=== PATIENT | female | born 1940 | race Caucasian/White ===

== ENCOUNTER 2020-08-22 07:32 | Outpatient (REF) | payer OTHER, SELFPAY ==
--- NOTE | 2020-08-22 08:07 | US_ITS ---
EXAMINATION: COLOR-FLOW DUPLEX IMAGING OF THE BILATERAL LOWER EXTREMITY ARTERIAL SYSTEM. VELOCITY MEASUREMENTS THROUGHOUT THE FEMORAL ARTERIES WITH ANKLE-BRACHIAL PERIPHERAL ARTERIAL TESTING. CLINICAL INFORMATION: This is an 80-year-old female with lower extremity edema. Peripheral vascular disease. Interventional Radiologist: Salvador Cavazos M.D., F.S.I.R., F.A.C.R. RIGHT FEMORAL RUNOFF VELOCITIES: The right common femoral artery measures 137 cm/s and biphasic. The right profunda femoral artery is 85 cm/s and is biphasic. Right proximal superficial femoral artery measures 92 cm/s and biphasic. Mid superficial femoral artery is 141 cm/s and biphasic. Distal right superficial femoral artery measures 333 cm/s and is biphasic. Right popliteal velocity measures 203 cm/s and is biphasic. The posterior tibial artery velocity measures 50 cm/s and was monophasic. Multiple collateral vessels are seen originating from the distal superficial femoral artery due to the high-grade stenosis. LEFT FEMORAL RUNOFF VELOCITIES: The left common femoral artery measures 107 cm/s and biphasic. The right profunda femoral artery is 95 cm/s and is biphasic. Right proximal superficial femoral artery measures 114 cm/s and biphasic. Mid superficial femoral artery is 122 cm/s and biphasic. Distal right superficial femoral artery measures 225 cm/s and is biphasic. Right popliteal velocity measures 146 cm/s and is biphasic. The posterior tibial artery velocity measures 13 cm/s and was monophasic. Multiple collateral vessels are seen in the leg extending off the distal superficial femoral artery due to the stenosis. Atherosclerotic plaque is seen throughout the arteries bilaterally. A cardiac arrhythmia was evident during the duplex portion of the examination. US/US arterial duplex LE IMPRESSION: 1. Abnormal peripheral arterial testing with bilateral hemodynamically significant high-grade stenoses within the superficial femoral arteries, right greater than left.
[2020-08-22 08:44] LABS: MANUAL DIFF FLAG NO
[2020-08-22 08:47] LABS: Basophils Percent Auto 0.4 % (0-2); Eosinophils Absolute Auto 0.2 X10*3/uL (0.0-0.4); Eosinophils Percent Auto 2.6 % (0-4); Hematocrit 23.3 % (37-47); Hemoglobin 7.2 g/dl (12.0-16.0); Imm Gran Abs Auto 0.03 X10*3/uL (0.00-0.03); Imm Gran Pct Auto 0.4 % (0.0-0.4); Lymphocytes Absolute Auto 1.6 X10*3/uL (1.2-4.9); Lymphocytes Percent Auto 22.5 % (20-40); Mean Corpuscular HGB Conc 30.9 g/dl (31.0-35.0); Mean Corpuscular Hemoglobin 27.6 pg (27.0-33.0); Mean Corpuscular Volume 89.3 fL (80-98); Mean Platelet Volume 11.8 fL (9.4-12.3); Monocytes Absolute Auto 0.5 X10*3/uL (0.1-1.2); Monocytes Percent Auto 6.3 % (2-11); Neutrophils Absolute Auto 4.9 X10*3/uL (2.0-8.3); Neutrophils Percent Auto 67.8 % (45-73); Platelet Count 319 X10*3/uL (160-400); Red Blood Count 2.61 X10*6/uL (4.20-5.50); Red Cell Distribution Width 14.5 % (11.0-16.0); White Blood Count 7.3 X10*3/uL (4.8-10.8)
[2020-08-22 08:54] LABS: Estimated Average Glucose 169 mg/dL; Hemoglobin A1c % 7.5 %
[2020-08-22 09:20] LABS: Albumin Level 3.7 g/dL (3.5-5.0); Anion Gap 13 (12-20); Blood Urea Nitrogen 43 mg/dL (9-16); Carbon Dioxide 29 mmol/L (22-29); Chloride 102 mmol/L (96-108); Estimated Glomerular Filt Rate 17; Iron 44 mcg/dL (30-160); Magnesium 1.5 mg/dL (1.6-2.6); Percent Iron Saturation 15 % (15-50); Phosphorus 3.1 mg/dL (2.7-4.5); Potassium 4.1 mmol/l (3.3-5.1); Sodium 140 mmol/L (135-145); Total Iron Binding Capacity 286 mcg/dL (228-428); Unsaturated Iron Binding 242 ug/dL; Uric Acid 6.2 mg/dL (2.4-5.7)
[2020-08-22 09:25] LABS: Anion Gap 13 (12-20); Blood Urea Nitrogen 44 mg/dL (9-16); Calcium 8.8 mg/dL (8.4-10.2); Carbon Dioxide 28 mmol/L (22-29); Chloride 103 mmol/L (96-108); Cholesterol 156 mg/dL; Estimated Glomerular Filt Rate 17; Glucose Fasting 188 mg/dL (60-99); HDL Cholesterol 47 mg/dL; LDL Cholesterol Calculated 63 mg/dl; Sodium 140 mmol/L (135-145); Triglycerides 231 mg/dL
[2020-08-22 09:42] LABS: Ferritin 9 ng/mL (10-250); Vitamin D 25-OH Total 22.9 ng/mL (>30)
[2020-08-22 10:03] LABS: Renal w Reflex Lab Use Only Order verified
== END 2020-08-22 07:33 | disposition home or self-care (01) ==
LOC: HO.LAB 07:32
PROVIDERS: PCP Nurse Practitioner Family; Visit Provider Internal Medicine Nephrology
DX: R60.0 Localized edema (principal); I73.9 Peripheral vascular disease, unspecified; E11.22 Type 2 diabetes mellitus with diabetic chronic kidney disease; I12.9 Hypertensive chronic kidney disease with stage 1 through stage 4 chronic kidney disease, or unspecified chronic kidney disease; N18.30 Chronic kidney disease, stage 3 unspecified; R80.9 Proteinuria, unspecified; Z79.1 Long term (current) use of non-steroidal anti-inflammatories (NSAID)
CPT/HCPCS: 36415; 80048; 80051; 80061; 82040; 82306; 82310; 82565; 82728; 83036; 83540; 83735; 84100; 84520; 84550; 85025; 93925

== ENCOUNTER 2020-08-29 09:28 | Outpatient (REF) | payer OTHER, SELFPAY ==
[2020-08-29 10:35] LABS: Glucose Urine UA 100 MG/DL (NEG); Leukocyte Esterase Urine NEG (NEG); Nitrite Urine NEG (NEG); Urine Blood TRACE (NEG); Urine Ketones NEG (NEG); Urine Protein 3+ MG/DL (NEG-TRACE)
[2020-08-29 10:46] LABS: Appearance Urine HAZY; Color Urine YELLOW
[2020-08-29 10:53] LABS: Anion Gap 19 (12-20); Blood Urea Nitrogen 38 mg/dL (9-16); Calcium 8.9 mg/dL (8.4-10.2); Carbon Dioxide 25 mmol/L (22-29); Chloride 101 mmol/L (96-108); Estimated Glomerular Filt Rate 19; Phosphorus 3.6 mg/dL (2.7-4.5); Potassium 4.7 mmol/l (3.3-5.1); Sodium 140 mmol/L (135-145)
[2020-08-29 11:03] LABS: RBC Urine 0-2 /HPF (0); Squamous Epithelial Cell Urine 1+ /LPF; WBC Urine 0 /HPF (0-4)
[2020-08-29 11:04] LABS: Amorphous Sediment Urine 1+ /LPF
[2020-08-29 11:11] LABS: Creatinine Urine 83.99 mg/dL
[2020-08-29 11:34] LABS: Renal w Reflex Lab Use Only Order verified
[2020-08-29 11:44] LABS: Total Protein Urine Random 1470 mg/dL (<12)
== END 2020-08-29 09:29 | disposition home or self-care (01) ==
LOC: HO.LAB 09:28
PROVIDERS: PCP Nurse Practitioner Family; Visit Provider Internal Medicine Nephrology
DX: E11.22 Type 2 diabetes mellitus with diabetic chronic kidney disease (principal); I12.9 Hypertensive chronic kidney disease with stage 1 through stage 4 chronic kidney disease, or unspecified chronic kidney disease; N18.30 Chronic kidney disease, stage 3 unspecified; R80.9 Proteinuria, unspecified; Z79.1 Long term (current) use of non-steroidal anti-inflammatories (NSAID)
CPT/HCPCS: 36415; 80051; 81001; 82043; 82310; 82565; 84100; 84156; 84520

== ENCOUNTER 2021-01-07 14:14 | Inpatient (IN) | payer MEDICARE, SELFPAY ==
[2021-01-07] VITALS (11 sets, daily range): BP systolic 164–191; BP diastolic 70–104; PULSE 82–100; RESP 18–27; TEMP 35.6–37.3; O2SAT 88–95; BMI 36.3
--- NOTE | ~2021-01-07 | US_ITS ---
EXAMINATION: US VENOUS ULTRASOUND WITH DOPPLER LOWER EXTREMITY, RIGHT CLINICAL INFORMATION: Right lower extremity swelling. Right lower extremity edema. COMPARISON: None TECHNIQUE: Ultrasound of the deep veins is performed from the hip to the calf with compression sonography and color and pulse Doppler assessment. Spectral analysis with color-flow imaging is performed. FINDINGS: There is normal venous compression and respiratory variation and augmented flow. The visualized common femoral vein, superficial femoral vein, profunda femoral vein, popliteal vein, and the trifurcation region shows no evidence of deep venous thrombosis. There is no significant popliteal fossa cyst. If the patient's symptoms persist, followup ultrasound in 5 days 7 days might be of value to exclude proximal propagation from a non-visualized calf vein. US/US venous duplex LE RT IMPRESSION: No DVT demonstrated in the right lower extremity.
--- NOTE | ~2021-01-07 | CT_ITS ---
EXAMINATION: CT CHEST WITHOUT CONTRAST CLINICAL INFORMATION: Assess soft tissue fullness COMPARISON: Radiographs the same day TECHNIQUE: Multidetector volumetric CT imaging of the chest was done. Axial MIP volume rendering provided. Sagittal and coronal reformatted images were obtained. This CT examination was performed using dose optimization techniques as appropriate, variously including the following: *Automated exposure control *Adjustment of mA and/or kV according to patient size (this includes techniques or standardized protocols for targeted exams where dose is matched to indication/reason for exam; i.e. extremities or head) *Use of iterative reconstruction technique DLP: 331 mGy-cm FINDINGS: WEBFOCUS DEVELOPER: Stable LUNGS: Extensive groundglass opacities upper lung zones and extensive consolidation likely accommodation of atelectasis pneumonia. Lower lobes. Surrounding moderate amount of sludge layering simple pleural effusions bilaterally. Air bronchograms noted. No discrete mass lesion. Slight motion degradation limits detail assessment. MEDIASTINUM: There is no mediastinal mass. Initial radiographic findings can be attributed. Normal pulmonary vasculature and ectasia. No adenopathy. No anterior mediastinal lesion. Reactive appearing subcentimeter mediastinal hilar lymph nodes. Moderately severe coronary atherosclerosis. PLEURA: As above AXILLA: Multiple small rounded lymph nodes extending into the retropectoral location measuring up to 12 mm short axis. UPPER ABDOMEN: Tiny gallstones without acute inflammatory changes. Tiny low-density lesion left lobe liver statistically a small cyst. This measures approximately 1 cm. OSSEOUS STRUCTURES: Chronic appearing moderate compression fracture anterior column of a lower dorsal vertebral body near thoracolumbar junction. CT/CT chest wo con IMPRESSION: There is no mediastinal mass. Extensive parenchymal disease consistent with resolving pneumonia with layering moderate-sized right greater than left pleural effusions. Mildly prominent lymph nodes likely reactive as above. Severe coronary atherosclerosis.
--- NOTE | ~2021-01-07 | XR_ITS ---
EXAMINATION: XR CHEST CLINICAL INFORMATION: Shortness of breath. COMPARISON: None TECHNIQUE: Frontal view of the chest was obtained. FINDINGS: Asymmetric right perihilar soft tissue fullness is present. Right paratracheal soft tissue fullness is also noted. Nonspecific bibasilar airspace disease. The heart size is within normal limit. No evidence of any pleural effusion or pneumothorax. XR/XR chest 1V IMPRESSION: Nonspecific bibasilar airspace disease and asymmetric fullness of the right hilum and paratracheal nonspecific opacity.
--- NOTE | 2021-01-07 14:33 | ECG_ITS ---
Test Reason : SOB Blood Pressure : / mmHG Vent. Rate : 093 BPM Atrial Rate : 093 BPM P-R Int : 128 ms QRS Dur : 094 ms QT Int : 382 ms P-R-T Axes : 041 002 064 degrees QTc Int : 474 ms Normal sinus rhythm Normal ECG When compared to the previous EKG of No significant changes seen Referred By: Zully Sanford Electronically Signed By:Toney Long
--- NOTE | 2021-01-07 14:35 | ED.SOB ---
HPI - SOB/Dyspnea General Chief Complaint: Upper Respiratory Symptoms Stated Complaint: SOB Time Seen by Provider: 01/07/21 14:32 Source: patient, family (Two daughters), EMS and site interpreter Mode of arrival: EMS Limitations: no limitations History of Present Illness HPI Narrative: 80 years old female brought in by EMS for evaluation of shortness of breath since yesterday. Patient is a poor historian unable to give a full history history was obtained from the daughters, patient since yesterday been complaining of tightness of chest with difficulty breathing and audible wheezing, patient also has been complaining of sore throat and decreased p.o. intake. Patient has been vaccinated for COVID x2. Family declined history of COPD. Reviewing patient chart patient with history of type 2 diabetes, hypertension, dyslipidemia, chronic kidney disease, PVD Patient initially has O2 sat of 86% on room air patient was placed on oxygen she is 91%. Related Data Home Medications Medication Instructions Recorded Confirmed aspirin 81 mg tablet,delayed 81 mg PO DAILY 06/26/20 12/26/20 release atorvastatin 40 mg tablet 40 mg PO DAILY 06/26/20 12/26/20 chlorthalidone 25 mg tablet 0 mg PO 06/26/20 12/26/20 gabapentin 300 mg capsule 300 mg PO TID 06/26/20 12/26/20 losartan 100 mg tablet 100 mg PO DAILY 06/26/20 12/26/20 metformin 1,000 mg tablet 0 mg PO 06/26/20 12/26/20 amlodipine 5 mg tablet 10 mg PO DAILY tab 12/26/20 12/26/20 Previous Rx's Medication Instructions Recorded docusate sodium 100 mg capsule 100 mg PO DAILY PRN #30 cap 06/26/20 halobetasol propionate 0.05 % 1 appl TOPICAL BID 15 Days #15 g 07/31/20 topical cream miscellaneous medical supply #1 ea 10/17/20 hydroxyzine HCl 50 mg tablet 50 mg PO BEDTIME 30 Days #30 tab 12/26/20 miscellaneous medical supply #1 ea 12/26/20 triamcinolone acetonide 0.1 % 1 appl TOPICAL BID 30 Days #30 g 12/26/20 topical cream Allergies Allergy/AdvReac Type Severity Reaction Status Date / Time Iodinated Contrast Media Allergy Unknown UNKNOWN Verified 12/26/20 13:27 [IODINATED CONTRAST MEDIA] Review of Systems Review of Systems: All other systems are reviewed and are negative Constitutional: Reports as per HPI and Reports no additional constitutional complaints Eyes: Reports as per HPI and Reports no additional eye complaints Reports system reviewed and no additional complaints, except as documented Cardiovascular: Reports as per HPI and Reports no additional cardiovascular complaints Respiratory: Reports as per HPI and Reports no additional respiratory complaints Gastrointestinal: Reports as per HPI and Reports no additional gastrointestinal complaints Genitourinary: Reports no additional female genitourinary complaints Musculoskeletal: Reports no additional musculoskeletal complaints Skin/Breast: Reports system reviewed and no additional complaints, except as docu Psychiatric: Reports no additional psychiatric complaints Endocrine: Reports no additional endocrine complaints Hematologic/Lymphatic: Reports no additional hematologic/lymphatic complaints Allergic/Immunologic: Reports no additional allergic/immunologic complaints Reports system reviewed and no additional complaints, except as documented and Reports Abnormal speech present [facility] Past Medical History Medical History CKD (chronic kidney disease) Diabetes Femoral artery stenosis High cholesterol Hypertension Lower extremity edema Psoriasis of scalp PVD (peripheral vascular disease) Surgical History History of female sterilization History of shoulder surgery Family History Family History Father No problems noted. Mother No problems noted. Social History Social History Alcohol intake: never Smoking Status: Never smoker Use of substances other than those prescribed or required for medical reasons: No Advance Directives: Yes Advance Directives Information Provided: Yes Advance Directives on File: No Physical Exam Vital Signs: Vital Signs: Last Vital Signs Temp 99.2 F 01/07/21 14:17 Pulse 100 01/07/21 14:17 Resp 27 H 01/07/21 14:17 BP 164/70 H 01/07/21 14:17 Pulse Ox 88 L 01/07/21 14:40 Oxygen Flow Rate 4 01/07/21 14:17 Body Mass Index 36.3 Vital signs have been reviewed as appeared to be correct. Blood pressure elevated. Heart rate elevated. Respiration rate normal. Temperature normal. Oxygen saturation is low. Appearance: Alert. Oriented X3. No acute distress. Head: Normal external exam. Normocephalic. Atraumatic. No Leyva signs noted. No raccoon eyes noted Eyes: PERRLA. EOMI. Conjunctiva and sclera normal. Eyelids normal. ENT: TM's Normal. Pharynx normal. Uvula midline. Moist mucous membranes. No trismus noted. No drooling noted. No muffled voice noted. Neck: Normal inspection. Neck supple. FROM. No adenopathy. Thyroid Normal. No meningeal signs. No neck mass noted. CVS: Normal heart rate and rhythm. Heart sound normal. No murmurs noted. Pulses normal throughout. Respiratory: No respiratory distress. Painless inspiration. Breath sounds normal. No wheezes/rales/rhonchi noted. Chest nontender. No accessory muscle usage noted or decreased air movement noted. Abdomen: Soft and nontender. Bowel sounds normal in all 4 quadrants. No distention noted. No organomegaly noted. No visible injury noted. Rectal exam: Brown stool with trace of blood positive for guaiac. Back: No CVA tenderness. Full range of motion noted. Skin: Skin warm and dry. Normal skin color. Normal skin turgor. No rashes/lesions/lacerations noted. Extremities: No lower extremity edema. Extremities exhibit normal range of motion. Extremities nontender. Neuro: Oriented X 3. No motor deficit. No sensory deficit. Reflexes normal. Course Course Course Narrative: Assessment and plan. 80-year-old female with history of chronic anemia found to have worsening of her anemia with dropping of her hemoglobin, patient positive to blood in the stool, patient was seen and evaluated by GI consult in the emergency department. Patient only 2 units of RBCs blood transfusion since patient is symptomatic from severe anemia (patient is hypoxic). MDM - SOB/Dyspnea Lab Data Attestation: I reviewed the patient's lab results. Result diagrams: 01/07/21 14:34 01/07/21 14:34 Labs: Lab Results 01/07/21 01/07/21 01/07/21 Range/Units 14:34 14:34 14:34 WBC 8.4 (4.8-10.8) X10*3/uL RBC 2.28 L (4.20-5.50) X10*6/uL Hgb 6.5 L* (12.0-16.0) g/dl Hct 20.8 L* (37-47) % MCV 91.2 (80-98) fL MCH 28.5 (27.0-33.0) pg MCHC 31.3 (31.0-35.0) g/dl RDW 15.9 (11.0-16.0) % Plt Count 334 (160-400) X10*3/uL MPV 10.8 (9.4-12.3) fL Immature Gran % (Auto) 0.6 H (0.0-0.4) % Neut % (Auto) 84.2 H (45-73) % Lymph % (Auto) 9.6 L (20-40) % [place] % (Auto) 5.3 (2-11) % Eos % (Auto) 0.1 (0-4) % Baso % (Auto) 0.2 (0-2) % Lymph # (Auto) 0.8 L (1.2-4.9) X10*3/uL [place] # (Auto) 0.5 (0.1-1.2) X10*3/uL Eos # (Auto) 0.0 (0.0-0.4) X10*3/uL Baso # (Auto) 0.0 (0.0-0.2) X10*3/uL Abs Immat Gran (auto) 0.05 H (0.00-0.03) X10*3/uL Absolute Neuts (auto) 7.1 (2.0-8.3) X10*3/uL Absolute Nucleated RBC 0.000 (0.0-0.012) X10*3/uL Nucleated RBC % (auto) 0.0 (0.0-0.2) /100WBC Sodium 140 (135-145) mmol/L Potassium 5.5 H (3.3-5.1) mmol/L Chloride 106 (96-108) mmol/L Carbon Dioxide 17 L (22-29) mmol/L Anion Gap 23 H (12-20) BUN 65 H D (9-16) mg/dL Creatinine 3.41 H (0.5-1.4) mg/dL Estim Creat Clear Calc 13.7 Estimated GFR 13 Random Glucose 268 H (60-115) mg/dL Lactic Acid 3.4 H* (0.5-2.0) mmol/L Calcium 9.0 (8.4-10.2) mg/dL Total Bilirubin 0.3 (0.0-1.0) mg/dL Direct Bilirubin < 0.2 (0.0-0.5) mg/dL AST 13 (5-31) U/L ALT 11 (0-31) U/L Alkaline Phosphatase 83 (39-117) U/L Troponin I High Sens (<3.5-17.0) ng/L B-Natriuretic Peptide (<100) pg/mL Total Protein 6.9 (6.5-8.0) g/dL Albumin 3.7 (3.5-5.0) g/dL Lipase 28 (8-78) U/L Stool Occult Blood (NEGATIVE) COVID-19 (ROBBIE) (Negative) COVID-19 Clin Com 01/07/21 01/07/21 01/07/21 Range/Units 14:34 14:35 14:50 WBC (4.8-10.8) X10*3/uL RBC (4.20-5.50) X10*6/uL Hgb (12.0-16.0) g/dl Hct (37-47) % MCV (80-98) fL MCH (27.0-33.0) pg MCHC (31.0-35.0) g/dl RDW (11.0-16.0) % Plt Count (160-400) X10*3/uL MPV (9.4-12.3) fL Immature Gran % (Auto) (0.0-0.4) % Neut % (Auto) (45-73) % Lymph % (Auto) (20-40) % [place] % (Auto) (2-11) % Eos % (Auto) (0-4) % Baso % (Auto) (0-2) % Lymph # (Auto) (1.2-4.9) X10*3/uL [place] # (Auto) (0.1-1.2) X10*3/uL Eos # (Auto) (0.0-0.4) X10*3/uL Baso # (Auto) (0.0-0.2) X10*3/uL Abs Immat Gran (auto) (0.00-0.03) X10*3/uL Absolute Neuts (auto) (2.0-8.3) X10*3/uL Absolute Nucleated RBC (0.0-0.012) X10*3/uL Nucleated RBC % (auto) (0.0-0.2) /100WBC Sodium (135-145) mmol/L Potassium (3.3-5.1) mmol/L Chloride (96-108) mmol/L Carbon Dioxide (22-29) mmol/L Anion Gap (12-20) BUN (9-16) mg/dL Creatinine (0.5-1.4) mg/dL Estim Creat Clear Calc Estimated GFR Random Glucose (60-115) mg/dL Lactic Acid (0.5-2.0) mmol/L Calcium (8.4-10.2) mg/dL Total Bilirubin (0.0-1.0) mg/dL Direct Bilirubin (0.0-0.5) mg/dL AST (5-31) U/L ALT (0-31) U/L Alkaline Phosphatase (39-117) U/L Troponin I High Sens 79.6 H (<3.5-17.0) ng/L B-Natriuretic Peptide 1509 H (<100) pg/mL Total Protein (6.5-8.0) g/dL Albumin (3.5-5.0) g/dL Lipase (8-78) U/L Stool Occult Blood POSITIVE (NEGATIVE) COVID-19 (ROBBIE) Negative (Negative) COVID-19 Clin Com See Note Imaging Data Chest x-ray: Radiologist's impression: Nonspecific bibasilar airspace disease and asymmetric fullness of the right hilum and paratracheal nonspecific opacity. ECG Data Interpretation: Normal sinus rhythm at 93 beats per minute, left axis deviation, normal intervals, no ST-T changes. Critical Care Time Critical Care Time Critical Care Time: Yes Total Critical Care Time: 60 Attestation: I spent 60 minutes providing critical care service to the patient, this including time spent at the bedside to evaluate the patient, reassess the patient, monitoring vital signs, review labs, and radiographic studies, counseling the patient/family and getting consent for blood transfusion, discussing the case with consultants, disposition the patient. Discharge Plan Discharge Clinical Impression: Hypoxia Anemia Qualifiers: Anemia type: unspecified type Qualified Code(s): D64.9 - Anemia, unspecified Chronic renal insufficiency Qualifiers: Chronic kidney disease stage: unspecified stage Qualified Code(s): N18.9 - Chronic kidney disease, unspecified Patient Disposition: Admitted As Inpatient
[2021-01-07 14:41] LABS: MANUAL DIFF FLAG NO
[2021-01-07 14:42] LABS: Basophils Percent Auto 0.2 % (0-2); Eosinophils Percent Auto 0.1 % (0-4); Imm Gran Abs Auto 0.05 X10*3/uL (0.00-0.03); Imm Gran Pct Auto 0.6 % (0.0-0.4); Lymphocytes Absolute Auto 0.8 X10*3/uL (1.2-4.9); Lymphocytes Percent Auto 9.6 % (20-40); Mean Corpuscular HGB Conc 31.3 g/dl (31.0-35.0); Mean Corpuscular Hemoglobin 28.5 pg (27.0-33.0); Mean Corpuscular Volume 91.2 fL (80-98); Mean Platelet Volume 10.8 fL (9.4-12.3); Monocytes Absolute Auto 0.5 X10*3/uL (0.1-1.2); Monocytes Percent Auto 5.3 % (2-11); Neutrophils Absolute Auto 7.1 X10*3/uL (2.0-8.3); Neutrophils Percent Auto 84.2 % (45-73); Platelet Count 334 X10*3/uL (160-400); Red Blood Count 2.28 X10*6/uL (4.20-5.50); Red Cell Distribution Width 15.9 % (11.0-16.0); White Blood Count 8.4 X10*3/uL (4.8-10.8)
[2021-01-07 14:45] LABS: Hematocrit 20.8 % (37-47); Hemoglobin 6.5 g/dl (12.0-16.0)
[2021-01-07 14:54] LABS: OBS Int Ctl Valid YES; OBS1 POSITIVE (NEGATIVE)
--- NOTE | 2021-01-07 15:05 | PM.GICN ---
History of Present Illness Data of Consult Service Date: 01/07/21 Primary Care Provider: Kay Mata MD HPI 80 yr old f with hx of CKD, DM, HTN, chronic diastolic chf, PAD, who I am seeing for assessment for anemia. She had 2 d hx of increasing SOB and exertional dyspnea also with orthopnea and increased ankle edema. She denied chest pain, cough, or sputum. She denies any fever, chills, blood per rectum, melena. No abdominal pain. She does not use O2 at baseline and is usually able to ambulate with a walker and is self caring per the daghter. In ED noted to be hypoxic, and required to be put on high flow o2. Labs: Hgb 6.5 -gradually downtrending over the last year, creatinne 3.41, iron sat low, high BNP, raised trop (urine PCr ratio elevated earlier this year with pos protein on UA) She was transfused 1 unit in the ED CT scan with severe coronary atherosclerosis, pleural effusions, and groundglass opacities Review of Systems Review of Systems: Constitutional : No Weight loss, No Fever, No Chills ENT/Mouth : No sore throat, No Rhinorrhea Eyes: No Swelling, No Redness Cardiovascular : No Chest Pain, N Respiratory : No Cough, No Sputum, No Wheezing Gastrointestinal : see HPI Genitourinary : NO Dysuria, No Urinary Frequency, No Hematuria, No Urgency Musculoskeletal : No joint pain, No Myalgias, No Joint Swelling Skin : No Skin Lesions, No rash Neuro : No Weakness, No Numbness, No Dizziness, No Headache Psych : No Anxiety/Panic, No Depression Heme/Lymph: No Bruising, No Lymphadenopathy Endocrine : No Polyuria, No Polydipsia All other systems reviewed and are negative. [facility], [facility] Past Medical History Medical History CKD (chronic kidney disease) Diabetes Femoral artery stenosis High cholesterol Hypertension Lower extremity edema Psoriasis of scalp PVD (peripheral vascular disease) Family History Family History Father No problems noted. Mother No problems noted. Surgical History Surgical History History of female sterilization History of shoulder surgery Social History Social History Alcohol intake: never Smoking Status: Never smoker Use of substances other than those prescribed or required for medical reasons: No Advance Directives: Yes Advance Directives Information Provided: Yes Advance Directives on File: No Meds Allergies Allergy/AdvReac Type Severity Reaction Status Date / Time Iodinated Contrast Media Allergy Unknown UNKNOWN Verified 12/26/20 13:27 [IODINATED CONTRAST MEDIA] Home Medications Medication Instructions Recorded Confirmed Last Taken Type amlodipine 10 mg PO DAILY 01/07/21 01/07/21 Unknown History aspirin 81 mg PO DAILY 01/07/21 01/07/21 Unknown History atorvastatin 40 mg PO DAILY 01/07/21 01/07/21 Unknown History chlorthalidone 25 mg PO DAILY 01/07/21 01/07/21 Unknown History gabapentin 300 mg PO DAILY 01/07/21 01/07/21 Unknown History losartan 100 mg PO DAILY 01/07/21 01/07/21 Unknown History metformin 1,000 mg PO BID 01/07/21 01/07/21 Unknown History Physical Exam Vital Signs: Vital Signs: Last Vital Signs Temp 99.2 F 01/07/21 14:17 Pulse 100 01/07/21 14:17 Resp 27 H 01/07/21 14:17 BP 164/70 H 01/07/21 14:17 Pulse Ox 88 L 01/07/21 14:40 Oxygen Flow Rate 4 01/07/21 14:17 Body Mass Index 36.3 EXAM: GENERAL: The patient is well developed and nontoxic, tachypneic VITAL SIGNS:see workflow HEENT: Nonicteric sclerae, PERRLA, EOMI. Oropharynx clear. Moist mucous membranes. Conjunctivae appear well perfused. No thyroid mass. CHEST: Chest wall is nontender. HEART: Regular rate and rhythm without murmurs. LUNGS: coarse crackles both bases, SOB at rest ABDOMEN: Soft, positive bowel sounds, nontender, no organomegaly.no flank tenderness GENITAL:not done RECTAL: not done SKIN: No rash, no excessive bruising, petechiae, or purpura. NEUROLOGIC: Cranial nerves II-XII intact without motor/sensory deficit. PSych-appropriate affect Extrem: General: Yes edema Results Labs CBC & Chem 7: 01/07/21 14:34 01/07/21 14:34 Labs: Short CBC 01/07/21 Range/Units 14:34 WBC 8.4 (4.8-10.8) X10*3/uL Hgb 6.5 L* (12.0-16.0) g/dl Hct 20.8 L* (37-47) % Plt Count 334 (160-400) X10*3/uL Imaging Chest x-ray: Attestation: I personally reviewed and interpreted this imaging study as follows: My impression: rotated film-right oblique view, left costophrenic angle obliterated suggesting pleural effusion, alveolar shadowing right LL Assessment and Plan (1) Anemia: Qualifiers: Anemia type: unspecified type Qualified Code(s): D64.9 - Anemia, unspecified Status: Acute 1/ Progressive iron def anemia, patient said it has been many years since she had any type of endosocpy whch was in [place], concern would e neoplasia, ddx; AVM, malabsorption, gastritis, PUD, enteropathy. Also compunded by CKD prob from HTN/DM with evidence of nephropathy Anemia of chronic disease Right now she would be unstable for any type of endoscopy given cardio respiratory failure and requirement for high flow O2 from what appears to be CHF. ECG with normal SR. Covid was negative (could be false negative, might need to recheck if no improvement) PLAN: 1/ Optimize cardio repiratory status, transfuse as needed aim for HGb 9-10 g/dl 2/ diurese, hold nephrotoxins, LEANDRO-i/ARB 3/ can add PPI e.g pantoprazole 40 mg BID 4/ once she is more stable can re evaluate for EGD and colonoscopy, possibly before d/c
[2021-01-07 15:07] LABS: COVID-19 Test Negative (Negative)
[2021-01-07 15:15] LABS: Lactic Acid 3.4 mmol/L (0.5-2.0)
[2021-01-07 15:20] LABS: Alanine Aminotransferase 11 U/L (0-31); Albumin Level 3.7 g/dL (3.5-5.0); Alkaline Phosphatase 83 U/L (39-117); Anion Gap 23 (12-20); Aspartate Amino Transferase 13 U/L (5-31); Bilirubin Direct < 0.2 mg/dL (0.0-0.5); Bilirubin Total 0.3 mg/dL (0.0-1.0); Blood Urea Nitrogen 65 mg/dL (9-16); Carbon Dioxide 17 mmol/L (22-29); Chloride 106 mmol/L (96-108); Creatinine Clr Calc Pharmacy 13.7; Estimated Glomerular Filt Rate 13; Glucose Random 268 mg/dL (60-115); Lipase 28 U/L (8-78); Potassium 5.5 mmol/L (3.3-5.1); Sodium 140 mmol/L (135-145); Total Protein 6.9 g/dL (6.5-8.0)
[2021-01-07 15:26] LABS: B Type Natriuretic Peptide 1509 pg/mL (<100); Troponin-I High Sensitivity 79.6 ng/L (<3.5-17.0)
--- NOTE | 2021-01-07 15:29 | PC.NURSE ---
daughter at bedside. left phone number. aware of plan of care and denied having any questions.
--- NOTE | 2021-01-07 16:04 | P.HPHOSP_ITS ---
History of Present Illness Date of Service: 01/07/21 Chief Complaint: sob 80F with pmh of CKDIV (baseline creatinine around 2.5), DM, HTN, chronic diastolic chf, PAD, came to ED via EMS complaining of SOB. Patient states that she started feeling short of breath about 2 days prior to presentation. She states that shortness of breath is worse on lying down and relieved by sitting up. It is worse on exertion. She does have chronic shortness of breath that has worsened, but last 2 days have been the worst. On day of presentation patient was so short of breath that EMS was called and brought her to the ED. Patient also noted worsening of chronic lower extremity edema. She denies any fever, chills, blood per rectum. In ED noted to be hypoxic hemoglobin decrease of 6.5 (has been slowly decreasing over last year), acute kidney injury with a creatinine of 3.41, chest x-ray showed nonspecific bibasilar airspace disease an asymmetric fullness of the right hilum and paratracheal nonspecific opacity. She was transfused 1 unit in the ED. Review of Systems Review of Systems: Constitutional: Denies fever, denies Chills Eyes: denies blurry vision ENT: denies sore throat CVS: chest pain Respiratory: dyspnea GI: no abdominal pain : denies dysuria MSK: denies neck pain Skin: denies rash Neuro: denies specific motor weakness Psych: denies suicidal ideation Endocrine: denies heat/cold intoleratnce Hematologic: denies easy bleeding Allergy: denies hives [facility] Medical History CKD (chronic kidney disease) Diabetes Femoral artery stenosis High cholesterol Hypertension Lower extremity edema Psoriasis of scalp PVD (peripheral vascular disease) Family History Father No problems noted. Mother No problems noted. Family history: reviewed and not pertinent Surgical History History of female sterilization History of shoulder surgery Social History Alcohol intake: never Smoking Status: Never smoker Use of substances other than those prescribed or required for medical reasons: No Advance Directives: Yes Advance Directives Information Provided: Yes Advance Directives on File: No Meds Allergies Allergy/AdvReac Type Severity Reaction Status Date / Time Iodinated Contrast Media Allergy Unknown UNKNOWN Verified 12/26/20 13:27 [IODINATED CONTRAST MEDIA] Home Medications Medication Instructions Recorded Confirmed Last Taken Type amlodipine 10 mg PO DAILY 01/07/21 01/07/21 Unknown History aspirin 81 mg PO DAILY 01/07/21 01/07/21 Unknown History atorvastatin 40 mg PO DAILY 01/07/21 01/07/21 Unknown History chlorthalidone 25 mg PO DAILY 01/07/21 01/07/21 Unknown History gabapentin 300 mg PO DAILY 01/07/21 01/07/21 Unknown History losartan 100 mg PO DAILY 01/07/21 01/07/21 Unknown History metformin 1,000 mg PO BID 01/07/21 01/07/21 Unknown History Physical Exam Vital Signs and Narrative: Vital Signs: Last Vital Signs Temp 99.2 F 01/07/21 14:17 Pulse 100 01/07/21 14:17 Resp 27 H 01/07/21 14:17 BP 164/70 H 01/07/21 14:17 Pulse Ox 88 L 01/07/21 14:40 Oxygen Flow Rate 4 01/07/21 14:17 Body Mass Index 36.3 General: no acute distress now while on ventimask HEENT: atraumatic Neck: normal to visual inspection CVS: S1, S2, RRR, 3+ edema Resp: diminished Chest: non tender GI: soft, non tender, non distended : no CVA tenderness Skin: no rashes Extremities: no edema Neuro: Oriented X3, grossly intact Psych: cooperative Results Labs CBC and Chem 7: 01/07/21 14:34 01/07/21 14:34 Labs: Laboratory Results - last 24 hr 01/07/21 01/07/21 01/07/21 14:34 14:34 14:34 MCV 91.2 MCH 28.5 MCHC 31.3 RDW 15.9 Plt Count 334 MPV 10.8 Immature Gran % (Auto) 0.6 H Neut % (Auto) 84.2 H Lymph % (Auto) 9.6 L [place] % (Auto) 5.3 Eos % (Auto) 0.1 Baso % (Auto) 0.2 Lymph # (Auto) 0.8 L [place] # (Auto) 0.5 Eos # (Auto) 0.0 Baso # (Auto) 0.0 Abs Immat Gran (auto) 0.05 H Absolute Neuts (auto) 7.1 Absolute Nucleated RBC 0.000 Nucleated RBC % (auto) 0.0 Anion Gap 23 H Estim Creat Clear Calc 13.7 Estimated GFR 13 Random Glucose 268 H Lactic Acid 3.4 H* Calcium 9.0 Total Bilirubin 0.3 Direct Bilirubin < 0.2 AST 13 ALT 11 Alkaline Phosphatase 83 Troponin I High Sens B-Natriuretic Peptide Total Protein 6.9 Albumin 3.7 Lipase 28 Stool Occult Blood COVID-19 (ROBBIE) COVID-19 Clin Com 01/07/21 01/07/21 01/07/21 14:34 14:35 14:50 MCV MCH MCHC RDW Plt Count MPV Immature Gran % (Auto) Neut % (Auto) Lymph % (Auto) [place] % (Auto) Eos % (Auto) Baso % (Auto) Lymph # (Auto) [place] # (Auto) Eos # (Auto) Baso # (Auto) Abs Immat Gran (auto) Absolute Neuts (auto) Absolute Nucleated RBC Nucleated RBC % (auto) Anion Gap Estim Creat Clear Calc Estimated GFR Random Glucose Lactic Acid Calcium Total Bilirubin Direct Bilirubin AST ALT Alkaline Phosphatase Troponin I High Sens 79.6 H B-Natriuretic Peptide 1509 H Total Protein Albumin Lipase Stool Occult Blood POSITIVE COVID-19 (ROBBIE) Negative COVID-19 Clin Com See Note Imaging Radiologist's Impressions: Impressions Chest X-Ray 01/07/21 14:32 IMPRESSION: Nonspecific bibasilar airspace disease and asymmetric fullness of the right hilum and paratracheal nonspecific opacity. Assessment and Plan (1) Hypoxia: Status: Acute 80F presented with sob, found to be hypoxic, anemic, dari, elevated bnp Acute hypoxic respiratory failure Acute on chronic diastolic CHF and symptomatic anemia Transfuse PRBC Monitor CBC Suspect anemia mostly related to renal failure, possibly some bleeding sources well NPO after midnight GI to evaluate IV Lasix, monitor BMP closely Check echo Acute kidney injury on CKD 4 Suspect cardiorenal IV Lasix, monitor BMP Soft tissue fullness on chest x-ray Follow-up CT chest Peripheral vascular disease Hold aspirin for anemia Continue statin Diabetes Hold metformin Insulin sliding scale Full code VTE prophylaxis - mechanical due to anemia
[2021-01-07 16:18] LABS: Iron 27 mcg/dL (30-160); Percent Iron Saturation 9 % (15-50); Total Iron Binding Capacity 286 mcg/dL (228-428); Unsaturated Iron Binding 259 ug/dL
[2021-01-07 16:38] LABS: Ferritin 36 ng/mL (10-250)
[2021-01-07 16:39] LABS: Reflex Lactate? Lactic Acid Added
[2021-01-07 17:39] LABS: ~Lactic Acid-LAB USE ONLY 1.1 mmol/L (0.5-2.0)
--- NOTE | 2021-01-07 18:02 | PC.NURSE ---
attempt to call report to [facility] [place] secretary judie states next shift will be taking report.
--- NOTE | 2021-01-07 19:38 | PC.NURSE ---
nurse to nurse report given to Ne WALKER
[2021-01-07 20:29] LABS: Glucose, Whole Blood 192 mg/dL (60-115)
[2021-01-07] MEDS: Insulin Lispro 100 UNIT/ML 3 ML VIAL SUBCUT (20:31)
[2021-01-07] MEDS: Furosemide 40 MG/4 ML VIAL IVPUSH (20:31)
[2021-01-07] MEDS: 0.9 % Sodium Chloride Flush 3 ML SYRINGE IVFLUSH (20:31)
[2021-01-08] VITALS (10 sets, daily range): BP systolic 164–187; BP diastolic 76–86; PULSE 80–92; RESP 18–20; TEMP 36.2–36.9; O2SAT 88–96
[2021-01-08 06:55] LABS: Hemoglobin 7.3 g/dl (12.0-16.0); Mean Corpuscular HGB Conc 31.7 g/dl (31.0-35.0); Mean Corpuscular Hemoglobin 28.2 pg (27.0-33.0); Mean Corpuscular Volume 88.8 fL (80-98); Mean Platelet Volume 11.1 fL (9.4-12.3); Platelet Count 337 X10*3/uL (160-400); Red Blood Count 2.59 X10*6/uL (4.20-5.50); Red Cell Distribution Width 15.8 % (11.0-16.0)
[2021-01-08 07:17] LABS: Anion Gap 17 (12-20); Blood Urea Nitrogen 67 mg/dL (9-16); Carbon Dioxide 22 mmol/L (22-29); Chloride 107 mmol/L (96-108); Creatinine Clr Calc Pharmacy 14.4; Estimated Glomerular Filt Rate 14; Glucose Random 163 mg/dL (60-115); Potassium 5.4 mmol/L (3.3-5.1); Sodium 141 mmol/L (135-145)
[2021-01-08 07:17] LABS: Glucose, Whole Blood 159 mg/dL (60-115)
[2021-01-08] MEDS: amLODIPine Besylate 10 MG TABLET PO (08:55)
[2021-01-08] MEDS: 0.9 % Sodium Chloride Flush 3 ML SYRINGE IVFLUSH ×3 (08:55→20:52)
[2021-01-08] MEDS: Furosemide 40 MG/4 ML VIAL IVPUSH ×2 (08:56→17:06)
[2021-01-08] MEDS: Sodium Polystyrene Sulfon/Sorb 15 GM/60 ML ORAL.SUSP 30 GM PO (09:04)
[2021-01-08] MEDS: Pantoprazole Sodium 40 MG/10 ML VIAL IVPUSH ×2 (09:04→17:05)
[2021-01-08 09:10] LABS: Immature Retic Fraction 27.5 % (3.0-15.9); Retic HGB Equivalent 26.8 pg (30.0-35.0); Reticulocyte Percent 1.8 % (0.5-1.8); Reticulocytes Absolute 0.046 X10*6/uL (0.026-0.095)
[2021-01-08 09:13] LABS: Lactate Dehydrogenase 237 U/L (122-220)
[2021-01-08] MEDS: Gabapentin 300 MG CAPSULE PO (09:18)
--- NOTE | 2021-01-08 09:56 | MHC.CM.PN ---
CM met with Patient at bedside and addressed IMM, providing Patient with the original and placing a copy on the chart. With Patient's approval, CM also spoke with Daughter/HCP/Caregiver/Emilee @ [phone]. Patient lives with Emilee and her Son-in-Law in a first floor house, in an Adult Foster Care setting with [facility]. Goal for dc is to return home and resume these services and CM has initiated and will follow for dc planning.
[2021-01-08 10:01] LABS: Folate 11.1 ng/mL (> or = 4.0); Vitamin B12 < 146 pg/mL (200-900)
--- NOTE | 2021-01-08 10:12 | P.CDIC_ITS ---
CDI Concurrent Query Service Date: 01/08/21 Documentation Clarification: Please clarify if you are treating a proba ble/suspected/likely or confirmed: Acute blood loss anemia POA Please specify if known or undetermined Provider Response: Anemia PLEASE DO NOT DELETE/MODIFY EXISTING CONTENT Additional information is needed in order to code to the highest accuracy and appropriate Severity of Illness (SOI). Please clarify the information noted below in your progress notes and discharge summary. Risk Factors/Clinical Indicators/Treatments Short of breath - HGB 6.5/HCT 20.8 Transfuse 1 unit PRBC PN: 01/07 - Possibly some bleeding source symptomatic anemia blood per rectum CDS: Jeannie Alexis CCS, CDIS Contact Number: [phone] Please Review the information above and exercise your independent professional judgment in responding to the query. If you concur, pleas document in the PROGRESS NOTES and DISCHARGE SUMMARY. If you do not agree with the query, please document in the query above. THIS QUERY IS PART OF THE PERMANENT MEDICAL RECORD
[2021-01-08 11:02] LABS: Glucose, Whole Blood 158 mg/dL (60-115)
[2021-01-08] MEDS: Insulin Lispro 100 UNIT/ML 3 ML VIAL SUBCUT ×2 (11:39→20:52)
[2021-01-08] MEDS: Cyanocobalamin (Vitamin B-12) 1,000 MCG/ML VIAL 1000 MCG IM (12:13)
--- NOTE | 2021-01-08 12:42 | PM.CNNEP ---
History of Present Illness Reason for Consult Consult date: 01/08/21 Reason for consult: NAHID Chief Complaint Chief complaint: Anemia, CHF, Acute hypoxic respiratory failure History of Present Illness Narrative: 80F with H/O CKD IV (baseline creatinine around 2.5), DM, HTN, chronic diastolic chf, PAD, came to ED via EMS complaining of SOB. She had beenfeeling short of breath about 2 days prior to presentation with orthopnea. She also had worsening of chronic lower extremity edema. She denied any fever, chills or blood loss. In ED noted to be hypoxic with hemoglobin decrease of 6.5 (has been slowly decreasing over last year), acute kidney injury with a creatinine of 3.41. Her chest x-ray showed nonspecific bibasilar airspace disease an asymmetric fullness of the right hilum and paratracheal nonspecific opacity. She was transfused 1 unit in the ED and was admitted for further management. Nephrology has been consulted to assist in her clinical care. Review of Systems Review of Systems Yes all other systems are reviewed and are negative PMFSH Past Medical History Medical History CKD (chronic kidney disease) Diabetes Femoral artery stenosis High cholesterol Hypertension Lower extremity edema Psoriasis of scalp PVD (peripheral vascular disease) Family History Family History Father No problems noted. Mother No problems noted. Family history: reviewed and not pertinent Surgical History Surgical History History of female sterilization History of shoulder surgery Social History Social History Household Members: Children Household Members Other:: Daughter Housing: House Do you presently have visiting nurse or other home services: No Alcohol intake: never Smoking Status: Never smoker Use of substances other than those prescribed or required for medical reasons: No Currently Displaying Signs/Symptoms of Drug Intoxication Withdrawal: No Have you been hit, kicked, punched, or otherwise hurt by someone within the past year? If so, by whom?: No Do you feel safe in your current relationship?: No Is there a partner from a previous relationship who is making you feel unsafe now?: No Are you made to feel afraid or neglected: No Advance Directives: Yes Advance Directives Information Provided: Yes Advance Directives on File: No Advance Directives Date on File: 01/08/21 Do you have thoughts of harming others: None Do you have a plan to hurt others: No Plan Recently lost weight without trying: No Eating poorly because of decreased appetite: No Nutrition Risks: No Nutritional Risk Patient : No : No Poor oral hygiene: No service: No Current occupational status: retired and disabled Meds Allergies Allergy/AdvReac Type Severity Reaction Status Date / Time Iodinated Contrast Media Allergy Unknown UNKNOWN Verified 12/26/20 13:27 [IODINATED CONTRAST MEDIA] Active Medications: Current Medications Generic Name Dose Route Start Last Admin Trade Name Freq PRN Reason Stop Dose Admin Acetaminophen 650 mg 01/07/21 18:06 Acetaminophen 325 Mg Tablet PO Q6H PRN Pain, Mild (Pain Scale 1-3) Amlodipine Besylate 10 mg 01/08/21 09:00 01/08/21 08:55 Amlodipine Besylate 10 Mg Tablet PO 10 mg DAILY PALOMO Administration Protocol Atorvastatin Calcium 40 mg 01/08/21 21:00 Atorvastatin Calcium 40 Mg Tablet PO BEDTIME PALOMO Cyanocobalamin 1,000 mcg 01/08/21 11:00 01/08/21 12:13 Cyanocobalamin (Vitamin B-12) 1,000 Mcg/Ml Vial IM 01/14/21 09:01 1,000 mcg DAILY PALOMO Administration Furosemide 40 mg 01/07/21 18:06 01/08/21 08:56 Furosemide 40 Mg/4 Ml Vial IVPUSH 40 mg BID@0900,1800 PALOMO Administration Protocol Gabapentin 300 mg 01/08/21 09:00 01/08/21 09:18 Gabapentin 300 Mg Capsule PO 300 mg DAILY PALOMO Administration Insulin Human Lispro 0 unit 01/07/21 18:06 01/08/21 11:39 Insulin Lispro 100 Unit/Ml 3 Ml Vial SUBCUT 2 unit QIDACHS [facility] Administration Protocol Pantoprazole Sodium 40 mg 01/08/21 09:00 01/08/21 09:04 Pantoprazole Sodium 40 Mg/10 Ml Vial IVPUSH 40 mg BID@0630,1630 PALOMO Administration Sodium Chloride 3 ml 01/08/21 00:00 01/08/21 08:55 0.9 % Sodium Chloride Flush 3 Ml Syringe IVFLUSH 3 ml QSHIFT PALOMO Administration Home Medications Medication Instructions Recorded Confirmed Last Taken Type amlodipine 10 mg PO DAILY 01/07/21 01/07/21 Unknown History aspirin 81 mg PO DAILY 01/07/21 01/07/21 Unknown History atorvastatin 40 mg PO DAILY 01/07/21 01/07/21 Unknown History chlorthalidone 25 mg PO DAILY 01/07/21 01/07/21 Unknown History gabapentin 300 mg PO DAILY 01/07/21 01/07/21 Unknown History losartan 100 mg PO DAILY 01/07/21 01/07/21 Unknown History metformin 1,000 mg PO BID 01/07/21 01/07/21 Unknown History Physical Exam Vital Signs: Last Vital Signs Temp 98.5 F 01/08/21 11:40 Pulse 92 01/08/21 11:40 Resp 20 01/08/21 11:40 BP 164/82 H 01/08/21 11:40 Pulse Ox 96 01/08/21 11:40 Oxygen Flow Rate 4 01/07/21 14:17 Body Mass Index 36.3 Const General: no acute distress Orientation/consciousness: patient oriented x3 Neck Neck: Yes supple Resp Auscultation: diminished lung sounds Cardio Jugular venous distension: JVD GI Palpation (GI): Soft to palpation Neuro General: patient oriented x3 Results Lab Results Result Diagrams: 01/08/21 05:19 01/08/21 05:19 Lab results: Chemistry 01/07/21 01/08/21 14:34 05:19 Sodium 140 141 Potassium 5.5 H 5.4 H Carbon Dioxide 17 L 22 BUN 65 H D 67 H Creatinine 3.41 H 3.24 H Calcium 9.0 9.0 Hematology 01/07/21 01/08/21 14:34 05:19 WBC 8.4 9.0 Hgb 6.5 L* 7.3 L Plt Count 334 [id number] Assessment and Plan (1) Chronic renal insufficiency: Qualifiers: Chronic kidney disease stage: unspecified stage Qualified Code(s): N18.9 - Chronic kidney disease, unspecified Problem details: Acute on chronic diastolic CHF and symptomatic anemia with Cardio renal syndrome Needs serum immunofixation; Continue diuresis/supportive care; Cardiology to see Shall continue to closely follow up. No indication for renal replacement; Labs AM Status: Acute Procedures Date of Service Date of Service: 01/08/21
--- NOTE | 2021-01-08 14:44 | P.PNIM_ITS ---
Subjective Subjective Date of Service: 01/08/21 Interval History: still with dyspnea though improved p transfusion has leg edema no chest pain no lightheadedness Physical Exam Vital Signs: Vital Signs: Last Vital Signs Temp 98.5 F 01/08/21 11:40 Pulse 92 01/08/21 11:40 Resp 20 01/08/21 11:40 BP 164/82 H 01/08/21 11:40 Pulse Ox 96 01/08/21 11:40 Oxygen Flow Rate 4 01/07/21 14:17 Body Mass Index 36.3 Gen: in no acute distress HEENT: sclera anicteric, moist mucus membranes Neck: supple Lungs: diminished bilaterally Heart: regular rate and rhythm, no murmurs Abd: soft, non-tender, non-distended Ext: 2+ pitting edema bilateral legs Skin: warm/well-perfused Neuro: alert and oriented x3, no focal findings Psych: appropriate affect Objective Data Current Medications Generic Name Dose Route Start Last Admin Trade Name Freq PRN Reason Stop Dose Admin Acetaminophen 650 mg 01/07/21 18:06 Acetaminophen 325 Mg Tablet PO Q6H PRN Pain, Mild (Pain Scale 1-3) Amlodipine Besylate 10 mg 01/08/21 09:00 01/08/21 08:55 Amlodipine Besylate 10 Mg Tablet PO 10 mg DAILY PALOMO Administration Protocol Atorvastatin Calcium 40 mg 01/08/21 21:00 Atorvastatin Calcium 40 Mg Tablet PO BEDTIME [facility] Cyanocobalamin 1,000 mcg 01/08/21 11:00 01/08/21 12:13 Cyanocobalamin (Vitamin B-12) 1,000 Mcg/Ml Vial IM 01/14/21 09:01 1,000 mcg DAILY PALOMO Administration Furosemide 40 mg 01/07/21 18:06 01/08/21 08:56 Furosemide 40 Mg/4 Ml Vial IVPUSH 40 mg BID@0900,1800 PALOMO Administration Protocol Gabapentin 300 mg 01/08/21 09:00 01/08/21 09:18 Gabapentin 300 Mg Capsule PO 300 mg DAILY PALOMO Administration Insulin Human Lispro 0 unit 01/07/21 18:06 01/08/21 11:39 Insulin Lispro 100 Unit/Ml 3 Ml Vial SUBCUT 2 unit QIDACHS PALOMO Administration Protocol Pantoprazole Sodium 40 mg 01/08/21 09:00 01/08/21 09:04 Pantoprazole Sodium 40 Mg/10 Ml Vial IVPUSH 40 mg BID@0630,1630 PALOMO Administration Sodium Chloride 3 ml 01/08/21 00:00 01/08/21 08:55 0.9 % Sodium Chloride Flush 3 Ml Syringe IVFLUSH 3 ml QSHIFT PALOMO Administration Labs CBC & Chem 7: 01/08/21 05:19 01/08/21 05:19 Assessment and Plan (1) Hypoxia: Status: Acute (2) Anemia: Status: Acute (3) Chronic renal insufficiency: Status: Acute (4) CKD (chronic kidney disease): Status: Acute Assessment and Plan: hospital d#2 with diastolic CHF, CKD4, HTN, DM2 presented with dyspnea admitted with hypoxia, anemia much of which is chronic though FOBT+, superimposed NAHID # acute/chronic diastolic HF - TTE, IV furosemide , monitor I/O [-830 mL so far] + BNP + Mg + BMP # acute hypoxic resp failure - wean O2 as tolerated # anemia, mostly chronic though FOBT+ - GI consult appreciated, t/c EGD + C-scope once more stable from cardiopulmonary perspective; in meanwhile, will give IV PPI empirically - transfused 1u PRBcs with appropriate increase in Hb - treat B12 deficiency # B12 deficiency anemia - send anti-IF and start parenteral replacement with 1000 mcg daily # NAHID/CKD4 # nephrotic syndrome - suspect cardiorenal + DM nephropathy, Nephrology consulted, will check YAMEL # hyperK - will give SPS and recheck BMp in am # ground glass infiltrate - suspect resolving PNA, no mass identified. COVID-19 ROBBIE; will check respiratory virus panel and also COVID-19 IgG # PVD - hold ASA for anemia, continue statin # HTN - amlodipine # DM2 - d/c MTF given renal insufficiency, continue correction-dose lispro # VTE ppx - SCDs, no heparinoids given FOBT+
[2021-01-08 16:03] LABS: Adenovirus PCR Not Detected (Not Detect.); Bordetella parapertussis PCR Not Detected (Not Detect.); Bordetella pertussis PCR Not Detected (Not Detect.); Chlamydia pneumoniae PCR Not Detected (Not Detect.); Coronavirus 229E PCR Not Detected (Not Detect.); Coronavirus HKU1 PCR Not Detected (Not Detect.); Coronavirus NL63 PCR Not Detected (Not Detect.); Coronavirus OC43 PCR Not Detected (Not Detect.); Human metapneumovirus PCR Not Detected (Not Detect.); Influenza A PCR Not Detected (Not Detect.); Influenza B PCR Not Detected (Not Detect.); Mycoplasma pneumoniae PCR Not Detected (Not Detect.); Parainfluenza 1 PCR Not Detected (Not Detect.); Parainfluenza 2 PCR Not Detected (Not Detect.); Parainfluenza 3 PCR Not Detected (Not Detect.); Parainfluenza 4 PCR Not Detected (Not Detect.); RSV PCR Not Detected (Not Detect.); Rhino/Enterovirus PCR Not Detected (Not Detect.); SARS-CoV-2 PCR Not Detected (Not Detect.)
[2021-01-08 16:12] LABS: Glucose, Whole Blood 140 mg/dL (60-115)
--- NOTE | 2021-01-08 16:18 | PC.NURSE ---
Pt BP at 1500 184/84. Pt assessed w/court interpreter, asymptomatic at this time. notified - added new order hydralizine TID - next dose scheduled for 2100 Will cont to monitor BP and pt presentation.
[2021-01-08 17:17] LABS: Glucose, Whole Blood 129 mg/dL (60-115)
[2021-01-08 20:50] LABS: Glucose, Whole Blood 166 mg/dL (60-115)
[2021-01-09] VITALS (18 sets, daily range): BP systolic 127–176; BP diastolic 71–84; PULSE 66–91; RESP 16–20; TEMP 36.3–37.2; O2SAT 94–96
[2021-01-09] MEDS: Pantoprazole Sodium 40 MG/10 ML VIAL IVPUSH ×2 (05:54→15:48)
[2021-01-09 07:03] LABS: Hematocrit 22.8 % (37-47); Hemoglobin 7.1 g/dl (12.0-16.0); Mean Corpuscular HGB Conc 31.1 g/dl (31.0-35.0); Mean Corpuscular Hemoglobin 27.6 pg (27.0-33.0); Mean Corpuscular Volume 88.7 fL (80-98); Mean Platelet Volume 11.1 fL (9.4-12.3); Platelet Count 328 X10*3/uL (160-400); Red Blood Count 2.57 X10*6/uL (4.20-5.50); Red Cell Distribution Width 15.6 % (11.0-16.0); White Blood Count 7.2 X10*3/uL (4.8-10.8)
[2021-01-09 07:31] LABS: Glucose, Whole Blood 115 mg/dL (60-115)
[2021-01-09 07:37] LABS: B Type Natriuretic Peptide 1676 pg/mL (<100)
[2021-01-09 07:39] LABS: Blood Urea Nitrogen 63 mg/dL (9-16); Calcium 8.7 mg/dL (8.4-10.2); Creatinine Clr Calc Pharmacy 14.4; Estimated Glomerular Filt Rate 14; Glucose Random 108 mg/dL (60-115); Magnesium 1.9 mg/dL (1.6-2.6)
[2021-01-09 08:04] LABS: Anion Gap 17 (12-20); Carbon Dioxide 23 mmol/L (22-29); Chloride 107 mmol/L (96-108); Sodium 143 mmol/L (135-145)
[2021-01-09 08:52] LABS: SARS COV2 IgG Negative (Negative)
[2021-01-09] MEDS: amLODIPine Besylate 10 MG TABLET PO (09:39)
[2021-01-09] MEDS: hydrALAZINE HCl 10 MG TABLET PO ×3 (09:40→21:18)
[2021-01-09] MEDS: Gabapentin 300 MG CAPSULE PO (09:40)
[2021-01-09] MEDS: Cyanocobalamin (Vitamin B-12) 1,000 MCG/ML VIAL 1000 MCG IM (09:40)
[2021-01-09] MEDS: 0.9 % Sodium Chloride Flush 3 ML SYRINGE IVFLUSH ×2 (09:41→15:48)
[2021-01-09] MEDS: Furosemide 40 MG/4 ML VIAL IVPUSH (09:41)
--- NOTE | 2021-01-09 10:04 | PM.CNCAR ---
History of Present Illness History of Present Illness Date of Service: 01/09/21 Requesting physician: Cheyenne Cano Consult reason: congestive heart failure Chief complaint: Anemia, CHF, Acute hypoxic respiratory failure Narrative: We are asked to see an eye in cardiology consultation today for symptoms of shortness of breath and congestive heart failure. History was obtained with help of transit mix operator. Despite an transit mix operator and daughter present at the bedside history obtained was limited. Patient says starting Friday when she woke up the family noted that she was short of breath. Difficult to obtain history regarding whether she was short of breath at rest. However she says her shortness of breath continue to remain significantly limiting and eventually she came to the hospital yesterday. Chest x-ray consistent with diffuse abnormalities along with elevated BNP. She was also noted to be markedly anemic on presentation. She received 1 unit of packed RBC. She was diuresed, however accumulated of output is -10 mL recorded in the chart. Not sure of this is accurate. However patient says that she is feeling better but not completely back to baseline. She denies any associated significant chest pressure. She denies any significant recent increase in her symptoms of shortness of breath. She is very limited at home in her activity level as per the daughter and walks with help of a walker with a shuffling gait. However she is able to manage her moving around the house and going to the bathroom by herself without significant shortness of breath or chest discomfort. As per the chart she has prior history of hypertension. Patient denies any prior history of congestive heart failure however this is listed in the chart. She also has history of chronic kidney disease. No prior history of myocardial infarction or significant cardiac arrhythmias. Review of Systems Constitutional: Constitutional: Reports no additional constitutional complaints Cardiovascular: Cardiovascular: Denies chest pain, Denies lightheadedness, Denies Loss of Consciousness, Denies palpitations, Reports dyspnea on exertion and Reports orthopnea Respiratory: Respiratory: Reports cough, Reports excessive phlegm production and Reports dyspnea on exertion Gastrointestinal: Gastrointestinal: Reports no additional gastrointestinal complaints Genitourinary: Genitourinary: Reports no additional female genitourinary complaints Musculoskeletal: Musculoskeletal: Reports no additional musculoskeletal complaints Neurologic: Reports system reviewed and no additional complaints, except as documented Psychiatric: Psychiatric: Reports no additional psychiatric complaints Endocrine: Endocrine: Reports no additional endocrine complaints and Denies palpitations Hematologic/Lymphatic: Hematologic/Lymphatic: Reports no additional hematologic/lymphatic complaints Allergic/Immunologic: Allergic/Immunologic: Reports no additional allergic/immunologic complaints [facility] Past Medical History Medical History CKD (chronic kidney disease) Diabetes Femoral artery stenosis High cholesterol Hypertension Lower extremity edema Psoriasis of scalp PVD (peripheral vascular disease) Family History Family History Father No problems noted. Mother No problems noted. Family history: reviewed and not pertinent Surgical History Surgical History History of female sterilization History of shoulder surgery Social History Social History Household Members: Children Household Members Other:: Daughter Housing: House Do you presently have visiting nurse or other home services: No Alcohol intake: never Smoking Status: Never smoker Use of substances other than those prescribed or required for medical reasons: No Currently Displaying Signs/Symptoms of Drug Intoxication Withdrawal: No Have you been hit, kicked, punched, or otherwise hurt by someone within the past year? If so, by whom?: No Do you feel safe in your current relationship?: No Is there a partner from a previous relationship who is making you feel unsafe now?: No Are you made to feel afraid or neglected: No Advance Directives: Yes Advance Directives Information Provided: Yes Advance Directives on File: No Advance Directives Date on File: 01/08/21 Do you have thoughts of harming others: None Do you have a plan to hurt others: No Plan Recently lost weight without trying: No Eating poorly because of decreased appetite: No Nutrition Risks: No Nutritional Risk Patient : No : No Poor oral hygiene: No service: No Current occupational status: retired and disabled Meds Allergies Allergy/AdvReac Type Severity Reaction Status Date / Time Iodinated Contrast Media Allergy Unknown UNKNOWN Verified 12/26/20 13:27 [IODINATED CONTRAST MEDIA] Active Medications: Current Medications Generic Name Dose Route Start Last Admin Trade Name Freq PRN Reason Stop Dose Admin Acetaminophen 650 mg 01/07/21 18:06 Acetaminophen 325 Mg Tablet PO Q6H PRN Pain, Mild (Pain Scale 1-3) Amlodipine Besylate 10 mg 01/08/21 09:00 01/09/21 09:39 Amlodipine Besylate 10 Mg Tablet PO 10 mg DAILY [facility] Administration Protocol Atorvastatin Calcium 40 mg 01/08/21 21:00 01/08/21 21:03 Atorvastatin Calcium 40 Mg Tablet PO Not Given BEDTIME [facility] Cyanocobalamin 1,000 mcg 01/08/21 11:00 01/09/21 09:40 Cyanocobalamin (Vitamin B-12) 1,000 Mcg/Ml Vial IM 01/14/21 09:01 1,000 mcg DAILY [facility] Administration Furosemide 40 mg 01/07/21 18:06 01/09/21 09:41 Furosemide 40 Mg/4 Ml Vial IVPUSH 40 mg BID@0900,1800 [facility] Administration Protocol Gabapentin 300 mg 01/08/21 09:00 01/09/21 09:40 Gabapentin 300 Mg Capsule PO 300 mg DAILY [facility] Administration Hydralazine HCl 10 mg 01/08/21 21:00 01/09/21 09:40 Hydralazine Hcl 10 Mg Tablet PO 10 mg TID [facility] Administration Protocol Insulin Human Lispro 0 unit 01/07/21 18:06 01/09/21 07:58 Insulin Lispro 100 Unit/Ml 3 Ml Vial SUBCUT Not Given QIDACHS [facility] Protocol Pantoprazole Sodium 40 mg 01/08/21 09:00 01/09/21 05:54 Pantoprazole Sodium 40 Mg/10 Ml Vial IVPUSH 40 mg BID@0630,1630 [facility] Administration Sodium Chloride 3 ml 01/08/21 00:00 01/09/21 09:41 0.9 % Sodium Chloride Flush 3 Ml Syringe IVFLUSH 3 ml QSHIFT [facility] Administration Home Medications Medication Instructions Recorded Confirmed Last Taken Type amlodipine 10 mg PO DAILY 01/07/21 01/07/21 Unknown History aspirin 81 mg PO DAILY 01/07/21 01/07/21 Unknown History atorvastatin 40 mg PO DAILY 01/07/21 01/07/21 Unknown History chlorthalidone 25 mg PO DAILY 01/07/21 01/07/21 Unknown History gabapentin 300 mg PO DAILY 01/07/21 01/07/21 Unknown History losartan 100 mg PO DAILY 01/07/21 01/07/21 Unknown History metformin 1,000 mg PO BID 01/07/21 01/07/21 Unknown History Physical Exam Vital Signs: Vital Signs: Last Vital Signs Temp 98.1 F 01/09/21 08:00 Pulse 82 01/09/21 08:00 Resp 20 01/09/21 08:00 BP 127/78 01/09/21 09:40 Pulse Ox 95 01/09/21 08:00 Oxygen Flow Rate 4 01/07/21 14:17 Body Mass Index 36.3 Const: General: cooperative, comfortable, alert, awake and acute distress moderate and respiratory Nutritional Appearance: obese Orientation/consciousness: patient oriented x3 HENMT: Head: Yes normocephalic and Yes atraumatic Neck: Neck: Yes trachea midline, Yes supple and Yes JVD (No clear JVD appreciated could be due to the anatomy) Resp: Effort & Inspection: normal respiratory effort Auscultation: crackles and breath sounds absent bilateral Cardio: Palpation: normal PMI Rate: regular rate Heart sounds: S1 normal heart sound present and S2 normal heart sound present GI: Auscultation: normal bowel sounds Skin: General skin exam: no rashes or lesions noted Neuro: General: patient oriented x3 and no focal motor deficits Extrem: General: Yes no clubbing, cyanosis or edema Psych: Appearance: grossly normal Results Labs and Meds Result diagrams: 01/09/21 06:22 01/09/21 06:23 Lab results: Laboratory Results - last 24 hr 01/07/21 01/08/21 01/08/21 14:34 10:58 15:20 WBC RBC Hgb Hct MCV MCH MCHC RDW Plt Count MPV Absolute Nucleated RBC Nucleated RBC % (auto) Smear Path Review SEE NOTE Sodium Potassium Chloride Carbon Dioxide Anion Gap BUN Creatinine Estim Creat Clear Calc Estimated GFR POC Glucose 158 H Random Glucose Calcium Magnesium B-Natriuretic Peptide Respiratory Panel [place] See Note Adenovirus (Rapid PCR) Not Detected B.pert (TEM-PCR) Not Detected B.parapertussis DNA PCR Not Detected C. pneumoniae DNA (PCR) Not Detected Coronavirus OC43 (PCR) Not Detected Coronavirus HKU1 (PCR) Not Detected Coronavirus 229E (PCR) Not Detected Coronavirus NL63 (PCR) Not Detected Human Metapneumovir PCR Not Detected Influenza A (RT-PCR) Not Detected Influenza B (RT-PCR) Not Detected M. pneumoniae (PCR) Not Detected Parainfluenza 1 (PCR) Not Detected Parainfluenza 2 (PCR) Not Detected Parainfluenza 3 (PCR) Not Detected Parainfluenza 4 (PCR) Not Detected RSV (PCR) Not Detected Entero/Rhino (PCR) Not Detected SARS-CoV-2 RNA (RT-PCR) Not Detected SARS-CoV-2 IgG Ab 01/08/21 01/08/21 01/08/21 15:46 17:12 20:44 WBC RBC Hgb Hct MCV MCH MCHC RDW Plt Count MPV Absolute Nucleated RBC Nucleated RBC % (auto) Smear Path Review Sodium Potassium Chloride Carbon Dioxide Anion Gap BUN Creatinine Estim Creat Clear Calc Estimated GFR POC Glucose 140 H 129 H 166 H Random Glucose Calcium Magnesium B-Natriuretic Peptide Respiratory Panel [place] Adenovirus (Rapid PCR) B.pert (TEM-PCR) B.parapertussis DNA PCR C. pneumoniae DNA (PCR) Coronavirus OC43 (PCR) Coronavirus HKU1 (PCR) Coronavirus 229E (PCR) Coronavirus NL63 (PCR) Human Metapneumovir PCR Influenza A (RT-PCR) Influenza B (RT-PCR) M. pneumoniae (PCR) Parainfluenza 1 (PCR) Parainfluenza 2 (PCR) Parainfluenza 3 (PCR) Parainfluenza 4 (PCR) RSV (PCR) Entero/Rhino (PCR) SARS-CoV-2 RNA (RT-PCR) SARS-CoV-2 IgG Ab 01/09/21 01/09/21 01/09/21 06:22 06:22 06:23 WBC 7.2 RBC 2.57 L Hgb 7.1 L Hct 22.8 L MCV 88.7 MCH 27.6 MCHC 31.1 RDW 15.6 Plt Count 328 MPV 11.1 Absolute Nucleated RBC 0.000 Nucleated RBC % (auto) 0.0 Smear Path Review Sodium 143 Potassium 4.0 D Chloride 107 Carbon Dioxide 23 Anion Gap 17 BUN 63 H Creatinine 3.25 H Estim Creat Clear Calc 14.4 Estimated GFR 14 POC Glucose Random Glucose 108 Calcium 8.7 Magnesium 1.9 B-Natriuretic Peptide 1676 H Respiratory Panel [place] Adenovirus (Rapid PCR) B.pert (TEM-PCR) B.parapertussis DNA PCR C. pneumoniae DNA (PCR) Coronavirus OC43 (PCR) Coronavirus HKU1 (PCR) Coronavirus 229E (PCR) Coronavirus NL63 (PCR) Human Metapneumovir PCR Influenza A (RT-PCR) Influenza B (RT-PCR) M. pneumoniae (PCR) Parainfluenza 1 (PCR) Parainfluenza 2 (PCR) Parainfluenza 3 (PCR) Parainfluenza 4 (PCR) RSV (PCR) Entero/Rhino (PCR) SARS-CoV-2 RNA (RT-PCR) SARS-CoV-2 IgG Ab 01/09/21 01/09/21 07:25 07:39 WBC RBC Hgb Hct MCV MCH MCHC RDW Plt Count MPV Absolute Nucleated RBC Nucleated RBC % (auto) Smear Path Review Sodium Potassium Chloride Carbon Dioxide Anion Gap BUN Creatinine Estim Creat Clear Calc Estimated GFR POC Glucose 115 Random Glucose Calcium Magnesium B-Natriuretic Peptide Respiratory Panel [place] Adenovirus (Rapid PCR) B.pert (TEM-PCR) B.parapertussis DNA PCR C. pneumoniae DNA (PCR) Coronavirus OC43 (PCR) Coronavirus HKU1 (PCR) Coronavirus 229E (PCR) Coronavirus NL63 (PCR) Human Metapneumovir PCR Influenza A (RT-PCR) Influenza B (RT-PCR) M. pneumoniae (PCR) Parainfluenza 1 (PCR) Parainfluenza 2 (PCR) Parainfluenza 3 (PCR) Parainfluenza 4 (PCR) RSV (PCR) Entero/Rhino (PCR) SARS-CoV-2 RNA (RT-PCR) SARS-CoV-2 IgG Ab Negative EKG shows normal sinus rhythm with normal EKG Assessment and Plan (1) Acute respiratory failure with hypoxia: Status: Acute Acute respiratory failure with hypoxia most likely secondary to congestive heart failure. Bilateral pleural effusion probably contributing to reduced lung expansion as well. See below for management (2) Congestive heart failure: Status: Acute New onset congestive heart failure, as per the patient and the daughter the not have any prior history of congestive heart failure. This is most likely precipitated by her severe anemia. A continue to diurese her. Her intake and output chart do not suggest good diuretic response as yet. Would consider switching her to Lasix drip at 5 mg an hour and up titrate to maintain a good urine output with negative balance of about 2 L per day. Obtain an echocardiogram to assess LV systolic and diastolic function to evaluate for pulmonary hypertension. Most likely cause of her heart failure is diastolic dysfunction related to hypertensive heart disease and chronic kidney disease. Overall prognosis is limited at this point time suggest a GI consult for her severe anemia to evaluate for the cause of her severe anemia. Transfuse as needed. Hold off on aspirin therapy. Continue antihypertensive regimen, currently blood pressure is well optimized. Hold off on Aldactone therapy due to her advanced renal dysfunction. Will follow with the patient. Thank you for allowing us to partake in the care Procedures Date of Service Date of Service: 01/09/21
[2021-01-09 11:12] LABS: Glucose, Whole Blood 159 mg/dL (60-115)
[2021-01-09] MEDS: Insulin Lispro 100 UNIT/ML 3 ML VIAL SUBCUT ×2 (11:36→21:09)
[2021-01-09] MEDS: Furosemide 200 MG in 0.9 % Sodium Chloride 80 ML IVCONT (12:48)
--- NOTE | 2021-01-09 16:03 | HO.PM.IMPN ---
Subjective Subjective Date of Service: 01/09/21 Interval History: Dyspnea slightly improved. No chest pain. Physical Exam Vital Signs: Vital Signs: Last Vital Signs Temp 98.6 F 01/09/21 15:29 Pulse 77 01/09/21 15:29 Resp 18 01/09/21 15:29 BP 152/84 H 01/09/21 15:43 Pulse Ox 94 01/09/21 15:55 Oxygen Flow Rate 4 01/07/21 14:17 Body Mass Index 36.3 Gen: in no acute distress HEENT: sclera anicteric, moist mucus membranes Neck: supple Lungs: diminished bilaterally Heart: regular rate and rhythm, no murmurs Abd: soft, non-tender, non-distended Ext: trace edema bilateral legs Skin: warm/well-perfused Neuro: alert and oriented x3, no focal findings Psych: appropriate affect Objective Data Current Medications Generic Name Dose Route Start Last Admin Trade Name Freq PRN Reason Stop Dose Admin Acetaminophen 650 mg 01/07/21 18:06 Acetaminophen 325 Mg Tablet PO Q6H PRN Pain, Mild (Pain Scale 1-3) Amlodipine Besylate 10 mg 01/08/21 09:00 01/09/21 09:39 Amlodipine Besylate 10 Mg Tablet PO 10 mg DAILY [facility] Administration Protocol Atorvastatin Calcium 40 mg 01/08/21 21:00 01/08/21 21:03 Atorvastatin Calcium 40 Mg Tablet PO Not Given BEDTIME [facility] Cyanocobalamin 1,000 mcg 01/08/21 11:00 01/09/21 09:40 Cyanocobalamin (Vitamin B-12) 1,000 Mcg/Ml Vial IM 01/14/21 09:01 1,000 mcg DAILY [facility] Administration Gabapentin 300 mg 01/08/21 09:00 01/09/21 09:40 Gabapentin 300 Mg Capsule PO 300 mg DAILY [facility] Administration Hydralazine HCl 10 mg 01/08/21 21:00 01/09/21 15:43 Hydralazine Hcl 10 Mg Tablet PO 10 mg TID [facility] Administration Protocol Furosemide 200 mg/ Sodium 100 mls @ 2.5 mls/hr 01/09/21 12:00 01/09/21 12:48 Chloride IVCONT 5 mg/hr .Q24H [facility] 2.5 mls/hr Administration 5 MG/HR Insulin Human Lispro 0 unit 01/07/21 18:06 01/09/21 11:36 Insulin Lispro 100 Unit/Ml 3 Ml Vial SUBCUT 2 unit QIDACHS [facility] Administration Protocol Pantoprazole Sodium 40 mg 01/08/21 09:00 01/09/21 15:48 Pantoprazole Sodium 40 Mg/10 Ml Vial IVPUSH 40 mg BID@0630,1630 [facility] Administration Sodium Chloride 3 ml 01/08/21 00:00 01/09/21 15:48 0.9 % Sodium Chloride Flush 3 Ml Syringe IVFLUSH 3 ml QSHIFT [facility] Administration Labs CBC & Chem 7: 01/09/21 06:22 01/09/21 06:23 Labs: Laboratory Results - last 24 hr 01/07/21 01/08/21 01/08/21 16:15 15:20 15:46 WBC RBC Hgb Hct MCV MCH MCHC RDW Plt Count MPV Absolute Nucleated RBC Nucleated RBC % (auto) Sodium Potassium Chloride Carbon Dioxide Anion Gap BUN Creatinine Estim Creat Clear Calc Estimated GFR POC Glucose 140 H Random Glucose Calcium Magnesium B-Natriuretic Peptide Respiratory Panel [place] See Note Adenovirus (Rapid PCR) Not Detected B.pert (TEM-PCR) Not Detected B.parapertussis DNA PCR Not Detected C. pneumoniae DNA (PCR) Not Detected Coronavirus OC43 (PCR) Not Detected Coronavirus HKU1 (PCR) Not Detected Coronavirus 229E (PCR) Not Detected Coronavirus NL63 (PCR) Not Detected Human Metapneumovir PCR Not Detected Influenza A (RT-PCR) Not Detected Influenza B (RT-PCR) Not Detected M. pneumoniae (PCR) Not Detected Parainfluenza 1 (PCR) Not Detected Parainfluenza 2 (PCR) Not Detected Parainfluenza 3 (PCR) Not Detected Parainfluenza 4 (PCR) Not Detected RSV (PCR) Not Detected Entero/Rhino (PCR) Not Detected SARS-CoV-2 RNA (RT-PCR) Not Detected SARS-CoV-2 IgG Ab Blood Type A Positive Antibody Screen NEGATIVE Crossmatch See Detail 01/08/21 01/08/21 01/09/21 17:12 20:44 06:22 WBC 7.2 RBC 2.57 L Hgb 7.1 L Hct 22.8 L MCV 88.7 MCH 27.6 MCHC 31.1 RDW 15.6 Plt Count 328 MPV 11.1 Absolute Nucleated RBC 0.000 Nucleated RBC % (auto) 0.0 Sodium Potassium Chloride Carbon Dioxide Anion Gap BUN Creatinine Estim Creat Clear Calc Estimated GFR POC Glucose 129 H 166 H Random Glucose Calcium Magnesium B-Natriuretic Peptide Respiratory Panel [place] Adenovirus (Rapid PCR) B.pert (TEM-PCR) B.parapertussis DNA PCR C. pneumoniae DNA (PCR) Coronavirus OC43 (PCR) Coronavirus HKU1 (PCR) Coronavirus 229E (PCR) Coronavirus NL63 (PCR) Human Metapneumovir PCR Influenza A (RT-PCR) Influenza B (RT-PCR) M. pneumoniae (PCR) Parainfluenza 1 (PCR) Parainfluenza 2 (PCR) Parainfluenza 3 (PCR) Parainfluenza 4 (PCR) RSV (PCR) Entero/Rhino (PCR) SARS-CoV-2 RNA (RT-PCR) SARS-CoV-2 IgG Ab Blood Type Antibody Screen Crossmatch 01/09/21 01/09/21 01/09/21 06:22 06:23 07:25 WBC RBC Hgb Hct MCV MCH MCHC RDW Plt Count MPV Absolute Nucleated RBC Nucleated RBC % (auto) Sodium 143 Potassium 4.0 D Chloride 107 Carbon Dioxide 23 Anion Gap 17 BUN 63 H Creatinine 3.25 H Estim Creat Clear Calc 14.4 Estimated GFR 14 POC Glucose 115 Random Glucose 108 Calcium 8.7 Magnesium 1.9 B-Natriuretic Peptide 1676 H Respiratory Panel [place] Adenovirus (Rapid PCR) B.pert (TEM-PCR) B.parapertussis DNA PCR C. pneumoniae DNA (PCR) Coronavirus OC43 (PCR) Coronavirus HKU1 (PCR) Coronavirus 229E (PCR) Coronavirus NL63 (PCR) Human Metapneumovir PCR Influenza A (RT-PCR) Influenza B (RT-PCR) M. pneumoniae (PCR) Parainfluenza 1 (PCR) Parainfluenza 2 (PCR) Parainfluenza 3 (PCR) Parainfluenza 4 (PCR) RSV (PCR) Entero/Rhino (PCR) SARS-CoV-2 RNA (RT-PCR) SARS-CoV-2 IgG Ab Blood Type Antibody Screen Crossmatch 01/09/21 01/09/21 07:39 11:08 WBC RBC Hgb Hct MCV MCH MCHC RDW Plt Count MPV Absolute Nucleated RBC Nucleated RBC % (auto) Sodium Potassium Chloride Carbon Dioxide Anion Gap BUN Creatinine Estim Creat Clear Calc Estimated GFR POC Glucose 159 H Random Glucose Calcium Magnesium B-Natriuretic Peptide Respiratory Panel [place] Adenovirus (Rapid PCR) B.pert (TEM-PCR) B.parapertussis DNA PCR C. pneumoniae DNA (PCR) Coronavirus OC43 (PCR) Coronavirus HKU1 (PCR) Coronavirus 229E (PCR) Coronavirus NL63 (PCR) Human Metapneumovir PCR Influenza A (RT-PCR) Influenza B (RT-PCR) M. pneumoniae (PCR) Parainfluenza 1 (PCR) Parainfluenza 2 (PCR) Parainfluenza 3 (PCR) Parainfluenza 4 (PCR) RSV (PCR) Entero/Rhino (PCR) SARS-CoV-2 RNA (RT-PCR) SARS-CoV-2 IgG Ab Negative Blood Type Antibody Screen Crossmatch TTE 01/09/21 1. Low normal LV systolic function with mild LVH with impaired relaxation filling pattern and elevated filling pressures 2. Mildly dilated left atrium 3. Mild mitral regurgitation 4. [id number] RV systolic pressure 5. No pericardial effusion Microbiology Microbiology Results: Microbiology 01/07/21 16:14 Blood - Venous Blood Culture - Preliminary No growth after 24 hours. 01/07/21 14:35 Blood - Venous Blood Culture - Preliminary No growth after 24 hours. Assessment and Plan (1) Hypoxia: Status: Acute (2) Anemia: Status: Acute (3) Chronic renal insufficiency: Status: Acute (4) CKD (chronic kidney disease): Status: Acute Assessment and Plan: hospital d#3 with diastolic CHF, CKD4, HTN, DM2 presented with dyspnea admitted with hypoxia, anemia much of which is chronic though FOBT+ and also found to have profound B12 deficiency; superimposed NAHID # acute/chronic HFpEF - IV furosemide- change to drip per Cardiology given inadequate response so far; monitor I/O + BNP/Mg/BMP # acute hypoxic resp failure - wean O2 as tolerated # anemia, mostly chronic though FOBT+ - GI consult appreciated, t/c EGD + C-scope once more stable from cardiopulmonary perspective; in meanwhile, will give IV PPI empirically - transfused 1u PRBcs with appropriate increase in Hb 01/07; will give another 2u today with caution for fluid overload # B12 deficiency anemia - sent anti-IF and started parenteral replacement with 1000 mcg daily 01/08- # NAHID/CKD4 # nephrotic syndrome - suspect cardiorenal + DM nephropathy, Nephrology consulted, will check YAMEL; monitor renal function # hyperK - resolved # ground glass infiltrate - suspect resolving PNA/edema, no mass identified, COVID-19 negative by ROBBIE and PCR # PVD - hold ASA for anemia, continue statin # HTN - amlodipine # DM2 - d/c'ed MTF given renal insufficiency and B12 deficiency, continue correction-dose lispro # VTE ppx - SCDs, no heparinoids given FOBT+
[2021-01-09 16:18] LABS: Glucose, Whole Blood 139 mg/dL (60-115)
--- NOTE | 2021-01-09 17:32 | PM.PNNEP ---
Subjective Subjective Date of Service: 01/09/21 Interval history: Dyspnea slightly improved. No chest pain. Physical Exam Vital Signs: Vital Signs: Last Vital Signs Temp 98.9 F 01/09/21 17:26 Pulse 75 01/09/21 17:26 Resp 16 01/09/21 17:26 BP 148/76 H 01/09/21 17:26 Pulse Ox 94 01/09/21 15:55 Oxygen Flow Rate 4 01/07/21 14:17 Body Mass Index 36.3 Const: General: no acute distress Orientation/consciousness: patient oriented x3 Neck: Neck: Yes JVD Resp: Auscultation: diminished lung sounds Cardio: Rate: regular rate GI: Palpation (GI): Soft to palpation Neuro: General: patient oriented x3 and moves all extremities Objective Data Labs CBC & Chem 7: 01/09/21 06:22 01/09/21 06:23 Labs: Laboratory Results - last 24 hr 01/07/21 01/08/21 01/08/21 16:15 15:20 20:44 WBC RBC Hgb Hct MCV MCH MCHC RDW Plt Count MPV Absolute Nucleated RBC Nucleated RBC % (auto) Sodium Potassium Chloride Carbon Dioxide Anion Gap BUN Creatinine Estim Creat Clear Calc Estimated GFR POC Glucose 166 H Random Glucose Calcium Magnesium B-Natriuretic Peptide Respiratory Panel [place] See Note Adenovirus (Rapid PCR) Not Detected B.pert (TEM-PCR) Not Detected B.parapertussis DNA PCR Not Detected C. pneumoniae DNA (PCR) Not Detected Coronavirus OC43 (PCR) Not Detected Coronavirus HKU1 (PCR) Not Detected Coronavirus 229E (PCR) Not Detected Coronavirus NL63 (PCR) Not Detected Human Metapneumovir PCR Not Detected Influenza A (RT-PCR) Not Detected Influenza B (RT-PCR) Not Detected M. pneumoniae (PCR) Not Detected Parainfluenza 1 (PCR) Not Detected Parainfluenza 2 (PCR) Not Detected Parainfluenza 3 (PCR) Not Detected Parainfluenza 4 (PCR) Not Detected RSV (PCR) Not Detected Entero/Rhino (PCR) Not Detected SARS-CoV-2 RNA (RT-PCR) Not Detected SARS-CoV-2 IgG Ab Blood Type A Positive Antibody Screen NEGATIVE Crossmatch See Detail 01/09/21 01/09/21 01/09/21 06:22 06:22 06:23 WBC 7.2 RBC 2.57 L Hgb 7.1 L Hct 22.8 L MCV 88.7 MCH 27.6 MCHC 31.1 RDW 15.6 Plt Count 328 MPV 11.1 Absolute Nucleated RBC 0.000 Nucleated RBC % (auto) 0.0 Sodium 143 Potassium 4.0 D Chloride 107 Carbon Dioxide 23 Anion Gap 17 BUN 63 H Creatinine 3.25 H Estim Creat Clear Calc 14.4 Estimated GFR 14 POC Glucose Random Glucose 108 Calcium 8.7 Magnesium 1.9 B-Natriuretic Peptide 1676 H Respiratory Panel [place] Adenovirus (Rapid PCR) B.pert (TEM-PCR) B.parapertussis DNA PCR C. pneumoniae DNA (PCR) Coronavirus OC43 (PCR) Coronavirus HKU1 (PCR) Coronavirus 229E (PCR) Coronavirus NL63 (PCR) Human Metapneumovir PCR Influenza A (RT-PCR) Influenza B (RT-PCR) M. pneumoniae (PCR) Parainfluenza 1 (PCR) Parainfluenza 2 (PCR) Parainfluenza 3 (PCR) Parainfluenza 4 (PCR) RSV (PCR) Entero/Rhino (PCR) SARS-CoV-2 RNA (RT-PCR) SARS-CoV-2 IgG Ab Blood Type Antibody Screen Crossmatch 01/09/21 01/09/21 01/09/21 07:25 07:39 11:08 WBC RBC Hgb Hct MCV MCH MCHC RDW Plt Count MPV Absolute Nucleated RBC Nucleated RBC % (auto) Sodium Potassium Chloride Carbon Dioxide Anion Gap BUN Creatinine Estim Creat Clear Calc Estimated GFR POC Glucose 115 159 H Random Glucose Calcium Magnesium B-Natriuretic Peptide Respiratory Panel [place] Adenovirus (Rapid PCR) B.pert (TEM-PCR) B.parapertussis DNA PCR C. pneumoniae DNA (PCR) Coronavirus OC43 (PCR) Coronavirus HKU1 (PCR) Coronavirus 229E (PCR) Coronavirus NL63 (PCR) Human Metapneumovir PCR Influenza A (RT-PCR) Influenza B (RT-PCR) M. pneumoniae (PCR) Parainfluenza 1 (PCR) Parainfluenza 2 (PCR) Parainfluenza 3 (PCR) Parainfluenza 4 (PCR) RSV (PCR) Entero/Rhino (PCR) SARS-CoV-2 RNA (RT-PCR) SARS-CoV-2 IgG Ab Negative Blood Type Antibody Screen Crossmatch 01/09/21 16:06 WBC RBC Hgb Hct MCV MCH MCHC RDW Plt Count MPV Absolute Nucleated RBC Nucleated RBC % (auto) Sodium Potassium Chloride Carbon Dioxide Anion Gap BUN Creatinine Estim Creat Clear Calc Estimated GFR POC Glucose 139 H Random Glucose Calcium Magnesium B-Natriuretic Peptide Respiratory Panel [place] Adenovirus (Rapid PCR) B.pert (TEM-PCR) B.parapertussis DNA PCR C. pneumoniae DNA (PCR) Coronavirus OC43 (PCR) Coronavirus HKU1 (PCR) Coronavirus 229E (PCR) Coronavirus NL63 (PCR) Human Metapneumovir PCR Influenza A (RT-PCR) Influenza B (RT-PCR) M. pneumoniae (PCR) Parainfluenza 1 (PCR) Parainfluenza 2 (PCR) Parainfluenza 3 (PCR) Parainfluenza 4 (PCR) RSV (PCR) Entero/Rhino (PCR) SARS-CoV-2 RNA (RT-PCR) SARS-CoV-2 IgG Ab Blood Type Antibody Screen Crossmatch Microbiology Microbiology Results: Microbiology 01/07/21 14:35 Blood - Venous Blood Culture - Preliminary No growth after 48 hours. 01/07/21 16:14 Blood - Venous Blood Culture - Preliminary No growth after 24 hours. Assessment & Plan Assessment and plan (1) CKD (chronic kidney disease): Problem details: NAHID due to Acute on chronic diastolic CHF and symptomatic anemia with Cardio renal syndrome Continue diuresis/supportive care; No indication for renal replacement; Shall continue to closely follow up. Labs AM Status: Acute Time Spent With Patient Time: Total time spent is greater than 50% in coordination of care (as documented) at patient's floor/unit and/or counseling patient: Procedures Date of Service Date of Service: 01/09/21
--- NOTE | 2021-01-09 17:46 | PC.NURSE ---
Rn to room to assess pt in afternoon and talk about hanging another bag of blood. A 2 assist repo at this time. Whilst in room pt was reporting that she felt crooked Informed pt and daughter it is likely from the pillow we had under her right side to prevent any skin breakdown which she is higher risk for as pt doesnt move much on her own and has been in bed ~2 days along with incontinence. Air mattress had already been applied along with purewick in place to help keep skin dry, along with freq repoing pt these last two days. PT skin on coccyx is pink but blanchable Pt and daughter requesting we remove pillow as its not comfortable. 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 Tried to lower pt HOB to see if that helped while laying on side, pt still uncomfortable & wanted pillow removed. Pt and daughter aware of skin breakdown risk and pt wants to remain supine at this time. Will continue to encourage repo minimum q2hr.
--- NOTE | 2021-01-09 18:06 | CA_ITS ---
Transthoracic Echocardiogram Patient (Last, First, Middle): Kay Cuadra, H Gender: Female Date of : 1940 Age: 80 Procedure Date: 01/09/2021 Procedure Type: Transthoracic Echocardiogram Location: [facility] Height: 157.48 cm Weight: 89.81 kg BSA: 1.90 m2 Heart Rate: bpm BP: 146 / 76 mmHg Project Manager Interior Design: Referring MD: Xavier Chaparro MD Abstract Checker: Noé Deal MD Symptoms: chf Study Quality: Good ECG Rhythm: Sinus Conclusions: - 1. Low normal LV systolic function with mild LVH with impaired relaxation filling pattern and elevated filling pressures 2. Mildly dilated left atrium 3. Mild mitral regurgitation 4. [id number]-[id number] RV systolic pressure 5. No pericardial effusion Findings Left Ventricle Normal left ventricular size and systolic function. There is mildly increased left ventricular wall thickness. The visually estimated ejection fraction is between 50-55%. Spectral Doppler is indicative of an impaired relaxation filling pattern. Elevated filling pressures. E/E prime ratio is >15, consistent with elevated filling pressures. Right Ventricle Normal right ventricular cavity size and systolic function. Atria The left atrium is mildly dilated. There is lipomatous hypertrophy of the interatrial septum. There is no evidence of interatrial shunt. The right atrium is likely dilated. Aortic Valve Normal aortic valve structure and function. There is no aortic valve stenosis. There is no aortic valve regurgitation. Mitral Valve There is mild anterior and posterior mitral leaflet thickening. There is mild mitral annular calcification. There is mild mitral valve regurgitation. There is no mitral valve stenosis. Pulmonic Valve The pulmonic valve was not well visualized. Tricuspid Valve Likely normal tricuspid valve structure and function. There is mild tricuspid valve regurgitation. Mild to moderate pulmonary hypertension is present. Great Vessels All visible segments of the aorta are normal in size. The pulmonary artery was not well visualized. Venous The inferior vena cava is normal in size and collapses greater than 50% with inspiration. Pericardium/Pleural There is no evidence of pericardial effusion. Prior Study Comparison Changes noted compared to prior study dated: 10/11/2019. LV systolic function moderately reduced with elevated RV systolic pressure Measurements 2D Linear Measurements IVSd: 1.26 0.6-0.9/0.6-1.0 cm LVIDd: 5.51 3.9-5.3/4.2-5.9 cm LVIDd Index: 2.90 2.4-3.2/2.2-3.1 cm/m2 LVIDs: 4.13 2.0-3.6 cm LVPWd: 1.24 0.7-1.1 cm Ao Root: 3.00 2.1-3.5 cm LA Diam: 4.10 2.7-3.8/3.0-4.0 cm LAIDs Index: 2.16 1.5-2.3 cm/m2 LV Mass: 360.50 67-162/88-224 g LV Mass Index: 189.74 43-95/49-115 g/m2 LVOT Diam: 2.00 3.0+(-)1.3 cm 2D Systolic Function EF 4C: 65.30 >55% EF 2C: 44.00 >55% EF BiP: 54.50 >55% Mitral Valve MV Pk E: 1.06 MV PK A: 1.24 MV Decel Time: 180.00 E/A: 0.90 E'Lateral: 4.35 E'Medial: 3.87 E/E' Med: 27.40 E/E' Lat: 24.40 PHT: 53.00 MVA PHT: 4.15 Decel [place]: 5.89 Aortic Valve AoV Pk [place]: 1.66 AoV Mn [place]: 0.91 AoV VTI: 0.35 AoV Pk Grad: 11.00 Aov Mn Grad: 4.00 OSWALDO Cont.VTI: 1.92 LVOT LVOT Pk [place]: 0.90 LVOT Mn [place]: 0.61 LVOT VTI: 0.21 LVOT Pk Grad: 3.00 LVOT Mn Grad: 2.00 LVOT Diam: 2.00 LVOT Area: 3.14 Diastolic Function MV Pk E: 1.06 MV Pk A: 1.24 E/A: 0.90 E'Medial: 3.87 E/E' Med: 27.40 E' Laterial: 4.35 E/E' Lat: 24.40 Tricuspid Valve TR Pk [place]: 3.25 TR Pk Grad: 42.00 RA Press: 3.00 RVSP: 45.00 Great Vessels Aorta Ao Root-2D: 3.00 2.0-3.7 cm Pulmonary Valve PV Pk [place]: 1.19 Peak PV Grad: 6.00 Updated in Other Vendor System with Status of Final Noé Deal MD electronically signed on 01/09/2021 12:30:45 PM with status of Final
[2021-01-09 20:04] LABS: Glucose, Whole Blood 223 mg/dL (60-115)
[2021-01-09] MEDS: Atorvastatin Calcium 40 MG TABLET PO (21:10)
[2021-01-09] MEDS: Acetaminophen 325 MG TABLET 650 MG PO (21:33)
[2021-01-10] VITALS (14 sets, daily range): BP systolic 146–176; BP diastolic 72–84; PULSE 76–96; RESP 16–21; TEMP 36.1–37.7; O2SAT 93–100
[2021-01-10] MEDS: Pantoprazole Sodium 40 MG/10 ML VIAL IVPUSH ×2 (06:35→16:39)
[2021-01-10 07:17] LABS: Glucose, Whole Blood 140 mg/dL (60-115)
[2021-01-10 07:56] LABS: Anion Gap 16 (12-20); Blood Urea Nitrogen 62 mg/dL (9-16); Calcium 8.2 mg/dL (8.4-10.2); Carbon Dioxide 24 mmol/L (22-29); Chloride 104 mmol/L (96-108); Creatinine Clr Calc Pharmacy 15.1; Estimated Glomerular Filt Rate 15; Glucose Random 129 mg/dL (60-115); Magnesium 1.8 mg/dL (1.6-2.6); Potassium 3.5 mmol/L (3.3-5.1); Sodium 140 mmol/L (135-145)
[2021-01-10 09:39] LABS: B Type Natriuretic Peptide 1282 pg/mL (<100)
[2021-01-10] MEDS: Cyanocobalamin (Vitamin B-12) 1,000 MCG/ML VIAL 1000 MCG IM (09:55)
[2021-01-10] MEDS: Gabapentin 300 MG CAPSULE PO (09:57)
[2021-01-10] MEDS: hydrALAZINE HCl 10 MG TABLET PO (09:57)
[2021-01-10] MEDS: amLODIPine Besylate 10 MG TABLET PO (09:58)
[2021-01-10] MEDS: 0.9 % Sodium Chloride Flush 3 ML SYRINGE IVFLUSH ×2 (10:00→20:04)
[2021-01-10] MEDS: Acetaminophen 325 MG TABLET 650 MG PO ×2 (10:26→20:01)
[2021-01-10 11:41] LABS: Glucose, Whole Blood 223 mg/dL (60-115)
--- NOTE | 2021-01-10 11:41 | MHC.CM.PN ---
Per ROUNDS discussion, anticipate dc for Friday, 01/13. PT is recommending STR; family may prefer continuing to care for Patient at home in their Adult Foster Care setting with [facility].CM will follow for dc planning.
[2021-01-10] MEDS: Insulin Lispro 100 UNIT/ML 3 ML VIAL SUBCUT ×2 (11:55→20:00)
[2021-01-10] MEDS: Furosemide 200 MG in 0.9 % Sodium Chloride 80 ML IVCONT (12:51)
--- NOTE | 2021-01-10 12:59 | PM.PNCARD ---
Subjective Subjective Date of Service: 01/10/21 Principal diagnosis: CHF, anemia. Interval history: Patient continues to remain significantly anemic. Says she is still short of breath but improved than before. Complains of weakness. No lightheadedness, syncope. No chest discomfort. BNP down trending to 1282. Up to 1700 cc. Review of Systems Constitutional: Reports no additional constitutional complaints Cardiovascular: Denies chest pain, Denies rapid heart rate, Denies palpitations and Reports dyspnea Respiratory: Reports chest congestion and Reports dyspnea Gastrointestinal: Reports no additional gastrointestinal complaints Genitourinary: Reports no additional female genitourinary complaints Reports system reviewed and no additional complaints, except as documented Endocrine: Reports no additional endocrine complaints and Denies palpitations Physical Exam Vital Signs: Last Vital Signs Temp 97.9 F 01/10/21 11:26 Pulse 87 01/10/21 11:27 Resp 20 01/10/21 11:26 BP 175/75 H 01/10/21 11:27 Pulse Ox 95 01/10/21 11:27 Oxygen Flow Rate 4 01/07/21 14:17 Body Mass Index 36.3 Const General: cooperative, comfortable and acute distress mild and respiratory Nutritional Appearance: obese Orientation/consciousness: patient oriented x3 Neck Neck: Yes trachea midline, Yes supple and Yes no JVD Resp Effort & Inspection: normal respiratory effort Auscultation: no rales and diminished lung sounds Cardio Palpation: normal PMI Rate: regular rate Rhythm: regular rhythm Heart sounds: S1 normal heart sound present and S2 normal heart sound present GI Auscultation: normal bowel sounds Skin General skin exam: no rashes or lesions noted Neuro General: patient oriented x3 Results Labs and Meds Result diagrams: 01/09/21 06:22 01/10/21 06:05 Lab results: Laboratory Results - last 24 hr 01/07/21 01/09/21 01/09/21 16:15 16:06 19:57 Sodium Potassium Chloride Carbon Dioxide Anion Gap BUN Creatinine Estim Creat Clear Calc Estimated GFR POC Glucose 139 H 223 H Random Glucose Calcium Magnesium B-Natriuretic Peptide Blood Type A Positive Antibody Screen NEGATIVE Crossmatch See Detail 01/10/21 01/10/21 01/10/21 06:05 06:05 07:09 Sodium 140 Potassium 3.5 Chloride 104 Carbon Dioxide 24 Anion Gap 16 BUN 62 H Creatinine 3.08 H Estim Creat Clear Calc 15.1 Estimated GFR 15 POC Glucose 140 H Random Glucose 129 H Calcium 8.2 L Magnesium 1.8 B-Natriuretic Peptide 1282 H Blood Type Antibody Screen Crossmatch 01/10/21 11:30 Sodium Potassium Chloride Carbon Dioxide Anion Gap BUN Creatinine Estim Creat Clear Calc Estimated GFR POC Glucose 223 H Random Glucose Calcium Magnesium B-Natriuretic Peptide Blood Type Antibody Screen Crossmatch Progress Note: A&P Assessment and plan (1) Congestive heart failure: Status: Acute Assessment and Plan: Congestive heart failure which seems to be improving diuresis. Patient remained symptomatic and severely anemic. Continue IV Lasix drip for 1 more day. Continue to trend BNP and BMP. Continue to transfuse to hematocrit above 30. Workup for anemia needs to be pursued aggressively. Most likely cause for decompensation appears to be severe anemia at this point in time. Blood pressure is elevated. Agree with addition of hydralazine. Maximize quickly as tolerated to target goal blood pressure less than 140/80. Agree to started 10 t.i.d. but quickly increased to 25 t.i.d. if blood pressure remains uncontrolled. Continue amlodipine therapy. Continue to follow renal function. Strict intake and output chart needs to be pursued. Will follow with the patient. Fall Risk Details Current Medications: Current Medications Generic Name Dose Route Start Last Admin Trade Name Freq PRN Reason Stop Dose Admin Acetaminophen 650 mg 01/07/21 18:06 01/10/21 10:26 Acetaminophen 325 Mg Tablet PO 650 mg Q6H PRN Administration Pain, Mild (Pain Scale 1-3) Amlodipine Besylate 10 mg 01/08/21 09:00 01/10/21 09:58 Amlodipine Besylate 10 Mg Tablet PO 10 mg DAILY PALOMO Administration Protocol Atorvastatin Calcium 40 mg 01/08/21 21:00 01/09/21 21:10 Atorvastatin Calcium 40 Mg Tablet PO 40 mg BEDTIME PALOMO Administration Cyanocobalamin 1,000 mcg 01/08/21 11:00 01/10/21 09:55 Cyanocobalamin (Vitamin B-12) 1,000 Mcg/Ml Vial IM 01/14/21 09:01 1,000 mcg DAILY PALOMO Administration Gabapentin 300 mg 01/08/21 09:00 01/10/21 09:57 Gabapentin 300 Mg Capsule PO 300 mg DAILY PALOMO Administration Hydralazine HCl 10 mg 01/08/21 21:00 01/10/21 09:57 Hydralazine Hcl 10 Mg Tablet PO 10 mg TID PALOMO Administration Protocol Furosemide 200 mg/ Sodium 100 mls @ 2.5 mls/hr 01/09/21 12:00 01/10/21 12:51 Chloride IVCONT 5 mg/hr .Q24H [facility] 2.5 mls/hr Administration 5 MG/HR Insulin Human Lispro 0 unit 01/07/21 18:06 01/10/21 11:55 Insulin Lispro 100 Unit/Ml 3 Ml Vial SUBCUT 4 unit QIDACHS [place] Administration Protocol Pantoprazole Sodium 40 mg 01/08/21 09:00 01/10/21 06:35 Pantoprazole Sodium 40 Mg/10 Ml Vial IVPUSH 40 mg BID@0630,1630 [facility]O Administration Sodium Chloride 3 ml 01/08/21 00:00 01/10/21 10:00 0.9 % Sodium Chloride Flush 3 Ml Syringe IVFLUSH 3 ml QSHIFT [facility] Administration Time Spent With Patient Time: Total time spent is greater than 50% in coordination of care (as documented) at patient's floor/unit and/or counseling patient: Time with patient: 15 - 24 minutes Procedures Date of Service Date of Service: 01/10/21
--- NOTE | 2021-01-10 14:26 | P.PNIM_ITS ---
Subjective Subjective Date of Service: 01/10/21 Interval History: tolerated transfusion of 2u PRBCs yesterday; Hb did not change dyspnea improving no lightheadedness Physical Exam Vital Signs: Vital Signs: Last Vital Signs Temp 97.9 F 01/10/21 11:26 Pulse 87 01/10/21 11:27 Resp 20 01/10/21 11:26 BP 175/75 H 01/10/21 11:27 Pulse Ox 95 01/10/21 11:27 Oxygen Flow Rate 4 01/07/21 14:17 Body Mass Index 36.3 Gen: in no acute distress HEENT: sclera anicteric, moist mucus membranes Neck: supple Lungs: diminished bilaterally Heart: regular rate and rhythm, no murmurs Abd: soft, non-tender, non-distended Ext: trace edema bilateral legs Skin: warm/well-perfused Neuro: alert and oriented x3, no focal findings Psych: appropriate affect Objective Data Current Medications Generic Name Dose Route Start Last Admin Trade Name Freq PRN Reason Stop Dose Admin Acetaminophen 650 mg 01/07/21 18:06 01/10/21 10:26 Acetaminophen 325 Mg Tablet PO 650 mg Q6H PRN Administration Pain, Mild (Pain Scale 1-3) Amlodipine Besylate 10 mg 01/08/21 09:00 01/10/21 09:58 Amlodipine Besylate 10 Mg Tablet PO 10 mg DAILY PALOMO Administration Protocol Atorvastatin Calcium 40 mg 01/08/21 21:00 01/09/21 21:10 Atorvastatin Calcium 40 Mg Tablet PO 40 mg BEDTIME PALOMO Administration Cyanocobalamin 1,000 mcg 01/08/21 11:00 01/10/21 09:55 Cyanocobalamin (Vitamin B-12) 1,000 Mcg/Ml Vial IM 01/14/21 09:01 1,000 mcg DAILY PALOMO Administration Gabapentin 300 mg 01/08/21 09:00 01/10/21 09:57 Gabapentin 300 Mg Capsule PO 300 mg DAILY PALOMO Administration Hydralazine HCl 10 mg 01/08/21 21:00 01/10/21 09:57 Hydralazine Hcl 10 Mg Tablet PO 10 mg TID PALOMO Administration Protocol Furosemide 200 mg/ Sodium 100 mls @ 2.5 mls/hr 01/09/21 12:00 01/10/21 12:51 Chloride IVCONT 5 mg/hr .Q24H [place] 2.5 mls/hr Administration 5 MG/HR Insulin Human Lispro 0 unit 01/07/21 18:06 01/10/21 11:55 Insulin Lispro 100 Unit/Ml 3 Ml Vial SUBCUT 4 unit QIDACHS [facility] Administration Protocol Pantoprazole Sodium 40 mg 01/08/21 09:00 01/10/21 06:35 Pantoprazole Sodium 40 Mg/10 Ml Vial IVPUSH 40 mg BID@0630,1630 [facility] Administration Sodium Chloride 3 ml 01/08/21 00:00 01/10/21 10:00 0.9 % Sodium Chloride Flush 3 Ml Syringe IVFLUSH 3 ml QSHIFT [facility] Administration Labs CBC & Chem 7: 01/09/21 06:22 01/10/21 06:05 Microbiology Microbiology Results: Microbiology 01/07/21 16:14 Blood - Venous Blood Culture - Preliminary No growth after 48 hours. 01/07/21 14:35 Blood - Venous Blood Culture - Preliminary No growth after 48 hours. Assessment and Plan (1) Hypoxia: Status: Acute (2) Anemia: Status: Acute (3) Chronic renal insufficiency: Status: Acute (4) CKD (chronic kidney disease): Status: Acute Assessment and Plan: hospital d#4 with diastolic CHF, CKD4, HTN, DM2 presented with dyspnea admitted with hypoxia, anemia much of which is chronic though FOBT+ and also found to have profound B12 deficiency; superimposed NAHID # acute/chronic HFpEF - IV furosemide infusion; -1.4L so far; monitor I/O + BNP/Mg/BMP # acute hypoxic resp failure - wean O2 as tolerated # anemia, multifactorial- GI bleed [FOBT+], B12 deficiency, CKD - GI consult appreciated, plan EGD + C-scope once more stable from cardiopulmona ry perspective; in meanwhile, will give IV PPI empirically - transfused 1u pRBCs 01/07, 2u pRBCs 01/09; will give another 2u pRBCs today # B12 deficiency anemia - sent anti-IF, parenteral replacement with 1000 mcg daily 01/08-01/14, then weekly x4wk, then monthly # NAHID/CKD4 # nephrotic syndrome - suspect cardiorenal + DM nephropathy, Nephrology following; YAMEL pending; monitor renal function # HTN - continue amlodipine. needs better control- added hydralazine # hyperK - resolved # ground glass infiltrate - suspect resolving PNA/edema, no mass identified, COVID-19 negative by ROBBIE and PCR # PVD - hold ASA for anemia, continue statin # DM2 - d/c'ed MTF given renal insufficiency and B12 deficiency, continue correction- dose lispro # VTE ppx - SCDs, no heparinoids given FOBT+
[2021-01-10] MEDS: hydrALAZINE HCl 25 MG TABLET PO ×2 (14:53→20:00)
[2021-01-10 16:06] LABS: Glucose, Whole Blood 121 mg/dL (60-115)
[2021-01-10 16:42] LABS: Hemoglobin 10.4 g/dl (12.0-16.0)
--- NOTE | 2021-01-10 16:49 | PM.PNNEP ---
Subjective Subjective Date of Service: 01/10/21 Principal diagnosis: CHF, anemia. Interval history: Events noted. All recent data reviewed Physical Exam Vital Signs: Vital Signs: Last Vital Signs Temp 99 F 01/10/21 15:27 Pulse 88 01/10/21 15:27 Resp 16 01/10/21 15:27 BP 150/82 H 01/10/21 15:27 Pulse Ox 96 01/10/21 15:27 Oxygen Flow Rate 4 01/07/21 14:17 Body Mass Index 36.3 Const: General: no acute distress Orientation/consciousness: patient oriented x3 Eyes: EOM: EOMs intact bilaterally Neck: Neck: Yes JVD Resp: Auscultation: diminished lung sounds Cardio: Rate: regular rate GI: Palpation (GI): Soft to palpation Neuro: General: patient oriented x3 and moves all extremities Objective Data Labs CBC & Chem 7: 01/10/21 16:12 01/10/21 06:05 Labs: Laboratory Results - last 24 hr 01/07/21 01/09/21 01/10/21 16:15 19:57 06:05 Hgb Hct Sodium 140 Potassium 3.5 Chloride 104 Carbon Dioxide 24 Anion Gap 16 BUN 62 H Creatinine 3.08 H Estim Creat Clear Calc 15.1 Estimated GFR 15 POC Glucose 223 H Random Glucose 129 H Calcium 8.2 L Magnesium 1.8 B-Natriuretic Peptide Blood Type A Positive Antibody Screen NEGATIVE Crossmatch See Detail 01/10/21 01/10/21 01/10/21 06:05 07:09 11:30 Hgb Hct Sodium Potassium Chloride Carbon Dioxide Anion Gap BUN Creatinine Estim Creat Clear Calc Estimated GFR POC Glucose 140 H 223 H Random Glucose Calcium Magnesium B-Natriuretic Peptide 1282 H Blood Type Antibody Screen Crossmatch 01/10/21 01/10/21 16:00 16:12 Hgb 10.4 L D Hct 31.0 L D Sodium Potassium Chloride Carbon Dioxide Anion Gap BUN Creatinine Estim Creat Clear Calc Estimated GFR POC Glucose 121 H Random Glucose Calcium Magnesium B-Natriuretic Peptide Blood Type Antibody Screen Crossmatch Microbiology Microbiology Results: Microbiology 01/07/21 16:14 Blood - Venous Blood Culture - Preliminary No growth after 48 hours. 01/07/21 14:35 Blood - Venous Blood Culture - Preliminary No growth after 48 hours. Assessment & Plan Assessment and plan (1) Chronic renal insufficiency: Problem details: NAHID due to Acute on chronic diastolic CHF and symptomatic anemia with Cardio renal syndrome- improving Continue diuresis/supportive care; No indication for renal replacement; Shall continue to closely follow up. Labs AM Status: Acute Time Spent With Patient Time: Total time spent is greater than 50% in coordination of care (as documented) at patient's floor/unit and/or counseling patient: Procedures Date of Service Date of Service: 01/10/21
[2021-01-10 19:41] LABS: Glucose, Whole Blood 272 mg/dL (60-115)
[2021-01-10] MEDS: Atorvastatin Calcium 40 MG TABLET PO (19:59)
[2021-01-11] VITALS (12 sets, daily range): BP systolic 120–163; BP diastolic 60–84; PULSE 79–85; RESP 17–20; TEMP 36.3–37.7; O2SAT 93–97
[2021-01-11] MEDS: Pantoprazole Sodium 40 MG/10 ML VIAL IVPUSH (05:45)
[2021-01-11 06:43] LABS: Hematocrit 33.1 % (37-47); Mean Corpuscular HGB Conc 33.2 g/dl (31.0-35.0); Mean Corpuscular Hemoglobin 29.4 pg (27.0-33.0); Mean Corpuscular Volume 88.5 fL (80-98); Mean Platelet Volume 10.8 fL (9.4-12.3); Platelet Count 276 X10*3/uL (160-400); Red Blood Count 3.74 X10*6/uL (4.20-5.50); Red Cell Distribution Width 14.8 % (11.0-16.0); White Blood Count 7.8 X10*3/uL (4.8-10.8)
[2021-01-11 06:54] LABS: B Type Natriuretic Peptide 1378 pg/mL (<100)
[2021-01-11 07:08] LABS: Glucose, Whole Blood 97 mg/dL (60-115)
[2021-01-11 07:10] LABS: Anion Gap 16 (12-20); Blood Urea Nitrogen 63 mg/dL (9-16); Calcium 8.3 mg/dL (8.4-10.2); Carbon Dioxide 27 mmol/L (22-29); Chloride 103 mmol/L (96-108); Creatinine Clr Calc Pharmacy 14.8; Estimated Glomerular Filt Rate 14; Glucose Random 97 mg/dL (60-115); Magnesium 1.7 mg/dL (1.6-2.6); Potassium 3.6 mmol/L (3.3-5.1); Sodium 142 mmol/L (135-145)
[2021-01-11] MEDS: Gabapentin 300 MG CAPSULE PO (09:17)
[2021-01-11] MEDS: amLODIPine Besylate 10 MG TABLET PO (09:17)
[2021-01-11] MEDS: hydrALAZINE HCl 25 MG TABLET PO (09:23)
[2021-01-11] MEDS: 0.9 % Sodium Chloride Flush 3 ML SYRINGE IVFLUSH ×2 (09:23→18:19)
[2021-01-11] MEDS: Cyanocobalamin (Vitamin B-12) 1,000 MCG/ML VIAL 1000 MCG IM (09:24)
--- NOTE | 2021-01-11 10:23 | PM.PNNEP ---
Subjective Subjective Date of Service: 01/11/21 Principal diagnosis: CHF, anemia. Interval history: Events noted. All recent data reviewed Physical Exam Vital Signs: Vital Signs: Last Vital Signs Temp 97.3 F 01/11/21 07:40 Pulse 82 01/11/21 09:23 Resp 18 01/11/21 07:40 BP 150/76 H 01/11/21 09:23 Pulse Ox 93 01/11/21 07:40 Oxygen Flow Rate 4 01/07/21 14:17 Body Mass Index 36.3 Const: General: no acute distress Orientation/consciousness: patient oriented x3 Neck: Neck: Yes supple Resp: Auscultation: diminished lung sounds Cardio: Jugular venous distension: JVD GI: Palpation (GI): Soft to palpation Neuro: General: patient oriented x3 and moves all extremities Objective Data Labs CBC & Chem 7: 01/11/21 05:45 01/11/21 05:45 Labs: Laboratory Results - last 24 hr 01/07/21 01/10/21 01/10/21 16:15 11:30 16:00 WBC RBC Hgb Hct MCV MCH MCHC RDW Plt Count MPV Absolute Nucleated RBC Nucleated RBC % (auto) Sodium Potassium Chloride Carbon Dioxide Anion Gap BUN Creatinine Estim Creat Clear Calc Estimated GFR POC Glucose 223 H 121 H Random Glucose Calcium Magnesium B-Natriuretic Peptide Blood Type A Positive Antibody Screen NEGATIVE Crossmatch See Detail 01/10/21 01/10/21 01/11/21 16:12 19:35 05:45 WBC 7.8 RBC 3.74 L D Hgb 10.4 L D 11.0 L Hct 31.0 L D 33.1 L MCV 88.5 MCH 29.4 MCHC 33.2 RDW 14.8 Plt Count 276 MPV 10.8 Absolute Nucleated RBC 0.000 Nucleated RBC % (auto) 0.0 Sodium Potassium Chloride Carbon Dioxide Anion Gap BUN Creatinine Estim Creat Clear Calc Estimated GFR POC Glucose 272 H Random Glucose Calcium Magnesium B-Natriuretic Peptide Blood Type Antibody Screen Crossmatch 01/11/21 01/11/21 01/11/21 05:45 05:45 06:59 WBC RBC Hgb Hct MCV MCH MCHC RDW Plt Count MPV Absolute Nucleated RBC Nucleated RBC % (auto) Sodium 142 Potassium 3.6 Chloride 103 Carbon Dioxide 27 Anion Gap 16 BUN 63 H Creatinine 3.16 H Estim Creat Clear Calc 14.8 Estimated GFR 14 POC Glucose 97 Random Glucose 97 Calcium 8.3 L Magnesium 1.7 B-Natriuretic Peptide 1378 H Blood Type Antibody Screen Crossmatch Microbiology Microbiology Results: Microbiology 01/07/21 16:14 Blood - Venous Blood Culture - Preliminary No growth after 48 hours. 01/07/21 14:35 Blood - Venous Blood Culture - Preliminary No growth after 48 hours. Assessment & Plan Assessment and plan (1) Chronic renal insufficiency: Problem details: NAHID due to Acute on chronic diastolic CHF and symptomatic anemia with Cardio renal syndrome- improved/stable Continue diuresis/supportive care; No indication for renal replacement; Shall continue to closely follow up. Labs AM Status: Acute Time Spent With Patient Time: Total time spent is greater than 50% in coordination of care (as documented) at patient's floor/unit and/or counseling patient: Procedures Date of Service Date of Service: 01/11/21
[2021-01-11 11:08] LABS: Glucose, Whole Blood 178 mg/dL (60-115)
[2021-01-11] MEDS: Insulin Lispro 100 UNIT/ML 3 ML VIAL SUBCUT ×3 (11:45→20:54)
--- NOTE | 2021-01-11 12:32 | P.PNCA_ITS ---
Subjective Subjective Date of Service: 01/11/21 Principal diagnosis: CHF, anemia. Interval history: Patient still short of breath, says however feels better. Has received blood transfusion and hematocrit has improved. Overall total negative balance, still receiving IV diuresis. No chest pain, lightheadedness, syncope. Review of Systems Constitutional: Reports no additional constitutional complaints Cardiovascular: Denies chest pain, Denies lightheadedness, Denies Loss of Consc iousness, Denies palpitations and Reports dyspnea Respiratory: Reports chest congestion and Reports dyspnea Gastrointestinal: Reports no additional gastrointestinal complaints Genitourinary: Reports no additional female genitourinary complaints Reports system reviewed and no additional complaints, except as documented Endocrine: Reports no additional endocrine complaints and Denies palpitations Physical Exam Vital Signs: Last Vital Signs Temp 97.5 F 01/11/21 11:34 Pulse 84 01/11/21 11:34 Resp 18 01/11/21 11:34 BP 159/60 H 01/11/21 11:34 Pulse Ox 94 01/11/21 11:34 Oxygen Flow Rate 4 01/07/21 14:17 Body Mass Index 36.3 Const General: cooperative, alert, awake and acute distress mild and respiratory Nutritional Appearance: obese Orientation/consciousness: patient oriented x3 Neck Neck: Yes trachea midline, Yes supple and Yes JVD Resp Effort & Inspection: normal respiratory effort Auscultation: rales bilateral Cardio Jugular venous distension: JVD Palpation: normal PMI Rate: regular rate Rhythm: regular rhythm Heart sounds: S1 normal heart sound present and S2 normal heart sound present Neuro General: patient oriented x3 and no focal motor deficits Extrem General: No clubbing, No cyanosis and Yes edema Results Labs and Meds Result diagrams: 01/11/21 05:45 01/11/21 05:45 Lab results: Laboratory Results - last 24 hr 01/07/21 01/10/21 01/10/21 16:15 16:00 16:12 WBC RBC Hgb 10.4 L D Hct 31.0 L D MCV MCH MCHC RDW Plt Count MPV Absolute Nucleated RBC Nucleated RBC % (auto) Sodium Potassium Chloride Carbon Dioxide Anion Gap BUN Creatinine Estim Creat Clear Calc Estimated GFR POC Glucose 121 H Random Glucose Calcium Magnesium B-Natriuretic Peptide Blood Type A Positive Antibody Screen NEGATIVE Crossmatch See Detail 01/10/21 01/11/21 01/11/21 19:35 05:45 05:45 WBC 7.8 RBC 3.74 L D Hgb 11.0 L Hct 33.1 L MCV 88.5 MCH 29.4 MCHC 33.2 RDW 14.8 Plt Count 276 MPV 10.8 Absolute Nucleated RBC 0.000 Nucleated RBC % (auto) 0.0 Sodium 142 Potassium 3.6 Chloride 103 Carbon Dioxide 27 Anion Gap 16 BUN 63 H Creatinine 3.16 H Estim Creat Clear Calc 14.8 Estimated GFR 14 POC Glucose 272 H Random Glucose 97 Calcium 8.3 L Magnesium 1.7 B-Natriuretic Peptide Blood Type Antibody Screen Crossmatch 01/11/21 01/11/21 01/11/21 05:45 06:59 11:03 WBC RBC Hgb Hct MCV MCH MCHC RDW Plt Count MPV Absolute Nucleated RBC Nucleated RBC % (auto) Sodium Potassium Chloride Carbon Dioxide Anion Gap BUN Creatinine Estim Creat Clear Calc Estimated GFR POC Glucose 97 178 H Random Glucose Calcium Magnesium B-Natriuretic Peptide 1378 H Blood Type Antibody Screen Crossmatch Progress Note: A&P Assessment and plan (1) Congestive heart failure: Status: Acute Assessment and Plan: CHF, slowly improving, still having rales bilaterally most likely from blood transfusion yesterday with sodium load. Continue IV diuresis with Lasix drip. BNP still elevated. Will continue to monitor intake and output. Continue to trend BMP and BNP. Continue to up titrate hydralazine for better blood pressure control. Will follow with you. Fall Risk Details Current Medications: Current Medications Generic Name Dose Route Start Last Admin Trade Name Freq PRN Reason Stop Dose Admin Acetaminophen 650 mg 01/07/21 18:06 01/10/21 20:01 Acetaminophen 325 Mg Tablet PO 650 mg Q6H PRN Administration Pain, Mild (Pain Scale 1-3) Amlodipine Besylate 10 mg 01/08/21 09:00 01/11/21 09:17 Amlodipine Besylate 10 Mg Tablet PO 10 mg DAILY PALOMO Administration Protocol Atorvastatin Calcium 40 mg 01/08/21 21:00 01/10/21 19:59 Atorvastatin Calcium 40 Mg Tablet PO 40 mg BEDTIME PALOMO Administration Cyanocobalamin 1,000 mcg 01/08/21 11:00 01/11/21 09:24 Cyanocobalamin (Vitamin B-12) 1,000 Mcg/Ml Vial IM 01/14/21 09:01 1,000 mcg DAILY PALOMO Administration Gabapentin 300 mg 01/08/21 09:00 01/11/21 09:17 Gabapentin 300 Mg Capsule PO 300 mg DAILY PALOMO Administration Hydralazine HCl 25 mg 01/10/21 15:00 01/11/21 09:23 Hydralazine Hcl 25 Mg Tablet PO 25 mg TID PALOMO Administration Protocol Furosemide 200 mg/ Sodium 100 mls @ 2.5 mls/hr 01/09/21 12:00 01/10/21 12:51 Chloride IVCONT 5 mg/hr .Q24H PALOMO 2.5 mls/hr Administration 5 MG/HR Insulin Human Lispro 0 unit 01/07/21 18:06 01/11/21 11:45 Insulin Lispro 100 Unit/Ml 3 Ml Vial SUBCUT 2 unit QIDACHS PALOMO Administration Protocol Polyethylene Glycol 17 gm 01/11/21 10:52 Polyethylene Glycol 3350 17 Gm Powd.Pack PO DAILY PRN constipation Sodium Chloride 3 ml 01/08/21 00:00 01/11/21 09:23 0.9 % Sodium Chloride Flush 3 Ml Syringe IVFLUSH 3 ml QSHIFT PALOMO Administration Time Spent With Patient Time: Total time spent is greater than 50% in coordination of care (as documented) at patient's floor/unit and/or counseling patient: Time with patient: 15 - 24 minutes Procedures Date of Service Date of Service: 01/11/21
[2021-01-11] MEDS: Furosemide 200 MG in 0.9 % Sodium Chloride 80 ML IVCONT (12:42)
--- NOTE | 2021-01-11 14:16 | P.PNIM_ITS ---
Subjective Subjective Date of Service: 01/11/21 Interval History: dyspnea improved tolerated transfusion yesterday Physical Exam Vital Signs: Vital Signs: Last Vital Signs Temp 97.5 F 01/11/21 11:34 Pulse 84 01/11/21 11:34 Resp 18 01/11/21 11:34 BP 159/60 H 01/11/21 11:34 Pulse Ox 94 01/11/21 11:34 Oxygen Flow Rate 4 01/07/21 14:17 Body Mass Index 36.3 Gen: in no acute distress HEENT: sclera anicteric, moist mucus membranes Neck: supple Lungs: diminished bilaterally, inspiratory crackles at bases Heart: regular rate and rhythm, no murmurs Abd: soft, non-tender, non-distended Ext: trace edema bilateral legs Skin: warm/well-perfused Neuro: alert and oriented x3, no focal findings Psych: appropriate affect Objective Data Current Medications Generic Name Dose Route Start Last Admin Trade Name Freq PRN Reason Stop Dose Admin Acetaminophen 650 mg 01/07/21 18:06 01/10/21 20:01 Acetaminophen 325 Mg Tablet PO 650 mg Q6H PRN Administration Pain, Mild (Pain Scale 1-3) Amlodipine Besylate 10 mg 01/08/21 09:00 01/11/21 09:17 Amlodipine Besylate 10 Mg Tablet PO 10 mg DAILY PALOMO Administration Protocol Atorvastatin Calcium 40 mg 01/08/21 21:00 01/10/21 19:59 Atorvastatin Calcium 40 Mg Tablet PO 40 mg BEDTIME PALOMO Administration Cyanocobalamin 1,000 mcg 01/08/21 11:00 01/11/21 09:24 Cyanocobalamin (Vitamin B-12) 1,000 Mcg/Ml Vial IM 01/14/21 09:01 1,000 mcg DAILY PALOMO Administration Gabapentin 300 mg 01/08/21 09:00 01/11/21 09:17 Gabapentin 300 Mg Capsule PO 300 mg DAILY PALOMO Administration Hydralazine HCl 25 mg 01/10/21 15:00 01/11/21 09:23 Hydralazine Hcl 25 Mg Tablet PO 25 mg TID PALOMO Administration Protocol Furosemide 200 mg/ Sodium 100 mls @ 2.5 mls/hr 01/09/21 12:00 01/11/21 12:42 Chloride IVCONT 5 mg/hr .Q24H PALOMO 2.5 mls/hr Administration 5 MG/HR Insulin Human Lispro 0 unit 01/07/21 18:06 01/11/21 11:45 Insulin Lispro 100 Unit/Ml 3 Ml Vial SUBCUT 2 unit QIDACHS [facility] Administration Protocol Polyethylene Glycol 17 gm 01/11/21 10:52 Polyethylene Glycol 3350 17 Gm Powd.Pack PO DAILY PRN constipation Sodium Chloride 3 ml 01/08/21 00:00 01/11/21 09:23 0.9 % Sodium Chloride Flush 3 Ml Syringe IVFLUSH 3 ml QSHIFT [facility] Administration Labs CBC & Chem 7: 01/11/21 05:45 01/11/21 05:45 Labs: Laboratory Results - last 24 hr 01/07/21 01/10/21 01/10/21 16:15 16:00 16:12 WBC RBC Hgb 10.4 L D Hct 31.0 L D MCV MCH MCHC RDW Plt Count MPV Absolute Nucleated RBC Nucleated RBC % (auto) Sodium Potassium Chloride Carbon Dioxide Anion Gap BUN Creatinine Estim Creat Clear Calc Estimated GFR POC Glucose 121 H Random Glucose Calcium Magnesium B-Natriuretic Peptide Blood Type A Positive Antibody Screen NEGATIVE Crossmatch See Detail 01/10/21 01/11/21 01/11/21 19:35 05:45 05:45 WBC 7.8 RBC 3.74 L D Hgb 11.0 L Hct 33.1 L MCV 88.5 MCH 29.4 MCHC 33.2 RDW 14.8 Plt Count 276 MPV 10.8 Absolute Nucleated RBC 0.000 Nucleated RBC % (auto) 0.0 Sodium 142 Potassium 3.6 Chloride 103 Carbon Dioxide 27 Anion Gap 16 BUN 63 H Creatinine 3.16 H Estim Creat Clear Calc 14.8 Estimated GFR 14 POC Glucose 272 H Random Glucose 97 Calcium 8.3 L Magnesium 1.7 B-Natriuretic Peptide Blood Type Antibody Screen Crossmatch 01/11/21 01/11/21 01/11/21 05:45 06:59 11:03 WBC RBC Hgb Hct MCV MCH MCHC RDW Plt Count MPV Absolute Nucleated RBC Nucleated RBC % (auto) Sodium Potassium Chloride Carbon Dioxide Anion Gap BUN Creatinine Estim Creat Clear Calc Estimated GFR POC Glucose 97 178 H Random Glucose Calcium Magnesium B-Natriuretic Peptide 1378 H Blood Type Antibody Screen Crossmatch Microbiology Microbiology Results: Microbiology 01/07/21 16:14 Blood - Venous Blood Culture - Preliminary No growth after 48 hours. 01/07/21 14:35 Blood - Venous Blood Culture - Preliminary No growth after 48 hours. Assessment and Plan (1) Hypoxia: Status: Acute (2) Anemia: Status: Acute (3) Chronic renal insufficiency: Status: Acute (4) CKD (chronic kidney disease): Status: Acute Assessment and Plan: hospital d#5 with diastolic CHF, CKD4, HTN, DM2 presented with dyspnea admitted with hypoxia, anemia much of which is chronic though FOBT+ and also found to have profound B12 deficiency; superimposed NAHID # acute/chronic HFpEF - continue IV furosemide infusion; -2.9L so far; monitor I/O + BNP/Mg/BMP; Cardiology following # acute hypoxic resp failure - wean O2 as tolerated # anemia, multifactorial- GI bleed [FOBT+], B12 deficiency, CKD - GI consult appreciated, plan EGD + C-scope once more stable from cardiopulmonary perspective; in meanwhile, will give IV PPI empirically - transfused 1u pRBCs 01/07, 2u pRBCs 01/09, 2u pRBCs 01/10 # B12 deficiency anemia - sent anti-IF, parenteral replacement with 1000 mcg daily 01/08-01/14, then weekly x4wk, then monthly # NAHID/CKD4 # nephrotic syndrome - suspect cardiorenal + DM nephropathy, Nephrology following; YAMEL pending; monitor renal function- SCr appears to have plateaued # HTN - continue amlodipine. needs better control- increase hydralazine # hyperK - resolved # ground glass infiltrate - suspect resolving PNA/edema, no mass identified, COVID-19 negative by ROBBIE and PCR # PVD - hold ASA for anemia, continue statin # DM2 - d/c'ed MTF given renal insufficiency and B12 deficiency, continue correction- dose lispro # VTE ppx - SCDs, no heparinoids given FOBT+ # dispo - anticipate STR in next 3-4d
[2021-01-11 14:21] LABS: IgA 179 mg/dL (70-320); IgG 965 mg/dL (600-1540); IgM 44 mg/dL (50-300)
[2021-01-11] MEDS: hydrALAZINE HCl 50 MG TABLET PO ×2 (14:42→20:50)
[2021-01-11 16:14] LABS: Glucose, Whole Blood 184 mg/dL (60-115)
[2021-01-11] MEDS: Acetaminophen 325 MG TABLET 650 MG PO (18:24)
[2021-01-11] MEDS: polyethylene glycoL 3350 17 GM POWD.PACK PO (18:24)
[2021-01-11 19:51] LABS: Glucose, Whole Blood 224 mg/dL (60-115)
[2021-01-11] MEDS: Atorvastatin Calcium 40 MG TABLET PO (20:50)
[2021-01-12] VITALS (9 sets, daily range): BP systolic 134–174; BP diastolic 62–80; PULSE 76–85; RESP 16–20; TEMP 36.4–37.4; O2SAT 92–97
[2021-01-12 06:42] LABS: Hematocrit 33.8 % (37-47); Hemoglobin 11.3 g/dl (12.0-16.0); Mean Corpuscular HGB Conc 33.4 g/dl (31.0-35.0); Mean Corpuscular Hemoglobin 29.8 pg (27.0-33.0); Mean Corpuscular Volume 89.2 fL (80-98); Mean Platelet Volume 10.6 fL (9.4-12.3); Platelet Count 254 X10*3/uL (160-400); Red Blood Count 3.79 X10*6/uL (4.20-5.50); Red Cell Distribution Width 15.1 % (11.0-16.0); White Blood Count 7.5 X10*3/uL (4.8-10.8)
[2021-01-12 06:53] LABS: Anion Gap 13 (12-20); Blood Urea Nitrogen 66 mg/dL (9-16); Calcium 8.3 mg/dL (8.4-10.2); Carbon Dioxide 29 mmol/L (22-29); Chloride 100 mmol/L (96-108); Creatinine Clr Calc Pharmacy 14.2; Estimated Glomerular Filt Rate 14; Glucose Random 118 mg/dL (60-115); Magnesium 1.6 mg/dL (1.6-2.6); Potassium 3.3 mmol/L (3.3-5.1); Sodium 139 mmol/L (135-145)
[2021-01-12 06:57] LABS: B Type Natriuretic Peptide 1096 pg/mL (<100)
[2021-01-12 07:13] LABS: Glucose, Whole Blood 116 mg/dL (60-115)
[2021-01-12] MEDS: 0.9 % Sodium Chloride Flush 3 ML SYRINGE IVFLUSH ×3 (09:17→20:17)
[2021-01-12] MEDS: Cyanocobalamin (Vitamin B-12) 1,000 MCG/ML VIAL 1000 MCG IM (09:18)
[2021-01-12] MEDS: Gabapentin 300 MG CAPSULE PO (09:19)
[2021-01-12] MEDS: Magnesium Oxide 400 MG TABLET 800 MG PO (09:19)
[2021-01-12] MEDS: Potassium Chloride ER 20 MEQ TAB.ER.PRT PO (09:19)
[2021-01-12] MEDS: hydrALAZINE HCl 50 MG TABLET PO (09:20)
[2021-01-12] MEDS: amLODIPine Besylate 10 MG TABLET PO (09:20)
[2021-01-12 11:08] LABS: Glucose, Whole Blood 162 mg/dL (60-115)
[2021-01-12] MEDS: Insulin Lispro 100 UNIT/ML 3 ML VIAL SUBCUT ×3 (11:38→20:29)
[2021-01-12] MEDS: Furosemide 200 MG in 0.9 % Sodium Chloride 80 ML IVCONT (11:39)
--- NOTE | 2021-01-12 11:40 | MHC.CM.PN ---
Per ROUNDS discussion, Patient is not yet medically cleared for dc and will likely remain here over the weekend. PT recommended STR; CM will continue to follow to determine ultimate dc plan (Home/resume services VS STR).
--- NOTE | 2021-01-12 12:40 | PM.PNNEP ---
Subjective Subjective Date of Service: 01/12/21 Principal diagnosis: CHF, anemia. Interval history: Events noted. All recent data reviewed Physical Exam Vital Signs: Vital Signs: Last Vital Signs Temp 99.4 F 01/12/21 11:30 Pulse 84 01/12/21 11:30 Resp 18 01/12/21 11:30 BP 165/77 H 01/12/21 11:30 Pulse Ox 97 01/12/21 11:30 Oxygen Flow Rate 4 01/07/21 14:17 Body Mass Index 36.3 Const: General: no acute distress Eyes: EOM: EOMs intact bilaterally Neck: Neck: Yes supple Resp: Auscultation: diminished lung sounds Cardio: Jugular venous distension: JVD GI: Palpation (GI): Soft to palpation Neuro: General: moves all extremities Objective Data Labs CBC & Chem 7: 01/12/21 06:00 01/12/21 06:00 Labs: Laboratory Results - last 24 hr 01/09/21 01/11/21 01/11/21 06:22 15:59 19:46 WBC RBC Hgb Hct MCV MCH MCHC RDW Plt Count MPV Absolute Nucleated RBC Nucleated RBC % (auto) Sodium Potassium Chloride Carbon Dioxide Anion Gap BUN Creatinine Estim Creat Clear Calc Estimated GFR POC Glucose 184 H 224 H Random Glucose Calcium Magnesium B-Natriuretic Peptide IgG Total 965 IgA Total 179 IgM 44 L YAMEL Interpretation SEE NOTE 01/12/21 01/12/21 01/12/21 06:00 06:00 06:00 WBC 7.5 RBC 3.79 L Hgb 11.3 L Hct 33.8 L MCV 89.2 MCH 29.8 MCHC 33.4 RDW 15.1 Plt Count 254 MPV 10.6 Absolute Nucleated RBC 0.000 Nucleated RBC % (auto) 0.0 Sodium 139 Potassium 3.3 Chloride 100 Carbon Dioxide 29 Anion Gap 13 BUN 66 H Creatinine 3.28 H Estim Creat Clear Calc 14.2 Estimated GFR 14 POC Glucose Random Glucose 118 H Calcium 8.3 L Magnesium 1.6 B-Natriuretic Peptide 1096 H IgG Total IgA Total IgM YAMEL Interpretation 01/12/21 01/12/21 07:09 11:00 WBC RBC Hgb Hct MCV MCH MCHC RDW Plt Count MPV Absolute Nucleated RBC Nucleated RBC % (auto) Sodium Potassium Chloride Carbon Dioxide Anion Gap BUN Creatinine Estim Creat Clear Calc Estimated GFR POC Glucose 116 H 162 H Random Glucose Calcium Magnesium B-Natriuretic Peptide IgG Total IgA Total IgM YAMEL Interpretation Microbiology Microbiology Results: Microbiology 01/07/21 16:14 Blood - Venous Blood Culture - Preliminary No growth after 48 hours. 01/07/21 14:35 Blood - Venous Blood Culture - Preliminary No growth after 48 hours. Assessment & Plan Assessment and plan (1) CKD (chronic kidney disease): Status: Acute Assessment and Plan: NAHID due to Acute on chronic diastolic CHF and symptomatic anemia with Cardio renal syndrome- improved/stable Continue diuresis/supportive care; No indication for renal replacement; Shall continue to closely follow up. Labs AM Time Spent With Patient Time: Total time spent is greater than 50% in coordination of care (as documented) at patient's floor/unit and/or counseling patient: Procedures Date of Service Date of Service: 01/12/21
--- NOTE | 2021-01-12 14:35 | P.PNCA_ITS ---
Subjective Subjective Date of Service: 01/12/21 Principal diagnosis: CHF, anemia. Interval history: Patient says he she is feeling weaker. She has pain in her legs and therefore cannot get out of bed to chair. Still has shortness of breath but improving. Overall negative balance of 5 L. renal function is stable. BNP has reduced marginally. Still remains hypertensive. Currently on Lasix drip. Hemoglobin is stable. Review of Systems Constitutional: Reports fatigue and Reports weakness Cardiovascular: Denies chest pain, Denies lightheadedness, Denies Loss of Consciousness, Denies palpitations and Reports dyspnea Respiratory: Reports no additional respiratory complaints and Reports dyspnea Gastrointestinal: Reports no additional gastrointestinal complaints Reports system reviewed and no additional complaints, except as documented and Reports weakness Psychiatric: Reports no additional psychiatric complaints Endocrine: Reports fatigue and Denies palpitations Hematologic/Lymphatic: Reports no additional hematologic/lymphatic complaints Physical Exam Vital Signs: Last Vital Signs Temp 99.4 F 01/12/21 11:30 Pulse 84 01/12/21 13:22 Resp 18 01/12/21 11:30 BP 165/77 H 01/12/21 13:22 Pulse Ox 97 01/12/21 13:22 Oxygen Flow Rate 4 01/07/21 14:17 Body Mass Index 36.3 Const General: cooperative, no acute distress, alert, awake and tired appearing Nutritional Appearance: obese Orientation/consciousness: patient oriented x3 Limitations: physical limitations Neck Neck: Yes trachea midline, Yes supple and Yes no JVD (Positive AJR) Resp Effort & Inspection: decreased respiratory effort Auscultation: diminished lung sounds Cardio Palpation: normal PMI Rate: regular rate Rhythm: regular rhythm Heart sounds: S1 normal heart sound present and S2 normal heart sound present Skin General skin exam: no rashes or lesions noted Neuro General: patient oriented x3 Extrem General: Yes no clubbing, cyanosis or edema Results Labs and Meds Result diagrams: 01/12/21 06:00 01/12/21 06:00 Lab results: Laboratory Results - last 24 hr 01/11/21 01/11/21 01/12/21 15:59 19:46 06:00 WBC 7.5 RBC 3.79 L Hgb 11.3 L Hct 33.8 L MCV 89.2 MCH 29.8 MCHC 33.4 RDW 15.1 Plt Count 254 MPV 10.6 Absolute Nucleated RBC 0.000 Nucleated RBC % (auto) 0.0 Sodium Potassium Chloride Carbon Dioxide Anion Gap BUN Creatinine Estim Creat Clear Calc Estimated GFR POC Glucose 184 H 224 H Random Glucose Calcium Magnesium B-Natriuretic Peptide 01/12/21 01/12/21 01/12/21 06:00 06:00 07:09 WBC RBC Hgb Hct MCV MCH MCHC RDW Plt Count MPV Absolute Nucleated RBC Nucleated RBC % (auto) Sodium 139 Potassium 3.3 Chloride 100 Carbon Dioxide 29 Anion Gap 13 BUN 66 H Creatinine 3.28 H Estim Creat Clear Calc 14.2 Estimated GFR 14 POC Glucose 116 H Random Glucose 118 H Calcium 8.3 L Magnesium 1.6 B-Natriuretic Peptide 1096 H 01/12/21 11:00 WBC RBC Hgb Hct MCV MCH MCHC RDW Plt Count MPV Absolute Nucleated RBC Nucleated RBC % (auto) Sodium Potassium Chloride Carbon Dioxide Anion Gap BUN Creatinine Estim Creat Clear Calc Estimated GFR POC Glucose 162 H Random Glucose Calcium Magnesium B-Natriuretic Peptide Progress Note: A&P Assessment and plan (1) Congestive heart failure: Status: Acute Assessment and Plan: Congestive heart failure which is improving. Anemia has improved. Blood pressures still are well controlled. Continue to maximize hydralazine as tolerated. Continue IV diuresis with Lasix drip for 1 more day. Strict intake and output chart. Follow BMP and BNP tomorrow. If she continues to have good diuretic response, and appears with better volume status tomorrow will change to oral diuretic to Bumex 2 mg daily. Heart failure management was discussed with both the patient and the daughter. Advise out of bed to chair and physical therapy consultation. CHF education to be provided in [place]ron[place]. Continue to correct anemia and replace B12 and iron as needed. GI workup as outpatient. Will continue to follow Thank you for allowing us to partake in the care Fall Risk Details Current Medications: Current Medications Generic Name Dose Route Start Last Admin Trade Name Freq PRN Reason Stop Dose Admin Acetaminophen 650 mg 01/07/21 18:06 01/11/21 18:24 Acetaminophen 325 Mg Tablet PO 650 mg Q6H PRN Administration Pain, Mild (Pain Scale 1-3) Amlodipine Besylate 10 mg 01/08/21 09:00 01/12/21 09:20 Amlodipine Besylate 10 Mg Tablet PO 10 mg DAILY PALOMO Administration Protocol Atorvastatin Calcium 40 mg 01/08/21 21:00 01/11/21 20:50 Atorvastatin Calcium 40 Mg Tablet PO 40 mg BEDTIME PALOMO Administration Cyanocobalamin 1,000 mcg 01/08/21 11:00 01/12/21 09:18 Cyanocobalamin (Vitamin B-12) 1,000 Mcg/Ml Vial IM 01/14/21 09:01 1,000 mcg DAILY PALOMO Administration Gabapentin 300 mg 01/08/21 09:00 01/12/21 09:19 Gabapentin 300 Mg Capsule PO 300 mg DAILY PALOMO Administration Hydralazine HCl 50 mg 01/11/21 14:17 01/12/21 09:20 Hydralazine Hcl 50 Mg Tablet PO 50 mg TID PALOMO Administration Protocol Furosemide 200 mg/ Sodium 100 mls @ 2.5 mls/hr 01/09/21 12:00 01/12/21 11:39 Chloride IVCONT 5 mg/hr .Q24H PALOMO 2.5 mls/hr Administration 5 MG/HR Insulin Human Lispro 0 unit 01/07/21 18:06 01/12/21 11:38 Insulin Lispro 100 Unit/Ml 3 Ml Vial SUBCUT 2 unit QIDACHS PALOMO Administration Protocol Polyethylene Glycol 17 gm 01/11/21 10:52 01/11/21 18:24 Polyethylene Glycol 3350 17 Gm Powd.Pack PO 17 gm DAILY PRN Administration constipation Sodium Chloride 3 ml 01/08/21 00:00 01/12/21 09:17 0.9 % Sodium Chloride Flush 3 Ml Syringe IVFLUSH 3 ml QSHIFT PALOMO Administration Time Spent With Patient Time: Total time spent is greater than 50% in coordination of care (as documented) at patient's floor/unit and/or counseling patient: Time with patient: 25 - 35 minutes Procedures Date of Service Date of Service: 01/12/21
--- NOTE | 2021-01-12 15:03 | P.PNIM_ITS ---
Subjective Subjective Date of Service: 01/12/21 Interval History: dyspnea improved no chest pain Physical Exam Vital Signs: Vital Signs: Last Vital Signs Temp 99.4 F 01/12/21 11:30 Pulse 84 01/12/21 13:22 Resp 18 01/12/21 11:30 BP 165/77 H 01/12/21 13:22 Pulse Ox 97 01/12/21 13:22 Oxygen Flow Rate 4 01/07/21 14:17 Body Mass Index 36.3 Gen: in no acute distress HEENT: sclera anicteric, moist mucus membranes Neck: supple Lungs: diminished bilaterally, inspiratory crackles at bases Heart: regular rate and rhythm, no murmurs Abd: soft, non-tender, non-distended Ext: trace edema bilateral legs Skin: warm/well-perfused Neuro: alert and oriented x3, no focal findings Psych: appropriate affect Objective Data Current Medications Generic Name Dose Route Start Last Admin Trade Name Freq PRN Reason Stop Dose Admin Acetaminophen 650 mg 01/07/21 18:06 01/11/21 18:24 Acetaminophen 325 Mg Tablet PO 650 mg Q6H PRN Administration Pain, Mild (Pain Scale 1-3) Amlodipine Besylate 10 mg 01/08/21 09:00 01/12/21 09:20 Amlodipine Besylate 10 Mg Tablet PO 10 mg DAILY [facility]O Administration Protocol Atorvastatin Calcium 40 mg 01/08/21 21:00 01/11/21 20:50 Atorvastatin Calcium 40 Mg Tablet PO 40 mg BEDTIME [facility] Administration Cyanocobalamin 1,000 mcg 01/08/21 11:00 01/12/21 09:18 Cyanocobalamin (Vitamin B-12) 1,000 Mcg/Ml Vial IM 01/14/21 09:01 1,000 mcg DAILY [facility]OMO Administration Gabapentin 300 mg 01/08/21 09:00 01/12/21 09:19 Gabapentin 300 Mg Capsule PO 300 mg DAILY PALOMO Administration Hydralazine HCl 50 mg 01/11/21 14:17 01/12/21 09:20 Hydralazine Hcl 50 Mg Tablet PO 50 mg TID PALOMO Administration Protocol Furosemide 200 mg/ Sodium 100 mls @ 2.5 mls/hr 01/09/21 12:00 01/12/21 11:39 Chloride IVCONT 5 mg/hr .Q24H PALOMO 2.5 mls/hr Administration 5 MG/HR Insulin Human Lispro 0 unit 01/07/21 18:06 01/12/21 11:38 Insulin Lispro 100 Unit/Ml 3 Ml Vial SUBCUT 2 unit QIDACHS [facility] Administration Protocol Polyethylene Glycol 17 gm 01/11/21 10:52 01/11/21 18:24 Polyethylene Glycol 3350 17 Gm Powd.Pack PO 17 gm DAILY PRN Administration constipation Sodium Chloride 3 ml 01/08/21 00:00 01/12/21 09:17 0.9 % Sodium Chloride Flush 3 Ml Syringe IVFLUSH 3 ml QSHIFT [facility] Administration Labs CBC & Chem 7: 01/12/21 06:00 01/12/21 06:00 Microbiology Microbiology Results: Microbiology 01/07/21 16:14 Blood - Venous Blood Culture - Preliminary No growth after 48 hours. 01/07/21 14:35 Blood - Venous Blood Culture - Preliminary No growth after 48 hours. Assessment and Plan (1) Hypoxia: Status: Acute (2) Anemia: Status: Acute (3) Chronic renal insufficiency: Status: Acute (4) CKD (chronic kidney disease): Status: Acute Assessment and Plan: hospital d#6 with diastolic CHF, CKD4, HTN, DM2 presented with dyspnea admitted with hypoxia, anemia much of which is chronic though FOBT+ and also found to have profound B12 deficiency; superimposed NAHID # acute/chronic HFpEF - continue IV furosemide infusion; negative 5L so far; monitor I/O + BNP/Mg/BMP; Cardiology following # acute hypoxic resp failure - wean O2 as tolerated # anemia, multifactorial- GI bleed [FOBT+], B12 deficiency, CKD - GI consult appreciated, plan EGD + C-scope once more stable from c ardiopulmonary perspective, likely Friday; in meanwhile, will give IV PPI empirically - transfused 1u pRBCs 01/07, 2u pRBCs 01/09, 2u pRBCs 01/10 with appropriate response in Hb # B12 deficiency anemia - sent anti-IF, giving parenteral replacement with 1000 mcg daily 01/08-01/14, then weekly x4wk, then monthly # monoclonal gammopathy - YAMEL shows IgG lambda monoclonal band; will consult Heme/Onc # NAHID/CKD4 # nephrotic syndrome - suspect cardiorenal + DM nephropathy, Nephrology following; monitor renal function- SCr appears to have plateaued # HTN - continue amlodipine. needs better control- increase hydralazine to 75mg tid # hyperK - resolved # ground glass infiltrate - suspect resolving PNA/edema, no mass identified, COVID-19 negative by ROBBIE and PCR # PVD - hold ASA for anemia, continue statin # DM2 - d/c'ed MTF given renal insufficiency and B12 deficiency, continue correction- dose lispro # VTE ppx - SCDs, no heparinoids given FOBT+ # dispo - anticipate STR in next 3d
[2021-01-12] MEDS: Acetaminophen 325 MG TABLET 650 MG PO (16:25)
[2021-01-12 16:43] LABS: Glucose, Whole Blood 206 mg/dL (60-115)
[2021-01-12] MEDS: hydrALAZINE HCl 25 MG TABLET 75 MG PO (20:16)
[2021-01-12] MEDS: Atorvastatin Calcium 40 MG TABLET PO (20:17)
[2021-01-12 20:24] LABS: Glucose, Whole Blood 212 mg/dL (60-115)
[2021-01-13] VITALS (10 sets, daily range): BP systolic 145–183; BP diastolic 64–81; PULSE 77–89; RESP 16–20; TEMP 36.6–37.7; O2SAT 91–97
[2021-01-13] MEDS: Acetaminophen 325 MG TABLET 650 MG PO (04:15)
[2021-01-13 07:44] LABS: Glucose, Whole Blood 163 mg/dL (60-115)
[2021-01-13] MEDS: 0.9 % Sodium Chloride Flush 3 ML SYRINGE IVFLUSH ×2 (07:52→16:35)
[2021-01-13] MEDS: Insulin Lispro 100 UNIT/ML 3 ML VIAL SUBCUT ×3 (07:53→21:09)
[2021-01-13] MEDS: Cyanocobalamin (Vitamin B-12) 1,000 MCG/ML VIAL 1000 MCG IM (07:53)
[2021-01-13] MEDS: amLODIPine Besylate 10 MG TABLET PO (07:56)
[2021-01-13] MEDS: hydrALAZINE HCl 25 MG TABLET 75 MG PO (07:56)
[2021-01-13] MEDS: Gabapentin 300 MG CAPSULE PO (07:57)
[2021-01-13 08:25] LABS: B Type Natriuretic Peptide 678 pg/mL (<100)
[2021-01-13 08:27] LABS: Anion Gap 21 (12-20); Blood Urea Nitrogen 75 mg/dL (9-16); Calcium 8.8 mg/dL (8.4-10.2); Carbon Dioxide 23 mmol/L (22-29); Chloride 99 mmol/L (96-108); Creatinine Clr Calc Pharmacy 14.9; Estimated Glomerular Filt Rate 14; Glucose Random 150 mg/dL (60-115); Magnesium 1.8 mg/dL (1.6-2.6); Potassium 4.1 mmol/L (3.3-5.1); Sodium 139 mmol/L (135-145)
[2021-01-13 11:22] LABS: Glucose, Whole Blood 147 mg/dL (60-115)
--- NOTE | 2021-01-13 11:35 | P.PNCA_ITS ---
Subjective Subjective Date of Service: 01/13/21 Principal diagnosis: CHF, anemia. Interval history: Patient has diuresed well overall 6 L. BNP is down. Not having significant issues with shortness of breath. Laying comfortably. Feels weak Review of Systems Constitutional: Reports weakness Cardiovascular: Reports no additional cardiovascular complaints Respiratory: Reports no additional respiratory complaints Reports system reviewed and no additional complaints, except as documented and Reports weakness Psychiatric: Reports no additional psychiatric complaints Endocrine: Reports no additional endocrine complaints Physical Exam Vital Signs: Last Vital Signs Temp 99.8 F 01/13/21 09:02 Pulse 77 01/13/21 08:00 Resp 16 01/13/21 08:00 BP 166/70 H 01/13/21 08:00 Pulse Ox 95 01/13/21 08:00 Oxygen Flow Rate 4 01/07/21 14:17 Body Mass Index 36.3 Neck Neck: Yes trachea midline, Yes supple and Yes no JVD Resp Effort & Inspection: decreased respiratory effort Auscultation: no rales and diminished lung sounds bilateral (Bases) Cardio Palpation: normal PMI Rate: regular rate Rhythm: regular rhythm Heart sounds: S1 normal heart sound present and S2 normal heart sound present Skin General skin exam: no rashes or lesions noted Extrem General: Yes no clubbing, cyanosis or edema Results Labs and Meds Result diagrams: 01/12/21 06:00 01/13/21 06:20 Lab results: Laboratory Results - last 24 hr 01/12/21 01/12/21 01/13/21 16:40 20:16 06:20 Sodium 139 Potassium 4.1 D Chloride 99 Carbon Dioxide 23 Anion Gap 21 H BUN 75 H Creatinine 3.14 H Estim Creat Clear Calc 14.9 Estimated GFR 14 POC Glucose 206 H 212 H Random Glucose 150 H Calcium 8.8 D Magnesium 1.8 B-Natriuretic Peptide 01/13/21 01/13/21 01/13/21 06:20 07:31 11:17 Sodium Potassium Chloride Carbon Dioxide Anion Gap BUN Creatinine Estim Creat Clear Calc Estimated GFR POC Glucose 163 H 147 H Random Glucose Calcium Magnesium B-Natriuretic Peptide 678 H Progress Note: A&P Assessment and plan (1) Congestive heart failure: Status: Acute Assessment and Plan: Congestive heart failure which has diuresed well doing well. BNP is significantly reduced as well. Switch to p.o. Bumex 2 mg daily. Continue to monitor strict I&Os Q shift. Anemias also improved since transfusion. Is waiti ng anemia workup and possible GI endoscopy. Continue to treat with vitamin B12 and high in. Blood pressure is still not optimized. Increase hydralazine to 100 mg b.i.d.. Continue amlodipine therapy. Continue to monitor BMP and BNP. From cardiac perspective patient can be discharged once stable from medical perspective. Out of bed to chair and PT consult should be considered. Will sign of the case. Thank you for allowing us to partake in the care Fall Risk Details Current Medications: Current Medications Generic Name Dose Route Start Last Admin Trade Name Freq PRN Reason Stop Dose Admin Acetaminophen 650 mg 01/07/21 18:06 01/13/21 04:15 Acetaminophen 325 Mg Tablet PO 650 mg Q6H PRN Administration Pain, Mild (Pain Scale 1-3) Amlodipine Besylate 10 mg 01/08/21 09:00 01/13/21 07:56 Amlodipine Besylate 10 Mg Tablet PO 10 mg DAILY PALOMO Administration Protocol Atorvastatin Calcium 40 mg 01/08/21 21:00 01/12/21 20:17 Atorvastatin Calcium 40 Mg Tablet PO 40 mg BEDTIME [facility] Administration Cyanocobalamin 1,000 mcg 01/08/21 11:00 01/13/21 07:53 Cyanocobalamin (Vitamin B-12) 1,000 Mcg/Ml Vial IM 01/14/21 09:01 1,000 mcg DAILY PALOMO Administration Gabapentin 300 mg 01/08/21 09:00 01/13/21 07:57 Gabapentin 300 Mg Capsule PO 300 mg DAILY [facility]OMO Administration Hydralazine HCl 100 mg 01/13/21 09:00 01/13/21 09:59 Hydralazine Hcl 50 Mg Tablet PO Not Given TID [facility] Protocol Furosemide 200 mg/ Sodium 100 mls @ 2.5 mls/hr 01/09/21 12:00 01/12/21 11:39 Chloride IVCONT 5 mg/hr .Q24H [facility] 2.5 mls/hr Administration 5 MG/HR Insulin Human Lispro 0 unit 01/07/21 18:06 01/13/21 07:53 Insulin Lispro 100 Unit/Ml 3 Ml Vial SUBCUT 2 unit QIDACHS [facility] Administration Protocol Polyethylene Glycol 17 gm 01/11/21 10:52 01/11/21 18:24 Polyethylene Glycol 3350 17 Gm Powd.Pack PO 17 gm DAILY PRN Administration constipation Sodium Chloride 3 ml 01/08/21 00:00 01/13/21 07:52 0.9 % Sodium Chloride Flush 3 Ml Syringe IVFLUSH 3 ml QSHIFT [facility] Administration Time Spent With Patient Time: Total time spent is greater than 50% in coordination of care (as documented) at patient's floor/unit and/or counseling patient: Time with patient: 15 - 24 minutes Procedures Date of Service Date of Service: 01/13/21
[2021-01-13] MEDS: hydrALAZINE HCl 50 MG TABLET 100 MG PO ×2 (14:29→21:09)
[2021-01-13] MEDS: Lactulose 20 GM/30 ML SOLUTION PO (14:29)
[2021-01-13] MEDS: Bumetanide 1 MG TABLET PO (14:29)
[2021-01-13] MEDS: polyethylene glycoL 3350 17 GM POWD.PACK PO (14:29)
--- NOTE | 2021-01-13 15:48 | P.PNIM_ITS ---
Subjective Subjective Date of Service: 01/13/21 Interval History: continues to improve- less dyspneic no lightheadedness No conner hematochezia or melena Good appetite Physical Exam Vital Signs: Vital Signs: Last Vital Signs Temp 98.2 F 01/13/21 12:00 Pulse 77 01/13/21 14:29 Resp 20 01/13/21 12:00 BP 145/66 H 01/13/21 14:29 Pulse Ox 92 01/13/21 14:37 Oxygen Flow Rate 4 01/07/21 14:17 Body Mass Index 36.3 Gen: in no acute distress HEENT: sclera anicteric, moist mucus membranes Neck: supple Lungs: diminished bilaterally, inspiratory crackles at bases Heart: regular rate and rhythm, no murmurs Abd: soft, non-tender, non-distended Ext: trace edema bilateral legs Skin: warm/well-perfused Neuro: alert and oriented x3, no focal findings Psych: appropriate affect Objective Data Current Medications Generic Name Dose Route Start Last Admin Trade Name Freq PRN Reason Stop Dose Admin Acetaminophen 650 mg 01/07/21 18:06 01/13/21 04:15 Acetaminophen 325 Mg Tablet PO 650 mg Q6H PRN Administration Pain, Mild (Pain Scale 1-3) Amlodipine Besylate 10 mg 01/08/21 09:00 01/13/21 07:56 Amlodipine Besylate 10 Mg Tablet PO 10 mg DAILY [facility]O Administration Protocol Atorvastatin Calcium 40 mg 01/08/21 21:00 01/12/21 20:17 Atorvastatin Calcium 40 Mg Tablet PO 40 mg BEDTIME [facility] Administration Bumetanide 1 mg 01/13/21 13:00 01/13/21 14:29 Bumetanide 1 Mg Tablet PO 1 mg DAILY [facility] Administration Protocol Cyanocobalamin 1,000 mcg 01/08/21 11:00 01/13/21 07:53 Cyanocobalamin (Vitamin B-12) 1,000 Mcg/Ml Vial IM 01/14/21 09:01 1,000 mcg DAILY [facility]OMO Administration Gabapentin 300 mg 01/08/21 09:00 01/13/21 07:57 Gabapentin 300 Mg Capsule PO 300 mg DAILY [facility] Administration Hydralazine HCl 100 mg 01/13/21 09:00 01/13/21 14:29 Hydralazine Hcl 50 Mg Tablet PO 100 mg TID [facility] Administration Protocol Insulin Human Lispro 0 unit 01/07/21 18:06 01/13/21 11:49 Insulin Lispro 100 Unit/Ml 3 Ml Vial SUBCUT Not Given QIDACHS [facility] Protocol Lactulose 20 gm 01/13/21 12:30 01/13/21 14:29 Lactulose 20 Gm/30 Ml Solution PO 20 gm BID PRN Administration constipation Polyethylene Glycol 17 gm 01/11/21 10:52 01/13/21 14:29 Polyethylene Glycol 3350 17 Gm Powd.Pack PO 17 gm DAILY PRN Administration constipation Sodium Chloride 3 ml 01/08/21 00:00 01/13/21 07:52 0.9 % Sodium Chloride Flush 3 Ml Syringe IVFLUSH 3 ml QSHIFT [facility] Administration Labs CBC & Chem 7: 01/12/21 06:00 01/13/21 06:20 Microbiology Microbiology Results: Microbiology 01/07/21 16:14 Blood - Venous Blood Culture - Final No growth after 5 days. 01/07/21 14:35 Blood - Venous Blood Culture - Final No growth after 5 days. Assessment and Plan (1) Hypoxia: Status: Acute (2) Anemia: Status: Acute (3) Chronic renal insufficiency: Status: Acute (4) CKD (chronic kidney disease): Status: Acute Assessment and Plan: hospital d#7 for this 80yo F with diastolic CHF, CKD4, HTN, DM2 presented with dyspnea admitted with hypoxia, anemia much of which is chronic though FOBT+ and also found to have profound B12 deficiency; superimposed NAHID # acute/chronic HFpEF - close to euvolemic, negative 6.6L this admission; change furosemide IV gtt to PO bumetanide # acute hypoxic resp failure - wean O2 as tolerated # anemia, multifactorial- GI bleed [FOBT+], B12 deficiency, CKD - GI consult appreciated, plan EGD + C-scope likely Friday; in meanwhile, will give IV PPI empirically - transfused 1u pRBCs 01/07, 2u pRBCs 01/09, 2u pRBCs 01/10 with appropriate response in Hb # B12 deficiency anemia - sent anti-IF, giving parenteral replacement with 1000 mcg daily 01/08-01/14, then weekly x4wk, then monthly # monoclonal gammopathy - YAMEL shows IgG lambda monoclonal band; will consult Heme/Onc # NAHID/CKD4 # nephrotic syndrome - suspect cardiorenal + DM nephropathy, Nephrology following; monitor renal function- SCr appears to have plateaued # HTN - continue amlodipine. needs better control- increase hydralazine to 100mg tid # hyperK - resolved # ground glass infiltrate - suspect resolving PNA/edema, no mass identified, COVID-19 negative by ROBBIE and PCR # PVD - hold ASA for anemia, continue statin # DM2 - d/c'ed MTF given renal insufficiency and B12 deficiency, continue correction-d ose lispro # stage 1 injury to coccyx - frequent turning, monitor skin # VTE ppx - SCDs, no heparinoids given FOBT+ # dispo - anticipate STR in next 3d
--- NOTE | 2021-01-13 15:57 | P.PNNP_ITS ---
Subjective Subjective Date of Service: 01/13/21 Principal diagnosis: CHF, anemia. Interval history: diuresing well. Cr stable Physical Exam Vital Signs: Vital Signs: Last Vital Signs Temp 98.2 F 01/13/21 12:00 Pulse 77 01/13/21 14:29 Resp 20 01/13/21 12:00 BP 145/66 H 01/13/21 14:29 Pulse Ox 92 01/13/21 14:37 Oxygen Flow Rate 4 01/07/21 14:17 Body Mass Index 36.3 Const: General: cooperative, comfortable, no acute distress, alert, awake, acute distress mild and respiratory and tired appearing Nutritional Appearance: obese Orientation/consciousness: patient oriented x3 Limitations: physical limitations HENMT: Head: Yes normocephalic and Yes atraumatic Eyes: EOM: EOMs intact bilaterally Neck: Neck: Yes trachea midline, Yes supple, Yes JVD and Yes no JVD Resp: Effort & Inspection: normal respiratory effort and decreased respiratory effort Auscultation: crackles, no rales, breath sounds absent bilateral and diminished lung sounds bilateral (Bases) Cardio: Jugular venous distension: JVD Palpation: normal PMI Rate: regular rate Rhythm: regular rhythm Heart sounds: S1 normal heart sound present and S2 normal heart sound present GI: Palpation (GI): Soft to palpation Auscultation: normal bowel sounds Skin: General skin exam: no rashes or lesions noted Neuro: General: patient oriented x3, moves all extremities and no focal motor deficits Extrem: General: Yes no clubbing, cyanosis or edema, No clubbing, No cyanosis and Yes edema Psych: Appearance: grossly normal Objective Data Labs CBC & Chem 7: 01/12/21 06:00 01/13/21 06:20 Labs: Laboratory Results - last 24 hr 01/12/21 01/12/21 01/13/21 16:40 20:16 06:20 Sodium 139 Potassium 4.1 D Chloride 99 Carbon Dioxide 23 Anion Gap 21 H BUN 75 H Creatinine 3.14 H Estim Creat Clear Calc 14.9 Estimated GFR 14 POC Glucose 206 H 212 H Random Glucose 150 H Calcium 8.8 D Magnesium 1.8 B-Natriuretic Peptide 01/13/21 01/13/21 01/13/21 06:20 07:31 11:17 Sodium Potassium Chloride Carbon Dioxide Anion Gap BUN Creatinine Estim Creat Clear Calc Estimated GFR POC Glucose 163 H 147 H Random Glucose Calcium Magnesium B-Natriuretic Peptide 678 H Microbiology Microbiology Results: Microbiology 01/07/21 16:14 Blood - Venous Blood Culture - Final No growth after 5 days. 01/07/21 14:35 Blood - Venous Blood Culture - Final No growth after 5 days. Assessment & Plan Assessment and plan (1) CKD (chronic kidney disease): Status: Acute Assessment and Plan: NAHID due to Acute on chronic diastolic CHF and symptomatic anemia with Cardio renal syndrome- improved/stable Continue diuresis/supportive care; No indication for renal replacement; Shall continue to closely follow up. Labs AM Time Spent With Patient Time: Total time spent is greater than 50% in coordination of care (as document ed) at patient's floor/unit and/or counseling patient: Procedures Date of Service Date of Service: 01/13/21
[2021-01-13 16:25] LABS: Glucose, Whole Blood 203 mg/dL (60-115)
[2021-01-13 20:27] LABS: Glucose, Whole Blood 218 mg/dL (60-115)
[2021-01-13] MEDS: Atorvastatin Calcium 40 MG TABLET PO (21:09)
[2021-01-13 22:32] LABS: Intrinsic Factor Antibodies Negative (Negative)
[2021-01-14] VITALS (8 sets, daily range): BP systolic 133–161; BP diastolic 63–83; PULSE 72–88; RESP 18–20; TEMP 36.4–37.1; O2SAT 91–98
[2021-01-14] MEDS: 0.9 % Sodium Chloride Flush 3 ML SYRINGE IVFLUSH ×2 (00:04→17:20)
[2021-01-14 07:16] LABS: Glucose, Whole Blood 139 mg/dL (60-115)
[2021-01-14] MEDS: Acetaminophen 325 MG TABLET 650 MG PO (08:01)
[2021-01-14] MEDS: Lactulose 20 GM/30 ML SOLUTION PO (08:01)
[2021-01-14] MEDS: Cyanocobalamin (Vitamin B-12) 1,000 MCG/ML VIAL 1000 MCG IM (08:01)
[2021-01-14] MEDS: polyethylene glycoL 3350 17 GM POWD.PACK PO (08:01)
[2021-01-14] MEDS: amLODIPine Besylate 10 MG TABLET PO (08:02)
[2021-01-14] MEDS: Gabapentin 300 MG CAPSULE PO (08:02)
[2021-01-14] MEDS: Bumetanide 1 MG TABLET PO (08:02)
[2021-01-14] MEDS: hydrALAZINE HCl 50 MG TABLET 100 MG PO ×3 (08:02→20:11)
[2021-01-14 11:56] LABS: Glucose, Whole Blood 164 mg/dL (60-115)
[2021-01-14] MEDS: Insulin Lispro 100 UNIT/ML 3 ML VIAL SUBCUT (12:13)
[2021-01-14] MEDS: Pregabalin 25 MG CAPSULE PO ×2 (12:13→20:11)
--- NOTE | 2021-01-14 14:44 | P.PNNP_ITS ---
Subjective Subjective Date of Service: 01/14/21 Principal diagnosis: CHF, anemia. Interval history: on PO Bumex now doing well mostly net even balance no labs drawn today Physical Exam Vital Signs: Vital Signs: Last Vital Signs Temp 97.7 F 01/14/21 12:00 Pulse 72 01/14/21 14:37 Resp 20 01/14/21 12:00 BP 145/67 H 01/14/21 14:37 Pulse Ox 92 01/14/21 12:00 Oxygen Flow Rate 4 01/07/21 14:17 Body Mass Index 36.3 Const: General: cooperative, comfortable, no acute distress, alert, awake, acute distress mild and respiratory and tired appearing Nutritional Appearance: obese Orientation/consciousness: patient oriented x3 Li mitations: physical limitations HENMT: Head: Yes normocephalic and Yes atraumatic Eyes: EOM: EOMs intact bilaterally Neck: Neck: Yes trachea midline, Yes supple, Yes JVD and Yes no JVD Resp: Effort & Inspection: normal respiratory effort and decreased respiratory effort Auscultation: crackles, no rales, breath sounds absent bilateral and diminished lung sounds bilateral (Bases) Cardio: Jugular venous distension: JVD Palpation: normal PMI Rate: regular rate Rhythm: regular rhythm Heart sounds: S1 normal heart sound present and S2 normal heart sound present GI: Palpation (GI): Soft to palpation Auscultation: normal bowel sounds Skin: General skin exam: no rashes or lesions noted Neuro: General: patient oriented x3, moves all extremities and no focal motor deficits Extrem: General: Yes no clubbing, cyanosis or edema, No clubbing, No cyanosis and Yes edema Psych: Appearance: grossly normal Objective Data Labs CBC & Chem 7: 01/12/21 06:00 01/13/21 06:20 Labs: Laboratory Results - last 24 hr 01/08/21 01/13/21 01/13/21 11:25 16:19 20:24 POC Glucose 203 H 218 H Intrinsic Factor Ab Negative 01/14/21 01/14/21 07:11 11:52 POC Glucose 139 H 164 H Intrinsic Factor Ab Microbiology Microbiology Results: Microbiology 01/07/21 16:14 Blood - Venous Blood Culture - Final No growth after 5 days. 01/07/21 14:35 Blood - Venous Blood Culture - Final No growth after 5 days. Assessment & Plan Assessment and plan (1) CKD (chronic kidney disease): Status: Acute Assessment and Plan: NAHID due to Acute on chronic diastolic CHF and symptomatic anemia with Cardio renal syndrome- improved/stable monitor I/Os now on PO bumex renal panel daily. Time Spent With Patient Time: Total time spent is greater than 50% in coordination of care (as documented) at patient's floor/unit and/or counseling patient: Procedures Date of Service Date of Service: 01/14/21
--- NOTE | 2021-01-14 14:59 | HO.PM.IMPN ---
Subjective Subjective Date of Service: 01/14/21 Interval History: off O2 now, dyspnea resolved no chest pain c/o neuropathic pain of feet Physical Exam Vital Signs: Vital Signs: Last Vital Signs Temp 97.7 F 01/14/21 12:00 Pulse 72 01/14/21 14:37 Resp 20 01/14/21 12:00 BP 145/67 H 01/14/21 14:37 Pulse Ox 92 01/14/21 12:00 Body Mass Index 36.3 Gen: in no acute distress HEENT: sclera anicteric, moist mucus membranes Neck: supple Lungs: diminished bilaterally Heart: regular rate and rhythm, no murmurs Abd: soft, non-tender, non-distended Ext: trace edema bilateral legs Skin: warm/well-perfused Neuro: alert and oriented x3, no focal findings Psych: appropriate affect Objective Data Current Medications Generic Name Dose Route Start Last Admin Trade Name Freq PRN Reason Stop Dose Admin Acetaminophen 650 mg 01/07/21 18:06 01/14/21 08:01 Acetaminophen 325 Mg Tablet PO 650 mg Q6H PRN Administration Pain, Mild (Pain Scale 1-3) Amlodipine Besylate 10 mg 01/08/21 09:00 01/14/21 08:02 Amlodipine Besylate 10 Mg Tablet PO 10 mg DAILY [facility]O Administration Protocol Atorvastatin Calcium 40 mg 01/08/21 21:00 01/13/21 21:09 Atorvastatin Calcium 40 Mg Tablet PO 40 mg BEDTIME [facility] Administration Bisacodyl 20 mg 01/14/21 18:45 Bisacodyl 5 Mg Tablet.Dr PO 01/14/21 18:46 ONCE ONE Bumetanide 1 mg 01/13/21 13:00 01/14/21 08:02 Bumetanide 1 Mg Tablet PO 1 mg DAILY [facility] Administration Protocol Hydralazine HCl 100 mg 01/13/21 09:00 01/14/21 14:37 Hydralazine Hcl 50 Mg Tablet PO 100 mg TID [facility] Administration Protocol Insulin Human Lispro 0 unit 01/07/21 18:06 01/14/21 12:13 Insulin Lispro 100 Unit/Ml 3 Ml Vial SUBCUT 2 unit QIDACHS [facility] Administration Protocol Lactulose 20 gm 01/13/21 12:30 01/14/21 08:01 Lactulose 20 Gm/30 Ml Solution PO 20 gm BID PRN Administration constipation Polyethylene Glycol 17 gm 01/11/21 10:52 01/14/21 08:01 Polyethylene Glycol 3350 17 Gm Powd.Pack PO 17 gm DAILY PRN Administration constipation Polyethylene Glycol/Electrolytes 4,000 ml 01/14/21 20:00 Peg 3350/Na Sulf,Bicarb,Cl/Kcl 4,000 Ml Soln.Recon PO 01/14/21 20:01 ONCE ONE Pregabalin 25 mg 01/14/21 11:00 01/14/21 12:13 Pregabalin 25 Mg Capsule PO 25 mg BID [facility] Administration Sodium Chloride 3 ml 01/08/21 00:00 01/14/21 14:54 0.9 % Sodium Chloride Flush 3 Ml Syringe IVFLUSH Not Given QSHIFT [facility] Labs CBC & Chem 7: 01/12/21 06:00 01/13/21 06:20 Labs: Laboratory Results - last 24 hr 01/08/21 01/13/21 01/13/21 11:25 16:19 20:24 POC Glucose 203 H 218 H Intrinsic Factor Ab Negative 01/14/21 01/14/21 07:11 11:52 POC Glucose 139 H 164 H Intrinsic Factor Ab Microbiology Microbiology Results: Microbiology 01/07/21 16:14 Blood - Venous Blood Culture - Final No growth after 5 days. 01/07/21 14:35 Blood - Venous Blood Culture - Final No growth after 5 days. Assessment and Plan (1) Hypoxia: Status: Acute (2) Anemia: Status: Acute (3) Chronic renal insufficiency: Status: Acute (4) CKD (chronic kidney disease): Status: Acute Assessment and Plan: hospital d#8 for this 80yo F with diastolic CHF, CKD4, HTN, DM2 presented with dyspnea admitted with hypoxia, anemia much of which is chronic though FOBT+ and also found to have profound B12 deficiency; superimposed NAHID # acute/chronic HFpEF - now euvolemic; changed furosemide IV gtt to PO bumetanide 01/13/21; overall -6L this admission # acute hypoxic resp failure - resolved # anemia, multifactorial- GI bleed [FOBT+], B12 deficiency, CKD - GI following, on clear liquids today and will start bowel prep tonight; plan EGD + C-scope tomorrow; continue empiric PPI - transfused 1u pRBCs 01/07, 2u pRBCs 01/09, 2u pRBCs 01/10 with appropriate response in Hb # B12 deficiency anemia - IF Ab negative. started parenteral replacement with 1000 mcg daily 01/08-01/14, then weekly x4wk, then monthly- can be done at rehab or by [facility] # monoclonal gammopathy - YAMEL shows IgG lambda monoclonal band; Heme/Onc consult requested # NAHID/CKD4 # nephrotic syndrome - due to cardiorenal syndrome superimposed upon DM nephropathy. Nephrology following; monitor renal function- SCr appears to have plateaued- new baseline? # HTN - continue amlodipine. Continue hydralazine titrated up to 100 mg t.i.d. this admission # hyperK - resolved # ground glass infiltrate - suspect resolving PNA/edema, no mass identified, COVID-19 negative by ROBBIE and PCR, respiratory issues resolved # PVD - hold ASA for anemia, continue statin # DM2 - d/c'ed MTF given renal insufficiency and B12 deficiency, continue correction-dose lispro # stage 1 injury to coccyx - frequent turning, monitor skin # VTE ppx - SCDs, no heparinoids given FOBT+ # dispo - anticipate STR Tu
[2021-01-14 16:43] LABS: Glucose, Whole Blood 120 mg/dL (60-115)
[2021-01-14] MEDS: bisacodyL 5 MG TABLET.DR 20 MG PO (17:48)
[2021-01-14] MEDS: PEG 3350/Na Sulf,Bicarb,Cl/KCL 4,000 ML SOLN.RECON 4000 ML PO (18:59)
[2021-01-14] MEDS: Atorvastatin Calcium 40 MG TABLET PO (20:11)
[2021-01-14 20:36] LABS: Glucose, Whole Blood 175 mg/dL (60-115)
[2021-01-15] VITALS (11 sets, daily range): BP systolic 132–164; BP diastolic 60–76; PULSE 81–87; RESP 16–20; TEMP 36.6–37.3; O2SAT 91–97
[2021-01-15] MEDS: 0.9 % Sodium Chloride Flush 3 ML SYRINGE IVFLUSH ×4 (00:42→21:11)
[2021-01-15 07:29] LABS: Glucose, Whole Blood 133 mg/dL (60-115)
[2021-01-15] MEDS: Pregabalin 25 MG CAPSULE PO (08:56)
[2021-01-15] MEDS: Bumetanide 1 MG TABLET PO (08:56)
[2021-01-15] MEDS: hydrALAZINE HCl 50 MG TABLET 100 MG PO (08:56)
[2021-01-15] MEDS: amLODIPine Besylate 10 MG TABLET PO (08:57)
[2021-01-15] MEDS: Acetaminophen 325 MG TABLET 650 MG PO (10:04)
[2021-01-15 11:02] LABS: Glucose, Whole Blood 125 mg/dL (60-115)
--- NOTE | 2021-01-15 11:14 | MHC.CM.PN ---
Per ROUNDS discussion, Patient is being scoped today and not yet medically cleared for dc. Plan for dc is home/resume Foster care setting/services vs STR. CM will follow for dc planning.
--- NOTE | 2021-01-15 11:28 | PM.PNNEP ---
Subjective Subjective Date of Service: 01/15/21 Principal diagnosis: CHF, anemia. Interval history: Events noted. All recent data reviewed Physical Exam Vital Signs: Vital Signs: Last Vital Signs Temp 99.2 F 01/15/21 07:24 Pulse 87 01/15/21 08:57 Resp 18 01/15/21 07:24 BP 153/71 H 01/15/21 08:57 Pulse Ox 91 L 01/15/21 07:24 Oxygen Flow Rate 4 01/07/21 14:17 Body Mass Index 36.3 Const: General: no acute distress Orientation/consciousness: patient oriented x3 Eyes: EOM: EOMs intact bilaterally Neck: Neck: Yes supple Resp: Auscultation: diminished lung sounds Cardio: Jugular venous distension: no JVD GI: Palpation (GI): Soft to palpation Neuro: General: patient oriented x3 Objective Data Labs CBC & Chem 7: 01/12/21 06:00 01/13/21 06:20 Labs: Laboratory Results - last 24 hr 01/14/21 01/14/21 01/14/21 11:52 16:39 20:32 POC Glucose 164 H 120 H 175 H 01/15/21 01/15/21 07:24 10:59 POC Glucose 133 H 125 H Microbiology Microbiology Results: Microbiology 01/07/21 16:14 Blood - Venous Blood Culture - Final No growth after 5 days. 01/07/21 14:35 Blood - Venous Blood Culture - Final No growth after 5 days. Assessment & Plan Assessment and plan (1) Chronic renal insufficiency: Status: Acute Assessment and Plan: NAHID due to Acute on chronic diastolic CHF and symptomatic anemia with Cardio renal syndrome- improved/stable Continue current supportive care; Shall arrange close office follow up when D/Freddy Time Spent With Patient Time: Total time spent is greater than 50% in coordination of care (as documented) at patient's floor/unit and/or counseling patient: Procedures Date of Service Date of Service: 01/15/21
--- NOTE | 2021-01-15 11:45 | MHC.SHP ---
Pre-Procedural Eval Section A The patient is an INPATIENT: Yes The History & Physical has been completed within 30 days and I have reviewed it.: Yes Section B Chief Complaint: Anemia, CHF, Acute hypoxic respiratory failure Allergies: Allergies Allergy/AdvReac Type Severity Reaction Status Date / Time Iodinated Contrast Media Allergy Unknown UNKNOWN Verified 12/26/20 13:27 [IODINATED CONTRAST MEDIA] Plan Diagnosis/Plan: Unchanged I have reviewed the history and physical and performed a pertinent physical examination on my patient. No changes have occurred unless specified. EGD/colonoscopy for anemia work up
--- NOTE | 2021-01-15 11:46 | PM.OP ---
Brief Operative Note Date of Service: 01/15/21 Pre-op diagnosis: anemia Post-op diagnosis: same Procedure: see op note Surgeon: Garrett Sharma MD Anesthesia: MAC Was an Buffer Machine used for this Procedure?: No Estimated blood loss (mL): 0 Condition: stable Disposition: PACU
--- NOTE | 2021-01-15 11:46 | W.PM.OPN ---
Operative Note Operative Note Date of Service: 01/15/21 Narrative: Operative Information Procedure Description: EGD, Colonoscopy FLEXIBLE TRANSORAL UPPER GASTROINTESTINAL ENDOSCOPY AND COLONOSCOPY PROCEDURE NOTE UPPER ENDOSCOPY Consent: Indications for the procedure and potential complications of bleeding, perforation, reaction to medications and missed diagnosis were discussed with the patient and informed consent was obtained. Instrument: Olympus GIF H 190 J mid size upper endoscope Monitoring: Vital signs and clinical assessment, continuous EKG monitoring, Pulse oximetry, Carbon Dioxide monitoring and blood pressure monitoring were done throughout the procedure. Procedure: The patient was placed in the left lateral decubitis position and pre-procedure medications were administered and a bite block was placed. The endoscope was inserted into the mouth and advanced under direct vision to the third part of duodenum. A careful inspection was made as the upper endoscope was withdrawn including a retroflexed examination of the proximal stomach; Findings and interventions are described below. Findings: Larynx:normal Esophagus: GE junction at 40 cm, diaphragm hiatus at 40 cm, LA grade A esophagitis at GEJ Stomach: Patchy gastritis with few flecks of altered blood noted. Biopsies were obtained. Grade 2 flap valve on retroflexed examination of the cardia. Duodenum: Duodenitis with ulceration and erosions noted, bx taken, no active bleeding Intervention: Biopsies as noted above COLONOSCOPY Instrument: Olympus variable stiffness pediatric scope 190L Colonoscopy Monitoring: Vital signs and clinical assessment, continuous EKG monitoring, Pulse oximetry, Carbon Dioxide monitoring and blood pressure monitoring were done throughout the procedure. Procedure: The patient was placed in the left lateral decubitis position and pre-procedure medications were administered. After a digital rectal examination of the ano-rectum, the video colonoscope was inserted into the rectum and advanced through the colon to the ascending colon The colonoscope was slowly withdrawn in a retrograde panoramic fashion and the colon mucosa was carefully examined including a retroflexed view of the rectum. Findings and interventions are described below. Procedure Difficulty:moderate due to poor prep and looping Findings: Terminal Ileum-not seen Cecum:not seen due to poor prep Ascending Colon: 7-8 mm sessile polyp removed with forceps, few wide mouthed diverticula seen Transverse Colon -normal Descending Colon:normal Sigmoid Colon: diverticulosis noted Rectum: Retroflexion with moderate sized internal hemorrhoids, grade I Anorectum - normal normal stool, no blood seen in colon Colon preparation: [place] Bowel Preparation Scale Right colon; 1 Transverse colon: 1 Left colon; 1 (0 = Unprepared colon segment with mucosa not seen due to solid stool that cannot be cleared. 1 = Portion of mucosa of the colon segment seen, but other areas of the colon segment not well seen due to staining, residual stool and/or opaque liquid. 2 = Minor amount of residual staining, small fragments of stool and/or opaque liquid, but mucosa of colon segment seen well. 3 = Entire mucosa of colon segment seen well with no residual staining, small fragments of stool or opaque liquid) Impression and Post Procedure Diagnosis: Endoscopy Findings: duodenitis, erosions, ulceration gastritis esophagitis Colonoscopy Findings: polyps internal hemorrhoids diverticular disease Plan: Await Pathology results Repeat Colonoscopy in 6-12 months with attention to prep (NEXT TIME USE ADULT SCOPE) High fiber diet leaflet avoid straining at stool, epsom salts and sitz bath, anusol supps or cream as needed pantoprazole 40 mg OD, if h pylori pos then treat, her anemia is likely 2/2 duduodenal ucleration and erosion. Above findings were reviewed with the patient and relevant handouts were provided if indicated.
--- NOTE | 2021-01-15 11:49 | HO.ANESPROP2 ---
[facility] Active Problems Active Problems: All Active Problems (Updated 01/11/21 @ 14:18 by Cheyenne Cano MD) Congestive heart failure (Acute) Acute respiratory failure with hypoxia (Acute) Anemia (Acute) Hypoxia (Acute) Chronic renal insufficiency (Acute) CKD (chronic kidney disease) (Acute) Femoral artery stenosis (Acute) Lower extremity edema (Acute) PVD (peripheral vascular disease) (Acute) High cholesterol (Acute) Hypertension (Acute) Diabetes (Acute) Past Medical History Medical History CKD (chronic kidney disease) Diabetes Femoral artery stenosis High cholesterol Hypertension Lower extremity edema Psoriasis of scalp PVD (peripheral vascular disease) Family History Family History Father No problems noted. Mother No problems noted. Surgical History Surgical History History of female sterilization History of shoulder surgery Social History Social History Household Members: Children Household Members Other:: Daughter Housing: House Do you presently have visiting nurse or other home services: No Alcohol intake: never Smoking Status: Never smoker Use of substances other than those prescribed or required for medical reasons: No Currently Displaying Signs/Symptoms of Drug Intoxication Withdrawal: No Have you been hit, kicked, punched, or otherwise hurt by someone within the past year? If so, by whom?: No Do you feel safe in your current relationship?: No Is there a partner from a previous relationship who is making you feel unsafe now?: No Are you made to feel afraid or neglected: No Advance Directives: Yes Advance Directives Information Provided: Yes Advance Directives on File: No Advance Directives Date on File: 01/08/21 Do you have thoughts of harming others: None Do you have a plan to hurt others: No Plan Recently lost weight without trying: No Eating poorly because of decreased appetite: No Nutrition Risks: No Nutritional Risk Patient : No : No Poor oral hygiene: No service: No Current occupational status: retired and disabled Meds Allergies Allergy/AdvReac Type Severity Reaction Status Date / Time Iodinated Contrast Media Allergy Unknown UNKNOWN Verified 12/26/20 13:27 [IODINATED CONTRAST MEDIA] Active Medications: Current Medications Generic Name Dose Route Start Last Admin Trade Name Moralesq PRN Reason Stop Dose Admin Acetaminophen 650 mg 01/07/21 18:06 01/15/21 10:04 Acetaminophen 325 Mg Tablet PO 650 mg Q6H PRN Administration Pain, Mild (Pain Scale 1-3) Amlodipine Besylate 10 mg 01/08/21 09:00 01/15/21 08:57 Amlodipine Besylate 10 Mg Tablet PO 10 mg DAILY PALOMO Administration Protocol Atorvastatin Calcium 40 mg 01/08/21 21:00 01/14/21 20:11 Atorvastatin Calcium 40 Mg Tablet PO 40 mg BEDTIME PALOMO Administration Bumetanide 1 mg 01/13/21 13:00 01/15/21 08:56 Bumetanide 1 Mg Tablet PO 1 mg DAILY PALOMO Administration Protocol Hydralazine HCl 100 mg 01/13/21 09:00 01/15/21 08:56 Hydralazine Hcl 50 Mg Tablet PO 100 mg TID PALOMO Administration Protocol Insulin Human Lispro 0 unit 01/07/21 18:06 01/15/21 11:14 Insulin Lispro 100 Unit/Ml 3 Ml Vial SUBCUT [facility] Protocol Lactulose 20 gm 01/13/21 12:30 01/14/21 08:01 Lactulose 20 Gm/30 Ml Solution PO 20 gm BID PRN Administration constipation Polyethylene Glycol 17 gm 01/11/21 10:52 01/14/21 08:01 Polyethylene Glycol 3350 17 Gm Powd.Pack PO 17 gm DAILY PRN Administration constipation Pregabalin 25 mg 01/14/21 11:00 01/15/21 08:56 Pregabalin 25 Mg Capsule PO 25 mg BID PALOMO Administration Sodium Chloride 3 ml 01/08/21 00:00 01/15/21 08:57 0.9 % Sodium Chloride Flush 3 Ml Syringe IVFLUSH 3 ml QSHIFT [facility] Administration Home Medications Medication Instructions Recorded Confirmed Last Taken Type amlodipine 10 mg PO DAILY 01/07/21 01/07/21 Unknown History aspirin 81 mg PO DAILY 01/07/21 01/07/21 Unknown History atorvastatin 40 mg PO DAILY 01/07/21 01/07/21 Unknown History chlorthalidone 25 mg PO DAILY 01/07/21 01/07/21 Unknown History gabapentin 300 mg PO DAILY 01/07/21 01/07/21 Unknown History losartan 100 mg PO DAILY 01/07/21 01/07/21 Unknown History metformin 1,000 mg PO BID 01/07/21 01/07/21 Unknown History Exam Exam Date and Time: January 15, 2021 1149 Height,Weight and Vital Signs: Height 5 ft 2 in Weight 90 kg Last Vital Signs Temp 98.2 F 01/15/21 11:42 Pulse 83 01/15/21 11:42 Resp 16 01/15/21 11:42 BP 146/61 H 01/15/21 11:42 Pulse Ox 93 01/15/21 11:42 Oxygen Flow Rate 4 01/07/21 14:17 Pertinent Lab Results Pertinent Lab Results: Laboratory Tests 01/07/21 01/07/21 01/07/21 14:34 14:34 14:34 WBC 8.4 RBC 2.28 L Hgb 6.5 L* Hct 20.8 L* MCV 91.2 MCH 28.5 MCHC 31.3 RDW 15.9 Plt Count 334 MPV 10.8 Immature Gran % (Auto) 0.6 H Neut % (Auto) 84.2 H Lymph % (Auto) 9.6 L [place] % (Auto) 5.3 Eos % (Auto) 0.1 Baso % (Auto) 0.2 Lymph # (Auto) 0.8 L [place] # (Auto) 0.5 Eos # (Auto) 0.0 Baso # (Auto) 0.0 Abs Immat Gran (auto) 0.05 H Absolute Neuts (auto) 7.1 Absolute Nucleated RBC 0.000 Nucleated RBC % (auto) 0.0 Smear Path Review SEE NOTE Absolute Retic Percent Retic Immature Retic Fraction Retic Hgb Equivalent Sodium 140 Potassium 5.5 H Chloride 106 Carbon Dioxide 17 L Anion Gap 23 H BUN 65 H D Creatinine 3.41 H Estim Creat Clear Calc 13.7 Estimated GFR 13 POC Glucose Random Glucose 268 H Lactic Acid 3.4 H* Lactic Acid Fup @ 2Hr Calcium 9.0 Magnesium Iron 27 L TIBC 286 % Saturation 9 L Unsat Iron Binding 259 Ferritin 36 Total Bilirubin 0.3 Direct Bilirubin < 0.2 AST 13 ALT 11 Alkaline Phosphatase 83 Lactate Dehydrogenase Troponin I High Sens B-Natriuretic Peptide Total Protein 6.9 Albumin 3.7 Lipase 28 Vitamin B12 Folate Stool Occult Blood IgG Total IgA Total IgM YAMEL Interpretation Intrinsic Factor Ab Respiratory Panel [place] Adenovirus (Rapid PCR) B.pert (TEM-PCR) B.parapertussis DNA PCR C. pneumoniae DNA (PCR) Coronavirus OC43 (PCR) Coronavirus HKU1 (PCR) Coronavirus 229E (PCR) COVID-19 (ROBBIE) COVID-19 Clin Com Coronavirus NL63 (PCR) Human Metapneumovir PCR Influenza A (RT-PCR) Influenza B (RT-PCR) M. pneumoniae (PCR) Parainfluenza 1 (PCR) Parainfluenza 2 (PCR) Parainfluenza 3 (PCR) Parainfluenza 4 (PCR) RSV (PCR) Entero/Rhino (PCR) SARS-CoV-2 RNA (RT-PCR) SARS-CoV-2 IgG Ab Blood Type Antibody Screen Crossmatch 01/07/21 01/07/21 01/07/21 14:34 14:35 14:50 WBC RBC Hgb Hct MCV MCH MCHC RDW Plt Count MPV Immature Gran % (Auto) Neut % (Auto) Lymph % (Auto) [place] % (Auto) Eos % (Auto) Baso % (Auto) Lymph # (Auto) [place] # (Auto) Eos # (Auto) Baso # (Auto) Abs Immat Gran (auto) Absolute Neuts (auto) Absolute Nucleated RBC Nucleated RBC % (auto) Smear Path Review Absolute Retic Percent Retic Immature Retic Fraction Retic Hgb Equivalent Sodium Potassium Chloride Carbon Dioxide Anion Gap BUN Creatinine Estim Creat Clear Calc Estimated GFR POC Glucose Random Glucose Lactic Acid Lactic Acid Fup @ 2Hr Calcium Magnesium Iron TIBC % Saturation Unsat Iron Binding Ferritin Total Bilirubin Direct Bilirubin AST ALT Alkaline Phosphatase Lactate Dehydrogenase Troponin I High Sens 79.6 H B-Natriuretic Peptide 1509 H Total Protein Albumin Lipase Vitamin B12 Folate Stool Occult Blood POSITIVE IgG Total IgA Total IgM YAMEL Interpretation Intrinsic Factor Ab Respiratory Panel [place] Adenovirus (Rapid PCR) B.pert (TEM-PCR) B.parapertussis DNA PCR C. pneumoniae DNA (PCR) Coronavirus OC43 (PCR) Coronavirus HKU1 (PCR) Coronavirus 229E (PCR) COVID-19 (ROBBIE) Negative COVID-19 Clin Com See Note Coronavirus NL63 (PCR) Human Metapneumovir PCR Influenza A (RT-PCR) Influenza B (RT-PCR) M. pneumoniae (PCR) Parainfluenza 1 (PCR) Parainfluenza 2 (PCR) Parainfluenza 3 (PCR) Parainfluenza 4 (PCR) RSV (PCR) Entero/Rhino (PCR) SARS-CoV-2 RNA (RT-PCR) SARS-CoV-2 IgG Ab Blood Type Antibody Screen Crossmatch 01/07/21 01/07/21 01/07/21 16:15 17:07 20:24 WBC RBC Hgb Hct MCV MCH MCHC RDW Plt Count MPV Immature Gran % (Auto) Neut % (Auto) Lymph % (Auto) [place] % (Auto) Eos % (Auto) Baso % (Auto) Lymph # (Auto) [place] # (Auto) Eos # (Auto) Baso # (Auto) Abs Immat Gran (auto) Absolute Neuts (auto) Absolute Nucleated RBC Nucleated RBC % (auto) Smear Path Review Absolute Retic Percent Retic Immature Retic Fraction Retic Hgb Equivalent Sodium Potassium Chloride Carbon Dioxide Anion Gap BUN Creatinine Estim Creat Clear Calc Estimated GFR POC Glucose 192 H Random Glucose Lactic Acid Lactic Acid Fup @ 2Hr 1.1 Calcium Magnesium Iron TIBC % Saturation Unsat Iron Binding Ferritin Total Bilirubin Direct Bilirubin AST ALT Alkaline Phosphatase Lactate Dehydrogenase Troponin I High Sens B-Natriuretic Peptide Total Protein Albumin Lipase Vitamin B12 Folate Stool Occult Blood IgG Total IgA Total IgM YAMEL Interpretation Intrinsic Factor Ab Respiratory Panel [place] Adenovirus (Rapid PCR) B.pert (TEM-PCR) B.parapertussis DNA PCR C. pneumoniae DNA (PCR) Coronavirus OC43 (PCR) Coronavirus HKU1 (PCR) Coronavirus 229E (PCR) COVID-19 (ROBBIE) COVID-19 Clin Com Coronavirus NL63 (PCR) Human Metapneumovir PCR Influenza A (RT-PCR) Influenza B (RT-PCR) M. pneumoniae (PCR) Parainfluenza 1 (PCR) Parainfluenza 2 (PCR) Parainfluenza 3 (PCR) Parainfluenza 4 (PCR) RSV (PCR) Entero/Rhino (PCR) SARS-CoV-2 RNA (RT-PCR) SARS-CoV-2 IgG Ab Blood Type A Positive Antibody Screen NEGATIVE Crossmatch See Detail 01/08/21 01/08/21 01/08/21 05:19 05:19 05:19 WBC 9.0 RBC 2.59 L Hgb 7.3 L Hct 23.0 L MCV 88.8 MCH 28.2 MCHC 31.7 RDW 15.8 Plt Count 337 MPV 11.1 Immature Gran % (Auto) Neut % (Auto) Lymph % (Auto) [place] % (Auto) Eos % (Auto) Baso % (Auto) Lymph # (Auto) [place] # (Auto) Eos # (Auto) Baso # (Auto) Abs Immat Gran (auto) Absolute Neuts (auto) Absolute Nucleated RBC 0.000 Nucleated RBC % (auto) 0.0 Smear Path Review Absolute Retic 0.046 Percent Retic 1.8 Immature Retic Fraction 27.5 H Retic Hgb Equivalent 26.8 L Sodium 141 Potassium 5.4 H Chloride 107 Carbon Dioxide 22 Anion Gap 17 BUN 67 H Creatinine 3.24 H Estim Creat Clear Calc 14.4 Estimated GFR 14 POC Glucose Random Glucose 163 H D Lactic Acid Lactic Acid Fup @ 2Hr Calcium 9.0 Magnesium 2.0 Iron TIBC % Saturation Unsat Iron Binding Ferritin Total Bilirubin Direct Bilirubin AST ALT Alkaline Phosphatase Lactate Dehydrogenase 237 H Troponin I High Sens B-Natriuretic Peptide Total Protein Albumin Lipase Vitamin B12 < 146 L Folate 11.1 Stool Occult Blood IgG Total IgA Total IgM YAMEL Interpretation Intrinsic Factor Ab Respiratory Panel [place] Adenovirus (Rapid PCR) B.pert (TEM-PCR) B.parapertussis DNA PCR C. pneumoniae DNA (PCR) Coronavirus OC43 (PCR) Coronavirus HKU1 (PCR) Coronavirus 229E (PCR) COVID-19 (ROBBIE) COVID-19 Clin Com Coronavirus NL63 (PCR) Human Metapneumovir PCR Influenza A (RT-PCR) Influenza B (RT-PCR) M. pneumoniae (PCR) Parainfluenza 1 (PCR) Parainfluenza 2 (PCR) Parainfluenza 3 (PCR) Parainfluenza 4 (PCR) RSV (PCR) Entero/Rhino (PCR) SARS-CoV-2 RNA (RT-PCR) SARS-CoV-2 IgG Ab Blood Type Antibody Screen Crossmatch 01/08/21 01/08/21 01/08/21 07:13 10:58 11:25 WBC RBC Hgb Hct MCV MCH MCHC RDW Plt Count MPV Immature Gran % (Auto) Neut % (Auto) Lymph % (Auto) [place] % (Auto) Eos % (Auto) Baso % (Auto) Lymph # (Auto) [place] # (Auto) Eos # (Auto) Baso # (Auto) Abs Immat Gran (auto) Absolute Neuts (auto) Absolute Nucleated RBC Nucleated RBC % (auto) Smear Path Review Absolute Retic Percent Retic Immature Retic Fraction Retic Hgb Equivalent Sodium Potassium Chloride Carbon Dioxide Anion Gap BUN Creatinine Estim Creat Clear Calc Estimated GFR POC Glucose 159 H 158 H Random Glucose Lactic Acid Lactic Acid Fup @ 2Hr Calcium Magnesium Iron TIBC % Saturation Unsat Iron Binding Ferritin Total Bilirubin Direct Bilirubin AST ALT Alkaline Phosphatase Lactate Dehydrogenase Troponin I High Sens B-Natriuretic Peptide Total Protein Albumin Lipase Vitamin B12 Folate Stool Occult Blood IgG Total IgA Total IgM YAMEL Interpretation Intrinsic Factor Ab Negative Respiratory Panel [place] Adenovirus (Rapid PCR) B.pert (TEM-PCR) B.parapertussis DNA PCR C. pneumoniae DNA (PCR) Coronavirus OC43 (PCR) Coronavirus HKU1 (PCR) Coronavirus 229E (PCR) COVID-19 (ROBBIE) COVID-19 Clin Com Coronavirus NL63 (PCR) Human Metapneumovir PCR Influenza A (RT-PCR) Influenza B (RT-PCR) M. pneumoniae (PCR) Parainfluenza 1 (PCR) Parainfluenza 2 (PCR) Parainfluenza 3 (PCR) Parainfluenza 4 (PCR) RSV (PCR) Entero/Rhino (PCR) SARS-CoV-2 RNA (RT-PCR) SARS-CoV-2 IgG Ab Blood Type Antibody Screen Crossmatch 01/08/21 01/08/21 01/08/21 15:20 15:46 17:12 WBC RBC Hgb Hct MCV MCH MCHC RDW Plt Count MPV Immature Gran % (Auto) Neut % (Auto) Lymph % (Auto) [place] % (Auto) Eos % (Auto) Baso % (Auto) Lymph # (Auto) [place] # (Auto) Eos # (Auto) Baso # (Auto) Abs Immat Gran (auto) Absolute Neuts (auto) Absolute Nucleated RBC Nucleated RBC % (auto) Smear Path Review Absolute Retic Percent Retic Immature Retic Fraction Retic Hgb Equivalent Sodium Potassium Chloride Carbon Dioxide Anion Gap BUN Creatinine Estim Creat Clear Calc Estimated GFR POC Glucose 140 H 129 H Random Glucose Lactic Acid Lactic Acid Fup @ 2Hr Calcium Magnesium Iron TIBC % Saturation Unsat Iron Binding Ferritin Total Bilirubin Direct Bilirubin AST ALT Alkaline Phosphatase Lactate Dehydrogenase Troponin I High Sens B-Natriuretic Peptide Total Protein Albumin Lipase Vitamin B12 Folate Stool Occult Blood IgG Total IgA Total IgM YAMEL Interpretation Intrinsic Factor Ab Respiratory Panel [place] See Note Adenovirus (Rapid PCR) Not Detected B.pert (TEM-PCR) Not Detected B.parapertussis DNA PCR Not Detected C. pneumoniae DNA (PCR) Not Detected Coronavirus OC43 (PCR) Not Detected Coronavirus HKU1 (PCR) Not Detected Coronavirus 229E (PCR) Not Detected COVID-19 (ROBBIE) COVID-19 Clin Com Coronavirus NL63 (PCR) Not Detected Human Metapneumovir PCR Not Detected Influenza A (RT-PCR) Not Detected Influenza B (RT-PCR) Not Detected M. pneumoniae (PCR) Not Detected Parainfluenza 1 (PCR) Not Detected Parainfluenza 2 (PCR) Not Detected Parainfluenza 3 (PCR) Not Detected Parainfluenza 4 (PCR) Not Detected RSV (PCR) Not Detected Entero/Rhino (PCR) Not Detected SARS-CoV-2 RNA (RT-PCR) Not Detected SARS-CoV-2 IgG Ab Blood Type Antibody Screen Crossmatch 01/08/21 01/09/21 01/09/21 20:44 06:22 06:22 WBC 7.2 RBC 2.57 L Hgb 7.1 L Hct 22.8 L MCV 88.7 MCH 27.6 MCHC 31.1 RDW 15.6 Plt Count 328 MPV 11.1 Immature Gran % (Auto) Neut % (Auto) Lymph % (Auto) [place] % (Auto) Eos % (Auto) Baso % (Auto) Lymph # (Auto) [place] # (Auto) Eos # (Auto) Baso # (Auto) Abs Immat Gran (auto) Absolute Neuts (auto) Absolute Nucleated RBC 0.000 Nucleated RBC % (auto) 0.0 Smear Path Review Absolute Retic Percent Retic Immature Retic Fraction Retic Hgb Equivalent Sodium Potassium Chloride Carbon Dioxide Anion Gap BUN Creatinine Estim Creat Clear Calc Estimated GFR POC Glucose 166 H Random Glucose Lactic Acid Lactic Acid Fup @ 2Hr Calcium Magnesium Iron TIBC % Saturation Unsat Iron Binding Ferritin Total Bilirubin Direct Bilirubin AST ALT Alkaline Phosphatase Lactate Dehydrogenase Troponin I High Sens B-Natriuretic Peptide Total Protein Albumin Lipase Vitamin B12 Folate Stool Occult Blood IgG Total 965 IgA Total 179 IgM 44 L YAMEL Interpretation SEE NOTE Intrinsic Factor Ab Respiratory Panel [place] Adenovirus (Rapid PCR) B.pert (TEM-PCR) B.parapertussis DNA PCR C. pneumoniae DNA (PCR) Coronavirus OC43 (PCR) Coronavirus HKU1 (PCR) Coronavirus 229E (PCR) COVID-19 (ROBBIE) COVID-19 Clin Com Coronavirus NL63 (PCR) Human Metapneumovir PCR Influenza A (RT-PCR) Influenza B (RT-PCR) M. pneumoniae (PCR) Parainfluenza 1 (PCR) Parainfluenza 2 (PCR) Parainfluenza 3 (PCR) Parainfluenza 4 (PCR) RSV (PCR) Entero/Rhino (PCR) SARS-CoV-2 RNA (RT-PCR) SARS-CoV-2 IgG Ab Blood Type Antibody Screen Crossmatch 01/09/21 01/09/21 01/09/21 06:22 06:23 07:25 WBC RBC Hgb Hct MCV MCH MCHC RDW Plt Count MPV Immature Gran % (Auto) Neut % (Auto) Lymph % (Auto) [place] % (Auto) Eos % (Auto) Baso % (Auto) Lymph # (Auto) [place] # (Auto) Eos # (Auto) Baso # (Auto) Abs Immat Gran (auto) Absolute Neuts (auto) Absolute Nucleated RBC Nucleated RBC % (auto) Smear Path Review Absolute Retic Percent Retic Immature Retic Fraction Retic Hgb Equivalent Sodium 143 Potassium 4.0 D Chloride 107 Carbon Dioxide 23 Anion Gap 17 BUN 63 H Creatinine 3.25 H Estim Creat Clear Calc 14.4 Estimated GFR 14 POC Glucose 115 Random Glucose 108 Lactic Acid Lactic Acid Fup @ 2Hr Calcium 8.7 Magnesium 1.9 Iron TIBC % Saturation Unsat Iron Binding Ferritin Total Bilirubin Direct Bilirubin AST ALT Alkaline Phosphatase Lactate Dehydrogenase Troponin I High Sens B-Natriuretic Peptide 1676 H Total Protein Albumin Lipase Vitamin B12 Folate Stool Occult Blood IgG Total IgA Total IgM YAMEL Interpretation Intrinsic Factor Ab Respiratory Panel [place] Adenovirus (Rapid PCR) B.pert (TEM-PCR) B.parapertussis DNA PCR C. pneumoniae DNA (PCR) Coronavirus OC43 (PCR) Coronavirus HKU1 (PCR) Coronavirus 229E (PCR) COVID-19 (ROBBIE) COVID-19 Clin Com Coronavirus NL63 (PCR) Human Metapneumovir PCR Influenza A (RT-PCR) Influenza B (RT-PCR) M. pneumoniae (PCR) Parainfluenza 1 (PCR) Parainfluenza 2 (PCR) Parainfluenza 3 (PCR) Parainfluenza 4 (PCR) RSV (PCR) Entero/Rhino (PCR) SARS-CoV-2 RNA (RT-PCR) SARS-CoV-2 IgG Ab Blood Type Antibody Screen Crossmatch 01/09/21 01/09/21 01/09/21 07:39 11:08 16:06 WBC RBC Hgb Hct MCV MCH MCHC RDW Plt Count MPV Immature Gran % (Auto) Neut % (Auto) Lymph % (Auto) [place] % (Auto) Eos % (Auto) Baso % (Auto) Lymph # (Auto) [place] # (Auto) Eos # (Auto) Baso # (Auto) Abs Immat Gran (auto) Absolute Neuts (auto) Absolute Nucleated RBC Nucleated RBC % (auto) Smear Path Review Absolute Retic Percent Retic Immature Retic Fraction Retic Hgb Equivalent Sodium Potassium Chloride Carbon Dioxide Anion Gap BUN Creatinine Estim Creat Clear Calc Estimated GFR POC Glucose 159 H 139 H Random Glucose Lactic Acid Lactic Acid Fup @ 2Hr Calcium Magnesium Iron TIBC % Saturation Unsat Iron Binding Ferritin Total Bilirubin Direct Bilirubin AST ALT Alkaline Phosphatase Lactate Dehydrogenase Troponin I High Sens B-Natriuretic Peptide Total Protein Albumin Lipase Vitamin B12 Folate Stool Occult Blood IgG Total IgA Total IgM YAMEL Interpretation Intrinsic Factor Ab Respiratory Panel [place] Adenovirus (Rapid PCR) B.pert (TEM-PCR) B.parapertussis DNA PCR C. pneumoniae DNA (PCR) Coronavirus OC43 (PCR) Coronavirus HKU1 (PCR) Coronavirus 229E (PCR) COVID-19 (ROBBIE) COVID-19 Clin Com Coronavirus NL63 (PCR) Human Metapneumovir PCR Influenza A (RT-PCR) Influenza B (RT-PCR) M. pneumoniae (PCR) Parainfluenza 1 (PCR) Parainfluenza 2 (PCR) Parainfluenza 3 (PCR) Parainfluenza 4 (PCR) RSV (PCR) Entero/Rhino (PCR) SARS-CoV-2 RNA (RT-PCR) SARS-CoV-2 IgG Ab Negative Blood Type Antibody Screen Crossmatch 01/09/21 01/10/21 01/10/21 19:57 06:05 06:05 WBC RBC Hgb Hct MCV MCH MCHC RDW Plt Count MPV Immature Gran % (Auto) Neut % (Auto) Lymph % (Auto) [place] % (Auto) Eos % (Auto) Baso % (Auto) Lymph # (Auto) [place] # (Auto) Eos # (Auto) Baso # (Auto) Abs Immat Gran (auto) Absolute Neuts (auto) Absolute Nucleated RBC Nucleated RBC % (auto) Smear Path Review Absolute Retic Percent Retic Immature Retic Fraction Retic Hgb Equivalent Sodium 140 Potassium 3.5 Chloride 104 Carbon Dioxide 24 Anion Gap 16 BUN 62 H Creatinine 3.08 H Estim Creat Clear Calc 15.1 Estimated GFR 15 POC Glucose 223 H Random Glucose 129 H Lactic Acid Lactic Acid Fup @ 2Hr Calcium 8.2 L Magnesium 1.8 Iron TIBC % Saturation Unsat Iron Binding Ferritin Total Bilirubin Direct Bilirubin AST ALT Alkaline Phosphatase Lactate Dehydrogenase Troponin I High Sens B-Natriuretic Peptide 1282 H Total Protein Albumin Lipase Vitamin B12 Folate Stool Occult Blood IgG Total IgA Total IgM YAMEL Interpretation Intrinsic Factor Ab Respiratory Panel [place] Adenovirus (Rapid PCR) B.pert (TEM-PCR) B.parapertussis DNA PCR C. pneumoniae DNA (PCR) Coronavirus OC43 (PCR) Coronavirus HKU1 (PCR) Coronavirus 229E (PCR) COVID-19 (ROBBIE) COVID-19 Clin Com Coronavirus NL63 (PCR) Human Metapneumovir PCR Influenza A (RT-PCR) Influenza B (RT-PCR) M. pneumoniae (PCR) Parainfluenza 1 (PCR) Parainfluenza 2 (PCR) Parainfluenza 3 (PCR) Parainfluenza 4 (PCR) RSV (PCR) Entero/Rhino (PCR) SARS-CoV-2 RNA (RT-PCR) SARS-CoV-2 IgG Ab Blood Type Antibody Screen Crossmatch 01/10/21 01/10/21 01/10/21 07:09 11:30 16:00 WBC RBC Hgb Hct MCV MCH MCHC RDW Plt Count MPV Immature Gran % (Auto) Neut % (Auto) Lymph % (Auto) [place] % (Auto) Eos % (Auto) Baso % (Auto) Lymph # (Auto) [place] # (Auto) Eos # (Auto) Baso # (Auto) Abs Immat Gran (auto) Absolute Neuts (auto) Absolute Nucleated RBC Nucleated RBC % (auto) Smear Path Review Absolute Retic Percent Retic Immature Retic Fraction Retic Hgb Equivalent Sodium Potassium Chloride Carbon Dioxide Anion Gap BUN Creatinine Estim Creat Clear Calc Estimated GFR POC Glucose 140 H 223 H 121 H Random Glucose Lactic Acid Lactic Acid Fup @ 2Hr Calcium Magnesium Iron TIBC % Saturation Unsat Iron Binding Ferritin Total Bilirubin Direct Bilirubin AST ALT Alkaline Phosphatase Lactate Dehydrogenase Troponin I High Sens B-Natriuretic Peptide Total Protein Albumin Lipase Vitamin B12 Folate Stool Occult Blood IgG Total IgA Total IgM YAMEL Interpretation Intrinsic Factor Ab Respiratory Panel [place] Adenovirus (Rapid PCR) B.pert (TEM-PCR) B.parapertussis DNA PCR C. pneumoniae DNA (PCR) Coronavirus OC43 (PCR) Coronavirus HKU1 (PCR) Coronavirus 229E (PCR) COVID-19 (ROBBIE) COVID-19 Clin Com Coronavirus NL63 (PCR) Human Metapneumovir PCR Influenza A (RT-PCR) Influenza B (RT-PCR) M. pneumoniae (PCR) Parainfluenza 1 (PCR) Parainfluenza 2 (PCR) Parainfluenza 3 (PCR) Parainfluenza 4 (PCR) RSV (PCR) Entero/Rhino (PCR) SARS-CoV-2 RNA (RT-PCR) SARS-CoV-2 IgG Ab Blood Type Antibody Screen Crossmatch 01/10/21 01/10/21 01/11/21 16:12 19:35 05:45 WBC 7.8 RBC 3.74 L D Hgb 10.4 L D 11.0 L Hct 31.0 L D 33.1 L MCV 88.5 MCH 29.4 MCHC 33.2 RDW 14.8 Plt Count 276 MPV 10.8 Immature Gran % (Auto) Neut % (Auto) Lymph % (Auto) [place] % (Auto) Eos % (Auto) Baso % (Auto) Lymph # (Auto) [place] # (Auto) Eos # (Auto) Baso # (Auto) Abs Immat Gran (auto) Absolute Neuts (auto) Absolute Nucleated RBC 0.000 Nucleated RBC % (auto) 0.0 Smear Path Review Absolute Retic Percent Retic Immature Retic Fraction Retic Hgb Equivalent Sodium Potassium Chloride Carbon Dioxide Anion Gap BUN Creatinine Estim Creat Clear Calc Estimated GFR POC Glucose 272 H Random Glucose Lactic Acid Lactic Acid Fup @ 2Hr Calcium Magnesium Iron TIBC % Saturation Unsat Iron Binding Ferritin Total Bilirubin Direct Bilirubin AST ALT Alkaline Phosphatase Lactate Dehydrogenase Troponin I High Sens B-Natriuretic Peptide Total Protein Albumin Lipase Vitamin B12 Folate Stool Occult Blood IgG Total IgA Total IgM YAMEL Interpretation Intrinsic Factor Ab Respiratory Panel [place] Adenovirus (Rapid PCR) B.pert (TEM-PCR) B.parapertussis DNA PCR C. pneumoniae DNA (PCR) Coronavirus OC43 (PCR) Coronavirus HKU1 (PCR) Coronavirus 229E (PCR) COVID-19 (ROBBIE) COVID-19 Clin Com Coronavirus NL63 (PCR) Human Metapneumovir PCR Influenza A (RT-PCR) Influenza B (RT-PCR) M. pneumoniae (PCR) Parainfluenza 1 (PCR) Parainfluenza 2 (PCR) Parainfluenza 3 (PCR) Parainfluenza 4 (PCR) RSV (PCR) Entero/Rhino (PCR) SARS-CoV-2 RNA (RT-PCR) SARS-CoV-2 IgG Ab Blood Type Antibody Screen Crossmatch 01/11/21 01/11/21 01/11/21 05:45 05:45 06:59 WBC RBC Hgb Hct MCV MCH MCHC RDW Plt Count MPV Immature Gran % (Auto) Neut % (Auto) Lymph % (Auto) [place] % (Auto) Eos % (Auto) Baso % (Auto) Lymph # (Auto) [place] # (Auto) Eos # (Auto) Baso # (Auto) Abs Immat Gran (auto) Absolute Neuts (auto) Absolute Nucleated RBC Nucleated RBC % (auto) Smear Path Review Absolute Retic Percent Retic Immature Retic Fraction Retic Hgb Equivalent Sodium 142 Potassium 3.6 Chloride 103 Carbon Dioxide 27 Anion Gap 16 BUN 63 H Creatinine 3.16 H Estim Creat Clear Calc 14.8 Estimated GFR 14 POC Glucose 97 Random Glucose 97 Lactic Acid Lactic Acid Fup @ 2Hr Calcium 8.3 L Magnesium 1.7 Iron TIBC % Saturation Unsat Iron Binding Ferritin Total Bilirubin Direct Bilirubin AST ALT Alkaline Phosphatase Lactate Dehydrogenase Troponin I High Sens B-Natriuretic Peptide 1378 H Total Protein Albumin Lipase Vitamin B12 Folate Stool Occult Blood IgG Total IgA Total IgM YAMEL Interpretation Intrinsic Factor Ab Respiratory Panel [place] Adenovirus (Rapid PCR) B.pert (TEM-PCR) B.parapertussis DNA PCR C. pneumoniae DNA (PCR) Coronavirus OC43 (PCR) Coronavirus HKU1 (PCR) Coronavirus 229E (PCR) COVID-19 ([facility]OBBIE) COVID-19 Clin Com Coronavirus NL63 (PCR) Human Metapneumovir PCR Influenza A (RT-PCR) Influenza B (RT-PCR) M. pneumoniae (PCR) Parainfluenza 1 (PCR) Parainfluenza 2 (PCR) Parainfluenza 3 (PCR) Parainfluenza 4 (PCR) RSV (PCR) Entero/Rhino (PCR) SARS-CoV-2 RNA (RT-PCR) SARS-CoV-2 IgG Ab Blood Type Antibody Screen Crossmatch 01/11/21 01/11/21 01/11/21 11:03 15:59 19:46 WBC RBC Hgb Hct MCV MCH MCHC RDW Plt Count MPV Immature Gran % (Auto) Neut % (Auto) Lymph % (Auto) [place] % (Auto) Eos % (Auto) Baso % (Auto) Lymph # (Auto) [place] # (Auto) Eos # (Auto) Baso # (Auto) Abs Immat Gran (auto) Absolute Neuts (auto) Absolute Nucleated RBC Nucleated RBC % (auto) Smear Path Review Absolute Retic Percent Retic Immature Retic Fraction Retic Hgb Equivalent Sodium Potassium Chloride Carbon Dioxide Anion Gap BUN Creatinine Estim Creat Clear Calc Estimated GFR POC Glucose 178 H 184 H 224 H Random Glucose Lactic Acid Lactic Acid Fup @ 2Hr Calcium Magnesium Iron TIBC % Saturation Unsat Iron Binding Ferritin Total Bilirubin Direct Bilirubin AST ALT Alkaline Phosphatase Lactate Dehydrogenase Troponin I High Sens B-Natriuretic Peptide Total Protein Albumin Lipase Vitamin B12 Folate Stool Occult Blood IgG Total IgA Total IgM YAMEL Interpretation Intrinsic Factor Ab Respiratory Panel [place] Adenovirus (Rapid PCR) B.pert (TEM-PCR) B.parapertussis DNA PCR C. pneumoniae DNA (PCR) Coronavirus OC43 (PCR) Coronavirus HKU1 (PCR) Coronavirus 229E (PCR) COVID-19 (ROBBIE) COVID-19 Clin Com Coronavirus NL63 (PCR) Human Metapneumovir PCR Influenza A (RT-PCR) Influenza B (RT-PCR) M. pneumoniae (PCR) Parainfluenza 1 (PCR) Parainfluenza 2 (PCR) Parainfluenza 3 (PCR) Parainfluenza 4 (PCR) RSV (PCR) Entero/Rhino (PCR) SARS-CoV-2 RNA (RT-PCR) SARS-CoV-2 IgG Ab Blood Type Antibody Screen Crossmatch 01/12/21 01/12/21 01/12/21 06:00 06:00 06:00 WBC 7.5 RBC 3.79 L Hgb 11.3 L Hct 33.8 L MCV 89.2 MCH 29.8 MCHC 33.4 RDW 15.1 Plt Count 254 MPV 10.6 Immature Gran % (Auto) Neut % (Auto) Lymph % (Auto) [place] % (Auto) Eos % (Auto) Baso % (Auto) Lymph # (Auto) [place] # (Auto) Eos # (Auto) Baso # (Auto) Abs Immat Gran (auto) Absolute Neuts (auto) Absolute Nucleated RBC 0.000 Nucleated RBC % (auto) 0.0 Smear Path Review Absolute Retic Percent Retic Immature Retic Fraction Retic Hgb Equivalent Sodium 139 Potassium 3.3 Chloride 100 Carbon Dioxide 29 Anion Gap 13 BUN 66 H Creatinine 3.28 H Estim Creat Clear Calc 14.2 Estimated GFR 14 POC Glucose Random Glucose 118 H Lactic Acid Lactic Acid Fup @ 2Hr Calcium 8.3 L Magnesium 1.6 Iron TIBC % Saturation Unsat Iron Binding Ferritin Total Bilirubin Direct Bilirubin AST ALT Alkaline Phosphatase Lactate Dehydrogenase Troponin I High Sens B-Natriuretic Peptide 1096 H Total Protein Albumin Lipase Vitamin B12 Folate Stool Occult Blood IgG Total IgA Total IgM YAMEL Interpretation Intrinsic Factor Ab Respiratory Panel [place] Adenovirus (Rapid PCR) B.pert (TEM-PCR) B.parapertussis DNA PCR C. pneumoniae DNA (PCR) Coronavirus OC43 (PCR) Coronavirus HKU1 (PCR) Coronavirus 229E (PCR) COVID-19 (ROBBIE) COVID-19 Clin Com Coronavirus NL63 (PCR) Human Metapneumovir PCR Influenza A (RT-PCR) Influenza B (RT-PCR) M. pneumoniae (PCR) Parainfluenza 1 (PCR) Parainfluenza 2 (PCR) Parainfluenza 3 (PCR) Parainfluenza 4 (PCR) RSV (PCR) Entero/Rhino (PCR) SARS-CoV-2 RNA (RT-PCR) SARS-CoV-2 IgG Ab Blood Type Antibody Screen Crossmatch 01/12/21 01/12/21 01/12/21 07:09 11:00 16:40 WBC RBC Hgb Hct MCV MCH MCHC RDW Plt Count MPV Immature Gran % (Auto) Neut % (Auto) Lymph % (Auto) [place] % (Auto) Eos % (Auto) Baso % (Auto) Lymph # (Auto) [place] # (Auto) Eos # (Auto) Baso # (Auto) Abs Immat Gran (auto) Absolute Neuts (auto) Absolute Nucleated RBC Nucleated RBC % (auto) Smear Path Review Absolute Retic Percent Retic Immature Retic Fraction Retic Hgb Equivalent Sodium Potassium Chloride Carbon Dioxide Anion Gap BUN Creatinine Estim Creat Clear Calc Estimated GFR POC Glucose 116 H 162 H 206 H Random Glucose Lactic Acid Lactic Acid Fup @ 2Hr Calcium Magnesium Iron TIBC % Saturation Unsat Iron Binding Ferritin Total Bilirubin Direct Bilirubin AST ALT Alkaline Phosphatase Lactate Dehydrogenase Troponin I High Sens B-Natriuretic Peptide Total Protein Albumin Lipase Vitamin B12 Folate Stool Occult Blood IgG Total IgA Total IgM YAMEL Interpretation Intrinsic Factor Ab Respiratory Panel [place] Adenovirus (Rapid PCR) B.pert (TEM-PCR) B.parapertussis DNA PCR C. pneumoniae DNA (PCR) Coronavirus OC43 (PCR) Coronavirus HKU1 (PCR) Coronavirus 229E (PCR) COVID-19 (ROBBIE) COVID-19 Clin Com Coronavirus NL63 (PCR) Human Metapneumovir PCR Influenza A (RT-PCR) Influenza B (RT-PCR) M. pneumoniae (PCR) Parainfluenza 1 (PCR) Parainfluenza 2 (PCR) Parainfluenza 3 (PCR) Parainfluenza 4 (PCR) RSV (PCR) Entero/Rhino (PCR) SARS-CoV-2 RNA (RT-PCR) SARS-CoV-2 IgG Ab Blood Type Antibody Screen Crossmatch 01/12/21 01/13/21 01/13/21 20:16 06:20 06:20 WBC RBC Hgb Hct MCV MCH MCHC RDW Plt Count MPV Immature Gran % (Auto) Neut % (Auto) Lymph % (Auto) [place] % (Auto) Eos % (Auto) Baso % (Auto) Lymph # (Auto) [place] # (Auto) Eos # (Auto) Baso # (Auto) Abs Immat Gran (auto) Absolute Neuts (auto) Absolute Nucleated RBC Nucleated RBC % (auto) Smear Path Review Absolute Retic Percent Retic Immature Retic Fraction Retic Hgb Equivalent Sodium 139 Potassium 4.1 D Chloride 99 Carbon Dioxide 23 Anion Gap 21 H BUN 75 H Creatinine 3.14 H Estim Creat Clear Calc 14.9 Estimated GFR 14 POC Glucose 212 H Random Glucose 150 H Lactic Acid Lactic Acid Fup @ 2Hr Calcium 8.8 D Magnesium 1.8 Iron TIBC % Saturation Unsat Iron Binding Ferritin Total Bilirubin Direct Bilirubin AST ALT Alkaline Phosphatase Lactate Dehydrogenase Troponin I High Sens B-Natriuretic Peptide 678 H Total Protein Albumin Lipase Vitamin B12 Folate Stool Occult Blood IgG Total IgA Total IgM YAMEL Interpretation Intrinsic Factor Ab Respiratory Panel [place] Adenovirus (Rapid PCR) B.pert (TEM-PCR) B.parapertussis DNA PCR C. pneumoniae DNA (PCR) Coronavirus OC43 (PCR) Coronavirus HKU1 (PCR) Coronavirus 229E (PCR) COVID-19 (ROBBIE) COVID-19 Clin Com Coronavirus NL63 (PCR) Human Metapneumovir PCR Influenza A (RT-PCR) Influenza B (RT-PCR) M. pneumoniae (PCR) Parainfluenza 1 (PCR) Parainfluenza 2 (PCR) Parainfluenza 3 (PCR) Parainfluenza 4 (PCR) RSV (PCR) Entero/Rhino (PCR) SARS-CoV-2 RNA (RT-PCR) SARS-CoV-2 IgG Ab Blood Type Antibody Screen Crossmatch 01/13/21 01/13/21 01/13/21 07:31 11:17 16:19 WBC RBC Hgb Hct MCV MCH MCHC RDW Plt Count MPV Immature Gran % (Auto) Neut % (Auto) Lymph % (Auto) [place] % (Auto) Eos % (Auto) Baso % (Auto) Lymph # (Auto) [place] # (Auto) Eos # (Auto) Baso # (Auto) Abs Immat Gran (auto) Absolute Neuts (auto) Absolute Nucleated RBC Nucleated RBC % (auto) Smear Path Review Absolute Retic Percent Retic Immature Retic Fraction Retic Hgb Equivalent Sodium Potassium Chloride Carbon Dioxide Anion Gap BUN Creatinine Estim Creat Clear Calc Estimated GFR POC Glucose 163 H 147 H 203 H Random Glucose Lactic Acid Lactic Acid Fup @ 2Hr Calcium Magnesium Iron TIBC % Saturation Unsat Iron Binding Ferritin Total Bilirubin Direct Bilirubin AST ALT Alkaline Phosphatase Lactate Dehydrogenase Troponin I High Sens B-Natriuretic Peptide Total Protein Albumin Lipase Vitamin B12 Folate Stool Occult Blood IgG Total IgA Total IgM YAMEL Interpretation Intrinsic Factor Ab Respiratory Panel [place] Adenovirus (Rapid PCR) B.pert (TEM-PCR) B.parapertussis DNA PCR C. pneumoniae DNA (PCR) Coronavirus OC43 (PCR) Coronavirus HKU1 (PCR) Coronavirus 229E (PCR) COVID-19 (ROBBIE) COVID-19 Clin Com Coronavirus NL63 (PCR) Human Metapneumovir PCR Influenza A (RT-PCR) Influenza B (RT-PCR) M. pneumoniae (PCR) Parainfluenza 1 (PCR) Parainfluenza 2 (PCR) Parainfluenza 3 (PCR) Parainfluenza 4 (PCR) RSV (PCR) Entero/Rhino (PCR) SARS-CoV-2 RNA (RT-PCR) SARS-CoV-2 IgG Ab Blood Type Antibody Screen Crossmatch 01/13/21 01/14/21 01/14/21 20:24 07:11 11:52 WBC RBC Hgb Hct MCV MCH MCHC RDW Plt Count MPV Immature Gran % (Auto) Neut % (Auto) Lymph % (Auto) [place] % (Auto) Eos % (Auto) Baso % (Auto) Lymph # (Auto) [place] # (Auto) Eos # (Auto) Baso # (Auto) Abs Immat Gran (auto) Absolute Neuts (auto) Absolute Nucleated RBC Nucleated RBC % (auto) Smear Path Review Absolute Retic Percent Retic Immature Retic Fraction Retic Hgb Equivalent Sodium Potassium Chloride Carbon Dioxide Anion Gap BUN Creatinine Estim Creat Clear Calc Estimated GFR POC Glucose 218 H 139 H 164 H Random Glucose Lactic Acid Lactic Acid Fup @ 2Hr Calcium Magnesium Iron TIBC % Saturation Unsat Iron Binding Ferritin Total Bilirubin Direct Bilirubin AST ALT Alkaline Phosphatase Lactate Dehydrogenase Troponin I High Sens B-Natriuretic Peptide Total Protein Albumin Lipase Vitamin B12 Folate Stool Occult Blood IgG Total IgA Total IgM YAMEL Interpretation Intrinsic Factor Ab Respiratory Panel [place] Adenovirus (Rapid PCR) B.pert (TEM-PCR) B.parapertussis DNA PCR C. pneumoniae DNA (PCR) Coronavirus OC43 (PCR) Coronavirus HKU1 (PCR) Coronavirus 229E (PCR) COVID-19 (ROBBIE) COVID-19 Clin Com Coronavirus NL63 (PCR) Human Metapneumovir PCR Influenza A (RT-PCR) Influenza B (RT-PCR) M. pneumoniae (PCR) Parainfluenza 1 (PCR) Parainfluenza 2 (PCR) Parainfluenza 3 (PCR) Parainfluenza 4 (PCR) RSV (PCR) Entero/Rhino (PCR) SARS-CoV-2 RNA (RT-PCR) SARS-CoV-2 IgG Ab Blood Type Antibody Screen Crossmatch 01/14/21 01/14/21 01/15/21 16:39 20:32 07:24 WBC RBC Hgb Hct MCV MCH MCHC RDW Plt Count MPV Immature Gran % (Auto) Neut % (Auto) Lymph % (Auto) [place] % (Auto) Eos % (Auto) Baso % (Auto) Lymph # (Auto) [place] # (Auto) Eos # (Auto) Baso # (Auto) Abs Immat Gran (auto) Absolute Neuts (auto) Absolute Nucleated RBC Nucleated RBC % (auto) Smear Path Review Absolute Retic Percent Retic Immature Retic Fraction Retic Hgb Equivalent Sodium Potassium Chloride Carbon Dioxide Anion Gap BUN Creatinine Estim Creat Clear Calc Estimated GFR POC Glucose 120 H 175 H 133 H Random Glucose Lactic Acid Lactic Acid Fup @ 2Hr Calcium Magnesium Iron TIBC % Saturation Unsat Iron Binding Ferritin Total Bilirubin Direct Bilirubin AST ALT Alkaline Phosphatase Lactate Dehydrogenase Troponin I High Sens B-Natriuretic Peptide Total Protein Albumin Lipase Vitamin B12 Folate Stool Occult Blood IgG Total IgA Total IgM YAMEL Interpretation Intrinsic Factor Ab Respiratory Panel [place] Adenovirus (Rapid PCR) B.pert (TEM-PCR) B.parapertussis DNA PCR C. pneumoniae DNA (PCR) Coronavirus OC43 (PCR) Coronavirus HKU1 (PCR) Coronavirus 229E (PCR) COVID-19 (ROBBIE) COVID-19 Clin Com Coronavirus NL63 (PCR) Human Metapneumovir PCR Influenza A (RT-PCR) Influenza B (RT-PCR) M. pneumoniae (PCR) Parainfluenza 1 (PCR) Parainfluenza 2 (PCR) Parainfluenza 3 (PCR) Parainfluenza 4 (PCR) RSV (PCR) Entero/Rhino (PCR) SARS-CoV-2 RNA (RT-PCR) SARS-CoV-2 IgG Ab Blood Type Antibody Screen Crossmatch 01/15/21 10:59 WBC RBC Hgb Hct MCV MCH MCHC RDW Plt Count MPV Immature Gran % (Auto) Neut % (Auto) Lymph % (Auto) [place] % (Auto) Eos % (Auto) Baso % (Auto) Lymph # (Auto) [place] # (Auto) Eos # (Auto) Baso # (Auto) Abs Immat Gran (auto) Absolute Neuts (auto) Absolute Nucleated RBC Nucleated RBC % (auto) Smear Path Review Absolute Retic Percent Retic Immature Retic Fraction Retic Hgb Equivalent Sodium Potassium Chloride Carbon Dioxide Anion Gap BUN Creatinine Estim Creat Clear Calc Estimated GFR POC Glucose 125 H Random Glucose Lactic Acid Lactic Acid Fup @ 2Hr Calcium Magnesium Iron TIBC % Saturation Unsat Iron Binding Ferritin Total Bilirubin Direct Bilirubin AST ALT Alkaline Phosphatase Lactate Dehydrogenase Troponin I High Sens B-Natriuretic Peptide Total Protein Albumin Lipase Vitamin B12 Folate Stool Occult Blood IgG Total IgA Total IgM YAMEL Interpretation Intrinsic Factor Ab Respiratory Panel [place] Adenovirus (Rapid PCR) B.pert (TEM-PCR) B.parapertussis DNA PCR C. pneumoniae DNA (PCR) Coronavirus OC43 (PCR) Coronavirus HKU1 (PCR) Coronavirus 229E (PCR) COVID-19 (ROBBIE) COVID-19 Clin Com Coronavirus NL63 (PCR) Human Metapneumovir PCR Influenza A (RT-PCR) Influenza B (RT-PCR) M. pneumoniae (PCR) Parainfluenza 1 (PCR) Parainfluenza 2 (PCR) Parainfluenza 3 (PCR) Parainfluenza 4 (PCR) RSV (PCR) Entero/Rhino (PCR) SARS-CoV-2 RNA (RT-PCR) SARS-CoV-2 IgG Ab Blood Type Antibody Screen Crossmatch Airway Mallampati Class: I TM Dist: >3cm Neck ROM: Full Heart: RrR Lungs: CTA Assessment and Plan Assessment Anesthesia Assessment: Anesthesia Plan Discussed and Chart Reviewed Final Anesthetic Review NPO: Yes (Sip water with med) ASA Class: III Final Preanesthetic Review: No Changes in Pt Med Stat and Consent Obtained/Reviewed Patient Risk: Intermediate Procedure Risk: Intermediate Anesthetic Plan Anesthetic Plan: MAC: Disposition: Standard PACU
[2021-01-15 11:57] LABS: Glucose, Whole Blood 134 mg/dL (60-115)
--- NOTE | 2021-01-15 12:44 | HO.PM.IMPN ---
Subjective Subjective Date of Service: 01/15/21 Interval History: leg pain Cardiovascular Cardiovascular: Reports no additional cardiovascular complaints Respiratory Respiratory: Reports no additional respiratory complaints Physical Exam Vital Signs: Vital Signs: Last Vital Signs Temp 98.2 F 01/15/21 11:42 Pulse 83 01/15/21 11:42 Resp 16 01/15/21 11:42 BP 146/61 H 01/15/21 11:42 Pulse Ox 93 01/15/21 11:42 Oxygen Flow Rate 4 01/07/21 14:17 Body Mass Index 36.3 Gen: in no acute distress HEENT: sclera anicteric, moist mucus membranes Neck: supple Lungs: diminished bilaterally Heart: regular rate and rhythm, no murmurs Abd: soft, non-tender, non-distended Ext: trace edema bilateral legs Skin: warm/well-perfused Neuro: alert and oriented x3, no focal findings Psych: appropriate affect Objective Data Current Medications Generic Name Dose Route Start Last Admin Trade Name Freq PRN Reason Stop Dose Admin Acetaminophen 650 mg 01/07/21 18:06 01/15/21 10:04 Acetaminophen 325 Mg Tablet PO 650 mg Q6H PRN Administration Pain, Mild (Pain Scale 1-3) Amlodipine Besylate 10 mg 01/08/21 09:00 01/15/21 08:57 Amlodipine Besylate 10 Mg Tablet PO 10 mg DAILY [facility] Administration Protocol Atorvastatin Calcium 40 mg 01/08/21 21:00 01/14/21 20:11 Atorvastatin Calcium 40 Mg Tablet PO 40 mg BEDTIME [facility] Administration Bumetanide 1 mg 01/13/21 13:00 01/15/21 08:56 Bumetanide 1 Mg Tablet PO 1 mg DAILY [facility] Administration Protocol Hydralazine HCl 100 mg 01/13/21 09:00 01/15/21 08:56 Hydralazine Hcl 50 Mg Tablet PO 100 mg TID [facility] Administration Protocol Insulin Human Lispro 0 unit 01/07/21 18:06 01/15/21 11:14 Insulin Lispro 100 Unit/Ml 3 Ml Vial SUBCUT Not Given QIDACHS [facility] Protocol Lactulose 20 gm 01/13/21 12:30 01/14/21 08:01 Lactulose 20 Gm/30 Ml Solution PO 20 gm BID PRN Administration constipation Polyethylene Glycol 17 gm 01/11/21 10:52 01/14/21 08:01 Polyethylene Glycol 3350 17 Gm Powd.Pack PO 17 gm DAILY PRN Administration constipation Pregabalin 25 mg 01/14/21 11:00 01/15/21 08:56 Pregabalin 25 Mg Capsule PO 25 mg BID [facility] Administration Sodium Chloride 3 ml 01/08/21 00:00 01/15/21 08:57 0.9 % Sodium Chloride Flush 3 Ml Syringe IVFLUSH 3 ml QSHIFT [facility] Administration Labs CBC & Chem 7: 01/12/21 06:00 01/13/21 06:20 Microbiology Microbiology Results: Microbiology 01/07/21 16:14 Blood - Venous Blood Culture - Final No growth after 5 days. 01/07/21 14:35 Blood - Venous Blood Culture - Final No growth after 5 days. Assessment and Plan (1) Hypoxia: Status: Acute (2) Anemia: Status: Acute (3) Chronic renal insufficiency: Status: Acute (4) CKD (chronic kidney disease): Status: Acute Assessment and Plan: hospital d#9 for this 80yo F with diastolic CHF, CKD4, HTN, DM2 presented with dyspnea admitted with hypoxia, anemia much of which is chronic though FOBT+ and also found to have profound B12 deficiency; superimposed NAHID acute/chronic HFpEF - now euvolemic; changed furosemide IV gtt to PO bumetanide 01/13/21; overall -6L this admission acute hypoxic resp failure - resolved anemia, multifactorial- GI bleed [FOBT+], B12 deficiency, CKD - GI following, plan EGD + C-scope today; continue empiric PPI - transfused 1u pRBCs 01/07, 2u pRBCs 01/09, 2u pRBCs 01/10 with appropriate response in Hb B12 deficiency anemia - IF Ab negative. 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 Nephrology following; monitor renal function- SCr appears to have plateaued- new baseline? HTN continue amlodipine. Continue hydralazine titrated up to 100 mg t.i.d. this admission hyperK resolved ground glass infiltrate suspect resolving PNA/edema, no mass identified, COVID-19 negative by ROB[facility]E and PCR, respiratory issues resolved PVD - hold ASA for anemia, continue statin DM2 -d/c'ed MTF given renal insufficiency and B12 deficiency, continue correction-dose lispro stage 1 injury to coccyx - frequent turning, monitor skin VTE ppx - SCDs, no heparinoids given FOBT+ dispo - anticipate STR Tues
[2021-01-15 16:18] LABS: Glucose, Whole Blood 132 mg/dL (60-115)
--- NOTE | 2021-01-15 17:05 | PC.NURSE ---
Pt too sleepy after anesthesia from procedure today. Attempted to wake patient up to administer 1500 Hydralazine. Pt woke up and shook hands at this RN and refused to take medication. Pt then fell back asleep. BP 164/76. HR 83. RR 16. Dr. Chaparro made aware. Pt has Hydralazine scheduled again for 2100
[2021-01-15 20:38] LABS: Glucose, Whole Blood 193 mg/dL (60-115)
[2021-01-15] MEDS: Insulin Lispro 100 UNIT/ML 3 ML VIAL SUBCUT (21:11)
--- NOTE | 2021-01-15 21:15 | PC.NURSE ---
Pt still very drowsy due to anesthesia. This RN does not feel safe to give PO medications. Dr. Potts aware, stated OK to hold night medications. Will continue to monitor BP incase IV hydralazine is needed.
[2021-01-16] VITALS (8 sets, daily range): BP systolic 146–175; BP diastolic 64–80; PULSE 72–86; RESP 16–20; TEMP 36.1–37.1; O2SAT 90–95
[2021-01-16] MEDS: Acetaminophen 325 MG TABLET 650 MG PO ×2 (04:44→11:39)
[2021-01-16 06:44] LABS: Hematocrit 33.4 % (37-47); Hemoglobin 10.9 g/dl (12.0-16.0); Mean Corpuscular HGB Conc 32.6 g/dl (31.0-35.0); Mean Corpuscular Hemoglobin 29.9 pg (27.0-33.0); Mean Corpuscular Volume 91.8 fL (80-98); Mean Platelet Volume 11.4 fL (9.4-12.3); Platelet Count 270 X10*3/uL (160-400); Red Blood Count 3.64 X10*6/uL (4.20-5.50); Red Cell Distribution Width 15.1 % (11.0-16.0); White Blood Count 7.1 X10*3/uL (4.8-10.8)
[2021-01-16 07:16] LABS: Anion Gap 16 (12-20); Blood Urea Nitrogen 62 mg/dL (9-16); Calcium 8.6 mg/dL (8.4-10.2); Carbon Dioxide 27 mmol/L (22-29); Chloride 101 mmol/L (96-108); Estimated Glomerular Filt Rate 17; Glucose Fasting 135 mg/dL (60-99); Potassium 3.6 mmol/L (3.3-5.1); Sodium 140 mmol/L (135-145)
[2021-01-16 08:37] LABS: Glucose, Whole Blood 125 mg/dL (60-115)
[2021-01-16] MEDS: 0.9 % Sodium Chloride Flush 3 ML SYRINGE IVFLUSH ×2 (09:33→16:23)
[2021-01-16] MEDS: Pregabalin 25 MG CAPSULE PO ×2 (09:34→21:41)
[2021-01-16] MEDS: amLODIPine Besylate 10 MG TABLET PO (09:34)
[2021-01-16] MEDS: Bumetanide 1 MG TABLET PO (09:34)
[2021-01-16] MEDS: hydrALAZINE HCl 50 MG TABLET 100 MG PO ×3 (09:34→21:41)
--- NOTE | 2021-01-16 09:35 | P.PNIM_ITS ---
Subjective Subjective Date of Service: 01/16/21 Interval History: tahycardia this morning , weak , poor intake,anemia , gamma globin apathy Review of Systems seems awake answer few question- no in pain or fevers or chills Physical Exam Vital Signs: Vital Signs: Last Vital Signs Temp 97.0 F 01/16/21 08:00 Pulse 72 01/16/21 08:00 Resp 16 01/16/21 08:00 BP 171/77 H 01/16/21 08:00 Pulse Ox 94 01/16/21 08:00 Oxygen Flow Rate 4 01/07/21 14:17 Body Mass Index 36.3 Physical exam: HEENT: sclera anicteric, moist mucus membranes Lungs:seems fair entry ,slightly diminished bat bases Heart: regular rate and rhythm, no murmurs Abd: soft, non-tender, non-distended Ext: Skin: warm/well-perfused Neuro: alert and oriented x3, no focal findings Psych: appropriate affect Objective Data Current Medications Generic Name Dose Route Start Last Admin Trade Name Moralesq PRN Reason Stop Dose Admin Acetaminophen 650 mg 01/07/21 18:06 01/16/21 04:44 Acetaminophen 325 Mg Tablet PO 650 mg Q6H PRN Administration Pain, Mild (Pain Scale 1-3) Amlodipine Besylate 10 mg 01/08/21 09:00 01/16/21 09:34 Amlodipine Besylate 10 Mg Tablet PO 10 mg DAILY [facility] Administration Protocol Atorvastatin Calcium 40 mg 01/08/21 21:00 01/15/21 21:13 Atorvastatin Calcium 40 Mg Tablet PO Not Given BEDTIME [facility] Bumetanide 1 mg 01/13/21 13:00 01/16/21 09:34 Bumetanide 1 Mg Tablet PO 1 mg DAILY [facility] Administration Protocol Hydralazine HCl 100 mg 01/13/21 09:00 01/16/21 09:34 Hydralazine Hcl 50 Mg Tablet PO 100 mg TID [facility] Administration Protocol Insulin Human Lispro 0 unit 01/07/21 18:06 01/16/21 08:24 Insulin Lispro 100 Unit/Ml 3 Ml Vial SUBCUT Not Given QIDACHS [facility] Protocol Lactulose 20 gm 01/13/21 12:30 01/14/21 08:01 Lactulose 20 Gm/30 Ml Solution PO 20 gm BID PRN Administration constipation Polyethylene Glycol 17 gm 01/11/21 10:52 01/14/21 08:01 Polyethylene Glycol 3350 17 Gm Powd.Pack PO 17 gm DAILY PRN Administration constipation Pregabalin 25 mg 01/14/21 11:00 01/16/21 09:34 Pregabalin 25 Mg Capsule PO 25 mg BID [facility] Administration Sodium Chloride 3 ml 01/08/21 00:00 01/16/21 09:33 0.9 % Sodium Chloride Flush 3 Ml Syringe IVFLUSH 3 ml QSHIFT [facility] Administration Labs CBC & Chem 7: 01/16/21 05:24 01/16/21 05:24 Microbiology Microbiology Results: Microbiology 01/07/21 16:14 Blood - Venous Blood Culture - Final No growth after 5 days. 01/07/21 14:35 Blood - Venous Blood Culture - Final No growth after 5 days. Assessment and Plan (1) Anemia: Status: Acute (2) Hypoxia: Status: Acute (3) Chronic renal insufficiency: Status: Acute (4) CKD (chronic kidney disease): Status: Acute Assessment and Plan: hospital d#10 for this 80yo F with diastolic CHF, CKD4, HTN, DM2 presented with dyspnea admitted with hypoxia, anemia much of which is chronic though FOBT+ and also found to have profound B12 deficiency; superimposed NAHID 1.acute/chronic HFpEF- now euvolemic; changed furosemide IV gtt to PO bumetanide 01/13/21; overall -6L this admission 2.acute hypoxic resp failure- resolved 3.anemia, multifactorial- GI bleed [FOBT+], B12 deficiency, CKD - GI following, plan EGD + C-scope today; continue empiric PPI - transfused 1u pRBCs 01/07, 2u pRBCs 01/09, 2u pRBCs 01/10 with appropriate response in Hb 4.B12 deficiency anemia- IF Ab negative. started parenteral replacement with 1000 mcg daily 01/08-01/14, then weekly x4wk, then monthly- can be done at rehab or by [facility] 5. 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 Nephrology following; monitor renal function- SCr appears to have plateaued- new baseline? 7.HTN:continue amlodipine. Continue hydralazine titrated up to 100 mg t.i.d. this admission 8. hyperK:resolved 9.ground glass infiltrate:suspect resolving PNA/edema, no mass identified, COV ID-19 negative by [facility]E and PCR, respiratory issues resolved 10:PVD- hold ASA for anemia, continue statin 11: DM2-d/c'ed MTF given renal insufficiency and B12 deficiency, continue correction-dose lispro 12:stage 1 injury to coccyx- frequent turning, monitor skin VTE ppx - SCDs, no heparinoids given FOBT+ dispo - anticipate STR Tues
[2021-01-16] MEDS: Omeprazole 20 MG CAPSULE.DR PO (09:53)
[2021-01-16 11:06] LABS: Glucose, Whole Blood 208 mg/dL (60-115)
[2021-01-16] MEDS: Insulin Lispro 100 UNIT/ML 3 ML VIAL SUBCUT ×3 (11:39→21:41)
--- NOTE | 2021-01-16 11:45 | MHC.CM.PN ---
CM spoke with Patient's Daughter/TRAINER/HCP/Emilee over the phone at [phone] regarding PT's recommendation for STR, Per Emilee's request, referrals will be made to area SNFs and options will then be presented to Patient/family. CM will follow for dc planning.
--- NOTE | 2021-01-16 12:40 | MHC.CDI.CONC ---
CDI Concurrent Query Service Date: 01/16/21 Documentation Clarification: Please clarify if you are treating a probable/suspected/likely or confirmed: Acute blood loss anemia Chronic blood loss anemia Acute on chronic blood loss anemia Please specify if known -seems multifactorial : acute on ch anemia -etiology unclear .had endoscopy yetserday-Gi report pending Provider Response: Other Other Diagnosis: please see above. PLEASE DO NOT DELETE/MODIFY EXISTING CONTENT Additional information is needed in order to code to the highest accuracy and appropriate Severity of Illness (SOI). Please clarify the information noted below in your progress notes and discharge summary. Risk Factors/Clinical Indicators/Treatments Anemia, multifactorial, GI bleed, B12 deficiency Transfuse 4 units PRBC's HGB 6.5 HCT 24.8 Symptomatic anemia with cardiorenal syndrome. CDS: Jeannie Alexis [facility], [facility]IS Contact Number: [phone]. [phone] Please Review the information above and exercise your independent professional judgment in responding to the query. If you concur, pleas document in the PROGRESS NOTES and DISCHARGE SUMMARY. If you do not agree with the query, please document in the query above. THIS QUERY IS PART OF THE PERMANENT MEDICAL RECORD
--- NOTE | 2021-01-16 14:17 | HO.POSTANES ---
Post Anesthesia Evaluation Post Anesthesia Evaluation Vital Signs: Vital Signs Temp Pulse Resp BP Pulse Ox 01/16/21 13:26 81 146/64 H 93 01/16/21 11:08 97.1 F 81 20 146/64 H 93 01/16/21 08:00 97.0 F 72 16 171/77 H 94 01/16/21 04:00 98.7 F 77 18 164/64 H 94 Anesthesia: Monitored Mental Status: Awake Pain Control: Satisfactory Nausea/Vomiting: None Hydration: Adequate Anesthesia-Related Issues: No Anes. Related Issues
--- NOTE | 2021-01-16 14:54 | MHC.CM.PN ---
Per afternoon ROUNDS, Patient may be ready for dc to SNF tomorrow. CM spoke with Daughter/HCP/Emilee @ [phone] and [facility] is Patient/family's first choice.MIKE has asked [facility] to begin CCA auth process today.CM will follow for possible need to adjust the dc plan.
[2021-01-16 16:22] LABS: Glucose, Whole Blood 232 mg/dL (60-115)
--- NOTE | 2021-01-16 18:07 | P.PNNP_ITS ---
Subjective Subjective Date of Service: 01/16/21 Principal diagnosis: CHF, anemia. Interval history: Events noted; All recent data reviewed Physical Exam Vital Signs: Vital Signs: Last Vital Signs Temp 98 F 01/16/21 15:03 Pulse 82 01/16/21 15:03 Resp 18 01/16/21 15:03 BP 149/74 H 01/16/21 15:03 Pulse Ox 93 01/16/21 15:03 Oxygen Flow Rate 4 01/07/21 14:17 Body Mass Index 36.3 Const: General: no acute distress Eyes: EOM: EOMs intact bilaterally Neck: Neck: Yes supple Resp: Auscultation: diminished lung sounds Cardio: Rate: regular rate GI: Palpation (GI): Soft to palpation Neuro: General: moves all extremities Objective Data Labs CBC & Chem 7: 01/16/21 05:24 01/16/21 05:24 Labs: Laboratory Results - last 24 hr 01/15/21 01/16/21 01/16/21 20:34 05:24 05:24 WBC 7.1 RBC 3.64 L Hgb 10.9 L Hct 33.4 L MCV 91.8 MCH 29.9 MCHC 32.6 RDW 15.1 Plt Count 270 MPV 11.4 Absolute Nucleated RBC 0.000 Nucleated RBC % (auto) 0.0 Sodium 140 Potassium 3.6 Chloride 101 Carbon Dioxide 27 Anion Gap 16 BUN 62 H Creatinine 2.74 H Estim Creat Clear Calc 17.0 Estimated GFR 17 POC Glucose 193 H Fasting Glucose 135 H Calcium 8.6 01/16/21 01/16/21 01/16/21 08:34 11:02 16:18 WBC RBC Hgb Hct MCV MCH MCHC RDW Plt Count MPV Absolute Nucleated RBC Nucleated RBC % (auto) Sodium Potassium Chloride Carbon Dioxide Anion Gap BUN Creatinine Estim Creat Clear Calc Estimated GFR POC Glucose 125 H 208 H 232 H Fasting Glucose Calcium Microbiology Microbiology Results: Microbiology 01/07/21 16:14 Blood - Venous Blood Culture - Final No growth after 5 days. 01/07/21 14:35 Blood - Venous Blood Culture - Final No growth after 5 days. Assessment & Plan Assessment and plan (1) CKD (chronic kidney disease): Status: Acute Assessment and Plan: NAHID due to Acute on chronic diastolic CHF and symptomatic anemia with Cardio renal syndrome- improved/stable Continue current supportive care; Shall arrange close office follow up when D/Freddy Time Spent With Patient Time: Total time spent is greater than 50% in coordination of care (as john mondragon) at patient's floor/unit and/or counseling patient: Procedures Date of Service Date of Service: 01/16/21
[2021-01-16 19:43] LABS: Glucose, Whole Blood 242 mg/dL (60-115)
[2021-01-16] MEDS: Atorvastatin Calcium 40 MG TABLET PO (21:41)
[2021-01-17] MEDS: 0.9 % Sodium Chloride Flush 3 ML SYRINGE IVFLUSH ×2 (00:50→08:17)
[2021-01-17] MEDS: Acetaminophen 325 MG TABLET 650 MG PO ×2 (00:51→08:16)
[2021-01-17 03:58] VITALS: BP 170/77; PULSE 83; RESP 17; TEMP 36.1; O2SAT 94
[2021-01-17] MEDS: Omeprazole 20 MG CAPSULE.DR PO (05:20)
[2021-01-17 07:09] LABS: Glucose, Whole Blood 138 mg/dL (60-115)
[2021-01-17 07:29] LABS: Anion Gap 17 (12-20); Blood Urea Nitrogen 63 mg/dL (9-16); Calcium 8.6 mg/dL (8.4-10.2); Carbon Dioxide 22 mmol/L (22-29); Chloride 102 mmol/L (96-108); Creatinine Clr Calc Pharmacy 17.3; Estimated Glomerular Filt Rate 17; Glucose Random 146 mg/dL (60-115); Potassium 4.2 mmol/L (3.3-5.1); Sodium 137 mmol/L (135-145)
[2021-01-17 07:49] VITALS: BP 155/71; PULSE 76; RESP 18; TEMP 36.4; O2SAT 94
[2021-01-17] MEDS: Bumetanide 1 MG TABLET PO (08:16)
[2021-01-17] MEDS: hydrALAZINE HCl 50 MG TABLET 100 MG PO (08:16)
[2021-01-17] MEDS: amLODIPine Besylate 10 MG TABLET PO (08:16)
[2021-01-17] MEDS: Pregabalin 25 MG CAPSULE PO (08:17)
[2021-01-17 11:00] VITALS: O2SAT 94
[2021-01-17 11:00] LABS: Glucose, Whole Blood 218 mg/dL (60-115)
[2021-01-17 11:06] VITALS: BP 154/67; PULSE 76; RESP 18; TEMP 36.6; O2SAT 94
--- NOTE | 2021-01-17 11:18 | PM.DS ---
DS: Providers Provider Date of Service: 01/17/21 Date of admission: 01/07/21 16:04 Primary care physician: Kay Mata MD Consults: 01/07/21 18:06 Consult to Gastroenterology Routine Consulting Provider: Garrett Sharma Reason for consultation: anemia 01/08/21 08:50 Consult to Nephrology Routine Consulting Provider: [facility] Reason for consultation: Nahid/CKD 01/09/21 08:45 Consult to Cardiology Routine Consulting [place] [facility] Reason for consultation: HFpEF 01/12/21 08:31 Consult to Hematology / Oncology Routine Consulting Provider: [facility] Reason for consultation: IgG lambda monoclonal band present. DS: Diagnosis Discharge Diagnosis (1) CKD (chronic kidney disease): Status: Acute (2) Acute respiratory failure with hypoxia: Status: Acute (3) Congestive heart failure: Status: Acute (4) Anemia: Status: Acute (5) PVD (peripheral vascular disease): Status: Acute (6) Diabetes: Status: Acute (7) Hypertension: Status: Acute (8) NAHID (acute kidney injury): Status: Acute (9) B12 deficiency: Status: Acute (10) Monoclonal gammopathies: Status: Acute DS: Medications Discharge Medications Home Medications: Home Medications Medication Instructions Recorded Confirmed amlodipine 10 mg PO DAILY 01/07/21 01/07/21 atorvastatin 40 mg PO DAILY 01/07/21 01/07/21 Previous Rx's Medication Instructions Recorded miscellaneous medical supply #1 ea 10/17/20 miscellaneous medical supply #1 ea 12/26/20 acetaminophen 650 mg PO Q6H PRN #0 tab 01/17/21 bumetanide 1 mg PO DAILY #0 tab 01/17/21 cyanocobalamin (vitamin B-12) 1,000 mcg PO DAILY #0 tab 01/17/21 [Vitamin B-12] hydralazine 100 mg PO TID #0 tab 01/17/21 insulin lispro [Humalog U-100 See Protocol SUBCUT QIDACHS #0 ml 01/17/21 Insulin] lactulose 20 g PO BID PRN #0 ml 01/17/21 omeprazole 20 mg PO DAILY@0630 #0 cap 01/17/21 polyethylene glycol 3350 17 g PO DAILY PRN #0 ea 01/17/21 pregabalin [Lyrica] 25 mg PO BID #0 cap 01/17/21 DS: Summary Hospital Course Hospital Course: patient was admitted For acute hypoxic respiratory failure secondary to acute on chronic diastolic CHF. Patient was diuresed with Lasix drip and was -6 L during admission. She was then transitioned to Bumex orally. Hypoxia resolved and shortness of breath significantly improved. Patient was noted to have B12 deficiency, she was given IM replacement, will continue on oral, metformin has been discontinued as it can cause B12 deficiency. IF Antibody was negative. She was also noted to have an IgG lambda monoclonal band, she should follow-up with Hematology as outpatient. Patient had acute kidney injury on top of chronic kidney disease IV, creatinine plateaued around 2.7 and is likely patient's new baseline. She is following closely with Nephrology. patient was noted to be hypertensive and hydralazine was titrated up to 100 mg t.i.d. patient had also presented with significant anemia with hemoglobin 6.5. She was transfused and hemoglobin responded appropriately. She underwent EGD and colonoscopy which showed duodenitis, erosions, ulceration, gastritis, esophagitis, polyps, internal hemorrhoids, diverticular disease. She was put on PPI and will follow up Time Spent with Patient Time attestation: Total time spent providing and/or coordinating discharge services: Discharge coordination time: Greater than 30 minutes Quality: Stroke Does the patient have a stroke diagnosis?: No Physical Exam Vital Signs: Vital Signs: Last Vital Signs Temp 97.8 F 01/17/21 11:06 Pulse 76 01/17/21 11:06 Resp 18 01/17/21 11:06 BP 154/67 H 01/17/21 11:06 Pulse Ox 94 01/17/21 11:06 Oxygen Flow Rate 4 01/07/21 14:17 Body Mass Index 36.3 General: AO X 3, no acute distress Resp: CTA bilateral CVS: S1,S2,RRR GI: soft, non tender, non distended Neuro: motor grossly intact Psych: appropriate affect DS: Data Data Completed and Pending Completed studies during hospitalization [Text1]: Pending at discharge 01/15/21 12:14 Surgical [PTH] Routine Labs on day of discharge: Laboratory Results - last 24 hr 01/16/21 01/16/21 01/17/21 16:18 19:34 05:49 Sodium 137 Potassium 4.2 Chloride 102 Carbon Dioxide 22 Anion Gap 17 BUN 63 H Creatinine 2.70 H Estim Creat Clear Calc 17.3 Estimated GFR 17 POC Glucose 232 H 242 H Random Glucose 146 H Calcium 8.6 01/17/21 01/17/21 07:01 10:52 Sodium Potassium Chloride Carbon Dioxide Anion Gap BUN Creatinine Estim Creat Clear Calc Estimated GFR POC Glucose 138 H 218 H Random Glucose Calcium Discharge Plan Discharge Patient Disposition: Xfer SNF Discharge Diagnosis: chf, nahid, gi bleed Referrals: Abdulkadir Oneal MD [Physician] - 1 Week Sonia Maldonado MD [Physician] - 1 Week Garrett Sharma MD [Physician] - 1 Week Kay Chávez MD [Primary Care Provider] - 1 Week Discharge Medications: New acetaminophen 325 mg Tablet 650 mg PO Q6H PRN (Reason: Pain, Mild (Pain Scale 1-3)) Qty: 0 RF: 0 hydralazine 50 mg Tablet 100 mg PO TID Qty: 0 RF: 0 polyethylene glycol 3350 17 gram Powder In Packet 17 g PO DAILY PRN (Reason: constipation) Qty: 0 RF: 0 omeprazole 20 mg Capsule,Delayed Release(Dr/Ec) 20 mg PO DAILY@0630 Qty: 0 RF: 0 bumetanide 1 mg Tablet 1 mg PO DAILY Qty: 0 RF: 0 pregabalin [Lyrica] 25 mg Capsule 25 mg PO BID Qty: 0 RF: 0 lactulose 20 gram/30 mL Solution 20 g PO BID PRN (Reason: constipation) Qty: 0 RF: 0 insulin lispro [Humalog U-100 Insulin] 100 unit/mL Solution See Protocol unit subcut QIDACHS Qty: 0 RF: 0 cyanocobalamin (vitamin B-12) [Vitamin B-12] 1,000 mcg Tablet 1,000 mcg PO DAILY Qty: 0 RF: 0 Continued (DME) miscellaneous medical supply Misc See Rx Instructions .MEDSUPPLY Qty: 1 RF: 0 atorvastatin 40 mg Tablet 40 mg PO DAILY RF: 0 amlodipine 10 mg Tablet 10 mg PO DAILY RF: 0 (DME) miscellaneous medical supply Misc See Rx Instructions .MEDSUPPLY Qty: 1 RF: 0 Discontinued chlorthalidone 25 mg Tablet 25 mg PO DAILY RF: 0 metformin 1,000 mg Tablet 1,000 mg PO BID RF: 0 aspirin 81 mg Tablet 81 mg PO DAILY RF: 0 losartan 100 mg Tablet 100 mg PO DAILY RF: 0 gabapentin 300 mg Tablet 300 mg PO DAILY RF: 0 Discharge Orders: Discharge Order (Routine); Ordered 01/17/21 Ordered By: Xavier Chaparro Diet: advance to usual diet Activity on Discharge: As tolerated Stand Alone Forms: Patient Portal Discharge page Care Plan Goals: recovery Health Concerns: chf, anemia, b12 defeciency, igg lambda monoclonal band, nahid on ckd Plan of Treatment: bumex for chf, b12 replacement, hold metformin, follow up gi, continue ppi, follow up hematology, follow up nephro Assessment: see above
[2021-01-17] MEDS: Insulin Lispro 100 UNIT/ML 3 ML VIAL SUBCUT (11:31)
[2021-01-17] MEDS: Cyanocobalamin (Vitamin B-12) 1,000 MCG TABLET 1000 MCG PO (11:31)
--- NOTE | 2021-01-17 11:50 | MHC.CM.PN ---
Patient has been medically cleared for dc to STR/SNF today. Patient will dc to the first choice SNF/[facility] today at noon, via [facility]. Patient and family/Daughter/Emilee @ [phone] are aware of and in agreement with the dc plan for STR. IMM addressed with Patient at bedside, original given to Patient in [place]i and a copy has been placed on the chart.
--- NOTE | 2021-01-17 12:16 | PM.PNNEP ---
Subjective Subjective Date of Service: 01/17/21 Principal diagnosis: CHF, anemia. Interval history: Events noted; All recent data reviewed Physical Exam Vital Signs: Vital Signs: Last Vital Signs Temp 97.8 F 01/17/21 11:06 Pulse 76 01/17/21 11:06 Resp 18 01/17/21 11:06 BP 154/67 H 01/17/21 11:06 Pulse Ox 94 01/17/21 11:06 Oxygen Flow Rate 4 01/07/21 14:17 Body Mass Index 36.3 Const: General: no acute distress Eyes: EOM: EOMs intact bilaterally Neck: Neck: Yes supple Resp: Auscultation: diminished lung sounds Cardio: Jugular venous distension: no JVD GI: Palpation (GI): Soft to palpation Neuro: General: moves all extremities Objective Data Labs CBC & Chem 7: 01/16/21 05:24 01/17/21 05:49 Labs: Laboratory Results - last 24 hr 01/16/21 01/16/21 01/17/21 16:18 19:34 05:49 Sodium 137 Potassium 4.2 Chloride 102 Carbon Dioxide 22 Anion Gap 17 BUN 63 H Creatinine 2.70 H Estim Creat Clear Calc 17.3 Estimated GFR 17 POC Glucose 232 H 242 H Random Glucose 146 H Calcium 8.6 01/17/21 01/17/21 07:01 10:52 Sodium Potassium Chloride Carbon Dioxide Anion Gap BUN Creatinine Estim Creat Clear Calc Estimated GFR POC Glucose 138 H 218 H Random Glucose Calcium Microbiology Microbiology Results: Microbiology 01/07/21 16:14 Blood - Venous Blood Culture - Final No growth after 5 days. 01/07/21 14:35 Blood - Venous Blood Culture - Final No growth after 5 days. Assessment & Plan Assessment and plan (1) NAHID (acute kidney injury): Status: Acute Assessment and Plan: NAHID due to Acute on chronic diastolic CHF and symptomatic anemia with Cardio renal syndrome- improved/stable Continue current supportive care; Shall arrange close office follow up if D/Freddy Time Spent With Patient Time: Total time spent is greater than 50% in coordination of care (as documented) at patient's floor/unit and/or counseling patient: Procedures Date of Service Date of Service: 01/17/21
== END 2021-01-17 13:05 | disposition skilled nursing facility (03) | DRG 377 ==
LOC: HO.ED 15:28 → HO.EDOVER 16:16 → HO.IMC 17:58
PROVIDERS: Family Medicine; Internal Medicine; Internal Medicine Gastroenterology; Internal Medicine Nephrology; Admitting Provider Internal Medicine; Emergency Provider Emergency Medicine; PCP Internal Medicine; Visit Provider Internal Medicine
PROC: 0DB98ZX Excision of Duodenum, Via Natural or Artificial Opening Endoscopic, Diagnostic (ICD-10-PCS; principal; 2021-01-15 16:30)
DX: K29.81 Duodenitis with bleeding (principal); J96.01 Acute respiratory failure with hypoxia; I50.33 Acute on chronic diastolic (congestive) heart failure; I13.0 Hypertensive heart and chronic kidney disease with heart failure and stage 1 through stage 4 chronic kidney disease, or unspecified chronic kidney disease; N18.4 Chronic kidney disease, stage 4 (severe); N17.9 Acute kidney failure, unspecified; K26.4 Chronic or unspecified duodenal ulcer with hemorrhage; K29.71 Gastritis, unspecified, with bleeding; K20.91 Esophagitis, unspecified with bleeding; K57.31 Diverticulosis of large intestine without perforation or abscess with bleeding; E11.51 Type 2 diabetes mellitus with diabetic peripheral angiopathy without gangrene; E87.5 Hyperkalemia; L89.151 Pressure ulcer of sacral region, stage 1; D63.1 Anemia in chronic kidney disease; D47.2 Monoclonal gammopathy; E53.8 Deficiency of other specified B group vitamins; E11.22 Type 2 diabetes mellitus with diabetic chronic kidney disease; K63.5 Polyp of colon; K64.8 Other hemorrhoids; Z20.822 Contact with and (suspected) exposure to COVID-19; Z79.4 Long term (current) use of insulin; Z79.899 Other long term (current) drug therapy
CPT/HCPCS: 36415; 71045; 71250; 80048; 80076; 82272; 82607; 82728; 82746; 82784; 82947; 83540; 83605; 83615; 83690; 83735; 83880; 84484; 85014; 85018; 85025; 85027; 85045; 86334; 86340; 86769; 86850; 86900; 86901; 86923; 87040; 87633; 87635; 88305; 88342; 93005; 93306; 93971; 97110; 97116; 97163; 97530; 99285; 99291; J1940; P9016

== ENCOUNTER → 2021-02-27 13:37 | Outpatient (BNVA) | payer MEDICARE, SELFPAY | PROVIDERS: PCP Internal Medicine; Referring Provider Internal Medicine; Visit Provider Nurse Practitioner Family | DX: I50.9 Heart failure, unspecified (principal); I15.0 Renovascular hypertension; D64.9 Anemia, unspecified; R60.0 Localized edema; N18.4 Chronic kidney disease, stage 4 (severe) | CPT/HCPCS: 99212 ==

== ENCOUNTER 2021-03-03 13:56 | Inpatient (IN) | payer MEDICARE, SELFPAY ==
[2021-03-03] VITALS (8 sets, daily range): BP systolic 158–190; BP diastolic 66–94; PULSE 75–88; RESP 18–22; TEMP 36.5–36.8; O2SAT 90–94; BMI 35.2
--- NOTE | 2021-03-03 | ECG_ITS ---
Test Reason : CHEST PAIN Blood Pressure : / mmHG Vent. Rate : 082 BPM Atrial Rate : 082 BPM P-R Int : 132 ms QRS Dur : 100 ms QT Int : 406 ms P-R-T Axes : 058 -06 063 degrees QTc Int : 474 ms Normal sinus rhythm Normal ECG When compared with ECG of 07-JAN-2021 14:42, No significant change was found Referred By: Karla Wheeler Electronically Signed By:PATRICIA SOLIZ
--- NOTE | ~2021-03-03 | XR_ITS ---
EXAMINATION: XR CHEST CLINICAL INFORMATION: Hypoxia COMPARISON: Previous chest x-ray most recent from yesterday TECHNIQUE: 2 views of the chest were obtained. FINDINGS: The cardiac silhouette is enlarged. There may be pulmonary venous redistribution. There is left lower lobe airspace disease probably representing pneumonia. There is a small left pleural effusion. This appears unchanged from yesterday's exam. There is no right pleural effusion. There are degenerative changes of the spine. XR/XR chest 2V IMPRESSION: Stable enlargement of the cardiac silhouette and question pulmonary venous redistribution. Left lower lobe airspace disease probably representing pneumonia and small left pleural effusion.
--- NOTE | ~2021-03-03 | US_ITS ---
EXAMINATION: ULTRASOUND EXTREMITY NONVASCULAR CLINICAL INFORMATION: Rule out right antecubital fossa abscess COMPARISON: None TECHNIQUE: Grayscale and color imaging of the soft tissues of the right antecubital fossa using a linear transducer FINDINGS: There is a 2.9 x 1.3 x 0.7 cm complex fluid collection seen in the right antecubital fossa. Ultrasound appearance is nonspecific. Differential would include an abscess or liquefying hematoma. US/US extremity nonvascular IMPRESSION: 2.9 x 1.3 x 0.7 cm complex fluid collection in the right antecubital fossa. Differential would include small abscess and liquefying hematoma.
--- NOTE | ~2021-03-03 | XR_ITS ---
EXAMINATION: XR CHEST CLINICAL INFORMATION: Respiratory distress COMPARISON: Chest radiograph 03/03/[address] chest 01/08/2020 TECHNIQUE: Frontal view of the chest was obtained. FINDINGS: Again seen is cardiomegaly and chronic pulmonary venous central prominence without gross edema. Retrocardiac opacity with obscuration of the left hemidiaphragm and probable small left effusion again noted. Degenerative changes present in the spine as well as both shoulders XR/XR chest 1V IMPRESSION: Cardiomegaly with left lower lobe atelectasis/collapse with small left effusion, unchanged.
--- NOTE | ~2021-03-03 | XR_ITS ---
EXAMINATION: XR CHEST CLINICAL INFORMATION: Dyspnea COMPARISON: 01/07/2001 TECHNIQUE: Frontal view of the chest was obtained. FINDINGS: Cardiac silhouette is mildly enlarged but unchanged in size and contour compared to 01/07/2021. The central pulmonary vessels are chronically enlarged. No overt pulmonary edema. The left lateral costophrenic sulcus is ill-defined, likely obscured by a persistent small pleural effusion. The aeration of the right lung base is improved compared to 01/07/2021. There is persistent opacification in the retrocardiac area of the left lower lobe. The visualized bones are intact. XR/XR chest 1V IMPRESSION: * Cardiomegaly and pulmonary vascular congestion without overt edema. * The left basilar opacity is similar in appearance compared to 01/07/2021. This likely caused by a small pleural effusion and basilar atelectasis. * The aeration of the right lower lung is improved compared to 01/07/2021.
--- NOTE | 2021-03-03 14:12 | ED_ITS ---
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 elicited complaint: shortness of breath Pertinent past history: congestive heart failure Onset (ago): day(s) (4) Context: other (states her VNA might have decreased her diuretics but she is not sure) Timing: progressively worsening Severity: moderate Exacerbating factors: lying flat and exertion Relieving factors: nothing Known history of: congestive heart failure Associated symptoms: orthopnea (3 pillows) and other (LE swelling) Treatment prior to arrival: oxygen and aspirin Related Data Home Medications Medication Instructions Recorded Confirmed amlodipine 10 mg PO DAILY 01/07/21 03/03/21 atorvastatin 40 mg PO DAILY 01/07/21 03/03/21 multivitamin with folic acid 400 1 tab PO DAILY 03/02/21 03/03/21 mcg tablet bumetanide 1 mg PO DAILY 03/03/21 03/03/21 sitagliptin [Januvia] 1 tab PO DAILY 03/03/21 03/03/21 Previous Rx's Medication Instructions Recorded miscellaneous medical supply #1 ea 10/17/20 miscellaneous medical supply #1 ea 12/26/20 cyanocobalamin (vitamin B-12) 1,000 mcg PO DAILY #0 tab 01/17/21 [Vitamin B-12] hydralazine 100 mg PO TID #0 tab 01/17/21 pregabalin [Lyrica] 25 mg PO BID #0 cap 01/17/21 Allergies Allergy/AdvReac Type Severity Reaction Status Date / Time Iodinated Contrast Media Allergy Unknown UNKNOWN Verified 12/26/20 13:27 [IODINATED CONTRAST MEDIA] Review of Systems 2 Review of Systems: Constitutional : No Fever, No Chills ENT/Mouth : No sore throat, No Rhinorrhea, No Swallowing Difficulty Eyes: No Eye Pain, No Swelling, No Redness Cardiovascular : No Chest Pain, positive SOB, pos Orthopnea, positive Edema Respiratory : No Cough, No Sputum, No Wheezing, positive dyspnea Gastrointestinal : No Nausea, No Vomiting, No Diarrhea, No abdominal Pain, No Hematochezia, No Melena Genitourinary : No Dysuria, No Urinary Frequency, No Hematuria Musculoskeletal : No joint pain, No Myalgias Skin : No Skin Lesions, No rash Neuro : No Weakness, No Numbness, No Dizziness, No Headache Psych : No Anxiety/Panic, No Depression Heme/Lymph: No Bruising, No Lymphadenopathy Endocrine : No Polyuria, No Polydipsia All other systems reviewed and are negative PMFSH Past Medical History Attestation statement: The following information was validated with the patient. Medical History CKD (chronic kidney disease) Diabetes Femoral artery stenosis High cholesterol Hypertension Lower extremity edema Psoriasis of scalp PVD (peripheral vascular disease) Surgical History History of female sterilization History of shoulder surgery Family History Family History Father No problems noted. Mother No problems noted. Social History Social History Household Members: Children Household Members Other:: Daughter Housing: House Do you presently have visiting nurse or other home services: No Alcohol intake: never Patient Tobacco Use Status: Tobacco use Unknown Use of substances other than those prescribed or required for medical reasons: Unknown Advance Directives: No Advance Directives Information Provided: No Advance Directives Date on File: 01/08/21 service: No Current occupational status: retired and disabled Physical Exam Vital Signs: Vital Signs: Last Vital Signs Temp 97.8 F 03/03/21 16:44 Pulse 75 03/03/21 16:44 Resp 22 H 03/03/21 16:44 BP 160/77 H 03/03/21 16:44 Pulse Ox 93 03/03/21 16:44 Oxygen Flow Rate 2 03/03/21 14:05 Body Mass Index 35.2 Appearance: Alert. Oriented X3. No acute distress. Eyes: Pupils equal, round and reactive to light. ENT: Pharynx normal. Neck: Normal inspection. Neck supple. CVS: Normal heart rate and rhythm. Pulses normal. Respiratory: no respiratory distress. Breath sounds rales in both bases R>L Abdomen: Soft and nontender. Rectal: light brown stool Skin: Skin warm and dry. Normal skin color. Normal skin turgor. Extremities: 2 to 3+ pitting lower extremity edema. No calf ttp Neuro: Oriented X 3. No motor deficit. No sensory deficit. Course Course Course Narrative: EF 40% at bedside hemoglobin 7.6 hx of anemia in the past, 1 UPRBC ordered may need repeat lasix MDM - SOB/Dyspnea MDM Narrative Medical decision making narrative: 80 yo female with hx of CHF on bumex, CKD, GERD, HTN comes in with 4 days of LE swelling and orthopnea - she has had worse STEWART and orthopnea called 911 today found her to be in the high 80s, at this time she is edematous with rales - suspect CHF exacerbation at this time, anticipate the patient will be admitted for further diuresis Lab Data Result diagrams: 03/03/21 15:22 03/03/21 15:22 Labs: Lab Results 03/03/21 03/03/21 03/03/21 Range/Units 14:50 15:08 15:22 WBC 7.8 (4.8-10.8) X10*3/uL RBC 2.54 L D (4.20-5.50) X10*6/uL Hgb 7.6 L D (12.0-16.0) g/dl Hct 23.9 L D (37-47) % MCV 94.1 (80-98) fL MCH 29.9 (27.0-33.0) pg MCHC 31.8 (31.0-35.0) g/dl RDW 16.5 H (11.0-16.0) % Plt Count 247 (160-400) X10*3/uL MPV 11.0 (9.4-12.3) fL Immature Gran % (Auto) 1.3 H (0.0-0.4) % Neut % (Auto) 80.9 H (45-73) % Lymph % (Auto) 10.4 L (20-40) % [place] % (Auto) 6.3 (2-11) % Eos % (Auto) 1.0 (0-4) % Baso % (Auto) 0.1 (0-2) % Lymph # (Auto) 0.8 L (1.2-4.9) X10*3/uL [place] # (Auto) 0.5 (0.1-1.2) X10*3/uL Eos # (Auto) 0.1 (0.0-0.4) X10*3/uL Baso # (Auto) 0.0 (0.0-0.2) X10*3/uL Abs Immat Gran (auto) 0.10 H (0.00-0.03) X10*3/uL Absolute Neuts (auto) 6.3 (2.0-8.3) X10*3/uL Absolute Nucleated RBC 0.000 (0.0-0.012) X10*3/uL Nucleated RBC % (auto) 0.0 (0.0-0.2) /100WBC Sodium (135-145) mmol/L Potassium (3.3-5.1) mmol/L Chloride (96-108) mmol/L Carbon Dioxide (22-29) mmol/L Anion Gap (12-20) BUN (9-16) mg/dL Creatinine (0.5-1.4) mg/dL Estim Creat Clear Calc Estimated GFR Random Glucose (60-115) mg/dL Calcium (8.4-10.2) mg/dL Magnesium (1.6-2.6) mg/dL Total Bilirubin (0.0-1.0) mg/dL Direct Bilirubin (0.0-0.5) mg/dL AST (5-31) U/L ALT (0-31) U/L Alkaline Phosphatase (39-117) U/L Troponin I High Sens (<3.5-17.0) ng/L B-Natriuretic Peptide (<100) pg/mL Total Protein (6.5-8.0) g/dL Albumin (3.5-5.0) g/dL Urine Color YELLOW Urine Appearance CLEAR Urine pH 6.0 (5.0-8.0) Ur Specific Henriette 1.020 (1.005-1.025) Urine Protein 3+ H (NEG-TRACE) MG/DL Urine Glucose (UA) 100 H (NEG) MG/DL Urine Ketones NEG (NEG) MG/DL Urine Blood NEG (NEG) Urine Nitrite NEG (NEG) Ur Leukocyte Esterase NEG (NEG) Urine RBC 0-2 (0) /HPF Urine WBC 0-2 (0-4) /HPF Ur Squamous Epith Cells 2+ /LPF Ur Renal Epithelial Cell 1+ /LPF Urine Bacteria TRACE /LPF Hyaline Casts 0-2 /LPF Granular Casts 0-2 /LPF WBC Casts NONE /LPF Stool Occult Blood (NEGATIVE) COVID-19 (ROBBIE) Negative (Negative) COVID-19 Clin Com See Note Blood Type Crossmatch 03/03/21 03/03/21 03/03/21 Range/Units 15:22 15:22 16:45 WBC (4.8-10.8) X10*3/uL RBC (4.20-5.50) X10*6/uL Hgb (12.0-16.0) g/dl Hct (37-47) % MCV (80-98) fL MCH (27.0-33.0) pg MCHC (31.0-35.0) g/dl RDW (11.0-16.0) % Plt Count (160-400) X10*3/uL MPV (9.4-12.3) fL Immature Gran % (Auto) (0.0-0.4) % Neut % (Auto) (45-73) % Lymph % (Auto) (20-40) % [place] % (Auto) (2-11) % Eos % (Auto) (0-4) % Baso % (Auto) (0-2) % Lymph # (Auto) (1.2-4.9) X10*3/uL [place] # (Auto) (0.1-1.2) X10*3/uL Eos # (Auto) (0.0-0.4) X10*3/uL Baso # (Auto) (0.0-0.2) X10*3/uL Abs Immat Gran (auto) (0.00-0.03) X10*3/uL Absolute Neuts (auto) (2.0-8.3) X10*3/uL Absolute Nucleated RBC (0.0-0.012) X10*3/uL Nucleated RBC % (auto) (0.0-0.2) /100WBC Sodium 141 (135-145) mmol/L Potassium 5.0 (3.3-5.1) mmol/L Chloride 109 H (96-108) mmol/L Carbon Dioxide 19 L (22-29) mmol/L Anion Gap 18 (12-20) BUN 59 H (9-16) mg/dL Creatinine 2.87 H (0.5-1.4) mg/dL Estim Creat Clear Calc 17.9 Estimated GFR 16 Random Glucose 183 H (60-115) mg/dL Calcium 8.7 D (8.4-10.2) mg/dL Magnesium 1.9 (1.6-2.6) mg/dL Total Bilirubin 0.4 (0.0-1.0) mg/dL Direct Bilirubin < 0.2 (0.0-0.5) mg/dL AST 14 (5-31) U/L ALT 9 (0-31) U/L Alkaline Phosphatase 86 (39-117) U/L Troponin I High Sens 23.6 H* (<3.5-17.0) ng/L B-Natriuretic Peptide 775 H (<100) pg/mL Total Protein 7.1 (6.5-8.0) g/dL Albumin 3.7 (3.5-5.0) g/dL Urine Color Urine Appearance Urine pH (5.0-8.0) Ur Specific Henriette (1.005-1.025) Urine Protein (NEG-TRACE) MG/DL Urine Glucose (UA) (NEG) MG/DL Urine Ketones (NEG) MG/DL Urine Blood (NEG) Urine Nitrite (NEG) Ur Leukocyte Esterase (NEG) Urine RBC (0) /HPF Urine WBC (0-4) /HPF Ur Squamous Epith Cells /LPF Ur Renal Epithelial Cell /LPF Urine Bacteria /LPF Hyaline Casts /LPF Granular Casts /LPF WBC Casts /LPF Stool Occult Blood NEGATIVE (NEGATIVE) COVID-19 (ROBBIE) (Negative) COVID-19 Clin Com Blood Type Crossmatch 03/03/21 Range/Units 17:15 WBC (4.8-10.8) X10*3/uL RBC (4.20-5.50) X10*6/uL Hgb (12.0-16.0) g/dl Hct (37-47) % MCV (80-98) fL MCH (27.0-33.0) pg MCHC (31.0-35.0) g/dl RDW (11.0-16.0) % Plt Count (160-400) X10*3/uL MPV (9.4-12.3) fL Immature Gran % (Auto) (0.0-0.4) % Neut % (Auto) (45-73) % Lymph % (Auto) (20-40) % [place] % (Auto) (2-11) % Eos % (Auto) (0-4) % Baso % (Auto) (0-2) % Lymph # (Auto) (1.2-4.9) X10*3/uL [place] # (Auto) (0.1-1.2) X10*3/uL Eos # (Auto) (0.0-0.4) X10*3/uL Baso # (Auto) (0.0-0.2) X10*3/uL Abs Immat Gran (auto) (0.00-0.03) X10*3/uL Absolute Neuts (auto) (2.0-8.3) X10*3/uL Absolute Nucleated RBC (0.0-0.012) X10*3/uL Nucleated RBC % (auto) (0.0-0.2) /100WBC Sodium (135-145) mmol/L Potassium (3.3-5.1) mmol/L Chloride (96-108) mmol/L Carbon Dioxide (22-29) mmol/L Anion Gap (12-20) BUN (9-16) mg/dL Creatinine (0.5-1.4) mg/dL Estim Creat Clear Calc Estimated GFR Random Glucose (60-115) mg/dL Calcium (8.4-10.2) mg/dL Magnesium (1.6-2.6) mg/dL Total Bilirubin (0.0-1.0) mg/dL Direct Bilirubin (0.0-0.5) mg/dL AST (5-31) U/L ALT (0-31) U/L Alkaline Phosphatase (39-117) U/L Troponin I High Sens (<3.5-17.0) ng/L B-Natriuretic Peptide (<100) pg/mL Total Protein (6.5-8.0) g/dL Albumin (3.5-5.0) g/dL Urine Color Urine Appearance Urine pH (5.0-8.0) Ur Specific Henriette (1.005-1.025) Urine Protein (NEG-TRACE) MG/DL Urine Glucose (UA) (NEG) MG/DL Urine Ketones (NEG) MG/DL Urine Blood (NEG) Urine Nitrite (NEG) Ur Leukocyte Esterase (NEG) Urine RBC (0) /HPF Urine WBC (0-4) /HPF Ur Squamous Epith Cells /LPF Ur Renal Epithelial Cell /LPF Urine Bacteria /LPF Hyaline Casts /LPF Granular Casts /LPF WBC Casts /LPF Stool Occult Blood (NEGATIVE) COVID-19 (ROBBIE) (Negative) COVID-19 Clin Com Blood Type A Positive Crossmatch See Detail ECG Data Attestation: I personally reviewed and interpreted this ECG as follows: ECG interpretation date: 03/03/21 ECG interpretation time: 14:40 Interpretation: Rate: 82 Rhythm: NSR Ackerly: left Normal P waves. Normal CHENTE. Normal QRS complex. ST T wave : normal no MACY qTC: normal prior studies: no acute ischemia The study has been interpreted contemporaneously by me. . Critical Care Time Critical Care Time Critical Care Time: Yes Total Critical Care Time: 35 Attestation: IV diuresis, O2 intervention for hypoxia, transfusion for RBCs I attest to this time spent taking care of the patient Discharge Plan Discharge Clinical Impression: Hypoxia Congestive heart failure Qualifiers: Heart failure type: systolic Heart failure chronicity: acute on chronic Qualified Code(s): I50.23 - Acute on chronic systolic (congestive) heart failure Anemia Qualifiers: Anemia type: unspecified type Qualified Code(s): D64.9 - Anemia, unspecified Patient Disposition: Admitted As Inpatient
[2021-03-03 14:57] LABS: Glucose Urine UA 100 MG/DL (NEG); Leukocyte Esterase Urine NEG (NEG); Nitrite Urine NEG (NEG); Urine Blood NEG (NEG); Urine Ketones NEG (NEG); Urine Protein 3+ MG/DL (NEG-TRACE)
[2021-03-03 14:58] LABS: Appearance Urine CLEAR; Color Urine YELLOW
[2021-03-03 15:21] LABS: Bacteria Urine TRACE /LPF; RBC Urine 0-2 /HPF (0); Squamous Epithelial Cell Urine 2+ /LPF; WBC Urine 0-2 /HPF (0-4)
[2021-03-03 15:22] LABS: Granular Casts Urine 0-2 /LPF; Hyaline Casts Urine 0-2 /LPF; Renal Epithelial Cells Urine 1+ /LPF
[2021-03-03 15:28] LABS: MANUAL DIFF FLAG NO
[2021-03-03] MEDS: Bumetanide 1 MG/4 ML VIAL IVPUSH ×2 (15:29→20:22)
[2021-03-03 15:35] LABS: Basophils Percent Auto 0.1 % (0-2); Eosinophils Absolute Auto 0.1 X10*3/uL (0.0-0.4); Hematocrit 23.9 % (37-47); Hemoglobin 7.6 g/dl (12.0-16.0); Imm Gran Pct Auto 1.3 % (0.0-0.4); Lymphocytes Absolute Auto 0.8 X10*3/uL (1.2-4.9); Lymphocytes Percent Auto 10.4 % (20-40); Mean Corpuscular HGB Conc 31.8 g/dl (31.0-35.0); Mean Corpuscular Hemoglobin 29.9 pg (27.0-33.0); Mean Corpuscular Volume 94.1 fL (80-98); Monocytes Absolute Auto 0.5 X10*3/uL (0.1-1.2); Monocytes Percent Auto 6.3 % (2-11); Neutrophils Absolute Auto 6.3 X10*3/uL (2.0-8.3); Neutrophils Percent Auto 80.9 % (45-73); Platelet Count 247 X10*3/uL (160-400); Red Blood Count 2.54 X10*6/uL (4.20-5.50); Red Cell Distribution Width 16.5 % (11.0-16.0); White Blood Count 7.8 X10*3/uL (4.8-10.8)
[2021-03-03 15:53] LABS: COVID-19 Test Negative (Negative)
[2021-03-03 15:56] LABS: Alanine Aminotransferase 9 U/L (0-31); Albumin Level 3.7 g/dL (3.5-5.0); Alkaline Phosphatase 86 U/L (39-117); Anion Gap 18 (12-20); Aspartate Amino Transferase 14 U/L (5-31); Bilirubin Direct < 0.2 mg/dL (0.0-0.5); Bilirubin Total 0.4 mg/dL (0.0-1.0); Blood Urea Nitrogen 59 mg/dL (9-16); Calcium 8.7 mg/dL (8.4-10.2); Carbon Dioxide 19 mmol/L (22-29); Chloride 109 mmol/L (96-108); Creatinine Clr Calc Pharmacy 17.9; Estimated Glomerular Filt Rate 16; Glucose Random 183 mg/dL (60-115); Magnesium 1.9 mg/dL (1.6-2.6); Sodium 141 mmol/L (135-145); Total Protein 7.1 g/dL (6.5-8.0)
[2021-03-03 16:04] LABS: B Type Natriuretic Peptide 775 pg/mL (<100); Troponin-I High Sensitivity 23.6 ng/L (<3.5-17.0)
--- NOTE | 2021-03-03 16:46 | PC.NURSE ---
Spoke with patient's daughter Lorna ([phone]). Lorna was able to obtain patient's medication list from home. Updated patient medication list.
[2021-03-03 16:51] LABS: OBS Int Ctl Valid YES; OBS1 NEGATIVE (NEGATIVE)
--- NOTE | 2021-03-03 19:04 | PC.NURSE ---
Bumex to be given post blood transfusion.
[2021-03-03] MEDS: hydrALAZINE HCl 50 MG TABLET 100 MG PO (20:22)
[2021-03-03] MEDS: Pregabalin 25 MG CAPSULE PO (20:22)
[2021-03-03] MEDS: 0.9 % Sodium Chloride Flush 3 ML SYRINGE IVFLUSH (20:22)
[2021-03-03 20:35] LABS: Glucose, Whole Blood 124 mg/dL (60-115)
--- NOTE | 2021-03-03 20:58 | HP_ITS ---
DATE OF SERVICE: 03/03/2021 HISTORY OF PRESENTING ILLNESS: This is an 80-year-old female patient. History obtained via coach operator with past medical history significant for chronic kidney disease, diabetes mellitus, hypertension, chronic diastolic heart failure with recent hospitalization in December of 2020, presented to [facility] due to symptoms of shortness of breath of a few days' duration, associated with worsening lower extremity edema, orthopnea. EMS noted the patient to be hypoxic with finger oximetry of 89%; therefore, placed on 2 L of nasal cannula. Workup in the emergency room revealed a low hematocrit of 23.9, elevated BNP of 775. Chest x-ray showed cardiomegaly and pulmonary vascular congestion without overt edema. The left basilar opacity was similar to the recent study of January 07, 2021, likely due to basilar atelectasis. The patient received 1 dose of IV Bumex in the emergency room and now being admitted for continued monitoring and treatment for acute on chronic anemia. The patient denies hematemesis, no melena. Denies any recent use of NSAIDs. Denies any abdominal pain, heartburn, or acidity. PAST MEDICAL HISTORY: Significant for, 1. Chronic kidney disease. 2. History of diabetes. 3. History of femoral artery stenosis. 4. History of hyperlipidemia. 5. History of hypertension. 6. History of psoriasis of scalp. 7. History of peripheral vascular disease. 8. History of anemia with recent extensive workup, diagnosed to have B12 deficiency anemia, status post upper endoscopy and colonoscopy in December of 2020 that showed mild esophagitis, gastritis, and duodenitis. Pathology showed no significant duodenal abnormality with normal mucosa. Colonoscopy showed tubular polyp, internal hemorrhoids, and diverticular disease. FAMILY HISTORY: Father is , had no medical issues. Mother is , also had no medical issues. SOCIAL HISTORY: The patient is a nonsmoker. Denies history of alcohol abuse. Ambulates with the help of a walker. ALLERGIES: SHE IS ALLERGIC TO IODINATED CONTRAST MEDIA, UNKNOWN ALLERGY. CURRENT MEDICATIONS: Tylenol 650 q.6 hours, amlodipine 10 mg daily, Lipitor 40 mg daily, Bumex 1 mg by mouth daily, vitamin B12 1000 mcg daily, hydralazine 100 mg t.i.d., nitroglycerin transdermally 1 inch as needed, pregabalin 25 mg b.i.d., Januvia 1 tablet by mouth daily, multivitamin with folic acid 1 by mouth daily. 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 CVS: Denies chest pain, shortness of breath as above. GI: Denies nausea, vomiting, diarrhea. : No urinary frequency or urgency. MUSCULOSKELETAL: Denies back pain. Rest of all other systems are reviewed and negative. PHYSICAL EXAMINATION: GENERAL: Resting comfortably, in no acute distress. NECK: Supple. No elevated JVD. LUNGS: Bilateral basilar rales. No rhonchi. Good air movement above. HEART: Regular rate and rhythm. ABDOMEN: Obese, soft, nontender. Bowel sounds are audible. EXTREMITIES: Bilateral pitting edema. NEUROLOGIC: Nonfocal. SKIN: No rash. : Vera catheter in place with clear urine. LABORATORY DATA: Hemoglobin 7.6 with the last hemoglobin on February 05 was 10.6, platelet count of 247. Sodium 141, potassium 5, creatinine of 2.87 with a baseline creatinine around 2.7. Urinalysis unremarkable. Blood sugar 183. Troponin of 23.6. BNP 775, BNP chronically elevated. EKG showed normal sinus rhythm, no significant change from the recent EKG of December 2020. ASSESSMENT AND PLAN: This is an 80-year-old female patient, who presented to [facility] with symptoms of shortness of breath, orthopnea, dyspnea on exertion, noted to have worsening lower extremity edema. Findings suggestive of congestive heart failure and acute on chronic anemia. 1. Acute hypoxic respiratory failure likely due to combination of anemia and acute on chronic heart failure with preserved EF. The patient will be admitted to intermediate care unit. We will transfuse 1 unit of packed RBC, follow hematocrit closely. The patient underwent extensive recent workup that showed mild gastritis. No acute cause of bleeding was found on both upper or lower endoscopies. The patient was noted to have B12 deficiency anemia. Since the diagnosis, B12 has been replaced and recent repeat B12 in January 2021 is within normal range. Likely, the patient has multifactorial anemia due to anemia of chronic disease. We will follow CBC post transfusion. We will discuss with Nephrology regarding use of Procrit. 2. Chronic kidney disease stage 4. The patient's renal function seems to be close to baseline. We will follow BMP closely while being diuresed. 3. History of diabetes mellitus. We will follow blood sugar closely, placed on diabetic diet and insulin sliding scale. 4. History of peripheral vascular disease. The patient has no active issues. Continue to monitor closely. 5. Code status, full code. 6. Deep vein thrombosis prophylaxis. We will place on compression boots due to anemia. MD CHEMA Yu/RAFAELA / [id number]
[2021-03-04] VITALS (10 sets, daily range): BP systolic 150–185; BP diastolic 74–88; PULSE 70–103; RESP 16–28; TEMP 36.2–37.2; O2SAT 92–95
[2021-03-04 07:08] LABS: Hematocrit 27.7 % (37-47); Hemoglobin 8.9 g/dl (12.0-16.0); Mean Corpuscular HGB Conc 32.1 g/dl (31.0-35.0); Mean Corpuscular Volume 93.3 fL (80-98); Mean Platelet Volume 11.5 fL (9.4-12.3); Platelet Count 252 X10*3/uL (160-400); Red Blood Count 2.97 X10*6/uL (4.20-5.50); Red Cell Distribution Width 16.2 % (11.0-16.0); White Blood Count 7.3 X10*3/uL (4.8-10.8)
[2021-03-04 07:14] LABS: Glucose, Whole Blood 106 mg/dL (60-115)
[2021-03-04 07:30] LABS: B Type Natriuretic Peptide 752 pg/mL (<100)
[2021-03-04 07:43] LABS: Anion Gap 17 (12-20); Blood Urea Nitrogen 59 mg/dL (9-16); Calcium 8.9 mg/dL (8.4-10.2); Carbon Dioxide 19 mmol/L (22-29); Chloride 110 mmol/L (96-108); Creatinine Clr Calc Pharmacy 18.7; Estimated Glomerular Filt Rate 17; Glucose Random 105 mg/dL (60-115); Potassium 5.1 mmol/L (3.3-5.1); Sodium 141 mmol/L (135-145)
--- NOTE | 2021-03-04 09:19 | MHC.CM.PN ---
CM met with Patient at bedside with the assist of Bulgarian translation and addressed IMM with Patient, providing her with the original and placing a copy on the chart. CM also spoke with Daughter/HCP/MANUGRAPHER/Emilee @ [phone]. Patient lives with Emilee in an Adult Foster Care setting, where her Daughter is her MANUGRAPHER 17/03. Patient also received VNA services 3X/week, but Emilee cannot remember the name of the agency. Patient was recently dc from [facility] and her goal for dc is to return home and resume home services. [facility] has initiated and will follow for dc planning. Patient has a cane, walker and w/c and her PCP ius Dr. Kay Mata.
[2021-03-04] MEDS: amLODIPine Besylate 10 MG TABLET PO (09:43)
[2021-03-04] MEDS: Bumetanide 1 MG TABLET PO (09:43)
[2021-03-04] MEDS: Pregabalin 25 MG CAPSULE PO ×2 (09:43→20:20)
[2021-03-04] MEDS: Atorvastatin Calcium 40 MG TABLET PO (09:43)
[2021-03-04] MEDS: Cyanocobalamin (Vitamin B-12) 1,000 MCG TABLET 1000 MCG PO (09:43)
[2021-03-04] MEDS: hydrALAZINE HCl 50 MG TABLET 100 MG PO ×3 (09:44→20:20)
[2021-03-04] MEDS: 0.9 % Sodium Chloride Flush 3 ML SYRINGE IVFLUSH ×3 (09:45→23:37)
[2021-03-04] MEDS: Morphine Sulfate 2 MG/ML CARTRIDGE IVPUSH (09:54)
[2021-03-04 11:24] LABS: Glucose, Whole Blood 119 mg/dL (60-115)
--- NOTE | 2021-03-04 14:45 | P.PNIM_ITS ---
Subjective Subjective Date of Service: 03/04/21 Interval History: Feeling little better since admission still complaining of shortness of breath and orthopnea, denies chest pain, Vera catheter removed last night. 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 Neck no JVD. CVS regular rate rhythm, Respiratory bibasilar rales, no respiratory distress Gastrointestinal abdomen soft, nontender, bowel sounds audible, Extremities bilateral pitting edema Neuro nonfocal , speech clear. Skin no rash Psych appropriate affect Objective Data Current Medications Generic Name Dose Route Start Last Admin Trade Name Freeugenie PRN Reason Stop Dose Admin Acetaminophen 650 mg 03/03/21 18:00 Acetaminophen 325 Mg Tablet PO Q6H PRN Pain, Mild (Pain Scale 1-3) Amlodipine Besylate 10 mg 03/04/21 09:00 03/04/21 09:43 Amlodipine Besylate 10 Mg Tablet PO 10 mg DAILY PALOMO Administration Protocol Atorvastatin Calcium 40 mg 03/04/21 09:00 03/04/21 09:43 Atorvastatin Calcium 40 Mg Tablet PO 40 mg DAILY PALOMO Administration Bumetanide 1 mg 03/04/21 08:00 03/04/21 09:43 Bumetanide 1 Mg Tablet PO 1 mg BID@0800,1700 [facility] Administration Protocol Cyanocobalamin 1,000 mcg 03/04/21 09:00 03/04/21 09:43 Cyanocobalamin (Vitamin B-12) 1,000 Mcg Tablet PO 1,000 mcg DAILY PALOMO Administration Hydralazine HCl 100 mg 03/03/21 21:00 03/04/21 09:44 Hydralazine Hcl 50 Mg Tablet PO 100 mg TID PALOMO Administration Protocol Insulin Human Lispro 0 unit 03/03/21 21:00 03/04/21 11:36 Insulin Lispro 100 Unit/Ml 3 Ml Vial SUBCUT Not Given QIDACHS [facility] Protocol Ondansetron HCl 4 mg 03/03/21 18:00 Ondansetron Hcl 4 Mg/2 Ml Vial IVPUSH Q8H PRN Nausea and Vomiting Pregabalin 25 mg 03/03/21 21:00 03/04/21 09:43 Pregabalin 25 Mg Capsule PO 25 mg BID PALOMO Administration Sodium Chloride 3 ml 03/04/21 00:00 03/04/21 09:45 0.9 % Sodium Chloride Flush 3 Ml Syringe IVFLUSH 3 ml QSHIFT PALOMO Administration Labs CBC & Chem 7: 03/04/21 06:00 03/04/21 06:00 Labs: Laboratory Results - last 24 hr 03/03/21 03/03/21 03/03/21 14:50 15:08 15:22 WBC 7.8 RBC 2.54 L D Hgb 7.6 L D Hct 23.9 L D MCV 94.1 MCH 29.9 MCHC 31.8 RDW 16.5 H Plt Count 247 MPV 11.0 Immature Gran % (Auto) 1.3 H Neut % (Auto) 80.9 H Lymph % (Auto) 10.4 L [place] % (Auto) 6.3 Eos % (Auto) 1.0 Baso % (Auto) 0.1 Lymph # (Auto) 0.8 L [place] # (Auto) 0.5 Eos # (Auto) 0.1 Baso # (Auto) 0.0 Abs Immat Gran (auto) 0.10 H Absolute Neuts (auto) 6.3 Absolute Nucleated RBC 0.000 Nucleated RBC % (auto) 0.0 Sodium Potassium Chloride Carbon Dioxide Anion Gap BUN Creatinine Estim Creat Clear Calc Estimated GFR POC Glucose Random Glucose Calcium Magnesium Total Bilirubin Direct Bilirubin AST ALT Alkaline Phosphatase Troponin I High Sens B-Natriuretic Peptide Total Protein Albumin Urine Color YELLOW Urine Appearance CLEAR Urine pH 6.0 Ur Specific [place] 1.020 Urine Protein 3+ H Urine Glucose (UA) 100 H Urine Ketones NEG Urine Blood NEG Urine Nitrite NEG Ur Leukocyte Esterase NEG Urine RBC 0-2 Urine WBC 0-2 Ur Squamous Epith Cells 2+ Ur Renal Epithelial Cell 1+ Urine Bacteria TRACE Hyaline Casts 0-2 Granular Casts 0-2 WBC Casts NONE Stool Occult Blood COVID-19 (ROBBIE) Negative COVID-19 Clin Com See Note Blood Type Antibody Screen Crossmatch 03/03/21 03/03/21 03/03/21 15:22 15:22 16:45 WBC RBC Hgb Hct MCV MCH MCHC RDW Plt Count MPV Immature Gran % (Auto) Neut % (Auto) Lymph % (Auto) [place] % (Auto) Eos % (Auto) Baso % (Auto) Lymph # (Auto) [place] # (Auto) Eos # (Auto) Baso # (Auto) Abs Immat Gran (auto) Absolute Neuts (auto) Absolute Nucleated RBC Nucleated RBC % (auto) Sodium 141 Potassium 5.0 Chloride 109 H Carbon Dioxide 19 L Anion Gap 18 BUN 59 H Creatinine 2.87 H Estim Creat Clear Calc 17.9 Estimated GFR 16 POC Glucose Random Glucose 183 H Calcium 8.7 D Magnesium 1.9 Total Bilirubin 0.4 Direct Bilirubin < 0.2 AST 14 ALT 9 Alkaline Phosphatase 86 Troponin I High Sens 23.6 H* B-Natriuretic Peptide 775 H Total Protein 7.1 Albumin 3.7 Urine Color Urine Appearance Urine pH Ur Specific [place] Urine Protein Urine Glucose (UA) Urine Ketones Urine Blood Urine Nitrite Ur Leukocyte Esterase Urine RBC Urine WBC Ur Squamous Epith Cells Ur Renal Epithelial Cell Urine Bacteria Hyaline Casts Granular Casts WBC Casts Stool Occult Blood NEGATIVE COVID-19 (ROBBIE) COVID-19 Clin Com Blood Type Antibody Screen Crossmatch 03/03/21 03/03/21 03/04/21 17:15 20:14 06:00 WBC 7.3 RBC 2.97 L Hgb 8.9 L Hct 27.7 L MCV 93.3 MCH 30.0 MCHC 32.1 RDW 16.2 H Plt Count 252 MPV 11.5 Immature Gran % (Auto) Neut % (Auto) Lymph % (Auto) [place] % (Auto) Eos % (Auto) Baso % (Auto) Lymph # (Auto) [place] # (Auto) Eos # (Auto) Baso # (Auto) Abs Immat Gran (auto) Absolute Neuts (auto) Absolute Nucleated RBC 0.000 Nucleated RBC % (auto) 0.0 Sodium Potassium Chloride Carbon Dioxide Anion Gap BUN Creatinine Estim Creat Clear Calc Estimated GFR POC Glucose 124 H Random Glucose Calcium Magnesium Total Bilirubin Direct Bilirubin AST ALT Alkaline Phosphatase Troponin I High Sens B-Natriuretic Peptide Total Protein Albumin Urine Color Urine Appearance Urine pH Ur Specific [place] Urine Protein Urine Glucose (UA) Urine Ketones Urine Blood Urine Nitrite Ur Leukocyte Esterase Urine RBC Urine WBC Ur Squamous Epith Cells Ur Renal Epithelial Cell Urine Bacteria Hyaline Casts Granular Casts WBC Casts Stool Occult Blood COVID-19 (ROBBIE) COVID-19 Clin Com Blood Type A Positive Antibody Screen NEGATIVE Crossmatch See Detail 03/04/21 03/04/21 03/04/21 06:00 06:00 06:59 WBC RBC Hgb Hct MCV MCH MCHC RDW Plt Count MPV Immature Gran % (Auto) Neut % (Auto) Lymph % (Auto) [place] % (Auto) Eos % (Auto) Baso % (Auto) Lymph # (Auto) [place] # (Auto) Eos # (Auto) Baso # (Auto) Abs Immat Gran (auto) Absolute Neuts (auto) Absolute Nucleated RBC Nucleated RBC % (auto) Sodium 141 Potassium 5.1 Chloride 110 H Carbon Dioxide 19 L Anion Gap 17 BUN 59 H Creatinine 2.75 H Estim Creat Clear Calc 18.7 Estimated GFR 17 POC Glucose 106 Random Glucose 105 D Calcium 8.9 Magnesium Total Bilirubin Direct Bilirubin AST ALT Alkaline Phosphatase Troponin I High Sens B-Natriuretic Peptide 752 H Total Protein Albumin Urine Color Urine Appearance Urine pH Ur Specific [place] Urine Protein Urine Glucose (UA) Urine Ketones Urine Blood Urine Nitrite Ur Leukocyte Esterase Urine RBC Urine WBC Ur Squamous Epith Cells Ur Renal Epithelial Cell Urine Bacteria Hyaline Casts Granular Casts WBC Casts Stool Occult Blood COVID-19 (ROBBIE) COVID-19 Recoup Com Blood Type Antibody Screen Crossmatch 03/04/21 11:11 WBC RBC Hgb Hct MCV MCH MCHC RDW Plt Count MPV Immature Gran % (Auto) Neut % (Auto) Lymph % (Auto) [place] % (Auto) Eos % (Auto) Baso % (Auto) Lymph # (Auto) [place] # (Auto) Eos # (Auto) Baso # (Auto) Abs Immat Gran (auto) Absolute Neuts (auto) Absolute Nucleated RBC Nucleated RBC % (auto) Sodium Potassium Chloride Carbon Dioxide Anion Gap BUN Creatinine Estim Creat Clear Calc Estimated GFR POC Glucose 119 H Random Glucose Calcium Magnesium Total Bilirubin Direct Bilirubin AST ALT Alkaline Phosphatase Troponin I High Sens B-Natriuretic Peptide Total Protein Albumin Urine Color Urine Appearance Urine pH Ur Specific [place] Urine Protein Urine Glucose (UA) Urine Ketones Urine Blood Urine Nitrite Ur Leukocyte Esterase Urine RBC Urine WBC Ur Squamous Epith Cells Ur Renal Epithelial Cell Urine Bacteria Hyaline Casts Granular Casts WBC Casts Stool Occult Blood COVID-19 (ROBBIE) COVID-19 Clin Com Blood Type Antibody Screen Crossmatch Quality Stroke Does the patient have a stroke diagnosis?: No VTE Prior VTE?: No VTE Risk Level:: Medical - moderate - high VTE Device Contraindication: N/A - Device Ordered VTE Drug Contraindication: Treatment Not Indicated Assessment and Plan (1) Acute respiratory failure with hypoxia: Status: Acute (2) Acute on chronic diastolic heart failure: Status: Acute (3) Anemia: Status: Acute (4) B12 deficiency: Status: Acute (5) Chronic renal insufficiency: Status: Acute Assessment and Plan: 80-year-old female admitted with worsening shortness of breath, dyspnea on exertion orthopnea diagnosed to have hypoxia, anemia and acute on chronic heart failure with preserved EF Acute on chronic heart failure with preserved EF Patient did not respond in last 24 hours with IV Bumex twice daily therefore will be placed on IV Lasix infusion will monitor I's and O's, BMP, BNP and magnesium Patient was recently admitted in December 2020 with similar presentation, was supposed to be on Bumex 2 mg daily but per as per patient her Bumex dose was reduced to 1 mg Recent echo in December showed EF 50-55% normal left ventricular size and systolic function therefore will hold off on repeat echo Will consult Cardiology if patient shows no improvement. Acute hypoxic respiratory failure due to anemia and CHF patient is not on home oxygen will gradually wean O2 Acute on chronic anemia Recently diagnosed to have B12 deficiency is on B12 replacement repeat B12 level in January 2021 is within normal range Likely multifactorial anemia due to chronic disease, B12 deficiency and mild gastritis status post recent upper and lower endoscopy. Stool guaiac negative Received 1 unit of packed RBC hematocrit improved, follow CBC and transfuse as needed Hypertension uncontrolled blood pressure on amlodipine 10 mg and hydralazine 100 mg by mouth t.i.d. likely due to CHF, add Lasix drip and follow blood pressure c losely Chronic kidney disease stage 4 creatinine remains stable follow BMP closely while being diuresed Diabetes mellitus blood sugars stable on insulin sliding scale resume Januvia upon discharge. Peripheral vascular disease continue statin Code status full code DVT prophylaxis on compression boots due to anemia
[2021-03-04] MEDS: Furosemide 200 MG in 0.9 % Sodium Chloride 80 ML IVCONT (16:03)
[2021-03-04 16:15] LABS: Glucose, Whole Blood 150 mg/dL (60-115)
[2021-03-04] MEDS: Acetaminophen 325 MG TABLET 650 MG PO (20:21)
[2021-03-04 20:36] LABS: Glucose, Whole Blood 138 mg/dL (60-115)
[2021-03-05] VITALS (12 sets, daily range): BP systolic 134–186; BP diastolic 58–83; PULSE 70–118; RESP 16–32; TEMP 36.2–38.1; O2SAT 90–98
[2021-03-05 05:00] LABS: Hematocrit 27.6 % (37-47); Hemoglobin 8.8 g/dl (12.0-16.0); Mean Corpuscular HGB Conc 31.9 g/dl (31.0-35.0); Mean Corpuscular Hemoglobin 29.6 pg (27.0-33.0); Mean Corpuscular Volume 92.9 fL (80-98); Mean Platelet Volume 10.9 fL (9.4-12.3); Platelet Count 241 X10*3/uL (160-400); Red Blood Count 2.97 X10*6/uL (4.20-5.50); White Blood Count 7.7 X10*3/uL (4.8-10.8)
[2021-03-05 05:23] LABS: Anion Gap 15 (12-20); Blood Urea Nitrogen 61 mg/dL (9-16); Calcium 8.8 mg/dL (8.4-10.2); Carbon Dioxide 21 mmol/L (22-29); Chloride 110 mmol/L (96-108); Creatinine Clr Calc Pharmacy 18.7; Estimated Glomerular Filt Rate 17; Glucose Random 108 mg/dL (60-115); Potassium 5.2 mmol/L (3.3-5.1); Sodium 141 mmol/L (135-145)
[2021-03-05 05:25] LABS: B Type Natriuretic Peptide 707 pg/mL (<100)
[2021-03-05 07:19] LABS: Glucose, Whole Blood 93 mg/dL (60-115)
[2021-03-05] MEDS: hydrALAZINE HCl 50 MG TABLET 100 MG PO ×3 (08:09→20:39)
[2021-03-05] MEDS: Atorvastatin Calcium 40 MG TABLET PO (08:10)
[2021-03-05] MEDS: Cyanocobalamin (Vitamin B-12) 1,000 MCG TABLET 1000 MCG PO (08:10)
[2021-03-05] MEDS: Pregabalin 25 MG CAPSULE PO (08:10)
[2021-03-05] MEDS: amLODIPine Besylate 10 MG TABLET PO (08:10)
[2021-03-05 11:09] LABS: Glucose, Whole Blood 161 mg/dL (60-115)
[2021-03-05] MEDS: Insulin Lispro 100 UNIT/ML 3 ML VIAL SUBCUT ×3 (12:20→21:44)
--- NOTE | 2021-03-05 16:13 | P.PNIM_ITS ---
Subjective Subjective Date of Service: 03/05/21 Interval History: History taken in [place] from the pt Swelling + breathing improved No chest pain Physical Exam Vital Signs: Vital Signs: Last Vital Signs Temp 98.3 F 03/05/21 15:28 Pulse 92 03/05/21 15:28 Resp 16 03/05/21 15:28 BP 164/75 H 03/05/21 15:28 Pulse Ox 93 03/05/21 15:28 Oxygen Flow Rate 2 03/03/21 14:05 Body Mass Index 35.2 Gen: in no acute distress HEENT: sclera anicteric, moist mucus membranes Neck: supple Lungs: diminished bilaterally Heart: regular rate and rhythm, no murmurs Abd: soft, non-tender, non-distended Ext: 2+ pitting edema bilateral legs Skin: warm/well-perfused Neuro: alert and oriented x3, no focal findings Psych: appropriate affect Objective Data Current Medications Generic Name Dose Route Start Last Admin Trade Name Freq PRN Reason Stop Dose Admin Acetaminophen 650 mg 03/03/21 18:00 03/04/21 20:21 Acetaminophen 325 Mg Tablet PO 650 mg Q6H PRN Administration Pain, Mild (Pain Scale 1-3) Amlodipine Besylate 10 mg 03/04/21 09:00 03/05/21 08:10 Amlodipine Besylate 10 Mg Tablet PO 10 mg DAILY PALOMO Administration Protocol Atorvastatin Calcium 40 mg 03/04/21 09:00 03/05/21 08:10 Atorvastatin Calcium 40 Mg Tablet PO 40 mg DAILY PALOMO Administration Cyanocobalamin 1,000 mcg 03/04/21 09:00 03/05/21 08:10 Cyanocobalamin (Vitamin B-12) 1,000 Mcg Tablet PO 1,000 mcg DAILY PALOMO Administration Hydralazine HCl 100 mg 03/03/21 21:00 03/05/21 14:09 Hydralazine Hcl 50 Mg Tablet PO 100 mg TID PALOMO Administration Protocol Furosemide 200 mg/ Sodium 100 mls @ 2.5 mls/hr 03/04/21 16:00 03/04/21 16:03 Chloride IVCONT 5 mg/hr .Q24H PALOMO 2.5 mls/hr Administration 5 MG/HR Insulin Human Lispro 0 unit 03/03/21 21:00 03/05/21 12:20 Insulin Lispro 100 Unit/Ml 3 Ml Vial SUBCUT 2 unit QIDACHS PALOMO Administration Protocol Ondansetron HCl 4 mg 03/03/21 18:00 Ondansetron Hcl 4 Mg/2 Ml Vial IVPUSH Q8H PRN Nausea and Vomiting Pregabalin 25 mg 03/03/21 21:00 03/05/21 08:10 Pregabalin 25 Mg Capsule PO 25 mg BID PALOMO Administration Sodium Chloride 3 ml 03/04/21 00:00 03/05/21 08:16 0.9 % Sodium Chloride Flush 3 Ml Syringe IVFLUSH Not Given QSHIFT [facility] Labs CBC & Chem 7: 03/05/21 04:39 03/05/21 04:39 Labs: Laboratory Results - last 24 hr 03/04/21 03/04/21 03/05/21 16:08 20:31 04:39 WBC 7.7 RBC 2.97 L Hgb 8.8 L Hct 27.6 L MCV 92.9 MCH 29.6 MCHC 31.9 RDW 16.0 Plt Count 241 MPV 10.9 Absolute Nucleated RBC 0.000 Nucleated RBC % (auto) 0.0 Sodium Potassium Chloride Carbon Dioxide Anion Gap BUN Creatinine Estim Creat Clear Calc Estimated GFR POC Glucose 150 H 138 H Random Glucose Calcium B-Natriuretic Peptide 03/05/21 03/05/21 03/05/21 04:39 04:39 07:10 WBC RBC Hgb Hct MCV MCH MCHC RDW Plt Count MPV Absolute Nucleated RBC Nucleated RBC % (auto) Sodium 141 Potassium 5.2 H Chloride 110 H Carbon Dioxide 21 L Anion Gap 15 BUN 61 H Creatinine 2.74 H Estim Creat Clear Calc 18.7 Estimated GFR 17 POC Glucose 93 Random Glucose 108 Calcium 8.8 B-Natriuretic Peptide 707 H 03/05/21 11:02 WBC RBC Hgb Hct MCV MCH MCHC RDW Plt Count MPV Absolute Nucleated RBC Nucleated RBC % (auto) Sodium Potassium Chloride Carbon Dioxide Anion Gap BUN Creatinine Estim Creat Clear Calc Estimated GFR POC Glucose 161 H Random Glucose Calcium B-Natriuretic Peptide Quality Stroke Does the patient have a stroke diagnosis?: No VTE Prior VTE?: No VTE Risk Level:: Medical - moderate - high VTE Device Contraindication: N/A - Device Ordered VTE Drug Contraindication: Treatment Not Indicated Assessment and Plan (1) Acute respiratory failure with hypoxia: Status: Acute (2) Acute on chronic diastolic heart failure: Status: Acute (3) Anemia: Status: Acute (4) B12 deficiency: Status: Acute (5) Chronic renal insufficiency: Status: Acute Assessment and Plan: hospital d#3 80yo F with HFpEF presented with worsening STEWART + edema admitted for acute hypoxia from CHF exacerbation # acute/chronic HFpEF - IV furosemide gtt, -2.3L so far, monitor weight/I+O/BMP/BNP/Mg - TTE 01/09/21 showed low normal LV systolic function with mild LVH with impaired relaxation filling pattern and elevated filling pressures 80-year-old female admitted with worsening shortness of breath, dyspnea on exertion orthopnea diagnosed to have hypoxia, anemia and acute on chronic heart failure with preserved EF - per pt outpt bumetanide dose was reduced from 2 mg to 1 mg daily # acute hypoxic RF - wean O2 as tolerated # acute/chronic anemia - likely multifactorial due to CKD, B12 deficiency [repleted], gastritis s/p recent EGD + C-scope. FOBT negative. responded appropriately to 1u PRBCs transfused # HTN - continue amlodipine + hydralazine, may need additional agent if not fully co ntrolled # CKD4 - SCr stable at baseline, monitor carefully while in furosemide gtt # DM2 - correction-dose lipsro # DM neuropathy - pregabalin # PVD - continue statin # VTE ppx - SCDs, no heparin due to anemia
[2021-03-05 16:20] LABS: Glucose, Whole Blood 163 mg/dL (60-115)
[2021-03-05] MEDS: Sodium Polystyrene Sulfon/Sorb 15 GM/60 ML ORAL.SUSP PO (16:39)
[2021-03-05] MEDS: Furosemide 200 MG in 0.9 % Sodium Chloride 80 ML IVCONT (17:12)
[2021-03-05] MEDS: Acetaminophen 325 MG TABLET 650 MG PO (20:12)
--- NOTE | 2021-03-05 20:13 | ECG_ITS ---
Test Reason : SOB Blood Pressure : / mmHG Vent. Rate : 081 BPM Atrial Rate : 081 BPM P-R Int : 144 ms QRS Dur : 098 ms QT Int : 406 ms P-R-T Axes : 027 -14 047 degrees QTc Int : 471 ms Normal sinus rhythm Nonspecific T wave abnormality Prolonged QT Abnormal ECG When compared with ECG of 03-MAR-2021 14:17, Nonspecific T wave abnormality now evident in Anterior leads Referred By: Cheyenne Cano Electronically Signed By:Toney Long
[2021-03-05] MEDS: Labetalol HCL 100 MG/20 ML VIAL 10 MG IVPUSH (20:15)
[2021-03-05] MEDS: Furosemide 40 MG/4 ML VIAL IVPUSH (20:17)
[2021-03-05 20:27] LABS: Glucose, Whole Blood 179 mg/dL (60-115)
[2021-03-05 21:19] LABS: Basophils Percent Auto 0.2 % (0-2); Eosinophils Absolute Auto 0.1 X10*3/uL (0.0-0.4); Eosinophils Percent Auto 0.5 % (0-4); Hematocrit 28.4 % (37-47); Imm Gran Abs Auto 0.09 X10*3/uL (0.00-0.03); Imm Gran Pct Auto 0.8 % (0.0-0.4); Lymphocytes Absolute Auto 0.3 X10*3/uL (1.2-4.9); Lymphocytes Percent Auto 2.5 % (20-40); MANUAL DIFF FLAG SCAN; Mean Corpuscular HGB Conc 31.7 g/dl (31.0-35.0); Mean Corpuscular Hemoglobin 29.6 pg (27.0-33.0); Mean Corpuscular Volume 93.4 fL (80-98); Mean Platelet Volume 11.3 fL (9.4-12.3); Monocytes Absolute Auto 0.6 X10*3/uL (0.1-1.2); Monocytes Percent Auto 5.4 % (2-11); Neutrophils Percent Auto 90.6 % (45-73); Platelet Count 262 X10*3/uL (160-400); Red Blood Count 3.04 X10*6/uL (4.20-5.50); Red Cell Distribution Width 16.2 % (11.0-16.0); SCAN SMEAR FLAG 1
[2021-03-05] MEDS: Morphine Sulfate 4 MG/ML CARTRIDGE IVPUSH (21:29)
[2021-03-05 21:37] LABS: SLIDE REVIEW VERIFIED
[2021-03-05 21:46] LABS: Lactic Acid 0.7 mmol/L (0.5-2.0)
[2021-03-05 21:47] LABS: B Type Natriuretic Peptide 511 pg/mL (<100); Troponin-I High Sensitivity 16.7 ng/L (<3.5-17.0)
[2021-03-05 21:48] LABS: Anion Gap 19 (12-20); Blood Urea Nitrogen 59 mg/dL (9-16); Calcium 8.6 mg/dL (8.4-10.2); Carbon Dioxide 18 mmol/L (22-29); Chloride 104 mmol/L (96-108); Creatinine Clr Calc Pharmacy 19.1; Estimated Glomerular Filt Rate 17; Glucose Random 186 mg/dL (60-115); Potassium 4.6 mmol/L (3.3-5.1); Sodium 136 mmol/L (135-145)
[2021-03-05 22:25] LABS: Glucose Urine UA NEG (NEG); Leukocyte Esterase Urine NEG (NEG); Nitrite Urine NEG (NEG); PH 5.5 (5.0-8.0); Urine Blood TRACE (NEG); Urine Ketones NEG (NEG); Urine Protein 2+ MG/DL (NEG-TRACE)
[2021-03-05 22:41] LABS: Appearance Urine CLEAR; Color Urine STRAW
[2021-03-05 22:59] LABS: Mucus Urine 2+ /LPF; Renal Epithelial Cells Urine 1+ /LPF; Squamous Epithelial Cell Urine TRACE /LPF; UACC CULT YES
[2021-03-05 23:00] LABS: Amorphous Sediment Urine 1+ /LPF; Waxy Casts Urine 0-2 /LPF; White Blood Cell Casts Urine 0-2 /LPF
--- NOTE | 2021-03-05 23:41 | PM.EVENT ---
Event Note Date of Service: 03/05/21 Event Note: a rapid response was called on pt for increased owrk of breathing and complaints for trouble breathing. on arrival, pt sating 85% on 3L of O2, increased to 5L of O2, with improvement of O2 to 94%. chest auscultation, revealed rales bilaterally. Pt also complained of midsternal chest pain that was reproducible on palpation. EKG normal, labs showed improvement of BNP. CXR stable. Pt also had fever of 100.7, and BP of 180s/80s with headache and HR of 118. pt given 10 mg of labetalol, received 4 of morphine for increased WOB, 40 of lasix ( on lasix drip), with improvement of her clincal status
[2021-03-06] VITALS (12 sets, daily range): BP systolic 151–193; BP diastolic 62–71; PULSE 79–101; RESP 18–20; TEMP 36.8–38.5; O2SAT 95–97; BMI 33.7
--- NOTE | 2021-03-06 03:48 | MHC.PIE ---
p - pt at 1954 on nsg assessment tachypnic rr32, tachycardic 118 stach, bp 184/82. fine crackles t.o. c/o h/a bp 184/82 90% on 2L i - call placed to Dr. Mcgarry who was on unit & came to room immediately. given tylenol 650mg po & hydralazine 100mg po & also requested seismic interpreter for swazi speaking only & present o2 titrated to 5L n/c. rapid response called 2014 with prompt arrival of team, including Rosetta Stiles nsg supv, Mindy PRODUCTION TECH, R.T. present, Ulises Farrell RN Clinical coordinator. c/o midsternal chest pain reproducible with palpation 12 lead ekg done as ordered stach - reviewed by dr. mcgarry labetalol 10mg iv given as ordered, 2016, morphine 4mg iv given 2017, lasix 40mg iv given 2018. f/c emptied for 950 ml with an additional 200ml @ 2245. bp improved to to 160/72 99.1 temp rr28 95% 5L n/c by end of PROFESSOR OF COMMUNICATION AND WRITING at 2024. stat pcxr done & labs drawn as ordered including bcx2, lactate, cbc, c7 bmp & trop. u/a obtained from f/c. at end of rapier insertion loom fixer, pt with eyes closed resting & reports improvement in breathing e - will continue to monitor.
[2021-03-06 06:24] LABS: Anion Gap 21 (12-20); Blood Urea Nitrogen 62 mg/dL (9-16); Calcium 8.3 mg/dL (8.4-10.2); Carbon Dioxide 17 mmol/L (22-29); Chloride 105 mmol/L (96-108); Creatinine Clr Calc Pharmacy 18.8; Estimated Glomerular Filt Rate 17; Glucose Random 84 mg/dL (60-115); Magnesium 1.6 mg/dL (1.6-2.6); Potassium 4.6 mmol/L (3.3-5.1); Sodium 138 mmol/L (135-145)
[2021-03-06 06:44] LABS: B Type Natriuretic Peptide 723 pg/mL (<100)
[2021-03-06 07:09] LABS: Glucose, Whole Blood 108 mg/dL (60-115)
[2021-03-06] MEDS: hydrALAZINE HCl 50 MG TABLET 100 MG PO ×3 (08:31→20:20)
[2021-03-06] MEDS: Cyanocobalamin (Vitamin B-12) 1,000 MCG TABLET 1000 MCG PO (08:32)
[2021-03-06] MEDS: Atorvastatin Calcium 40 MG TABLET PO (08:32)
[2021-03-06] MEDS: amLODIPine Besylate 10 MG TABLET PO (08:32)
[2021-03-06] MEDS: Pregabalin 25 MG CAPSULE PO ×2 (08:32→20:20)
[2021-03-06] MEDS: 0.9 % Sodium Chloride Flush 3 ML SYRINGE IVFLUSH ×2 (08:32→16:14)
[2021-03-06 10:08] LABS: Procalcitonin 0.55 ng/mL
[2021-03-06 11:01] LABS: Glucose, Whole Blood 163 mg/dL (60-115)
[2021-03-06] MEDS: Insulin Lispro 100 UNIT/ML 3 ML VIAL SUBCUT (11:45)
[2021-03-06] MEDS: Acetaminophen 325 MG TABLET 650 MG PO ×2 (11:46→20:20)
--- NOTE | 2021-03-06 12:04 | PHA.PROG ---
Admission Date/Time: March 03, 2021 18:01 Indication: BACTEREMIA Weight in k kg Adjusted body weight in Kg: [place] body weight in Kg: Obesity Dosing Indication % IBW: Serum Creatinine - Last 168 Hours 03/03/21 03/04/21 03/05/21 15:22 06:00 04:39 Creatinine 2.87 H 2.75 H 2.74 H 03/05/21 03/06/21 20:52 05:16 Creatinine 2.69 H 2.67 H Estimated CrCl and GFR - Last 168 Hours 03/03/21 03/04/21 03/05/21 15:22 06:00 04:39 Estim Creat Clear Calc 17.9 18.7 18.7 Estimated GFR 16 17 17 03/05/21 03/06/21 20:52 05:16 Estim Creat Clear Calc 19.1 18.8 Estimated GFR 17 17 Vancomycin Loading Dose: Current Vancomycin Dosing Regimen:1250 MG Q 48 HOURS Vancomycin Monitoring using AUC goal of 400 - 600 range with trough as surrogate marker: Date and Time for next Vancomycin Level to be drawn:WILL CHECK LEVEL 03/07/21 Pharmacist Comments on Vancomycin Plan: Vancomycin dosing will take advantage of [employer] as a clinical decision support tool that uses Bayesian modeling to calculate individual patient's pharmacokinetic parameters and forecast the patient's drug concentration time course with the target goal AUC 24 range of 400 - 600 mg/L/hr.
[2021-03-06] MEDS: vancomycin HCL 1,250 MG in 0.9 % Sodium Chloride 250 ML 166.67 MG IV (14:58)
--- NOTE | 2021-03-06 15:08 | P.CNID_ITS ---
History of Present Illness Data of Consult Service Date: 03/06/21 Requesting physician: Cheyenne Cano Primary Care Provider: Kay Mata MD HPI Reason for consult: bacteremia She presents with shortness of breath She has also chronic kidney disease and some swelling lower extremities. She has diabetes She was doing well with treatment and developed fever Blood cultures were drawn,gram positive cocci x 2. Review of Systems Review of Systems: Yes all other systems are reviewed and are negative Musculoskeletal: Comments: right antecubital pain PMFSH Past Medical History Medical History (Updated 03/06/21 @ 15:13 by Caroline Carrion MD) CKD (chronic kidney disease) Diabetes Femoral artery stenosis Gram-positive bacteremia High cholesterol Hypertension Lower extremity edema Psoriasis of scalp PVD (peripheral vascular disease) Family History Family History Father No problems noted. Mother No problems noted. Family history: reviewed and not pertinent Surgical History Surgical History History of female sterilization History of shoulder surgery Social History Social History Household Members: Family Household Members Other:: Daughter Housing: House Do you presently have visiting nurse or other home services: Yes Alcohol intake: never Patient Tobacco Use Status: Never used Tobacco Use of substances other than those prescribed or required for medical reasons: No Currently Displaying Signs/Symptoms of Drug Intoxication Withdrawal: No Have you been hit, kicked, punched, or otherwise hurt by someone within the past year? If so, by whom?: No Do you feel safe in your current relationship?: No Current Relationship Is there a partner from a previous relationship who is making you feel unsafe now?: No Are you made to feel afraid or neglected: No Advance Directives: No Advance Directives Information Provided: No Advance Directives Date on File: 01/08/21 Do you have thoughts of harming others: None Do you have a plan to hurt others: No Plan Recently lost weight without trying: No Eating poorly because of decreased appetite: No Nutrition Risks: No Nutritional Risk Patient : No : No Poor oral hygiene: No service: No Current occupational status: retired and disabled Meds Allergies Allergy/AdvReac Type Severity Reaction Status Date / Time Iodinated Contrast Media Allergy Unknown UNKNOWN Verified 12/26/20 13:27 [IODINATED CONTRAST MEDIA] Active Medications: Current Medications Generic Name Dose Route Start Last Admin Trade Name Blayne PRN Reason Stop Dose Admin Acetaminophen 650 mg 03/03/21 18:00 03/06/21 11:46 Acetaminophen 325 Mg Tablet PO 650 mg Q6H PRN Administration Pain, Mild (Pain Scale 1-3) Amlodipine Besylate 10 mg 03/04/21 09:00 03/06/21 08:32 Amlodipine Besylate 10 Mg Tablet PO 10 mg DAILY PALOMO Administration Protocol Atorvastatin Calcium 40 mg 03/04/21 09:00 03/06/21 08:32 Atorvastatin Calcium 40 Mg Tablet PO 40 mg DAILY PALOMO Administration Cyanocobalamin 1,000 mcg 03/04/21 09:00 03/06/21 08:32 Cyanocobalamin (Vitamin B-12) 1,000 Mcg Tablet PO 1,000 mcg DAILY PALOMO Administration Hydralazine HCl 100 mg 03/03/21 21:00 03/06/21 08:31 Hydralazine Hcl 50 Mg Tablet PO 100 mg TID PALOMO Administration Protocol Furosemide 200 mg/ Sodium 100 mls @ 2.5 mls/hr 03/04/21 16:00 03/05/21 17:12 Chloride IVCONT 5 mg/hr .Q24H PALOMO 2.5 mls/hr Administration 5 MG/HR Vancomycin HCl 1,250 mg/ 250 mls @ 166.667 mls/hr 03/06/21 13:00 03/06/21 14:58 Sodium Chloride IV 166.67 mls/hr Q48H PALOMO Administration Insulin Human Lispro 0 unit 03/03/21 21:00 03/06/21 11:45 Insulin Lispro 100 Unit/Ml 3 Ml Vial SUBCUT 2 unit QIDACHS PALOMO Administration Protocol Ondansetron HCl 4 mg 03/03/21 18:00 Ondansetron Hcl 4 Mg/2 Ml Vial IVPUSH Q8H PRN Nausea and Vomiting Pharmacy Consult 1 each 03/06/21 11:44 Consult Rx Vancomycin Dosing MISCELLANE DAILY PRN Consult order Pregabalin 25 mg 03/03/21 21:00 03/06/21 08:32 Pregabalin 25 Mg Capsule PO 25 mg BID PALOMO Administration Sodium Chloride 3 ml 03/04/21 00:00 03/06/21 08:32 0.9 % Sodium Chloride Flush 3 Ml Syringe IVFLUSH 3 ml QSHIFT [facility] Administration Home Medications Medication Instructions Recorded Confirmed Last Taken Type amlodipine 10 mg PO DAILY 01/07/21 03/03/21 Unknown History atorvastatin 40 mg PO DAILY 01/07/21 03/03/21 Unknown History multivitamin with folic acid 400 1 tab PO DAILY 03/02/21 03/03/21 Unknown History mcg tablet bumetanide 1 mg PO DAILY 03/03/21 03/03/21 Unknown History sitagliptin [Januvia] 1 tab PO DAILY 03/03/21 03/03/21 Unknown History Physical Exam Vital Signs: Vital Signs: Last Vital Signs Temp 99.4 F 03/06/21 14:25 Pulse 94 03/06/21 11:38 Resp 18 03/06/21 11:18 BP 153/62 H 03/06/21 11:38 Pulse Ox 96 03/06/21 11:38 Oxygen Flow Rate 5 03/05/21 20:30 Body Mass Index 33.7 Const: General: cooperative Orientation/consciousness: patient oriented x3 HENMT: Head: Yes normal to inspection and Yes other (left eye haziness) Mouth: Normal oral and palatal mucosa present Resp: Effort & Inspection: normal respiratory effort Cardio: Rate: regular rate Rhythm: regular rhythm GI: Palpation (GI): Soft to palpation and nontender Skin: General skin exam: no rashes or lesions noted Neuro: General: patient oriented x3 Extrem: Other: right arm swelling antecubital and pain,redness Results Labs CBC & Chem 7: 03/05/21 20:52 03/06/21 05:16 Labs: Short CBC 03/05/21 Range/Units 20:52 WBC 11.0 H (4.8-10.8) X10*3/uL Hgb 9.0 L (12.0-16.0) g/dl Hct 28.4 L (37-47) % Plt Count 262 (160-400) X10*3/uL BMP 03/05/21 03/06/21 20:52 05:16 Sodium 136 138 Potassium 4.6 4.6 Chloride 104 105 Carbon Dioxide 18 L 17 L BUN 59 H 62 H Creatinine 2.69 H 2.67 H Calcium 8.6 8.3 L Urine 03/05/21 Range/Units 22:20 Urine Color STRAW Urine Appearance CLEAR Urine pH 5.5 (5.0-8.0) Ur Specific [place] 1.020 (1.005-1.025) Urine Protein 2+ H (NEG-TRACE) MG/DL Urine Glucose (UA) NEG (NEG) MG/DL Microbiology Microbiology Results: Microbiology 03/05/21 20:52 Blood - Venous Blood Culture - Preliminary 03/05/21 20:52 Blood - Venous Blood Culture - Preliminary 03/05/21 Unknown Urine Catheterized - Vera Catheter Urine Culture - Preliminary No growth to date. Assessment and Plan (1) Gram-positive bacteremia: Status: Acute There is possible skin source Fever last 24 hours so dont think endocarditis likely Would continue Vancomycin U/S right arm area of pain and itching Await final culture Check echo If no endocarditis, 14 d IV depends on culture though
[2021-03-06 16:09] LABS: Glucose, Whole Blood 121 mg/dL (60-115)
[2021-03-06] MEDS: Furosemide 200 MG in 0.9 % Sodium Chloride 80 ML IVCONT (16:14)
--- NOTE | 2021-03-06 17:03 | HO.PM.IMPN ---
Subjective Subjective Date of Service: 03/06/21 Interval History: febrile with worsening dyspnea and hypoxia overnight currently feeling better though on 5L O2 via NC again febrile today BCx x2 growing GPCs in clusters, vancomycin started Physical Exam Vital Signs: Vital Signs: Last Vital Signs Temp 98.2 F 03/06/21 15:34 Pulse 79 03/06/21 16:14 Resp 19 03/06/21 15:34 BP 176/64 H 03/06/21 16:14 Pulse Ox 96 03/06/21 15:34 Oxygen Flow Rate 5 03/05/21 20:30 Body Mass Index 33.7 Gen: somewhat short of breath HEENT: sclera anicteric, moist mucus membranes Neck: supple Lungs: diminished bilaterally Heart: regular rate and rhythm, no murmurs Abd: soft, non-tender, non-distended Ext: 2+ pitting edema bilateral legs Skin: warm/well-perfused Neuro: alert and oriented x3, no focal findings Psych: appropriate affect Objective Data Current Medications Generic Name Dose Route Start Last Admin Trade Name Blayne PRN Reason Stop Dose Admin Acetaminophen 650 mg 03/03/21 18:00 03/06/21 11:46 Acetaminophen 325 Mg Tablet PO 650 mg Q6H PRN Administration Pain, Mild (Pain Scale 1-3) Amlodipine Besylate 10 mg 03/04/21 09:00 03/06/21 08:32 Amlodipine Besylate 10 Mg Tablet PO 10 mg DAILY PALOMO Administration Protocol Atorvastatin Calcium 40 mg 03/04/21 09:00 03/06/21 08:32 Atorvastatin Calcium 40 Mg Tablet PO 40 mg DAILY PALOMO Administration Cyanocobalamin 1,000 mcg 03/04/21 09:00 03/06/21 08:32 Cyanocobalamin (Vitamin B-12) 1,000 Mcg Tablet PO 1,000 mcg DAILY PALOMO Administration Hydralazine HCl 100 mg 03/03/21 21:00 03/06/21 16:14 Hydralazine Hcl 50 Mg Tablet PO 100 mg TID PALOMO Administration Protocol Furosemide 200 mg/ Sodium 100 mls @ 2.5 mls/hr 03/04/21 16:00 03/06/21 16:14 Chloride IVCONT 5 mg/hr .Q24H PALOMO 2.5 mls/hr Administration 5 MG/HR Vancomycin HCl 1,250 mg/ 250 mls @ 166.667 mls/hr 03/06/21 13:00 03/06/21 16:39 Sodium Chloride IV Infused Q48H [facility] Infusion Insulin Human Lispro 0 unit 03/03/21 21:00 03/06/21 16:11 Insulin Lispro 100 Unit/Ml 3 Ml Vial SUBCUT Not Given QIDACHS [facility] Protocol Ondansetron HCl 4 mg 03/03/21 18:00 Ondansetron Hcl 4 Mg/2 Ml Vial IVPUSH Q8H PRN Nausea and Vomiting Pharmacy Consult 1 each 03/06/21 11:44 Consult Rx Vancomycin Dosing MISCELLANE DAILY PRN Consult order Pregabalin 25 mg 03/03/21 21:00 03/06/21 08:32 Pregabalin 25 Mg Capsule PO 25 mg BID [facility] Administration Sodium Chloride 3 ml 03/04/21 00:00 03/06/21 16:14 0.9 % Sodium Chloride Flush 3 Ml Syringe IVFLUSH 3 ml QSHIFT [facility] Administration Labs CBC & Chem 7: 03/05/21 20:52 03/06/21 05:16 Labs: Laboratory Results - last 24 hr 03/05/21 03/05/21 03/05/21 20:13 20:52 20:52 WBC 11.0 H RBC 3.04 L Hgb 9.0 L Hct 28.4 L MCV 93.4 MCH 29.6 MCHC 31.7 RDW 16.2 H Plt Count 262 MPV 11.3 Immature Gran % (Auto) 0.8 H Neut % (Auto) 90.6 H Lymph % (Auto) 2.5 L [place] % (Auto) 5.4 Eos % (Auto) 0.5 Baso % (Auto) 0.2 Lymph # (Auto) 0.3 L [place] # (Auto) 0.6 Eos # (Auto) 0.1 Baso # (Auto) 0.0 Abs Immat Gran (auto) 0.09 H Absolute Neuts (auto) 10.0 H Absolute Nucleated RBC 0.000 Nucleated RBC % (auto) 0.0 Smear Tech's Comments VERIFIED Sodium 136 Potassium 4.6 Chloride 104 Carbon Dioxide 18 L Anion Gap 19 BUN 59 H Creatinine 2.69 H Estim Creat Clear Calc 19.1 Estimated GFR 17 POC Glucose 179 H Random Glucose 186 H D Lactic Acid Calcium 8.6 Magnesium Troponin I High Sens B-Natriuretic Peptide Procalcitonin Urine Color Urine Appearance Urine pH Ur Specific [place] Urine Protein Urine Glucose (UA) Urine Ketones Urine Blood Urine Nitrite Ur Leukocyte Esterase Urine RBC Urine WBC Ur Squamous Epith Cells Ur Renal Epithelial Cell Amorphous Sediment Urine Bacteria Granular Casts Waxy Casts WBC Casts Urine Mucus 03/05/21 03/05/21 03/05/21 20:52 20:52 20:52 WBC RBC Hgb Hct MCV MCH MCHC RDW Plt Count MPV Immature Gran % (Auto) Neut % (Auto) Lymph % (Auto) [place] % (Auto) Eos % (Auto) Baso % (Auto) Lymph # (Auto) [place] # (Auto) Eos # (Auto) Baso # (Auto) Abs Immat Gran (auto) Absolute Neuts (auto) Absolute Nucleated RBC Nucleated RBC % (auto) Smear Tech's Comments Sodium Potassium Chloride Carbon Dioxide Anion Gap BUN Creatinine Estim Creat Clear Calc Estimated GFR POC Glucose Random Glucose Lactic Acid 0.7 Calcium Magnesium Troponin I High Sens 16.7 B-Natriuretic Peptide 511 H Procalcitonin Urine Color Urine Appearance Urine pH Ur Specific [place] Urine Protein Urine Glucose (UA) Urine Ketones Urine Blood Urine Nitrite Ur Leukocyte Esterase Urine RBC Urine WBC Ur Squamous Epith Cells Ur Renal Epithelial Cell Amorphous Sediment Urine Bacteria Granular Casts Waxy Casts WBC Casts Urine Mucus 03/05/21 03/06/21 03/06/21 22:20 05:16 05:16 WBC RBC Hgb Hct MCV MCH MCHC RDW Plt Count MPV Immature Gran % (Auto) Neut % (Auto) Lymph % (Auto) [place] % (Auto) Eos % (Auto) Baso % (Auto) Lymph # (Auto) [place] # (Auto) Eos # (Auto) Baso # (Auto) Abs Immat Gran (auto) Absolute Neuts (auto) Absolute Nucleated RBC Nucleated RBC % (auto) Smear Tech's Comments Sodium 138 Potassium 4.6 Chloride 105 Carbon Dioxide 17 L Anion Gap 21 H BUN 62 H Creatinine 2.67 H Estim Creat Clear Calc 18.8 Estimated GFR 17 POC Glucose Random Glucose 84 D Lactic Acid Calcium 8.3 L Magnesium 1.6 Troponin I High Sens B-Natriuretic Peptide Procalcitonin 0.55 Urine Color STRAW Urine Appearance CLEAR Urine pH 5.5 Ur Specific [place] 1.020 Urine Protein 2+ H Urine Glucose (UA) NEG Urine Ketones NEG Urine Blood TRACE Urine Nitrite NEG Ur Leukocyte Esterase NEG Urine RBC 5-9 H Urine WBC 5-9 H Ur Squamous Epith Cells TRACE Ur Renal Epithelial Cell 1+ Amorphous Sediment 1+ Urine Bacteria NONE Granular Casts 1-4 Waxy Casts 0-2 WBC Casts 0-2 Urine Mucus 2+ 03/06/21 03/06/21 03/06/21 05:43 07:01 10:56 WBC RBC Hgb Hct MCV MCH MCHC RDW Plt Count MPV Immature Gran % (Auto) Neut % (Auto) Lymph % (Auto) [place] % (Auto) Eos % (Auto) Baso % (Auto) Lymph # (Auto) [place] # (Auto) Eos # (Auto) Baso # (Auto) Abs Immat Gran (auto) Absolute Neuts (auto) Absolute Nucleated RBC Nucleated RBC % (auto) Smear Tech's Comments Sodium Potassium Chloride Carbon Dioxide Anion Gap BUN Creatinine Estim Creat Clear Calc Estimated GFR POC Glucose 108 163 H Random Glucose Lactic Acid Calcium Magnesium Troponin I High Sens B-Natriuretic Peptide 723 H Procalcitonin Urine Color Urine Appearance Urine pH Ur Specific [place] Urine Protein Urine Glucose (UA) Urine Ketones Urine Blood Urine Nitrite Ur Leukocyte Esterase Urine RBC Urine WBC Ur Squamous Epith Cells Ur Renal Epithelial Cell Amorphous Sediment Urine Bacteria Granular Casts Waxy Casts WBC Casts Urine Mucus 03/06/21 16:06 WBC RBC Hgb Hct MCV MCH MCHC RDW Plt Count MPV Immature Gran % (Auto) Neut % (Auto) Lymph % (Auto) [place] % (Auto) Eos % (Auto) Baso % (Auto) Lymph # (Auto) [place] # (Auto) Eos # (Auto) Baso # (Auto) Abs Immat Gran (auto) Absolute Neuts (auto) Absolute Nucleated RBC Nucleated RBC % (auto) Smear Tech's Comments Sodium Potassium Chloride Carbon Dioxide Anion Gap BUN Creatinine Estim Creat Clear Calc Estimated GFR POC Glucose 121 H Random Glucose Lactic Acid Calcium Magnesium Troponin I High Sens B-Natriuretic Peptide Procalcitonin Urine Color Urine Appearance Urine pH Ur Specific [place] Urine Protein Urine Glucose (UA) Urine Ketones Urine Blood Urine Nitrite Ur Leukocyte Esterase Urine RBC Urine WBC Ur Squamous Epith Cells Ur Renal Epithelial Cell Amorphous Sediment Urine Bacteria Granular Casts Waxy Casts WBC Casts Urine Mucus Impressions Chest X-Ray 03/05/21 20:13 IMPRESSION: Cardiomegaly with left lower lobe atelectasis/collapse with small left effusion, unchanged. Chest X-Ray 03/06/21 10:10 IMPRESSION: Stable enlargement of the cardiac silhouette and question pulmonary venous redistribution. Left lower lobe airspace disease probably representing pneumonia and small left pleural effusion. Microbiology Microbiology Results: Microbiology 03/05/21 20:52 Blood Culture - Preliminary Blood - Venous 03/05/21 20:52 Blood Culture - Preliminary Blood - Venous 03/05/21 Unknown Urine Culture - Preliminary Urine Catheterized - Vera Catheter No growth to date. Quality Stroke Does the patient have a stroke diagnosis?: No VTE Prior VTE?: No VTE Risk Level:: Medical - moderate - high VTE Device Contraindication: N/A - Device Ordered VTE Drug Contraindication: Treatment Not Indicated Assessment and Plan (1) Acute respiratory failure with hypoxia: Status: Acute (2) Acute on chronic diastolic heart failure: Status: Acute (3) Anemia: Status: Acute (4) B12 deficiency: Status: Acute (5) Chronic renal insufficiency: Status: Acute Assessment and Plan: hospital d#4 80yo F with HFpEF presented with worsening STEWART + edema admitted for acute hypoxia from CHF exacerbation found to be bacteremic with pneumonia # GPC bacteremia # pneumonia - start vancomycin, ID consulted, check TTE, follow BCx, repeat BCx to ensure clearance, trend PCT # acute/chronic HFpEF - IV furosemide gtt, -4.1L so far, monitor weight/I+O/BMP/BNP/Mg - TTE 01/09/21 showed low normal LV systolic function with mild LVH with impaired relaxation filling pattern and elevated filling pressures - per pt outpt bumetanide dose was reduced from 2 mg to 1 mg daily # acute hypoxic RF - suppl O2, wean as tolerated # acute/chronic anemia - likely multifactorial due to CKD, B12 deficiency [repleted], gastritis s/p recent EGD + C-scope. FOBT negative. responded appropriately to 1u PRBCs transfused # HTN - continue amlodipine + hydralazine, may need additional agent if not fully controlled # CKD4 - SCr stable at baseline, monitor carefully while in furosemide gtt # DM2 - correction-dose lipsro # DM neuropathy - pregabalin # PVD - continue statin # VTE ppx - SCDs, no heparin due to anemia Family updated at bedside
[2021-03-06 20:47] LABS: Glucose, Whole Blood 150 mg/dL (60-115)
[2021-03-07] VITALS (13 sets, daily range): BP systolic 139–172; BP diastolic 61–74; PULSE 77–90; RESP 18–20; TEMP 36.8–37.8; O2SAT 91–97
[2021-03-07] MEDS: 0.9 % Sodium Chloride Flush 3 ML SYRINGE IVFLUSH ×3 (00:03→21:03)
[2021-03-07 07:09] LABS: Glucose, Whole Blood 98 mg/dL (60-115)
[2021-03-07 07:51] LABS: Anion Gap 18 (12-20); Blood Urea Nitrogen 63 mg/dL (9-16); Calcium 8.3 mg/dL (8.4-10.2); Carbon Dioxide 21 mmol/L (22-29); Chloride 101 mmol/L (96-108); Creatinine Clr Calc Pharmacy 17.6; Estimated Glomerular Filt Rate 16; Glucose Random 99 mg/dL (60-115); Magnesium 1.5 mg/dL (1.6-2.6); Potassium 4.1 mmol/L (3.3-5.1); Sodium 136 mmol/L (135-145)
[2021-03-07 07:52] LABS: B Type Natriuretic Peptide 411 pg/mL (<100)
[2021-03-07 08:30] LABS: Procalcitonin 0.76 ng/mL
[2021-03-07] MEDS: amLODIPine Besylate 10 MG TABLET PO (09:33)
[2021-03-07] MEDS: Pregabalin 25 MG CAPSULE PO ×2 (09:34→21:02)
[2021-03-07] MEDS: hydrALAZINE HCl 50 MG TABLET 100 MG PO ×3 (09:34→21:02)
[2021-03-07] MEDS: Atorvastatin Calcium 40 MG TABLET PO (09:34)
[2021-03-07] MEDS: cefTRIAXone sodium 1 GM in 0.9 % Sodium Chloride 50 ML IV (09:34)
[2021-03-07] MEDS: Cyanocobalamin (Vitamin B-12) 1,000 MCG TABLET 1000 MCG PO (09:34)
--- NOTE | 2021-03-07 10:00 | CA_ITS ---
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 - E/E prime ratio is >15, consistent with elevated filling pressures. - The basal inferior segment is akinetic. - There is mild aortic valve stenosis. - There is a trace posterior pericardial effusion. Findings Left Ventricle Normal left ventricular size and systolic function. There is moderately increased left ventricular wall thickness. The visually estimated ejection fraction is between 55-60%. There is evidence of regional wall motion abnormalities. Abnormal diastolic function is noted. Spectral Doppler is indicative of an impaired relaxation filling pattern. E/E prime ratio is >15, consistent with elevated filling pressures. Wall Motion Rest Echo Findings The basal inferior segment is akinetic. Right Ventricle Normal right ventricular cavity size and systolic function. Atria The left atrium is mildly dilated. There is no evidence of interatrial shunt by color Doppler. The right atrium is mildly dilated. Aortic Valve There is a normal trileaflet aortic valve. There is mild aortic valve stenosis. There is no aortic valve regurgitation. Mitral Valve There is mild mitral annular calcification. There is no mitral valve regurgitation. There is no mitral valve stenosis. Pulmonic Valve Normal pulmonic valve structure and function. There is trace pulmonic valve regurgitation. Tricuspid Valve Normal tricuspid valve structure and function. There is no tricuspid valve regurgitation. Normal right atrial pressure. There is no evidence of pulmonary hypertension. Great Vessels All visible segments of the aorta are normal in size. The visualized portions of the pulmonary artery and branches are normal. Venous The inferior vena cava is normal in size and collapses greater than 50% with inspiration. Pericardium/Pleural There are no definitive echocardiographic findings of tamponade physiology. There is a trace posterior pericardial effusion. Measurements 2D Linear Measurements IVSd: 1.31 0.6-0.9/0.6-1.0 cm LVIDd: 5.19 3.9-5.3/4.2-5.9 cm LVIDd Index: 2.61 2.4-3.2/2.2-3.1 cm/m2 LVIDs: 3.60 2.0-3.6 cm LVPWd: 1.36 0.7-1.1 cm Ao Root: 2.80 2.1-3.5 cm LA Diam: 4.50 2.7-3.8/3.0-4.0 cm LAIDs Index: 2.26 1.5-2.3 cm/m2 LV Mass: 359.62 67-162/88-224 g LV Mass Index: 180.71 43-95/49-115 g/m2 LVOT Diam: 2.00 3.0+(-)1.3 cm Mitral Valve MV Pk E: 1.24 MV PK A: 1.41 MV Decel Time: 203.00 E/A: 0.90 E'Lateral: 5.22 E'Medial: 3.81 E/E' Med: 32.50 E/E' Lat: 23.80 PHT: 60.00 MVA PHT: 3.67 Decel [place]: 6.11 Aortic Valve AoV Pk Alejo: 2.18 AoV Mn [place]jo: 1.54 AoV VTI: 0.46 AoV Pk Grad: 19.00 Aov Mn Grad: 11.00 OSWALDO Cont.VTI: 1.50 LVOT LVOT Pk [place]: 1.14 LVOT Mn [place]: 0.76 LVOT VTI: 0.22 LVOT Pk Grad: 5.00 LVOT Mn Grad: 3.00 LVOT Diam: 2.00 LVOT Area: 3.14 Diastolic Function MV Pk E: 1.24 MV Pk A: 1.41 E/A: 0.90 E'Medial: 3.81 E/E' Med: 32.50 E' Laterial: 5.22 E/E' Lat: 23.80 Right Ventricle TAPSE (mm): 2.08 Tricuspid Valve TR Pk [place]: 1.89 TR Pk Grad: 14.00 RA Press: 3.00 RVSP: 17.00 Great Vessels Aorta Ao Root-2D: 2.80 2.0-3.7 cm Ao Asc: 3.10 2.1-3.4 cm Pulmonary Valve PV Pk Alejo: 1.18 Peak PV Grad: 6.00 Updated in Other Vendor System with Status of Final Toney Long MD electronically signed on 03/07/2021 10:26:40 PM with status of Final
[2021-03-07] MEDS: Magnesium Sulfate/H2O 2 GM/50 ML PIGGYBACK IV (10:37)
[2021-03-07 11:18] LABS: Glucose, Whole Blood 178 mg/dL (60-115)
[2021-03-07] MEDS: Insulin Lispro 100 UNIT/ML 3 ML VIAL SUBCUT ×3 (11:56→21:03)
--- NOTE | 2021-03-07 13:01 | MHC.CM.PN ---
per multidis rounds pt may need fpc iv antibiotics , anticapates pt being here over the weekend
[2021-03-07 13:33] LABS: Vancomycin Random 11.6 mcg/mL (15-20)
--- NOTE | 2021-03-07 14:11 | HO.PM.IMPN ---
Subjective Subjective Date of Service: 03/07/21 Interval History: Has developed redness/swelling in R AC fossa Febrile to 101.3 yesterday evening Breathing improved Denies cough Physical Exam Vital Signs: Vital Signs: Last Vital Signs Temp 99.2 F 03/07/21 11:14 Pulse 82 03/07/21 11:14 Resp 18 03/07/21 11:14 BP 151/68 H 03/07/21 11:14 Pulse Ox 96 03/07/21 11:14 Oxygen Flow Rate 5 03/05/21 20:30 Body Mass Index 33.7 Gen: NAD HEENT: sclera anicteric, moist mucus membranes Neck: supple Lungs: diminished bilaterally Heart: regular rate and rhythm, no murmurs Abd: soft, non-tender, non-distended Ext: 1+ pitting edema bilateral legs Skin: warm/well-perfused, R AC fossa with erythema and induration overlying an area of fluctuance Neuro: alert and oriented x3, no focal findings Psych: appropriate affect Objective Data Current Medications Generic Name Dose Route Start Last Admin Trade Name Blayne PRN Reason Stop Dose Admin Acetaminophen 650 mg 03/03/21 18:00 03/06/21 20:20 Acetaminophen 325 Mg Tablet PO 650 mg Q6H PRN Administration Pain, Mild (Pain Scale 1-3) Amlodipine Besylate 10 mg 03/04/21 09:00 03/07/21 09:33 Amlodipine Besylate 10 Mg Tablet PO 10 mg DAILY [facility] Administration Protocol Atorvastatin Calcium 40 mg 03/04/21 09:00 03/07/21 09:34 Atorvastatin Calcium 40 Mg Tablet PO 40 mg DAILY [facility] Administration Cyanocobalamin 1,000 mcg 03/04/21 09:00 03/07/21 09:34 Cyanocobalamin (Vitamin B-12) 1,000 Mcg Tablet PO 1,000 mcg DAILY [facility] Administration Hydralazine HCl 100 mg 03/03/21 21:00 03/07/21 09:34 Hydralazine Hcl 50 Mg Tablet PO 100 mg TID [facility] Administration Protocol Furosemide 200 mg/ Sodium 100 mls @ 2.5 mls/hr 03/04/21 16:00 03/06/21 16:14 Chloride IVCONT 5 mg/hr .Q24H [facility] 2.5 mls/hr Administration 5 MG/HR Vancomycin HCl 1,250 mg/ 250 mls @ 166.667 mls/hr 03/06/21 13:00 03/06/21 16:39 Sodium Chloride IV Infused Q48H [facility] Infusion Ceftriaxone Sodium 1 gm/ 50 mls @ 100 mls/hr 03/07/21 09:00 03/07/21 10:37 Sodium Chloride IV Infused Q24H [facility] Infusion Insulin Human Lispro 0 unit 03/03/21 21:00 03/07/21 11:56 Insulin Lispro 100 Unit/Ml 3 Ml Vial SUBCUT 2 unit QIDACHS [facility] Administration Protocol Ondansetron HCl 4 mg 03/03/21 18:00 Ondansetron Hcl 4 Mg/2 Ml Vial IVPUSH Q8H PRN Nausea and Vomiting Pharmacy Consult 1 each 03/06/21 11:44 Consult Rx Vancomycin Dosing MISCELLANE DAILY PRN Consult order Pregabalin 25 mg 03/03/21 21:00 03/07/21 09:34 Pregabalin 25 Mg Capsule PO 25 mg BID [facility] Administration Sodium Chloride 3 ml 03/04/21 00:00 03/07/21 10:47 0.9 % Sodium Chloride Flush 3 Ml Syringe IVFLUSH 3 ml QSHIFT [facility] Administration Labs CBC & Chem 7: 03/05/21 20:52 03/07/21 06:01 Labs: Laboratory Results - last 24 hr 03/06/21 03/06/21 03/07/21 16:06 20:21 06:01 Sodium Potassium Chloride Carbon Dioxide Anion Gap BUN Creatinine Estim Creat Clear Calc Estimated GFR POC Glucose 121 H 150 H Random Glucose Calcium Magnesium B-Natriuretic Peptide Procalcitonin 0.76 Random Vancomycin 03/07/21 03/07/21 03/07/21 06:01 06:01 07:05 Sodium 136 Potassium 4.1 Chloride 101 Carbon Dioxide 21 L Anion Gap 18 BUN 63 H Creatinine 2.85 H Estim Creat Clear Calc 17.6 Estimated GFR 16 POC Glucose 98 Random Glucose 99 Calcium 8.3 L Magnesium 1.5 L B-Natriuretic Peptide 411 H Procalcitonin Random Vancomycin 03/07/21 03/07/21 11:13 12:10 Sodium Potassium Chloride Carbon Dioxide Anion Gap BUN Creatinine Estim Creat Clear Calc Estimated GFR POC Glucose 178 H Random Glucose Calcium Magnesium B-Natriuretic Peptide Procalcitonin Random Vancomycin 11.6 L Microbiology Microbiology Results: Microbiology 03/05/21 Unknown Urine Culture - Final Urine Catheterized - Vera Catheter 03/05/21 20:52 Blood Culture - Preliminary Blood - Venous Staphylococcus aureus 03/05/21 20:52 Blood Culture - Preliminary Blood - Venous Staphylococcus aureus Quality Stroke Does the patient have a stroke diagnosis?: No VTE Prior VTE?: No VTE Risk Level:: Medical - moderate - high VTE Device Contraindication: N/A - Device Ordered VTE Drug Contraindication: Treatment Not Indicated Assessment and Plan (1) Acute respiratory failure with hypoxia: Status: Acute (2) Acute on chronic diastolic heart failure: Status: Acute (3) Anemia: Status: Acute (4) B12 deficiency: Status: Acute (5) Chronic renal insufficiency: Status: Acute Assessment and Plan: hospital d#5 80yo F with HFpEF presented with worsening STEWART + edema admitted for acute hypoxia from CHF exacerbation found to be bacteremic with Staph aureus # Staph aureus bacteremia # purulent cellulitis # pneumonia - vancomycin d#2, TTE pending, - start vancomycin, ID following, await susceptibilties of Staph aureus, check TTE, repeat BCx to ensure clearance, trend PCT, consult Gen/Surg for abscess drainage # acute/chronic HFpEF - IV furosemide gtt, -5.5L so far, monitor weight/I+O/BMP/BNP/Mg - TTE 01/09/21 showed low normal LV systolic function with mild LVH with impaired relaxation filling pattern and elevated filling pressures - per pt outpt bumetanide dose was reduced from 2 mg to 1 mg daily # acute hypoxic RF - suppl O2, wean as tolerated # acute/chronic anemia - likely multifactorial due to CKD, B12 deficiency [repleted], gastritis s/p recent EGD + C-scope. FOBT negative. responded appropriately to 1u PRBCs transfused # HTN - continue amlodipine + hydralazine # CKD4 - SCr stable at baseline, monitor carefully while in furosemide gtt # DM2 - correction-dose lipsro # DM neuropathy - pregabalin # PVD - continue statin # VTE ppx - SCDs, no heparin due to anemia
[2021-03-07] MEDS: Furosemide 200 MG in 0.9 % Sodium Chloride 80 ML IVCONT (15:55)
[2021-03-07] MEDS: Acetaminophen 325 MG TABLET 650 MG PO (16:06)
--- NOTE | 2021-03-07 16:07 | PM.CNGS ---
History of Present Illness Consult details Consult date: 03/07/21 Narrative: 80-year-old female with multiple medical problems including CHF, monoclonal gammopathy is, chronic anemia, and chronic renal insufficiency, was admitted on 03/03/2021 because of shortness of breath. She was deemed to be in acute on chronic CHF. She has been in the hospital since then. She was noted to have an area of pain swelling and redness on the antecubital fossa today. This was deemed to be likely from a previous IV site. I was therefore consulted. Review of Systems Constitutional: Constitutional: Denies chills, Reports fatigue and Denies fever(s) Cardiovascular: Cardiovascular: Denies chest pain, Reports dyspnea and Reports dyspnea on exertion Respiratory: Respiratory: Reports cough, Reports dyspnea and Reports dyspnea on exertion Gastrointestinal: Gastrointestinal: Denies hematochezia and Denies change in bowel habits Genitourinary: Genitourinary: Denies hematuria Musculoskeletal: Musculoskeletal: Denies back pain and Denies limited range of motion Neurologic: Denies focal weakness and Denies convulsions Psychiatric: Psychiatric: Denies depression and Denies mood swings Endocrine: Endocrine: Reports fatigue PMFSH Past Medical History Medical History (Updated 03/07/21 @ 16:26 by Caroline Carrion MD) Abscess of forearm, right CKD (chronic kidney disease) Diabetes Femoral artery stenosis Gram-positive bacteremia High cholesterol Hypertension Lower extremity edema Psoriasis of scalp PVD (peripheral vascular disease) Family History Family History Father No problems noted. Mother No problems noted. Family history: reviewed and not pertinent Surgical History Surgical History History of female sterilization History of shoulder surgery Social History Social History Household Members: Family Household Members Other:: Daughter Housing: House Do you presently have visiting nurse or other home services: Yes Alcohol intake: never Patient Tobacco Use Status: Never used Tobacco Use of substances other than those prescribed or required for medical reasons: No Currently Displaying Signs/Symptoms of Drug Intoxication Withdrawal: No Have you been hit, kicked, punched, or otherwise hurt by someone within the past year? If so, by whom?: No Do you feel safe in your current relationship?: No Current Relationship Is there a partner from a previous relationship who is making you feel unsafe now?: No Are you made to feel afraid or neglected: No Advance Directives: No Advance Directives Information Provided: No Advance Directives Date on File: 01/08/21 Do you have thoughts of harming others: None Do you have a plan to hurt others: No Plan Recently lost weight without trying: No Eating poorly because of decreased appetite: No Nutrition Risks: No Nutritional Risk Patient : No : No Poor oral hygiene: No service: No Current occupational status: retired and disabled Meds Allergies Allergy/AdvReac Type Severity Reaction Status Date / Time Iodinated Contrast Media Allergy Unknown UNKNOWN Verified 12/26/20 13:27 [IODINATED CONTRAST MEDIA] Active Medications: Current Medications Generic Name Dose Route Start Last Admin Trade Name Freq PRN Reason Stop Dose Admin Acetaminophen 650 mg 03/03/21 18:00 03/06/21 20:20 Acetaminophen 325 Mg Tablet PO 650 mg Q6H PRN Administration Pain, Mild (Pain Scale 1-3) Amlodipine Besylate 10 mg 03/04/21 09:00 03/07/21 09:33 Amlodipine Besylate 10 Mg Tablet PO 10 mg DAILY [facility] Administration Protocol Atorvastatin Calcium 40 mg 03/04/21 09:00 03/07/21 09:34 Atorvastatin Calcium 40 Mg Tablet PO 40 mg DAILY [facility] Administration Cyanocobalamin 1,000 mcg 03/04/21 09:00 03/07/21 09:34 Cyanocobalamin (Vitamin B-12) 1,000 Mcg Tablet PO 1,000 mcg DAILY [facility] Administration Hydralazine HCl 100 mg 03/03/21 21:00 03/07/21 15:55 Hydralazine Hcl 50 Mg Tablet PO 100 mg TID [facility] Administration Protocol Furosemide 200 mg/ Sodium 100 mls @ 2.5 mls/hr 03/04/21 16:00 03/07/21 15:55 Chloride IVCONT 5 mg/hr .Q24H [facility] 2.5 mls/hr Administration 5 MG/HR Vancomycin HCl 1,250 mg/ 250 mls @ 166.667 mls/hr 03/06/21 13:00 03/06/21 16:39 Sodium Chloride IV Infused Q48H [facility] Infusion Insulin Human Lispro 0 unit 03/03/21 21:00 03/07/21 11:56 Insulin Lispro 100 Unit/Ml 3 Ml Vial SUBCUT 2 unit QIDACHS [facility] Administration Protocol Ondansetron HCl 4 mg 03/03/21 18:00 Ondansetron Hcl 4 Mg/2 Ml Vial IVPUSH Q8H PRN Nausea and Vomiting Pharmacy Consult 1 each 03/06/21 11:44 Consult Rx Vancomycin Dosing MISCELLANE DAILY PRN Consult order Pregabalin 25 mg 03/03/21 21:00 03/07/21 09:34 Pregabalin 25 Mg Capsule PO 25 mg BID [facility] Administration Sodium Chloride 3 ml 03/04/21 00:00 03/07/21 15:56 0.9 % Sodium Chloride Flush 3 Ml Syringe IVFLUSH Not Given QSHIFT [facility] Home Medications Medication Instructions Recorded Confirmed Last Taken Type amlodipine 10 mg PO DAILY 01/07/21 03/03/21 Unknown History atorvastatin 40 mg PO DAILY 01/07/21 03/03/21 Unknown History multivitamin with folic acid 400 1 tab PO DAILY 03/02/21 03/03/21 Unknown History mcg tablet bumetanide 1 mg PO DAILY 03/03/21 03/03/21 Unknown History sitagliptin [Januvia] 1 tab PO DAILY 03/03/21 03/03/21 Unknown History Physical Exam Vital Signs: Vital Signs: Last Vital Signs Temp 98.3 F 03/07/21 15:20 Pulse 90 03/07/21 15:55 Resp 18 03/07/21 15:20 BP 172/71 H 03/07/21 15:55 Pulse Ox 94 03/07/21 15:20 Oxygen Flow Rate 5 03/05/21 20:30 Body Mass Index 33.7 Const: Other: Appears frail, shortness of breath, on oxygen supplement Resp: Auscultation: crackles Cardio: Rhythm: regular rhythm GI: Palpation (GI): Soft to palpation, not firm and nontender Extrem: Other: Right forearm near the antecubital fossa is note of an area of induration, about 3 cm, of central fluctuance and redness Results Labs Result diagrams: 03/08/21 06:09 03/08/21 06:09 Labs: Abnormal lab results 03/06/21 03/06/21 03/07/21 Range/Units 16:06 20:21 06:01 Carbon Dioxide 21 L (22-29) mmol/L BUN 63 H (9-16) mg/dL Creatinine 2.85 H (0.5-1.4) mg/dL POC Glucose 121 H 150 H (60-115) mg/dL Calcium 8.3 L (8.4-10.2) mg/dL Magnesium 1.5 L (1.6-2.6) mg/dL B-Natriuretic Peptide (<100) pg/mL Random Vancomycin (15-20) mcg/mL 03/07/21 03/07/21 03/07/21 Range/Units 06:01 11:13 12:10 Carbon Dioxide (22-29) mmol/L BUN (9-16) mg/dL Creatinine (0.5-1.4) mg/dL POC Glucose 178 H (60-115) mg/dL Calcium (8.4-10.2) mg/dL Magnesium (1.6-2.6) mg/dL B-Natriuretic Peptide 411 H (<100) pg/mL Random Vancomycin 11.6 L (15-20) mcg/mL BMP 03/07/21 06:01 Sodium 136 Potassium 4.1 Chloride 101 Carbon Dioxide 21 L BUN 63 H Creatinine 2.85 H Calcium 8.3 L Urine 03/03/21 03/05/21 Range/Units 14:50 22:20 Urine Color YELLOW STRAW Urine Appearance CLEAR CLEAR Urine pH 6.0 5.5 (5.0-8.0) Ur Specific [place] 1.020 1.020 (1.005-1.025) Urine Protein 3+ H 2+ H (NEG-TRACE) MG/DL Urine Glucose (UA) 100 H NEG (NEG) MG/DL All other labs normal. Assessment and Plan (1) Abscess of forearm, right: Status: Acute I explained to her that we needed to do an I and D under local anesthesia at bedside. I reviewed with her the technique of this procedure as well as the risks, benefits, and alternatives. She agreed to proceed. The area of the tubal fossa was prepped and draped. Lidocaine 1% was used for local anesthesia. I made a cruciate incision in the skin overlying this fluctuant area using a blade 11. And this carried down through the full-thickness of skin and subcutaneous fat until an abscess cavity was entered. Pus was seen and cultures of these were taken. I debrided the area bluntly I left the wound open and up applied dry dressings as well as a Citlaly wrap on the area of the arm. She tolerated the procedure well. There were no complications noted. I will see her for wound check and dressing changes tomorrow. We can await for the culture report. She is on antibiotics at this time. Procedures Date of Service Date of Service: 03/08/21
[2021-03-07 16:21] LABS: Glucose, Whole Blood 162 mg/dL (60-115)
--- NOTE | 2021-03-07 16:23 | PM.IDPN ---
Subjective Subjective Date of Service: 03/07/21 Interval History: she has no complaints Critical Care Time (minutes): 15 Objective Data Labs CBC & Chem 7: 03/05/21 20:52 03/07/21 06:01 Labs: Laboratory Results - last 24 hr 03/06/21 03/07/21 03/07/21 20:21 06:01 06:01 Sodium 136 Potassium 4.1 Chloride 101 Carbon Dioxide 21 L Anion Gap 18 BUN 63 H Creatinine 2.85 H Estim Creat Clear Calc 17.6 Estimated GFR 16 POC Glucose 150 H Random Glucose 99 Calcium 8.3 L Magnesium 1.5 L B-Natriuretic Peptide Procalcitonin 0.76 Random Vancomycin 03/07/21 03/07/21 03/07/21 06:01 07:05 11:13 Sodium Potassium Chloride Carbon Dioxide Anion Gap BUN Creatinine Estim Creat Clear Calc Estimated GFR POC Glucose 98 178 H Random Glucose Calcium Magnesium B-Natriuretic Peptide 411 H Procalcitonin Random Vancomycin 03/07/21 03/07/21 12:10 16:18 Sodium Potassium Chloride Carbon Dioxide Anion Gap BUN Creatinine Estim Creat Clear Calc Estimated GFR POC Glucose 162 H Random Glucose Calcium Magnesium B-Natriuretic Peptide Procalcitonin Random Vancomycin 11.6 L Microbiology Microbiology Results: Microbiology 03/05/21 Unknown Urine Catheterized - Vera Catheter Urine Culture - Final 03/05/21 20:52 Blood - Venous Blood Culture - Preliminary Staphylococcus aureus 03/05/21 20:52 Blood - Venous Blood Culture - Preliminary Staphylococcus aureus Physical Exam Vital Signs: Vital Signs: Last Vital Signs Temp 98.3 F 03/07/21 15:20 Pulse 90 03/07/21 15:55 Resp 18 03/07/21 15:20 BP 172/71 H 03/07/21 15:55 Pulse Ox 94 03/07/21 15:20 Oxygen Flow Rate 5 03/05/21 20:30 Body Mass Index 33.7 Const: General: cooperative Resp: Effort & Inspection: normal respiratory effort Cardio: Rate: regular rate Rhythm: regular rhythm GI: Palpation (GI): Soft to palpation and nontender Skin: General skin exam: no rashes or lesions noted Extrem: Other: right antecubital swelling Assessment and Plan Assessment and plan (1) Abscess of forearm, right: Status: Acute (2) Gram-positive bacteremia: Problem details: staph aureus bacteremia Abscess2.9 x 1.3 x .7 cm Status: Acute Assessment and Plan: Bacteremia Staph aureus,final pending Would give IV Vancomycin Adjust as needed Surgery drain abscess Time Spent With Patient Time: Total time spent is greater than 50% in coordination of care (as documented) at patient's floor/unit and/or counseling patient: Time with patient: 15 - 24 minutes
[2021-03-07 19:50] LABS: Glucose, Whole Blood 236 mg/dL (60-115)
[2021-03-08] VITALS (10 sets, daily range): BP systolic 140–165; BP diastolic 64–71; PULSE 76–86; RESP 18–20; TEMP 36.9–37.3; O2SAT 94–98
[2021-03-08 06:53] LABS: Hematocrit 26.2 % (37-47); Hemoglobin 8.1 g/dl (12.0-16.0); Mean Corpuscular HGB Conc 30.9 g/dl (31.0-35.0); Mean Corpuscular Hemoglobin 29.6 pg (27.0-33.0); Mean Corpuscular Volume 95.6 fL (80-98); Mean Platelet Volume 12.4 fL (9.4-12.3); Platelet Count 155 X10*3/uL (160-400); Red Blood Count 2.74 X10*6/uL (4.20-5.50); Red Cell Distribution Width 15.8 % (11.0-16.0); White Blood Count 7.4 X10*3/uL (4.8-10.8)
[2021-03-08 07:12] LABS: Anion Gap 19 (12-20); B Type Natriuretic Peptide 261 pg/mL (<100); Blood Urea Nitrogen 66 mg/dL (9-16); Calcium 8.2 mg/dL (8.4-10.2); Carbon Dioxide 19 mmol/L (22-29); Chloride 101 mmol/L (96-108); Creatinine Clr Calc Pharmacy 17.5; Estimated Glomerular Filt Rate 16; Glucose Random 110 mg/dL (60-115); Sodium 134 mmol/L (135-145)
[2021-03-08 07:19] LABS: Glucose, Whole Blood 108 mg/dL (60-115)
[2021-03-08] MEDS: Pregabalin 25 MG CAPSULE PO ×2 (08:37→20:14)
[2021-03-08] MEDS: amLODIPine Besylate 10 MG TABLET PO (08:37)
[2021-03-08] MEDS: Atorvastatin Calcium 40 MG TABLET PO (08:37)
[2021-03-08] MEDS: hydrALAZINE HCl 50 MG TABLET 100 MG PO ×3 (08:37→20:14)
[2021-03-08] MEDS: Cyanocobalamin (Vitamin B-12) 1,000 MCG TABLET 1000 MCG PO (08:37)
--- NOTE | 2021-03-08 10:35 | P.PNGS_ITS ---
Subjective Subjective Date of Service: 03/08/21 Interval history: I and D of abscess on the right forearm done yesterday She says she feels better - much less pain Physical Exam Vital Signs: Vital Signs: Last Vital Signs Temp 99.2 F 03/08/21 07:14 Pulse 76 03/08/21 08:37 Resp 20 03/08/21 07:14 BP 142/64 H 03/08/21 08:37 Pulse Ox 94 03/08/21 09:00 Oxygen Flow Rate 5 03/05/21 20:30 Body Mass Index 33.7 Const: Other: Frail looking, in bed but answers questions, not in distress Resp: Other: A little short of breath Cardio: Rate: regular rate GI: Palpation (GI): Soft to palpation and nontender Extrem: Other: I and D site on the right arm with much less induration, dry, no fluctuance Progress Note: A&P Assessment and plan (1) Abscess of forearm, right: Status: Acute Assessment and Plan: I and D done under local anesthesia at bedside yesterday Area much improved Dressings changed I applied a Citlaly roll around the area Continue antibiotics and follow up on cultures Wound care Fall Risk Details Current Medications: Current Medications Generic Name Dose Route Start Last Admin Trade Name Freq PRN Reason Stop Dose Admin Acetaminophen 650 mg 03/03/21 18:00 03/07/21 16:06 Acetaminophen 325 Mg Tablet PO 650 mg Q6H PRN Administration Pain, Mild (Pain Scale 1-3) Amlodipine Besylate 10 mg 03/04/21 09:00 03/08/21 08:37 Amlodipine Besylate 10 Mg Tablet PO 10 mg DAILY [facility] Administration Protocol Atorvastatin Calcium 40 mg 03/04/21 09:00 03/08/21 08:37 Atorvastatin Calcium 40 Mg Tablet PO 40 mg DAILY [facility] Administration Cyanocobalamin 1,000 mcg 03/04/21 09:00 03/08/21 08:37 Cyanocobalamin (Vitamin B-12) 1,000 Mcg Tablet PO 1,000 mcg DAILY [facility] Administration Hydralazine HCl 100 mg 03/03/21 21:00 03/08/21 08:37 Hydralazine Hcl 50 Mg Tablet PO 100 mg TID [facility] Administration Protocol Furosemide 200 mg/ Sodium 100 mls @ 2.5 mls/hr 03/04/21 16:00 03/07/21 15:55 Chloride IVCONT 5 mg/hr .Q24H [facility] 2.5 mls/hr Administration 5 MG/HR Vancomycin HCl 1,250 mg/ 250 mls @ 166.667 mls/hr 03/06/21 13:00 03/06/21 16:39 Sodium Chloride IV Infused Q48H [facility] Infusion Insulin Human Lispro 0 unit 03/03/21 21:00 03/08/21 08:30 Insulin Lispro 100 Unit/Ml 3 Ml Vial SUBCUT Not Given QIDACHS [facility] Protocol Ondansetron HCl 4 mg 03/03/21 18:00 Ondansetron Hcl 4 Mg/2 Ml Vial IVPUSH Q8H PRN Nausea and Vomiting Pharmacy Consult 1 each 03/06/21 11:44 Consult Rx Vancomycin Dosing MISCELLANE DAILY PRN Consult order Pregabalin 25 mg 03/03/21 21:00 03/08/21 08:37 Pregabalin 25 Mg Capsule PO 25 mg BID [facility] Administration Sodium Chloride 3 ml 03/04/21 00:00 03/08/21 08:38 0.9 % Sodium Chloride Flush 3 Ml Syringe IVFLUSH Not Given QSHIFT [facility] Time Spent With Patient Time: Total time spent is greater than 50% in coordination of care (as documented) at patient's floor/unit and/or counseling patient: Time with patient: 15 - 24 minutes Procedures Date of Service Date of Service: 03/08/21 Quality Stroke Does the patient have a stroke diagnosis?: No VTE Prior VTE?: No VTE Risk Level:: Medical - moderate - high VTE Device Contraindication: N/A - Device Ordered VTE Drug Contraindication: Treatment Not Indicated
--- NOTE | 2021-03-08 10:58 | P.PNIM_ITS ---
Subjective Subjective Date of Service: 03/08/21 Interval History: fever resolved no cough dyspnea improved very weak R AC abscess drained yesterday afternoon Physical Exam Vital Signs: Vital Signs: Last Vital Signs Temp 99.2 F 03/08/21 07:14 Pulse 76 03/08/21 08:37 Resp 20 03/08/21 07:14 BP 142/64 H 03/08/21 08:37 Pulse Ox 94 03/08/21 09:00 Oxygen Flow Rate 5 03/05/21 20:30 Body Mass Index 33.7 Gen: NAD HEENT: sclera anicteric, moist mucus membranes Neck: supple Lungs: diminished bilaterally Heart: regular rate and rhythm, no murmurs Abd: soft, non-tender, non-distended Ext: 1+ pitting edema bilateral legs Skin: warm/well-perfused, R AC fossa with erythema and induration overlying an area of fluctuance Neuro: alert and oriented x3, no focal findings Psych: appropriate affect Objective Data Current Medications Generic Name Dose Route Start Last Admin Trade Name Freq PRN Reason Stop Dose Admin Acetaminophen 650 mg 03/03/21 18:00 03/07/21 16:06 Acetaminophen 325 Mg Tablet PO 650 mg Q6H PRN Administration Pain, Mild (Pain Scale 1-3) Amlodipine Besylate 10 mg 03/04/21 09:00 03/08/21 08:37 Amlodipine Besylate 10 Mg Tablet PO 10 mg DAILY [facility] Administration Protocol Atorvastatin Calcium 40 mg 03/04/21 09:00 03/08/21 08:37 Atorvastatin Calcium 40 Mg Tablet PO 40 mg DAILY [facility] Administration Cyanocobalamin 1,000 mcg 03/04/21 09:00 03/08/21 08:37 Cyanocobalamin (Vitamin B-12) 1,000 Mcg Tablet PO 1,000 mcg DAILY [facility] Administration Hydralazine HCl 100 mg 03/03/21 21:00 03/08/21 08:37 Hydralazine Hcl 50 Mg Tablet PO 100 mg TID [facility]O Administration Protocol Furosemide 200 mg/ Sodium 100 mls @ 2.5 mls/hr 03/04/21 16:00 03/07/21 15:55 Chloride IVCONT 5 mg/hr .Q24H [facility] 2.5 mls/hr Administration 5 MG/HR Vancomycin HCl 1,250 mg/ 250 mls @ 166.667 mls/hr 03/06/21 13:00 03/06/21 16:39 Sodium Chloride IV Infused Q48H [facility] Infusion Insulin Human Lispro 0 unit 03/03/21 21:00 03/08/21 08:30 Insulin Lispro 100 Unit/Ml 3 Ml Vial SUBCUT Not Given QIDACHS [facility] Protocol Ondansetron HCl 4 mg 03/03/21 18:00 Ondansetron Hcl 4 Mg/2 Ml Vial IVPUSH Q8H PRN Nausea and Vomiting Pharmacy Consult 1 each 03/06/21 11:44 Consult Rx Vancomycin Dosing MISCELLANE DAILY PRN Consult order Pregabalin 25 mg 03/03/21 21:00 03/08/21 08:37 Pregabalin 25 Mg Capsule PO 25 mg BID [facility] Administration Sodium Chloride 3 ml 03/04/21 00:00 03/08/21 08:38 0.9 % Sodium Chloride Flush 3 Ml Syringe IVFLUSH Not Given QSHIFT [facility] Labs CBC & Chem 7: 03/08/21 06:09 03/08/21 06:09 Labs: Laboratory Results - last 24 hr 03/07/21 03/07/21 03/07/21 11:13 12:10 16:18 WBC RBC Hgb Hct MCV MCH MCHC RDW Plt Count MPV Absolute Nucleated RBC Nucleated RBC % (auto) Sodium Potassium Chloride Carbon Dioxide Anion Gap BUN Creatinine Estim Creat Clear Calc Estimated GFR POC Glucose 178 H 162 H Random Glucose Calcium Magnesium B-Natriuretic Peptide Random Vancomycin 11.6 L 03/07/21 03/08/21 03/08/21 19:44 06:09 06:09 WBC 7.4 RBC 2.74 L Hgb 8.1 L Hct 26.2 L MCV 95.6 MCH 29.6 MCHC 30.9 L RDW 15.8 Plt Count 155 L D MPV 12.4 H Absolute Nucleated RBC 0.000 Nucleated RBC % (auto) 0.0 Sodium 134 L Potassium 5.0 D Chloride 101 Carbon Dioxide 19 L Anion Gap 19 BUN 66 H Creatinine 2.86 H Estim Creat Clear Calc 17.5 Estimated GFR 16 POC Glucose 236 H Random Glucose 110 Calcium 8.2 L Magnesium 2.0 B-Natriuretic Peptide Random Vancomycin 03/08/21 03/08/21 06:09 07:13 WBC RBC Hgb Hct MCV MCH MCHC RDW Plt Count MPV Absolute Nucleated RBC Nucleated RBC % (auto) Sodium Potassium Chloride Carbon Dioxide Anion Gap BUN Creatinine Estim Creat Clear Calc Estimated GFR POC Glucose 108 Random Glucose Calcium Magnesium B-Natriuretic Peptide 261 H Random Vancomycin Microbiology Microbiology Results: Microbiology 03/07/21 06:01 Blood Culture - Preliminary Blood - Venous No growth after 24 hours. 03/07/21 15:26 Gram Stain - Final Arm Right Routine Culture - Preliminary Staphylococcus aureus 03/07/21 06:01 Blood Culture - Preliminary Blood - Venous No growth after 24 hours. 03/05/21 20:52 Blood Culture - Final Blood - Venous Staphylococcus aureus 03/05/21 20:52 Blood Culture - Final Blood - Venous Staphylococcus aureus 03/05/21 Unknown Urine Culture - Final Urine Catheterized - Vera Catheter TTE 03/07/21 - Normal left ventricular size and systolic function. - E/E prime ratio is >15, consistent with elevated filling pressures. - The basal inferior segment is akinetic. - There is mild aortic valve stenosis. - There is a trace posterior pericardial effusion. Quality Stroke Does the patient have a stroke diagnosis?: No VTE Prior VTE?: No VTE Risk Level:: Medical - moderate - high VTE Device Contraindication: N/A - Device Ordered VTE Drug Contraindication: Treatment Not Indicated Assessment and Plan (1) Acute respiratory failure with hypoxia: Status: Acute (2) Acute on chronic diastolic heart failure: Status: Acute (3) Anemia: Status: Acute (4) B12 deficiency: Status: Acute (5) Chronic renal insufficiency: Status: Acute Assessment and Plan: hospital d#6 80yo F with HFpEF presented with worsening STEWART + edema admitted for acute hypoxia from CHF exacerbation found to be bacteremic with Staph aureus, ?source- abscess? # MSSA acteremia # purulent cellulitis # pneumonia - switch vancomycin to cefazolin, renally dosed, 14d from negative culture - TTE without evidence of IE, surveillance Cx pending - trend PCT # acute/chronic HFpEF - continue IV furosemide gtt, -7.6L so far, monitor weight/I+O/BMP/BNP/Mg, - TTE 01/09/21 showed low normal LV systolic function with mild LVH with impaired relaxation filling pattern and elevated filling pressures - per pt outpt bumetanide dose was reduced from 2 mg to 1 mg daily # acute hypoxic RF - suppl O2, wean as tolerated # acute/chronic anemia - likely multifactorial due to CKD, B12 deficiency [repleted], gastritis s/p recent EGD + C-scope. FOBT negative. responded appropriately to 1u PRBCs transfused # HTN - continue amlodipine + hydralazine # CKD4 - SCr stable at baseline, monitor carefully while in furosemide gtt # DM2 - correction-dose lipsro # DM neuropathy - pregabalin # PVD - continue statin # VTE ppx - SCDs, no heparin due to anemia # dispo - will need STR
[2021-03-08 11:13] LABS: Glucose, Whole Blood 167 mg/dL (60-115)
[2021-03-08] MEDS: polyethylene glycoL 3350 17 GM POWD.PACK PO (11:49)
[2021-03-08] MEDS: Insulin Lispro 100 UNIT/ML 3 ML VIAL SUBCUT ×2 (11:50→16:29)
--- NOTE | 2021-03-08 15:20 | MHC.CLN ---
RE: CONSULT RECOMMEND ADDING GLUCERNA BID AND TITO TO PROMOTE WOUND HEALING SUPPLEMENT PROVIDES [id number], 25G PROTEIN MONITOR PO INTAKE CLOSELY FULL CLINICAL NUTRITION ASSESSMENT TO FOLLOW
[2021-03-08 16:25] LABS: Glucose, Whole Blood 226 mg/dL (60-115)
[2021-03-08] MEDS: Furosemide 200 MG in 0.9 % Sodium Chloride 80 ML IVCONT (16:29)
[2021-03-08] MEDS: 0.9 % Sodium Chloride Flush 3 ML SYRINGE IVFLUSH ×2 (16:30→20:15)
[2021-03-08 19:49] LABS: Glucose, Whole Blood 144 mg/dL (60-115)
[2021-03-09] VITALS (11 sets, daily range): BP systolic 140–176; BP diastolic 60–82; PULSE 74–86; RESP 16–20; TEMP 36.5–37.1; O2SAT 95–97; BMI 34.2
[2021-03-09 06:27] LABS: Hematocrit 24.8 % (37-47); Hemoglobin 8.1 g/dl (12.0-16.0); Mean Corpuscular HGB Conc 32.7 g/dl (31.0-35.0); Mean Corpuscular Hemoglobin 29.9 pg (27.0-33.0); Mean Corpuscular Volume 91.5 fL (80-98); Platelet Count 238 X10*3/uL (160-400); Red Blood Count 2.71 X10*6/uL (4.20-5.50); Red Cell Distribution Width 15.6 % (11.0-16.0); White Blood Count 7.2 X10*3/uL (4.8-10.8)
[2021-03-09 07:00] LABS: Anion Gap 17 (12-20); Blood Urea Nitrogen 67 mg/dL (9-16); Calcium 8.4 mg/dL (8.4-10.2); Carbon Dioxide 23 mmol/L (22-29); Chloride 101 mmol/L (96-108); Creatinine Clr Calc Pharmacy 17.6; Estimated Glomerular Filt Rate 16; Glucose Random 125 mg/dL (60-115); Magnesium 1.8 mg/dL (1.6-2.6); Potassium 4.2 mmol/L (3.3-5.1); Sodium 137 mmol/L (135-145)
[2021-03-09 07:15] LABS: Procalcitonin 0.82 ng/mL
[2021-03-09 07:27] LABS: Glucose, Whole Blood 121 mg/dL (60-115)
[2021-03-09 07:28] LABS: B Type Natriuretic Peptide 313 pg/mL (<100)
[2021-03-09] MEDS: Atorvastatin Calcium 40 MG TABLET PO (08:48)
[2021-03-09] MEDS: Pregabalin 25 MG CAPSULE PO ×2 (08:48→21:17)
[2021-03-09] MEDS: amLODIPine Besylate 10 MG TABLET PO (08:48)
[2021-03-09] MEDS: polyethylene glycoL 3350 17 GM POWD.PACK PO (08:48)
[2021-03-09] MEDS: hydrALAZINE HCl 50 MG TABLET 100 MG PO ×3 (08:48→21:17)
[2021-03-09] MEDS: 0.9 % Sodium Chloride Flush 3 ML SYRINGE IVFLUSH ×2 (08:48→16:09)
[2021-03-09] MEDS: Cyanocobalamin (Vitamin B-12) 1,000 MCG TABLET 1000 MCG PO (08:48)
--- NOTE | 2021-03-09 10:04 | PM.PNGS ---
Subjective Subjective Date of Service: 03/09/21 Interval history: No new complaints A little short of breath as baseline Says pain on forearm is better Physical Exam Vital Signs: Vital Signs: Last Vital Signs Temp 97.7 F 03/09/21 08:00 Pulse 82 03/09/21 08:48 Resp 19 03/09/21 08:00 BP 175/65 H 03/09/21 08:48 Pulse Ox 95 03/09/21 08:00 Oxygen Flow Rate 5 03/05/21 20:30 Body Mass Index 34.2 Const: Other: Mildly short of breath Cardio: Rate: regular rate GI: Palpation (GI): Soft to palpation and nontender Extrem: Other: Right forearm I&D site much improved, induration is much less open wound dry and clean Progress Note: A&P Assessment and plan (1) Abscess of forearm, right: Status: Acute Assessment and Plan: Status post I and D I have changed her dressings Dry dressings daily - okay to use band aid Cultures showing MRSA Fall Risk Details Current Medications: Current Medications Generic Name Dose Route Start Last Admin Trade Name Blayne PRN Reason Stop Dose Admin Acetaminophen 650 mg 03/03/21 18:00 03/07/21 16:06 Acetaminophen 325 Mg Tablet PO 650 mg Q6H PRN Administration Pain, Mild (Pain Scale 1-3) Amlodipine Besylate 10 mg 03/04/21 09:00 03/09/21 08:48 Amlodipine Besylate 10 Mg Tablet PO 10 mg DAILY [facility]OMO Administration Protocol Atorvastatin Calcium 40 mg 03/04/21 09:00 03/09/21 08:48 Atorvastatin Calcium 40 Mg Tablet PO 40 mg DAILY [facility] Administration Cyanocobalamin 1,000 mcg 03/04/21 09:00 03/09/21 08:48 Cyanocobalamin (Vitamin B-12) 1,000 Mcg Tablet PO 1,000 mcg DAILY [facility] Administration Hydralazine HCl 100 mg 03/03/21 21:00 03/09/21 08:48 Hydralazine Hcl 50 Mg Tablet PO 100 mg TID [facility] Administration Protocol Furosemide 200 mg/ Sodium 100 mls @ 2.5 mls/hr 03/04/21 16:00 03/08/21 16:29 Chloride IVCONT 5 mg/hr .Q24H [facility] 2.5 mls/hr Administration 5 MG/HR Cefazolin Sodium 1 gm/ Sodium 50 mls @ 100 mls/hr 03/08/21 15:30 03/09/21 03:14 Chloride IV Infused Q12H [facility] Infusion Insulin Human Lispro 0 unit 03/03/21 21:00 03/09/21 07:28 Insulin Lispro 100 Unit/Ml 3 Ml Vial SUBCUT Not Given QIDACHS [facility] Protocol Ondansetron HCl 4 mg 03/03/21 18:00 Ondansetron Hcl 4 Mg/2 Ml Vial IVPUSH Q8H PRN Nausea and Vomiting Pharmacy Consult 1 each 03/06/21 11:44 Consult Rx Vancomycin Dosing MISCELLANE DAILY PRN Consult order Polyethylene Glycol 17 gm 03/08/21 11:20 03/09/21 08:48 Polyethylene Glycol 3350 17 Gm Powd.Pack PO 17 gm DAILY [facility] Administration Pregabalin 25 mg 03/03/21 21:00 03/09/21 08:48 Pregabalin 25 Mg Capsule PO 25 mg BID [facility] Administration Sodium Chloride 3 ml 03/04/21 00:00 03/09/21 08:48 0.9 % Sodium Chloride Flush 3 Ml Syringe IVFLUSH 3 ml QSHIFT [facility] Administration Time Spent With Patient Time: Total time spent is greater than 50% in coordination of care (as documented) at patient's floor/unit and/or counseling patient: Time with patient: 15 - 24 minutes Procedures Date of Service Date of Service: 03/09/21 Quality Stroke Does the patient have a stroke diagnosis?: No VTE Prior VTE?: No VTE Risk Level:: Medical - moderate - high VTE Device Contraindication: N/A - Device Ordered VTE Drug Contraindication: Treatment Not Indicated
[2021-03-09 11:55] LABS: Glucose, Whole Blood 189 mg/dL (60-115)
[2021-03-09] MEDS: Insulin Lispro 100 UNIT/ML 3 ML VIAL SUBCUT ×3 (11:59→21:18)
--- NOTE | 2021-03-09 15:02 | HO.PM.IMPN ---
Subjective Subjective Date of Service: 03/09/21 Interval History: no fever O2 requirement down to 2L R arm abscess improved Physical Exam Vital Signs: Vital Signs: Last Vital Signs Temp 98.5 F 03/09/21 11:14 Pulse 81 03/09/21 11:14 Resp 20 03/09/21 11:14 BP 157/63 H 03/09/21 11:14 Pulse Ox 97 03/09/21 11:14 Oxygen Flow Rate 5 03/05/21 20:30 Body Mass Index 34.2 Gen: NAD HEENT: sclera anicteric, moist mucus membranes Neck: supple Lungs: diminished bilaterally Heart: regular rate and rhythm, no murmurs Abd: soft, non-tender, non-distended Ext: trace pitting edema bilateral legs Skin: warm/well-perfused, R AC fossa with drained abscess site- erythema + induration markedly improved Neuro: alert and oriented x3, no focal findings Psych: appropriate affect Objective Data Current Medications Generic Name Dose Route Start Last Admin Trade Name Freq PRN Reason Stop Dose Admin Acetaminophen 650 mg 03/03/21 18:00 03/07/21 16:06 Acetaminophen 325 Mg Tablet PO 650 mg Q6H PRN Administration Pain, Mild (Pain Scale 1-3) Amlodipine Besylate 10 mg 03/04/21 09:00 03/09/21 08:48 Amlodipine Besylate 10 Mg Tablet PO 10 mg DAILY [facility] Administration Protocol Atorvastatin Calcium 40 mg 03/04/21 09:00 03/09/21 08:48 Atorvastatin Calcium 40 Mg Tablet PO 40 mg DAILY [facility] Administration Bumetanide 2 mg 03/09/21 17:00 Bumetanide 1 Mg Tablet PO BID@0800,1700 [facility] Protocol Cyanocobalamin 1,000 mcg 03/04/21 09:00 03/09/21 08:48 Cyanocobalamin (Vitamin B-12) 1,000 Mcg Tablet PO 1,000 mcg DAILY [facility] Administration Hydralazine HCl 100 mg 03/03/21 21:00 03/09/21 08:48 Hydralazine Hcl 50 Mg Tablet PO 100 mg TID [facility] Administration Protocol Cefazolin Sodium 1 gm/ Sodium 50 mls @ 100 mls/hr 03/08/21 15:30 03/09/21 03:14 Chloride IV Infused Q12H [facility] Infusion Insulin Human Lispro 0 unit 03/03/21 21:00 03/09/21 11:59 Insulin Lispro 100 Unit/Ml 3 Ml Vial SUBCUT 2 unit QIDACHS [facility] Administration Protocol Ondansetron HCl 4 mg 03/03/21 18:00 Ondansetron Hcl 4 Mg/2 Ml Vial IVPUSH Q8H PRN Nausea and Vomiting Pharmacy Consult 1 each 03/06/21 11:44 Consult Rx Vancomycin Dosing MISCELLANE DAILY PRN Consult order Polyethylene Glycol 17 gm 03/08/21 11:20 03/09/21 08:48 Polyethylene Glycol 3350 17 Gm Powd.Pack PO 17 gm DAILY [facility] Administration Pregabalin 25 mg 03/03/21 21:00 03/09/21 08:48 Pregabalin 25 Mg Capsule PO 25 mg BID [facility] Administration Sodium Chloride 3 ml 03/04/21 00:00 03/09/21 08:48 0.9 % Sodium Chloride Flush 3 Ml Syringe IVFLUSH 3 ml QSHIFT [facility] Administration Labs CBC & Chem 7: 03/09/21 05:42 03/09/21 05:42 Labs: Laboratory Results - last 24 hr 03/08/21 03/08/21 03/09/21 16:22 19:43 05:42 WBC 7.2 RBC 2.71 L Hgb 8.1 L Hct 24.8 L MCV 91.5 MCH 29.9 MCHC 32.7 RDW 15.6 Plt Count 238 D MPV 11.0 Absolute Nucleated RBC 0.000 Nucleated RBC % (auto) 0.0 Sodium Potassium Chloride Carbon Dioxide Anion Gap BUN Creatinine Estim Creat Clear Calc Estimated GFR POC Glucose 226 H 144 H Random Glucose Calcium Magnesium B-Natriuretic Peptide Procalcitonin 03/09/21 03/09/21 03/09/21 05:42 05:42 05:42 WBC RBC Hgb Hct MCV MCH MCHC RDW Plt Count MPV Absolute Nucleated RBC Nucleated RBC % (auto) Sodium 137 Potassium 4.2 Chloride 101 Carbon Dioxide 23 Anion Gap 17 BUN 67 H Creatinine 2.87 H Estim Creat Clear Calc 17.6 Estimated GFR 16 POC Glucose Random Glucose 125 H Calcium 8.4 Magnesium 1.8 B-Natriuretic Peptide 313 H Procalcitonin 0.82 03/09/21 03/09/21 07:21 11:07 WBC RBC Hgb Hct MCV MCH MCHC RDW Plt Count MPV Absolute Nucleated RBC Nucleated RBC % (auto) Sodium Potassium Chloride Carbon Dioxide Anion Gap BUN Creatinine Estim Creat Clear Calc Estimated GFR POC Glucose 121 H 189 H Random Glucose Calcium Magnesium B-Natriuretic Peptide Procalcitonin Microbiology Microbiology Results: Microbiology 03/07/21 06:01 Blood Culture - Preliminary Blood - Venous No growth after 48 hours. 03/07/21 06:01 Blood Culture - Preliminary Blood - Venous No growth after 48 hours. 03/07/21 15:26 Gram Stain - Final Arm Right Routine Culture - Final Methicillin Res Staph Aureus Quality Stroke Does the patient have a stroke diagnosis?: No VTE Prior VTE?: No VTE Risk Level:: Medical - moderate - high VTE Device Contraindication: N/A - Device Ordered VTE Drug Contraindication: Treatment Not Indicated Assessment and Plan (1) Acute respiratory failure with hypoxia: Status: Acute (2) Acute on chronic diastolic heart failure: Status: Acute (3) Anemia: Status: Acute (4) B12 deficiency: Status: Acute (5) Chronic renal insufficiency: Status: Acute Assessment and Plan: hospital d#7 80yo F with HFpEF presented with worsening STEWART + edema admitted for acute hypoxia from CHF exacerbation found to be bacteremic with Staph aureus, ?source- abscess? # MSSA bacteremia # pneumonia - switched vancomycin to cefazolin, renally dosed, 14d from negative culture 03/07/21 - midline placement today - TTE without evidence of IE - trend PCT # purulent cellulitis - growing MRSA- discuss coverage with ID # acute/chronic HFpEF - close to euvolemic p diuresing 11L, change to PO bumetanide - TTE 01/09/21 showed low normal LV systolic function with mild LVH with impaired relaxation filling pattern and elevated filling pressures # acute hypoxic RF - suppl O2, wean as tolerated # acute/chronic anemia - likely multifactorial due to CKD, B12 deficiency [repleted], gastritis s/p recent EGD + C-scope. FOBT negative. responded appropriately to 1u PRBCs transfused # HTN - continue amlodipine + hydralazine # CKD4 - SCr stable at baseline # DM2 - correction-dose lipsro # DM neuropathy - pregabalin # PVD - continue statin # VTE ppx - SCDs, no heparin due to anemia # dispo - will need STR
[2021-03-09 15:57] LABS: Glucose, Whole Blood 153 mg/dL (60-115)
[2021-03-09] MEDS: Bumetanide 1 MG TABLET 2 MG PO (15:59)
--- NOTE | 2021-03-09 16:30 | PM.IDPN ---
Subjective Subjective Date of Service: 03/09/21 Critical Care Time (minutes): 15 Comment: she is doing well Objective Data Labs CBC & Chem 7: 03/09/21 05:42 03/09/21 05:42 Labs: Laboratory Results - last 24 hr 03/08/21 03/09/21 03/09/21 19:43 05:42 05:42 WBC 7.2 RBC 2.71 L Hgb 8.1 L Hct 24.8 L MCV 91.5 MCH 29.9 MCHC 32.7 RDW 15.6 Plt Count 238 D MPV 11.0 Absolute Nucleated RBC 0.000 Nucleated RBC % (auto) 0.0 Sodium 137 Potassium 4.2 Chloride 101 Carbon Dioxide 23 Anion Gap 17 BUN 67 H Creatinine 2.87 H Estim Creat Clear Calc 17.6 Estimated GFR 16 POC Glucose 144 H Random Glucose 125 H Calcium 8.4 Magnesium 1.8 B-Natriuretic Peptide Procalcitonin 03/09/21 03/09/21 03/09/21 05:42 05:42 07:21 WBC RBC Hgb Hct MCV MCH MCHC RDW Plt Count MPV Absolute Nucleated RBC Nucleated RBC % (auto) Sodium Potassium Chloride Carbon Dioxide Anion Gap BUN Creatinine Estim Creat Clear Calc Estimated GFR POC Glucose 121 H Random Glucose Calcium Magnesium B-Natriuretic Peptide 313 H Procalcitonin 0.82 03/09/21 03/09/21 11:07 15:46 WBC RBC Hgb Hct MCV MCH MCHC RDW Plt Count MPV Absolute Nucleated RBC Nucleated RBC % (auto) Sodium Potassium Chloride Carbon Dioxide Anion Gap BUN Creatinine Estim Creat Clear Calc Estimated GFR POC Glucose 189 H 153 H Random Glucose Calcium Magnesium B-Natriuretic Peptide Procalcitonin Microbiology Microbiology Results: Microbiology 03/07/21 06:01 Blood - Venous Blood Culture - Preliminary No growth after 48 hours. 03/07/21 06:01 Blood - Venous Blood Culture - Preliminary No growth after 48 hours. 03/07/21 15:26 Arm Right Gram Stain - Final 03/07/21 15:26 Arm Right Routine Culture - Final Methicillin Res Staph Aureus 03/05/21 20:52 Blood - Venous Blood Culture - Final Staphylococcus aureus 03/05/21 20:52 Blood - Venous Blood Culture - Final Staphylococcus aureus 03/05/21 Unknown Urine Catheterized - Vera Catheter Urine Culture - Final Physical Exam Vital Signs: Vital Signs: Last Vital Signs Temp 98.7 F 03/09/21 16:00 Pulse 86 03/09/21 16:00 Resp 16 03/09/21 16:00 BP 154/82 H 03/09/21 16:00 Pulse Ox 97 03/09/21 16:00 Oxygen Flow Rate 5 03/05/21 20:30 Body Mass Index 34.2 Const: General: cooperative HENMT: Head: Yes normal to inspection Mouth: Normal oral and palatal mucosa present Resp: Effort & Inspection: normal respiratory effort Cardio: Rate: regular rate Rhythm: regular rhythm GI: Palpation (GI): Soft to palpation and nontender Extrem: Other: right arm cellulitic area clearing Assessment and Plan Assessment and plan (1) Abscess of forearm, right: Problem details: MRSA different from MSSA bacteremia Nevertheless should treat for MRSA Suggest 4 weeks IV Vancomycin trough and creatinine weekly Status: Acute (2) Gram-positive bacteremia: Problem details: staph aureus bacteremia Abscess2.9 x 1.3 x .7 cm Status: Acute Time Spent With Patient Time: Total time spent is greater than 50% in coordination of care (as documented) at patient's floor/unit and/or counseling patient: Time with patient: 15 - 24 minutes
--- NOTE | 2021-03-09 17:23 | HO.MIDLINE ---
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 Using ultrasound guidance, BRACHIAL vein access was obtained IN SINGLE ATTEMPT BY THIS RN; R CEPHALIC ATTEMPTED x1 BUT UNSUCCESSFUL BY THIS RN, SO TOTAL x2 ATTEMPTS MADE. A (2OG x 10CM) SINGLE LUMEN, NON-PASV MIDLINE was positioned. The procedure was performed in -1. Ultrasound was used to document vein patency and for needle entry. A formal ultrasound picture was recorded. V[employer]ating [employer] Supervisor has released the line for use and it is currently dressed with a StatLock, Tegaderm, and CHG disc. Verification has been performed for blood return and line patency. Arm Circumference: 34 CM Equipment: [employer] POWERGLIDE PRO Catheter Type: (2OG x 10CM) SINGLE LUMEN, NON-PASV Lot #: [id number]
[2021-03-09] MEDS: Acetaminophen 325 MG TABLET 650 MG PO (17:32)
[2021-03-09] MEDS: vancomycin HCL 500 MG in 0.9 % Sodium Chloride 100 ML 110 MG IV (17:33)
[2021-03-09 20:31] LABS: Glucose, Whole Blood 229 mg/dL (60-115)
[2021-03-09] MEDS: Heparin Sodium,Porcine Flush 50 UNITS, 0.9 % Sodium Chloride Flush 5 ML IVFLUSH (22:28)
[2021-03-10] VITALS (10 sets, daily range): BP systolic 140–162; BP diastolic 60–66; PULSE 74–90; RESP 16–20; TEMP 36.4–37.9; O2SAT 92–95; BMI 34.2
[2021-03-10] MEDS: 0.9 % Sodium Chloride Flush 3 ML SYRINGE IVFLUSH ×4 (00:19→21:27)
[2021-03-10 05:37] LABS: B Type Natriuretic Peptide 279 pg/mL (<100)
[2021-03-10 05:38] LABS: Anion Gap 16 (12-20); Blood Urea Nitrogen 74 mg/dL (9-16); Calcium 8.4 mg/dL (8.4-10.2); Carbon Dioxide 26 mmol/L (22-29); Chloride 99 mmol/L (96-108); Creatinine Clr Calc Pharmacy 18.2; Estimated Glomerular Filt Rate 16; Glucose Random 100 mg/dL (60-115); Potassium 4.1 mmol/L (3.3-5.1); Sodium 137 mmol/L (135-145)
[2021-03-10 07:33] LABS: Glucose, Whole Blood 103 mg/dL (60-115)
[2021-03-10] MEDS: hydrALAZINE HCl 50 MG TABLET 100 MG PO ×3 (07:46→21:26)
[2021-03-10] MEDS: Pregabalin 25 MG CAPSULE PO ×2 (07:46→21:26)
[2021-03-10] MEDS: Cyanocobalamin (Vitamin B-12) 1,000 MCG TABLET 1000 MCG PO (07:47)
[2021-03-10] MEDS: Bumetanide 1 MG TABLET 2 MG PO ×2 (07:47→17:02)
[2021-03-10] MEDS: Acetaminophen 325 MG TABLET 650 MG PO (07:48)
[2021-03-10] MEDS: polyethylene glycoL 3350 17 GM POWD.PACK PO (07:48)
[2021-03-10] MEDS: Atorvastatin Calcium 40 MG TABLET PO (07:48)
[2021-03-10] MEDS: amLODIPine Besylate 10 MG TABLET PO (07:48)
[2021-03-10] MEDS: Heparin Sodium,Porcine Flush 50 UNITS, 0.9 % Sodium Chloride Flush 5 ML IVFLUSH ×2 (10:31→17:03)
[2021-03-10] MEDS: Lidocaine 4 % Patch ADH..PATCH 1 PATCH TRANSDERMA (11:01)
[2021-03-10] MEDS: oxyCODONE HCl Immed Release 5 MG TABLET PO ×2 (11:01→21:26)
[2021-03-10] MEDS: Cyclobenzaprine HCl 5 MG TABLET PO (11:02)
[2021-03-10 11:38] LABS: Glucose, Whole Blood 200 mg/dL (60-115)
[2021-03-10] MEDS: Insulin Lispro 100 UNIT/ML 3 ML VIAL SUBCUT ×3 (11:54→22:21)
--- NOTE | 2021-03-10 12:37 | P.PNIM_ITS ---
Subjective Subjective Date of Service: 03/10/21 Interval History: c/o R shoulder + neck pain dyspnea improved, leg swelling improved midline catheter placed yesterday Physical Exam Vital Signs: Vital Signs: Last Vital Signs Temp 97.6 F 03/10/21 11:17 Pulse 81 03/10/21 11:17 Resp 18 03/10/21 11:17 BP 160/60 H 03/10/21 11:17 Pulse Ox 95 03/10/21 11:17 Oxygen Flow Rate 5 03/05/21 20:30 Body Mass Index 34.2 Gen: NAD HEENT: sclera anicteric, moist mucus membranes Neck: supple Lungs: diminished bilaterally Heart: regular rate and rhythm, no murmurs Abd: soft, non-tender, non-distended Ext: trace pitting edema bilateral legs Skin: warm/well-perfused, R AC fossa with drained abscess site- erythema resolved; R upper arm with midline cathter MSK: anterior R shoulder tenderness, positive impingement sign, R trapezius mus donaldo spasm Neuro: alert and oriented x3, no focal findings Psych: appropriate affect Objective Data Current Medications Generic Name Dose Route Start Last Admin Trade Name Moralesq PRN Reason Stop Dose Admin Acetaminophen 650 mg 03/03/21 18:00 03/10/21 07:48 Acetaminophen 325 Mg Tablet PO 650 mg Q6H PRN Administration Pain, Mild (Pain Scale 1-3) Amlodipine Besylate 10 mg 03/04/21 09:00 03/10/21 07:48 Amlodipine Besylate 10 Mg Tablet PO 10 mg DAILY PALOMO Administration Protocol Atorvastatin Calcium 40 mg 03/04/21 09:00 03/10/21 07:48 Atorvastatin Calcium 40 Mg Tablet PO 40 mg DAILY PALOMO Administration Bumetanide 2 mg 03/09/21 17:00 03/10/21 07:47 Bumetanide 1 Mg Tablet PO 2 mg BID@0800,1700 PALOMO Administration Protocol Heparin Sodium (Porcine) 50 0 units 03/09/21 22:00 03/10/21 10:31 units/ Sodium Chloride 5 ml IVFLUSH 50 unit TID PALOMO Administration Cyanocobalamin 1,000 mcg 03/04/21 09:00 03/10/21 07:47 Cyanocobalamin (Vitamin B-12) 1,000 Mcg Tablet PO 1,000 mcg DAILY PALOMO Administration Cyclobenzaprine HCl 5 mg 03/10/21 10:31 03/10/21 11:02 Cyclobenzaprine Hcl 5 Mg Tablet PO 5 mg TID PRN Administration neck muscle spasm/pain Hydralazine HCl 100 mg 03/03/21 21:00 03/10/21 07:46 Hydralazine Hcl 50 Mg Tablet PO 100 mg TID PALOMO Administration Protocol Vancomycin HCl 500 mg/ Sodium 110 mls @ 110 mls/hr 03/09/21 18:00 03/09/21 18:43 Chloride IV Infused Q24H PALOMO Infusion Insulin Human Lispro 0 unit 03/03/21 21:00 03/10/21 11:54 Insulin Lispro 100 Unit/Ml 3 Ml Vial SUBCUT 2 unit QIDACHS [facility] Administration Protocol Lidocaine 1 patch 03/10/21 10:45 03/10/21 11:01 Lidocaine 4 % Patch Adh..Patch TRANSDERMA 1 patch DAILY PALOMO Administration Protocol Ondansetron HCl 4 mg 03/03/21 18:00 Ondansetron Hcl 4 Mg/2 Ml Vial IVPUSH Q8H PRN Nausea and Vomiting Oxycodone HCl 5 mg 03/10/21 10:31 03/10/21 11:01 Oxycodone Hcl Immed Release 5 Mg Tablet PO 5 mg Q6H PRN Administration pain, severe Pharmacy Consult 1 each 03/06/21 11:44 Consult Rx Vancomycin Dosing MISCELLANE DAILY PRN Consult order Pharmacy Consult 1 each 03/09/21 16:38 Consult Rx Vancomycin Dosing MISCELLANE DAILY PRN Consult order Polyethylene Glycol 17 gm 03/08/21 11:20 03/10/21 07:48 Polyethylene Glycol 3350 17 Gm Powd.Pack PO 17 gm DAILY PALOMO Administration Pregabalin 25 mg 03/03/21 21:00 03/10/21 07:46 Pregabalin 25 Mg Capsule PO 25 mg BID PALOMO Administration Sodium Chloride 3 ml 03/04/21 00:00 03/10/21 07:48 0.9 % Sodium Chloride Flush 3 Ml Syringe IVFLUSH 3 ml QSHIFT [facility] Administration Labs CBC & Chem 7: 03/09/21 05:42 03/10/21 04:08 Labs: Laboratory Results - last 24 hr 03/09/21 03/09/21 03/10/21 15:46 20:24 04:08 Sodium 137 Potassium 4.1 Chloride 99 Carbon Dioxide 26 Anion Gap 16 BUN 74 H Creatinine 2.78 H Estim Creat Clear Calc 18.2 Estimated GFR 16 POC Glucose 153 H 229 H Random Glucose 100 Calcium 8.4 B-Natriuretic Peptide 03/10/21 03/10/21 03/10/21 04:08 07:28 11:34 Sodium Potassium Chloride Carbon Dioxide Anion Gap BUN Creatinine Estim Creat Clear Calc Estimated GFR POC Glucose 103 200 H Random Glucose Calcium B-Natriuretic Peptide 279 H Microbiology Microbiology Results: Microbiology 03/07/21 06:01 Blood Culture - Preliminary Blood - Venous No growth after 48 hours. 03/07/21 06:01 Blood Culture - Preliminary Blood - Venous No growth after 48 hours. Quality Stroke Does the patient have a stroke diagnosis?: No VTE Prior VTE?: No VTE Risk Level:: Medical - moderate - high VTE Device Contraindication: N/A - Device Ordered VTE Drug Contraindication: Treatment Not Indicated Assessment and Plan (1) Acute respiratory failure with hypoxia: Status: Acute (2) Acute on chronic diastolic heart failure: Status: Acute (3) Anemia: Status: Acute (4) B12 deficiency: Status: Acute (5) Chronic renal insufficiency: Status: Acute Assessment and Plan: hospital d#8 80yo F with HFpEF presented with worsening STEWART + edema admitted for acute hypoxia from CHF exacerbation found to be bacteremic with Staph aureus, ?source- abscess? # MSSA bacteremia # pneumonia # MRSA abscess/cellulitis RUE s/p I+D 03/07 - back on vancomycin per ID, total 4 wk from negative culture 03/07/21, end date 04/03/21 - follow vanco trough carefully given renal impairment - midline placed 03/09/21 - TTE without evidence of IE - trend PCT # acute/chronic HFpEF - euvolemic p diuresing 11L, changed to PO bumetanide 2 mg bid for maintenance - TTE 01/09/21 showed low normal LV systolic function with mild LVH with impaired relaxation filling pattern and elevated filling pressures # acute hypoxic RF - supplemental O2, wean as tolerated # acute/chronic anemia - likely multifactorial due to CKD, B12 deficiency [repleted], gastritis s/p recent EGD + C-scope. FOBT negative. responded appropriately to 1u PRBCs transfused # HTN - continue amlodipine + hydralazine # CKD4 - SCr stable at baseline # DM2 - correction-dose lipsro # DM neuropathy - pregabalin # PVD - continue statin # VTE ppx - SCDs, no heparin due to anemia # dispo - will need STR
[2021-03-10 16:13] LABS: Glucose, Whole Blood 183 mg/dL (60-115)
[2021-03-10] MEDS: vancomycin HCL 500 MG in 0.9 % Sodium Chloride 100 ML 110 MG IV (19:39)
[2021-03-10 20:11] LABS: Glucose, Whole Blood 172 mg/dL (60-115)
[2021-03-11] VITALS (10 sets, daily range): BP systolic 144–157; BP diastolic 60–74; PULSE 80–93; RESP 18–20; TEMP 36.6–38.4; O2SAT 93–95; BMI 33.3
[2021-03-11 05:18] LABS: Hematocrit 25.7 % (37-47); Hemoglobin 8.2 g/dl (12.0-16.0); Mean Corpuscular HGB Conc 31.9 g/dl (31.0-35.0); Mean Corpuscular Hemoglobin 29.3 pg (27.0-33.0); Mean Corpuscular Volume 91.8 fL (80-98); Mean Platelet Volume 11.5 fL (9.4-12.3); Platelet Count 294 X10*3/uL (160-400); Red Cell Distribution Width 15.4 % (11.0-16.0)
[2021-03-11 06:00] LABS: Procalcitonin 0.66 ng/mL
[2021-03-11 06:28] LABS: Anion Gap 18 (12-20); Blood Urea Nitrogen 82 mg/dL (9-16); Calcium 8.4 mg/dL (8.4-10.2); Carbon Dioxide 25 mmol/L (22-29); Chloride 99 mmol/L (96-108); Creatinine Clr Calc Pharmacy 17.2; Estimated Glomerular Filt Rate 16; Glucose Random 143 mg/dL (60-115); Potassium 4.5 mmol/L (3.3-5.1); Sodium 137 mmol/L (135-145)
[2021-03-11 07:29] LABS: Glucose, Whole Blood 131 mg/dL (60-115)
[2021-03-11] MEDS: Pregabalin 25 MG CAPSULE PO ×2 (08:58→21:15)
[2021-03-11] MEDS: hydrALAZINE HCl 50 MG TABLET 100 MG PO ×3 (08:58→21:15)
[2021-03-11] MEDS: Cyanocobalamin (Vitamin B-12) 1,000 MCG TABLET 1000 MCG PO (08:58)
[2021-03-11] MEDS: 0.9 % Sodium Chloride Flush 3 ML SYRINGE IVFLUSH ×3 (08:58→21:16)
[2021-03-11] MEDS: Atorvastatin Calcium 40 MG TABLET PO (08:58)
[2021-03-11] MEDS: Lidocaine 4 % Patch ADH..PATCH 1 PATCH TRANSDERMA (08:58)
[2021-03-11] MEDS: Bumetanide 1 MG TABLET 2 MG PO ×2 (08:58→16:17)
[2021-03-11] MEDS: polyethylene glycoL 3350 17 GM POWD.PACK PO (08:58)
[2021-03-11] MEDS: amLODIPine Besylate 10 MG TABLET PO (08:58)
[2021-03-11] MEDS: Alteplase Cath Clear 2 MG VIAL INTRACATH (10:30)
--- NOTE | 2021-03-11 11:04 | PC.NURSE ---
Pt midline occluded. Alteplase ordered and given per medication insert and micromedex. After 30 minutes attempted to aspirate midline, unsuccessful, per insert reattempt in 90 minutes.
--- NOTE | 2021-03-11 11:20 | HO.PM.IMPN ---
Subjective Subjective Date of Service: 03/11/21 Interval History: Breathing improved. Shoulder/neck pain improved. No chest pain. Unfortunately, RUE midline clotted. Physical Exam Vital Signs: Vital Signs: Last Vital Signs Temp 98 F 03/11/21 10:58 Pulse 90 03/11/21 10:58 Resp 20 03/11/21 10:58 BP 152/74 H 03/11/21 10:58 Pulse Ox 95 03/11/21 10:58 Body Mass Index 33.3 Gen: NAD HEENT: sclera anicteric, moist mucus membranes Neck: supple Lungs: diminished bilaterally Heart: regular rate and rhythm, no murmurs Abd: soft, non-tender, non-distended Ext: trace pitting edema bilateral legs Skin: warm/well-perfused, R AC fossa with drained abscess site- erythema resolved; R upper arm with midline catheter Neuro: alert and oriented x3, no focal findings Psych: appropriate affect Objective Data Current Medications Generic Name Dose Route Start Last Admin Trade Name Freq PRN Reason Stop Dose Admin Acetaminophen 650 mg 03/03/21 18:00 03/10/21 07:48 Acetaminophen 325 Mg Tablet PO 650 mg Q6H PRN Administration Pain, Mild (Pain Scale 1-3) Amlodipine Besylate 10 mg 03/04/21 09:00 03/11/21 08:58 Amlodipine Besylate 10 Mg Tablet PO 10 mg DAILY [facility] Administration Protocol Atorvastatin Calcium 40 mg 03/04/21 09:00 03/11/21 08:58 Atorvastatin Calcium 40 Mg Tablet PO 40 mg DAILY PALOMO Administration Bumetanide 2 mg 03/09/21 17:00 03/11/21 08:58 Bumetanide 1 Mg Tablet PO 2 mg BID@0800,1700 [facility] Administration Protocol Heparin Sodium (Porcine) 50 0 units 03/09/21 22:00 03/11/21 09:10 units/ Sodium Chloride 5 ml IVFLUSH Not Given TID PALOMO Cyanocobalamin 1,000 mcg 03/04/21 09:00 03/11/21 08:58 Cyanocobalamin (Vitamin B-12) 1,000 Mcg Tablet PO 1,000 mcg DAILY PALOMO Administration Cyclobenzaprine HCl 5 mg 03/10/21 10:31 03/10/21 11:02 Cyclobenzaprine Hcl 5 Mg Tablet PO 5 mg TID PRN Administration neck muscle spasm/pain Hydralazine HCl 100 mg 03/03/21 21:00 03/11/21 08:58 Hydralazine Hcl 50 Mg Tablet PO 100 mg TID PALOMO Administration Protocol Vancomycin HCl 500 mg/ Sodium 110 mls @ 110 mls/hr 03/09/21 18:00 03/10/21 20:40 Chloride IV Infused Q24H [facility] Infusion Insulin Human Lispro 0 unit 03/03/21 21:00 03/11/21 07:39 Insulin Lispro 100 Unit/Ml 3 Ml Vial SUBCUT Not Given QIDACHS [facility] Protocol Lidocaine 1 patch 03/10/21 10:45 03/11/21 08:58 Lidocaine 4 % Patch Adh..Patch TRANSDERMA 1 patch DAILY PALOMO Administration Protocol Ondansetron HCl 4 mg 03/03/21 18:00 Ondansetron Hcl 4 Mg/2 Ml Vial IVPUSH Q8H PRN Nausea and Vomiting Oxycodone HCl 5 mg 03/10/21 10:31 03/10/21 21:26 Oxycodone Hcl Immed Release 5 Mg Tablet PO 5 mg Q6H PRN Administration pain, severe Pharmacy Consult 1 each 03/06/21 11:44 Consult Rx Vancomycin Dosing MISCELLANE DAILY PRN Consult order Pharmacy Consult 1 each 03/09/21 16:38 Consult Rx Vancomycin Dosing MISCELLANE DAILY PRN Consult order Polyethylene Glycol 17 gm 03/08/21 11:20 03/11/21 08:58 Polyethylene Glycol 3350 17 Gm Powd.Pack PO 17 gm DAILY PALOMO Administration Pregabalin 25 mg 03/03/21 21:00 03/11/21 08:58 Pregabalin 25 Mg Capsule PO 25 mg BID PALOMO Administration Sodium Chloride 3 ml 03/04/21 00:00 03/11/21 08:58 0.9 % Sodium Chloride Flush 3 Ml Syringe IVFLUSH 3 ml QSHIFT [facility] Administration Labs CBC & Chem 7: 03/11/21 04:20 03/11/21 04:20 Labs: Laboratory Results - last 24 hr 03/10/21 03/10/21 03/10/21 11:34 16:06 20:03 WBC RBC Hgb Hct MCV MCH MCHC RDW Plt Count MPV Absolute Nucleated RBC Nucleated RBC % (auto) Sodium Potassium Chloride Carbon Dioxide Anion Gap BUN Creatinine Estim Creat Clear Calc Estimated GFR POC Glucose 200 H 183 H 172 H Random Glucose Calcium Procalcitonin 07/18/21 07/18/21 07/18/21 04:20 04:20 04:20 WBC 9.0 RBC 2.80 L Hgb 8.2 L Hct 25.7 L MCV 91.8 MCH 29.3 MCHC 31.9 RDW 15.4 Plt Count 294 MPV 11.5 Absolute Nucleated RBC 0.000 Nucleated RBC % (auto) 0.0 Sodium 137 Potassium 4.5 Chloride 99 Carbon Dioxide 25 Anion Gap 18 BUN 82 H* Creatinine 2.91 H Estim Creat Clear Calc 17.2 Estimated GFR 16 POC Glucose Random Glucose 143 H D Calcium 8.4 Procalcitonin 0.66 03/11/21 06:59 WBC RBC Hgb Hct MCV MCH MCHC RDW Plt Count MPV Absolute Nucleated RBC Nucleated RBC % (auto) Sodium Potassium Chloride Carbon Dioxide Anion Gap BUN Creatinine Estim Creat Clear Calc Estimated GFR POC Glucose 131 H Random Glucose Calcium Procalcitonin Quality Stroke Does the patient have a stroke diagnosis?: No VTE Prior VTE?: No VTE Risk Level:: Medical - moderate - high VTE Device Contraindication: N/A - Device Ordered VTE Drug Contraindication: Treatment Not Indicated Assessment and Plan (1) Acute respiratory failure with hypoxia: Status: Acute (2) Acute on chronic diastolic heart failure: Status: Acute (3) Anemia: Status: Acute (4) B12 deficiency: Status: Acute (5) Chronic renal insufficiency: Status: Acute Assessment and Plan: hospital d#9 80yo F with HFpEF presented with worsening STEWART + edema admitted for acute hypoxia from CHF exacerbation found to be bacteremic with MSSA and developed a MRSA abscess at IV puncture site # MSSA bacteremia # MRSA abscess/cellulitis RUE s/p I+D 03/07 - back on vancomycin per ID, total 4 wk from negative culture 03/07/21, end date 04/03/21 - follow vanco trough carefully given renal impairment- due tonight - midline placed 03/09/21 and clotted- will attempt to unclog with alteplase - TTE without evidence IE # acute/chronic HFpEF - euvolemic p diuresing 11L on furosemide gtt, changed to PO bumetanide 2 mg bid for maintenance - TTE 01/09/21 showed low normal LV systolic function with mild LVH with impaired relaxation filling pattern and elevated filling pressures # acute hypoxic RF - supplemental O2, wean as tolerated # acute/chronic anemia - likely multifactorial due to CKD, B12 deficiency [repleted], gastritis s/p recent EGD + C-scope. FOBT negative. responded appropriately to 1u PRBCs transfused # R shoulder/neck pain - prn oxycodone + cyclobenzaprine, lidocaine patch # HTN - continue amlodipine + hydralazine # CKD4 - SCr stable at baseline # DM2 - correction-dose lipsro # DM neuropathy - pregabalin # PVD - continue statin # VTE ppx - SCDs, no heparin due to anemia # dispo - will need STR: pending unclogging PICC and vanco trough
[2021-03-11 11:24] LABS: Glucose, Whole Blood 236 mg/dL (60-115)
[2021-03-11] MEDS: Insulin Lispro 100 UNIT/ML 3 ML VIAL SUBCUT ×2 (12:53→17:33)
[2021-03-11 16:14] LABS: Glucose, Whole Blood 193 mg/dL (60-115)
[2021-03-11] MEDS: Acetaminophen 325 MG TABLET 650 MG PO (16:17)
[2021-03-11 17:53] LABS: Vancomycin Trough 14.4 mcg/mL (10.0-20.0)
[2021-03-11] MEDS: vancomycin HCL 500 MG in 0.9 % Sodium Chloride 100 ML 110 MG IV (17:58)
[2021-03-11 20:18] LABS: Glucose, Whole Blood 130 mg/dL (60-115)
[2021-03-11] MEDS: oxyCODONE HCl Immed Release 5 MG TABLET PO (21:15)
[2021-03-12] VITALS (11 sets, daily range): BP systolic 151–173; BP diastolic 56–74; PULSE 76–101; RESP 16–20; TEMP 36.4–37.6; O2SAT 91–95; BMI 34.6
[2021-03-12 07:22] LABS: Glucose, Whole Blood 104 mg/dL (60-115)
[2021-03-12 07:45] LABS: Anion Gap 16 (12-20); Calcium 8.5 mg/dL (8.4-10.2); Carbon Dioxide 25 mmol/L (22-29); Chloride 100 mmol/L (96-108); Creatinine Clr Calc Pharmacy 18.2; Estimated Glomerular Filt Rate 16; Glucose Random 96 mg/dL (60-115); Potassium 4.3 mmol/L (3.3-5.1); Sodium 137 mmol/L (135-145)
[2021-03-12 08:19] LABS: Blood Urea Nitrogen 83 mg/dL (9-16)
[2021-03-12] MEDS: Cyanocobalamin (Vitamin B-12) 1,000 MCG TABLET 1000 MCG PO (09:47)
[2021-03-12] MEDS: Pregabalin 25 MG CAPSULE PO ×2 (09:47→20:55)
[2021-03-12] MEDS: Lidocaine 4 % Patch ADH..PATCH 1 PATCH TRANSDERMA (09:47)
[2021-03-12] MEDS: Bumetanide 1 MG TABLET 2 MG PO ×2 (09:47→16:49)
[2021-03-12] MEDS: Atorvastatin Calcium 40 MG TABLET PO (09:47)
[2021-03-12] MEDS: polyethylene glycoL 3350 17 GM POWD.PACK PO (09:47)
[2021-03-12] MEDS: hydrALAZINE HCl 50 MG TABLET 100 MG PO ×3 (09:47→20:55)
[2021-03-12] MEDS: amLODIPine Besylate 10 MG TABLET PO (09:48)
[2021-03-12] MEDS: 0.9 % Sodium Chloride Flush 3 ML SYRINGE IVFLUSH ×3 (09:48→22:37)
[2021-03-12] MEDS: oxyCODONE HCl Immed Release 5 MG TABLET PO (09:52)
[2021-03-12] MEDS: Heparin Sodium,Porcine Flush 50 UNITS, 0.9 % Sodium Chloride Flush 5 ML IVFLUSH ×3 (10:03→20:56)
[2021-03-12 11:20] LABS: Glucose, Whole Blood 154 mg/dL (60-115)
--- NOTE | 2021-03-12 11:21 | MHC.CLN ---
F/U PT WITH INCREASED NUTRITION R/T PRESSURE INJURY PO INTAKE 75% AVG DIET RX: 2200DM 2GM NA -APPROPRIATE PT RECEIVING GLUCERNA BID AND TITO TO [employer] SUPPLEMENT PROVIDES 634KCALS, 25G PROTEIN CONTINUE TO MONITOR PO INTAKE AND ACCEPTANCE OF SUPPLEMENTS
[2021-03-12] MEDS: Insulin Lispro 100 UNIT/ML 3 ML VIAL SUBCUT ×3 (11:42→20:54)
--- NOTE | 2021-03-12 12:04 | PM.IMPN ---
Subjective Subjective Date of Service: 03/12/21 <Judit Gagnon NP - Last Filed: 03/12/21 12:35> 03/13/21 <Dorian Lucas MD - Last Filed: 03/13/21 16:12> Interval History: Follow up bacteremia MSSA, MRSA Feeling good. appetite good no feber today <Judit Gagnon NP - Last Filed: 03/12/21 12:35> Physical Exam Vital Signs: Vital Signs: Last Vital Signs Temp 98.5 F 03/12/21 10:51 Pulse 91 03/12/21 11:33 Resp 16 03/12/21 10:51 BP 161/67 H 03/12/21 11:33 Pulse Ox 94 03/12/21 11:33 Oxygen Flow Rate 5 03/05/21 20:30 Body Mass Index 34.6 <Judit Gagnon NP - Last Filed: 03/12/21 12:35> Appearing in no acute distress Midline right arm lung sounds are clear to auscultation heart regular rate rhythm, clear S1, S2 positive bowel sounds, abdomen is soft, nontender neuro patient is alert x3, no focal deficits <Judit Gagnon NP - Last Filed: 03/12/21 12:35> Objective Data Current Medications Generic Name Dose Route Start Last Admin Trade Name Blayne PRN Reason Stop Dose Admin Acetaminophen 650 mg 03/03/21 18:00 03/11/21 16:17 Acetaminophen 325 Mg Tablet PO 650 mg Q6H PRN Administration Pain, Mild (Pain Scale 1-3) Amlodipine Besylate 10 mg 03/04/21 09:00 03/12/21 09:48 Amlodipine Besylate 10 Mg Tablet PO 10 mg DAILY PALOMO Administration Protocol Atorvastatin Calcium 40 mg 03/04/21 09:00 03/12/21 09:47 Atorvastatin Calcium 40 Mg Tablet PO 40 mg DAILY PALOMO Administration Bumetanide 2 mg 03/09/21 17:00 03/12/21 09:47 Bumetanide 1 Mg Tablet PO 2 mg BID@0800,1700 PALOMO Administration Protocol Heparin Sodium (Porcine) 50 0 units 03/09/21 22:00 03/12/21 10:03 units/ Sodium Chloride 5 ml IVFLUSH 50 unit TID PALOMO Administration Cyanocobalamin 1,000 mcg 03/04/21 09:00 03/12/21 09:47 Cyanocobalamin (Vitamin B-12) 1,000 Mcg Tablet PO 1,000 mcg DAILY PALOMO Administration Cyclobenzaprine HCl 5 mg 03/10/21 10:31 03/10/21 11:02 Cyclobenzaprine Hcl 5 Mg Tablet PO 5 mg TID PRN Administration neck muscle spasm/pain Hydralazine HCl 100 mg 03/03/21 21:00 03/12/21 09:47 Hydralazine Hcl 50 Mg Tablet PO 100 mg TID PALOMO Administration Protocol Vancomycin HCl 500 mg/ Sodium 110 mls @ 110 mls/hr 03/09/21 18:00 03/11/21 20:19 Chloride IV Infused Q24H [facility]O Infusion Insulin Human Lispro 0 unit 03/03/21 21:00 03/12/21 11:42 Insulin Lispro 100 Unit/Ml 3 Ml Vial SUBCUT 2 unit QIDACHS [facility] Administration Protocol Lidocaine 1 patch 03/10/21 10:45 03/12/21 09:47 Lidocaine 4 % Patch Adh..Patch TRANSDERMA 1 patch DAILY [facility]OMO Administration Protocol Ondansetron HCl 4 mg 03/03/21 18:00 Ondansetron Hcl 4 Mg/2 Ml Vial IVPUSH Q8H PRN Nausea and Vomiting Oxycodone HCl 5 mg 03/10/21 10:31 03/12/21 09:52 Oxycodone Hcl Immed Release 5 Mg Tablet PO 5 mg Q6H PRN Administration pain, severe Pharmacy Consult 1 each 03/06/21 11:44 Consult Rx Vancomycin Dosing MISCELLANE DAILY PRN Consult order Pharmacy Consult 1 each 03/09/21 16:38 Consult Rx Vancomycin Dosing MISCELLANE DAILY PRN Consult order Polyethylene Glycol 17 gm 03/08/21 11:20 03/12/21 09:47 Polyethylene Glycol 3350 17 Gm Powd.Pack PO 17 gm DAILY PALOMO Administration Pregabalin 25 mg 03/03/21 21:00 03/12/21 09:47 Pregabalin 25 Mg Capsule PO 25 mg BID PALOMO Administration Sodium Chloride 3 ml 03/04/21 00:00 03/12/21 09:48 0.9 % Sodium Chloride Flush 3 Ml Syringe IVFLUSH 3 ml QSHIFT PALOMO Administration <Judit Gagnon NP - Last Filed: 03/12/21 12:35> Labs CBC & Chem 7: : 03/11/21 04:20 03/13/21 05:51 <Judit Gagnon NP - Last Filed: 03/12/21 12:35> Labs: Laboratory Results - last 24 hr 03/11/21 03/11/21 03/11/21 16:07 17:02 20:12 Anion Gap Estim Creat Clear Calc Estimated GFR POC Glucose 193 H 130 H Random Glucose Calcium Vancomycin Trough 14.4 03/12/21 03/12/21 03/12/21 05:44 07:15 11:16 Anion Gap 16 Estim Creat Clear Calc 18.2 Estimated GFR 16 POC Glucose 104 154 H Random Glucose 96 Calcium 8.5 Vancomycin Trough <Judit Gagnon NP - Last Filed: 03/12/21 12:35> Microbiology Microbiology Results: Microbiology 03/07/21 06:01 Blood - Venous Blood Culture - Final No growth after 5 days. 03/07/21 06:01 Blood - Venous Blood Culture - Final No growth after 5 days. 03/07/21 15:26 Arm Right Gram Stain - Final 03/07/21 15:26 Arm Right Routine Culture - Final Methicillin Res Staph Aureus 03/05/21 20:52 Blood - Venous Blood Culture - Final Staphylococcus aureus 03/05/21 20:52 Blood - Venous Blood Culture - Final Staphylococcus aureus 03/05/21 Unknown Urine Catheterized - Vera Catheter Urine Culture - Final <Judit Gagnon NP - Last Filed: 03/12/21 12:35> Progress Note: A&P (1) Gram-positive bacteremia: Status: Acute <Judit Gagnon NP - Last Filed: 03/12/21 12:35> Assessment and Plan: 80yo F with HFpEF presented with worsening STEWART + edema admitted for acute hypoxia from CHF exacerbation found to be bacteremic with MSSA and developed a MRSA abscess at IV puncture site # MSSA bacteremia # MRSA abscess/cellulitis RUE s/p I+D 03/07 - back on vancomycin per ID, total 4 wk from negative culture 03/07/21, end date 04/03/21 - follow vanco trough carefully given renal impairment- due tonight - midline placed 03/09/21 and clotted, now patent - TTE without evidence IE # acute/chronic HFpEF - euvolemic p diuresing 11L on furosemide gtt, changed to PO bumetanide 2 mg bid for maintenance - TTE 01/09/21 showed low normal LV systolic function with mild LVH with impaired relaxation filling pattern and elevated filling pressures # acute hypoxic RF - supplemental O2, wean as tolerated # acute/chronic anemia - likely multifactorial due to CKD, B12 deficiency [repleted], gastritis s/p recent EGD + C-scope. FOBT negative. responded appropriately to 1u PRBCs transfused # R shoulder/neck pain - prn oxycodone + cyclobenzaprine, lidocaine patch # HTN - continue amlodipine + hydralazine # CKD4 - SCr stable at baseline # DM2 - correction-dose lipsro # DM neuropathy - pregabalin # PVD - continue statin # VTE ppx - SCDs, no heparin due to anemia # dispo - will need STR: pending cx Attending Dr. Lucas <Judit Gagnon NP - Last Filed: 03/12/21 12:35> Quality Stroke Does the patient have a stroke diagnosis?: No <Judit Gagnon NP - Last Filed: 03/12/21 12:35> VTE Prior VTE?: No <Judit Gagnon NP - Last Filed: 03/12/21 12:35> VTE Risk Level:: Medical - moderate - high <Judit Gagnon NP - Last Filed: 03/12/21 12:35> VTE Device Contraindication: N/A - Device Ordered <Judit Gagnon NP - Last Filed: 03/12/21 12:35> VTE Drug Contraindication: Treatment Not Indicated <Judit Gagnon NP - Last Filed: 03/12/21 12:35>
[2021-03-12] MEDS: Lidocaine 4 % Patch ADH..PATCH 2 PATCH TRANSDERMA (13:45)
--- NOTE | 2021-03-12 15:17 | MHC.CM.PN ---
per rounds dc plan is tbd pt may require 4 weeks iv antibiotics pt also to have a pt eval
[2021-03-12 16:13] LABS: Glucose, Whole Blood 200 mg/dL (60-115)
[2021-03-12] MEDS: vancomycin HCL 500 MG in 0.9 % Sodium Chloride 100 ML 110 MG IV (18:37)
[2021-03-12] MEDS: Cyclobenzaprine HCl 5 MG TABLET PO (20:56)
[2021-03-12 20:58] LABS: Glucose, Whole Blood 232 mg/dL (60-115)
[2021-03-13] VITALS (11 sets, daily range): BP systolic 151–169; BP diastolic 61–72; PULSE 90–101; RESP 16–21; TEMP 36.3–37.8; O2SAT 91–96; BMI 34.1
[2021-03-13 07:23] LABS: Glucose, Whole Blood 139 mg/dL (60-115)
[2021-03-13 07:49] LABS: Anion Gap 16 (12-20); Calcium 8.6 mg/dL (8.4-10.2); Carbon Dioxide 25 mmol/L (22-29); Chloride 98 mmol/L (96-108); Creatinine Clr Calc Pharmacy 18.1; Estimated Glomerular Filt Rate 16; Glucose Random 136 mg/dL (60-115); Potassium 4.2 mmol/L (3.3-5.1)
[2021-03-13 08:31] LABS: Blood Urea Nitrogen 91 mg/dL (9-16); Sodium 135 mmol/L (135-145)
[2021-03-13] MEDS: Pregabalin 25 MG CAPSULE PO (09:44)
[2021-03-13] MEDS: amLODIPine Besylate 10 MG TABLET PO (09:44)
[2021-03-13] MEDS: Bumetanide 1 MG TABLET 2 MG PO ×2 (09:44→16:38)
[2021-03-13] MEDS: Lidocaine 4 % Patch ADH..PATCH 1 PATCH TRANSDERMA (09:45)
[2021-03-13] MEDS: Atorvastatin Calcium 40 MG TABLET PO (09:45)
[2021-03-13] MEDS: Heparin Sodium,Porcine Flush 50 UNITS, 0.9 % Sodium Chloride Flush 5 ML IVFLUSH ×3 (09:45→22:09)
[2021-03-13] MEDS: Cyanocobalamin (Vitamin B-12) 1,000 MCG TABLET 1000 MCG PO (09:45)
[2021-03-13] MEDS: hydrALAZINE HCl 50 MG TABLET 100 MG PO ×3 (09:45→22:16)
[2021-03-13] MEDS: polyethylene glycoL 3350 17 GM POWD.PACK PO (09:46)
[2021-03-13] MEDS: 0.9 % Sodium Chloride Flush 3 ML SYRINGE IVFLUSH ×2 (09:46→16:39)
[2021-03-13] MEDS: Lidocaine 4 % Patch ADH..PATCH 2 PATCH TRANSDERMA (09:46)
--- NOTE | 2021-03-13 10:58 | PC.NURSE ---
Skin/Wound assessment completed today. Patient has Stage 2 pressure ulcer on coccyx/left buttocks with blanchable redness to buttocks. Triad applied to pressure ulcer covered with foam. Also, Triad to redness on buttocks. All wounds present on admission.
[2021-03-13 11:22] LABS: Glucose, Whole Blood 207 mg/dL (60-115)
[2021-03-13] MEDS: Insulin Lispro 100 UNIT/ML 3 ML VIAL SUBCUT (11:53)
[2021-03-13] MEDS: oxyCODONE HCl Immed Release 5 MG TABLET PO (11:54)
[2021-03-13] MEDS: Acetaminophen 325 MG TABLET 650 MG PO (11:54)
--- NOTE | 2021-03-13 13:05 | MHC.CM.PN ---
spoke with staff at bedside who explains that pt has 24/7 c are at [facility] and that he goes to a day program at [place] [facility] in [place] daily he is ambulatory at baseline plan is for [facility] to return [facility] when dcd
--- NOTE | 2021-03-13 13:44 | P.PNIM_ITS ---
Subjective Subjective Date of Service: 03/13/21 Interval History: Follow up bacteremia MSSA, MRSA Pain to her shoulders and knees appetite good Physical Exam Vital Signs: Vital Signs: Last Vital Signs Temp 99.1 F 03/13/21 11:43 Pulse 101 H 03/13/21 11:43 Resp 21 H 03/13/21 11:43 BP 158/66 H 03/13/21 11:43 Pulse Ox 94 03/13/21 11:43 Oxygen Flow Rate 5 03/05/21 20:30 Body Mass Index 34.1 Appearing in no acute distress lung sounds are clear to auscultation heart regular rate rhythm, clear S1, S2 positive bowel sounds, abdomen is soft, nontender neuro patient is alert x3, no focal deficits Objective Data Current Medications Generic Name Dose Route Start Last Admin Trade Name Freq PRN Reason Stop Dose Admin Acetaminophen 650 mg 03/03/21 18:00 03/13/21 11:54 Acetaminophen 325 Mg Tablet PO 650 mg Q6H PRN Administration Pain, Mild (Pain Scale 1-3) Amlodipine Besylate 10 mg 03/04/21 09:00 03/13/21 09:44 Amlodipine Besylate 10 Mg Tablet PO 10 mg DAILY [facility]O Administration Protocol Atorvastatin Calcium 40 mg 03/04/21 09:00 03/13/21 09:45 Atorvastatin Calcium 40 Mg Tablet PO 40 mg DAILY [facility] Administration Bumetanide 2 mg 03/09/21 17:00 03/13/21 09:44 Bumetanide 1 Mg Tablet PO 2 mg BID@0800,1700 [facility] Administration Protocol Heparin Sodium (Porcine) 50 0 units 03/09/21 22:00 03/13/21 09:45 units/ Sodium Chloride 5 ml IVFLUSH 50 unit TID [facility]OMO Administration Cyanocobalamin 1,000 mcg 03/04/21 09:00 03/13/21 09:45 Cyanocobalamin (Vitamin B-12) 1,000 Mcg Tablet PO 1,000 mcg DAILY [facility] Administration Cyclobenzaprine HCl 5 mg 03/10/21 10:31 03/12/21 20:56 Cyclobenzaprine Hcl 5 Mg Tablet PO 5 mg TID PRN Administration neck muscle spasm/pain Hydralazine HCl 100 mg 03/03/21 21:00 03/13/21 09:45 Hydralazine Hcl 50 Mg Tablet PO 100 mg TID PALOMO Administration Protocol Vancomycin HCl 500 mg/ Sodium 110 mls @ 110 mls/hr 03/09/21 18:00 03/12/21 20:17 Chloride IV Infused Q24H [facility] Infusion Insulin Human Lispro 0 unit 03/03/21 21:00 03/13/21 11:53 Insulin Lispro 100 Unit/Ml 3 Ml Vial SUBCUT 4 unit QIDACHS [facility] Administration Protocol Lidocaine 1 patch 03/10/21 10:45 03/13/21 09:45 Lidocaine 4 % Patch Adh..Patch TRANSDERMA 1 patch DAILY [facility] Administration Protocol Lidocaine 2 patch 03/12/21 12:45 03/13/21 09:46 Lidocaine 4 % Patch Adh..Patch TRANSDERMA 2 patch DAILY [facility] Administration Protocol Ondansetron HCl 4 mg 03/03/21 18:00 Ondansetron Hcl 4 Mg/2 Ml Vial IVPUSH Q8H PRN Nausea and Vomiting Oxycodone HCl 5 mg 03/10/21 10:31 03/13/21 11:54 Oxycodone Hcl Immed Release 5 Mg Tablet PO 5 mg Q6H PRN Administration pain, severe Pharmacy Consult 1 each 03/09/21 16:38 Consult Rx Vancomycin Dosing MISCELLANE DAILY PRN Consult order Polyethylene Glycol 17 gm 03/08/21 11:20 03/13/21 09:46 Polyethylene Glycol 3350 17 Gm Powd.Pack PO 17 gm DAILY [facility] Administration Pregabalin 25 mg 03/03/21 21:00 03/13/21 09:44 Pregabalin 25 Mg Capsule PO 25 mg BID [facility] Administration Sodium Chloride 3 ml 03/04/21 00:00 03/13/21 09:46 0.9 % Sodium Chloride Flush 3 Ml Syringe IVFLUSH 3 ml QSHIFT [facility] Administration Labs CBC & Chem 7: 03/11/21 04:20 03/13/21 05:51 Labs: Laboratory Results - last 24 hr 03/12/21 03/12/21 03/13/21 16:01 20:15 05:51 Anion Gap 16 Estim Creat Clear Calc 18.1 Estimated GFR 16 POC Glucose 200 H 232 H Random Glucose 136 H D Calcium 8.6 03/13/21 03/13/21 07:17 11:16 Anion Gap Estim Creat Clear Calc Estimated GFR POC Glucose 139 H 207 H Random Glucose Calcium Microbiology Microbiology Results: Microbiology 03/11/21 19:44 Blood - Venous Blood Culture - Preliminary No growth after 24 hours. 03/11/21 19:44 Blood - Venous Blood Culture - Preliminary No growth after 24 hours. 03/07/21 06:01 Blood - Venous Blood Culture - Final No growth after 5 days. 03/07/21 06:01 Blood - Venous Blood Culture - Final No growth after 5 days. 03/07/21 15:26 Arm Right Gram Stain - Final 03/07/21 15:26 Arm Right Routine Culture - Final Methicillin Res Staph Aureus 03/05/21 20:52 Blood - Venous Blood Culture - Final Staphylococcus aureus 03/05/21 20:52 Blood - Venous Blood Culture - Final Staphylococcus aureus 03/05/21 Unknown Urine Catheterized - Vera Catheter Urine Culture - Final Progress Note: A&P (1) Gram-positive bacteremia: Status: Acute Assessment and Plan: 80yo F with HFpEF presented with worsening STEWART + edema admitted for acute hypoxia from CHF exacerbation found to be bacteremic with MSSA and developed a MRSA abscess at IV puncture site # MSSA bacteremia # MRSA abscess/cellulitis RUE s/p I+D 03/07 - back on vancomycin per ID, total 4 wk from negative culture 03/07/21, end date 04/03/21 - follow vanco trough carefully given renal impairment- due tonight - midline placed 03/09/21 and clotted, now patent but should be assessed by IR d/t difficulty flushing - TTE without evidence IE # acute/chronic HFpEF - euvolemic p diuresing 11L on furosemide gtt, changed to PO bumetanide 2 mg bid for maintenance - TTE 01/09/21 showed low normal LV systolic function with mild LVH with impaired relaxation filling pattern and elevated filling pressures # acute hypoxic RF - supplemental O2, wean as tolerated # acute/chronic anemia - likely multifactorial due to CKD, B12 deficiency [repleted], gastritis s/p recent EGD + C-scope. FOBT negative. responded appropriately to 1u PRBCs transfused # R shoulder/neck pain - prn oxycodone + cyclobenzaprine, lidocaine patch # HTN - continue amlodipine + hydralazine # CKD4 - SCr stable at baseline # DM2 - correction-dose lipsro # DM neuropathy - pregabalin # PVD - continue statin # VTE ppx - SCDs, no heparin due to anemia # dispo. will need STR Attending Dr. Carlton Full code Quality Stroke Does the patient have a stroke diagnosis?: No VTE Prior VTE?: No VTE Risk Level:: Medical - moderate - high VTE Device Contraindication: N/A - Device Ordered VTE Drug Contraindication: Treatment Not Indicated
[2021-03-13 14:37] LABS: COVID-19 Test Negative (Negative); IDNOW Serial# 9DD0AD1C
[2021-03-13 16:25] LABS: Glucose, Whole Blood 155 mg/dL (60-115)
[2021-03-13] MEDS: vancomycin HCL 500 MG in 0.9 % Sodium Chloride 100 ML 110 MG IV (18:12)
[2021-03-13 20:20] LABS: Glucose, Whole Blood 156 mg/dL (60-115)
[2021-03-14] VITALS (7 sets, daily range): BP systolic 148–174; BP diastolic 63–69; PULSE 80–102; RESP 19–20; TEMP 36.6–37.5; O2SAT 92–98; BMI 34.0
[2021-03-14 07:05] LABS: Anion Gap 17 (12-20); Blood Urea Nitrogen 91 mg/dL (9-16); Calcium 8.4 mg/dL (8.4-10.2); Carbon Dioxide 25 mmol/L (22-29); Chloride 98 mmol/L (96-108); Creatinine Clr Calc Pharmacy 17.8; Estimated Glomerular Filt Rate 16; Glucose Random 109 mg/dL (60-115); Potassium 4.1 mmol/L (3.3-5.1); Sodium 136 mmol/L (135-145)
[2021-03-14 07:08] LABS: B Type Natriuretic Peptide 366 pg/mL (<100)
[2021-03-14 07:18] LABS: Glucose, Whole Blood 103 mg/dL (60-115)
[2021-03-14] MEDS: Bumetanide 1 MG TABLET 2 MG PO (09:27)
[2021-03-14] MEDS: polyethylene glycoL 3350 17 GM POWD.PACK PO (09:27)
[2021-03-14] MEDS: Cyanocobalamin (Vitamin B-12) 1,000 MCG TABLET 1000 MCG PO (09:27)
[2021-03-14] MEDS: Atorvastatin Calcium 40 MG TABLET PO (09:29)
[2021-03-14] MEDS: amLODIPine Besylate 10 MG TABLET PO (09:30)
[2021-03-14] MEDS: hydrALAZINE HCl 50 MG TABLET 100 MG PO (09:31)
[2021-03-14] MEDS: oxyCODONE HCl Immed Release 5 MG TABLET PO (09:31)
[2021-03-14] MEDS: Heparin Sodium,Porcine Flush 50 UNITS, 0.9 % Sodium Chloride Flush 5 ML IVFLUSH (09:32)
--- NOTE | 2021-03-14 11:30 | MHC.CLN ---
PO INTAKE NOW VARIABLE DIET RX: 2200DM 2GM NA -APPROPRIATE PT RECEIVING GLUCERNA BID AND TITO TO PROMOTE WOUND HEALING SUPPLEMENT PROVIDES 634KCALS (31% EST KCAL NEEDS), 25G PROTEIN (30% EST PROTEIN NEEDS) CONTINUE TO MONITOR PO INTAKE AND ACCEPTANCE OF SUPPLEMENTS
[2021-03-14 11:56] LABS: Glucose, Whole Blood 198 mg/dL (60-115)
--- NOTE | 2021-03-14 11:57 | PC.NURSE ---
RUE MIDLINE ASSESSED BY THIS RN. DRESSING APPEARS INTACT ALONG WITH INTACT TUBING AND CLAVE. PT DENIES ANY PAIN R/T MIDLINE SITE. MIDLINE FLUSHED WITH SALINE FLUSH; ABLE TO FLUSH EASILY. ALSO ABLE TO ASPIRATE VENOUS BLOOD EASILY. MIDLINE FUNCTIONING WELL.
[2021-03-14] MEDS: Insulin Lispro 100 UNIT/ML 3 ML VIAL SUBCUT (12:29)
--- NOTE | 2021-03-14 12:46 | MHC.CM.PN ---
pt will be dcd today to [facility] notified dc time is 3;00 also requested to bring vaccination card to facility
--- NOTE | 2021-03-14 12:55 | P.DS_ITS ---
DS: Providers Provider Date of Service: 03/14/21 Date of admission: 03/03/21 18:01 Primary care physician: Kay Mata MD Consults: 03/06/21 11:44 Consult to Infectious Diseases Routine Consulting Provider: Caroline Carrion Reason for consultation: GPC bacteremia 03/07/21 14:19 Consult to General Surgery Routine Consulting Provider[place] [facility] Reason for consultation: R AC fossa abscess- please I+D DS: Diagnosis Discharge Diagnosis (1) Acute on chronic diastolic heart failure: Status: Acute (2) Acute respiratory failure with hypoxia: Status: Acute (3) MSSA bacteremia: Status: Acute (4) MRSA cellulitis: Status: Acute DS: Medications Discharge Medications Home Medications: Home Medications Medication Instructions Recorded Confirmed amlodipine 10 mg PO DAILY 01/07/21 03/03/21 atorvastatin 40 mg PO DAILY 01/07/21 03/03/21 multivitamin with folic acid 400 1 tab PO DAILY 03/02/21 03/03/21 mcg tablet Previous Rx's Medication Instructions Recorded miscellaneous medical supply #1 ea 10/17/20 miscellaneous medical supply #1 ea 12/26/20 cyanocobalamin (vitamin B-12) 1,000 mcg PO DAILY #0 tab 01/17/21 [Vitamin B-12] hydralazine 100 mg PO TID #0 tab 01/17/21 pregabalin [Lyrica] 25 mg PO BID #0 cap 01/17/21 bumetanide 2 mg PO BID@0800,1700 #120 tab 03/14/21 insulin lispro [Humalog U-100 See Protocol SUBCUT QIDACHS #10 ml 03/14/21 Insulin] polyethylene glycol 3350 17 g PO DAILY #30 ea 03/14/21 vancomycin 500 mg PO Q24H 24 Days ea 03/14/21 DS: Summary Hospital Course Hospital Course: Patient presented to the hospital in acute on chronic diastolic heart failure resulting in acute respiratory failure with hypoxia. Treated with IV diuresis (negative -13L) with resolution of her CHF and respiratory failure. She was positioned to oral Bumex which she was on at home. Her dose will be increased from 1 mg daily to 2 mg twice daily. Hospital course was further complicated by peripheral IV infiltration resulting in cellulitis/abscess and resultant bacteremia. She grew MRSA from her abscess culture and MSSA in the blood. She will need 4 weeks of IV vancomycin 500 mg daily. End date is 04/08/2021. She should have weekly chemistries as well as vancomycin trough with a goal of 15-20. In regards to the patient's diabetes, she was treated with insulin sliding scale. given her diagnosis of heart failure this is been discontinued at the time of discharge. She can use mealtime insulin as needed. Time Spent with Patient Time attestation: Total time spent providing and/or coordinating discharge services: Discharge coordination time: Greater than 30 minutes Quality: Stroke Does the patient have a stroke diagnosis?: No Physical Exam Vital Signs: Vital Signs: Last Vital Signs Temp 98.7 F 03/14/21 12:00 Pulse 98 03/14/21 12:00 Resp 19 03/14/21 12:00 BP 174/69 H 03/14/21 12:00 Pulse Ox 92 03/14/21 12:00 Oxygen Flow Rate 5 03/05/21 20:30 Body Mass Index 34.0 Const: Other: Gen: NAD HEENT: sclera anicteric, moist mucus membranes Neck: supple Lungs: diminished bilaterally Heart: regular rate and rhythm, no murmurs Abd: soft, non-tender, non-distended Ext: trace pitting edema bilateral legs Skin: warm/well-perfused, R AC fossa with drained abscess site- erythema resolved; R upper arm with midline catheter Neuro: alert and oriented x3, no focal findings Psych: appropriate affect DS: Data Data Completed and Pending Completed studies during hospitalization [Text1]: Procedures Excision of Ascending Colon, Via Natural or Artificial Opening Endoscopic, Diagnostic (01/07/21) Excision of Duodenum, Via Natural or Artificial Opening Endoscopic, Diagnostic (01/07/21) Excision of Stomach, Pylorus, Via Natural or Artificial Opening Endoscopic, Diagnostic (01/07/21) Transfusion of Nonautologous Red Blood Cells into Peripheral Vein, Percutaneous Approach (01/07/21) Labs on day of discharge: Laboratory Results - last 24 hr 03/13/21 03/13/21 03/13/21 14:09 16:14 20:12 Sodium Potassium Chloride Carbon Dioxide Anion Gap BUN Creatinine Estim Creat Clear Calc Estimated GFR POC Glucose 155 H 156 H Random Glucose Calcium B-Natriuretic Peptide COVID-19 (ROBBIE) Negative COVID-19 Clin Com See Note 03/14/21 03/14/21 03/14/21 05:26 05:26 07:12 Sodium 136 Potassium 4.1 Chloride 98 Carbon Dioxide 25 Anion Gap 17 BUN 91 H* Creatinine 2.84 H Estim Creat Clear Calc 17.8 Estimated GFR 16 POC Glucose 103 Random Glucose 109 Calcium 8.4 B-Natriuretic Peptide 366 H COVID-19 (ROBBIE) COVID-19 Clin Com 03/14/21 11:50 Sodium Potassium Chloride Carbon Dioxide Anion Gap BUN Creatinine Estim Creat Clear Calc Estimated GFR POC Glucose 198 H Random Glucose Calcium B-Natriuretic Peptide COVID-19 (ROBBIE) COVID-19 Clin Com Preliminary micro results at discharge 03/11/21 19:44 Blood Culture - Preliminary Blood - Venous No growth after 48 hours. 03/11/21 19:44 Blood Culture - Preliminary Blood - Venous No growth after 48 hours. Discharge Plan Discharge Patient Disposition: [facility] Discharge Diagnosis: CHF, MRSA bacteremia Referrals: Angely ALMAZAN [Other] - 1 Week Kay Chávez MD [Primary Care Provider] - 1 Week Discharge Medications: New polyethylene glycol 3350 17 gram Powder In Packet 17 g PO DAILY Qty: 30 RF: 0 bumetanide 1 mg Tablet 2 mg PO BID@0800,1700 Qty: 120 RF: 0 insulin lispro [Humalog U-100 Insulin] 100 unit/mL Solution See Protocol unit subcut QIDACHS Qty: 10 RF: 0 vancomycin 500 mg recon soln 500 mg PO Q24H 24 Days RF: 0 Continued (DME) miscellaneous medical supply Misc See Rx Instructions .MEDSUPPLY Qty: 1 RF: 0 multivitamin with folic acid 400 mcg tablet 1 tab PO DAILY RF: 0 atorvastatin 40 mg Tablet 40 mg PO DAILY RF: 0 amlodipine 10 mg Tablet 10 mg PO DAILY RF: 0 hydralazine 50 mg Tablet 100 mg PO TID Qty: 0 RF: 0 pregabalin [Lyrica] 25 mg Capsule 25 mg PO BID Qty: 0 RF: 0 cyanocobalamin (vitamin B-12) [Vitamin B-12] 1,000 mcg Tablet 1,000 mcg PO DAILY Qty: 0 RF: 0 (DME) miscellaneous medical supply Misc See Rx Instructions .MEDSUPPLY Qty: 1 RF: 0 Discontinued Januvia 25 mg tablet 1 tab PO DAILY RF: 0 bumetanide 1 mg tablet 1 mg PO DAILY RF: 0 Discharge Orders: Discharge Order (Routine); Ordered 03/14/21 Ordered By: Dorian Lucas Diet: advance to usual diet and diabetic diet Activity on Discharge: As tolerated Stand Alone Forms: Patient Portal Discharge page Care Plan Goals: To stay healthy and out of the hospital. Health Concerns: CHF Bacteremia Plan of Treatment: Increase your bumex from 1mg daily to 2mg BID Take Vancomcyin until 04/08/21 Assessment: 80-year-old presented with acute heart failure and was diuresed. Had MRSA bacteremia from infiltrated IV and cellulitis. Will be treated with 4 weeks IV vancomycin per
== END 2021-03-14 15:45 | disposition skilled nursing facility (03) | DRG 987 ==
LOC: HO.ED 14:57 → HO.EDOVER 18:24 → HO.IMC 19:37
PROVIDERS: Family Medicine; Internal Medicine; Nurse Practitioner Acute Care; Admitting Provider Hospitalist; Emergency Provider Emergency Medicine; PCP Internal Medicine; Visit Provider Family Medicine
DX: I13.0 Hypertensive heart and chronic kidney disease with heart failure and stage 1 through stage 4 chronic kidney disease, or unspecified chronic kidney disease (principal); J96.01 Acute respiratory failure with hypoxia; I50.23 Acute on chronic systolic (congestive) heart failure; N18.4 Chronic kidney disease, stage 4 (severe); L02.413 Cutaneous abscess of right upper limb; L03.113 Cellulitis of right upper limb; R78.81 Bacteremia; E53.8 Deficiency of other specified B group vitamins; D63.1 Anemia in chronic kidney disease; E11.42 Type 2 diabetes mellitus with diabetic polyneuropathy; B95.62 Methicillin resistant Staphylococcus aureus infection as the cause of diseases classified elsewhere; M54.2 Cervicalgia; B95.61 Methicillin susceptible Staphylococcus aureus infection as the cause of diseases classified elsewhere; E11.51 Type 2 diabetes mellitus with diabetic peripheral angiopathy without gangrene; D47.2 Monoclonal gammopathy; E11.22 Type 2 diabetes mellitus with diabetic chronic kidney disease; Z20.822 Contact with and (suspected) exposure to COVID-19; Z79.4 Long term (current) use of insulin; Z79.899 Other long term (current) drug therapy
CPT/HCPCS: 36410; 36415; 71045; 71046; 76882; 80048; 80076; 80202; 81001; 82272; 82947; 83605; 83735; 83880; 84145; 84484; 85025; 85027; 86850; 86900; 86901; 86923; 87040; 87071; 87077; 87086; 87147; 87186; 87205; 87635; 93005; 93306; 94799; 97110; 97162; 99285; J0690; J0696; J0885; J1642; J1940; J2270; J2997; J3370; J3475; P9016

== ENCOUNTER 2021-04-13 16:50 | Inpatient (IN) | payer MEDICARE, SELFPAY ==
--- NOTE | ~2021-04-13 | US_ITS ---
EXAMINATION: US EXTRACRANIAL CAROTID DUPLEX, BILATERAL CLINICAL INFORMATION: Transient ischemic attack COMPARISON: None TECHNIQUE: Real-time ultrasound and Doppler techniques (integrating B-mode 2-D vascular images, Doppler spectral analysis and color-flow Doppler imaging) were utilized to interrogate the extracranial carotid arteries, the vertebral arteries and proximal subclavian arteries bilaterally. The degree of stenosis is determined by criteria similar to NASCET. FINDINGS: Right Side: 1. There is soft atherosclerotic plaque seen in the bifurcation/proximal ICA region. 2. The common carotid artery PSV proximally is 114 cm/s and distally 107 cm/s. 3. The proximal internal carotid artery velocities are 131 cm/s systolic and 35 cm/s diastolic. 4. The proximal external carotid artery PSV is 122 cm/s. 5. The vertebral artery shows antegrade flow. 6. The subclavian artery waveforms are triphasic. Left Side: 1. There is soft atherosclerotic plaque seen in the bifurcation/proximal ICA region. 2. The common carotid artery PSV proximally is 84 cm/s and distally 103 cm/s. 3. The proximal internal carotid artery velocities are 102 cm/s systolic and 24 cm/s diastolic. 4. The proximal external carotid artery PSV is 95 cm/s. 5. The vertebral artery shows antegrade flow. 6. The subclavian artery waveforms are triphasic. US/US carotid duplex BI IMPRESSION: 1. RIGHT: Minimal, non-hemodynamically significant stenosis of the proximal right internal carotid artery corresponding to a 0-49% stenosis by velocity criteria. 2. LEFT: Minimal, non-hemodynamically significant stenosis of the proximal left internal carotid artery corresponding to a 0-49% stenosis by velocity criteria.
--- NOTE | ~2021-04-13 | MR_ITS ---
EXAMINATION: MR BRAIN WITHOUT CONTRAST MR LUMBAR SPINE WITHOUT CONTRAST CLINICAL INFORMATION: Nausea and vomiting. Back pain/leg weakness. COMPARISON: CT head from 04/13/2021 and 10/10/2019. TECHNIQUE: MRI of the brain in the lumbar spine was obtained using routine sequences without contrast. FINDINGS: Brain: No focal restricted diffusion is demonstrated to suggest acute or subacute cerebral ischemia. No evidence of acute or chronic hemorrhagic products on heme-sensitive imaging. Basal ganglia mineralization. Confluent periventricular, deep white matter, and brainstem T2 FLAIR hyperintensities consistent with underlying microangiopathy. Proportional prominence of the ventricles and sulcal spaces without evidence of obstructive hydrocephalus. No abnormal mass effect. No midline shift. Normal appearance of the pituitary gland. Normal position of the cerebellar tonsils. Normal arterial and venous vascular flow voids are present. Normal, homogeneous marrow signal. Chronic polypoid mucosal thickening of the left sphenoid air cell. Mild mucosal thickening of the paranasal sinuses. No signal abnormality within the mastoid. Bilateral lens extractions. Lumbar Spine: Degenerative grade 1 anterolisthesis of L5 on S1. Anterior wedge deformity of the T12 vertebral body with 60% loss of anterior body height. No residual marrow edema. There is 0.3 cm retropulsion of the superior posterior body wall of T12. There is a heterogeneous expansile mass centered on the left S1-S2 neural foramen, measuring 3 x 2.8 x 2 cm. Perineural cyst associated with the right-sided S2-S3 neural foramen. Moderate degenerative disc disease at T12-L1, L4-L5, and L5-S1. Mild degenerative disc disease at all additional lumbar levels. Associated mixed moderate discogenic and bony changes including mild Modic type I discogenic edema at L4-L5 and L5-S1. No additional suspicious marrow edema. The remaining vertebral body heights are well-maintained. The conus medullaris terminates at the level of L1-L2. The distal spinal cord is normal in appearance. Moderate subcutaneous edema within the soft tissues of the back from L1-S1. No discrete fluid collection. No additional significant abnormalities of the paraspinal musculature. Moderate presacral edema without demonstrated discrete fluid collection. The left kidney appears absent. There is a 3 cm T2 hyperintense cyst associated with the right kidney. Mild right-sided hydronephrosis. The gallbladder is moderately enlarged with few layering stones in its neck. The abdominal aorta is of normal contour and caliber. AXIAL SPINAL LEVELS: T12-L1: Mild diffuse disc bulge. There is moderate bilateral facet arthropathy. There is no neural foraminal stenosis. There is no spinal canal stenosis. L1-L2: Shallow diffuse disc bulge. There is moderate left and mild right facet joint arthropathy. There is no neural foraminal stenosis. There is no spinal canal stenosis. L2-L3: Shallow diffuse disc bulge. There is mild bilateral facet joint arthropathy. There is mild left and no right neural foraminal stenosis. There is mild narrowing of the left subarticular zone with no overt spinal canal stenosis centrally. L3-L4: Mild diffuse disc bulge. There is moderate left and mild right facet joint arthropathy. There is mild to moderate bilateral neural foraminal stenosis. There is narrowing of the left subarticular zone with no overt spinal canal stenosis centrally. L4-L5: Moderate diffuse disc bulge with superimposed central disc protrusion. There is moderate bilateral facet joint arthropathy. There is moderate bilateral neural foraminal stenosis. There is stenosis of the left greater than right diverticular stones with mild spinal canal stenosis centrally. L5-S1: Moderate diffuse disc bulge. There is severe bilateral facet joint arthropathy. There is mild right and no left neural foraminal stenosis. There is narrowing of the left-sided radicular zone with no overt spinal canal stenosis centrally. MR/MR head/brain wo con IMPRESSION: 1. No acute intracranial abnormality. Moderate to extensive underlying microangiopathy and generalized cerebral volume loss. 2. There is a heterogeneous 3 cm mass centered in the left S1-S2 neural foramen. 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 However, nonspecific metastatic disease could have a similar appearance in the appropriate clinical setting. There is also a moderate amount of presacral edema with indeterminate cause. The left kidney appears absent (recommend correlation potential prior nephrectomy). Further CT evaluation of the abdomen and pelvis may be warranted. 3. [id number] multilevel degenerative arthropathy of the lumbar spine as described in detail above. Most notably, there is mild spinal canal stenosis at L4-L5. Narrowing of the subarticular zones from L2-S1. Moderate neural foraminal stenoses at L3-L4 and L4-L5. Chronic compression deformity of the T12 vertebral body.
--- NOTE | ~2021-04-13 | XR_ITS ---
EXAMINATION: XR CHEST CLINICAL INFORMATION: Shortness of breath COMPARISON: 03/06/2021 TECHNIQUE: Frontal view of the chest was obtained. FINDINGS: Heart size remains mildly enlarged. Pulmonary vasculature is cephalized consistent with mild CHF. No pleural effusion or major zones of airspace space disease. XR/XR chest 1V IMPRESSION: Mild CHF.
--- NOTE | ~2021-04-13 | MR_ITS ---
EXAMINATION: MR BRAIN WITHOUT CONTRAST MR LUMBAR SPINE WITHOUT CONTRAST CLINICAL INFORMATION: Nausea and vomiting. Back pain/leg weakness. COMPARISON: CT head from 04/13/2021 and 10/10/2019. TECHNIQUE: MRI of the brain in the lumbar spine was obtained using routine sequences without contrast. FINDINGS: Brain: No focal restricted diffusion is demonstrated to suggest acute or subacute cerebral ischemia. No evidence of acute or chronic hemorrhagic products on heme-sensitive imaging. Basal ganglia mineralization. Confluent periventricular, deep white matter, and brainstem T2 FLAIR hyperintensities consistent with underlying microangiopathy. Proportional prominence of the ventricles and sulcal spaces without evidence of obstructive hydrocephalus. No abnormal mass effect. No midline shift. Normal appearance of the pituitary gland. Normal position of the cerebellar tonsils. Normal arterial and venous vascular flow voids are present. Normal, homogeneous marrow signal. Chronic polypoid mucosal thickening of the left sphenoid air cell. Mild mucosal thickening of the paranasal sinuses. No signal abnormality within the mastoid. Bilateral lens extractions. Lumbar Spine: Degenerative grade 1 anterolisthesis of L5 on S1. Anterior wedge deformity of the T12 vertebral body with 60% loss of anterior body height. No residual marrow edema. There is 0.3 cm retropulsion of the superior posterior body wall of T12. There is a heterogeneous expansile mass centered on the left S1-S2 neural foramen, measuring 3 x 2.8 x 2 cm. Perineural cyst associated with the right-sided S2-S3 neural foramen. Moderate degenerative disc disease at T12-L1, L4-L5, and L5-S1. Mild degenerative disc disease at all additional lumbar levels. Associated mixed moderate discogenic and bony changes including mild Modic type I discogenic edema at L4-L5 and L5-S1. No additional suspicious marrow edema. The remaining vertebral body heights are well-maintained. The conus medullaris terminates at the level of L1-L2. The distal spinal cord is normal in appearance. Moderate subcutaneous edema within the soft tissues of the back from L1-S1. No discrete fluid collection. No additional significant abnormalities of the paraspinal musculature. Moderate presacral edema without demonstrated discrete fluid collection. The left kidney appears absent. There is a 3 cm T2 hyperintense cyst associated with the right kidney. Mild right-sided hydronephrosis. The gallbladder is moderately enlarged with few layering stones in its neck. The abdominal aorta is of normal contour and caliber. AXIAL SPINAL LEVELS: T12-L1: Mild diffuse disc bulge. There is moderate bilateral facet arthropathy. There is no neural foraminal stenosis. There is no spinal canal stenosis. L1-L2: Shallow diffuse disc bulge. There is moderate left and mild right facet joint arthropathy. There is no neural foraminal stenosis. There is no spinal canal stenosis. L2-L3: Shallow diffuse disc bulge. There is mild bilateral facet joint arthropathy. There is mild left and no right neural foraminal stenosis. There is mild narrowing of the left subarticular zone with no overt spinal canal stenosis centrally. L3-L4: Mild diffuse disc bulge. There is moderate left and mild right facet joint arthropathy. There is mild to moderate bilateral neural foraminal stenosis. There is narrowing of the left subarticular zone with no overt spinal canal stenosis centrally. L4-L5: Moderate diffuse disc bulge with superimposed central disc protrusion. There is moderate bilateral facet joint arthropathy. There is moderate bilateral neural foraminal stenosis. There is stenosis of the left greater than right diverticular stones with mild spinal canal stenosis centrally. L5-S1: Moderate diffuse disc bulge. There is severe bilateral facet joint arthropathy. There is mild right and no left neural foraminal stenosis. There is narrowing of the left-sided radicular zone with no overt spinal canal stenosis centrally.
--- NOTE | ~2021-04-13 | CT_ITS ---
CT cervical spine wo con, CT head/brain wo con CLINICAL INFORMATION: Pain COMPARISON: September 2019 TECHNIQUE: Department standard protocol. This CT examination was performed using dose optimization techniques as appropriate, variously including the following: *Automated exposure control *Adjustment of mA and/or kV according to patient size (this includes techniques or standardized protocols for targeted exams where dose is matched to indication/reason for exam; i.e. extremities or head) *Use of iterative reconstruction technique DLP: 1065 mGy-cm FINDINGS: CEREBRAL HEMISPHERES: Focal hypodense area in the right parietal lobe newly developed on today's exam concerning for possible underlying infarct. Global diffuse deep white matter and paraventricular hypoattenuation nonspecific, commonly due to chronic microvascular angiopathy. BRAIN PARENCHYMA: Normal allen-white matter differentiation. SUBDURAL SPACE: No bleed. BASAL GANGLIA AND PINEAL GLAND: Lacunar infarct in the right thalamus unchanged. VENTRICLES: Symmetric and normal in size. CEREBELLUM AND BRAINSTEM: No space-occupying mass, hemorrhage or acute infarct. CEREBELLOPONTINE ANGLES: No lesion found. ORBITS: No intraorbital mass. VESSELS: Unremarkable SKULL BASE: Unremarkable INCLUDED SINUSES AT SKULL BASE: Opacification of the left sphenoidal air cell unchanged. SKULL AND SKIN: No fracture or bone lesion found. CT/CT cervical spine wo con IMPRESSION: Focal area of low-attenuation in the right parietal lobe raising concern for possible evolving underlying infarct, this has newly developed since prior CT of September 2019. Consider correlation with follow-up MRI. 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 Diffuse deep white matter and paraventricular hypoattenuation globally involving the deep white matter, nonspecific commonly due to chronic microvascular angiopathy. (Referring physician staff is being called, to be alerted of the above findings and recommendations.) EM
[2021-04-13 16:57] VITALS: BP 122/60; BP 156/64; PULSE 78; PULSE 79; RESP 18; TEMP 36.7; O2SAT 95; O2SAT 96; BMI 37.0
[2021-04-13 18:29] VITALS: BP 159/68; PULSE 80; RESP 20; TEMP 36.6; O2SAT 95
--- NOTE | 2021-04-13 19:00 | ED_ITS ---
HPI - General Adult General Chief complaint: Neck Pain/Injury Stated complaint: neck pain/weakness Time Seen by Provider: 04/13/21 17:29 Source: patient Mode of arrival: EMS Limitations: language barrier History of Present Illness HPI narrative: 81-year-old female with a history of chronic leg pain and weakness, MRSA cellulitis, insulin-dependent diabetes, heart failure, kidney disease, GERD, hypertension, presents for new neck pain on the right side and feeling weak today after being released from 2 weeks in a short-term rehab facility. Patient has been short of breath for 2 days. Reports she has had a headache. No blurry vision. Her headache and her neck pain are new today. No fever, no chest pain, no cough, no nausea or vomiting, no pain with urination, no changes in bowels. Related Data Home Medications Medication Instructions Recorded Confirmed amlodipine 10 mg tablet 10 mg PO DAILY 01/07/21 04/13/21 atorvastatin 40 mg tablet 40 mg PO BEDTIME 01/07/21 04/13/21 multivitamin with folic acid 400 1 tab PO DAILY 03/02/21 04/13/21 mcg tablet bumetanide 1 mg tablet 2 mg PO BID@0900,1800 04/13/21 04/13/21 Previous Rx's Medication Instructions Recorded miscellaneous medical supply #1 ea 10/17/20 miscellaneous medical supply #1 ea 12/26/20 cyanocobalamin (vitamin B-12) 1,000 mcg PO DAILY #0 tab 01/17/21 1,000 mcg tablet (Vitamin B-12) hydralazine 50 mg tablet 100 mg PO TID #0 tab 01/17/21 pregabalin 25 mg capsule (Lyrica) 25 mg PO BID #0 cap 01/17/21 insulin lispro 100 unit/mL See Protocol SUBCUT QIDACHS #10 ml 03/14/21 subcutaneous solution (Humalog U-100 Insulin) polyethylene glycol 3350 17 gram 17 g PO DAILY #30 ea 03/14/21 oral powder packet Allergies Allergy/AdvReac Type Severity Reaction Status Date / Time Iodinated Contrast Media Allergy Unknown UNKNOWN Verified 12/26/20 13:27 [IODINATED CONTRAST MEDIA] Review of Systems Constitutional: Constitutional: Denies chills, Reports fatigue, Denies fever(s), Reports headache(s), Reports malaise and Reports weakness Eyes: Eyes: Denies blurry vision and Denies change in vision ENT: Denies dizziness, Denies otalgia, Reports headache(s), Reports neck pain and Denies sore throat Cardiovascular: Cardiovascular: Denies chest pain, Denies rapid heart rate, Reports leg edema, Denies palpitations and Reports dyspnea Respiratory: Respiratory: Denies chest congestion, Denies cough, Reports dyspnea and Denies wheezing Gastrointestinal: Gastrointestinal: Denies abdominal pain, Denies melena, Denies hematochezia, Denies coffee ground emesis, Denies diarrhea, Denies nausea and Denies vomiting Genitourinary: Genitourinary: Reports no additional female genitourinary complaints Musculoskeletal: Musculoskeletal: Reports back pain, Reports arthralgias (right knee, chronic), Reports neck pain and Denies tingling Integumentary/Breasts: Skin/Breast: Denies erythema, Denies rash and Denies wounds Neurologic: Reports Abnormal speech present, Denies dizziness, Reports headache(s), Denies Sensory deficit (Neuro), Denies tingling and Reports weakness Endocrine: Endocrine: Reports fatigue and Denies palpitations Allergic/Immunologic: Allergic/Immunologic: Denies wheezing PMFSH Past Medical History Medical History Abscess of forearm, right Acute on chronic diastolic heart failure Acute respiratory failure with hypoxia Anemia B12 deficiency Chronic renal insufficiency CKD (chronic kidney disease) Congestive heart failure Diabetes Femoral artery stenosis Gram-positive bacteremia High cholesterol Hypertension Hypoxia Lower extremity edema Psoriasis of scalp PVD (peripheral vascular disease) Surgical History History of female sterilization History of shoulder surgery Family History Family History Father No problems noted. Mother No problems noted. Social History Social History Household Members: Family Household Members Other:: Daughter Housing: House Do you presently have visiting nurse or other home services: Yes Alcohol intake: never Patient Tobacco Use Status: Never used Tobacco Smoked in Last 30 Days: No Use of substances other than those prescribed or required for medical reasons: No Advance Directives: Yes Advance Directives on File: Yes Advance Directives Date on File: 01/08/21 service: No Current occupational status: retired and disabled Physical Exam Vital Signs: Vital Signs: Last Vital Signs Temp 97.8 F 04/13/21 18:29 Pulse 80 04/13/21 18:29 Resp 20 04/13/21 18:29 BP 159/68 H 04/13/21 18:29 Pulse Ox 95 04/13/21 18:29 Body Mass Index 37.0 Const: General: alert, awake, ill appearing chronically and tired appearing Nutritional Appearance: obese morbidly obese Orientation/consciousness: patient oriented x3 Limitations: no limitations HENMT: Head: Yes normal to inspection and Yes normocephalic Ears: hearing grossly normal bilaterally General nose exam: Normal external nose present Face and sinus: Yes normal facial exam Mouth: Normal oral and palatal mucosa present Throat: Yes posterior oropharynx normal Eyes: Pupils: Equal, round and reactive pupils present EOM: EOMs intact bilaterally and No Nystagmus present Neck: Neck: Yes normal visual inspection, Yes full ROM, Yes no meningeal signs, Yes trachea midline and Yes supple Resp: Effort & Inspection: normal respiratory effort and able to speak in complete sentences Auscultation: rhonchi throughout and diminished lung sounds diffuse Cardio: Rate: regular rate Rhythm: regular rhythm Heart sounds: S1 norm al heart sound present and S2 normal heart sound present GI: Inspection: Yes normal to inspection Palpation (GI): Soft to palpation, nontender and no guarding Percussion: Yes normal to percussion Auscultation: normal bowel sounds : General: Yes no CVA tenderness Back/Spine/Pelvis: Back: no CVA tenderness Cervical Spine: normal cervical lordosis, cervical ROM normal, cervical muscular tenderness (R>L), cervical spasm and No Cervical spine tenderness Thoracic/Lumbar Spine: No thoracic spinal tenderness and No lumbar spinal tenderness Skin: Other: Partially avulsed toenail 3rd right toe. Neuro: General: patient oriented x3, no meningeal signs and Unable to assess gait (due to right lg pain) Cranial nerves: Yes CN's II-XII intact bilatera lly, Yes Facial sensation intact/muscles of mastication intact, Yes Equal, round and reactive pupils present, Yes Normal accommodation reflex present, Yes Bilaterally intact EOM present, Yes Nystagmus not present, Yes Normal facial strength present, Yes Midline tongue present, Yes Ability to bilaterally rotate head present, Yes Ability to bilaterally elevate shoulders present and No Nystagmus present Cognition (Neuro): normal cognition Speech: Abnormal speech present Gait exam (Neuro): Unable to assess gait (due to right lg pain) Motor exam (neuro): no tremor noted and no asterixis Sensory Exam: No Sensory deficit (Neuro) Coordination: [id number] test normal Romberg Test: Negative Pupils: Normal pupillary reactivity/response: bilateral Extrem: Right lower extremity: normal capillary refill, edema Details: pitting and 2+ and knee Details: tenderness (generalized); No no cyanosis Left lower extremity: normal capillary refill and edema Details: pitting and 2+; No no cyanosis Course Course Course Narrative: 81-year-old female with insulin-dependent diabetes, MRSA cellulitis, CHF, chronic kidney disease, GERD, hypertension, chronic leg pain, presents for new right-sided neck pain, new headache. On exam, patient has reduced breath sounds with mild rhonchi, she has +2 lower extremity pitting ed soniya bilaterally, she has a avulsed toenail on her 3rd right toe. No focal neuro deficits. Symptoms started at 1 pm. Will get chest x-ray, BNP, basic labs, urine, EKG, D-dimer, CT head and CT neck. CXR shows Heart size remains mildly enlarged. Pulmonary vasculature is cephalized consistent with mild CHF. No pleural effusion or major zones of airspace space disease. CT neck shows no cervical frcture or stenosis. CT head shows: Focal area of low-attenuation in the right parietal lobe raising concern for possible evolving underlying infarct, this has newly developed since prior CT of September 2019. Consider correlation with follow-up MRI. I did not order stroke protocol, as I was not expecting stroke with no focal deficits, and just headache with neck pain as presenting symptoms. Delay in obtaining troponin, hospitalist aware. EKG normal sinus at 81 bpm, long QTc. Aspiring given rectally d/t coughing with swallowing Patient is anemic with a hemoglobin of 8.6 hematocrit of 26.8. Patient's creatinine is 2.94, which is close to her baseline, her creatinine was 2.84 in February. BNP is 1 3 4. Carlos hospitalist, will admit Medical Decision Making Lab Data Result diagrams: 04/13/21 19:26 04/13/21 19:26 Labs: Lab Results 04/13/21 04/13/21 04/13/21 Range/Units 19:26 19:26 19:26 WBC 9.2 (4.8-10.8) X10*3/uL RBC 2.93 L (4.20-5.50) X10*6/uL Hgb 8.6 L (12.0-16.0) g/dl Hct 26.8 L (37-47) % MCV 91.5 (80-98) fL MCH 29.4 (27.0-33.0) pg MCHC 32.1 (31.0-35.0) g/dl RDW 15.7 (11.0-16.0) % Plt Count 310 (160-400) X10*3/uL MPV 10.7 (9.4-12.3) fL Immature Gran % (Auto) 0.5 H (0.0-0.4) % Neut % (Auto) 82.2 H (45-73) % Lymph % (Auto) 11.7 L (20-40) % Prentiss % (Auto) 4.3 (2-11) % Eos % (Auto) 1.0 (0-4) % Baso % (Auto) 0.3 (0-2) % Lymph # (Auto) 1.1 L (1.2-4.9) X10*3/uL Prentiss # (Auto) 0.4 (0.1-1.2) X10*3/uL Eos # (Auto) 0.1 (0.0-0.4) X10*3/uL Baso # (Auto) 0.0 (0.0-0.2) X10*3/uL Abs Immat Gran (auto) 0.05 H (0.00-0.03) X10*3/uL Absolute Neuts (auto) 7.6 (2.0-8.3) X10*3/uL Absolute Nucleated RBC 0.000 (0.0-0.012) X10*3/uL Nucleated RBC % (auto) 0.0 (0.0-0.2) /100WBC Sodium 141 (135-145) mmol/L Potassium 4.7 (3.3-5.1) mmol/L Chloride 102 (96-108) mmol/L Carbon Dioxide 24 (22-29) mmol/L Anion Gap 20 (12-20) BUN 73 H (9-16) mg/dL Creatinine 2.92 H (0.5-1.4) mg/dL Estim Creat Clear Calc 15.3 Estimated GFR 15 Random Glucose 156 H D (60-115) mg/dL Calcium 9.5 D (8.4-10.2) mg/dL Total Bilirubin 0.4 (0.0-1.0) mg/dL AST 19 (5-31) U/L ALT 15 (0-31) U/L Alkaline Phosphatase 74 (39-117) U/L B-Natriuretic Peptide 131 H (<100) pg/mL Total Protein 7.7 (6.5-8.0) g/dL Albumin 3.8 (3.5-5.0) g/dL Urine Color Urine Appearance Urine pH (5.0-8.0) Ur Specific [place] (1.005-1.025) Urine Protein (NEG-TRACE) MG/DL Urine Glucose (UA) (NEG) MG/DL Urine Ketones (NEG) MG/DL Urine Blood (NEG) Urine Nitrite (NEG) Ur Leukocyte Esterase (NEG) Urine RBC (0) /HPF Urine WBC (0-4) /HPF Ur Squamous Epith Cells /LPF Urine Bacteria /LPF COVID-19 (ROBBIE) (Negative) COVID-19 Clin Com 04/13/21 04/13/21 Range/Units 19:26 19:26 WBC (4.8-10.8) X10*3/uL RBC (4.20-5.50) X10*6/uL Hgb (12.0-16.0) g/dl Hct (37-47) % MCV (80-98) fL MCH (27.0-33.0) pg MCHC (31.0-35.0) g/dl RDW (11.0-16.0) % Plt Count (160-400) X10*3/uL MPV (9.4-12.3) fL Immature Gran % (Auto) (0.0-0.4) % Neut % (Auto) (45-73) % Lymph % (Auto) (20-40) % P[place]iss % (Auto) (2-11) % Eos % (Auto) (0-4) % Baso % (Auto) (0-2) % Lymph # (Auto) (1.2-4.9) X10*3/uL [place] # (Auto) (0.1-1.2) X10*3/uL Eos # (Auto) (0.0-0.4) X10*3/uL Baso # (Auto) (0.0-0.2) X10*3/uL Abs Immat Gran (auto) (0.00-0.03) X10*3/uL Absolute Neuts (auto) (2.0-8.3) X10*3/uL Absolute Nucleated RBC (0.0-0.012) X10*3/uL Nucleated RBC % (auto) (0.0-0.2) /100WBC Sodium (135-145) mmol/L Potassium (3.3-5.1) mmol/L Chloride (96-108) mmol/L Carbon Dioxide (22-29) mmol/L Anion Gap (12-20) BUN (9-16) mg/dL Creatinine (0.5-1.4) mg/dL Estim Creat Clear Calc Estimated GFR Random Glucose (60-115) mg/dL Calcium (8.4-10.2) mg/dL Total Bilirubin (0.0-1.0) mg/dL AST (5-31) U/L ALT (0-31) U/L Alkaline Phosphatase (39-117) U/L B-Natriuretic Peptide (<100) pg/mL Total Protein (6.5-8.0) g/dL Albumin (3.5-5.0) g/dL Urine Color YELLOW Urine Appearance CLEAR Urine pH 6.0 (5.0-8.0) Ur Specific [place] 1.010 (1.005-1.025) Urine Protein 2+ H (NEG-TRACE) MG/DL Urine Glucose (UA) NEG (NEG) MG/DL Urine Ketones NEG (NEG) MG/DL Urine Blood NEG (NEG) Urine Nitrite NEG (NEG) Ur Leukocyte Esterase NEG (NEG) Urine RBC 0-2 (0) /HPF Urine WBC 1-4 (0-4) /HPF Ur Squamous Epith Cells 1+ /LPF Urine Bacteria TRACE /LPF COVID-19 (ROBBIE) Negative (Negative) COVID-19 Clin Com See Note ECG Data Interpretation: EKG shows normal sinus with a rate of 81, left anterior fascicular block, ME interval 146, QRS 96, prolonged QTC at 490. No ST elevation s or depressions no T-wave inversions Discharge Plan Discharge Patient Disposition: Admitted As Inpatient
--- NOTE | 2021-04-13 19:38 | PC.NURSE ---
PATIENT CAME IN INCONTINENT OF URINE AND LARGE AMOUNT OF STOOL IN PRIEF PATIENT WAS CLEAN UP BY THIS PCT AND DENISE MAURICIO .
--- NOTE | 2021-04-13 19:43 | HE.PHANOTE ---
Pharmacy Consult ? Medication Reconciliation Pharmacy has completed the medication reconciliation and there were no significant medication issues requiring provider attention.? based med rec on recent dsicharge and pharmacy fill history Liv [id number]
[2021-04-13 20:00] VITALS: BP 163/69; PULSE 81; RESP 16; TEMP 36.2; O2SAT 95
[2021-04-13 20:05] LABS: MANUAL DIFF FLAG NO
[2021-04-13 20:07] LABS: COVID-19 Test Negative (Negative)
[2021-04-13 20:10] LABS: Basophils Percent Auto 0.3 % (0-2); Eosinophils Absolute Auto 0.1 X10*3/uL (0.0-0.4); Glucose Urine UA NEG (NEG); Hematocrit 26.8 % (37-47); Hemoglobin 8.6 g/dl (12.0-16.0); Imm Gran Abs Auto 0.05 X10*3/uL (0.00-0.03); Imm Gran Pct Auto 0.5 % (0.0-0.4); Leukocyte Esterase Urine NEG (NEG); Lymphocytes Absolute Auto 1.1 X10*3/uL (1.2-4.9); Lymphocytes Percent Auto 11.7 % (20-40); Mean Corpuscular HGB Conc 32.1 g/dl (31.0-35.0); Mean Corpuscular Hemoglobin 29.4 pg (27.0-33.0); Mean Corpuscular Volume 91.5 fL (80-98); Mean Platelet Volume 10.7 fL (9.4-12.3); Monocytes Absolute Auto 0.4 X10*3/uL (0.1-1.2); Monocytes Percent Auto 4.3 % (2-11); Neutrophils Absolute Auto 7.6 X10*3/uL (2.0-8.3); Neutrophils Percent Auto 82.2 % (45-73); Nitrite Urine NEG (NEG); Platelet Count 310 X10*3/uL (160-400); Red Blood Count 2.93 X10*6/uL (4.20-5.50); Red Cell Distribution Width 15.7 % (11.0-16.0); Urine Blood NEG (NEG); Urine Ketones NEG (NEG); Urine Protein 2+ MG/DL (NEG-TRACE); White Blood Count 9.2 X10*3/uL (4.8-10.8)
[2021-04-13 20:12] LABS: Appearance Urine CLEAR; Color Urine YELLOW
[2021-04-13 20:23] LABS: Bacteria Urine TRACE /LPF; RBC Urine 0-2 /HPF (0); Squamous Epithelial Cell Urine 1+ /LPF
[2021-04-13 20:38] LABS: Alanine Aminotransferase 15 U/L (0-31); Albumin Level 3.8 g/dL (3.5-5.0); Alkaline Phosphatase 74 U/L (39-117); Anion Gap 20 (12-20); Aspartate Amino Transferase 19 U/L (5-31); Bilirubin Total 0.4 mg/dL (0.0-1.0); Blood Urea Nitrogen 73 mg/dL (9-16); Calcium 9.5 mg/dL (8.4-10.2); Carbon Dioxide 24 mmol/L (22-29); Chloride 102 mmol/L (96-108); Creatinine Clr Calc Pharmacy 15.3; Estimated Glomerular Filt Rate 15; Glucose Random 156 mg/dL (60-115); Potassium 4.7 mmol/L (3.3-5.1); Sodium 141 mmol/L (135-145); Total Protein 7.7 g/dL (6.5-8.0)
[2021-04-13 20:40] LABS: B Type Natriuretic Peptide 131 pg/mL (<100)
--- NOTE | 2021-04-13 20:42 | PC.NURSE ---
DAUGHTER CB [phone], UNABLE TO TAKE PATIENT HOME DUE TO WEAKNESS AND STAIRS.
[2021-04-13] MEDS: Aspirin 300 MG SUPP.RECT PR (21:16)
[2021-04-13 21:17] LABS: Troponin-I High Sensitivity 12.5 ng/L (<3.5-17.0)
[2021-04-13 22:12] VITALS: BP 168/71; PULSE 80; RESP 18; TEMP 36.5; O2SAT 94
--- NOTE | 2021-04-13 23:40 | P.HPHOSP_ITS ---
History of Present Illness Date of Service: 04/13/21 Chief Complaint: Acute weakness, headache 81-year-old [place]SPEAK[place] ONLY female with history of CKD, CHF, diabetes mellitus (insulin-dependent), hypertension, hyperlipidemia, who presented with acute onset whole-body weakness, headache. History is from patient (via interpreter translator) and from ED notes. In the patient was recently hospitalized here and discharged on 03/14/2021 after being treated for CHF/hypoxia, cellulitis/abscess secondary to an IV (positive for MRSA). She was discharged to a rehabilitation center, where she states that they did not really work on any upper or lower extremity strengthening. She was discharged from this rehab to home today, where she experienced sudden onset whole-body weakness, as well as right-sided headache that was constant, 9/10 in intensity, never had this prior. She also points out to other issues including: Right 3rd toe pain that started after someone pulled the sheath back and seemed to have dislodged her toenail. Also she has been experiencing worsening lumbar back pain, she says she has been having back pain for months, but it has worsened recently. Otherwise, she denies chest pain, shortness of breath, fever, chills, nausea or vomiting. In the ED, pertinent findings include: Blood pressure as high as 168/71, hemoglobin 8.6, BUN 73, creatinine 2.92 (baseline around 2.8),. CT of the brain without contrast revealed focal area of low attenuation in the right parietal lobe raising concern for possible evolving underlying infarct, this has newly developed since prior CT of September 2019 (please see official report for full details). The patient was treated with rectal aspirin. She failed her bedside swallow evaluation in the ED. She is being admitted for acute stroke, back pain, right toe pain. Review of Systems Constitutional: Constitutional: Denies chills, Denies fatigue, Denies fever(s), Reports headache(s), Denies weakness and Denies weight loss Eyes: Eyes: Denies blurry vision, Denies change in vision, Denies diplopia and Denies loss of vision ENT: Denies dysphagia, Denies vertigo, Denies dizziness, Reports headache(s), Denies hearing loss, Denies lip swelling, Denies sore throat and Reports other (Runny nose) Cardiovascular: Cardiovascular: Denies chest pain, Denies leg edema, Denies lightheadedness, Denies palpitations and Denies dyspnea Respiratory: Respiratory: Denies no additional respiratory complaints, Denies cough, Denies dyspnea and Denies wheezing Gastrointestinal: Gastrointestinal: Denies coffee ground emesis, Denies constipation, Denies dysphagia, Denies diarrhea, Denies nausea and Denies vomiting Genitourinary: Genitourinary: Denies dysuria Musculoskeletal: Musculoskeletal: Reports back pain, Reports arthralgias, Denies muscle weakness, Denies numbness and Denies tingling Comments: Right 3rd toe pain Integumentary/Breasts: Skin/Breast: Denies bleeding lesions, Denies new lesions and Denies rash Neurologic: Denies vertigo, Denies dizziness, Reports headache(s), Denies loss of vision, Denies numbness, Denies tingling and Denies weakness Psychiatric: Psychiatric: Denies anxiety and Denies depression Endocrine: Endocrine: Denies cold intolerance, Denies fatigue, Denies heat intolerance and Denies palpitations Hematologic/Lymphatic: Hematologic/Lymphatic: Denies easy bleeding, Denies easy bruising and Denies lymphadenopathy Allergic/Immunologic: Allergic/Immunologic: Denies lip swelling and Denies wheezing [facility] Medical History Abscess of forearm, right Acute on chronic diastolic heart failure Acute respiratory failure with hypoxia Anemia B12 deficiency Chronic renal insufficiency CKD (chronic kidney disease) Congestive heart failure Diabetes Femoral artery stenosis Gram-positive bacteremia High cholesterol Hypertension Hypoxia Lower extremity edema Psoriasis of scalp PVD (peripheral vascular disease) Family History Father No problems noted. Mother No problems noted. Surgical History History of female sterilization History of shoulder surgery Social History Household Members: Family Household Members Other:: Daughter Housing: House Do you presently have visiting nurse or other home services: Yes Alcohol intake: never Patient Tobacco Use Status: Never used Tobacco Smoked in Last 30 Days: No Use of substances other than those prescribed or required for medical reasons: No Advance Directives: Yes Advance Directives on File: Yes Advance Directives Date on File: 01/08/21 service: No Current occupational status: retired and disabled Meds Allergies Allergy/AdvReac Type Severity Reaction Status Date / Time Iodinated Contrast Media Allergy Unknown UNKNOWN Verified 12/26/20 13:27 [IODINATED CONTRAST MEDIA] Active Medications: Current Medications Generic Name Dose Route Start Last Admin Trade Name Freq PRN Reason Stop Dose Admin Aspirin 300 mg 04/14/21 09:00 Aspirin 300 Mg Supp.Rect WA DAILY PALOMO Dextrose 25 gm 04/13/21 23:39 Dextrose 50 % 25 Gm/50 Ml Vial IVPUSH Q15M PRN per Hypoglycemia Standing Ord. Protocol Glucose 15 gm 04/13/21 23:39 Glucose Gel 15 Gm Gel..Gram. PO Q15M PRN per Hypoglycemia Standing Ord. Protocol Hydralazine HCl 10 mg 04/13/21 23:31 Hydralazine Hcl 20 Mg/Ml Vial IVPUSH Q1H PRN For SBP > 220, OR DBP > 110 Protocol Insulin Human Lispro 0 unit 04/13/21 23:45 Insulin Lispro 100 Unit/Ml 3 Ml Vial SUBCUT Q6H PALOMO Protocol Labetalol HCl 10 mg 04/13/21 23:31 Labetalol Hcl 100 Mg/20 Ml Vial IVPUSH Q1H PRN For SBP > 220 or DBP > 110 Protocol Pharmacy Consult 1 each 04/13/21 18:39 Consult Rx Perform Med Rec MISCELLANE ONCE PRN Consult order Home Medications Medication Instructions Recorded Confirmed Last Taken Type amlodipine 10 mg tablet 10 mg PO DAILY 01/07/21 04/13/21 Unknown History atorvastatin 40 mg tablet 40 mg PO BEDTIME 01/07/21 04/13/21 Unknown History multivitamin with folic acid 400 1 tab PO DAILY 03/02/21 04/13/21 Unknown History mcg tablet bumetanide 1 mg tablet 2 mg PO BID@0900,1800 04/13/21 04/13/21 Unknown History Physical Exam Vital Signs and Narrative: Vital Signs: Last Vital Signs Temp 97.7 F 04/13/21 22:12 Pulse 80 04/13/21 22:12 Resp 18 04/13/21 22:12 BP 168/71 H 04/13/21 22:12 Pulse Ox 94 04/13/21 22:12 Body Mass Index 37.0 Const: General: no acute distress, well developed and alert HENMT: Face and sinus: Yes normal facial exam and Yes face symmetric Mouth: Normal oral and palatal mucosa present and moist mucous membranes Throat: Yes posterior oropharynx normal and Yes tonsils normal Eyes: General: appearance normal, both eyes and all related structures Alignment and Position: alignment normal and position normal Sclerae: sclerae normal EOM: EOMs intact bilaterally Neck: Yes normal visual inspection, Yes full ROM and Yes no lymphadenopathy Lymphatic: no lymphadenopathy noted Resp: Effort & Inspection: normal respiratory effort and able to speak in complete sentences Auscultation: clear to auscultation bilaterally, no crackles, no rales, no rhonchi and no wheezes Cardio: Rate: regular rate Rhythm: regular rhythm Heart sounds: S1 normal heart sound present, S2 normal heart sound present, no murmurs and no rubs GI: Inspection: No distended Palpation (GI): Soft to palpation and nontender Percussion: No tympanic to percussion Auscultation: normal bowel sounds Skin: Rashes: no rashes Trauma: no lacerations or abrasions Wounds: no wounds Neuro: Other: On neurologic exam, the patient was unable to lift either of her lower extremities off the bed. She complained that it was secondary to pain (and explained that her sources of pain involving both knees, both hips, and her lower back). Therefore I was unable to test her gait. Her sensations were intact. Upper extremity finger-nose testing was normal. 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) Extrem: General: Yes full ROM and Yes no pedal edema Psych: Appearance: grossly normal Mental Status: mental status grossly normal Speech and movement: Normal speech and movement present Affect: normal affect Thought process: Normal thought process present Results Labs CBC and Chem 7: 04/13/21 19:26 04/13/21 19:26 Labs: Laboratory Results - last 24 hr 04/13/21 04/13/21 04/13/21 19:26 19:26 19:26 MCV 91.5 MCH 29.4 MCHC 32.1 RDW 15.7 Plt Count 310 MPV 10.7 Immature Gran % (Auto) 0.5 H Neut % (Auto) 82.2 H Lymph % (Auto) 11.7 L Titus % (Auto) 4.3 Eos % (Auto) 1.0 Baso % (Auto) 0.3 Lymph # (Auto) 1.1 L Titus # (Auto) 0.4 Eos # (Auto) 0.1 Baso # (Auto) 0.0 Abs Immat Gran (auto) 0.05 H Absolute Neuts (auto) 7.6 Absolute Nucleated RBC 0.000 Nucleated RBC % (auto) 0.0 Anion Gap 20 Estim Creat Clear Calc 15.3 Estimated GFR 15 Random Glucose 156 H D Calcium 9.5 D Total Bilirubin 0.4 AST 19 ALT 15 Alkaline Phosphatase 74 Troponin I High Sens 12.5 B-Natriuretic Peptide 131 H Total Protein 7.7 Albumin 3.8 Urine Color Urine Appearance Urine pH Ur Specific [place] Urine Protein Urine Glucose (UA) Urine Ketones Urine Blood Urine Nitrite Ur Leukocyte Esterase Urine RBC Urine WBC Ur Squamous Epith Cells Urine Bacteria COVID-19 (ROBBIE) COVID-19 [employer] Com 04/13/21 04/13/21 19:26 19:26 MCV MCH MCHC RDW Plt Count MPV Immature Gran % (Auto) Neut % (Auto) Lymph % (Auto) Titus % (Auto) Eos % (Auto) Baso % (Auto) Lymph # (Auto) Titus # (Auto) Eos # (Auto) Baso # (Auto) Abs Immat Gran (auto) Absolute Neuts (auto) Absolute Nucleated RBC Nucleated RBC % (auto) Anion Gap Estim Creat Clear Calc Estimated GFR Random Glucose Calcium Total Bilirubin AST ALT Alkaline Phosphatase Troponin I High Sens B-Natriuretic Peptide Total Protein Albumin Urine Color YELLOW Urine Appearance CLEAR Urine pH 6.0 Ur Specific [place] 1.010 Urine Protein 2+ H Urine Glucose (UA) NEG Urine Ketones NEG Urine Blood NEG Urine Nitrite NEG Ur Leukocyte Esterase NEG Urine RBC 0-2 Urine WBC 1-4 Ur Squamous Epith Cells 1+ Urine Bacteria TRACE COVID-19 (ROBBIE) Negative COVID-19 Clin Com See Note Imaging Radiologist's Impressions: Impressions Cervical Spine CT 04/13/21 18:56 IMPRESSION: Focal area of low-attenuation in the right parietal lobe raising concern for possible evolving underlying infarct, this has newly developed since prior CT of September 2019. Consider correlation with follow-up MRI. 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 Diffuse deep white matter and paraventricular hypoattenuation globally involving the deep white matter, nonspecific commonly due to chronic microvascular angiopathy. (Referring physician staff is being called, to be alerted of the above findings and recommendations.) EM Chest X-Ray 04/13/21 18:56 IMPRESSION: Mild CHF. Head CT 04/13/21 18:56 IMPRESSION: Focal area of low-attenuation in the right parietal lobe raising concern for possible evolving underlying infarct, this has newly developed since prior CT of September 2019. Consider correlation with follow-up MRI. 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 Diffuse deep white matter and paraventricular hypoattenuation globally involving the deep white matter, nonspecific commonly due to chronic microvascular angiopathy. (Referring physician staff is being called, to be alerted of the above findings and recommendations.) EM Assessment and Plan (1) Acute CVA (cerebrovascular accident): Status: Acute (2) Toe pain: Status: Acute (3) Back pain: Status: Acute (4) Diabetes: Qualifiers: Diabetes mellitus complication status: with other specified complication Diabetes mellitus intermediate insulin use: without exterminator termite use Diabetes mellitus type: type 2 Qualified Code(s): E11.69 - Type 2 diabetes mellitus with other specified complication Status: Acute (5) CKD (chronic kidney disease): Qualifiers: Chronic kidney disease stage: stage 4 (severe) Qualified Code(s): N18.4 - Chronic kidney disease, stage 4 (severe) Status: Acute (6) Hypertension: Qualifiers: Hypertension type: renovascular hypertension Qualified Code(s): I15.0 - Renovascular hypertension Status: Acute (7) High cholesterol: Status: Acute Acute CVA/stroke: -as seen on CT of the head, evolving stroke involving the right parietal lobe -patient failed her bedside swallow evaluation, therefore patient kept strict NPO -rectal aspirin daily -stroke order set implemented, including neurology consult, MRI of the brain with contrast, echocardiogram, carotid Dopplers, physical therapy, speech evaluation (for swallow study) -patient is [place]-speaking only -permissive hypertension tonight with IV labetalol and IV hydralazine p.r.n. for systolic blood pressure above 220 and diastolic blood pressure above 110 -I held on CTA of the head tonight given the fact that her creatinine was elevated -holding all home oral medications due to failed bedside swallow evaluation -regarding lower extremities, she was unable to lift either of her legs off of the bed, she says was secondary to pain in her knees, hips and her lower back. Unclear whether this represents some sort of neurologic process (including nerve impingement or sciatica or spinal stenosis) verses hip/knee arthritis. MRI of the lumbar spine was ordered. Perhaps neurology can comment on this as well. Toe pain: -patient complaining of right 3rd toe pain -on physical examination, patient's right 3rd toenail has been pulled back off the cuticle -spoke with ER physician, who will get his nurse to trim the toenail back so that there is less chance of toenail being caught on something -does not appear to be overtly infected at this point; I think the redness is from the irritation from getting the toenail pullback. Will hold on antibiotics for now. Morning team can reassess Back pain: -patient complaining of lumbar spine pain that has been ongoing for 3-4 months, but has worsened recently -patient states that she is having difficult time moving her legs because of pain; however, patient does complain of lumbar spine pain, hip pain and knee pain bilaterally -MRI of the lumbar spine ordered -patient very guarded with regards to moving bilateral lower extremities, she says it is secondary to pain, perhaps neurology can comment (or suggests possibl e etiologies for) her bilateral lower extremity pain Diabetes: -insulin sliding scale with blood sugar checks every 6 hours -holding oral meds CKD: -creatinine in the ED was 2.92; baseline creatinine seems to be about 2.8 -daily labs Hypertension: -holding oral meds for now because patient has failed her bedside swallow evaluation, and because we are practicing permissive hypertension -IV labetalol and IV hydralazine as needed (please see above) High cholesterol: -holding oral medications for now due to patient failed her bedside swallow evaluation FEN: NPO strict, IVF at 75 cc/hr x 1 L total CODE STATUS: FULL CODE DISPO: Admit to Inpatient Quality Stroke Does the patient have a stroke diagnosis?: Yes Reason for No Anti-thrombotic by Day Two: N/A - Med Ordered VTE Prior VTE?: No VTE Risk Level:: Medical - low VTE Device Contraindication: N/A - Device Ordered VTE Drug Contraindication: Treatment Not Indicated
[2021-04-14] VITALS (10 sets, daily range): BP systolic 162–197; BP diastolic 67–87; PULSE 65–90; RESP 16–18; TEMP 36.6–37.2; O2SAT 93–98
[2021-04-14] MEDS: 0.9 % Sodium Chloride 1,000 ML 75 ML IV (00:36)
[2021-04-14 01:46] LABS: Glucose, Whole Blood 133 mg/dL (60-115)
[2021-04-14 05:45] LABS: Glucose, Whole Blood 104 mg/dL (60-115)
[2021-04-14 06:27] LABS: MANUAL DIFF FLAG NO
[2021-04-14 07:01] LABS: Basophils Percent Auto 0.6 % (0-2); Eosinophils Absolute Auto 0.2 X10*3/uL (0.0-0.4); Eosinophils Percent Auto 2.6 % (0-4); Hematocrit 26.4 % (37-47); Hemoglobin 8.3 g/dl (12.0-16.0); Imm Gran Abs Auto 0.03 X10*3/uL (0.00-0.03); Imm Gran Pct Auto 0.4 % (0.0-0.4); Lymphocytes Absolute Auto 1.8 X10*3/uL (1.2-4.9); Lymphocytes Percent Auto 25.2 % (20-40); Mean Corpuscular HGB Conc 31.4 g/dl (31.0-35.0); Mean Corpuscular Volume 92.3 fL (80-98); Mean Platelet Volume 10.7 fL (9.4-12.3); Monocytes Absolute Auto 0.6 X10*3/uL (0.1-1.2); Monocytes Percent Auto 8.3 % (2-11); Neutrophils Absolute Auto 4.4 X10*3/uL (2.0-8.3); Neutrophils Percent Auto 62.9 % (45-73); Platelet Count 303 X10*3/uL (160-400); Red Blood Count 2.86 X10*6/uL (4.20-5.50); Red Cell Distribution Width 15.5 % (11.0-16.0)
[2021-04-14 07:03] LABS: Anion Gap 18 (12-20); Blood Urea Nitrogen 67 mg/dL (9-16); Calcium 9.6 mg/dL (8.4-10.2); Carbon Dioxide 26 mmol/L (22-29); Chloride 103 mmol/L (96-108); Cholesterol 130 mg/dL; Creatinine Clr Calc Pharmacy 15.9; Estimated Glomerular Filt Rate 16; Glucose Random 107 mg/dL (60-115); HDL Cholesterol 46 mg/dL; LDL Cholesterol Calculated 63 mg/dl; Potassium 4.9 mmol/L (3.3-5.1); Sodium 142 mmol/L (135-145); Triglycerides 107 mg/dL
--- NOTE | 2021-04-14 09:20 | P.PNIM_ITS ---
Subjective Subjective Date of Service: 04/14/21 Interval History: seen and examined no new complaints reports pain in L left leg and generalized weakness Review of Systems General - no fevers or chills Cardiovascular - no chest pain Respiratory - no shortness of breath or cough Abdominal- no abdominal pain, nausea, vomiting, diarrhea Physical Exam Vital Signs: Vital Signs: Last Vital Signs Temp 97.7 F 04/13/21 22:12 Pulse 65 04/14/21 08:07 Resp 16 04/14/21 02:00 BP 162/67 H 04/14/21 01:32 Pulse Ox 95 04/14/21 01:32 Body Mass Index 37.0 Const: General: no acute distress, well developed and alert HENMT: Face and sinus: Yes normal facial exam and Yes face symmetric Mouth: Normal oral and palatal mucosa present and moist mucous membranes Throat: Yes posterior oropharynx normal and Yes tonsils normal Eyes: General: appearance normal, both eyes and all related structures Alignment and Position: alignment normal and position normal Sclerae: sclerae normal EOM: EOMs intact bilaterally Neck: Neck: Yes normal visual inspection, Yes full ROM and Yes no lymphadenopathy Lymphatic: no lymphadenopathy noted Resp: Effort & Inspection: normal respiratory effort and able to speak in complete sentences Auscultation: clear to auscultation bilaterally, no crackles, no rales, no rhonchi and no wheezes Cardio: Rate: regular rate Rhythm: regular rhythm Heart sounds: S1 normal heart sound present, S2 normal heart sound present, no murmurs and no rubs GI: Inspection: No distended Palpation (GI): Soft to palpation and nontender Percussion: No tympanic to percussion Auscultation: normal bowel sounds Skin: Rashes: no rashes Trauma: no lacerations or abrasions Wounds: no wounds Neuro: Other: On neurologic exam, the patient was unable to lift either of her lower extremities off the bed. She complained that it was secondary to pain (and explained that her sources of pain involving both knees, both hips, and her lower back). Therefore I was unable to test her gait. Her sensations were intact. Upper extremity finger-nose testing was normal. 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 Protocol Glucose 15 gm 04/13/21 23:39 Glucose Gel 15 Gm Gel..Gram. PO Q15M PRN per Hypoglycemia Standing Ord. Protocol Hydralazine HCl 10 mg 04/13/21 23:31 Hydralazine Hcl 20 Mg/Ml Vial IVPUSH Q1H PRN For SBP > 220, OR DBP > 110 Protocol Sodium Chloride 1,000 mls @ 75 mls/hr 04/13/21 23:45 04/14/21 00:36 Ns IV 04/14/21 13:04 75 mls/hr .[id number] PALOMO Administration Insulin Human Lispro 0 unit 04/13/21 23:45 04/14/21 05:44 Insulin Lispro 100 Unit/Ml 3 Ml Vial SUBCUT Not Given Q6H PENDING SALE TO [facility] Protocol Labetalol HCl 10 mg 04/13/21 23:31 Labetalol Hcl 100 Mg/20 Ml Vial IVPUSH Q1H PRN For SBP > 220 or DBP > 110 Protocol Pharmacy Consult 1 each 04/13/21 18:39 Consult Rx Perform Med Rec MISCELLANE ONCE PRN Consult order Labs CBC & Chem 7: 04/14/21 06:21 04/14/21 06:21 Labs: Laboratory Results - last 24 hr 04/13/21 04/13/21 04/13/21 19:26 19:26 19:26 MCV 91.5 MCH 29.4 MCHC 32.1 RDW 15.7 Plt Count 310 MPV 10.7 Immature Gran % (Auto) 0.5 H Neut % (Auto) 82.2 H Lymph % (Auto) 11.7 L [place] % (Auto) 4.3 Eos % (Auto) 1.0 Baso % (Auto) 0.3 Lymph # (Auto) 1.1 L [place] # (Auto) 0.4 Eos # (Auto) 0.1 Baso # (Auto) 0.0 Abs Immat Gran (auto) 0.05 H Absolute Neuts (auto) 7.6 Absolute Nucleated RBC 0.000 Nucleated RBC % (auto) 0.0 Anion Gap 20 Estim Creat Clear Calc 15.3 Estimated GFR 15 POC Glucose Random Glucose 156 H D Calcium 9.5 D Total Bilirubin 0.4 AST 19 ALT 15 Alkaline Phosphatase 74 Troponin I High Sens 12.5 B-Natriuretic Peptide 131 H Total Protein 7.7 Albumin 3.8 Triglycerides Cholesterol LDL Cholesterol, Calc HDL Cholesterol Urine Color Urine Appearance Urine pH Ur Specific [place] Urine Protein Urine Glucose (UA) Urine Ketones Urine Blood Urine Nitrite Ur Leukocyte Esterase Urine RBC Urine WBC Ur Squamous Epith Cells Urine Bacteria COVID-19 (ROBBIE) COVID-19 Clin Com 04/13/21 04/13/21 04/14/21 19:26 19:26 01:40 MCV MCH MCHC RDW Plt Count MPV Immature Gran % (Auto) Neut % (Auto) Lymph % (Auto) [place] % (Auto) Eos % (Auto) Baso % (Auto) Lymph # (Auto) [place] # (Auto) Eos # (Auto) Baso # (Auto) Abs Immat Gran (auto) Absolute Neuts (auto) Absolute Nucleated RBC Nucleated RBC % (auto) Anion Gap Estim Creat Clear Calc Estimated GFR POC Glucose 133 H Random Glucose Calcium Total Bilirubin AST ALT Alkaline Phosphatase Troponin I High Sens B-Natriuretic Peptide Total Protein Albumin Triglycerides Cholesterol LDL Cholesterol, Calc HDL Cholesterol Urine Color YELLOW Urine Appearance CLEAR Urine pH 6.0 Ur Specific [place] 1.010 Urine Protein 2+ H Urine Glucose (UA) NEG Urine Ketones NEG Urine Blood NEG Urine Nitrite NEG Ur Leukocyte Esterase NEG Urine RBC 0-2 Urine WBC 1-4 Ur Squamous Epith Cells 1+ Urine Bacteria TRACE COVID-19 (ROBBIE) Negative COVID-19 Clin Com See Note 04/14/21 04/14/21 04/14/21 05:42 06:21 06:21 MCV 92.3 MCH 29.0 MCHC 31.4 RDW 15.5 Plt Count 303 MPV 10.7 Immature Gran % (Auto) 0.4 Neut % (Auto) 62.9 Lymph % (Auto) 25.2 [place] % (Auto) 8.3 Eos % (Auto) 2.6 Baso % (Auto) 0.6 Lymph # (Auto) 1.8 [place] # (Auto) 0.6 Eos # (Auto) 0.2 Baso # (Auto) 0.0 Abs Immat Gran (auto) 0.03 Absolute Neuts (auto) 4.4 Absolute Nucleated RBC 0.000 Nucleated RBC % (auto) 0.0 Anion Gap 18 Estim Creat Clear Calc 15.9 Estimated GFR 16 POC Glucose 104 Random Glucose 107 Calcium 9.6 Total Bilirubin AST ALT Alkaline Phosphatase Troponin I High Sens B-Natriuretic Peptide Total Protein Albumin Triglycerides 107 Cholesterol 130 LDL Cholesterol, Calc 63 HDL Cholesterol 46 Urine Color Urine Appearance Urine pH Ur Specific [place] Urine Protein Urine Glucose (UA) Urine Ketones Urine Blood Urine Nitrite Ur Leukocyte Esterase Urine RBC Urine WBC Ur Squamous Epith Cells Urine Bacteria COVID-19 (ROBBIE) COVID-19 Clin Com Assessment and Plan (1) Acute CVA (cerebrovascular accident): Status: Acute Assessment and Plan: This an 81 yo F admitted for 1. Acute CVA seen on CT scan failed swallow eval by RN -- will need formal speech/swallow PT/OT Neurology consult rectal asa for now usual cva work up 2. DM NPO for now sliding scale q6 hours start d5-12 while NPO 3. ? back pain MRI back ordered, leila follow 4. CKD4 baseline monitor 5. Toe pain (see admission H&P for details) mild redness, monitor Full Code DVT pptx, subcut. heparin Quality Stroke Does the patient have a stroke diagnosis?: Yes Reason for No Anti-thrombotic by Day Two: N/A - Med Ordered VTE Prior VTE?: No VTE Risk Level:: Medical - low VTE Device Contraindication: N/A - Device Ordered VTE Drug Contraindication: Treatment Not Indicated
[2021-04-14] MEDS: Dextrose 5 % and 0.45 % NaCl 1,000 ML 80 ML IVCONT (11:05)
[2021-04-14] MEDS: Heparin Sodium,Porcine 5,000 UNIT/ML VIAL 5000 UNIT SUBCUT ×2 (11:45→21:31)
[2021-04-14 13:12] LABS: Glucose, Whole Blood 110 mg/dL (60-115)
[2021-04-14] MEDS: Aspirin 300 MG SUPP.RECT PR (15:30)
[2021-04-14 19:05] LABS: Glucose, Whole Blood 163 mg/dL (60-115)
[2021-04-14 19:23] LABS: Glucose, Whole Blood 154 mg/dL (60-115)
--- NOTE | 2021-04-14 19:35 | P.CNNE_ITS ---
History of Present Illness Data of Consult Service Date: 04/14/21 Primary Care Provider: Unknown Physician HPI 81 yr woman with multiple medical problems, recent, CHF, cellulitis, [facility] discharged home from [facility] come swith generalized weakness and several weeks of LBP and some LLE pain. MRI shows no acute stroke, Carotid doppler un remarkable. 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 Review of Systems Review of Systems: General - no fevers or chills Cardiovascular - no chest pain Respiratory - no shortness of breath or cough Abdominal- no abdominal pain, nausea, vomiting, diarrhea Constitutional: Constitutional: Denies chills, Denies fatigue, Denies fever(s), Reports headache(s), Reports malaise, Denies weakness and Denies weight loss Eyes: Eyes: Denies blurry vision, Denies change in vision, Denies diplopia and Denies loss of vision ENT: Denies dysphagia, Denies vertigo, Denies dizziness, Denies otalgia, Reports headache(s), Denies hearing loss, Denies lip swelling, Reports neck pain, Denies sore throat and Reports other (Runny nose) Cardiovascular: Cardiovascular: Denies chest pain, Denies rapid heart rate, Denies leg edema, Denies lightheadedness, Denies palpitations and Denies dyspnea Respiratory: Respiratory: Denies no additional respiratory complaints, Denies chest congestion, Denies cough, Denies dyspnea and Denies wheezing Gastrointestinal: Gastrointestinal: Denies abdominal pain, Denies melena, Denies hematochezia, Denies coffee ground emesis, Denies constipation, Denies dysphagia, Denies diarrhea, Denies nausea and Denies vomiting Musculoskeletal: Musculoskeletal: Reports back pain, Reports arthralgias, Denies muscle weakness, Reports neck pain, Denies numbness and Denies tingling Integumentary/Breasts: Skin/Breast: Denies bleeding lesions, Denies new lesions, Denies erythema, Denies rash and Denies wounds Neurologic: Reports Abnormal speech present, Denies vertigo, Denies dizziness, Reports headache(s), Denies loss of vision, Denies numbness, Denies Sensory deficit (Neuro), Denies tingling and Denies weakness Psychiatric: Psychiatric: Denies anxiety and Denies depression Endocrine: Endocrine: Denies cold intolerance, Denies fatigue, Denies heat intolerance and Denies palpitations Hematologic/Lymphatic: Hematologic/Lymphatic: Denies easy bleeding, Denies easy bruising and Denies lymphadenopathy Allergic/Immunologic: Allergic/Immunologic: Denies lip swelling and Denies whe ezing PMFSH Past Medical History Medical History Abscess of forearm, right Acute on chronic diastolic heart failure Acute respiratory failure with hypoxia Anemia B12 deficiency Chronic renal insufficiency CKD (chronic kidney disease) Congestive heart failure Diabetes Femoral artery stenosis Gram-positive bacteremia High cholesterol Hypertension Hypoxia Lower extremity edema Psoriasis of scalp PVD (peripheral vascular disease) Family History Family History Father No problems noted. Mother No problems noted. Surgical History Surgical History History of female sterilization History of shoulder surgery Social History Social History Household Members: None Household Members Other:: Daughter Housing: House Do you presently have visiting nurse or other home services: Yes Alcohol intake: never Patient Tobacco Use Status: Never used Tobacco Smoked in Last 30 Days: No Use of substances other than those prescribed or required for medical reasons: No Have you been hit, kicked, punched, or otherwise hurt by someone within the past year? If so, by whom?: No Do you feel safe in your current relationship?: No Current Relationship Is there a partner from a previous relationship who is making you feel unsafe now?: No Are you made to feel afraid or neglected: No Advance Directives: Yes Advance Directives on File: Yes Advance Directives Date on File: 01/08/21 Do you have thoughts of harming others: None Do you have a plan to hurt others: No Plan Recently lost weight without trying: No Nutrition Risks: Difficulty swallowing Patient : No : No Poor oral hygiene: No service: No Current occupational status: retired and disabled Meds Allergies Allergy/AdvReac Type Severity Reaction Status Date / Time Iodinated Contrast Media Allergy Unknown UNKNOWN Verified 12/26/20 13:27 [IODINATED CONTRAST MEDIA] Active Medications: Current Medications Generic Name Dose Route Start Last Admin Trade Name Freq PRN Reason Stop Dose Admin Aspirin 300 mg 04/14/21 09:00 04/14/21 15:30 Aspirin 300 Mg Supp.Rect PA 300 mg DAILY PALOMO Administration Dextrose 25 gm 04/13/21 23:39 Dextrose 50 % 25 Gm/50 Ml Vial IVPUSH Q15M PRN per Hypoglycemia Standing Ord. Protocol Glucose 15 gm 04/13/21 23:39 Glucose Gel 15 Gm Gel..Gram. PO Q15M PRN per Hypoglycemia Standing Ord. Protocol Heparin Sodium (Porcine) 5,000 unit 04/14/21 10:00 04/14/21 11:45 Heparin Sodium,Porcine 5,000 Unit/Ml Vial SUBCUT 5,000 unit Q12H PALOMO Administration Dextrose/Sodium Chloride 1,000 mls @ 80 mls/hr 04/14/21 09:30 04/14/21 11:05 D51/2ns IVCONT 80 mls/hr .[id number] PALOMO Administration Insulin Human Lispro 0 unit 04/13/21 23:45 04/14/21 19:08 Insulin Lispro 100 Unit/Ml 3 Ml Vial SUBCUT Not Given Q6H PALOMO Protocol Pharmacy Consult 1 each 04/13/21 18:39 Consult Rx Perform Med Rec MISCELLANE ONCE PRN Consult order Home Medications Medication Instructions Recorded Confirmed Last Taken Type amlodipine 10 mg tablet 10 mg PO DAILY 01/07/21 04/13/21 Unknown History atorvastatin 40 mg tablet 40 mg PO BEDTIME 01/07/21 04/13/21 Unknown History multivitamin with folic acid 400 1 tab PO DAILY 03/02/21 04/13/21 Unknown History mcg tablet bumetanide 1 mg tablet 2 mg PO BID@0900,1800 04/13/21 04/13/21 Unknown History Physical Exam Vital Signs: Vital Signs: Last Vital Signs Temp 98.6 F 04/14/21 19:16 Pulse 85 04/14/21 19:16 Resp 18 04/14/21 19:16 BP 197/87 H 04/14/21 19:16 Pulse Ox 94 04/14/21 19:16 Body Mass Index 37.0 Const: General: no acute distress, well developed, alert, awake, ill appearing chronically and tired appearing Nutritional Appearance: obese morbidly obese Orientation/consciousness: patient oriented x3 Limitations: no limitations HENMT: Head: Yes normal to inspection and Yes normocephalic Ears: hearing grossly normal bilaterally General nose exam: Normal external nose present Face and sinus: Yes normal facial exam and Yes face symmetric Mouth: Normal oral and palatal mucosa present and moist mucous membranes Throat: Yes posterior oropharynx normal and Yes tonsils normal Eyes: General: appearance normal, both eyes and all related structures Alignment and Position: alignment normal and position normal Sclerae: sclerae normal Pupils: Equal, round and reactive pupils present EOM: EOMs intact bilaterally and No Nystagmus present Neck: Neck: Yes normal visual inspection, Yes full ROM, Yes no lymphadenopathy, Yes no meningeal signs, Yes trachea midline and Yes supple Lymphatic: no lymphadenopathy noted Resp: Effort & Inspection: normal respiratory effort and able to speak in complete sentences Auscultation: clear to auscultation bilaterally, no crackles, no rales, no rhonchi, no wheezes and diminished lung sounds diffuse Cardio: Rate: regular rate Rhythm: regular rhythm Heart sounds: S1 normal heart sound present, S2 normal heart sound present, no murmurs and no rubs GI: Inspection: Yes normal to inspection and No distended Palpation (GI): Soft to palpation, nontender and no guarding Percussion: Yes normal to percussion and No tympanic to percussion Auscultation: normal bowel sounds : General: Yes no CVA tenderness Back/Spine/Pelvis: Back: no CVA tenderness Cervical Spine: normal cervical lordosis, cervical ROM normal, cervical muscular tenderness (R>L), cervical spasm and No Cervical spine tenderness Thoracic/Lumbar Spine: No thoracic spinal tenderness and No lumbar spinal tenderness Skin: Other: Partially avulsed toenail 3rd right toe. Rashes: no rashes Trauma: no lacerations or abrasions Wounds: no wounds Neuro: Other: On neurologic exam, the patient was unable to lift either of her lower extremities off the bed. She complained that it was secondary to pain (and explained that her sources of pain involving both knees, both hips, and her lower back). Therefore I was unable to test her gait. Her sensations were intact. Upper extremity finger-nose testing was normal. 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), Yes Facial sensation intact/muscles of mastication intact, Yes Equal, round and reactive pupils present, Yes Normal accommodation reflex present, Yes Bilaterally intact EOM present, Yes Nystagmus not present, Yes Normal facial strength present, Yes Midline tongue present, Yes Ability to bilaterally rotate head present, Yes Ability to bilaterally elevate shoulders present and No Nystagmus present Cognition (Neuro): normal cogn ition Speech: Abnormal speech present Gait exam (Neuro): Unable to assess gait (due to right lg pain) Motor exam (neuro): no tremor noted and no asterixis Sensory Exam: No Sensory deficit (Neuro) Coordination: [id number] test normal Romberg Test: Negative Pupils: Normal pupillary reactivity/response: bilateral Extrem: General: Yes full ROM and Yes no pedal edema Right lower extremity: normal capillary refill, edema Details: pitting and 2+ and knee Details: tenderness (generalized); No no cyanosis Left lower extremity: normal capillary refill and edema Details: pitting and 2+; No no cyanosis Psych: Appearance: grossly normal Mental Status: mental status grossly normal Speech and movement: Normal speech and movement present Affect: normal affect Thought process: Normal thought process present Results Labs CBC & Chem 7: 04/14/21 06:21 04/14/21 06:21 Labs: Short CBC 04/13/21 04/14/21 Range/Units 19:26 06:21 WBC 9.2 7.0 (4.8-10.8) X10*3/uL Hgb 8.6 L 8.3 L (12.0-16.0) g/dl Hct 26.8 L 26.4 L (37-47) % Plt Count 310 303 (160-400) X10*3/uL [facility] 04/13/21 04/14/21 19:26 06:21 Sodium 141 142 Potassium 4.7 4.9 Chloride 102 103 Carbon Dioxide 24 26 BUN 73 H 67 H Creatinine 2.92 H 2.80 H Calcium 9.5 D 9.6 Liver Function 04/13/21 Range/Units 19:26 Total Bilirubin 0.4 (0.0-1.0) mg/dL AST 19 (5-31) U/L ALT 15 (0-31) U/L Alkaline Phosphatase 74 (39-117) U/L Albumin 3.8 (3.5-5.0) g/dL Urine 04/13/21 Range/Units 19:26 Urine Color YELLOW Urine Appearance CLEAR Urine pH 6.0 (5.0-8.0) Ur Specific [place] 1.010 (1.005-1.025) Urine Protein 2+ H (NEG-TRACE) MG/DL Urine Glucose (UA) NEG (NEG) MG/DL Assessment and Plan (1) Acute CVA (cerebrovascular accident): Status: Acute Non specific sx with no evidence of acute stroke. Mild chronic white matter microvacsular disease. No carotid occlusive disease (2) Low back pain at multiple sites: Status: Acute Probably related to compression Fx or possibly from Left S1-2 neuroma Recom: out patient neurosurgical consult. May use gabapentin and tramadol for pain control (3) Lumbar radiculopathy: Status: Acute Recom: out patient neurosurgical consult. May use gabapentin and tramadol for pain control This an 81 yo F admitted for 1. Acute CVA seen on CT scan failed swallow eval by RN -- will need formal speech/swallow PT/OT Neurology consult rectal asa for now usual cva work up 2. DM NPO for now sliding scale q6 hours start d5-1/2 while NPO 3. ? back pain MRI back ordered, leila follow 4. CKD4 baseline monitor 5. Toe pain (see admission H&P for details) mild redness, monitor Full Code DVT pptx, subcut. heparin Procedures Date of Service Date of Service: 04/14/21
[2021-04-14] MEDS: Acetaminophen 325 MG TABLET 650 MG PO (22:16)
[2021-04-14 23:54] LABS: Glucose, Whole Blood 201 mg/dL (60-115)
[2021-04-15] VITALS (9 sets, daily range): BP systolic 152–179; BP diastolic 58–84; PULSE 70–83; RESP 18–20; TEMP 36.2–36.9; O2SAT 94–97
[2021-04-15] MEDS: Insulin Lispro 100 UNIT/ML 3 ML VIAL SUBCUT ×3 (00:11→22:02)
[2021-04-15 07:21] LABS: Glucose, Whole Blood 84 mg/dL (60-115)
--- NOTE | 2021-04-15 08:36 | P.PNIM_ITS ---
Progress Note: A&P (1) Lumbar radiculopathy: Status: Acute (2) Acute CVA (cerebrovascular accident): Status: Acute Assessment and Plan: This an 81 yo F admitted for acute Cva CVA vs TIA seen on CT scan, not seen on MRI speech/swallow eval PT/OT rec STR Neurology following carotid doppler showing minimal stenosis bilat echo showing akinesis and elevated pressures, cardiology consult Diabetes cardiac diet sliding scale Back pain. Seems chronic Seen and evaluated by neuro with rec for neurosurg o/p follow up for lumbar ra diculopathy MRI showing no acute, no acute intracranial abnormality. 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 CKD4 baseline monitor Toe pain (see admission H&P for details) mild redness, monitor DISPO likely discharge tomorrow when medically stable Full Code DVT pptx, subcut. heparin Subjective Subjective Date of Service: 04/15/21 Interval History: Follow up Physical Exam Vital Signs: Vital Signs: Last Vital Signs Temp 98.0 F 04/15/21 07:48 Pulse 80 04/15/21 07:48 Resp 20 04/15/21 07:48 BP 162/79 H 04/15/21 07:48 Pulse Ox 95 04/15/21 07:48 Body Mass Index 37.0 Objective Data Current Medications Generic Name Dose Route Start Last Admin Trade Name Freq PRN Reason Stop Dose Admin Acetaminophen 650 mg 04/14/21 21:59 04/14/21 22:16 Acetaminophen 325 Mg Tablet PO 650 mg Q6H PRN Administration Pain, Mild (Pain Scale 1-3) Aspirin 300 mg 04/14/21 09:00 04/14/21 15:30 Aspirin 300 Mg Supp.Rect SD 300 mg DAILY PALOMO Administration Dextrose 25 gm 04/13/21 23:39 Dextrose 50 % 25 Gm/50 Ml Vial IVPUSH Q15M PRN per Hypoglycemia Standing Ord. Protocol Glucose 15 gm 04/13/21 23:39 Glucose Gel 15 Gm Gel..Gram. PO Q15M PRN per Hypoglycemia Standing Ord. Protocol Heparin Sodium (Porcine) 5,000 unit 04/14/21 10:00 04/14/21 21:31 Heparin Sodium,Porcine 5,000 Unit/Ml Vial SUBCUT 5,000 unit Q12H PALOMO Administration Insulin Human Lispro 0 unit 04/15/21 07:30 04/15/21 07:26 Insulin Lispro 100 Unit/Ml 3 Ml Vial SUBCUT Not Given [facility] Protocol Pharmacy Consult 1 each 04/13/21 18:39 Consult Rx Perform Med Rec MISCELLANE ONCE PRN Consult order Labs CBC & Chem 7: 04/14/21 06:21 04/14/21 06:21 Labs: Laboratory Results - last 24 hr 04/14/21 04/14/21 04/14/21 12:52 19:01 19:19 POC Glucose 110 163 H 154 H 04/14/21 04/15/21 23:50 07:17 POC Glucose 201 H 84 Quality Stroke Does the patient have a stroke diagnosis?: Yes Reason for No Anti-thrombotic by Day Two: N/A - Med Ordered VTE Prior VTE?: No VTE Risk Level:: Medical - low VTE Device Contraindication: N/A - Device Ordered VTE Drug Contraindication: Treatment Not Indicated
--- NOTE | 2021-04-15 09:09 | MHC.CM.PN ---
Patient lives with daughter Emilee (who speaks macedonian). Has all required equipment; WC, walker, bedside commode, transportation, OP rehab and services through [facility]. D/C plan is home to return with all of that with [facility]: [facility] provides transportation and should be contacted prior to D/C for planning. [facility] provides transportation to OP rehab, as well as in-home VNA services. CM to follow.
[2021-04-15] MEDS: Aspirin 325 MG TABLET PO (10:11)
[2021-04-15] MEDS: Heparin Sodium,Porcine 5,000 UNIT/ML VIAL 5000 UNIT SUBCUT ×2 (10:11→22:02)
[2021-04-15] MEDS: hydrALAZINE HCl 50 MG TABLET 100 MG PO ×3 (10:12→22:01)
[2021-04-15] MEDS: Bumetanide 1 MG TABLET 2 MG PO ×2 (10:12→16:40)
[2021-04-15] MEDS: Multivitamin TABLET 1 TAB PO (10:12)
[2021-04-15] MEDS: amLODIPine Besylate 10 MG TABLET PO (10:14)
[2021-04-15] MEDS: Pregabalin 25 MG CAPSULE PO ×2 (10:14→22:01)
[2021-04-15] MEDS: Cyanocobalamin (Vitamin B-12) 1,000 MCG TABLET 1000 MCG PO (10:15)
[2021-04-15 11:43] LABS: Glucose, Whole Blood 138 mg/dL (60-115)
[2021-04-15] MEDS: Acetaminophen 325 MG TABLET 650 MG PO (15:15)
[2021-04-15 16:25] LABS: Glucose, Whole Blood 254 mg/dL (60-115)
[2021-04-15 21:56] LABS: Glucose, Whole Blood 240 mg/dL (60-115)
[2021-04-15 22:01] LABS: Glucose, Whole Blood 204 mg/dL (60-115)
[2021-04-15] MEDS: Atorvastatin Calcium 40 MG TABLET PO (22:01)
[2021-04-16] VITALS (8 sets, daily range): BP systolic 142–188; BP diastolic 66–80; PULSE 77–95; RESP 18–20; TEMP 36.9–37.6; O2SAT 93–96
[2021-04-16 07:26] LABS: Glucose, Whole Blood 112 mg/dL (60-115)
--- NOTE | 2021-04-16 07:30 | CA_ITS ---
Transthoracic Echocardiogram Limited Patient (Last, First, Middle): Kay Cuadra, Abbey Gender: Female Date of : 1940 Age: 81 Procedure Date: 04/16/2021 Procedure Type: Transthoracic Echocardiogram Limited Location: [facility] [place] Height: 154.94 cm Weight: 88.45 kg BSA: 1.87 m2 Heart Rate: bpm BP: 163 / 69 mmHg Support Dba: Referring MD: Kosta Gonzalez MD Symptoms: Stroke Study Quality: Fair ECG Rhythm: Sinus Conclusions: - Normal left ventricular size and systolic function. - Normal right ventricular cavity size and systolic function. - There is a small loculated pericardial effusion overlying the left ventricle. Findings Left Ventricle Normal left ventricular size and systolic function. There is moderately increased left ventricular wall thickness. The visually estimated ejection fraction is between 60-65%. There is no evidence of regional wall motion abnormalities. Diastolic function is indeterminate on the basis of available data. Right Ventricle Normal right ventricular cavity size and systolic function. Pericardium/Pleural There is a small loculated pericardial effusion overlying the left ventricle. Prior Study Comparison Changes noted compared to prior study dated: 03/07/2021. Small posterior pericardial effusion noted. Measurements 2D Linear Measurements IVSd: 1.24 0.6-0.9/0.6-1.0 cm LVIDd: 5.55 3.9-5.3/4.2-5.9 cm LVIDd Index: 2.97 2.4-3.2/2.2-3.1 cm/m2 LVIDs: 3.36 2.0-3.6 cm LVPWd: 1.22 0.7-1.1 cm LV Mass: 356.69 67-162/88-224 g LV Mass Index: 190.74 43-95/49-115 g/m2 2D Systolic Function EF 4C: 61.80 >55% EF 2C: 53.00 >55% EF BiP: 56.90 >55% Updated in Other Vendor System with Status of Final Toney Long MD electronically signed on 04/16/2021 7:04:10 PM with status of Final
[2021-04-16] MEDS: amLODIPine Besylate 10 MG TABLET PO (08:07)
[2021-04-16] MEDS: Pregabalin 25 MG CAPSULE PO ×2 (08:07→21:16)
[2021-04-16] MEDS: Bumetanide 1 MG TABLET 2 MG PO ×2 (08:07→19:29)
[2021-04-16] MEDS: Acetaminophen 325 MG TABLET 650 MG PO (08:07)
[2021-04-16] MEDS: oxyCODONE HCl Immed Release 5 MG TABLET PO ×3 (08:07→14:01)
[2021-04-16] MEDS: Heparin Sodium,Porcine 5,000 UNIT/ML VIAL 5000 UNIT SUBCUT ×2 (08:07→21:17)
[2021-04-16] MEDS: Aspirin 325 MG TABLET PO (08:07)
[2021-04-16] MEDS: Multivitamin TABLET 1 TAB PO (08:07)
[2021-04-16] MEDS: Cyanocobalamin (Vitamin B-12) 1,000 MCG TABLET 1000 MCG PO (08:07)
[2021-04-16] MEDS: hydrALAZINE HCl 50 MG TABLET 100 MG PO ×3 (08:08→21:16)
--- NOTE | 2021-04-16 10:56 | P.DS_ITS ---
DS: Providers Provider Date of Service: 04/16/21 Date of admission: 04/13/21 23:23 Date of discharge: 04/16/21 Primary care physician: Unknown Physician Admitting clinician: Kosta Gonzalez Attending physician on admission: Kosta Gonzalez Consults: 04/13/21 23:23 Consult to Neurology Routine Consulting Provider: [facility] Reason for consultation: Stroke 04/15/21 09:21 Consult to Cardiology Routine Consulting Provider: Noé Deal Reason for consultation: abnormal echo Has provider been notified: No Attending physician on discharge: Dorian Lucas Discharging clinician: Judit Gagnon DS: Diagnosis Discharge Diagnosis (1) Lumbar radiculopathy: Status: Acute DS: Medications Discharge Medications Home Medications: Home Medications Medication Instructions Recorded Confirmed amlodipine 10 mg tablet 10 mg PO DAILY 01/07/21 04/13/21 atorvastatin 40 mg tablet 40 mg PO BEDTIME 01/07/21 04/13/21 multivitamin with folic acid 400 1 tab PO DAILY 03/02/21 04/13/21 mcg tablet bumetanide 1 mg tablet 2 mg PO BID@0900,1800 04/13/21 04/13/21 Previous Rx's Medication Instructions Recorded miscellaneous medical supply #1 ea 10/17/20 miscellaneous medical supply #1 ea 12/26/20 cyanocobalamin (vitamin B-12) 1,000 mcg PO DAILY #0 tab 01/17/21 1,000 mcg tablet (Vitamin B-12) hydralazine 50 mg tablet 100 mg PO TID #0 tab 01/17/21 pregabalin 25 mg capsule (Lyrica) 25 mg PO BID #0 cap 01/17/21 insulin lispro 100 unit/mL See Protocol SUBCUT QIDACHS #10 ml 03/14/21 subcutaneous solution (Humalog U-100 Insulin) polyethylene glycol 3350 17 gram 17 g PO DAILY #30 ea 03/14/21 oral powder packet oxycodone 5 mg tablet 5 mg PO Q4H PRN #24 tab 04/16/21 DS: Summary Hospital Course Hospital Course: HP as per admitting provider 81-year-old [employer]EN[employer]SPE[employer] ONLY female with history of CKD, CHF, diabetes mellitus (insulin-dependent), hypertension, hyperlipidemia, who presented with acute onset whole-body weakness, headache.? History is from patient (via winemaker) and from ED notes. In the patient was recently hospitalized here and discharged on 03/14/2021 after being treated for CHF/hypoxia, cellulitis/abscess secondary to an IV (positive for MRSA).? She was discharged to a rehabilitation center, where she states that they did not really work on any upper or lower extremity strengthening.? She was discharged from this rehab to home today, where she experienced sudden onset whole-body weakness, as well as right-sided headache that was constant, 9/10 in intensity, never had this prior. She also points out to other issues including:? Right 3rd toe pain that started after someone pulled the sheath back and seemed to have dislodged her toenail.? Also she has been experiencing worsening lumbar back pain, she says she has been having back pain for months, but it has worsened recently.?Otherwise, she denies chest pain, shortness of breath, fever, chills, nausea or vomiting. In the ED, pertinent findings include:? Blood pressure as high as 168/71, hemoglobin 8.6, BUN 73, creatinine 2.92 (baseline around 2.8),.? CT of the brain without contrast revealed focal area of low attenuation in the right parietal lobe raising concern for possible evolving underlying infarct, this has newly developed since prior CT of September 2019 (please see official report for full details). The patient was treated with rectal aspirin.? She failed her bedside swallow evaluation in the ED.? She is being admitted for acute stroke, back pain, right toe pain . It was initially thought that patient had a CVA on brain CT however on MRI no infarction seen. She didn't have any significant stenosis of the carotids. She did have complaints of back pain which is chronic. 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 However, nonspecific metastatic disease could morales ve a similar appearance, She will need to follow up with neuro surgery as an outpatient. She has knee and foot pain as well secondary to arthritis. She will be sent home with prn oxycodone. Her daughter is aware of the plan. Time Spent with Patient Time attestation: Total time spent providing and/or coordinating discharge se rvices: Discharge coordination time: Greater than 30 minutes Quality: Stroke Does the patient have a stroke diagnosis?: No Physical Exam Vital Signs: Vital Signs: Last Vital Signs Temp 98.7 F 04/16/21 07:24 Pulse 80 04/16/21 07:24 Resp 20 04/16/21 07:24 BP 170/77 H 04/16/21 07:24 Pulse Ox 93 04/16/21 07:24 Body Mass Index 37.0 Appearing in no acute distress head is normocephalic atraumatic eyes pupils are PERRLA sclera is anicteric mouth throat mucous membranes are intact and moist neck is supple no lymphadenopathy, no JVD noted lung sounds are clear to auscultation heart regular rate rhythm, clear S1, S2 positive bowel sounds, abdomen is soft, nontender neuro patient is alert x3, no focal deficits Toe nails unkept, very long and hard, needs outpatient podiatry DS: Data Data Completed and Pending Completed studies during hospitalization [Text1]: Procedures Drainage of Right Upper Arm Subcutaneous Tissue and Fascia, Open Approach (03/03/21) Excision of Ascending Colon, Via Natural or Artificial Opening Endoscopic, Diagnostic (01/07/21) Excision of Duodenum, Via Natural or Artificial Opening Endoscopic, Diagnostic (01/07/21) Excision of Stomach, Pylorus, Via Natural or Artificial Opening Endoscopic, Diagnostic (01/07/21) Insertion of Infusion Device into Right Brachial Vein, Percutaneous Approach (03/03/21) Transfusion of Nonautologous Red Blood Cells into Peripheral Vein, Percutaneous Approach (03/03/21) Labs on day of discharge: Laboratory Results - last 24 hr 04/15/21 04/15/21 04/15/21 11:14 16:06 20:17 POC Glucose 138 H 254 H 240 H 04/15/21 04/16/21 21:58 07:09 POC Glucose 204 H 112 Discharge Plan Discharge Anticipated Discharge Date/Time: 04/16/21 09:09 Patient Disposition: Home, Self-Care Discharge Diagnosis: Back pain, lumbar radiculopathy Referrals: [facility] machine operator [facility] [Other] - 1 Week Mechelle Tejeda MD [Physician] - 1 Week Physician,Unknown [Primary Care Provider] - 1 Week Discharge Medications: New oxycodone 5 mg tablet 5 mg PO Q4H PRN (Reason: pain) Qty: 24 RF: 0 Continued (DME) miscellaneous medical supply Misc See Rx Instructions .MEDSUPPLY Qty: 1 RF: 0 multivitamin with folic acid 400 mcg tablet 1 tab PO DAILY RF: 0 polyethylene glycol 3350 17 gram Powder In Packet 17 g PO DAILY Qty: 30 RF: 0 insulin lispro [Humalog U-100 Insulin] 100 unit/mL Solution See Protocol unit subcut QIDACHS Qty: 10 RF: 0 bumetanide 1 mg tablet 2 mg PO BID@0900,1800 RF: 0 atorvastatin 40 mg Tablet 40 mg PO BEDTIME RF: 0 amlodipine 10 mg Tablet 10 mg PO DAILY RF: 0 hydralazine 50 mg Tablet 100 mg PO TID Qty: 0 RF: 0 pregabalin [Lyrica] 25 mg Capsule 25 mg PO BID Qty: 0 RF: 0 cyanocobalamin (vitamin B-12) [Vitamin B-12] 1,000 mcg Tablet 1,000 mcg PO DAILY Qty: 0 RF: 0 (DME) miscellaneous medical supply Misc See Rx Instructions .MEDSUPPLY Qty: 1 RF: 0 Discharge Orders: Discharge Order (Routine); Ordered 04/16/21 Ordered By: Judit Gagnon Diet: advance to usual diet Activity on Discharge: As tolerated Stand Alone Forms: Patient Portal Discharge page Care Plan Goals: resolution of back pain Health Concerns: Back pain, lumbar radiculopathy Plan of Treatment: Needs neurosurgery follow up. May schedule appointment with [facility] neurosurgery You DID NOT have a stroke. An MRI was done to verify this. Assessment: See discharge summary
[2021-04-16 10:58] LABS: Glucose, Whole Blood 205 mg/dL (60-115)
--- NOTE | 2021-04-16 11:23 | MHC.CM.PN ---
pt dcd home today will resum e servceis thru [facility] and nursing
--- NOTE | 2021-04-16 11:25 | MHC.CM.PN ---
pt dcd home with [facility] al[facility]to notified of pts dc
[2021-04-16] MEDS: Insulin Lispro 100 UNIT/ML 3 ML VIAL SUBCUT ×2 (11:35→21:17)
--- NOTE | 2021-04-16 12:39 | MHC.SL.SWA ---
Speech Pathologist Impression: Risk of Aspiration Dysphasia Diet Status: No Change Liquid Consistency and Strategies for Safe Swallow: Liquid Intake Recommendation: Thin Liquid Intake Strategies: Small Sips Solid Food Consistency: Dietary Recommendations: Regular Additional Modifications to Solid Foods: Recommend follow up to ensure tolerance of unmodified diet and speech/language screening Oral Medication Intake: Whole with Liquid Compensatory Strategies and Precautions to be Taken for Safe Swallow: Sitting Upright (90 deg) No Straw Small Bites and Sips Alternate Liquids/Solids Rate of Ingestion Change Supervision While Eating and Drinking for Safe Swallow: Intermittent Supervision Foods to Avoid: Swallowing Recommended Treatments: Compens. Strategy Educat. Recommendation for Speech: Outpatient Speech Therapy Inpatient Speech Therapy Tetryl Blender Operator Clinican/Clinical Fellow: No Supervisory Statement: I have reviewed and agree with the student/clinical fellow's documentation: N/A Speech Language Pathologist: Suyapa Osborn M.A., CCC-GRIEVANCE COORDINATOR
--- NOTE | 2021-04-16 12:49 | MHC.CM.PN ---
pt this morning recomemnding str pt and john agree referrals made
--- NOTE | 2021-04-16 15:07 | PM.IMPN ---
Progress Note: A&P (1) Lumbar radiculopathy: Status: Acute Assessment and Plan: his an 81 yo F admitted for acute Cva No indication of CVA seen on CT scan, not seen on MRI speech/swallow eval PT/OT rec STR Neurology following carotid doppler showing minimal stenosis bilat echo showing akinesis and elevated pressures, cardiology consult Diabetes cardiac diet sliding scale Back pain secondary to lumbar radiculopathy Seen and evaluated by neuro with rec for neurosurg o/p follow up as o/p MRI showing no acute, no?acute intracranial abnormality. 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 CKD4 baseline monitor Toe pain (see admission H&P for details) mild redness, monitor DISPO likely discharge tomorrow to STR Full Code DVT pptx, subcut. heparin Subjective Subjective Date of Service: 04/16/21 Interval History: Follow up back and foot pain better today Physical Exam Vital Signs: Vital Signs: Last Vital Signs Temp 98.5 F 04/16/21 14:56 Pulse 77 04/16/21 14:56 Resp 20 04/16/21 14:56 BP 149/69 H 04/16/21 14:56 Pulse Ox 94 04/16/21 14:56 Body Mass Index 37.0 Appearing in no acute distress lung sounds are clear to auscultation heart regular rate rhythm, clear S1, S2 positive bowel sounds, abdomen is soft, nontender neuro patient is alert x3, no focal deficits Long toe nails, needs podiatry Objective Data Current Medications Generic Name Dose Route Start Last Admin Trade Name Blayne PRN Reason Stop Dose Admin Acetaminophen 650 mg 04/14/21 21:59 04/16/21 08:07 Acetaminophen 325 Mg Tablet PO 650 mg Q6H PRN Administration Pain, Mild (Pain Scale 1-3) Amlodipine Besylate 10 mg 04/15/21 09:00 04/16/21 08:07 Amlodipine Besylate 10 Mg Tablet PO 10 mg DAILY PALOMO Administration Protocol Aspirin 325 mg 04/15/21 10:00 04/16/21 08:07 Aspirin 325 Mg Tablet PO 325 mg DAILY PALOMO Administration Atorvastatin Calcium 40 mg 04/15/21 21:00 04/15/21 22:01 Atorvastatin Calcium 40 Mg Tablet PO 40 mg BEDTIME PALOMO Administration Bumetanide 2 mg 04/15/21 09:00 04/16/21 08:07 Bumetanide 1 Mg Tablet PO 2 mg BID@0900,1800 PALOMO Administration Protocol Cyanocobalamin 1,000 mcg 04/15/21 09:00 04/16/21 08:07 Cyanocobalamin (Vitamin B-12) 1,000 Mcg Tablet PO 1,000 mcg DAILY PALOMO Administration Dextrose 25 gm 04/13/21 23:39 Dextrose 50 % 25 Gm/50 Ml Vial IVPUSH Q15M PRN per Hypoglycemia Standing Ord. Protocol Glucose 15 gm 04/13/21 23:39 Glucose Gel 15 Gm Gel..Gram. PO Q15M PRN per Hypoglycemia Standing Ord. Protocol Heparin Sodium (Porcine) 5,000 unit 04/14/21 10:00 04/16/21 08:07 Heparin Sodium,Porcine 5,000 Unit/Ml Vial SUBCUT 5,000 unit Q12H PALOMO Administration Hydralazine HCl 100 mg 04/15/21 09:00 04/16/21 14:01 Hydralazine Hcl 50 Mg Tablet PO 100 mg TID PALOMO Administration Protocol Insulin Human Lispro 0 unit 04/15/21 07:30 04/16/21 11:35 Insulin Lispro 100 Unit/Ml 3 Ml Vial SUBCUT 4 unit QIDACHS PALOMO Administration Protocol Multivitamins/Vitamin C 1 tab 04/15/21 09:00 04/16/21 08:07 Multivitamin Tablet PO 1 tab DAILY PALOMO Administration Oxycodone HCl 5 mg 04/16/21 09:44 04/16/21 14:01 Oxycodone Hcl Immed Release 5 Mg Tablet PO 5 mg Q4H PRN Administration pain Pharmacy Consult 1 each 04/13/21 18:39 Consult Rx Perform Med Rec MISCELLANE ONCE PRN Consult order Pregabalin 25 mg 04/15/21 09:00 04/16/21 08:07 Pregabalin 25 Mg Capsule PO 25 mg BID PALOMO Administration Labs CBC & Chem 7: 04/14/21 06:21 04/14/21 06:21 Labs: Laboratory Results - last 24 hr 04/15/21 04/15/21 04/15/21 16:06 20:17 21:58 POC Glucose 254 H 240 H 204 H 04/16/21 04/16/21 07:09 10:54 POC Glucose 112 205 H Quality Stroke Does the patient have a stroke diagnosis?: No Reason for No Anti-thrombotic by Day Two: N/A - Med Ordered VTE Prior VTE?: No VTE Risk Level:: Medical - low VTE Device Contraindication: N/A - Device Ordered VTE Drug Contraindication: Treatment Not Indicated
--- NOTE | 2021-04-16 16:18 | MHC.STROKE ---
[id number] I MET WITH THE PATIENT AND HAD THE COATING MACHINE FEEDER PRESENT. WE DISCUSSED HER TEST RESULTS, I DID EDUCATE HER ON HER STROKE RISK FACTORS AND PROVIDED REASSURANCE. MIKE NOTIFIED ME THAT SHE IS PLANNING ON GOING BACK TO REHAB TOMORROW. I DID RELAY THIS TO HER.
[2021-04-16 16:20] LABS: Glucose, Whole Blood 142 mg/dL (60-115)
--- NOTE | 2021-04-16 16:42 | MHC.CLN ---
NUTRITION/DIET PATIENT WITH DX DM AND CHF. CHANGED DIET TO DIABETIC 1800 KCAL, CARDIAC.
[2021-04-16 16:56] LABS: COVID-19 Test Negative (Negative)
[2021-04-16 20:16] LABS: Glucose, Whole Blood 196 mg/dL (60-115)
[2021-04-16] MEDS: Atorvastatin Calcium 40 MG TABLET PO (21:17)
[2021-04-17] VITALS (7 sets, daily range): BP systolic 160–178; BP diastolic 71–77; PULSE 83–90; RESP 20; TEMP 35.5–37.8; O2SAT 94–96; BMI 37.0
[2021-04-17 07:12] LABS: Glucose, Whole Blood 119 mg/dL (60-115)
[2021-04-17] MEDS: Bumetanide 1 MG TABLET 2 MG PO (10:12)
[2021-04-17] MEDS: hydrALAZINE HCl 50 MG TABLET 100 MG PO ×2 (10:12→14:46)
[2021-04-17] MEDS: Heparin Sodium,Porcine 5,000 UNIT/ML VIAL 5000 UNIT SUBCUT (10:12)
[2021-04-17] MEDS: amLODIPine Besylate 10 MG TABLET PO (10:13)
[2021-04-17] MEDS: Pregabalin 25 MG CAPSULE PO (10:13)
[2021-04-17] MEDS: Cyanocobalamin (Vitamin B-12) 1,000 MCG TABLET 1000 MCG PO (10:13)
[2021-04-17] MEDS: Losartan Potassium 50 MG TABLET 100 MG PO (10:14)
[2021-04-17] MEDS: Multivitamin TABLET 1 TAB PO (10:14)
[2021-04-17] MEDS: Aspirin 325 MG TABLET PO (10:14)
[2021-04-17] MEDS: Acetaminophen 325 MG TABLET 650 MG PO (10:19)
[2021-04-17 11:35] LABS: Glucose, Whole Blood 190 mg/dL (60-115)
--- NOTE | 2021-04-17 12:01 | MHC.CM.PN ---
pts [facility]
--- NOTE | 2021-04-17 12:07 | MHC.SL.SWA ---
Speech Pathologist Impression: Risk of Aspiration Dysphasia Diet Status: No Change Liquid Consistency and Strategies for Safe Swallow: Liquid Intake Recommendation: Thin Liquid Intake Strategies: Unrestricted Solid Food Consistency: Dietary Recommendations: Regular Oral Medication Intake: Whole with Liquid Compensatory Strategies and Precautions to be Taken for Safe Swallow: Sitting Upright (90 deg) Small Bites and Sips Rate of Ingestion Changes Alternating Solids/Liquids Supervision While Eating and Drinking for Safe Swallow: Intermittent Supervision Swallowing Recommended Treatments: Compens. Strategy Educat. Recommendation for Speech: Outpatient Speech Therapy Comment: No overt s/s of aspiration observed with thin liquids 04/16 and 04/17 with cup sips or straw sips. Adequate mastication and oral clearance of regular solids noted. No reported concerns from patient or nursing regarding comprehension, communication or word-finding abilities at this time. Inpatient ST no longer warranted, please re-refer if condition changes. Oupatient speech/language evaluation recommended once discharged. Sticker Machine Operator Clinican/Clinical Fellow: No Supervisory Statement: I have reviewed and agree with the student/clinical fellow's documentation: N/A Speech Language Pathologist: Yue Renee M.A., CCC-ADVERTISING SPACE CLERK
[2021-04-17] MEDS: Insulin Lispro 100 UNIT/ML 3 ML VIAL SUBCUT (12:39)
--- NOTE | 2021-04-17 14:51 | MHC.SLORD ---
Speech Language Pathology Order Status: Per patient and nursing report, reportedly no concerns for communication or comprehension at this time. Patient has been able to communicate her needs in Bruneian without reported incidents of word-finding episodes. Inpatient speech/language evaluation not warranted at this time. Recommended that patient pursue speech/language evaluation in the outpatient setting to assess any deficits. Please re-refer if condition changes.
== END 2021-04-17 15:30 | DRG 552 ==
LOC: HO.ED 21:15 → HO.EDOVER 04-14 01:50 → HO.IMC 04-14 13:52
PROVIDERS: Internal Medicine; Nurse Practitioner Acute Care; Physician Assistant; Admitting Provider Internal Medicine; Emergency Provider Emergency Medicine; Visit Provider Family Medicine
DX: M54.16 Radiculopathy, lumbar region (principal); I13.0 Hypertensive heart and chronic kidney disease with heart failure and stage 1 through stage 4 chronic kidney disease, or unspecified chronic kidney disease; N18.4 Chronic kidney disease, stage 4 (severe); M48.9 Spondylopathy, unspecified; E78.5 Hyperlipidemia, unspecified; K21.9 Gastro-esophageal reflux disease without esophagitis; I50.9 Heart failure, unspecified; E11.22 Type 2 diabetes mellitus with diabetic chronic kidney disease; S91.204A Unspecified open wound of right lesser toe(s) with damage to nail, initial encounter; X58.XXXA Exposure to other specified factors, initial encounter; Z20.822 Contact with and (suspected) exposure to COVID-19; Z79.4 Long term (current) use of insulin; Z79.899 Other long term (current) drug therapy
CPT/HCPCS: 36415; 70450; 70551; 70552; 71045; 72125; 72148; 72149; 80048; 80053; 80061; 81001; 82947; 83880; 84484; 85025; 87635; 92610; 93308; 93880; 97110; 97163; 97167; 99223; 99285

== ENCOUNTER 2021-04-21 13:25 | Emergency (ER) | payer MEDICARE, SELFPAY ==
--- NOTE | 2021-04-21 | ECG_ITS ---
Test Reason : CHEST PAIN Blood Pressure : / mmHG Vent. Rate : 091 BPM Atrial Rate : 091 BPM P-R Int : 148 ms QRS Dur : 096 ms QT Int : 372 ms P-R-T Axes : 057 -37 056 degrees QTc Int : 457 ms Normal sinus rhythm Left axis deviation Abnormal ECG When compared with ECG of 06-MAR-2021 15:34, Nonspecific T wave abnormality no longer evident in Anterior leads Referred By: Generic ED Physician Electronically Signed By:JOSY ALBERTS
--- NOTE | ~2021-04-21 | XR_ITS ---
EXAMINATION: XR CHEST CLINICAL INFORMATION: Chest pain COMPARISON: None TECHNIQUE: Frontal view of the chest was obtained. FINDINGS: Cardiac silhouette is normal in size. Atherosclerotic disease of the aortic arch. The lungs are well aerated. There is no lobar consolidation. No pleural effusion or pneumothorax. Mild degenerative changes of the spine. XR/XR chest 1V IMPRESSION: No acute pulmonary pathology.
[2021-04-21 13:35] VITALS: BP 136/70; BP 139/61; PULSE 90; PULSE 92; RESP 17; TEMP 36.8; O2SAT 97; BMI 32.5
--- NOTE | 2021-04-21 13:40 | ED_ITS ---
HPI - Chest Pain General Chief Complaint: Chest Pain Stated Complaint: CHEST PAIN Time Seen by Provider: 04/21/21 13:40 Source: patient Mode of arrival: EMS Limitations: no limitations History of Present Illness HPI narrative: 81-year-old female presents from assisted status post cerebral vascular accident earlier this month, with left-sided chest pain radiating into her left arm for 3 days. Patient states the chest pain is intermittent, the pain is 8/10, and is worse with moving her left arm. No nausea vomiting, no shortness of breath. Patient is an insulin-dependent diabetic with a past medical history of chronic kidney disease, acute kidney injury, MRSA cellulitis, peripheral vascular disease, hypertension and hyperlipidemia. MD complaint: chest pain Onset (ago): day(s) (3) Timing of current episode: episodic Onset: during rest Pain location: left chest Pain radiation: left arm Severity: severe Pain scale (0-10): 8 Quality: sharp Relieving factors: nothing Exacerbating factors: movement Treatment prior to arrival: aspirin Risk Factors Coronary artery disease risk factors: diabetes, hyperlipidemia and hypertension Related Data On Oral Contraceptives: No Home Medications Medication Instructions Recorded Confirmed amlodipine 10 mg tablet 10 mg PO DAILY 01/07/21 04/13/21 atorvastatin 40 mg tablet 40 mg PO BEDTIME 01/07/21 04/13/21 multivitamin with folic acid 400 1 tab PO DAILY 03/02/21 04/13/21 mcg tablet bumetanide 1 mg tablet 2 mg PO BID@0900,1800 04/13/21 04/13/21 Previous Rx's Medication Instructions Recorded miscellaneous medical supply #1 ea 10/17/20 miscellaneous medical supply #1 ea 12/26/20 cyanocobalamin (vitamin B-12) 1,000 mcg PO DAILY #0 tab 01/17/21 1,000 mcg tablet (Vitamin B-12) hydralazine 50 mg tablet 100 mg PO TID #0 tab 01/17/21 pregabalin 25 mg capsule (Lyrica) 25 mg PO BID #0 cap 01/17/21 insulin lispro 100 unit/mL See Protocol SUBCUT QIDACHS #10 ml 03/14/21 subcutaneous solution (Humalog U-100 Insulin) polyethylene glycol 3350 17 gram 17 g PO DAILY #30 ea 03/14/21 oral powder packet losartan 50 mg tablet 100 mg PO DAILY #60 tab 04/17/21 oxycodone 5 mg tablet 5 mg PO Q4H PRN #18 tab 04/17/21 Allergies Allergy/AdvReac Type Severity Reaction Status Date / Time Iodinated Contrast Media Allergy Unknown UNKNOWN Verified 12/26/20 13:27 [IODINATED CONTRAST MEDIA] Review of Systems Constitutional: Constitutional: Denies chills, Denies fatigue, Denies fever(s), Denies headache(s), Denies malaise and Denies weakness Eyes: Eyes: Denies diplopia ENT: Denies dizziness, Denies otalgia, Denies headache(s) and Denies sore throat Cardiovascular: Cardiovascular: Reports chest pain, Reports chest pain at rest, Denies Epigastric Pain, Denies pedal edema, Denies irregular heart rhythm, Denies leg edema, Denies lightheadedness, Denies Loss of Consciousness, Reports radiating jaw, neck or arm pain, Denies palpitations and Denies dyspnea Respiratory: Respiratory: Denies chest congestion, Denies cough and Denies dyspnea Gastrointestinal: Gastrointestinal: Denies abdominal pain, Denies hematochezia, Denies constipation, Denies diarrhea and Denies vomiting Genitourinary: Genitourinary: Reports no additional female genitourinary complaints Musculoskeletal: Comments: burning feeling on sacrum Integumentary/Breasts: Skin/Breast: Reports wounds (decubitus ulcer) Neurologic: Denies dizziness, Denies headache(s) and Denies weakness Endocrine: Endocrine: Denies fatigue and Denies palpitations PMFSH Past Medical History Medical History Abscess of forearm, right Acute on chronic diastolic heart failure Acute respiratory failure with hypoxia Anemia B12 deficiency Chronic renal insufficiency CKD (chronic kidney disease) Congestive heart failure Diabetes Femoral artery stenosis Gram-positive bacteremia High cholesterol Hypertension Hypoxia Lower extremity edema Psoriasis of scalp PVD (peripheral vascular disease) Surgical History History of female sterilization History of shoulder surgery Family History Family History Father No problems noted. Mother No problems noted. Social History Social History Household Members: None Household Members Other:: Daughter Housing: House Do you presently have visiting nurse or other home services: Yes Alcohol intake: never Patient Tobacco Use Status: Never used Tobacco Use of substances other than those prescribed or required for medical reasons: No Advance Directives: Yes Advance Directives on File: Yes Advance Directives Date on File: 01/08/21 service: No Current occupational status: retired and disabled Physical Exam Vital Signs: Vital Signs: Last Vital Signs Temp 98.3 F 04/21/21 16:00 Pulse 77 04/21/21 16:00 Resp 18 04/21/21 16:00 BP 147/51 H 04/21/21 16:00 Pulse Ox 97 04/21/21 16:00 Body Mass Index 32.5 Const: General: no acute distress, alert and awake Nutritional Appearance: obese morbidly obese Orientation/consciousness: patient oriented x3 Limitations: no limitations HENMT: Head: Yes normal to inspection, Yes normocephalic and Yes atraumatic Ears: hearing grossly normal bilaterally General nose exam: Normal external nose present Face and sinus: Yes normal facial exam Mouth: Normal oral and palatal mucosa present Throat: Yes posterior oropharynx normal Eyes: Pupils: Equal, round and reactive pupils present EOM: EOMs intact bilaterally Resp: Effort & Inspection: normal respiratory effort and able to speak in complete sentences Auscultation: clear to auscultation bilaterally, no crackles, no rales, no rhonchi and no wheezes Cardio: Rate: regular rate Rhythm: regular rhythm Heart sounds: S1 normal heart sound present and S2 normal heart sound present GI: Inspection: Yes distended, Yes Abdominal panniculus present and Yes obesity Palpation (GI): Soft to palpation, not firm, nontender, no guarding and not rigid Percussion: Yes normal to percussion Auscultation: normal bowel sounds Rectal Exam - Female: visual inspection normal, normal sphincter tone, No fecal impaction, No Anal fissure(s) present, heme negative stool, No hemorrhoids and No tenderness Skin: Other: 1 cm stage I decubitus ulcer General skin exam: ecchymosis (prior IV sites) Wounds: wounds noted ulceration posterior sacrum Neuro: General: patient oriented x3, tone normal and moves all extremities Cranial nerves: Yes Equal, round and reactive pupils present Course Course Course Narrative: 81-year-old female presents for 3 days of left chest pain that is reproducible when she moves her left arm. Patient is in rehab for recent stroke, patient has chronic pain. On exam, patient has stable vitals and is afebrile. Her labs show she is anemic with an H&H of 7.9 and 24.4, which is near her baseline. Rectal exam performed, patient has negative occult stool claudia t. She denies rectal bleeding or vomiting blood. Creatinine is 2.9, again this is her baseline. Chest x-ray shows no acute pathology, EKG shows no ischemia. Initial troponin 9.5. Will repeat troponin in [address] case with Dr Wilks, who did see patient, and he thought the patient could go back to her nursing facility if her repeat troponin was not elevated Reevaluation(s) Reevaluation #1: Repeat troponin 11.1, not a significnt change. Patient's chest pain is resolved. Sent patient home with return precautions. MDM - Chest Pain Lab Data Result diagrams: 04/21/21 14:21 04/21/21 14:21 Labs: Lab Results 04/21/21 04/21/21 04/21/21 Range/Units 14:21 14:21 14:21 WBC 8.7 (4.8-10.8) X10*3/uL RBC 2.70 L (4.20-5.50) X10*6/uL Hgb 7.9 L (12.0-16.0) g/dl Hct 24.4 L (37-47) % MCV 90.4 (80-98) fL MCH 29.3 (27.0-33.0) pg MCHC 32.4 (31.0-35.0) g/dl RDW 15.2 (11.0-16.0) % Plt Count 276 (160-400) X10*3/uL MPV 10.3 (9.4-12.3) fL Immature Gran % (Auto) 0.6 H (0.0-0.4) % Neut % (Auto) 78.2 H (45-73) % Lymph % (Auto) 11.6 L (20-40) % [place] % (Auto) 6.9 (2-11) % Eos % (Auto) 2.4 (0-4) % Baso % (Auto) 0.3 (0-2) % Lymph # (Auto) 1.0 L (1.2-4.9) X10*3/uL [place] # (Auto) 0.6 (0.1-1.2) X10*3/uL Eos # (Auto) 0.2 (0.0-0.4) X10*3/uL Baso # (Auto) 0.0 (0.0-0.2) X10*3/uL Abs Immat Gran (auto) 0.05 H (0.00-0.03) X10*3/uL Absolute Neuts (auto) 6.8 (2.0-8.3) X10*3/uL Absolute Nucleated RBC 0.000 (0.0-0.012) X10*3/uL Nucleated RBC % (auto) 0.0 (0.0-0.2) /100WBC Sodium 137 (135-145) mmol/L Potassium 4.4 (3.3-5.1) mmol/L Chloride 100 (96-108) mmol/L Carbon Dioxide 24 (22-29) mmol/L Anion Gap 17 (12-20) BUN 76 H (9-16) mg/dL Creatinine 2.90 H (0.5-1.4) mg/dL Estim Creat Clear Calc 15.0 Estimated GFR 16 Random Glucose 209 H D (60-115) mg/dL Calcium 9.1 (8.4-10.2) mg/dL Total Bilirubin 0.2 (0.0-1.0) mg/dL AST 13 (5-31) U/L ALT 12 (0-31) U/L Alkaline Phosphatase 69 (39-117) U/L Troponin I High Sens 9.5 (<3.5-17.0) ng/L Total Protein 7.3 (6.5-8.0) g/dL Albumin 3.5 (3.5-5.0) g/dL Stool Occult Blood (NEGATIVE) 04/21/21 04/21/21 Range/Units 15:18 18:07 WBC (4.8-10.8) X10*3/uL RBC (4.20-5.50) X10*6/uL Hgb (12.0-16.0) g/dl Hct (37-47) % MCV (80-98) fL MCH (27.0-33.0) pg MCHC (31.0-35.0) g/dl RDW (11.0-16.0) % Plt Count (160-400) X10*3/uL MPV (9.4-12.3) fL Immature Gran % (Auto) (0.0-0.4) % Neut % (Auto) (45-73) % Lymph % (Auto) (20-40) % [place] % (Auto) (2-11) % Eos % (Auto) (0-4) % Baso % (Auto) (0-2) % Lymph # (Auto) (1.2-4.9) X10*3/uL [place] # (Auto) (0.1-1.2) X10*3/uL Eos # (Auto) (0.0-0.4) X10*3/uL Baso # (Auto) (0.0-0.2) X10*3/uL Abs Immat Gran (auto) (0.00-0.03) X10*3/uL Absolute Neuts (auto) (2.0-8.3) X10*3/uL Absolute Nucleated RBC (0.0-0.012) X10*3/uL Nucleated RBC % (auto) (0.0-0.2) /100WBC Sodium (135-145) mmol/L Potassium (3.3-5.1) mmol/L Chloride (96-108) mmol/L Carbon Dioxide (22-29) mmol/L Anion Gap (12-20) BUN (9-16) mg/dL Creatinine (0.5-1.4) mg/dL Estim Creat Clear Calc Estimated GFR Random Glucose (60-115) mg/dL Calcium (8.4-10.2) mg/dL Total Bilirubin (0.0-1.0) mg/dL AST (5-31) U/L ALT (0-31) U/L Alkaline Phosphatase (39-117) U/L Troponin I High Sens 11.1 (<3.5-17.0) ng/L Total Protein (6.5-8.0) g/dL Albumin (3.5-5.0) g/dL Stool Occult Blood NEGATIVE (NEGATIVE) ECG Data ECG #1: Interpretation: Normal sinus with a rate of 91, left axis deviation. The CO interval 148, QRS 96, QTC 457. No ST elevations or depressions, no T-wave inversion Discharge Plan Discharge Clinical Impression: Chest pain Qualifiers: Chest pain type: unspecified Qualified Code(s): R07.9 - Chest pain, unspecified Patient Disposition: Home, Self-Care Instructions: Chest Pain (ED) Additional Instructions: Please call your primary care provider for follow-up appointment from today's visit. We did not find any reason for your chest pain today. Please return if you have worsening chest pain, shortness of breath, nausea vomiting, or any other new or concerning symptoms Llame a morales proveedor de atenci?n primaria para programar qiana elaine de seguimiento de la visita de kamaljitfiona. [place] no encontramos ninguna nita?n para morales dolor de pecho. Regrese si tiene un dolor en el pecho que empeora, dificultad para respirar, n?useas, v?mitos o cualquier otro s?ntoma nuevo o preocupante Prescriptions: No Action (DME) miscellaneous medical supply Misc See Rx Instructions .MEDSUPPLY Qty: 1 RF: 0 multivitamin with folic acid 400 mcg tablet 1 tab PO DAILY RF: 0 polyethylene glycol 3350 17 gram Powder In Packet 17 g PO DAILY Qty: 30 RF: 0 insulin lispro [Humalog U-100 Insulin] 100 unit/mL Solution See Protocol unit subcut QIDACHS Qty: 10 RF: 0 bumetanide 1 mg tablet 2 mg PO BID@0900,1800 RF: 0 losartan 50 mg Tablet 100 mg PO DAILY Qty: 60 RF: 0 oxycodone 5 mg tablet 5 mg PO Q4H PRN (Reason: pain) Qty: 18 RF: 0 atorvastatin 40 mg Tablet 40 mg PO BEDTIME RF: 0 amlodipine 10 mg Tablet 10 mg PO DAILY RF: 0 hydralazine 50 mg Tablet 100 mg PO TID Qty: 0 RF: 0 pregabalin [Lyrica] 25 mg Capsule 25 mg PO BID Qty: 0 RF: 0 cyanocobalamin (vitamin B-12) [Vitamin B-12] 1,000 mcg Tablet 1,000 mcg PO DAILY Qty: 0 RF: 0 (DME) miscellaneous medical supply Misc See Rx Instructions .[facility] RF: 0 Print Language: German
[2021-04-21 13:58] VITALS: TEMP 37.3
[2021-04-21 14:25] LABS: MANUAL DIFF FLAG NO
[2021-04-21 14:28] LABS: Basophils Percent Auto 0.3 % (0-2); Eosinophils Absolute Auto 0.2 X10*3/uL (0.0-0.4); Eosinophils Percent Auto 2.4 % (0-4); Hematocrit 24.4 % (37-47); Hemoglobin 7.9 g/dl (12.0-16.0); Imm Gran Abs Auto 0.05 X10*3/uL (0.00-0.03); Imm Gran Pct Auto 0.6 % (0.0-0.4); Lymphocytes Percent Auto 11.6 % (20-40); Mean Corpuscular HGB Conc 32.4 g/dl (31.0-35.0); Mean Corpuscular Hemoglobin 29.3 pg (27.0-33.0); Mean Corpuscular Volume 90.4 fL (80-98); Mean Platelet Volume 10.3 fL (9.4-12.3); Monocytes Absolute Auto 0.6 X10*3/uL (0.1-1.2); Monocytes Percent Auto 6.9 % (2-11); Neutrophils Absolute Auto 6.8 X10*3/uL (2.0-8.3); Neutrophils Percent Auto 78.2 % (45-73); Platelet Count 276 X10*3/uL (160-400); Red Cell Distribution Width 15.2 % (11.0-16.0); White Blood Count 8.7 X10*3/uL (4.8-10.8)
[2021-04-21 14:56] LABS: Troponin-I High Sensitivity 9.5 ng/L (<3.5-17.0)
--- NOTE | 2021-04-21 14:56 | PC.NURSE ---
this nurse assisted provider with rectal exam, pt tolerated well
[2021-04-21 15:02] LABS: Alanine Aminotransferase 12 U/L (0-31); Albumin Level 3.5 g/dL (3.5-5.0); Alkaline Phosphatase 69 U/L (39-117); Anion Gap 17 (12-20); Aspartate Amino Transferase 13 U/L (5-31); Bilirubin Total 0.2 mg/dL (0.0-1.0); Blood Urea Nitrogen 76 mg/dL (9-16); Calcium 9.1 mg/dL (8.4-10.2); Carbon Dioxide 24 mmol/L (22-29); Chloride 100 mmol/L (96-108); Estimated Glomerular Filt Rate 16; Glucose Random 209 mg/dL (60-115); Potassium 4.4 mmol/L (3.3-5.1); Sodium 137 mmol/L (135-145); Total Protein 7.3 g/dL (6.5-8.0)
[2021-04-21 15:41] LABS: OBS Int Ctl Valid YES; OBS1 NEGATIVE (NEGATIVE)
[2021-04-21 16:00] VITALS: BP 147/51; PULSE 77; RESP 18; TEMP 36.8; O2SAT 97
[2021-04-21] MEDS: Acetaminophen 325 MG TABLET 650 MG PO (17:53)
--- NOTE | 2021-04-21 17:53 | PC.NURSE ---
patient medicated for pain per order
[2021-04-21 18:51] LABS: Troponin-I High Sensitivity 11.1 ng/L (<3.5-17.0)
--- NOTE | 2021-04-21 19:09 | PC.NURSE ---
report called to alberto leger
[2021-04-21 19:19] VITALS: BP 122/50; PULSE 72; RESP 18; TEMP 36.8; O2SAT 95
== END 2021-04-21 20:07 | disposition home or self-care (01) ==
PROVIDERS: Physician Assistant; Emergency Provider Emergency Medicine; PCP Internal Medicine
DX: R07.9 Chest pain, unspecified (principal); I13.0 Hypertensive heart and chronic kidney disease with heart failure and stage 1 through stage 4 chronic kidney disease, or unspecified chronic kidney disease; E11.22 Type 2 diabetes mellitus with diabetic chronic kidney disease; N18.9 Chronic kidney disease, unspecified; I50.9 Heart failure, unspecified; E78.5 Hyperlipidemia, unspecified; Z86.14 Personal history of Methicillin resistant Staphylococcus aureus infection; Z79.4 Long term (current) use of insulin; Z79.02 Long term (current) use of antithrombotics/antiplatelets; Z79.899 Other long term (current) drug therapy
CPT/HCPCS: 36415; 71045; 80053; 82272; 84484; 85025; 93005; 96374; 99284; 99285

== ENCOUNTER 2021-09-10 16:13 | Inpatient (IN) | payer MEDICARE, SELFPAY ==
[2021-09-10] VITALS (8 sets, daily range): BP systolic 139–163; BP diastolic 50–90; PULSE 68–82; RESP 15–20; TEMP 36.6–37.2; O2SAT 96; BMI 38.5
--- NOTE | ~2021-09-10 | CT_ITS ---
EXAMINATION: CT ABDOMEN AND PELVIS WITHOUT CONTRAST CLINICAL INFORMATION: Abdominal pain and constipation with history of chronic kidney disease COMPARISON: MRI lumbar spine 04/14/2021 TECHNIQUE: Multidetector volumetric imaging was performed from the superior aspect of the liver through the pubic symphysis. Sagittal and coronal reformatted images were obtained on the technologist's workstation. This CT examination was performed using dose optimization techniques as appropriate, variously including the following: *Automated exposure control *Adjustment of mA and/or kV according to patient size (this includes techniques or standardized protocols for targeted exams where dose is matched to indication/reason for exam; i.e. extremities or head) *Use of iterative reconstruction technique DLP: 1189 mGy-cm FINDINGS: LUNG BASES: The visualized lung bases are unremarkable aside from left basilar scarring. LIVER, GALLBLADDER, AND BILIARY TREE: The liver is normal in size, shape, and attenuation. No focal hepatic lesion or biliary ductal dilatation is present. The gallbladder contains multiple small layering calculi without evidence of gallbladder wall thickening, or obvious pericholecystic inflammatory changes. PANCREAS: Unremarkable. SPLEEN: Unremarkable. ADRENAL GLANDS: Unremarkable. KIDNEYS AND URETERS: Patient has crossed renal ectopia present with the left kidney in the right pelvis. The insertion of the ureter is on the left aspect of the bladder. The left kidney is nonrotated without masses, nephrolithiasis or hydronephrosis. The right kidney is slightly small. Intrarenal calcifications most likely vascular and not nephrolithiasis. There is an exophytic cortical mid right renal cyst, Bosniak class I. There is an additional Bosniak class II renal cyst present measuring 1.2 cm in the mid right kidney with a tiny bit of layering milk of calcium. No suspicious renal masses are seen. No hydronephrosis. BLADDER: Unremarkable. GASTROINTESTINAL TRACT: Moderate amount of stool is present throughout the colon with the largest amount in the rectosigmoid. No evidence of bowel obstruction. The small bowel is unremarkable. The appendix is is not seen. ABDOMINAL WALL: No significant hernia is appreciated. There is mild diastases of the rectus muscles with some minimal forward bulging. LYMPH NODES: No retroperitoneal lymphadenopathy. VASCULAR: Marked atherosclerotic changes present in the aorta and iliofemoral vessels along with branch vessels. No aneurysm. PELVIC VISCERA: An anteverted uterus, tip to the right is present with multiple calcifications consistent with old uterine fibroids. An abnormal adnexal mass is not seen. OSSEOUS STRUCTURES: Marked degenerative changes present in the spine. Compression fracture of T12 is present. 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 No new worrisome osseous lesions are seen. CT/CT abdomen pelvis wo con IMPRESSION: 1. An underlying etiology for the patient's abdominal pain and constipation has not been found. 2. Incidental note made of cholelithiasis without cholecystitis, crossed renal ectopia, moderate stool burden throughout the colon, severe atherosclerotic disease, but doubt fibroid uterus and unchanged left sacral nerve sheath tumor. Fleischner guidelines were followed.
--- NOTE | ~2021-09-10 | XR_ITS ---
EXAMINATION: XR CHEST CLINICAL INFORMATION: Anemia and left-sided chest pain. COMPARISON: None TECHNIQUE: 2 views of the chest were obtained. FINDINGS: The lungs are well-expanded with elevated right hemidiaphragm. No acute pneumonic process seen. Heart size is borderline enlarged with normal pulmonary vascularity. There is mild dorsal spine spondylosis.. XR/XR chest 2V IMPRESSION: No acute cardiopulmonary process seen.
--- NOTE | 2021-09-10 16:38 | ECG_ITS ---
Test Reason : Chest pain Blood Pressure : / mmHG Vent. Rate : 076 BPM Atrial Rate : 076 BPM P-R Int : 160 ms QRS Dur : 102 ms QT Int : 396 ms P-R-T Axes : 054 -35 053 degrees QTc Int : 445 ms Normal sinus rhythm Left axis deviation Abnormal ECG When compared with ECG of 21-APR-2021 13:39, No significant change was found Referred By: Shanna Frost Electronically Signed By:Toney Long
--- NOTE | 2021-09-10 16:50 | ED.CHESTPAIN ---
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 Apparently patient had basic labs done today and she was noted to have worsening anemia with an H&H of 6.4/20.5. And her creatinine and BUN were at 3.08 and 73 with a GFR of 15. Therefore they instructed the nurses to Sender to the emergency department if she developed any shortness of breath /chest pain or any distress. And patient reported she did have chest pain therefore they sent her here for further evaluation and treatment. Patient tells me that she started having chest pain yesterday. She also reports diffuse abdominal pain and constipation. She reports she has not had a bowel movement in 4-5 days. She denies any dizziness, focal weakness, headaches, changes in vision, nausea / vomiting, paresthesias, radiation of the chest pain, cough, sore throat, recent falls or trauma, shortness of breath or dyspnea on exertion, orthopnea, palpitations, black or bloody stools, diarrhea, rashes, dysuria, hematuria, abnormal vaginal discharge or any other symptoms complaints or concerns at this time. the patient is not on any blood thinners at this time. MD complaint: chest pain Pertinent past history: coronary artery disease Onset (ago): day(s) (2) Timing of current episode: constant Prior episodes: Yes Pain location: substernal and left chest Pain radiation: none Severity: mild Quality: aching Relieving factors: nothing Exacerbating factors: palpation Treatment prior to arrival: none Risk Factors Coronary artery disease risk factors: diabetes, hyperlipidemia and hypertension Thoracic aortic dissection risk factors: none Related Data On Oral Contraceptives: No Home Medications Medication Instructions Recorded Confirmed amlodipine 10 mg tablet 10 mg PO DAILY 01/07/21 09/10/21 atorvastatin 40 mg tablet 40 mg PO DAILY 01/07/21 09/10/21 multivitamin with folic acid 400 1 tab PO DAILY 03/02/21 09/10/21 mcg tablet bumetanide 1 mg tablet 2 mg PO BID@0900,1800 04/13/21 09/10/21 acetaminophen 325 mg tablet 650 mg PO Q6H PRN 09/10/21 09/10/21 amoxicillin 500 mg-potassium 1 tab PO BID 09/10/21 09/10/21 clavulanate 125 mg tablet folic acid 1 mg tablet 1 mg PO DAILY 09/10/21 09/10/21 Previous Rx's Medication Instructions Recorded miscellaneous medical supply #1 ea 10/17/20 miscellaneous medical supply #1 ea 12/26/20 cyanocobalamin (vitamin B-12) 1,000 mcg PO DAILY #0 tab 01/17/21 1,000 mcg tablet (Vitamin B-12) hydralazine 50 mg tablet 100 mg PO TID #0 tab 01/17/21 pregabalin 25 mg capsule (Lyrica) 25 mg PO BID #0 cap 01/17/21 losartan 50 mg tablet 100 mg PO DAILY #60 tab 04/17/21 oxycodone 5 mg tablet 5 mg PO Q4H PRN #18 tab 04/17/21 Allergies Allergy/AdvReac Type Severity Reaction Status Date / Time Iodinated Contrast Media Allergy Unknown UNKNOWN Verified 12/26/20 13:27 [IODINATED CONTRAST MEDIA] Review of Systems Review of Systems: Constitutional : No Weight loss, No Fever, No Chills, No Night Sweats, No Fatigue, No Malaise ENT/Mouth : No Hearing loss, No Ear Pain, No Nasal Congestion, No Sinus Pain, No Hoarseness, No sore throat, No Rhinorrhea, No Swallowing Difficulty Eyes: No Eye Pain, No Swelling, No Redness, No Foreign Body, No Discharge, No Vision Changes Cardiovascular : Positive chest pain, No SOB, No Dyspnea on Exertion, No Orthopnea, No Edema, No Palpitations Respiratory : No Cough, No Sputum, No Wheezing, No Smoke Exposure, No Dyspnea Gastrointestinal : positive abdominal pain and constipation, No Nausea, No Vomiting, No Diarrhea, No Hematochezia, No Melena Genitourinary : no irregular bleeding, No Dysuria, No Urinary Frequency, No Hematuria, No Urinary Incontinence, No Urgency, No Flank Pain, No Urinary Flow Changes, No Hesitancy Musculoskeletal : No joint pain, No Myalgias, No Joint Swelling Skin : No Skin Lesions, No rash Neuro : No Weakness, No Numbness, No Paresthesias, No Loss of Consciousness, No Dizziness, No Headache Psych : No Anxiety/Panic, No Depression, No SI/HI/AH/VH, No Social Issues, Heme/Lymph: No Bruising, No Bleeding,No Lymphadenopathy Endocrine : No Polyuria, No Polydipsia, No Temperature Intolerance Yes all other systems are reviewed and are negative [facility] Past Medical History Attestation statement: The following information was validated with the patient. Medical History Abscess of forearm, right Acute on chronic diastolic heart failure Acute respiratory failure with hypoxia Anemia B12 deficiency Chronic renal insufficiency CKD (chronic kidney disease) Congestive heart failure Diabetes Femoral artery stenosis Gram-positive bacteremia High cholesterol Hypertension Hypoxia Lower extremity edema Psoriasis of scalp PVD (peripheral vascular disease) Surgical History History of female sterilization History of shoulder surgery Family History Family History Father No problems noted. Mother No problems noted. Social History Social History Household Members: None Household Members Other:: Daughter Housing: House Do you presently have visiting nurse or other home services: Yes Alcohol intake: never Patient Tobacco Use Status: Never used Tobacco Advance Directives: Yes Advance Directives on File: Yes Advance Directives Date on File: 01/08/21 service: No Current occupational status: retired and disabled Physical Exam Vital Signs: Vital Signs: Last Vital Signs Temp 98.2 F 09/10/21 19:08 Pulse 70 09/10/21 19:08 Resp 20 09/10/21 19:08 BP 139/90 H 09/10/21 19:08 Pulse Ox 96 09/10/21 16:44 BMI result Body Mass Index 38.5 vital signs have been reviewed as normal and appeared to be correct. Blood pressure 156/58. Heart rate normal. Respiration rate normal. Temperature normal. Oxygen saturation normal. Appearance: Alert. Oriented X3. No acute distress. Ethiopian-speaking. Head: Normal external exam. Normocephalic. Atraumatic. Eyes: PERRLA. EOMI. Conjunctiva and sclera normal. Eyelids normal. ENT: EAC normal. TM's Normal. Pharynx normal. Uvula midline. Moist mucous membranes. No trismus noted. No drooling noted. No muffled voice noted. Neck: Normal inspection. Neck supple. FROM. No adenopathy. Thyroid Normal. No meningeal signs. No neck mass noted. CVS: Normal heart rate and rhythm. Heart sound normal. Pulses normal throughout. No murmurs/rales/gallops. Respiratory: No respiratory distress. Painless inspiration. Breath sounds normal. No wheezes/rales/rhonchi noted. Chest Mild tenderness palpation to left anterior upper chest wall. No rashes are noted. not consistent with flail chest. No crepitus is noted No accessory muscle usage noted or decreased air movement noted. Abdomen: Soft and mild diffuse tenderness throughout no point tenderness is noted. Bowel sounds normal in all 4 quadrants. No distention noted. No organomegaly noted. No visible injury noted. Negative Rovsing sign. Negative Lau sign. negative obturator's sign. Negative psoas sign. Back: No CVA tenderness. Full range of motion noted. No rashes/lesion/induration/fluctuance or signs of infection noted. Skin: Skin warm and dry. Normal skin color. Normal skin turgor. No rashes/lesions/lacerations noted. Extremities: Patient with lower extremity edema. No calf tenderness is noted. Extremities exhibit normal range of motion. Extremities nontender. Neuro: Oriented X 3. No new motor or sensory deficits. Patient at baseline. Vascular: + radial pulses/+ 2 distal pedal pulses/+2 dorsalis pedis b/l. Normal cap refill. No cyanosis noted to upper extremity nails and lower extremity toes nails. 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 Apparently patient had basic labs done today and she was noted to have worsening anemia with an H&H of 6.4/20.5. And her creatinine and BUN were at 3.08 and 73 with a GFR of 15. Patient tells me that she started having chest pain yesterday. She also reports diffuse abdominal pain and constipation. She reports she has not had a bowel movement in 4-5 days. Plan: Labs, chest x-ray, type and screen, CT scan abdomen pelvis without IV contrast, UA, COVID swab and re-evaluate. Reevaluation(s) Reevaluation #1: - Labs reviewed and revealed worsening anemia with an H/H of 6.7/21.0. Her baseline is usually an H&H of 7-8/23-26. her BUN and creatinine has worsened at 80/3.21. her baseline BUN and creatinine is usually 60-70/Cr at 2.8-2.9. her potassium is 5.3. Glucose 158. Troponin 52.6. Albumin 3.4. Otherwise all other labs are within normal limits. Stool occult performed and pending at this time. - I also ordered 1 pack of red blood cells and patient signed blood transfusion consent form for this at this time. - CXR WNL. - Therefore at this time patient will need a repeat troponin. Awaiting blood transfusion 1 pack of red blood cells ordered. Awaiting CT scan of abdomen and pelvis without IV contrast. Will re-evaluate possible plan to admit for worsening anemia with Acute NAHID from her baseline CKD to Dr. Potts Time: 18:06 Reevaluation #2: - Stool occult negative. CT scan abdomen and pelvis without IV contrast revealed chronic changes no acute processes noted. Patient still being admitted to Dr. Potts. Patient understands agrees with this plan. senior living was updated as well by the nurse. Time: 20:59 MDM - Chest Pain Medical Records Data Attestation: I reviewed the patient's medical records. Lab Data Attestation: I reviewed the patient's lab results. Result diagrams: 09/10/21 17:09 09/10/21 17:09 Labs: Lab Results 09/10/21 09/10/21 09/10/21 Range/Units 17:09 17:09 17:09 WBC 9.2 (4.8-10.8) X10*3/uL RBC 2.26 L (4.20-5.50) X10*6/uL Hgb 6.7 L* (12.0-16.0) g/dl Hct 21.0 L* (37.0-47.0) % MCV 92.9 (80.0-98.0) fL MCH 29.6 (27.0-33.0) pg MCHC 31.9 (31.0-35.0) g/dl RDW 13.7 (11.0-16.0) % Plt Count 239 (160-400) X10*3/uL MPV 10.7 (9.4-12.3) fL Immature Gran % (Auto) 4.4 H (0.0-0.4) % Neut % (Auto) 66.7 (45-73) % Lymph % (Auto) 18.6 L (20-40) % [place] % (Auto) 6.1 (2-11) % Eos % (Auto) 3.8 (0-4) % Baso % (Auto) 0.4 (0-2) % Lymph # (Auto) 1.7 (1.2-4.9) X10*3/uL [place] # (Auto) 0.6 (0.1-1.2) X10*3/uL Eos # (Auto) 0.4 (0.0-0.4) X10*3/uL Baso # (Auto) 0.0 (0.0-0.2) X10*3/uL Abs Immat Gran (auto) 0.40 H (0.00-0.03) X10*3/uL Absolute Neuts (auto) 6.1 (2.0-8.3) x10*3/uL Absolute Nucleated RBC 0.000 (0.0-0.012) X10*3/uL Nucleated RBC % (auto) 0.0 (0.0-0.2) /100WBC PT 11.5 (9.9-13.0) SEC INR 1.0 (0.9-1.1) Sodium 137 (135-145) mmol/L Potassium 5.3 H D (3.3-5.1) mmol/L Chloride 100 (96-108) mmol/L Carbon Dioxide 28 (22-29) mmol/L Anion Gap 14 (12-20) BUN 80 H (9-16) mg/dL Creatinine 3.21 H (0.5-1.4) mg/dL Estim Creat Clear Calc 14.2 Estimated GFR 14 Random Glucose 158 H (60-115) mg/dL Calcium 9.3 (8.4-10.2) mg/dL Magnesium 2.1 (1.6-2.6) mg/dL Total Bilirubin 0.3 (0.0-1.0) mg/dL AST 17 (5-31) U/L ALT 21 (0-31) U/L Alkaline Phosphatase 68 (39-117) U/L Troponin I High Sens (<3.5-17.0) ng/L Total Protein 7.2 (6.5-8.0) g/dL Albumin 3.4 L (3.5-5.0) g/dL Stool Occult Blood (NEGATIVE) COVID-19 ([facility]) (Negative) COVID-19 Clin Com Blood Type Antibody Screen Crossmatch 09/10/21 09/10/21 09/10/21 Range/Units 17:09 17:09 17:09 WBC (4.8-10.8) X10*3/uL RBC (4.20-5.50) X10*6/uL Hgb (12.0-16.0) g/dl Hct (37.0-47.0) % MCV (80.0-98.0) fL MCH (27.0-33.0) pg MCHC (31.0-35.0) g/dl RDW (11.0-16.0) % Plt Count (160-400) X10*3/uL MPV (9.4-12.3) fL Immature Gran % (Auto) (0.0-0.4) % Neut % (Auto) (45-73) % Lymph % (Auto) (20-40) % [place] % (Auto) (2-11) % Eos % (Auto) (0-4) % Baso % (Auto) (0-2) % Lymph # (Auto) (1.2-4.9) X10*3/uL [place] # (Auto) (0.1-1.2) X10*3/uL Eos # (Auto) (0.0-0.4) X10*3/uL Baso # (Auto) (0.0-0.2) X10*3/uL Abs Immat Gran (auto) (0.00-0.03) X10*3/uL Absolute Neuts (auto) (2.0-8.3) x10*3/uL Absolute Nucleated RBC (0.0-0.012) X10*3/uL Nucleated RBC % (auto) (0.0-0.2) /100WBC PT (9.9-13.0) SEC INR (0.9-1.1) Sodium (135-145) mmol/L Potassium (3.3-5.1) mmol/L Chloride (96-108) mmol/L Carbon Dioxide (22-29) mmol/L Anion Gap (12-20) BUN (9-16) mg/dL Creatinine (0.5-1.4) mg/dL Estim Creat Clear Calc Estimated GFR Random Glucose (60-115) mg/dL Calcium (8.4-10.2) mg/dL Magnesium (1.6-2.6) mg/dL Total Bilirubin (0.0-1.0) mg/dL AST (5-31) U/L ALT (0-31) U/L Alkaline Phosphatase (39-117) U/L Troponin I High Sens 52.6 H* (<3.5-17.0) ng/L Total Protein (6.5-8.0) g/dL Albumin (3.5-5.0) g/dL Stool Occult Blood (NEGATIVE) COVID-19 ([facility]) Negative (Negative) COVID-19 Clin Com See Note Blood Type A Positive Antibody Screen NEGATIVE Crossmatch See Detail 09/10/21 Range/Units 20:28 WBC (4.8-10.8) X10*3/uL RBC (4.20-5.50) X10*6/uL Hgb (12.0-16.0) g/dl Hct (37.0-47.0) % MCV (80.0-98.0) fL MCH (27.0-33.0) pg MCHC (31.0-35.0) g/dl RDW (11.0-16.0) % Plt Count (160-400) X10*3/uL MPV (9.4-12.3) fL Immature Gran % (Auto) (0.0-0.4) % Neut % (Auto) (45-73) % Lymph % (Auto) (20-40) % [place] % (Auto) (2-11) % Eos % (Auto) (0-4) % Baso % (Auto) (0-2) % Lymph # (Auto) (1.2-4.9) X10*3/uL [place] # (Auto) (0.1-1.2) X10*3/uL Eos # (Auto) (0.0-0.4) X10*3/uL Baso # (Auto) (0.0-0.2) X10*3/uL Abs Immat Gran (auto) (0.00-0.03) X10*3/uL Absolute Neuts (auto) (2.0-8.3) x10*3/uL Absolute Nucleated RBC (0.0-0.012) X10*3/uL Nucleated RBC % (auto) (0.0-0.2) /100WBC PT (9.9-13.0) SEC INR (0.9-1.1) Sodium (135-145) mmol/L Potassium (3.3-5.1) mmol/L Chloride (96-108) mmol/L Carbon Dioxide (22-29) mmol/L Anion Gap (12-20) BUN (9-16) mg/dL Creatinine (0.5-1.4) mg/dL Estim Creat Clear Calc Estimated GFR Random Glucose (60-115) mg/dL Calcium (8.4-10.2) mg/dL Magnesium (1.6-2.6) mg/dL Total Bilirubin (0.0-1.0) mg/dL AST (5-31) U/L ALT (0-31) U/L Alkaline Phosphatase (39-117) U/L Troponin I High Sens (<3.5-17.0) ng/L Total Protein (6.5-8.0) g/dL Albumin (3.5-5.0) g/dL Stool Occult Blood NEGATIVE (NEGATIVE) COVID-19 ([facility]) (Negative) COVID-19 Clin Com Blood Type Antibody Screen Crossmatch Imaging Data Chest x-ray: Attestation: I personally reviewed and interpreted this imaging study as follows: Radiologist's impression: FINDINGS: The lungs are well-expanded with elevated right hemidiaphragm. No acute pneumonic process seen. Heart size is borderline enlarged with normal pulmonary vascularity. There is mild dorsal spine spondylosis.. XR/XR chest 2V IMPRESSION: No acute cardiopulmonary process seen. ECG Data ECG #1: Attestation: I personally reviewed and interpreted this ECG as follows: ECG interpretation date: 09/10/21 ECG interpretation time: 16:47 Interpretation: Normal sinus rhythm with a ventricular rate of 76 with left axis deviation Nonspecific ST abnormalities although no acute ischemic changes are noted. Similar compared to prior EKG 04/21/2021. Critical Care Time Critical Care Time Critical Care Time: Yes Total Critical Care Time: 60 Attestation: I personally attest to this time spent taking care of the patient Discharge Plan Discharge Clinical Impression: Anemia, Acute kidney injury superimposed on chronic kidney disease, Acute hyperkalemia Patient Disposition: Admitted As Inpatient
[2021-09-10 17:20] LABS: MANUAL DIFF FLAG NO
[2021-09-10 17:21] LABS: Basophils Percent Auto 0.4 % (0-2); Eosinophils Absolute Auto 0.4 X10*3/uL (0.0-0.4); Eosinophils Percent Auto 3.8 % (0-4); Imm Gran Pct Auto 4.4 % (0.0-0.4); Lymphocytes Absolute Auto 1.7 X10*3/uL (1.2-4.9); Lymphocytes Percent Auto 18.6 % (20-40); Mean Corpuscular HGB Conc 31.9 g/dl (31.0-35.0); Mean Corpuscular Hemoglobin 29.6 pg (27.0-33.0); Mean Corpuscular Volume 92.9 fL (80.0-98.0); Mean Platelet Volume 10.7 fL (9.4-12.3); Monocytes Absolute Auto 0.6 X10*3/uL (0.1-1.2); Monocytes Percent Auto 6.1 % (2-11); Neutrophils Absolute Auto 6.1 x10*3/uL (2.0-8.3); Neutrophils Percent Auto 66.7 % (45-73); Platelet Count 239 X10*3/uL (160-400); Red Blood Count 2.26 X10*6/uL (4.20-5.50); Red Cell Distribution Width 13.7 % (11.0-16.0); White Blood Count 9.2 X10*3/uL (4.8-10.8)
[2021-09-10 17:31] LABS: Prothrombin Time 11.5 SEC (9.9-13.0)
[2021-09-10 17:34] LABS: COVID-19 Test Negative (Negative)
[2021-09-10 17:35] LABS: Hemoglobin 6.7 g/dl (12.0-16.0)
[2021-09-10 17:45] LABS: Alanine Aminotransferase 21 U/L (0-31); Albumin Level 3.4 g/dL (3.5-5.0); Alkaline Phosphatase 68 U/L (39-117); Anion Gap 14 (12-20); Aspartate Amino Transferase 17 U/L (5-31); Bilirubin Total 0.3 mg/dL (0.0-1.0); Blood Urea Nitrogen 80 mg/dL (9-16); Calcium 9.3 mg/dL (8.4-10.2); Carbon Dioxide 28 mmol/L (22-29); Chloride 100 mmol/L (96-108); Creatinine Clr Calc Pharmacy 14.2; Estimated Glomerular Filt Rate 14; Glucose Random 158 mg/dL (60-115); Magnesium 2.1 mg/dL (1.6-2.6); Potassium 5.3 mmol/L (3.3-5.1); Sodium 137 mmol/L (135-145); Total Protein 7.2 g/dL (6.5-8.0)
[2021-09-10 17:46] LABS: Troponin-I High Sensitivity 52.6 ng/L (<3.5-17.0)
[2021-09-10 20:37] LABS: OBS Int Ctl Valid YES; OBS1 NEGATIVE (NEGATIVE)
--- NOTE | 2021-09-10 20:57 | PHA.MEDREC ---
Pharmacy Consult ? Medication Reconciliation Pharmacy has completed the medication reconciliation. based on list from [facility]
--- NOTE | 2021-09-10 23:22 | P.HPHOSP_ITS ---
History of Present Illness Date of Service: 09/10/21 Chief Complaint: Chest pain 82-year-old female with a past medical history of hypertension, hyperlipidemia, diabetes, CHF, history of CVA; paraplegia, bed-bound, peripheral vascular disease, carotid artery disease, vitamin-D showed deficiency, oropharyngeal dysp hagia, lumbar radiculopathy, anemia, history of MSSA bacteremia; history of MRSA cellulitis; group home resident-presented to the hospital today with a chief complaint of chest pain. Patient reports that over the past few days she has been having intermittent episodes of chest pain, sharp in nature, nonradiating, no associated lightheadedness dizziness or diaphoresis. Today on routine labs patient was noted to have abnormal hemoglobin of 6.4 and elevated creatinine of 3.0; hence sent her to the hospital for further evaluation. Patient denies any black stools or bright red blood per rectum. Denies any nausea or vomiting. Denies any abdominal discomfort. Denies any fever chills cough. Denies any urinary symptoms. Review of all other systems is negative except mentioned above ER course: Per ER team patient vitals are stable on presentation; on labs noted to have a hemoglobin of 6.7; creatinine elevated to 3.2 from baseline of 2.8. Stool guaiac was positive. Patient was ordered for 1 unit of blood. Admitted to the hospital for further management. Patient's EKG was unchanged from prior. Troponins indeterminate-question reduced clearance from renal insufficiency. [facility] Medical History Abscess of forearm, right Acute on chronic diastolic heart failure Acute respiratory failure with hypoxia Anemia B12 deficiency Chronic renal insufficiency CKD (chronic kidney disease) Congestive heart failure Diabetes Femoral artery stenosis Gram-positive bacteremia High cholesterol Hypertension Hypoxia Lower extremity edema Psoriasis of scalp PVD (peripheral vascular disease) Family History Father No problems noted. Mother No problems noted. Pertinent family history: As mentioned above Surgical History History of female sterilization History of shoulder surgery Social History Household Members: None Household Members Other:: Daughter Housing: House Do you presently have visiting nurse or other home services: Yes Alcohol intake: never Patient Tobacco Use Status: Never used Tobacco Advance Directives: Yes Advance Directives on File: Yes Advance Directives Date on File: 01/08/21 service: No Current occupational status: retired and disabled Meds Allergies Allergy/AdvReac Type Severity Reaction Status Date / Time Iodinated Contrast Media Allergy Unknown UNKNOWN Verified 12/26/20 13:27 [IODINATED CONTRAST MEDIA] Active Medications: Current Medications Acetaminophen (Acetaminophen 325 Mg Tablet) 650 mg PO Q6H PRN PRN Reason: Pain, Mild (Pain Scale 1-3) Melatonin (Melatonin 3 Mg Tablet) 6 mg PO BEDTIME PRN PRN Reason: Insomnia Pantoprazole Sodium (Pantoprazole Sodium 40 Mg/10 Ml Vial) 40 mg IVPUSH DAILY@0630 [facility] Pharmacy Consult (Consult Rx Perform Med Rec) 1 each MISCELLANE ONCE PRN PRN Reason: Consult order Senna (Sennosides 8.6 Mg Tablet) 17.2 mg PO BEDTIME PRN PRN Reason: Constipation Sodium Chloride (0.9 % Sodium Chloride Flush 3 Ml Syringe) 3 ml IVFLUSH QSHIFT [facility] Home Medications Medication Instructions Recorded Confirmed Last Taken Type amlodipine 10 mg tablet 10 mg PO DAILY 01/07/21 09/10/21 Unknown History atorvastatin 40 mg tablet 40 mg PO DAILY 01/07/21 09/10/21 Unknown History multivitamin with folic acid 400 1 tab PO DAILY 03/02/21 09/10/21 Unknown History mcg tablet bumetanide 1 mg tablet 2 mg PO BID@0900,1800 04/13/21 09/10/21 Unknown History acetaminophen 325 mg tablet 650 mg PO Q6H PRN 09/10/21 09/10/21 Unknown History amoxicillin 500 mg-potassium 1 tab PO BID 09/10/21 09/10/21 Unknown History clavulanate 125 mg tablet folic acid 1 mg tablet 1 mg PO DAILY 09/10/21 09/10/21 Unknown History Physical Exam Vital Signs and Narrative: Vital Signs: Last Vital Signs Temp 98.3 F 09/10/21 21:08 Pulse 70 09/10/21 21:08 Resp 18 09/10/21 21:08 BP 161/65 H 09/10/21 21:08 Pulse Ox 96 09/10/21 16:44 BMI result Body Mass Index 38.5 Gen: Appears be in no acute distress HEENT: NCAT, Moist mucosa. Pulmonary: Clear breath sounds anteriorly CVS: Normal S1-S2 Abdomen: BS+, Soft, Nontender Extremities: Warm well perfused; 1+ pitting edema noted Neuro: Alert and awake.; unable to move bilateral lower extremities secondary to known history of paralysis Results Labs CBC and Chem 7: 09/10/21 17:09 09/10/21 17:09 Labs: Laboratory Results - last 24 hr 09/10/21 09/10/21 09/10/21 17:09 17:09 17:09 MCV 92.9 MCH 29.6 MCHC 31.9 RDW 13.7 Plt Count 239 MPV 10.7 Immature Gran % (Auto) 4.4 H Neut % (Auto) 66.7 Lymph % (Auto) 18.6 L Spencer % (Auto) 6.1 Eos % (Auto) 3.8 Baso % (Auto) 0.4 Lymph # (Auto) 1.7 Spencer # (Auto) 0.6 Eos # (Auto) 0.4 Baso # (Auto) 0.0 Abs Immat Gran (auto) 0.40 H Absolute Neuts (auto) 6.1 Absolute Nucleated RBC 0.000 Nucleated RBC % (auto) 0.0 PT 11.5 INR 1.0 Anion Gap 14 Estim Creat Clear Calc 14.2 Estimated GFR 14 Random Glucose 158 H Calcium 9.3 Magnesium 2.1 Total Bilirubin 0.3 AST 17 ALT 21 Alkaline Phosphatase 68 Troponin I High Sens Total Protein 7.2 Albumin 3.4 L Stool Occult Blood COVID-19 ([facility]OBBIE) COVID-19 Clin Com Blood Type Antibody Screen Crossmatch 09/10/21 09/10/21 09/10/21 17:09 17:09 17:09 MCV MCH MCHC RDW Plt Count MPV Immature Gran % (Auto) Neut % (Auto) Lymph % (Auto) Spencer % (Auto) Eos % (Auto) Baso % (Auto) Lymph # (Auto) Spencer # (Auto) Eos # (Auto) Baso # (Auto) Abs Immat Gran (auto) Absolute Neuts (auto) Absolute Nucleated RBC Nucleated RBC % (auto) PT INR Anion Gap Estim Creat Clear Calc Estimated GFR Random Glucose Calcium Magnesium Total Bilirubin AST ALT Alkaline Phosphatase Troponin I High Sens 52.6 H* Total Protein Albumin Stool Occult Blood COVID-19 (ROBBIE) Negative COVID-19 Clin Com See Note Blood Type A Positive Antibody Screen NEGATIVE Crossmatch See Detail 09/10/21 09/10/21 20:28 21:45 MCV MCH MCHC RDW Plt Count MPV Immature Gran % (Auto) Neut % (Auto) Lymph % (Auto) Spencer % (Auto) Eos % (Auto) Baso % (Auto) Lymph # (Auto) Spencer # (Auto) Eos # (Auto) Baso # (Auto) Abs Immat Gran (auto) Absolute Neuts (auto) Absolute Nucleated RBC Nucleated RBC % (auto) PT INR Anion Gap Estim Creat Clear Calc Estimated GFR Random Glucose Calcium Magnesium Total Bilirubin AST ALT Alkaline Phosphatase Troponin I High Sens 52.0 H* Total Protein Albumin Stool Occult Blood NEGATIVE COVID-19 ([facility]OBBIE) COVID-19 Clin Com Blood Type Antibody Screen Crossmatch Imaging Radiologist's Impressions: Impressions Abdomen/Pelvis CT 09/10/21 17:40 IMPRESSION: 1. An underlying etiology for the patient's abdominal pain and constipation has not been found. 2. Incidental note made of cholelithiasis without cholecystitis, crossed renal ectopia, moderate stool burden throughout the colon, severe atherosclerotic disease, but doubt fibroid uterus and unchanged left sacral nerve sheath tumor. Fleischner guidelines were followed. Chest X-Ray 09/10/21 17:41 IMPRESSION: No acute cardiopulmonary process seen. Assessment and Plan (1) Acute kidney injury superimposed on chronic kidney disease: Status: Acute (2) Anemia: Status: Acute (3) Guaiac + stool: Status: Acute (4) Chest pain: Status: Acute 82-year-old female with a past medical history of hypertension, hyperlipidemia, diabetes, CHF, history of CVA; paraplegia, bed-bound, peripheral vascular disease, carotid artery disease, vitamin-D showed deficiency, oropharyngeal dysphagia, lumbar radiculopathy, anemia, history of MSSA bacteremia; history of MRSA cellulitis; group home resident-presented to the hospital today with a chief complaint of chest pain. Chest pain: Currently improved. Troponins indeterminate -> 52->50 EKG unchanged from prior Telemetry Cardiology consult Anemia/guaiac positive stool: IV PPI. Patient being transfused 1 unit of blood. Patient baseline hemoglobin around 8.5. On presentation hemoglobin is 6.7. Blood pressure stable. GI consult NAHID on CKD: Patient baseline creatinine around 2.8. Patient can on presentation is 3.2. Hold home Bumex and losartan. Monitor renal function Diabetes: Insulin sliding scale History of CHF: Patient is on Bumex on hold for now. Monitor for signs of fluid overload. DVT prophylaxis: SCD boots Code status: Full code Quality Stroke Does the patient have a stroke diagnosis?: No VTE Prior VTE?: No VTE Risk Level:: Medical - moderate - high VTE Device Contraindication: N/A - Device Ordered VTE Drug Contraindication: Treatment Not Indicated
[2021-09-11] VITALS (7 sets, daily range): BP systolic 132–171; BP diastolic 56–98; PULSE 62–76; RESP 14–18; TEMP 36.3–37; O2SAT 95–99
[2021-09-11] MEDS: 0.9 % Sodium Chloride Flush 3 ML SYRINGE IVFLUSH ×3 (00:50→21:52)
--- NOTE | 2021-09-11 01:52 | PC.NURSE ---
PT is concerned because she is diabetic and hasn't had any food all day long and no one has checked her POC. This RN checked POC, found to be 96, and gave the PT some toast with cranberry juice.
[2021-09-11 02:14] LABS: Glucose, Whole Blood 96 mg/dL (60-115)
[2021-09-11] MEDS: Pantoprazole Sodium 40 MG/10 ML VIAL IVPUSH (06:57)
[2021-09-11 08:25] LABS: Basophils Absolute Auto 0.1 X10*3/uL (0.0-0.2); Basophils Percent Auto 0.7 % (0-2); Eosinophils Absolute Auto 0.4 X10*3/uL (0.0-0.4); Eosinophils Percent Auto 4.8 % (0-4); Hematocrit 26.1 % (37.0-47.0); Hemoglobin 8.3 g/dl (12.0-16.0); Imm Gran Abs Auto 0.28 X10*3/uL (0.00-0.03); Imm Gran Pct Auto 3.7 % (0.0-0.4); Lymphocytes Absolute Auto 1.3 X10*3/uL (1.2-4.9); Lymphocytes Percent Auto 17.3 % (20-40); Mean Corpuscular HGB Conc 31.8 g/dl (31.0-35.0); Mean Corpuscular Hemoglobin 29.2 pg (27.0-33.0); Mean Corpuscular Volume 91.9 fL (80.0-98.0); Monocytes Absolute Auto 0.5 X10*3/uL (0.1-1.2); Monocytes Percent Auto 6.9 % (2-11); Neutrophils Percent Auto 66.6 % (45-73); PLT CLUMP 1; Red Blood Count 2.84 X10*6/uL (4.20-5.50)
[2021-09-11 08:26] LABS: MANUAL DIFF FLAG SCAN; SCAN SMEAR FLAG 1
[2021-09-11 08:27] LABS: White Blood Count 7.5 X10*3/uL (4.8-10.8)
[2021-09-11 08:41] LABS: Anion Gap 18 (12-20); Blood Urea Nitrogen 76 mg/dL (9-16); Calcium 9.4 mg/dL (8.4-10.2); Carbon Dioxide 22 mmol/L (22-29); Chloride 106 mmol/L (96-108); Creatinine Clr Calc Pharmacy 14.8; Estimated Glomerular Filt Rate 15; Glucose Random 105 mg/dL (60-115); Potassium 5.2 mmol/L (3.3-5.1); Sodium 141 mmol/L (135-145)
--- NOTE | 2021-09-11 08:46 | PM.GICN ---
History of Present Illness Data of Consult Service Date: 09/11/21 Requesting physician: Chico Potts Primary Care Provider: Nas Gates MD [facility] Reason for consult: anemia 82-year-old female with a past medical history of hypertension, hyperlipidemia, diabetes, CHF, history of CVA; paraplegia, bed-bound, peripheral vascular disease, carotid artery disease, vitamin-D deficiency, oropharyngeal dysphagia, lumbar radiculopathy, anemia, history of MSSA bacteremia; MRSA cellulitis; who I am seeing for assessment for anemia She initially presented with intermittent episodes of chest pain, sharp in nature, nonradiating, without any SOB, cough or sputum. Patient denies any black stools or bright red blood per rectum patient was noted to have abnormal hemoglobin of 6.4 and elevated creatinine of 3.0; Denies any nausea or vomiting.? Denies any abdominal discomfort.? Denies any fever chills cough.? lying comfortably in the bed. Last EGD/colonoscopy:12/2020--right sided colon prep was poor Endoscopy Findings: duodenitis, erosions, ulceration gastritis esophagitis Colonoscopy Findings: polyps internal hemorrhoids diverticular disease BX: tubular adenoma, no h pylori on stomach bx Review of Systems Review of Systems: Constitutional : No Weight loss, No Fever, No Chills, No Night Sweats, No Fatigue, No Malaise ENT/Mouth : No Hearing loss, No Ear Pain, No Nasal Congestion, No Sinus Pain, No Hoarseness, No sore throat, No Rhinorrhea, No Swallowing Difficulty Eyes: No Eye Pain, No Swelling, No Redness, No Foreign Body, No Discharge, No Vision Changes Cardiovascular : Positive chest pain, No SOB, No Dyspnea on Exertion, No Orthopnea, No Edema, No Palpitations Respiratory : No Cough, No Sputum, No Wheezing, No Smoke Exposure, No Dyspnea Gastrointestinal : positive abdominal pain and constipation, No Nausea, No Vomiting, No Diarrhea, No Hematochezia, No Melena Genitourinary : no irregular bleeding, No Dysuria, No Urinary Frequency, No Hematuria, No Urinary Incontinence, No Urgency, No Flank Pain, No Urinary Flow Changes, No Hesitancy Musculoskeletal : No joint pain, No Myalgias, No Joint Swelling Skin : No Skin Lesions, No rash Neuro : No Weakness, No Numbness, No Paresthesias, No Loss of Consciousness, No Dizziness, No Headache Psych : No Anxiety/Panic, No Depression, No SI/HI/AH/VH, No Social Issues, Heme/Lymph: No Bruising, No Bleeding,No Lymphadenopathy Endocrine : No Polyuria, No Polydipsia, No Temperature Intolerance [facility] Past Medical History Medical History Abscess of forearm, right Acute on chronic diastolic heart failure Acute respiratory failure with hypoxia Anemia B12 deficiency Chronic renal insufficiency CKD (chronic kidney disease) Congestive heart failure Diabetes Femoral artery stenosis Gram-positive bacteremia High cholesterol Hypertension Hypoxia Lower extremity edema Psoriasis of scalp PVD (peripheral vascular disease) Family History Family History Father No problems noted. Mother No problems noted. Surgical History Surgical History History of female sterilization History of shoulder surgery Social History Social History Household Members: None Household Members Other:: Daughter Housing: House Do you presently have visiting nurse or other home services: Yes Alcohol intake: never Patient Tobacco Use Status: Never used Tobacco Advance Directives: Yes Advance Directives on File: Yes Advance Directives Date on File: 01/08/21 Do you have thoughts of harming others: None Do you have a plan to hurt others: No Plan service: No Current occupational status: retired and disabled Meds Allergies Allergy/AdvReac Type Severity Reaction Status Date / Time Iodinated Contrast Media Allergy Unknown UNKNOWN Verified 12/26/20 13:27 [IODINATED CONTRAST MEDIA] Active Medications: Current Medications Acetaminophen (Acetaminophen 325 Mg Tablet) 650 mg PO Q6H PRN PRN Reason: Pain, Mild (Pain Scale 1-3) Amlodipine Besylate (Amlodipine Besylate 10 Mg Tablet) 10 mg PO DAILY [place]; Protocol Atorvastatin Calcium (Atorvastatin Calcium 40 Mg Tablet) 40 mg PO DAILY [facility] Cyanocobalamin (Cyanocobalamin (Vitamin B-12) 1,000 Mcg Tablet) 1,000 mcg PO DAILY [facility] Folic Acid (Folic Acid 1 Mg Tablet) 1 mg PO DAILY [facility] Hydralazine HCl (Hydralazine Hcl 50 Mg Tablet) 100 mg PO TID [place]; Protocol Melatonin (Melatonin 3 Mg Tablet) 6 mg PO BEDTIME PRN PRN Reason: Insomnia Multivitamins/Vitamin C (Multivitamin Tablet) 1 tab PO DAILY [facility] Pantoprazole Sodium (Pantoprazole Sodium 40 Mg/10 Ml Vial) 40 mg IVPUSH DAILY@0630 [facility] Last Admin: 09/11/21 06:57 Dose: 40 mg Documented by: Pharmacy Consult (Consult Rx Perform Med Rec) 1 each MISCELLANE ONCE PRN PRN Reason: Consult order Pregabalin (Pregabalin 25 Mg Capsule) 25 mg PO BID [facility] Senna (Sennosides 8.6 Mg Tablet) 17.2 mg PO BEDTIME PRN PRN Reason: Constipation Sodium Chloride (0.9 % Sodium Chloride Flush 3 Ml Syringe) 3 ml IVFLUSH QSHIFT [facility] Last Admin: 09/11/21 07:21 Dose: Not Given Documented by: Home Medications Medication Instructions Recorded Confirmed Last Taken Type amlodipine 10 mg tablet 10 mg PO DAILY 01/07/21 09/10/21 Unknown History atorvastatin 40 mg tablet 40 mg PO DAILY 01/07/21 09/10/21 Unknown History multivitamin with folic acid 400 1 tab PO DAILY 03/02/21 09/10/21 Unknown History mcg tablet bumetanide 1 mg tablet 2 mg PO BID@0900,1800 04/13/21 09/10/21 Unknown History acetaminophen 325 mg tablet 650 mg PO Q6H PRN 09/10/21 09/10/21 Unknown History amoxicillin 500 mg-potassium 1 tab PO BID 09/10/21 09/10/21 Unknown History clavulanate 125 mg tablet folic acid 1 mg tablet 1 mg PO DAILY 09/10/21 09/10/21 Unknown History Physical Exam Vital Signs: Vital Signs: Last Vital Signs Temp 97.8 F 09/11/21 00:59 Pulse 62 09/11/21 04:43 Resp 14 09/11/21 04:43 BP 158/59 H 09/11/21 04:43 Pulse Ox 98 09/11/21 04:43 BMI result Body Mass Index 38.5 GENERAL APPEARANCE: in no acute distress, NECK: no carotid bruit, no jugular venous distention. SKIN: no suspicious lesions, warm and dry. HEART: no murmurs, regular rate and rhythm. LUNGS: clear to auscultation bilaterally. ABDOMEN: soft, nontender. EXTREMITIES: no edema. PERIPHERAL PULSES: equal. NEUROLOGIC: No new gross deficits, chronic weakness lower limbs, AAO X 3 Results Labs CBC & Chem 7: 09/11/21 08:21 09/11/21 08:20 Labs: Short CBC 09/10/21 Range/Units 17:09 WBC 9.2 (4.8-10.8) X10*3/uL Hgb 6.7 L* (12.0-16.0) g/dl Hct 21.0 L* (37.0-47.0) % Plt Count 239 (160-400) X10*3/uL BMP 09/10/21 09/11/21 17:09 08:20 Sodium 137 141 Potassium 5.3 H D 5.2 H Chloride 100 106 Carbon Dioxide 28 22 BUN 80 H 76 H Creatinine 3.21 H 3.08 H Calcium 9.3 9.4 Liver Function 09/10/21 Range/Units 17:09 Total Bilirubin 0.3 (0.0-1.0) mg/dL AST 17 (5-31) U/L ALT 21 (0-31) U/L Alkaline Phosphatase 68 (39-117) U/L Albumin 3.4 L (3.5-5.0) g/dL Assessment and Plan (1) Anemia: Status: Acute 1/ Subacute on chronic anemia without overt GI bleeding but worsened renal function so maybe multifactorial etiolgoy for anemia including CKD, mucosal blood loss. Endoscopies done last year with erosive duodenitis, colon polyps but right side not seen easily. PLAN: 1/ complete cardiac work up 2/ Further work up for worsening renal function, if overt GI bleeding then in patient EGD/colonoscopy otherwise can be done as early outpatient 3/ pls check iron, b12, folic acid and hemolysis labs 4/ meantime can use pantoprazole 40 mg PO (unclear if has been taking at home) Procedures Date of Service Date of Service: 09/11/21
[2021-09-11 08:57] LABS: Platelet Count 172 X10*3/uL (160-400)
[2021-09-11 08:58] LABS: SLIDE REVIEW VERIFIED
--- NOTE | 2021-09-11 09:59 | PM.CNCAR ---
History of Present Illness History of Present Illness Date of Service: 09/11/21 Requesting physician: Xavier Chaparro Chief complaint: Anemia, CP Narrative: 81-year-old female who has background history of hypertension, anemia, peripheral vascular disease and congestive heart failure. She had echocardiography in December 2020 which showed normal biventricular function with basal inferior hypokinesis. She is now presenting with anemia with hemoglobin of 6.7 and hematocrit 21. She also complained of some chest pain and we have been asked to assess her. She was seen with a transit bus operator and still her history was quite vague. She is describing chest pain which comes and goes and unable to describe what it feels like. She clearly has chest wall tenderness at this point. She is saying is not a pressure or tightness like feeling. She is not short of breath right now. She has guaiac-positive stools. [facility] Past Medical History Medical History Abscess of forearm, right Acute on chronic diastolic heart failure Acute respiratory failure with hypoxia Anemia B12 deficiency Chronic renal insufficiency CKD (chronic kidney disease) Congestive heart failure Diabetes Femoral artery stenosis Gram-positive bacteremia High cholesterol Hypertension Hypoxia Lower extremity edema Psoriasis of scalp PVD (peripheral vascular disease) Family History Family History Father No problems noted. Mother No problems noted. Surgical History Surgical History History of female sterilization History of shoulder surgery Social History Social History Household Members: None Household Members Other:: Daughter Housing: House Do you presently have visiting nurse or other home services: Yes Alcohol intake: never Patient Tobacco Use Status: Never used Tobacco Advance Directives: Yes Advance Directives on File: Yes Advance Directives Date on File: 01/08/21 Do you have thoughts of harming others: None Do you have a plan to hurt others: No Plan service: No Current occupational status: retired and disabled Meds Allergies Allergy/AdvReac Type Severity Reaction Status Date / Time Iodinated Contrast Media Allergy Unknown UNKNOWN Verified 12/26/20 13:27 [IODINATED CONTRAST MEDIA] Active Medications: Current Medications Acetaminophen (Acetaminophen 325 Mg Tablet) 650 mg PO Q6H PRN PRN Reason: Pain, Mild (Pain Scale 1-3) Amlodipine Besylate (Amlodipine Besylate 10 Mg Tablet) 10 mg PO DAILY [facility]; Protocol Atorvastatin Calcium (Atorvastatin Calcium 40 Mg Tablet) 40 mg PO DAILY [facility] Cyanocobalamin (Cyanocobalamin (Vitamin B-12) 1,000 Mcg Tablet) 1,000 mcg PO DAILY [facility] Folic Acid (Folic Acid 1 Mg Tablet) 1 mg PO DAILY [facility] Hydralazine HCl (Hydralazine Hcl 50 Mg Tablet) 100 mg PO TID [facility]; Protocol Melatonin (Melatonin 3 Mg Tablet) 6 mg PO BEDTIME PRN PRN Reason: Insomnia Multivitamins/Vitamin C (Multivitamin Tablet) 1 tab PO DAILY [facility] Pantoprazole Sodium (Pantoprazole Sodium 40 Mg/10 Ml Vial) 40 mg IVPUSH DAILY@0630 [facility] Last Admin: 09/11/21 06:57 Dose: 40 mg Documented by: Pharmacy Consult (Consult Rx Perform Med Rec) 1 each MISCELLANE ONCE PRN PRN Reason: Consult order Pregabalin (Pregabalin 25 Mg Capsule) 25 mg PO BID [facility] Senna (Sennosides 8.6 Mg Tablet) 17.2 mg PO BEDTIME PRN PRN Reason: Constipation Sodium Chloride (0.9 % Sodium Chloride Flush 3 Ml Syringe) 3 ml IVFLUSH QSHIFT [facility] Last Admin: 09/11/21 07:21 Dose: Not Given Documented by: Home Medications Medication Instructions Recorded Confirmed Last Taken Type amlodipine 10 mg tablet 10 mg PO DAILY 01/07/21 09/10/21 Unknown History atorvastatin 40 mg tablet 40 mg PO DAILY 01/07/21 09/10/21 Unknown History multivitamin with folic acid 400 1 tab PO DAILY 03/02/21 09/10/21 Unknown History mcg tablet bumetanide 1 mg tablet 2 mg PO BID@0900,1800 04/13/21 09/10/21 Unknown History acetaminophen 325 mg tablet 650 mg PO Q6H PRN 09/10/21 09/10/21 Unknown History amoxicillin 500 mg-potassium 1 tab PO BID 09/10/21 09/10/21 Unknown History clavulanate 125 mg tablet folic acid 1 mg tablet 1 mg PO DAILY 09/10/21 09/10/21 Unknown History Physical Exam Vital Signs: Vital Signs: Last Vital Signs Temp 97.8 F 09/11/21 00:59 Pulse 62 09/11/21 04:43 Resp 14 09/11/21 04:43 BP 158/59 H 09/11/21 04:43 Pulse Ox 98 09/11/21 04:43 BMI result Body Mass Index 38.5 GENERAL APPEARANCE: in no acute distress, pleasant. NECK: no carotid bruit, no jugular venous distention. SKIN: no suspicious lesions, warm and dry. HEART: no murmurs, regular rate and rhythm. LUNGS: clear to auscultation bilaterally. ABDOMEN: soft, nontender. EXTREMITIES: no edema. PERIPHERAL PULSES: equal. NEUROLOGIC: No gross deficits, AAO X 3 Objective Labs and Meds Result diagrams: 09/11/21 08:21 09/11/21 08:20 Lab results: Laboratory Results - last 24 hr 09/10/21 09/10/21 09/10/21 17:09 17:09 17:09 WBC 9.2 RBC 2.26 L Hgb 6.7 L* Hct 21.0 L* MCV 92.9 MCH 29.6 MCHC 31.9 RDW 13.7 Plt Count 239 MPV 10.7 Immature Gran % (Auto) 4.4 H Neut % (Auto) 66.7 Lymph % (Auto) 18.6 L Calvert % (Auto) 6.1 Eos % (Auto) 3.8 Baso % (Auto) 0.4 Lymph # (Auto) 1.7 Calvert # (Auto) 0.6 Eos # (Auto) 0.4 Baso # (Auto) 0.0 Abs Immat Gran (auto) 0.40 H Absolute Neuts (auto) 6.1 Absolute Nucleated RBC 0.000 Nucleated RBC % (auto) 0.0 Smear Tech's Comments Smear Path Review Cancelled PT 11.5 INR 1.0 Sodium 137 Potassium 5.3 H D Chloride 100 Carbon Dioxide 28 Anion Gap 14 BUN 80 H Creatinine 3.21 H Estim Creat Clear Calc 14.2 Estimated GFR 14 POC Glucose Random Glucose 158 H Calcium 9.3 Magnesium 2.1 Total Bilirubin 0.3 AST 17 ALT 21 Alkaline Phosphatase 68 Troponin I High Sens Total Protein 7.2 Albumin 3.4 L Stool Occult Blood COVID-19 (ROBBIE) COVID-19 Clin Com Blood Type Antibody Screen Crossmatch 09/10/21 09/10/21 09/10/21 17:09 17:09 17:09 WBC RBC Hgb Hct MCV MCH MCHC RDW Plt Count MPV Immature Gran % (Auto) Neut % (Auto) Lymph % (Auto) Calvert % (Auto) Eos % (Auto) Baso % (Auto) Lymph # (Auto) Calvert # (Auto) Eos # (Auto) Baso # (Auto) Abs Immat Gran (auto) Absolute Neuts (auto) Absolute Nucleated RBC Nucleated RBC % (auto) Smear Tech's Comments Smear Path Review PT INR Sodium Potassium Chloride Carbon Dioxide Anion Gap BUN Creatinine Estim Creat Clear Calc Estimated GFR POC Glucose Random Glucose Calcium Magnesium Total Bilirubin AST ALT Alkaline Phosphatase Troponin I High Sens 52.6 H* Total Protein Albumin Stool Occult Blood COVID-19 (ROBBIE) Negative [employer] See Note Blood Type A Positive Antibody Screen NEGATIVE Crossmatch See Detail 09/10/21 09/10/21 09/11/21 20:28 21:45 01:50 WBC RBC Hgb Hct MCV MCH MCHC RDW Plt Count MPV Immature Gran % (Auto) Neut % (Auto) Lymph % (Auto) Calvert % (Auto) Eos % (Auto) Baso % (Auto) Lymph # (Auto) Calvert # (Auto) Eos # (Auto) Baso # (Auto) Abs Immat Gran (auto) Absolute Neuts (auto) Absolute Nucleated RBC Nucleated RBC % (auto) Smear Tech's Comments Smear Path Review PT INR Sodium Potassium Chloride Carbon Dioxide Anion Gap BUN Creatinine Estim Creat Clear Calc Estimated GFR POC Glucose 96 Random Glucose Calcium Magnesium Total Bilirubin AST ALT Alkaline Phosphatase Troponin I High Sens 52.0 H* Total Protein Albumin Stool Occult Blood NEGATIVE COVID-19 (ROBBIE) COVID-Twonq Com Blood Type Antibody Screen Crossmatch 09/11/21 09/11/21 08:20 08:21 WBC 7.5 RBC 2.84 L D Hgb 8.3 L D Hct 26.1 L D MCV 91.9 MCH 29.2 MCHC 31.8 RDW 14.0 Plt Count 172 D MPV Not Reportable Immature Gran % (Auto) 3.7 H Neut % (Auto) 66.6 Lymph % (Auto) 17.3 L Calvert % (Auto) 6.9 Eos % (Auto) 4.8 H Baso % (Auto) 0.7 Lymph # (Auto) 1.3 Calvert # (Auto) 0.5 Eos # (Auto) 0.4 Baso # (Auto) 0.1 Abs Immat Gran (auto) 0.28 H Absolute Neuts (auto) 5.0 Absolute Nucleated RBC 0.000 Nucleated RBC % (auto) 0.0 Smear Tech's Comments VERIFIED Smear Path Review PT INR Sodium 141 Potassium 5.2 H Chloride 106 Carbon Dioxide 22 Anion Gap 18 BUN 76 H Creatinine 3.08 H Estim Creat Clear Calc 14.8 Estimated GFR 15 POC Glucose Random Glucose 105 Calcium 9.4 Magnesium Total Bilirubin AST ALT Alkaline Phosphatase Troponin I High Sens Total Protein Albumin Stool Occult Blood COVID-19 (ROBBIE) COVID-19 Clin Com Blood Type Antibody Screen Crossmatch Imaging Radiologist's impression: Impressions Abdomen/Pelvis CT 09/10/21 17:40 IMPRESSION: 1. An underlying etiology for the patient's abdominal pain and constipation has not been found. 2. Incidental note made of cholelithiasis without cholecystitis, crossed renal ectopia, moderate stool burden throughout the colon, severe atherosclerotic disease, but doubt fibroid uterus and unchanged left sacral nerve sheath tumor. Fleischner guidelines were followed. Chest X-Ray 09/10/21 17:41 IMPRESSION: No acute cardiopulmonary process seen. Assessment and Plan (1) Chest pain: Status: Acute Pleasant 81-year-old female who has history of diastolic heart failure and hypertension was presenting with anemia and chest pain. Initial hemoglobin was 6.7. The chest pain is quite atypical and she clearly has some reproducible chest pain on the chest wall. I think she should have workup for anemia and as that can cause chest pains in anyone. Also blood pressure was elevated which is improving. I do not think she needs any further workup right now for chest pain. If she has persistent symptoms after anemia is improved then we can consider stress testing on her as outpatient. Thank you for allowing me to participate in the care of your patient. Please feel free to contact me if you have any questions. Procedures Date of Service Date of Service: 09/11/21
[2021-09-11 11:25] LABS: Glucose, Whole Blood 102 mg/dL (60-115)
--- NOTE | 2021-09-11 11:50 | HO.PM.IMPN ---
Subjective Subjective Date of Service: 09/11/21 Interval History: cc: chest pain interval history: tired Cardiovascular Cardiovascular: Reports no additional cardiovascular complaints Respiratory Respiratory: Reports no additional respiratory complaints Physical Exam Vital Signs: Vital Signs: Last Vital Signs Temp 97.8 F 09/11/21 11:17 Pulse 71 09/11/21 11:17 Resp 17 09/11/21 11:17 BP 132/74 09/11/21 11:17 Pulse Ox 99 09/11/21 11:17 BMI result Body Mass Index 38.5 General: AO X 3, no acute distress Resp: CTA bilateral, no accessory muscles used CVS: S1,S2,RRR GI: soft, non tender, non distended Neuro: motor grossly intact, alert Psych: appropriate affect, appropriate insight Objective Data Active Medications Acetaminophen (Acetaminophen 325 Mg Tablet) 650 mg PO Q6H PRN PRN Reason: Pain, Mild (Pain Scale 1-3) Amlodipine Besylate (Amlodipine Besylate 10 Mg Tablet) 10 mg PO DAILY [facility]; Protocol Last Admin: 09/11/21 10:10 Dose: Not Given Documented by: EFE Non-Admin Reason: NPO Atorvastatin Calcium (Atorvastatin Calcium 40 Mg Tablet) 40 mg PO DAILY [facility] Last Admin: 09/11/21 10:10 Dose: Not Given Documented by: EFE Non-Admin Reason: NPO Cyanocobalamin (Cyanocobalamin (Vitamin B-12) 1,000 Mcg Tablet) 1,000 mcg PO DAILY [facility] Last Admin: 09/11/21 10:10 Dose: Not Given Documented by: EFE Non-Admin Reason: NPO Folic Acid (Folic Acid 1 Mg Tablet) 1 mg PO DAILY [facility] Last Admin: 09/11/21 10:10 Dose: Not Given Documented by: EFE Non-Admin Reason: NPO Hydralazine HCl (Hydralazine Hcl 50 Mg Tablet) 100 mg PO TID [facility]; Protocol Last Admin: 09/11/21 10:10 Dose: Not Given Documented by: EFE Non-Admin Reason: NPO Melatonin (Melatonin 3 Mg Tablet) 6 mg PO BEDTIME PRN PRN Reason: Insomnia Multivitamins/Vitamin C (Multivitamin Tablet) 1 tab PO DAILY [facility] Last Admin: 09/11/21 10:10 Dose: Not Given Documented by: EFE Non-Admin Reason: NPO Omeprazole (Omeprazole 40 Mg Capsule.) 40 mg PO BID@4345,6056 [facility] Pharmacy Consult (Consult Rx Perform Med Rec) 1 each MISCELLANE ONCE PRN PRN Reason: Consult order Pregabalin (Pregabalin 25 Mg Capsule) 25 mg PO BID [facility] Last Admin: 09/11/21 10:11 Dose: Not Given Documented by: EFE Non-Admin Reason: NPO Senna (Sennosides 8.6 Mg Tablet) 17.2 mg PO BEDTIME PRN PRN Reason: Constipation Sodium Chloride (0.9 % Sodium Chloride Flush 3 Ml Syringe) 3 ml IVFLUSH QSHIFT [facility] Last Admin: 09/11/21 07:21 Dose: Not Given Documented by: EFE Non-Admin Reason: Med Not Available Labs CBC & Chem 7: 09/11/21 08:21 09/11/21 08:20 Labs: Laboratory Results - last 24 hr 09/10/21 09/10/21 09/10/21 17:09 17:09 17:09 MCV 92.9 MCH 29.6 MCHC 31.9 RDW 13.7 Plt Count 239 MPV 10.7 Immature Gran % (Auto) 4.4 H Neut % (Auto) 66.7 Lymph % (Auto) 18.6 L Thomas % (Auto) 6.1 Eos % (Auto) 3.8 Baso % (Auto) 0.4 Lymph # (Auto) 1.7 Thomas # (Auto) 0.6 Eos # (Auto) 0.4 Baso # (Auto) 0.0 Abs Immat Gran (auto) 0.40 H Absolute Neuts (auto) 6.1 Absolute Nucleated RBC 0.000 Nucleated RBC % (auto) 0.0 Smear Tech's Comments Smear Path Review Cancelled PT 11.5 INR 1.0 Anion Gap 14 Estim Creat Clear Calc 14.2 Estimated GFR 14 POC Glucose Random Glucose 158 H Calcium 9.3 Magnesium 2.1 Total Bilirubin 0.3 AST 17 ALT 21 Alkaline Phosphatase 68 Troponin I High Sens Total Protein 7.2 Albumin 3.4 L Stool Occult Blood COVID-19 ([facility]OBBIE) COVID-19 Clin Com Blood Type Antibody Screen Crossmatch 09/10/21 09/10/21 09/10/21 17:09 17:09 17:09 MCV MCH MCHC RDW Plt Count MPV Immature Gran % (Auto) Neut % (Auto) Lymph % (Auto) Thomas % (Auto) Eos % (Auto) Baso % (Auto) Lymph # (Auto) Thomas # (Auto) Eos # (Auto) Baso # (Auto) Abs Immat Gran (auto) Absolute Neuts (auto) Absolute Nucleated RBC Nucleated RBC % (auto) Smear Tech's Comments Smear Path Review PT INR Anion Gap Estim Creat Clear Calc Estimated GFR POC Glucose Random Glucose Calcium Magnesium Total Bilirubin AST ALT Alkaline Phosphatase Troponin I High Sens 52.6 H* Total Protein Albumin Stool Occult Blood COVID-19 (ROBBIE) Negative COVID-19 Clin Com See Note Blood Type A Positive Antibody Screen NEGATIVE Crossmatch See Detail 09/10/21 09/10/21 09/11/21 20:28 21:45 01:50 MCV MCH MCHC RDW Plt Count MPV Immature Gran % (Auto) Neut % (Auto) Lymph % (Auto) Thomas % (Auto) Eos % (Auto) Baso % (Auto) Lymph # (Auto) Thomas # (Auto) Eos # (Auto) Baso # (Auto) Abs Immat Gran (auto) Absolute Neuts (auto) Absolute Nucleated RBC Nucleated RBC % (auto) Smear Tech's Comments Smear Path Review PT INR Anion Gap Estim Creat Clear Calc Estimated GFR POC Glucose 96 Random Glucose Calcium Magnesium Total Bilirubin AST ALT Alkaline Phosphatase Troponin I High Sens 52.0 H* Total Protein Albumin Stool Occult Blood NEGATIVE COVID-19 (ROBBIE) COVID-19 Clin Com Blood Type Antibody Screen Crossmatch 09/11/21 09/11/21 09/11/21 08:20 08:21 11:17 MCV 91.9 MCH 29.2 MCHC 31.8 RDW 14.0 Plt Count 172 D MPV Not Reportable Immature Gran % (Auto) 3.7 H Neut % (Auto) 66.6 Lymph % (Auto) 17.3 L Thomas % (Auto) 6.9 Eos % (Auto) 4.8 H Baso % (Auto) 0.7 Lymph # (Auto) 1.3 Thomas # (Auto) 0.5 Eos # (Auto) 0.4 Baso # (Auto) 0.1 Abs Immat Gran (auto) 0.28 H Absolute Neuts (auto) 5.0 Absolute Nucleated RBC 0.000 Nucleated RBC % (auto) 0.0 Smear Tech's Comments VERIFIED Smear Path Review PT INR Anion Gap 18 Estim Creat Clear Calc 14.8 Estimated GFR 15 POC Glucose 102 Random Glucose 105 Calcium 9.4 Magnesium Total Bilirubin AST ALT Alkaline Phosphatase Troponin I High Sens Total Protein Albumin Stool Occult Blood COVID-19 (ROBBIE) COVID-19 Clin Com Blood Type Antibody Screen Crossmatch Assessment and Plan (1) Chest pain: Status: Acute Assessment and Plan: 82F presented with chest pain, found to have anemia chest pain improving, troponin stable, likely related to anemia, follow up cardiology acute on chronic anemia of chronic disease, plus possible chronic blood loss anemia hgb responded appropriately after 1 unit prbc, no plan for endoscopy today, will start diet, check iron studies, oral ppi, follow up gi CKD IV close to baseline chronic diastolic chf bumex htn hold losartan due to mild hyperkalemia, continue amlodpine, hydralazine full code dvt prophylaxis - mechanical due to possible bleed Quality Stroke Does the patient have a stroke diagnosis?: No VTE Prior VTE?: No VTE Risk Level:: Medical - moderate - high VTE Device Contraindication: N/A - Device Ordered VTE Drug Contraindication: Treatment Not Indicated
[2021-09-11 12:05] LABS: Iron 55 mcg/dL (30-160); Percent Iron Saturation 26 % (15-50); Total Iron Binding Capacity 208 mcg/dL (228-428); Unsaturated Iron Binding 153 ug/dL
[2021-09-11] MEDS: hydrALAZINE HCl 50 MG TABLET 100 MG PO ×2 (15:47→21:52)
[2021-09-11] MEDS: Bumetanide 1 MG TABLET 2 MG PO (15:48)
[2021-09-11] MEDS: Omeprazole 40 MG CAPSULE.DR PO (15:48)
[2021-09-11 16:40] LABS: Glucose, Whole Blood 169 mg/dL (60-115)
[2021-09-11] MEDS: Pregabalin 25 MG CAPSULE PO (21:52)
[2021-09-11 22:21] LABS: Glucose, Whole Blood 158 mg/dL (60-115)
[2021-09-12 03:36] VITALS: BP 128/47; PULSE 70; RESP 18; TEMP 37.3; O2SAT 98
[2021-09-12] MEDS: Omeprazole 40 MG CAPSULE.DR PO (06:31)
[2021-09-12 07:29] LABS: Glucose, Whole Blood 98 mg/dL (60-115)
[2021-09-12 07:34] VITALS: BP 158/66; PULSE 75; RESP 16; TEMP 36.9; O2SAT 94
--- NOTE | 2021-09-12 09:21 | MHC.CM.PN ---
spoke with pts sarah who confirms that pt is from [facility] where she will return when dcd
--- NOTE | 2021-09-12 09:55 | PM.DS ---
DS: Providers Provider Date of Service: 09/12/21 Date of admission: 09/10/21 22:28 Primary care physician: Nas Gates MD Consults: 09/10/21 22:26 Consult to Gastroenterology Routine Consulting Provider: Gurpreet Doe Reason for consultation: Anemia; Guaiac positive stool 09/10/21 23:21 Consult to Cardiology Routine Consulting Provider: Toney Long Reason for consultation: chest pain DS: Diagnosis Discharge Diagnosis (1) Anemia: Status: Acute DS: Summary Hospital Course Hospital Course: patient was admitted for chest pain, likely due to acute on chronic anemia of chronic disease in the setting of CKD 4. Hemoglobin responded appropriately to 1 unit of PRBC, chest pain resolved. She was seen by Cardiology who felt no further workup was indicated at this time, if pain recurs recommended stress test. She was seen by GI who felt this was unlikely due to acute blood loss, they did recommend starting a PPI and can follow up with GI as outpatient. Patient's losartan was held due to mild hyperkalemia, Imdur was added. Patient is feeling better will be discharged back to group home facility. Time Spent with Patient Time attestation: Total time spent providing and/or coordinating discharge services: Discharge coordination time: Greater than 30 minutes Quality: Stroke Does the patient have a stroke diagnosis?: No Physical Exam Vital Signs: Vital Signs: Last Vital Signs Temp 98.5 F 09/12/21 07:34 Pulse 75 09/12/21 07:34 Resp 16 09/12/21 07:34 BP 158/66 H 09/12/21 07:34 Pulse Ox 94 09/12/21 07:34 BMI result Body Mass Index 38.5 General: AO X 3, no acute distress Resp: CTA bilateral, no accessory muscles used CVS: S1,S2,RRR GI: soft, non tender, non distended Neuro: motor grossly intact, alert Psych: appropriate affect, appropriate insight DS: Data Data Completed and Pending Completed studies during hospitalization [Text1]: Procedures Drainage of Right Upper Arm Subcutaneous Tissue and Fascia, Open Approach (03/03/21) Excision of Ascending Colon, Via Natural or Artificial Opening Endoscopic, Diagnostic (01/07/21) Excision of Duodenum, Via Natural or Artificial Opening Endoscopic, Diagnostic (01/07/21) Excision of Stomach, Pylorus, Via Natural or Artificial Opening Endoscopic, Diagnostic (01/07/21) Insertion of Infusion Device into Right Brachial Vein, Percutaneous Approach (03/03/21) Transfusion of Nonautologous Red Blood Cells into Peripheral Vein, Percutaneous Approach (03/03/21) Labs on day of discharge: Laboratory Results - last 24 hr 09/11/21 09/11/21 09/11/21 08:20 11:17 16:27 POC Glucose 102 169 H Iron 55 TIBC 208 L % Saturation 26 Unsat Iron Binding 153 09/11/21 09/12/21 22:16 07:13 POC Glucose 158 H 98 Iron TIBC % Saturation Unsat Iron Binding Discharge Plan Discharge Patient Disposition: [facility] Discharge Diagnosis: chest pain, anemia Referrals: Nas Gates MD [Primary Care Provider] - 1 Week Discharge Medications: New isosorbide mononitrate 30 mg Tablet Extended Release 24 Hr 30 mg PO DAILY Qty: 0 RF: 0 omeprazole 40 mg capsule,delayed release(DR/EC) 40 mg PO DAILY Qty: 30 RF: 0 Continued (DME) miscellaneous medical supply Misc See Rx Instructions .MEDSUPPLY Qty: 1 RF: 0 multivitamin with folic acid 400 mcg tablet 1 tab PO DAILY RF: 0 bumetanide 1 mg tablet 2 mg PO BID@0900,1800 RF: 0 oxycodone 5 mg tablet 5 mg PO Q4H PRN (Reason: pain) Qty: 18 RF: 0 atorvastatin 40 mg Tablet 40 mg PO DAILY RF: 0 amlodipine 10 mg Tablet 10 mg PO DAILY RF: 0 hydralazine 50 mg Tablet 100 mg PO TID Qty: 0 RF: 0 pregabalin [Lyrica] 25 mg Capsule 25 mg PO BID Qty: 0 RF: 0 cyanocobalamin (vitamin B-12) [Vitamin B-12] 1,000 mcg Tablet 1,000 mcg PO DAILY Qty: 0 RF: 0 acetaminophen 325 mg Tablet 650 mg PO Q6H PRN (Reason: Pain) RF: 0 folic acid 1 mg tablet 1 mg PO DAILY RF: 0 (DME) miscellaneous medical supply Misc See Rx Instructions .MEDSUPPLY Qty: 1 RF: 0 Discontinued losartan 50 mg Tablet 100 mg PO DAILY Qty: 60 RF: 0 amoxicillin-pot clavulanate 500-125 mg tablet 1 tab PO BID RF: 0 Discharge Orders: Discharge Order (Routine); Ordered 09/12/21 Ordered By: Xavier Chaparro Diet: advance to usual diet Activity on Discharge: As tolerated Stand Alone Forms: Patient Portal Discharge page Care Plan Goals: Avoid hospitalizations Health Concerns: anemia of chronic disease, CKD 4 Plan of Treatment: Prilosec, follow-up with Nephrology, if further chest pain follow-up with Cardiology Assessment: see above
[2021-09-12 10:11] LABS: Hematocrit 27.9 % (37.0-47.0); Hemoglobin 8.9 g/dl (12.0-16.0); Mean Corpuscular HGB Conc 31.9 g/dl (31.0-35.0); Mean Corpuscular Hemoglobin 29.5 pg (27.0-33.0); Mean Corpuscular Volume 92.4 fL (80.0-98.0); Mean Platelet Volume 10.7 fL (9.4-12.3); Platelet Count 268 X10*3/uL (160-400); Red Blood Count 3.02 X10*6/uL (4.20-5.50); Red Cell Distribution Width 14.1 % (11.0-16.0); White Blood Count 9.2 X10*3/uL (4.8-10.8)
--- NOTE | 2021-09-12 10:18 | MHC.CM.PN ---
pt to return to [facility] at 12;30 dagter notified
[2021-09-12] MEDS: Isosorbide Mononitrate 30 MG TAB.ER.24H PO (11:20)
[2021-09-12] MEDS: Folic Acid 1 MG TABLET PO (11:20)
[2021-09-12] MEDS: 0.9 % Sodium Chloride Flush 3 ML SYRINGE IVFLUSH (11:20)
[2021-09-12] MEDS: Cyanocobalamin (Vitamin B-12) 1,000 MCG TABLET 1000 MCG PO (11:20)
[2021-09-12] MEDS: amLODIPine Besylate 10 MG TABLET PO (11:20)
[2021-09-12] MEDS: hydrALAZINE HCl 50 MG TABLET 100 MG PO (11:20)
[2021-09-12] MEDS: Atorvastatin Calcium 40 MG TABLET PO (11:20)
[2021-09-12] MEDS: Bumetanide 1 MG TABLET 2 MG PO (11:20)
[2021-09-12] MEDS: Multivitamin TABLET 1 TAB PO (11:21)
[2021-09-12] MEDS: Pregabalin 25 MG CAPSULE PO (11:21)
[2021-09-12 11:26] LABS: Influenza A PCR NEGATIVE (Negative); Influenza B PCR NEGATIVE (Negative); Resp Syncy Virus RNA Qual PCR NEGATIVE (Negative); SARS COV2 PCR INHOUSE NEGATIVE (Negative)
[2021-09-12 11:30] LABS: Anion Gap 20 (12-20); Blood Urea Nitrogen 76 mg/dL (9-16); Calcium 9.7 mg/dL (8.4-10.2); Carbon Dioxide 23 mmol/L (22-29); Chloride 102 mmol/L (96-108); Creatinine Clr Calc Pharmacy 14.5; Estimated Glomerular Filt Rate 14; Glucose Fasting 190 mg/dL (60-99); Sodium 140 mmol/L (135-145)
== END 2021-09-12 12:30 | disposition skilled nursing facility (03) | DRG 812 ==
LOC: HO.ED 19:37 → HO.EDOVER 22:34 → HO.IMC 09-11 08:02
PROVIDERS: Physician Assistant Medical; Admitting Provider Hospitalist; Emergency Provider Internal Medicine; PCP Internal Medicine; Visit Provider Internal Medicine
DX: D50.0 Iron deficiency anemia secondary to blood loss (chronic) (principal); I13.0 Hypertensive heart and chronic kidney disease with heart failure and stage 1 through stage 4 chronic kidney disease, or unspecified chronic kidney disease; G82.20 Paraplegia, unspecified; N17.9 Acute kidney failure, unspecified; I50.32 Chronic diastolic (congestive) heart failure; N18.4 Chronic kidney disease, stage 4 (severe); Z91.041 Radiographic dye allergy status; Z86.73 Personal history of transient ischemic attack (TIA), and cerebral infarction without residual deficits; E87.5 Hyperkalemia; E11.22 Type 2 diabetes mellitus with diabetic chronic kidney disease; D63.1 Anemia in chronic kidney disease; R19.5 Other fecal abnormalities; I50.9 Heart failure, unspecified; Z86.14 Personal history of Methicillin resistant Staphylococcus aureus infection; Z20.822 Contact with and (suspected) exposure to COVID-19; Z79.899 Other long term (current) drug therapy
CPT/HCPCS: 0241U; 36415; 71046; 74176; 80048; 80053; 82272; 82947; 83540; 83735; 84484; 85025; 85027; 85610; 86850; 86900; 86901; 86923; 87635; 93005; 99285; C1758; P9016

== ENCOUNTER 2022-07-11 12:43 | Inpatient (IN) | payer OTHER, SELFPAY ==
[2022-07-11] VITALS (8 sets, daily range): BP systolic 159–178; BP diastolic 7–102; PULSE 73–97; RESP 14–25; TEMP 35.9–37; O2SAT 85–98; BMI 33.8
--- NOTE | ~2022-07-11 | XR_ITS ---
EXAMINATION: XR CHEST CLINICAL INFORMATION: Short of breath. Hypoxia. COMPARISON: 09/10/2021 TECHNIQUE: Frontal view of the chest was obtained. FINDINGS: Cardiac leads overlie the chest. The lungs are well expanded. Diffuse bronchial wall thickening. No pleural effusion or pneumothorax. The cardiomediastinal silhouette is prominent, with a calcified aorta. XR/XR chest 1V IMPRESSION: No dense consolidation. Bronchial wall thickening can be seen with a small airways process such as asthma or atypical/viral infection. Edema also a consideration.
--- NOTE | 2022-07-11 13:05 | ECG_ITS ---
Test Reason : Dyspnea Blood Pressure : / mmHG Vent. Rate : 087 BPM Atrial Rate : 087 BPM P-R Int : 168 ms QRS Dur : 104 ms QT Int : 386 ms P-R-T Axes : 056 -32 075 degrees QTc Int : 464 ms Normal sinus rhythm Left axis deviation Intra-ventricular conduction delay Minimal voltage criteria for LVH, may be normal variant ( Carlitos product ) Abnormal ECG When compared with ECG of 10-SEP-2021 16:47, No significant change was found Referred By: Pauly Hernandez Electronically Signed By:ALBERTO ADAIR MD
--- NOTE | 2022-07-11 13:06 | ED_ITS ---
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 She states the pain is constant and is across her entire chest. It does not radiate elsewhere. She is also short of breath, worse when lying flat. She is not coughing or bringing up any phlegm. No fever or chills at home. She re ports chronic lower extremity edema that is worsening over the last several weeks. She is a poor historian, does not know what medication she is on at home. EMS found the patient hypoxic to 85% on room air. She was placed on 3 L nasal cannula brought to the ER for further evaluation MD elicited complaint: shortness of breath and chest pain Pertinent past history: congestive heart failure and diabetes Onset (ago): day(s) (2) Timing: constant Severity: moderate Exacerbating factors: lying flat Relieving factors: nothing Known history of: congestive heart failure Associated symptoms: chest pain, orthopnea and lower extremity pain Treatment prior to arrival: none Related Data Home oxygen amount: none Home Medications Medication Instructions Recorded Confirmed acetaminophen 325 mg tablet 650 mg PO Q6H PRN Pain 09/10/21 09/10/21 folic acid 1 mg tablet 1 mg PO DAILY 09/10/21 09/10/21 ferrous sulfate 325 mg (65 mg 1 tab PO TID 07/11/22 iron) tablet (FeroSul) Previous Rx's Medication Instructions Recorded miscellaneous medical supply #1 ea 10/17/20 miscellaneous medical supply #1 ea 12/26/20 oxycodone 5 mg tablet 5 mg PO Q4H PRN pain #18 tabs 04/17/21 omeprazole 40 mg capsule,delayed 40 mg PO DAILY #30 caps 09/12/21 release bumetanide 1 mg tablet 2 mg PO BID@0900,1800 90 days #180 02/06/22 tabs atorvastatin 40 mg tablet 40 mg PO DAILY 90 days #90 tabs 02/11/22 cyanocobalamin (vitamin B-12) 1,000 mcg PO DAILY 90 days #90 tabs 02/11/22 1,000 mcg tablet (Vitamin B-12) multivitamin with folic acid 400 1 tab PO DAILY 90 days #90 tabs 02/11/22 mcg tablet amlodipine 10 mg tablet 10 mg PO DAILY 90 days #90 tabs 05/08/22 hydralazine 50 mg tablet 100 mg PO TID #180 tabs 05/22/22 pregabalin 25 mg capsule (Lyrica) 25 mg PO BID 30 days #60 caps 06/12/22 isosorbide mononitrate 30 mg 30 mg PO DAILY #30 tabs 07/01/22 tablet,extended release 24 hr Allergies Allergy/AdvReac Type Severity Reaction Status Date / Time Iodinated Contrast Media Allergy Unknown UNKNOWN Verified 12/26/20 13:27 [IODINATED CONTRAST MEDIA] Review of Systems Review of Systems: Constitutional: No Fever, No Chills ENT/Mouth: No sore throat, No Rhinorrhea, No Swallowing Difficulty Eyes: No Eye Pain, No Swelling, No Redness Cardiovascular: + Chest Pain, + SOB, No Orthopnea, + Edema Respiratory: No Cough, No Sputum, No Wheezing, + dyspnea Gastrointestinal: No Nausea, No Vomiting, No Diarrhea, No abdominal Pain, No Hematochezia, No Melena Genitourinary: No Dysuria, No Urinary Frequency, No Hematuria Musculoskeletal: No joint pain, No Myalgias Skin: No Skin Lesions, No rash Neuro: + Weakness, No Numbness, No Dizziness, No Headache Psych: No Anxiety/Panic, No Depression Heme/Lymph: No Bruising, No Lymphadenopathy Endocrine: No Polyuria, No Polydipsia PMFSH Past Medical History Medical History Abscess of forearm, right Acute on chronic diastolic heart failure Acute respiratory failure with hypoxia Anemia B12 deficiency Chronic renal insufficiency CKD (chronic kidney disease) Congestive heart failure Diabetes Femoral artery stenosis Gram-positive bacteremia High cholesterol Hypertension Hypoxia Lower extremity edema Psoriasis of scalp PVD (peripheral vascular disease) Surgical History History of female sterilization History of shoulder surgery Family History Family History Father No problems noted. Mother No problems noted. Social History Social History Household Members: None Household Members Other:: Daughter Housing: House Do you presently have visiting nurse or other home services: Yes Alcohol intake: unknown Patient Tobacco Use Status: Never used Tobacco Smoked in Last 30 Days: No Use of substances other than those prescribed or required for medical reasons: Unknown Advance Directives: Yes Advance Directives on File: Yes Advance Directives Date on File: 04/18/21 service: No Current occupational status: retired and disabled Physical Exam Vital Signs: Vital Signs: Last Vital Signs Temp 98.6 F 07/11/22 13:24 Pulse 90 07/11/22 13:50 Resp 16 07/11/22 13:50 BP 174/63 H 07/11/22 13:50 Pulse Ox 97 07/11/22 13:50 O2 Del Method 07/11/22 13:50 O2 Flow Rate 3 07/11/22 13:50 Oxygen Flow Rate 1.5 07/11/22 12:55 BMI result Body Mass Index 33.8 Appearance: Alert. Oriented X3. No acute distress. Eyes: Pupils equal, round and reactive to light. ENT: Pharynx normal. Neck: Normal inspection. Neck supple. CVS: Normal heart rate and rhythm. Pulses normal. Respiratory: No respiratory distress. Breath sounds diminished at bilateral bases Abdomen: Soft and nontender. +BS x4 Skin: Skin warm and dry. Normal skin color. Normal skin turgor. No rashes. Extremities: 3+ lower extremity edema, tender throughout, warm and well perfused. no skin changes Neuro: Oriented X 3. Bilateral lower extremity weakness, nonfocal. Course Course Course Narrative: 82-year-old female with history of CHF, CKD, dm 2, PVD, anemia who presents to the ER for evaluation of shortness of breath and chest pain. Found to be hypoxic to 85% on room air at home. On examination she has bilateral lower extremity pitting edema. Most likely CHF exacerbation. Will get chest x-ray lab workup in EKG. Will check troponin as well, doubt ACS. She was given aspirin EN route. Hold off on nitro for now, pain is almost gone. Reevaluation(s) Reevaluation #1: Labs show her CKD is improved from her baseline. BNP is 492 from 131 last March. Troponin is 24.8. Will get 3 hour repeat. Her urinalysis is consistent with infection. Will treat with IV Rocephin. Will check lactic acid and cultures. She is not septic at this time. Reevaluation #2: Patient attempted to wean off of oxygen however dropped her oxygen saturations to 89%. Placed back on supplemental O2. IV Lasix administered. Will admit to the hospital for further management of acute CHF exacerbation. Medications Administered Discontinued Medications Generic Name Dose Route Start Last Admin Trade Name Freq PRN Reason Stop Dose Admin Ceftriaxone Sodium 1 gm/ 50 mls @ 100 mls/hr 07/11/22 15:23 07/11/22 16:14 Sodium Chloride IV 07/11/22 15:52 100 mls/hr ONCE ONE Administration MDM - SOB/Dyspnea Medical Records Attestation: I reviewed the patient's medical records. Lab Data Attestation: I reviewed the patient's lab results. Result diagrams: 07/11/22 15:45 07/11/22 15:45 Labs: Lab Results 07/11/22 07/11/22 07/11/22 Range/Units 14:14 14:38 15:45 WBC 8.7 (4.8-10.8) X10*3/uL RBC 2.67 L (4.20-5.50) X10*6/uL Hgb 7.5 L (12.0-16.0) g/dl Hct 24.1 L (37.0-47.0) % MCV 90.3 (80.0-98.0) fL MCH 28.1 (27.0-33.0) pg MCHC 31.1 (31.0-35.0) g/dl RDW 16.4 H (11.0-16.0) % Plt Count 240 (160-400) X10*3/uL MPV 10.5 (9.4-12.3) fL Immature Gran % (Auto) 1.2 H (0.0-0.4) % Neut % (Auto) 81.1 H (45-73) % Lymph % (Auto) 10.6 L (20-40) % [place] % (Auto) 5.2 (2-11) % Eos % (Auto) 1.3 (0-4) % Baso % (Auto) 0.6 (0-2) % Lymph # (Auto) 0.9 L (1.2-4.9) X10*3/uL [place] # (Auto) 0.5 (0.1-1.2) X10*3/uL Eos # (Auto) 0.1 (0.0-0.4) X10*3/uL Baso # (Auto) 0.1 (0.0-0.2) X10*3/uL Abs Immat Gran (auto) 0.10 H (0.00-0.03) X10*3/uL Absolute Neuts (auto) 7.1 (2.0-8.3) x10*3/uL Absolute Nucleated RBC 0.000 (0.0-0.012) X10*3/uL Nucleated RBC % (auto) 0.0 (0.0-0.2) /100WBC Sodium (135-145) mmol/L Potassium (3.3-5.1) mmol/L Chloride (96-108) mmol/L Carbon Dioxide (22-29) mmol/L Anion Gap (12-20) BUN (9-16) mg/dL Creatinine (0.5-1.4) mg/dL Estim Creat Clear Calc Estimated GFR Random Glucose (60-115) mg/dL Lactic Acid (0.5-2.0) mmol/L Calcium (8.4-10.2) mg/dL Magnesium (1.6-2.6) mg/dL Total Bilirubin (0.0-1.0) mg/dL Direct Bilirubin (0.0-0.5) mg/dL AST (5-31) U/L ALT (0-31) U/L Alkaline Phosphatase (39-117) U/L Troponin I High Sens (<3.5-17.0) ng/L B-Natriuretic Peptide (<100) pg/mL Total Protein (6.5-8.0) g/dL Albumin (3.5-5.0) g/dL Urine Color Yellow Urine Appearance Turbid Urine pH 5.5 (5.0-9.0) Ur Specific [place] 1.015 (1.005-1.025) Urine Protein 300 (3+) H (Neg-Trace) mg/dL Urine Glucose (UA) Negative (Negative) mg/dL Urine Ketones Negative (Negative) mg/dL Urine Blood Negative (Negative) Urine Nitrite Negative (Negative) Ur Leukocyte Esterase Large (3+) H (Negative) Urine RBC >20 H (0-2) /HPF Urine WBC >50 H (0-5) /HPF Ur Squamous Epith Cells 11-20 (0-2) /HPF Ur Transition Epith Cell None seen Ur Renal Epithelial Cell Present Urine Bacteria 4+ (None Seen) Hyaline Casts 3-5 (0-2) /LPF Influenza Type A (PCR) NEGATIVE (Negative) Influenza Type B (PCR) NEGATIVE (Negative) RSV RNA Qual (PCR) NEGATIVE (Negative) SARS-CoV-2 RNA (RT-PCR) NEGATIVE (Negative) 07/11/22 07/11/22 07/11/22 Range/Units 15:45 15:45 15:45 WBC (4.8-10.8) X10*3/uL RBC (4.20-5.50) X10*6/uL Hgb (12.0-16.0) g/dl Hct (37.0-47.0) % MCV (80.0-98.0) fL MCH (27.0-33.0) pg MCHC (31.0-35.0) g/dl RDW (11.0-16.0) % Plt Count (160-400) X10*3/uL MPV (9.4-12.3) fL Immature Gran % (Auto) (0.0-0.4) % Neut % (Auto) (45-73) % Lymph % (Auto) (20-40) % [place] % (Auto) (2-11) % Eos % (Auto) (0-4) % Baso % (Auto) (0-2) % Lymph # (Auto) (1.2-4.9) X10*3/uL [place] # (Auto) (0.1-1.2) X10*3/uL Eos # (Auto) (0.0-0.4) X10*3/uL Baso # (Auto) (0.0-0.2) X10*3/uL Abs Immat Gran (auto) (0.00-0.03) X10*3/uL Absolute Neuts (auto) (2.0-8.3) x10*3/uL Absolute Nucleated RBC (0.0-0.012) X10*3/uL Nucleated RBC % (auto) (0.0-0.2) /100WBC Sodium 144 (135-145) mmol/L Potassium 3.8 D (3.3-5.1) mmol/L Chloride 111 H (96-108) mmol/L Carbon Dioxide 23 (22-29) mmol/L Anion Gap 14 (12-20) BUN 60 H (9-16) mg/dL Creatinine 2.69 H (0.5-1.4) mg/dL Estim Creat Clear Calc 20.0 Estimated GFR 17 Random Glucose 183 H (60-115) mg/dL Lactic Acid (0.5-2.0) mmol/L Calcium 9.4 (8.4-10.2) mg/dL Magnesium 1.8 (1.6-2.6) mg/dL Total Bilirubin 0.4 (0.0-1.0) mg/dL Direct Bilirubin < 0.2 (0.0-0.5) mg/dL AST 9 (5-31) U/L ALT < 6 (0-31) U/L Alkaline Phosphatase 79 (39-117) U/L Troponin I High Sens 24.8 H D (<3.5-17.0) ng/L B-Natriuretic Peptide 492 H (<100) pg/mL Total Protein 7.0 (6.5-8.0) g/dL Albumin 3.6 (3.5-5.0) g/dL Urine Color Urine Appearance Urine pH (5.0-9.0) Ur Specific [place] (1.005-1.025) Urine Protein (Neg-Trace) mg/dL Urine Glucose (UA) (Negative) mg/dL Urine Ketones (Negative) mg/dL Urine Blood (Negative) Urine Nitrite (Negative) Ur Leukocyte Esterase (Negative) Urine RBC (0-2) /HPF Urine WBC (0-5) /HPF Ur Squamous Epith Cells (0-2) /HPF Ur Transition Epith Cell Ur Renal Epithelial Cell Urine Bacteria (None Seen) Hyaline Casts (0-2) /LPF Influenza Type A (PCR) (Negative) Influenza Type B (PCR) (Negative) RSV RNA Qual (PCR) (Negative) SARS-CoV-2 RNA (RT-PCR) (Negative) 07/11/22 Range/Units 15:45 WBC (4.8-10.8) X10*3/uL RBC (4.20-5.50) X10*6/uL Hgb (12.0-16.0) g/dl Hct (37.0-47.0) % MCV (80.0-98.0) fL MCH (27.0-33.0) pg MCHC (31.0-35.0) g/dl RDW (11.0-16.0) % Plt Count (160-400) X10*3/uL MPV (9.4-12.3) fL Immature Gran % (Auto) (0.0-0.4) % Neut % (Auto) (45-73) % Lymph % (Auto) (20-40) % [place] % (Auto) (2-11) % Eos % (Auto) (0-4) % Baso % (Auto) (0-2) % Lymph # (Auto) (1.2-4.9) X10*3/uL [place] # (Auto) (0.1-1.2) X10*3/uL Eos # (Auto) (0.0-0.4) X10*3/uL Baso # (Auto) (0.0-0.2) X10*3/uL Abs Immat Gran (auto) (0.00-0.03) X10*3/uL Absolute Neuts (auto) (2.0-8.3) x10*3/uL Absolute Nucleated RBC (0.0-0.012) X10*3/uL Nucleated RBC % (auto) (0.0-0.2) /100WBC Sodium (135-145) mmol/L Potassium (3.3-5.1) mmol/L Chloride (96-108) mmol/L Carbon Dioxide (22-29) mmol/L Anion Gap (12-20) BUN (9-16) mg/dL Creatinine (0.5-1.4) mg/dL Estim Creat Clear Calc Estimated GFR Random Glucose (60-115) mg/dL Lactic Acid 0.9 (0.5-2.0) mmol/L Calcium (8.4-10.2) mg/dL Magnesium (1.6-2.6) mg/dL Total Bilirubin (0.0-1.0) mg/dL Direct Bilirubin (0.0-0.5) mg/dL AST (5-31) U/L ALT (0-31) U/L Alkaline Phosphatase (39-117) U/L Troponin I High Sens (<3.5-17.0) ng/L B-Natriuretic Peptide (<100) pg/mL Total Protein (6.5-8.0) g/dL Albumin (3.5-5.0) g/dL Urine Color Urine Appearance Urine pH (5.0-9.0) Ur Specific [place] (1.005-1.025) Urine Protein (Neg-Trace) mg/dL Urine Glucose (UA) (Negative) mg/dL Urine Ketones (Negative) mg/dL Urine Blood (Negative) Urine Nitrite (Negative) Ur Leukocyte Esterase (Negative) Urine RBC (0-2) /HPF Urine WBC (0-5) /HPF Ur Squamous Epith Cells (0-2) /HPF Ur Transition Epith Cell Ur Renal Epithelial Cell Urine Bacteria (None Seen) Hyaline Casts (0-2) /LPF Influenza Type A (PCR) (Negative) Influenza Type B (PCR) (Negative) RSV RNA Qual (PCR) (Negative) SARS-CoV-2 RNA (RT-PCR) (Negative) ECG Data Attestation: I personally reviewed and interpreted this ECG as follows: ECG interpretation date: 07/11/22 ECG interpretation time: 16:55 Prior ECG tracings: available for review Interpretation: Normal sinus rhythm, left axis deviation, QRS prolonged 104 MS, normal TX interval, normal QTC, no significant change from August 2021. No ST segment elevations or depressions. Critical Care Time Critical Care Time Critical Care Time: Yes Total Critical Care Time: 35 Attestation: I have personally provided critical care time exclusive of time spent on sep arately billable procedures. Time includes review of lab data, radiology results, discussion with consultants, and monitoring for potential decompensation. Intervention performed as documented. Discharge Plan Discharge Clinical Impression: Acute exacerbation of CHF (congestive heart failure) Patient Disposition: Admitted As Inpatient
--- NOTE | 2022-07-11 13:33 | PC.NURSE ---
pt moved out of hallway to monitored room, complaining of mid sternal cp as well as pain with urination. denies home o2 use. satting 96% on 1.5l.
[2022-07-11 14:55] LABS: Appearance Urine Turbid; Color Urine Yellow; Glucose Urine UA Negative (Negative); Leukocyte Esterase Urine Large (3+) (Negative); Nitrite Urine Negative (Negative); PH 5.5 (5.0-9.0); Specific Gravity - Urine 1.015 (1.005-1.025); UMIC TRIGGER UACC YES; Urine Blood Negative (Negative); Urine Ketones Negative (Negative); Urine Protein 300 (3+) mg/dL (Neg-Trace)
[2022-07-11 14:57] LABS: Influenza A PCR NEGATIVE (Negative); Influenza B PCR NEGATIVE (Negative); Resp Syncy Virus RNA Qual PCR NEGATIVE (Negative); SARS COV2 PCR INHOUSE NEGATIVE (Negative)
[2022-07-11 15:40] LABS: Bacteria Urine 4+ (None Seen); RBC Urine >20 /HPF (0-2); Renal Epithelial Cells Urine Present; UACC Culture Trigger YES; WBC Urine >50 /HPF (0-5)
[2022-07-11 15:41] LABS: Transitional Epi Cells Urine None seen
[2022-07-11 15:52] LABS: MANUAL DIFF FLAG NO
[2022-07-11 16:10] LABS: Basophils Absolute Auto 0.1 X10*3/uL (0.0-0.2); Basophils Percent Auto 0.6 % (0-2); Eosinophils Absolute Auto 0.1 X10*3/uL (0.0-0.4); Eosinophils Percent Auto 1.3 % (0-4); Hematocrit 24.1 % (37.0-47.0); Hemoglobin 7.5 g/dl (12.0-16.0); Imm Gran Pct Auto 1.2 % (0.0-0.4); Lymphocytes Absolute Auto 0.9 X10*3/uL (1.2-4.9); Lymphocytes Percent Auto 10.6 % (20-40); Mean Corpuscular HGB Conc 31.1 g/dl (31.0-35.0); Mean Corpuscular Hemoglobin 28.1 pg (27.0-33.0); Mean Corpuscular Volume 90.3 fL (80.0-98.0); Mean Platelet Volume 10.5 fL (9.4-12.3); Monocytes Absolute Auto 0.5 X10*3/uL (0.1-1.2); Monocytes Percent Auto 5.2 % (2-11); Neutrophils Absolute Auto 7.1 x10*3/uL (2.0-8.3); Neutrophils Percent Auto 81.1 % (45-73); Platelet Count 240 X10*3/uL (160-400); Red Blood Count 2.67 X10*6/uL (4.20-5.50); Red Cell Distribution Width 16.4 % (11.0-16.0); White Blood Count 8.7 X10*3/uL (4.8-10.8)
[2022-07-11] MEDS: cefTRIAXone sodium 1 GM in 0.9 % Sodium Chloride 50 ML IV (16:14)
[2022-07-11 16:15] LABS: Lactic Acid 0.9 mmol/L (0.5-2.0)
[2022-07-11 16:22] LABS: Alanine Aminotransferase < 6 U/L (0-31); Albumin Level 3.6 g/dL (3.5-5.0); Alkaline Phosphatase 79 U/L (39-117); Anion Gap 14 (12-20); Aspartate Amino Transferase 9 U/L (5-31); Bilirubin Direct < 0.2 mg/dL (0.0-0.5); Bilirubin Total 0.4 mg/dL (0.0-1.0); Blood Urea Nitrogen 60 mg/dL (9-16); Calcium 9.4 mg/dL (8.4-10.2); Carbon Dioxide 23 mmol/L (22-29); Chloride 111 mmol/L (96-108); Estimated Glomerular Filt Rate 17; Glucose Random 183 mg/dL (60-115); Magnesium 1.8 mg/dL (1.6-2.6); Potassium 3.8 mmol/L (3.3-5.1); Sodium 144 mmol/L (135-145)
[2022-07-11 16:26] LABS: B Type Natriuretic Peptide 492 pg/mL (<100); Troponin-I High Sensitivity 24.8 ng/L (<3.5-17.0)
[2022-07-11] MEDS: Furosemide 100 MG/10 ML VIAL 60 MG IVPUSH (17:31)
--- NOTE | 2022-07-11 17:42 | P.HPHOSP_ITS ---
History of Present Illness Date of Service: 07/11/22 Attending physician on admission: Tara Patel Chief Complaint: shortness of breath this is an 82-year-old Bulgarian-speaking female with multiple medical problems who presents to the emergency department today with shortness of b reath. History was obtained with the assistance of her daughter at the bedside. Patient was in her usual state of health until today when she had sudden onset of shortness of breath. She has associated dry cough. Denies any fever, chills. No chest pain at this time. At home her daughter checked her oxygen saturation she was noted to be in the 80s. She came to the emergency department for evaluation, chest x-ray showed evidence of fluid overload, BNP was elevated at 492. She afebrile, covid was negative. She was initially placed on 2 L of supplemental oxygen, she was trialed off oxygen and her oxygen saturation dropped to 88% on room air. She is currently saturating 94% on 2 L. She was given a dose of IV Lasix and the decision was made to admit her to the hospital for further management with working diagnosis of acute on chronic CHF. Review of Systems Review of Systems: Yes Unobtainable due to mental status Constitutional: Constitutional: Denies chills and Denies fever(s) Cardiovascular: Cardiovascular: Denies chest pain, Denies palpitations and Reports dyspnea Respiratory: Respiratory: Reports cough and Reports dyspnea Gastrointestinal: Gastrointestinal: Denies abdominal pain, Denies nausea and Denies vomiting Endocrine: Endocrine: Denies palpitations [facility] Medical History Abscess of forearm, right Acute on chronic diastolic heart failure Acute respiratory failure with hypoxia Anemia B12 deficiency Chronic renal insufficiency CKD (chronic kidney disease) Congestive heart failure Diabetes Femoral artery stenosis Gram-positive bacteremia High cholesterol Hypertension Hypoxia Lower extremity edema Psoriasis of scalp PVD (peripheral vascular disease) Family History Father No problems noted. Mother No problems noted. Pertinent family history: multiple family members with history of diabetes Surgical History History of female sterilization History of shoulder surgery Social History Household Members: Family Household Members Other:: Daughter Housing: House Do you presently have visiting nurse or other home services: Yes Alcohol intake: unknown Patient Tobacco Use Status: Never used Tobacco Advance Directives Date on File: 04/18/21 service: No Current occupational status: retired and disabled Meds Allergies Allergy/AdvReac Type Severity Reaction Status Date / Time Iodinated Contrast Media Allergy Unknown UNKNOWN Verified 12/26/20 13:27 [IODINATED CONTRAST MEDIA] Active Medications: Current Medications Acetaminophen (Acetaminophen 325 Mg Tablet) 650 mg PO Q6H PRN PRN Reason: Pain, Mild (Pain Scale 1-3) Dextrose (Dextrose 50 % 25 Gm/50 Ml Syringe) 25 gm IVPUSH Q15M PRN; Protocol PRN Reason: per Hypoglycemia Standing Ord. Docusate Sodium (Docusate Sodium 100 Mg Capsule) 100 mg PO DAILY PRN PRN Reason: Constipation Glucose (Glucose Gel 15 Gm Gel..Gram.) 15 gm PO Q15M PRN; Protocol PRN Reason: per Hypoglycemia Standing Ord. Insulin Human Lispro (Insulin Lispro 100 Unit/Ml 3 Ml Vial) 0 unit [facility]; Protocol Ondansetron HCl (Ondansetron Hcl 4 Mg/2 Ml Vial) 4 mg IVPUSH Q8H PRN PRN Reason: Nausea and Vomiting Pharmacy Consult (Consult Rx Perform Med Rec) 1 each MISCELLANE ONCE PRN PRN Reason: Consult order Sodium Chloride (0.9 % Sodium Chloride Flush 3 Ml Syringe) 3 ml IVFLUSH [facility] Home Medications Medication Instructions Recorded Confirmed Last Taken Type acetaminophen 325 mg tablet 650 mg PO Q6H PRN Pain 09/10/21 07/11/22 Unknown History ferrous sulfate 325 mg (65 mg 1 tab PO TID 07/11/22 07/11/22 07/10/22 History iron) tablet (FeroSul) omeprazole 40 mg capsule,delayed 40 mg PO DAILY PRN Acid Reflux 07/11/22 07/11/22 Unknown History release Physical Exam Vital Signs and Narrative: Vital Signs: Last Vital Signs Temp 97.7 F 07/11/22 16:52 Pulse 83 07/11/22 16:52 Resp 18 07/11/22 16:52 BP 159/7 H 07/11/22 16:52 Pulse Ox 94 07/11/22 16:54 O2 Del Method 07/11/22 16:54 O2 Flow Rate 2 07/11/22 16:54 Oxygen Flow Rate 1.5 07/11/22 12:55 BMI result Body Mass Index 33.8 Const: General: cooperative, comfortable, alert and awake Nutritional Appearance: overweight Orientation/consciousness: patient oriented x3 Resp: Other: basilar crackles Effort & Inspection: normal respiratory effort and able to speak in complete sentences Cardio: Jugular venous distension: JVD Rate: regular rate Heart sounds: S1 normal heart sound present and S2 normal heart sound present GI: Inspection: No distended Palpation (GI): Soft to palpation Neuro: General: patient oriented x3 Extrem: Other: able to move all 4 extremities ; b/l leg edema Results Labs CBC and Chem 7: 07/13/22 06:58 07/13/22 06:58 Labs: Laboratory Results - last 24 hr 07/11/22 07/11/22 07/11/22 14:14 14:38 15:45 MCV 90.3 MCH 28.1 MCHC 31.1 RDW 16.4 H Plt Count 240 MPV 10.5 Immature Gran % (Auto) 1.2 H Neut % (Auto) 81.1 H Lymph % (Auto) 10.6 L [place] % (Auto) 5.2 Eos % (Auto) 1.3 Baso % (Auto) 0.6 Lymph # (Auto) 0.9 L [place] # (Auto) 0.5 Eos # (Auto) 0.1 Baso # (Auto) 0.1 Abs Immat Gran (auto) 0.10 H Absolute Neuts (auto) 7.1 Absolute Nucleated RBC 0.000 Nucleated RBC % (auto) 0.0 Anion Gap Estim Creat Clear Calc Estimated GFR Random Glucose Lactic Acid Calcium Magnesium Total Bilirubin Direct Bilirubin AST ALT Alkaline Phosphatase Troponin I High Sens B-Natriuretic Peptide Total Protein Albumin Urine Color Yellow Urine Appearance Turbid Urine pH 5.5 Ur Specific [place] 1.015 Urine Protein 300 (3+) H Urine Glucose (UA) Negative Urine Ketones Negative Urine Blood Negative Urine Nitrite Negative Ur Leukocyte Esterase Large (3+) H Urine RBC >20 H Urine WBC >50 H Ur Squamous Epith Cells 11-20 Ur Transition Epith Cell None seen Ur Renal Epithelial Cell Present Urine Bacteria 4+ Hyaline Casts 3-5 Influenza Type A (PCR) NEGATIVE Influenza Type B (PCR) NEGATIVE RSV RNA Qual (PCR) NEGATIVE SARS-CoV-2 RNA (RT-PCR) NEGATIVE 07/11/22 07/11/22 07/11/22 15:45 15:45 15:45 MCV MCH MCHC RDW Plt Count MPV Immature Gran % (Auto) Neut % (Auto) Lymph % (Auto) [place] % (Auto) Eos % (Auto) Baso % (Auto) Lymph # (Auto) [place] # (Auto) Eos # (Auto) Baso # (Auto) Abs Immat Gran (auto) Absolute Neuts (auto) Absolute Nucleated RBC Nucleated RBC % (auto) Anion Gap 14 Estim Creat Clear Calc 20.0 Estimated GFR 17 Random Glucose 183 H Lactic Acid Calcium 9.4 Magnesium 1.8 Total Bilirubin 0.4 Direct Bilirubin < 0.2 AST 9 ALT < 6 Alkaline Phosphatase 79 Troponin I High Sens 24.8 H D B-Natriuretic Peptide 492 H Total Protein 7.0 Albumin 3.6 Urine Color Urine Appearance Urine pH Ur Specific [place] Urine Protein Urine Glucose (UA) Urine Ketones Urine Blood Urine Nitrite Ur Leukocyte Esterase Urine RBC Urine WBC Ur Squamous Epith Cells Ur Transition Epith Cell Ur Renal Epithelial Cell Urine Bacteria Hyaline Casts Influenza Type A (PCR) Influenza Type B (PCR) RSV RNA Qual (PCR) SARS-CoV-2 RNA (RT-PCR) 07/11/22 15:45 MCV MCH MCHC RDW Plt Count MPV Immature Gran % (Auto) Neut % (Auto) Lymph % (Auto) [place] % (Auto) Eos % (Auto) Baso % (Auto) Lymph # (Auto) [place] # (Auto) Eos # (Auto) Baso # (Auto) Abs Immat Gran (auto) Absolute Neuts (auto) Absolute Nucleated RBC Nucleated RBC % (auto) Anion Gap Estim Creat Clear Calc Estimated GFR Random Glucose Lactic Acid 0.9 Calcium Magnesium Total Bilirubin Direct Bilirubin AST ALT Alkaline Phosphatase Troponin I High Sens B-Natriuretic Peptide Total Protein Albumin Urine Color Urine Appearance Urine pH Ur Specific [place] Urine Protein Urine Glucose (UA) Urine Ketones Urine Blood Urine Nitrite Ur Leukocyte Esterase Urine RBC Urine WBC Ur Squamous Epith Cells Ur Transition Epith Cell Ur Renal Epithelial Cell Urine Bacteria Hyaline Casts Influenza Type A (PCR) Influenza Type B (PCR) RSV RNA Qual (PCR) SARS-CoV-2 RNA (RT-PCR) Imaging Radiologist's Impressions: Impressions Chest X-Ray 07/11/22 13:30 IMPRESSION: No dense consolidation. Bronchial wall thickening can be seen with a small airways process such as asthma or atypical/viral infection. Edema also a consideration. Assessment and Plan (1) Acute exacerbation of CHF (congestive heart failure): Status: Acute Plan This is an 82 year old Bulgarian-speaking female with history of CKD 4, hypertension, hyperlipidemia, diabetes, stroke, HFpEF who presents to the emergency department with shortness of breath found to have fluid overload Acute respiratory failure with hypoxia r/t CHF treat chf, wean oxygen as tolerated Acute on chronic HFpEF follow Is&Os and daily weights low Na+ diet troponin slightly elevated, likely r/t CKD - repeat trop pending was previously on bumex, but no longer takes -received 60 of IV Lasix in the ED, will hold off on further diuresis at this time. Reassess volume status in the morning -cardiology consult Possible UTI received a dose of ceftriaxone in the emergency department afebrile, no leukocytosis -follow urine culture CKD4 creatinine at baseline Chronc anemia likely of chronic disease follow CBC DM SSI, POCs, ADA diet ?not on baseline meds will check hba1c HLD continue statin HTN continue norvasc, hydralazine, imdur dvt ppx - mechanical devices code status - full code HCP - daughter Emilee attending - dr. patel patient will likely require 2 midnight stay in the hospital for management of acute CHF requiring IV diuresis Quality Stroke Does the patient have a stroke diagnosis?: No VTE Prior VTE?: No VTE Risk Level:: Medical - moderate - high VTE Device Contraindication: N/A - Device Ordered VTE Drug Contraindication: Treatment Not Indicated
--- NOTE | 2022-07-11 17:53 | PC.NURSE ---
pt is bedbound, hx of stroke w inability to ambulate, urinary and bowel incontinence at baseline. pt is receiving diuretics tx, purewick placed to help prevent moisture breakdown/ I and Os.
--- NOTE | 2022-07-11 18:08 | PHA.MEDREC ---
Pharmacy Consult ? Medication Reconciliation Pharmacy has completed the medication reconciliation. Pt's daughters at bedside, one of which said to be her [employer]. She noted she has a whole list, I don't know what they are I just give them to her. I showed her my print out of the claim history and she was able to confirm most medications, and was able to name hydralazine before showing it to her. Contacted provider about her being unsure of amlodipine, and due to her last fill we decided to continue it.
[2022-07-11 19:27] LABS: Troponin-I High Sensitivity 28.8 ng/L (<3.5-17.0)
[2022-07-11 20:22] LABS: Glucose, Whole Blood 164 mg/dL (60-115)
[2022-07-11] MEDS: Insulin Lispro 100 UNIT/ML 3 ML VIAL SUBCUT (20:24)
[2022-07-11] MEDS: Pregabalin 25 MG CAPSULE PO (20:25)
[2022-07-11] MEDS: Ferrous Sulfate 324 MG TABLET.DR PO (20:25)
[2022-07-11] MEDS: hydrALAZINE HCl 50 MG TABLET 100 MG PO (20:25)
--- NOTE | 2022-07-11 21:31 | PC.NURSE ---
Nurse to nurse report provided to DENISE Goldstein at overflow.
[2022-07-12] VITALS (11 sets, daily range): BP systolic 147–174; BP diastolic 47–78; PULSE 59–81; RESP 12–21; TEMP 35.8–37.1; O2SAT 93–100
--- NOTE | 2022-07-12 00:01 | PC.NURSE ---
patient sleeping. resp are equal and unlabored. no cough noted. call story within reach. bed in lowest locked position for safety
[2022-07-12 06:59] LABS: Hematocrit 23.9 % (37.0-47.0); Hemoglobin 7.2 g/dl (12.0-16.0); Mean Corpuscular HGB Conc 30.1 g/dl (31.0-35.0); Mean Corpuscular Hemoglobin 27.3 pg (27.0-33.0); Mean Corpuscular Volume 90.5 fL (80.0-98.0); Platelet Count 226 X10*3/uL (160-400); Red Blood Count 2.64 X10*6/uL (4.20-5.50); Red Cell Distribution Width 16.3 % (11.0-16.0); White Blood Count 6.1 X10*3/uL (4.8-10.8)
[2022-07-12 07:23] LABS: Glucose, Whole Blood 91 mg/dL (60-115)
[2022-07-12] MEDS: Ferrous Sulfate 324 MG TABLET.DR PO ×3 (07:43→22:18)
[2022-07-12] MEDS: amLODIPine Besylate 10 MG TABLET PO (07:43)
[2022-07-12] MEDS: Isosorbide Mononitrate 30 MG TAB.ER.24H PO (07:43)
[2022-07-12] MEDS: hydrALAZINE HCl 50 MG TABLET 100 MG PO ×3 (07:43→22:16)
[2022-07-12] MEDS: Atorvastatin Calcium 40 MG TABLET PO (07:43)
[2022-07-12 08:16] LABS: Anion Gap 14 (12-20); Blood Urea Nitrogen 58 mg/dL (9-16); Calcium 8.9 mg/dL (8.4-10.2); Carbon Dioxide 22 mmol/L (22-29); Chloride 112 mmol/L (96-108); Estimated Glomerular Filt Rate 17; Glucose Random 104 mg/dL (60-115); Potassium 3.9 mmol/L (3.3-5.1); Sodium 144 mmol/L (135-145)
[2022-07-12 08:17] LABS: Estimated Average Glucose 120 mg/dL; Hemoglobin A1c % 5.8 %
--- NOTE | 2022-07-12 11:29 | CA_ITS ---
Transthoracic Echocardiogram Patient (Last, First, Middle): Kay Cuadra, H Gender: Female Date of : 1940 Age: 82 Procedure Date: 07/12/2022 Procedure Type: Transthoracic Echocardiogram Location: ER Height: 173. cm Weight: 101. kg BSA: 2.14 m2 Heart Rate: 77 bpm BP: 155 / 61 mmHg Recycle Coordinator: MONICA Galindo MD: Erlinda RANKIN Director Of Direct Marketing: Noé Deal MD Symptoms: chf Study Quality: Fair ECG Rhythm: Sinus Conclusions: - 1. Low normal LV systolic function with impaired relaxation filling pattern with elevated filling pressures 2. Mildly dilated left atrium 3. Mild mitral regurgitation 4. Normal RV systolic pressure 5. Small pericardial effusion Findings Left Ventricle Normal left ventricular cavity size. There is normal left ventricular wall thickness. The left ventricular systolic function is low normal. The visually estimated ejection fraction is between 50-55%. Spectral Doppler is indicative of an impaired relaxation filling pattern. Elevated filling pressures. E/E prime ratio is >15, consistent with elevated filling pressures. Right Ventricle Normal right ventricular cavity size and systolic function. Atria The left atrium is mildly dilated. Interatrial shunt cannot be excluded. The right atrium is likely dilated. Aortic Valve There is mild calcification of the aortic valve. There is no aortic valve stenosis. There is no aortic valve regurgitation. Mitral Valve There is mild anterior and posterior mitral leaflet thickening. There is moderate mitral annular calcification. There is mild mitral valve regurgitation. There is no mitral valve stenosis. Pulmonic Valve The pulmonic valve was not well visualized. Tricuspid Valve Likely normal tricuspid valve structure and function. There is mild tricuspid valve regurgitation. The right ventricular systolic pressure is normal. The right ventricular systolic pressure is 28 mmHg. There is no evidence of pulmonary hypertension. Great Vessels All visible segments of the aorta are normal in size. Venous The inferior vena cava is normal in size and collapses greater than 50% with inspiration. Pericardium/Pleural There is a small circumferential pericardial effusion. Measurements 2D Linear Measurements IVSd: 1.04 0.6-0.9/0.6-1.0 cm LVIDd: 6.03 3.9-5.3/4.2-5.9 cm LVIDd Index: 2.82 2.4-3.2/2.2-3.1 cm/m2 LVIDs: 4.10 2.0-3.6 cm LVPWd: 0.98 0.7-1.1 cm LA Diam: 4.30 2.7-3.8/3.0-4.0 cm LAIDs Index: 2.01 1.5-2.3 cm/m2 LV Mass: 314.50 67-162/88-224 g LV Mass Index: 146.96 43-95/49-115 g/m2 LVOT Diam: 1.90 3.0+(-)1.3 cm 2D Systolic Function EF 4C: 54.70 >55% EF 2C: 45.60 >55% EF BiP: 49.80 >55% Mitral Valve MV Pk E: 1.27 MV PK A: 1.49 MV Decel Time: 187.00 E/A: 0.90 E'Lateral: 4.64 E'Medial: 3.68 E/E' Med: 34.50 E/E' Lat: 27.40 PHT: 55.00 MVA PHT: 4.00 Decel Mingo: 6.77 Aortic Valve AoV Pk Alejo: 2.08 AoV Mn Alejo: 1.42 AoV VTI: 0.44 AoV Pk Grad: 17.00 Aov Mn Grad: 9.00 OSWALDO Cont.VTI: 2.13 LVOT LVOT Pk Alejo: 1.32 LVOT Mn Alejo: 0.99 LVOT VTI: 0.33 LVOT Pk Grad: 7.00 LVOT Mn Grad: 4.00 LVOT Diam: 1.90 LVOT Area: 2.84 Diastolic Function MV Pk E: 1.27 MV Pk A: 1.49 E/A: 0.90 E'Medial: 3.68 E/E' Med: 34.50 E' Laterial: 4.64 E/E' Lat: 27.40 Right Ventricle TAPSE (mm): 24.00 TVS' Alejo: 17.70 Tricuspid Valve TR Pk Alejo: 2.52 TR Pk Grad: 25.00 RA Press: 3.00 RVSP: 28.00 Great Vessels Aorta Sinus of Valsalva: 2.90 2.0-3.5 cm Ao Asc: 3.40 2.1-3.4 cm Pulmonary Valve PV Pk Alejo: 1.25 Peak PV Grad: 6.00 Updated in Other Vendor System with Status of Final Noé Deal MD electronically signed on 07/12/2022 4:08:07 PM with status of Final
--- NOTE | 2022-07-12 11:40 | P.CONCA_ITS ---
History of Present Illness History of Present Illness Date of Service: 07/12/22 Requesting physician: Erlinda Mancilla Consult reason: congestive heart failure Chief complaint: dyspnea Narrative: I was consulted to see Justyna in cardiology consultation today because of shortness of breath. History was obtained with help of diplomatic interpreter/translator. Despite the diplomatic interpreter/translator patient is not a good historian. She continued to be focused on her condition at home and not able to have additional help at home. She also complains of right parasternal pain which he describes as tightness has been present for a week and has been continuously present for a week. This does not get worse with deep breathing or with cough. However it is tender to touch with similar discomfort. She came to the hospital with increasing leg swelling and shortness of breath as recorded. Noted to have decompensated heart failure with elevated BNP. She also is noted to be significantly anemic with hematocrit of 23.9 which appears to be chronic. Unclear etiology. She also has chronic kidney disease with creatinine in the upper 2s. She has prior history of heart failure preserved ejection fraction, peripheral vascular disease, neuropathy which has made her bed-bound as per her. She is been in bed for about a year as per her. She does not know if her legs are swollen. She denies any shortness of breath to me but that is a presenting symptom as per the hospitalist's note. Review of Systems Constitutional: Constitutional: Reports no additional constitutional complaints Eyes: Eyes: Reports no additional eye complaints Cardiovascular: Cardiovascular: Reports chest pain at rest, Reports leg edema, Denies lightheadedness, Denies Loss of Consciousness, Denies palpitations and Reports dyspnea Respiratory: Respiratory: Reports no additional respiratory complaints and Reports dyspnea Gastrointestinal: Gastrointestinal: Reports no additional gastrointestinal complaints Genitourinary: Genitourinary: Reports no additional female genitourinary complaints Musculoskeletal: Musculoskeletal: Reports no additional musculoskeletal com plaints Integumentary/Breasts: Skin/Breast: Reports system reviewed and no additional complaints, except as docu Neurologic: Reports system reviewed and no additional complaints, except as documented Psychiatric: Psychiatric: Reports no additional psychiatric complaints Endocrine: Endocrine: Denies palpitations PMFSH Past Medical History Medical History Abscess of forearm, right Acute on chronic diastolic heart failure Acute respiratory failure with hypoxia Anemia B12 deficiency Chronic renal insufficiency CKD (chronic kidney disease) Congestive heart failure Diabetes Femoral artery stenosis Gram-positive bacteremia High cholesterol Hypertension Hypoxia Lower extremity edema Psoriasis of scalp PVD (peripheral vascular disease) Family History Family History Father No problems noted. Mother No problems noted. Surgical History Surgical History History of female sterilization History of shoulder surgery Social History Social History Household Members: None Household Members Other:: Daughter Housing: House Do you presently have visiting nurse or other home services: Yes Alcohol intake: unknown Patient Tobacco Use Status: Never used Tobacco Smoked in Last 30 Days: No Use of substances other than those prescribed or required for medical reasons: Unknown Advance Directives: Yes Advance Directives on File: Yes Advance Directives Date on File: 04/18/21 service: No Current occupational status: retired and disabled Meds Allergies Allergy/AdvReac Type Severity Reaction Status Date / Time Iodinated Contrast Media Allergy Unknown UNKNOWN Verified 12/26/20 13:27 [IODINATED CONTRAST MEDIA] Active Medications: Current Medications Acetaminophen (Acetaminophen 325 Mg Tablet) 650 mg PO Q6H PRN PRN Reason: Pain, Mild (Pain Scale 1-3) Amlodipine Besylate (Amlodipine Besylate 10 Mg Tablet) 10 mg PO DAILY [facility]; Protocol Last Admin: 07/12/22 07:43 Dose: 10 mg Atorvastatin Calcium (Atorvastatin Calcium 40 Mg Tablet) 40 mg PO DAILY [facility] Last Admin: 07/12/22 07:43 Dose: 40 mg Dextrose (Dextrose 50 % 25 Gm/50 Ml Syringe) 25 gm IVPUSH Q15M PRN; Protocol PRN Reason: per Hypoglycemia Standing Ord. Docusate Sodium (Docusate Sodium 100 Mg Capsule) 100 mg PO DAILY PRN PRN Reason: Constipation Ferrous Sulfate (Ferrous Sulfate 324 Mg Tablet.Dr) 324 mg PO TID [facility] Last Admin: 07/12/22 07:43 Dose: 324 mg Glucose (Glucose Gel 15 Gm Gel..Gram.) 15 gm PO Q15M PRN; Protocol PRN Reason: per Hypoglycemia Standing Ord. Hydralazine HCl (Hydralazine Hcl 50 Mg Tablet) 100 mg PO TID [facility]; Protocol Last Admin: 07/12/22 07:43 Dose: 100 mg Bumetanide 25 mg/ IV (Miscellaneous Supplies) 100 mls @ 2 mls/hr IVCONT .Q24H [facility] Ceftriaxone Sodium 1 gm/ (Sodium Chloride) 50 mls @ 100 mls/hr IV Q24H [facility] Insulin Human Lispro (Insulin Lispro 100 Unit/Ml 3 Ml Vial) 0 unit SUBCUT QIDACHS [facility]; Protocol Last Admin: 07/12/22 08:46 Dose: Not Given Isosorbide Mononitrate (Isosorbide Mononitrate 30 Mg Tab.Er.24h) 30 mg PO DAILY [facility]; Protocol Last Admin: 07/12/22 07:43 Dose: 30 mg Omeprazole (Omeprazole 40 Mg Capsule.Dr) 40 mg PO DAILY PRN PRN Reason: Acid Reflux Ondansetron HCl (Ondansetron Hcl 4 Mg/2 Ml Vial) 4 mg IVPUSH Q8H PRN PRN Reason: Nausea and Vomiting Pharmacy Consult (Consult Rx Perform Med Rec) 1 each MISCELLANE ONCE PRN PRN Reason: Consult order Pregabalin (Pregabalin 25 Mg Capsule) 25 mg PO BID [facility] Last Admin: 07/11/22 20:25 Dose: 25 mg Sodium Chloride (0.9 % Sodium Chloride Flush 3 Ml Syringe) 3 ml IVFLUSH QSHIFT [facility] Last Admin: 07/12/22 09:18 Dose: Not Given Home Medications Medication Instructions Recorded Confirmed Last Taken Type acetaminophen 325 mg tablet 650 mg PO Q6H PRN Pain 09/10/21 07/11/22 Unknown History ferrous sulfate 325 mg (65 mg 1 tab PO TID 07/11/22 07/11/22 07/10/22 History iron) tablet (FeroSul) omeprazole 40 mg capsule,delayed 40 mg PO DAILY PRN Acid Reflux 07/11/22 07/11/22 Unknown History release Physical Exam Vital Signs: Vital Signs: Last Vital Signs Temp 96.9 F 07/12/22 08:00 Pulse 59 07/12/22 08:00 Resp 13 07/12/22 08:00 BP 155/61 H 07/12/22 08:00 Pulse Ox 97 07/12/22 04:05 O2 Del Method 07/12/22 04:05 O2 Flow Rate 2 07/12/22 04:05 Oxygen Flow Rate 1.5 07/11/22 12:55 BMI result Body Mass Index 33.8 Const: General: cooperative, alert, awake and in distress mild and respiratory Nutritional Appearance: obese Orientation/consciousness: patient oriented x3 HEENT: Head: Yes normocephalic and Yes atraumatic Neck: Neck: Yes trachea midline, Yes supple and Yes JVD Resp: Effort & Inspection: decreased respiratory effort Auscultation: rales bilateral 1/[address] up Cardio: Jugular venous distension: JVD Rate: regular rate Rhythm: regular rhythm Heart sounds: S1 normal heart sound present, S2 normal heart sound present, no click, no gallops and no murmurs GI: Inspection: Yes Abdominal wall edema and Yes distended Auscultation: normal bowel sounds Skin: General skin exam: no rashes or lesions noted Neuro: General: patient oriented x3 and no focal motor deficits Extrem: General: No clubbing, No cyanosis and Yes edema Objective Labs and Meds Result diagrams: 07/12/22 05:49 07/12/22 05:49 Lab results: Laboratory Results - last 24 hr 07/11/22 07/11/22 07/11/22 14:14 14:38 15:45 WBC 8.7 RBC 2.67 L Hgb 7.5 L Hct 24.1 L MCV 90.3 MCH 28.1 MCHC 31.1 RDW 16.4 H Plt Count 240 MPV 10.5 Immature Gran % (Auto) 1.2 H Neut % (Auto) 81.1 H Lymph % (Auto) 10.6 L Phillips % (Auto) 5.2 Eos % (Auto) 1.3 Baso % (Auto) 0.6 Lymph # (Auto) 0.9 L Phillips # (Auto) 0.5 Eos # (Auto) 0.1 Baso # (Auto) 0.1 Abs Immat Gran (auto) 0.10 H Absolute Neuts (auto) 7.1 Absolute Nucleated RBC 0.000 Nucleated RBC % (auto) 0.0 Sodium Potassium Chloride Carbon Dioxide Anion Gap BUN Creatinine Estim Creat Clear Calc Estimated GFR POC Glucose Random Glucose Estimat Average Glucose Hemoglobin A1c % Lactic Acid Calcium Magnesium Total Bilirubin Direct Bilirubin AST ALT Alkaline Phosphatase Troponin I High Sens B-Natriuretic Peptide Total Protein Albumin Urine Color Yellow Urine Appearance Turbid Urine pH 5.5 Ur Specific Galloway 1.015 Urine Protein 300 (3+) H Urine Glucose (UA) Negative Urine Ketones Negative Urine Blood Negative Urine Nitrite Negative Ur Leukocyte Esterase Large (3+) H Urine RBC >20 H Urine WBC >50 H Ur Squamous Epith Cells 11-20 Ur Transition Epith Cell None seen Ur Renal Epithelial Cell Present Urine Bacteria 4+ Hyaline Casts 3-5 Influenza Type A (PCR) NEGATIVE Influenza Type B (PCR) NEGATIVE RSV RNA Qual (PCR) NEGATIVE SARS-CoV-2 RNA (RT-PCR) NEGATIVE 07/11/22 07/11/22 07/11/22 15:45 15:45 15:45 WBC RBC Hgb Hct MCV MCH MCHC RDW Plt Count MPV Immature Gran % (Auto) Neut % (Auto) Lymph % (Auto) Phillips % (Auto) Eos % (Auto) Baso % (Auto) Lymph # (Auto) Phillips # (Auto) Eos # (Auto) Baso # (Auto) Abs Immat Gran (auto) Absolute Neuts (auto) Absolute Nucleated RBC Nucleated RBC % (auto) Sodium 144 Potassium 3.8 D Chloride 111 H Carbon Dioxide 23 Anion Gap 14 BUN 60 H Creatinine 2.69 H Estim Creat Clear Calc 20.0 Estimated GFR 17 POC Glucose Random Glucose 183 H Estimat Average Glucose Hemoglobin A1c % Lactic Acid Calcium 9.4 Magnesium 1.8 Total Bilirubin 0.4 Direct Bilirubin < 0.2 AST 9 ALT < 6 Alkaline Phosphatase 79 Troponin I High Sens 24.8 H D B-Natriuretic Peptide 492 H Total Protein 7.0 Albumin 3.6 Urine Color Urine Appearance Urine pH Ur Specific Galloway Urine Protein Urine Glucose (UA) Urine Ketones Urine Blood Urine Nitrite Ur Leukocyte Esterase Urine RBC Urine WBC Ur Squamous Epith Cells Ur Transition Epith Cell Ur Renal Epithelial Cell Urine Bacteria Hyaline Casts Influenza Type A (PCR) Influenza Type B (PCR) RSV RNA Qual (PCR) SARS-CoV-2 RNA (RT-PCR) 07/11/22 07/11/22 07/11/22 15:45 18:49 20:18 WBC RBC Hgb Hct MCV MCH MCHC RDW Plt Count MPV Immature Gran % (Auto) Neut % (Auto) Lymph % (Auto) Phillips % (Auto) Eos % (Auto) Baso % (Auto) Lymph # (Auto) Phillips # (Auto) Eos # (Auto) Baso # (Auto) Abs Immat Gran (auto) Absolute Neuts (auto) Absolute Nucleated RBC Nucleated RBC % (auto) Sodium Potassium Chloride Carbon Dioxide Anion Gap BUN Creatinine Estim Creat Clear Calc Estimated GFR POC Glucose 164 H Random Glucose Estimat Average Glucose Hemoglobin A1c % Lactic Acid 0.9 Calcium Magnesium Total Bilirubin Direct Bilirubin AST ALT Alkaline Phosphatase Troponin I High Sens 28.8 H B-Natriuretic Peptide Total Protein Albumin Urine Color Urine Appearance Urine pH Ur Specific Galloway Urine Protein Urine Glucose (UA) Urine Ketones Urine Blood Urine Nitrite Ur Leukocyte Esterase Urine RBC Urine WBC Ur Squamous Epith Cells Ur Transition Epith Cell Ur Renal Epithelial Cell Urine Bacteria Hyaline Casts Influenza Type A (PCR) Influenza Type B (PCR) RSV RNA Qual (PCR) SARS-CoV-2 RNA (RT-PCR) 07/12/22 07/12/22 07/12/22 05:49 05:49 05:49 WBC 6.1 RBC 2.64 L Hgb 7.2 L Hct 23.9 L MCV 90.5 MCH 27.3 MCHC 30.1 L RDW 16.3 H Plt Count 226 MPV 11.0 Immature Gran % (Auto) Neut % (Auto) Lymph % (Auto) Phillips % (Auto) Eos % (Auto) Baso % (Auto) Lymph # (Auto) Phillips # (Auto) Eos # (Auto) Baso # (Auto) Abs Immat Gran (auto) Absolute Neuts (auto) Absolute Nucleated RBC 0.000 Nucleated RBC % (auto) 0.0 Sodium 144 Potassium 3.9 Chloride 112 H Carbon Dioxide 22 Anion Gap 14 BUN 58 H Creatinine 2.69 H Estim Creat Clear Calc 20.0 Estimated GFR 17 POC Glucose Random Glucose 104 Estimat Average Glucose 120 Hemoglobin A1c % 5.8 Lactic Acid Calcium 8.9 Magnesium Total Bilirubin Direct Bilirubin AST ALT Alkaline Phosphatase Troponin I High Sens B-Natriuretic Peptide Total Protein Albumin Urine Color Urine Appearance Urine pH Ur Specific Galloway Urine Protein Urine Glucose (UA) Urine Ketones Urine Blood Urine Nitrite Ur Leukocyte Esterase Urine RBC Urine WBC Ur Squamous Epith Cells Ur Transition Epith Cell Ur Renal Epithelial Cell Urine Bacteria Hyaline Casts Influenza Type A (PCR) Influenza Type B (PCR) RSV RNA Qual (PCR) SARS-CoV-2 RNA (RT-PCR) 07/12/22 07:09 WBC RBC Hgb Hct MCV MCH MCHC RDW Plt Count MPV Immature Gran % (Auto) Neut % (Auto) Lymph % (Auto) Phillips % (Auto) Eos % (Auto) Baso % (Auto) Lymph # (Auto) Phillips # (Auto) Eos # (Auto) Baso # (Auto) Abs Immat Gran (auto) Absolute Neuts (auto) Absolute Nucleated RBC Nucleated RBC % (auto) Sodium Potassium Chloride Carbon Dioxide Anion Gap BUN Creatinine Estim Creat Clear Calc Estimated GFR POC Glucose 91 Random Glucose Estimat Average Glucose Hemoglobin A1c % Lactic Acid Calcium Magnesium Total Bilirubin Direct Bilirubin AST ALT Alkaline Phosphatase Troponin I High Sens B-Natriuretic Peptide Total Protein Albumin Urine Color Urine Appearance Urine pH Ur Specific Galloway Urine Protein Urine Glucose (UA) Urine Ketones Urine Blood Urine Nitrite Ur Leukocyte Esterase Urine RBC Urine WBC Ur Squamous Epith Cells Ur Transition Epith Cell Ur Renal Epithelial Cell Urine Bacteria Hyaline Casts Influenza Type A (PCR) Influenza Type B (PCR) RSV RNA Qual (PCR) SARS-CoV-2 RNA (RT-PCR) Imaging Radiologist's impression: Impressions Chest X-Ray 07/11/22 13:30 IMPRESSION: No dense consolidation. Bronchial wall thickening can be seen with a small airways process such as asthma or atypical/viral infection. Edema also a consideration. Assessment and Plan (1) Acute exacerbation of CHF (congestive heart failure): Status: Acute Elderly patient presents with worsening shortness of breath and diffuse fluid overload with lung findings consistent with decompensated congestive heart failure with also right heart failure finding with multiple comorbidities including advanced age, poor functionality, chronic kidney disease with severe anemia. I think she has had poor response to IV diuretic. Would consider starting on a Bumex drip at 0.5 mg an hour. Strict intake and output chart needs to be pursued. Overall prognosis is guarded. Continue aggressive blood pressure control. Consider transfusion of 1 unit to maintain hematocrit over 30 to reduce cardiac stress. Will also obtain an echocardiogram to assess LV systolic and diastolic function to evaluate for pulmonary hypertension as well as right-sided filling pressures. Her chest pain is fairly atypical and could be related to heart failure. Although musculoskeletal chest pain is also likely. Continue aggressive blood pressure control. She requires also case man agement input. Will continue to follow with you Procedures Date of Service Date of Service: 07/12/22
--- NOTE | 2022-07-12 12:04 | MHC.CM.PN ---
CM spoke with Patient's Daughter/HCP/Emilee @ [phone] and addressed IMM with her, original to be mailed certified letter to her and a copy to be placed on the chart. Patient lives in a house with Emilee in an Adult Foster Care setting and she is mostly bed bound. Home/resume [facility] services is the goal and CM has initiated and will follow for dc planning. Patient has received Moderna/Covid vax x4 and her PCP is Dr. Kay Castrejon/[place].
[2022-07-12 13:27] LABS: Glucose, Whole Blood 111 mg/dL (60-115)
--- NOTE | 2022-07-12 13:51 | HO.PM.IMPN ---
Subjective Subjective Date of Service: 07/12/22 Interval History: seen and examined this morning history obtained with the assistance of a interpreter deaf Follow-up for CHF Reports improvement in her breathing denies chest pain Review of Systems Review of Systems: Yes all other systems are reviewed and are negative Constitutional Constitutional: Denies chills and Denies fever(s) Cardiovascular Cardiovascular: Denies chest pain, Denies palpitations and Reports dyspnea Respiratory Respiratory: Denies cough and Reports dyspnea Gastrointestinal Gastrointestinal: Denies abdominal pain Endocrine Endocrine: Denies palpitations Physical Exam Vital Signs: Vital Signs: Last Vital Signs Temp 97.2 F 07/12/22 12:00 Pulse 80 07/12/22 12:00 Resp 19 07/12/22 12:00 BP 156/60 H 07/12/22 12:00 Pulse Ox 93 07/12/22 12:00 O2 Del Method 07/12/22 12:00 O2 Flow Rate 2 07/12/22 12:00 Oxygen Flow Rate 1.5 07/11/22 12:55 BMI result Body Mass Index 33.8 Const: General: cooperative, comfortable, alert and awake Nutritional Appearance: overweight Orientation/consciousness: patient oriented x3 Resp: Other: basilar crackles Effort & Inspection: normal respiratory effort and able to speak in complete sentences Cardio: Jugular venous distension: JVD Rate: regular rate Heart sounds: S1 normal heart sound present and S2 normal heart sound present GI: Inspection: No distended Palpation (GI): Soft to palpation Neuro: General: patient oriented x3 Extrem: Other: able to move all 4 extremities ; b/l leg edema Objective Data Active Medications Acetaminophen (Acetaminophen 325 Mg Tablet) 650 mg PO Q6H PRN PRN Reason: Pain, Mild (Pain Scale 1-3) Amlodipine Besylate (Amlodipine Besylate 10 Mg Tablet) 10 mg PO DAILY COUNTS INCLUDE 234 BEDS AT THE [facility]; Protocol Last Admin: 07/12/22 07:43 Dose: 10 mg Documented By: VADIM Atorvastatin Calcium (Atorvastatin Calcium 40 Mg Tablet) 40 mg PO DAILY COUNTS INCLUDE 234 BEDS AT THE [facility] Last Admin: 07/12/22 07:43 Dose: 40 mg Documented By: VADIM Dextrose (Dextrose 50 % 25 Gm/50 Ml Syringe) 25 gm IVPUSH Q15M PRN; Protocol PRN Reason: per Hypoglycemia Standing Ord. Docusate Sodium (Docusate Sodium 100 Mg Capsule) 100 mg PO DAILY PRN PRN Reason: Constipation Ferrous Sulfate (Ferrous Sulfate 324 Mg Tablet.) 324 mg PO TID COUNTS INCLUDE 234 BEDS AT THE [facility] Last Admin: 07/12/22 07:43 Dose: 324 mg Documented By: VADIM Glucose (Glucose Gel 15 Gm Gel..Gram.) 15 gm PO Q15M PRN; Protocol PRN Reason: per Hypoglycemia Standing Ord. Hydralazine HCl (Hydralazine Hcl 50 Mg Tablet) 100 mg PO TID COUNTS INCLUDE 234 BEDS AT THE [facility]; Protocol Last Admin: 07/12/22 07:43 Dose: 100 mg Documented By: VADIM Bumetanide 25 mg/ IV (Miscellaneous Supplies) 100 mls @ 2 mls/hr IVCONT .Q24H COUNTS INCLUDE 234 BEDS AT THE [facility] Ceftriaxone Sodium 1 gm/ (Sodium Chloride) 50 mls @ 100 mls/hr IV Q24H COUNTS INCLUDE 234 BEDS AT THE [facility] Insulin Human Lispro (Insulin Lispro 100 Unit/Ml 3 Ml Vial) 0 unit SUBCUT QIDACHS COUNTS INCLUDE 234 BEDS AT THE [facility]; Protocol Last Admin: 07/12/22 08:46 Dose: Not Given Documented By: VADIM Non-Admin Reason: No Insulin Coverage Isosorbide Mononitrate (Isosorbide Mononitrate 30 Mg Tab.Er.24h) 30 mg PO DAILY COUNTS INCLUDE 234 BEDS AT THE [facility]; Protocol Last Admin: 07/12/22 07:43 Dose: 30 mg Documented By: VADIM Omeprazole (Omeprazole 40 Mg Capsule.) 40 mg PO DAILY PRN PRN Reason: Acid Reflux Ondansetron HCl (Ondansetron Hcl 4 Mg/2 Ml Vial) 4 mg IVPUSH Q8H PRN PRN Reason: Nausea and Vomiting Pharmacy Consult (Consult Rx Perform Med Rec) 1 each MISCELLANE ONCE PRN PRN Reason: Consult order Pregabalin (Pregabalin 25 Mg Capsule) 25 mg PO BID COUNTS INCLUDE 234 BEDS AT THE [facility] Last Admin: 07/11/22 20:25 Dose: 25 mg Documented By: NAHED Sodium Chloride (0.9 % Sodium Chloride Flush 3 Ml Syringe) 3 ml IVFLUSH QSHIFT COUNTS INCLUDE 234 BEDS AT THE [facility] Last Admin: 07/12/22 09:18 Dose: Not Given Documented By: VADIM Non-Admin Reason: Med Not Available Labs CBC & Chem 7: 07/12/22 05:49 07/12/22 05:49 Labs: Laboratory Results - last 24 hr 07/11/22 07/11/22 07/11/22 14:14 14:38 15:45 MCV 90.3 MCH 28.1 MCHC 31.1 RDW 16.4 H Plt Count 240 MPV 10.5 Immature Gran % (Auto) 1.2 H Neut % (Auto) 81.1 H Lymph % (Auto) 10.6 L [place] % (Auto) 5.2 Eos % (Auto) 1.3 Baso % (Auto) 0.6 Lymph # (Auto) 0.9 L [place] # (Auto) 0.5 Eos # (Auto) 0.1 Baso # (Auto) 0.1 Abs Immat Gran (auto) 0.10 H Absolute Neuts (auto) 7.1 Absolute Nucleated RBC 0.000 Nucleated RBC % (auto) 0.0 Anion Gap Estim Creat Clear Calc Estimated GFR POC Glucose Random Glucose Estimat Average Glucose Hemoglobin A1c % Lactic Acid Calcium Magnesium Total Bilirubin Direct Bilirubin AST ALT Alkaline Phosphatase Troponin I High Sens B-Natriuretic Peptide Total Protein Albumin Urine Color Yellow Urine Appearance Turbid Urine pH 5.5 Ur Specific [place] 1.015 Urine Protein 300 (3+) H Urine Glucose (UA) Negative Urine Ketones Negative Urine Blood Negative Urine Nitrite Negative Ur Leukocyte Esterase Large (3+) H Urine RBC >20 H Urine WBC >50 H Ur Squamous Epith Cells 11-20 Ur Transition Epith Cell None seen Ur Renal Epithelial Cell Present Urine Bacteria 4+ Hyaline Casts 3-5 Influenza Type A (PCR) NEGATIVE Influenza Type B (PCR) NEGATIVE RSV RNA Qual (PCR) NEGATIVE SARS-CoV-2 RNA (RT-PCR) NEGATIVE 07/11/22 07/11/22 07/11/22 15:45 15:45 15:45 MCV MCH MCHC RDW Plt Count MPV Immature Gran % (Auto) Neut % (Auto) Lymph % (Auto) [place] % (Auto) Eos % (Auto) Baso % (Auto) Lymph # (Auto) [place] # (Auto) Eos # (Auto) Baso # (Auto) Abs Immat Gran (auto) Absolute Neuts (auto) Absolute Nucleated RBC Nucleated RBC % (auto) Anion Gap 14 Estim Creat Clear Calc 20.0 Estimated GFR 17 POC Glucose Random Glucose 183 H Estimat Average Glucose Hemoglobin A1c % Lactic Acid Calcium 9.4 Magnesium 1.8 Total Bilirubin 0.4 Direct Bilirubin < 0.2 AST 9 ALT < 6 Alkaline Phosphatase 79 Troponin I High Sens 24.8 H D B-Natriuretic Peptide 492 H Total Protein 7.0 Albumin 3.6 Urine Color Urine Appearance Urine pH Ur Specific [place] Urine Protein Urine Glucose (UA) Urine Ketones Urine Blood Urine Nitrite Ur Leukocyte Esterase Urine RBC Urine WBC Ur Squamous Epith Cells Ur Transition Epith Cell Ur Renal Epithelial Cell Urine Bacteria Hyaline Casts Influenza Type A (PCR) Influenza Type B (PCR) RSV RNA Qual (PCR) SARS-CoV-2 RNA (RT-PCR) 07/11/22 07/11/22 07/11/22 15:45 18:49 20:18 MCV MCH MCHC RDW Plt Count MPV Immature Gran % (Auto) Neut % (Auto) Lymph % (Auto) [place] % (Auto) Eos % (Auto) Baso % (Auto) Lymph # (Auto) [place] # (Auto) Eos # (Auto) Baso # (Auto) Abs Immat Gran (auto) Absolute Neuts (auto) Absolute Nucleated RBC Nucleated RBC % (auto) Anion Gap Estim Creat Clear Calc Estimated GFR POC Glucose 164 H Random Glucose Estimat Average Glucose Hemoglobin A1c % Lactic Acid 0.9 Calcium Magnesium Total Bilirubin Direct Bilirubin AST ALT Alkaline Phosphatase Troponin I High Sens 28.8 H B-Natriuretic Peptide Total Protein Albumin Urine Color Urine Appearance Urine pH Ur Specific [place] Urine Protein Urine Glucose (UA) Urine Ketones Urine Blood Urine Nitrite Ur Leukocyte Esterase Urine RBC Urine WBC Ur Squamous Epith Cells Ur Transition Epith Cell Ur Renal Epithelial Cell Urine Bacteria Hyaline Casts Influenza Type A (PCR) Influenza Type B (PCR) RSV RNA Qual (PCR) SARS-CoV-2 RNA (RT-PCR) 07/12/22 07/12/22 07/12/22 05:49 05:49 05:49 MCV 90.5 MCH 27.3 MCHC 30.1 L RDW 16.3 H Plt Count 226 MPV 11.0 Immature Gran % (Auto) Neut % (Auto) Lymph % (Auto) [place] % (Auto) Eos % (Auto) Baso % (Auto) Lymph # (Auto) [place] # (Auto) Eos # (Auto) Baso # (Auto) Abs Immat Gran (auto) Absolute Neuts (auto) Absolute Nucleated RBC 0.000 Nucleated RBC % (auto) 0.0 Anion Gap 14 Estim Creat Clear Calc 20.0 Estimated GFR 17 POC Glucose Random Glucose 104 Estimat Average Glucose 120 Hemoglobin A1c % 5.8 Lactic Acid Calcium 8.9 Magnesium Total Bilirubin Direct Bilirubin AST ALT Alkaline Phosphatase Troponin I High Sens B-Natriuretic Peptide Total Protein Albumin Urine Color Urine Appearance Urine pH Ur Specific [place] Urine Protein Urine Glucose (UA) Urine Ketones Urine Blood Urine Nitrite Ur Leukocyte Esterase Urine RBC Urine WBC Ur Squamous Epith Cells Ur Transition Epith Cell Ur Renal Epithelial Cell Urine Bacteria Hyaline Casts Influenza Type A (PCR) Influenza Type B (PCR) RSV RNA Qual (PCR) SARS-CoV-2 RNA (RT-PCR) 07/12/22 07/12/22 07:09 13:13 MCV MCH MCHC RDW Plt Count MPV Immature Gran % (Auto) Neut % (Auto) Lymph % (Auto) [place] % (Auto) Eos % (Auto) Baso % (Auto) Lymph # (Auto) [place] # (Auto) Eos # (Auto) Baso # (Auto) Abs Immat Gran (auto) Absolute Neuts (auto) Absolute Nucleated RBC Nucleated RBC % (auto) Anion Gap Estim Creat Clear Calc Estimated GFR POC Glucose 91 111 Random Glucose Estimat Average Glucose Hemoglobin A1c % Lactic Acid Calcium Magnesium Total Bilirubin Direct Bilirubin AST ALT Alkaline Phosphatase Troponin I High Sens B-Natriuretic Peptide Total Protein Albumin Urine Color Urine Appearance Urine pH Ur Specific [place] Urine Protein Urine Glucose (UA) Urine Ketones Urine Blood Urine Nitrite Ur Leukocyte Esterase Urine RBC Urine WBC Ur Squamous Epith Cells Ur Transition Epith Cell Ur Renal Epithelial Cell Urine Bacteria Hyaline Casts Influenza Type A (PCR) Influenza Type B (PCR) RSV RNA Qual (PCR) SARS-CoV-2 RNA (RT-PCR) Microbiology Microbiology Results: Microbiology 07/11/22 Unknown Urine Culture - Final Urine clean catch - Urine allen top Assessment and Plan (1) Acute exacerbation of CHF (congestive heart failure): Status: Acute Plan This is an 82 year old [place]an-speaking female with history of CKD 4, hypertension, hyperlipidemia, diabetes, stroke, HFpEF who presents to the emergency department with shortness of breath found to have fluid overload Acute respiratory failure with hypoxia r/t CHF treat chf, wean oxygen as tolerated Acute on chronic HFpEF follow Is&Os and daily weights low Na+ diet mode jolly was previously on bumex, but no longer takes? unclear still volume overloaded, will start bumex drip cardiology following UTI afebrile, no leukocytosis but reporting dysuria -continue IV ceftriaxone -follow urine culture CKD4 creatinine at baseline Chronic normocytic anemia likely anemia of chronic disease no evidence of bleeding will transfuse 1 unit RBC per cardiology rec given acute chf follow CBC DM SSI, POCs, ADA diet ?not on baseline meds hba1c 5.8, likely diet controlled HLD continue statin HTN continue norvasc, hydralazine, imdur dvt ppx - mechanical devices code status - full code HCP - daughter Emilee attending - dr. petty requires ongoing inpatient hospitalization for management of acute CHF requiring IV diuresis and close monitoring to prevent decompensation Quality Stroke Does the patient have a stroke diagnosis?: No VTE Prior VTE?: No VTE Risk Level:: Medical - moderate - high VTE Device Contraindication: N/A - Device Ordered VTE Drug Contraindication: Treatment Not Indicated
[2022-07-12] MEDS: Bumetanide 25 MG in Container,Empty 0 ML IVCONT (14:43)
[2022-07-12] MEDS: Pregabalin 25 MG CAPSULE PO ×2 (15:30→22:18)
[2022-07-12] MEDS: cefTRIAXone sodium 1 GM in 0.9 % Sodium Chloride 50 ML IV (16:48)
[2022-07-12 18:17] LABS: Glucose, Whole Blood 129 mg/dL (60-115)
[2022-07-12 20:02] LABS: Glucose, Whole Blood 120 mg/dL (60-115)
[2022-07-12] MEDS: 0.9 % Sodium Chloride Flush 3 ML SYRINGE IVFLUSH (22:23)
[2022-07-13] VITALS (12 sets, daily range): BP systolic 146–173; BP diastolic 62–78; PULSE 72–84; RESP 16–20; TEMP 36–37.2; O2SAT 92–99
[2022-07-13 07:55] LABS: Glucose, Whole Blood 94 mg/dL (60-115)
[2022-07-13 08:06] LABS: Hematocrit 26.1 % (37.0-47.0); Hemoglobin 8.3 g/dl (12.0-16.0); Mean Corpuscular HGB Conc 31.8 g/dl (31.0-35.0); Mean Corpuscular Hemoglobin 28.5 pg (27.0-33.0); Mean Corpuscular Volume 89.7 fL (80.0-98.0); Mean Platelet Volume 10.9 fL (9.4-12.3); Platelet Count 231 X10*3/uL (160-400); Red Blood Count 2.91 X10*6/uL (4.20-5.50); Red Cell Distribution Width 15.8 % (11.0-16.0)
[2022-07-13 08:19] LABS: Anion Gap 14 (12-20); Blood Urea Nitrogen 57 mg/dL (9-16); Calcium 8.9 mg/dL (8.4-10.2); Carbon Dioxide 23 mmol/L (22-29); Chloride 110 mmol/L (96-108); Creatinine Clr Calc Pharmacy 20.8; Estimated Glomerular Filt Rate 18; Glucose Random 96 mg/dL (60-115); Potassium 3.8 mmol/L (3.3-5.1); Sodium 143 mmol/L (135-145)
[2022-07-13] MEDS: amLODIPine Besylate 10 MG TABLET PO (08:51)
[2022-07-13] MEDS: Atorvastatin Calcium 40 MG TABLET PO (08:51)
[2022-07-13] MEDS: Isosorbide Mononitrate 30 MG TAB.ER.24H PO (08:51)
[2022-07-13] MEDS: Ferrous Sulfate 324 MG TABLET.DR PO ×3 (08:51→21:29)
[2022-07-13] MEDS: hydrALAZINE HCl 50 MG TABLET 100 MG PO ×3 (08:51→21:29)
[2022-07-13] MEDS: 0.9 % Sodium Chloride Flush 3 ML SYRINGE IVFLUSH ×2 (08:51→18:10)
[2022-07-13] MEDS: Pregabalin 25 MG CAPSULE PO ×2 (08:51→21:29)
[2022-07-13 11:33] LABS: Glucose, Whole Blood 139 mg/dL (60-115)
--- NOTE | 2022-07-13 12:33 | PM.PNCARD ---
Subjective Subjective Date of Service: 07/13/22 Principal diagnosis: CHF Interval history: Patient on Bumex drip, negative balance listed as -770 mL. She says she is breathing better. No chest pain. Continues to have leg edema. No arrhythmias. Currently in taking fast food, appears to be high salt intake. Blood pressure is stable. Received 1 unit of packed RBC. Hematocrit has improved marginally Review of Systems Review of Systems Yes all other systems are reviewed and are negative Physical Exam Vital Signs: Last Vital Signs Temp 99.0 F 07/13/22 11:00 Pulse 80 07/13/22 11:00 Resp 20 07/13/22 11:00 BP 146/68 H 07/13/22 11:00 Pulse Ox 92 07/13/22 11:00 O2 Del Method 07/13/22 11:00 O2 Flow Rate 2 07/13/22 00:00 Oxygen Flow Rate 1.5 07/11/22 12:55 BMI result Body Mass Index 33.8 Const General: cooperative, comfortable, no acute distress, alert and awake Nutritional Appearance: obese Orientation/consciousness: patient oriented x3 Neck Neck: Yes trachea midline, Yes supple and Yes no JVD Resp Effort & Inspection: decreased respiratory effort Auscultation: crackles (Improved bilaterally) Cardio Jugular venous distension: no JVD Palpation: normal PMI Rate: regular rate Rhythm: regular rhythm Heart sounds: S1 normal heart sound present, S2 normal heart sound present, no click, no gallops and no murmurs GI Auscultation: normal bowel sounds Skin General skin exam: no rashes or lesions noted Neuro General: patient oriented x3 and no focal motor deficits Extrem General: No clubbing, No cyanosis and Yes edema Objective Labs and Meds Result diagrams: 07/13/22 06:58 07/13/22 06:58 Lab results: Laboratory Results - last 24 hr 07/12/22 07/12/22 07/12/22 13:13 14:39 18:12 WBC RBC Hgb Hct MCV MCH MCHC RDW Plt Count MPV Absolute Nucleated RBC Nucleated RBC % (auto) Sodium Potassium Chloride Carbon Dioxide Anion Gap BUN Creatinine Estim Creat Clear Calc Estimated GFR POC Glucose 111 129 H Random Glucose Calcium Blood Type A Positive Antibody Screen NEGATIVE Crossmatch See Detail 07/12/22 07/13/22 07/13/22 19:58 06:58 06:58 WBC 7.0 RBC 2.91 L Hgb 8.3 L Hct 26.1 L MCV 89.7 MCH 28.5 MCHC 31.8 RDW 15.8 Plt Count 231 MPV 10.9 Absolute Nucleated RBC 0.000 Nucleated RBC % (auto) 0.0 Sodium 143 Potassium 3.8 Chloride 110 H Carbon Dioxide 23 Anion Gap 14 BUN 57 H Creatinine 2.58 H Estim Creat Clear Calc 20.8 Estimated GFR 18 POC Glucose 120 H Random Glucose 96 Calcium 8.9 Blood Type Antibody Screen Crossmatch 07/13/22 07/13/22 07:31 11:05 WBC RBC Hgb Hct MCV MCH MCHC RDW Plt Count MPV Absolute Nucleated RBC Nucleated RBC % (auto) Sodium Potassium Chloride Carbon Dioxide Anion Gap BUN Creatinine Estim Creat Clear Calc Estimated GFR POC Glucose 94 139 H Random Glucose Calcium Blood Type Antibody Screen Crossmatch Progress Note: A&P Assessment and plan (1) Acute exacerbation of CHF (congestive heart failure): Status: Acute Assessment and Plan: Acute heart failure decompensation with volume overload. Clinically improving. Continue IV Bumex drip for 1 more day. Strict intake and output chart needs to be pursued. Continue lab work tomorrow including BNP to see if it is down trending. Continue aggressive blood pressure control. Can further uptitrate isosorbide therapy to 60 mg daily. Continue hydralazine therapy. Discussed about heart failure management with avoidance of high salt diet as she was in taking. Consider 1 more unit of transfusion to maintain hematocrit over 30. Will sign of the case at this point time. Thank you for allowing me to partake in her care Time Spent With Patient Time: Total time spent is greater than 50% in coordination of care (as documented) at patient's floor/unit and/or counseling patient: Progress Note: Quality Stroke Does the patient have a stroke diagnosis?: No Procedures Date of Service Date of Service: 07/13/22
--- NOTE | 2022-07-13 13:45 | P.PNIM_ITS ---
Subjective Subjective Date of Service: 07/13/22 Interval History: seen and examined this morning. history obtained with the assistance of a educational interpreter Follow-up for CHF Patient reports improvement in breathing denies chest pain Review of Systems Review of Systems: Yes all other systems are reviewed and are negative Constitutional Constitutional: Denies chills and Denies fever(s) Cardiovascular Cardiovascular: Denies chest pain, Denies palpitations and Denies dyspnea Respiratory Respiratory: Denies cough and Denies dyspnea Gastrointestinal Gastrointestinal: Denies abdominal pain Endocrine Endocrine: Denies palpitations Physical Exam Vital Signs: Vital Signs: Last Vital Signs Temp 99.0 F 07/13/22 11:00 Pulse 80 07/13/22 11:00 Resp 20 07/13/22 11:00 BP 146/68 H 07/13/22 11:00 Pulse Ox 92 07/13/22 11:00 O2 Del Method 07/13/22 11:00 O2 Flow Rate 2 07/13/22 00:00 Oxygen Flow Rate 1.5 07/11/22 12:55 BMI result Body Mass Index 33.8 Const: General: cooperative, comfortable, alert and awake Nutritional Rekha earance: overweight Orientation/consciousness: patient oriented x3 Resp: Effort & Inspection: normal respiratory effort and able to speak in complete sentences Auscultation: clear to auscultation bilaterally Cardio: Jugular venous distension: JVD Rate: regular rate Heart sounds: S1 normal heart sound present and S2 normal heart sound present GI: Inspection: No distended Palpation (GI): Soft to palpation Neuro: General: patient oriented x3 Extrem: Other: able to move all 4 extremities ; b/l leg edema Objective Data Active Medications Acetaminophen (Acetaminophen 325 Mg Tablet) 650 mg PO Q6H PRN PRN Reason: Pain, Mild (Pain Scale 1-3) Amlodipine Besylate (Amlodipine Besylate 10 Mg Tablet) 10 mg PO DAILY [facility]; Protocol Last Admin: 07/13/22 08:51 Dose: 10 mg Documented By: GARO Atorvastatin Calcium (Atorvastatin Calcium 40 Mg Tablet) 40 mg PO DAILY [facility] Last Admin: 07/13/22 08:51 Dose: 40 mg Documented By: GARO Dextrose (Dextrose 50 % 25 Gm/50 Ml Syringe) 25 gm IVPUSH Q15M PRN; Protocol PRN Reason: per Hypoglycemia Standing Ord. Docusate Sodium (Docusate Sodium 100 Mg Capsule) 100 mg PO DAILY PRN PRN Reason: Constipation Ferrous Sulfate (Ferrous Sulfate 324 Mg Tablet.) 324 mg PO TID [facility] Last Admin: 07/13/22 08:51 Dose: 324 mg Documented By: GARO Glucose (Glucose Gel 15 Gm Gel..Gram.) 15 gm PO Q15M PRN; Protocol PRN Reason: per Hypoglycemia Standing Ord. Hydralazine HCl (Hydralazine Hcl 50 Mg Tablet) 100 mg PO TID [facility]; Protocol Last Admin: 07/13/22 08:51 Dose: 100 mg Documented By: GARO Bumetanide 25 mg/ IV (Miscellaneous Supplies) 100 mls @ 2 mls/hr IVCONT .Q24H [facility] Last Admin: 07/12/22 14:43 Dose: 0.5 mg/hr, 2 mls/hr Documented By: VADIM Ceftriaxone Sodium 1 gm/ (Sodium Chloride) 50 mls @ 100 mls/hr IV Q24H [facility] Last Infusion: 07/12/22 18:19 Dose: 0 mls/hr Documented By: FRANCISCO Insulin Human Lispro (Insulin Lispro 100 Unit/Ml 3 Ml Vial) 0 unit SUBCUT QIDACHS [facility]; Protocol Last Admin: 07/13/22 11:49 Dose: Not Given Documented By: GARO Non-Admin Reason: No Insulin Coverage Isosorbide Mononitrate (Isosorbide Mononitrate 30 Mg Tab.Er.24h) 30 mg PO DAILY [facility]; Protocol Last Admin: 07/13/22 08:51 Dose: 30 mg Documented By: GARO Omeprazole (Omeprazole 40 Mg Capsule.) 40 mg PO DAILY PRN PRN Reason: Acid Reflux Ondansetron HCl (Ondansetron Hcl 4 Mg/2 Ml Vial) 4 mg IVPUSH Q8H PRN PRN Reason: Nausea and Vomiting Pharmacy Consult (Consult Rx Perform Med Rec) 1 each MISCELLANE ONCE PRN PRN Reason: Consult order Pregabalin (Pregabalin 25 Mg Capsule) 25 mg PO BID [facility] Last Admin: 07/13/22 08:51 Dose: 25 mg Documented By: GARO Sodium Chloride (0.9 % Sodium Chloride Flush 3 Ml Syringe) 3 ml IVFLUSH QSHIFT [facility] Last Admin: 07/13/22 08:51 Dose: 3 ml Documented By: GARO Labs CBC & Chem 7: 07/13/22 06:58 07/13/22 06:58 Labs: Laboratory Results - last 24 hr 07/12/22 07/12/22 07/12/22 14:39 18:12 19:58 MCV MCH MCHC RDW Plt Count MPV Absolute Nucleated RBC Nucleated RBC % (auto) Anion Gap Estim Creat Clear Calc Estimated GFR POC Glucose 129 H 120 H Random Glucose Calcium Blood Type A Positive Antibody Screen NEGATIVE Crossmatch See Detail 07/13/22 07/13/22 07/13/22 06:58 06:58 07:31 MCV 89.7 MCH 28.5 MCHC 31.8 RDW 15.8 Plt Count 231 MPV 10.9 Absolute Nucleated RBC 0.000 Nucleated RBC % (auto) 0.0 Anion Gap 14 Estim Creat Clear Calc 20.8 Estimated GFR 18 POC Glucose 94 Random Glucose 96 Calcium 8.9 Blood Type Antibody Screen Crossmatch 07/13/22 11:05 MCV MCH MCHC RDW Plt Count MPV Absolute Nucleated RBC Nucleated RBC % (auto) Anion Gap Estim Creat Clear Calc Estimated GFR POC Glucose 139 H Random Glucose Calcium Blood Type Antibody Screen Crossmatch Microbiology Microbiology Results: Microbiology 07/11/22 15:47 Blood Culture - Preliminary Blood - Venous No growth after 24 hours. 07/11/22 15:44 Blood Culture - Preliminary Blood - Venous No growth after 24 hours. 07/11/22 Unknown Urine Culture - Final Urine clean catch - Urine allen top Assessment and Plan (1) Acute exacerbation of CHF (congestive heart failure): Status: Acute Plan This is an 82 year old Telugu-speaking female with history of CKD 4, hypertension, hyperlipidemia, diabetes, stroke, HFpEF who presents to the emergency department with shortness of breath found to have fluid overload Acute respiratory failure with hypoxia r/t CHF currently back on room air Acute on chronic HFpEF follow Is&Os and daily weights low Na+ diet trops flat still volume overloaded, continue bumex drip cardiology following UTI urine culture growing >100,000 mixed bacterial tatiana reporting dysuria -continue IV ceftriaxone CKD4 creatinine at baseline Chronic normocytic anemia likely anemia of chronic disease no evidence of bleeding H/H improving will transfuse additional unit RBC per cardiology rec given acute chf follow CBC ? h/o DM not on baseline meds hba1c 5.8 HLD continue statin HTN continue norvasc, hydralazine, imdur dvt ppx - mechanical devices code status - full code HCP - daughter Emilee attending - dr. petty requires ongoing inpatient hospitalization for management of acute CHF requiring IV diuresis and close monitoring to prevent decompensation Quality Stroke Does the patient have a stroke diagnosis?: No VTE Prior VTE?: No VTE Risk Level:: Medical - moderate - high VTE Device Contraindication: N/A - Device Ordered VTE Drug Contraindication: Treatment Not Indicated
[2022-07-13] MEDS: Acetaminophen 325 MG TABLET 650 MG PO (14:01)
[2022-07-13] MEDS: Bumetanide 25 MG in Container,Empty 0 ML IVCONT (14:01)
[2022-07-13 16:33] LABS: Glucose, Whole Blood 134 mg/dL (60-115)
[2022-07-13] MEDS: cefTRIAXone sodium 1 GM in 0.9 % Sodium Chloride 50 ML IV (18:00)
[2022-07-13 20:09] LABS: Glucose, Whole Blood 132 mg/dL (60-115)
[2022-07-14] VITALS (7 sets, daily range): BP systolic 138–191; BP diastolic 58–86; PULSE 67–79; RESP 16–20; TEMP 36.1–37.2; O2SAT 91–99
[2022-07-14 07:31] LABS: Glucose, Whole Blood 99 mg/dL (60-115)
[2022-07-14 07:43] LABS: Hematocrit 29.4 % (37.0-47.0); Hemoglobin 9.4 g/dl (12.0-16.0); Mean Corpuscular Hemoglobin 28.7 pg (27.0-33.0); Mean Corpuscular Volume 89.6 fL (80.0-98.0); Mean Platelet Volume 10.8 fL (9.4-12.3); Platelet Count 228 X10*3/uL (160-400); Red Blood Count 3.28 X10*6/uL (4.20-5.50); Red Cell Distribution Width 15.4 % (11.0-16.0); White Blood Count 7.4 X10*3/uL (4.8-10.8)
[2022-07-14 07:57] LABS: Anion Gap 17 (12-20); Blood Urea Nitrogen 59 mg/dL (9-16); Calcium 8.6 mg/dL (8.4-10.2); Carbon Dioxide 21 mmol/L (22-29); Chloride 106 mmol/L (96-108); Creatinine Clr Calc Pharmacy 21.5; Estimated Glomerular Filt Rate 18; Glucose Random 103 mg/dL (60-115); Potassium 3.6 mmol/L (3.3-5.1); Sodium 140 mmol/L (135-145)
[2022-07-14 08:10] LABS: B Type Natriuretic Peptide 478 pg/mL (<100)
[2022-07-14] MEDS: Pregabalin 25 MG CAPSULE PO ×2 (11:04→20:50)
[2022-07-14] MEDS: amLODIPine Besylate 10 MG TABLET PO (11:04)
[2022-07-14] MEDS: Atorvastatin Calcium 40 MG TABLET PO (11:04)
[2022-07-14] MEDS: Ferrous Sulfate 324 MG TABLET.DR PO ×3 (11:05→20:50)
[2022-07-14] MEDS: 0.9 % Sodium Chloride Flush 3 ML SYRINGE IVFLUSH ×3 (11:05→20:50)
[2022-07-14] MEDS: Isosorbide Mononitrate 60 MG TAB.ER.24H PO (11:05)
[2022-07-14] MEDS: hydrALAZINE HCl 50 MG TABLET 100 MG PO ×3 (11:05→20:50)
[2022-07-14 11:48] LABS: Glucose, Whole Blood 133 mg/dL (60-115)
--- NOTE | 2022-07-14 11:54 | HO.PM.IMPN ---
Subjective Subjective Date of Service: 07/14/22 <MASSIEL Drummond - Last Filed: 07/14/22 12:05> 07/17/22 <Jozef Carlton MD - Last Filed: 07/17/22 10:25> Interval History: seen and examined this morning follow up for chf with ongoing fluid overload, denies sob, denies chest pain <MASSIEL Drummond - Last Filed: 07/14/22 12:05> Review of Systems Review of Systems: Yes all other systems are reviewed and are negative <MASSIEL Drummond - Last Filed: 07/14/22 12:05> Constitutional Constitutional: Denies chills and Denies fever(s) <MASSIEL Drummond - Last Filed: 07/14/22 12:05> Cardiovascular Cardiovascular: Denies chest pain, Denies palpitations and Denies dyspnea <MASSIEL Drummond - Last Filed: 07/14/22 12:05> Respiratory Respiratory: Denies cough and Denies dyspnea <MASSIEL Drummond - Last Filed: 07/14/22 12:05> Gastrointestinal Gastrointestinal: Denies abdominal pain, Denies nausea and Denies vomiting <MASSIEL Drummond - Last Filed: 07/14/22 12:05> Endocrine Endocrine: Denies palpitations <MASSIEL Drummond - Last Filed: 07/14/22 12:05> Physical Exam Vital Signs: Vital Signs: Last Vital Signs Temp 97.6 F 07/14/22 11:09 Pulse 78 07/14/22 11:09 Resp 18 07/14/22 11:09 BP 191/86 H 07/14/22 11:09 Pulse Ox 94 07/14/22 11:09 O2 Del Method 07/14/22 11:09 O2 Flow Rate 3 07/14/22 11:09 Oxygen Flow Rate 1.5 07/11/22 12:55 BMI result Body Mass Index 33.8 <MASSIEL Drummond - Last Filed: 07/14/22 12:05> Const: General: cooperative, comfortable, alert and awake <MASSIEL Drummond - Last Filed: 07/14/22 12:05> Nutritional Appearance: overweight <MASSIEL Drummond - Last Filed: 07/14/22 12:05> Orientation/consciousness: patient oriented x3 <MASSIEL Drummond - Last Filed: 07/14/22 12:05> Resp: Other: basilar crackles <MASSIEL Drummond - Last Filed: 07/14/22 12:05> Effort & Inspection: normal respiratory effort and able to speak in complete sentences <MASSIEL Drummond - Last Filed: 07/14/22 12:05> Cardio: Jugular venous distension: JVD <MASSIEL Drummond - Last Filed: 07/14/22 12:05> Rate: regular rate <MASSIEL Drummond - Last Filed: 07/14/22 12:05> Heart sounds: S1 normal heart sound present and S2 normal heart sound present <MASSIEL Drummond - Last Filed: 07/14/22 12:05> GI: Inspection: No distended <MASSIEL Drummond - Last Filed: 07/14/22 12:05> Palpation (GI): Soft to palpation <MASSIEL Drummond - Last Filed: 07/14/22 12:05> Neuro: General: patient oriented x3 <MASSIEL Drummond - Last Filed: 07/14/22 12:05> Extrem: Other: able to move all 4 extremities ; b/l leg edema <MASSIEL Drummond - Last Filed: 07/14/22 12:05> Objective Data Active Medications Acetaminophen (Acetaminophen 325 Mg Tablet) 650 mg PO Q6H PRN PRN Reason: Pain, Mild (Pain Scale 1-3) Last Admin: 07/13/22 14:01 Dose: 650 mg Documented By: GARO Amlodipine Besylate (Amlodipine Besylate 10 Mg Tablet) 10 mg PO DAILY [facility]; Protocol Last Admin: 07/14/22 11:04 Dose: 10 mg Documented By: GARO Atorvastatin Calcium (Atorvastatin Calcium 40 Mg Tablet) 40 mg PO DAILY [facility] Last Admin: 07/14/22 11:04 Dose: 40 mg Documented By: GARO Dextrose (Dextrose 50 % 25 Gm/50 Ml Syringe) 25 gm IVPUSH Q15M PRN; Protocol PRN Reason: per Hypoglycemia Standing Ord. Docusate Sodium (Docusate Sodium 100 Mg Capsule) 100 mg PO DAILY PRN PRN Reason: Constipation Ferrous Sulfate (Ferrous Sulfate 324 Mg Tablet.) 324 mg PO TID [facility] Last Admin: 07/14/22 11:05 Dose: 324 mg Documented By: GARO Glucose (Glucose Gel 15 Gm Gel..Gram.) 15 gm PO Q15M PRN; Protocol PRN Reason: per Hypoglycemia Standing Ord. Hydralazine HCl (Hydralazine Hcl 50 Mg Tablet) 100 mg PO TID [facility]; Protocol Last Admin: 07/14/22 11:05 Dose: 100 mg Documented By: GARO Bumetanide 25 mg/ IV (Miscellaneous Supplies) 100 mls @ 2 mls/hr IVCONT .Q24H [facility] Last Admin: 07/13/22 14:01 Dose: 0.5 mg/hr, 2 mls/hr Documented By: GARO Ceftriaxone Sodium 1 gm/ (Sodium Chloride) 50 mls @ 100 mls/hr IV Q24H [facility] Last Infusion: 07/13/22 19:37 Dose: 0 mls/hr Documented By: GARO Insulin Human Lispro (Insulin Lispro 100 Unit/Ml 3 Ml Vial) 0 unit SUBCUT QIDACHS [facility]; Protocol Last Admin: 07/14/22 09:26 Dose: Not Given Documented By: GARO Non-Admin Reason: No Insulin Coverage Isosorbide Mononitrate (Isosorbide Mononitrate 60 Mg Tab.Er.24h) 60 mg PO DAILY [facility]; Protocol Last Admin: 07/14/22 11:05 Dose: 60 mg Documented By: GARO Omeprazole (Omeprazole 40 Mg Capsule.) 40 mg PO DAILY PRN PRN Reason: Acid Reflux Ondansetron HCl (Ondansetron Hcl 4 Mg/2 Ml Vial) 4 mg IVPUSH Q8H PRN PRN Reason: Nausea and Vomiting Pharmacy Consult (Consult Rx Perform Med Rec) 1 each MISCELLANE ONCE PRN PRN Reason: Consult order Pregabalin (Pregabalin 25 Mg Capsule) 25 mg PO BID [facility] Last Admin: 07/14/22 11:04 Dose: 25 mg Documented By: GARO Sodium Chloride (0.9 % Sodium Chloride Flush 3 Ml Syringe) 3 ml IVFLUSH QSHIFT [facility] Last Admin: 07/14/22 11:05 Dose: 3 ml Documented By: GARO <MASSIEL Drummond - Last Filed: 07/14/22 12:05> Labs CBC & Chem 7: : 07/16/22 09:01 07/16/22 09:01 <MASSIEL Drummond - Last Filed: 07/14/22 12:05> Labs: Laboratory Results - last 24 hr 07/12/22 07/13/22 07/13/22 14:39 16:25 19:57 MCV MCH MCHC RDW Plt Count MPV Absolute Nucleated RBC Nucleated RBC % (auto) Anion Gap Estim Creat Clear Calc Estimated GFR POC Glucose 134 H 132 H Random Glucose Calcium B-Natriuretic Peptide Blood Type A Positive Antibody Screen NEGATIVE Crossmatch See Detail 07/14/22 07/14/22 07/14/22 07:02 07:02 07:02 MCV 89.6 MCH 28.7 MCHC 32.0 RDW 15.4 Plt Count 228 MPV 10.8 Absolute Nucleated RBC 0.000 Nucleated RBC % (auto) 0.0 Anion Gap 17 Estim Creat Clear Calc 21.5 Estimated GFR 18 POC Glucose Random Glucose 103 Calcium 8.6 B-Natriuretic Peptide 478 H Blood Type Antibody Screen Crossmatch 07/14/22 07/14/22 07:02 11:07 MCV MCH MCHC RDW Plt Count MPV Absolute Nucleated RBC Nucleated RBC % (auto) Anion Gap Estim Creat Clear Calc Estimated GFR POC Glucose 99 133 H Random Glucose Calcium B-Natriuretic Peptide Blood Type Antibody Screen Crossmatch <MASSIEL Drummond - Last Filed: 07/14/22 12:05> Microbiology Microbiology Results: Microbiology 07/11/22 15:47 Blood Culture - Preliminary Blood - Venous No growth after 48 hours. 07/11/22 15:44 Blood Culture - Preliminary Blood - Venous No growth after 48 hours. <MASSIEL Drummond - Last Filed: 07/14/22 12:05> Assessment and Plan (1) Acute exacerbation of CHF (congestive heart failure): Status: Acute <MASSIEL Drummond - Last Filed: 07/14/22 12:05> Assessment and Plan: This is an 82 year old [place]oc[place]-speaking female with history of CKD 4, hypertension, hyperlipidemia, diabetes, stroke, HFpEF who presents to the emergency department with shortness of breath found to have fluid overload Acute respiratory failure with hypoxia r/t CHF wean supplemental oxygen as tolerated Acute on chronic HFpEF follow Is&Os and daily weights low Na+ diet trops flat still volume overloaded, continue bumex drip seen by cardiology HTN bp elevated continue norvasc, hydralazine imdur dose increased UTI urine culture growing >100,000 mixed bacterial tatiana reporting dysuria -continue IV ceftriaxone CKD4 creatinine at baseline Chronic normocytic anemia likely anemia of chronic disease no evidence of bleeding s/p 2 u RBCs H/H improved ? h/o DM not on baseline meds hba1c 5.8 pocs under 150 HLD continue statin dvt ppx - mechanical devices code status - full code HCP - daughter Emilee attending - dr. carlton requires ongoing inpatient hospitalization for management of acute CHF requiring IV diuresis and close monitoring to prevent decompensation <MASSIEL Drummond - Last Filed: 07/14/22 12:05> Quality Stroke Does the patient have a stroke diagnosis?: No <MASSIEL Drummond - Last Filed: 07/14/22 12:05> VTE Prior VTE?: No <MASSIEL Drummond - Last Filed: 07/14/22 12:05> VTE Risk Level:: Medical - moderate - high <MASSIEL Drummond - Last Filed: 07/14/22 12:05> VTE Device Contraindication: N/A - Device Ordered <MASSIEL Drummond - Last Filed: 07/14/22 12:05> VTE Drug Contraindication: Treatment Not Indicated <MASSIEL Drummond - Last Filed: 07/14/22 12:05>
[2022-07-14] MEDS: Bumetanide 25 MG in Container,Empty 0 ML IVCONT (12:49)
[2022-07-14 16:29] LABS: Glucose, Whole Blood 151 mg/dL (60-115)
[2022-07-14] MEDS: Insulin Lispro 100 UNIT/ML 3 ML VIAL SUBCUT (16:43)
[2022-07-14] MEDS: cefTRIAXone sodium 1 GM in 0.9 % Sodium Chloride 50 ML IV (16:44)
[2022-07-14 19:46] LABS: Glucose, Whole Blood 145 mg/dL (60-115)
[2022-07-15 03:25] VITALS: BP 158/67; PULSE 77; RESP 20; TEMP 37.1; O2SAT 97
[2022-07-15 07:25] VITALS: BP 177/76; PULSE 77; RESP 20; TEMP 36.3; O2SAT 98
[2022-07-15 07:27] LABS: Anion Gap 13 (12-20); Blood Urea Nitrogen 63 mg/dL (9-16); Calcium 8.8 mg/dL (8.4-10.2); Carbon Dioxide 26 mmol/L (22-29); Chloride 104 mmol/L (96-108); Creatinine Clr Calc Pharmacy 21.6; Estimated Glomerular Filt Rate 19; Glucose Random 107 mg/dL (60-115); Potassium 3.9 mmol/L (3.3-5.1); Sodium 139 mmol/L (135-145)
[2022-07-15 07:50] LABS: Glucose, Whole Blood 99 mg/dL (60-115)
[2022-07-15] MEDS: Pregabalin 25 MG CAPSULE PO ×2 (09:17→22:20)
[2022-07-15] MEDS: Isosorbide Mononitrate 60 MG TAB.ER.24H PO (09:17)
[2022-07-15] MEDS: hydrALAZINE HCl 50 MG TABLET 100 MG PO ×3 (09:17→22:19)
[2022-07-15] MEDS: amLODIPine Besylate 10 MG TABLET PO (09:17)
[2022-07-15] MEDS: Atorvastatin Calcium 40 MG TABLET PO (09:18)
[2022-07-15] MEDS: Ferrous Sulfate 324 MG TABLET.DR PO ×3 (09:18→22:19)
[2022-07-15] MEDS: 0.9 % Sodium Chloride Flush 3 ML SYRINGE IVFLUSH ×2 (09:21→17:01)
[2022-07-15 11:35] VITALS: BP 136/62; PULSE 69; RESP 18; TEMP 36.8; O2SAT 89
[2022-07-15 11:59] LABS: Glucose, Whole Blood 117 mg/dL (60-115)
[2022-07-15] MEDS: Bumetanide 25 MG in Container,Empty 0 ML IVCONT (13:29)
--- NOTE | 2022-07-15 13:33 | HO.PM.IMPN ---
Subjective Subjective Date of Service: 07/16/22 Interval History: seen and examined this morning follow up for chf with ongoing fluid overload, denies sob, denies chest pain Review of Systems Review of Systems: Yes all other systems are reviewed and are negative Constitutional Constitutional: Denies chills and Denies fever(s) Cardiovascular Cardiovascular: Denies chest pain, Denies palpitations and Denies dyspnea Respiratory Respiratory: Denies cough and Denies dyspnea Gastrointestinal Gastrointestinal: Denies abdominal pain, Denies nausea and Denies vomiting Endocrine Endocrine: Denies palpitations Physical Exam Vital Signs: Vital Signs: Last Vital Signs Temp 98.2 F 07/15/22 11:35 Pulse 69 07/15/22 11:35 Resp 18 07/15/22 11:35 BP 136/62 07/15/22 11:35 Pulse Ox 89 L 07/15/22 11:35 O2 Del Method 07/15/22 11:35 O2 Flow Rate 2 07/15/22 11:35 Oxygen Flow Rate 1.5 07/11/22 12:55 BMI result Body Mass Index 33.8 Appearing in no acute distress lung sounds rales. pitting edema LE bilaterally heart regular rate rhythm, clear S1, S2 positive bowel sounds, abdomen is soft, nontender neuro patient is alert x3, no focal deficits Objective Data Active Medications Acetaminophen (Acetaminophen 325 Mg Tablet) 650 mg PO Q6H PRN PRN Reason: Pain, Mild (Pain Scale 1-3) Last Admin: 07/13/22 14:01 Dose: 650 mg Documented By: GARO Amlodipine Besylate (Amlodipine Besylate 10 Mg Tablet) 10 mg PO DAILY [facility]; Protocol Last Admin: 07/15/22 09:17 Dose: 10 mg Documented By: CRISELDA Atorvastatin Calcium (Atorvastatin Calcium 40 Mg Tablet) 40 mg PO DAILY [facility] Last Admin: 07/15/22 09:18 Dose: 40 mg Documented By: CRISELDA Dextrose (Dextrose 50 % 25 Gm/50 Ml Syringe) 25 gm IVPUSH Q15M PRN; Protocol PRN Reason: per Hypoglycemia Standing Ord. Docusate Sodium (Docusate Sodium 100 Mg Capsule) 100 mg PO DAILY PRN PRN Reason: Constipation Ferrous Sulfate (Ferrous Sulfate 324 Mg Tablet.Dr) 324 mg PO TID [facility] Last Admin: 07/15/22 09:18 Dose: 324 mg Documented By: CRISELDA Glucose (Glucose Gel 15 Gm Gel..Gram.) 15 gm PO Q15M PRN; Protocol PRN Reason: per Hypoglycemia Standing Ord. Hydralazine HCl (Hydralazine Hcl 50 Mg Tablet) 100 mg PO TID [facility]; Protocol Last Admin: 07/15/22 09:17 Dose: 100 mg Documented By: CRISELDA Bumetanide 25 mg/ IV (Miscellaneous Supplies) 100 mls @ 2 mls/hr IVCONT .Q24H [facility] Last Admin: 07/15/22 13:29 Dose: 0.5 mg/hr, 2 mls/hr Documented By: CRISELDA Ceftriaxone Sodium 1 gm/ (Sodium Chloride) 50 mls @ 100 mls/hr IV Q24H [facility] Last Infusion: 07/14/22 17:50 Dose: 0 mls/hr Documented By: GARO Insulin Human Lispro (Insulin Lispro 100 Unit/Ml 3 Ml Vial) 0 unit SUBCUT QIDACHS [facility]; Protocol Last Admin: 07/15/22 12:25 Dose: Not Given Documented By: CRISELDA Non-Admin Reason: No Insulin Coverage Isosorbide Mononitrate (Isosorbide Mononitrate 60 Mg Tab.Er.24h) 60 mg PO DAILY [facility]; Protocol Last Admin: 07/15/22 09:17 Dose: 60 mg Documented By: CRISELDA Omeprazole (Omeprazole 40 Mg Capsule.Dr) 40 mg PO DAILY PRN PRN Reason: Acid Reflux Ondansetron HCl (Ondansetron Hcl 4 Mg/2 Ml Vial) 4 mg IVPUSH Q8H PRN PRN Reason: Nausea and Vomiting Pharmacy Consult (Consult Rx Perform Med Rec) 1 each MISCELLANE ONCE PRN PRN Reason: Consult order Pregabalin (Pregabalin 25 Mg Capsule) 25 mg PO BID [facility] Last Admin: 07/15/22 09:17 Dose: 25 mg Documented By: CRISELDA Sodium Chloride (0.9 % Sodium Chloride Flush 3 Ml Syringe) 3 ml IVFLUSH QSHIFT [facility] Last Admin: 07/15/22 09:21 Dose: 3 ml Documented By: CRISELDA Labs CBC & Chem 7: 07/16/22 09:01 07/16/22 09:01 Labs: Laboratory Results - last 24 hr 07/14/22 07/14/22 07/15/22 16:22 19:35 06:28 Anion Gap 13 Estim Creat Clear Calc 21.6 Estimated GFR 19 POC Glucose 151 H 145 H Random Glucose 107 Calcium 8.8 07/15/22 07/15/22 07:24 11:34 Anion Gap Estim Creat Clear Calc Estimated GFR POC Glucose 99 117 H Random Glucose Calcium Assessment and Plan (1) Acute exacerbation of CHF (congestive heart failure): Status: Acute Plan This is an 82 year old [place]ian-speaking female with history of CKD 4, hypertension, hyperlipidemia, diabetes, stroke, HFpEF who presents to the emergency department with shortness of breath found to have fluid overload Acute respiratory failure with hypoxia secondary to heart failure with preserved ejection fraction follow Is&Os and daily weights low Na+ diet trops flat still volume overloaded, continue bumex drip seen by cardiology HTN bp elevated continue norvasc, hydralazine imdur dose increased UTI urine culture growing >100,000 mixed bacterial tatiana reporting dysuria continue IV ceftriaxone CKD4 creatinine at baseline Chronic normocytic anemia likely anemia of chronic disease no evidence of bleeding s/p 2 u RBCs H/H improved pre-DM type 2 not on baseline meds hba1c 5.8 pocs under 150 HLD continue statin dvt ppx - mechanical devices code status - full code HCP - daughter Emilee Attending Lance requires ongoing inpatient hospitalization for management of acute CHF requiring IV diuresis and close monitoring to prevent decompensation Quality Stroke Does the patient have a stroke diagnosis?: No VTE Prior VTE?: No VTE Risk Level:: Medical - moderate - high VTE Device Contraindication: N/A - Device Ordered VTE Drug Contraindication: Treatment Not Indicated
[2022-07-15 15:46] VITALS: BP 162/70; PULSE 79; RESP 19; TEMP 35.9; O2SAT 95
--- NOTE | 2022-07-15 15:48 | MHC.CM.PN ---
per rounds pt not ready for dc dc plan remains home with adult foster care
[2022-07-15 17:06] LABS: Glucose, Whole Blood 139 mg/dL (60-115)
[2022-07-15] MEDS: cefTRIAXone sodium 1 GM in 0.9 % Sodium Chloride 50 ML IV (17:15)
[2022-07-15 19:19] VITALS: BP 145/64; PULSE 76; RESP 19; TEMP 35.9; O2SAT 97
[2022-07-15 20:16] LABS: Glucose, Whole Blood 147 mg/dL (60-115)
[2022-07-16] VITALS (7 sets, daily range): BP systolic 144–183; BP diastolic 59–77; PULSE 66–81; RESP 12–20; TEMP 36–37.6; O2SAT 96–99
[2022-07-16 07:25] LABS: Glucose, Whole Blood 92 mg/dL (60-115)
[2022-07-16] MEDS: Atorvastatin Calcium 40 MG TABLET PO (08:57)
[2022-07-16] MEDS: 0.9 % Sodium Chloride Flush 3 ML SYRINGE IVFLUSH ×2 (08:57→16:47)
[2022-07-16] MEDS: Pregabalin 25 MG CAPSULE PO ×2 (08:57→20:50)
[2022-07-16] MEDS: Isosorbide Mononitrate 60 MG TAB.ER.24H PO (08:58)
[2022-07-16] MEDS: Ferrous Sulfate 324 MG TABLET.DR PO ×3 (08:58→20:50)
[2022-07-16] MEDS: amLODIPine Besylate 10 MG TABLET PO (08:58)
[2022-07-16] MEDS: hydrALAZINE HCl 50 MG TABLET 100 MG PO ×3 (08:58→20:50)
[2022-07-16 09:16] LABS: Hematocrit 29.9 % (37.0-47.0); Hemoglobin 9.7 g/dl (12.0-16.0); Mean Corpuscular HGB Conc 32.4 g/dl (31.0-35.0); Mean Corpuscular Volume 89.3 fL (80.0-98.0); Mean Platelet Volume 10.4 fL (9.4-12.3); Platelet Count 230 X10*3/uL (160-400); Red Blood Count 3.35 X10*6/uL (4.20-5.50); Red Cell Distribution Width 15.6 % (11.0-16.0); White Blood Count 7.8 X10*3/uL (4.8-10.8)
[2022-07-16 09:34] LABS: Anion Gap 15 (12-20); Blood Urea Nitrogen 72 mg/dL (9-16); Calcium 8.8 mg/dL (8.4-10.2); Carbon Dioxide 27 mmol/L (22-29); Chloride 102 mmol/L (96-108); Creatinine Clr Calc Pharmacy 20.7; Estimated Glomerular Filt Rate 18; Glucose Random 87 mg/dL (60-115); Potassium 3.8 mmol/L (3.3-5.1); Sodium 140 mmol/L (135-145)
[2022-07-16 09:42] LABS: B Type Natriuretic Peptide 380 pg/mL (<100)
[2022-07-16 10:56] LABS: Glucose, Whole Blood 135 mg/dL (60-115)
--- NOTE | 2022-07-16 11:01 | HO.PM.IMPN ---
Subjective Subjective Date of Service: 07/16/22 Interval History: seen and examined this morning follow up for chf with ongoing fluid overload, denies sob, denies chest pain Review of Systems Review of Systems: Yes all other systems are reviewed and are negative Constitutional Constitutional: Denies chills and Denies fever(s) Cardiovascular Cardiovascular: Denies chest pain, Denies palpitations and Denies dyspnea Respiratory Respiratory: Denies cough and Denies dyspnea Gastrointestinal Gastrointestinal: Denies abdominal pain, Denies nausea and Denies vomiting Endocrine Endocrine: Denies palpitations Physical Exam Vital Signs: Vital Signs: Last Vital Signs Temp 96.8 F 07/16/22 07:20 Pulse 73 07/16/22 07:20 Resp 18 07/16/22 07:20 BP 183/73 H 07/16/22 07:20 Pulse Ox 99 07/16/22 07:20 O2 Del Method 07/16/22 07:20 O2 Flow Rate 2 07/16/22 07:20 Oxygen Flow Rate 1.5 07/11/22 12:55 BMI result Body Mass Index 33.8 Appearing in no acute distress lung sounds are clear to auscultation heart regular rate rhythm, clear S1, S2 positive bowel sounds, abdomen is soft, nontender neuro patient is alert x3, no focal deficits Objective Data Active Medications Acetaminophen (Acetaminophen 325 Mg Tablet) 650 mg PO Q6H PRN PRN Reason: Pain, Mild (Pain Scale 1-3) Last Admin: 07/13/22 14:01 Dose: 650 mg Documented By: GARO Amlodipine Besylate (Amlodipine Besylate 10 Mg Tablet) 10 mg PO DAILY [facility]; Protocol Last Admin: 07/16/22 08:58 Dose: 10 mg Documented By: CRISELDA Atorvastatin Calcium (Atorvastatin Calcium 40 Mg Tablet) 40 mg PO DAILY [facility] Last Admin: 07/16/22 08:57 Dose: 40 mg Documented By: CRISELDA Dextrose (Dextrose 50 % 25 Gm/50 Ml Syringe) 25 gm IVPUSH Q15M PRN; Protocol PRN Reason: per Hypoglycemia Standing Ord. Docusate Sodium (Docusate Sodium 100 Mg Capsule) 100 mg PO DAILY PRN PRN Reason: Constipation Ferrous Sulfate (Ferrous Sulfate 324 Mg Tablet.) 324 mg PO TID [facility] Last Admin: 07/16/22 08:58 Dose: 324 mg Documented By: CRISELDA Glucose (Glucose Gel 15 Gm Gel..Gram.) 15 gm PO Q15M PRN; Protocol PRN Reason: per Hypoglycemia Standing Ord. Hydralazine HCl (Hydralazine Hcl 50 Mg Tablet) 100 mg PO TID [facility]; Protocol Last Admin: 07/16/22 08:58 Dose: 100 mg Documented By: CRISELDA Bumetanide 25 mg/ IV (Miscellaneous Supplies) 100 mls @ 2 mls/hr IVCONT .Q24H [facility] Last Admin: 07/15/22 13:29 Dose: 0.5 mg/hr, 2 mls/hr Documented By: CRISELDA Ceftriaxone Sodium 1 gm/ (Sodium Chloride) 50 mls @ 100 mls/hr IV Q24H [facility] Last Infusion: 07/15/22 17:47 Dose: 0 mls/hr Documented By: BRAN Insulin Human Lispro (Insulin Lispro 100 Unit/Ml 3 Ml Vial) 0 unit SUBCUT QIDACHS [facility]; Protocol Last Admin: 07/16/22 08:58 Dose: Not Given Documented By: CRISELDA Non-Admin Reason: No Insulin Coverage Isosorbide Mononitrate (Isosorbide Mononitrate 60 Mg Tab.Er.24h) 60 mg PO DAILY [facility]; Protocol Last Admin: 07/16/22 08:58 Dose: 60 mg Documented By: CRISELDA Omeprazole (Omeprazole 40 Mg Capsule.Dr) 40 mg PO DAILY PRN PRN Reason: Acid Reflux Ondansetron HCl (Ondansetron Hcl 4 Mg/2 Ml Vial) 4 mg IVPUSH Q8H PRN PRN Reason: Nausea and Vomiting Pharmacy Consult (Consult Rx Perform Med Rec) 1 each MISCELLANE ONCE PRN PRN Reason: Consult order Pregabalin (Pregabalin 25 Mg Capsule) 25 mg PO BID [facility] Last Admin: 07/16/22 08:57 Dose: 25 mg Documented By: CRISELDA Sodium Chloride (0.9 % Sodium Chloride Flush 3 Ml Syringe) 3 ml IVFLUSH QSHIFT [facility] Last Admin: 07/16/22 08:57 Dose: 3 ml Documented By: CRISELDA Labs CBC & Chem 7: 07/16/22 09:01 07/16/22 09:01 Labs: Laboratory Results - last 24 hr 07/15/22 07/15/22 07/15/22 11:34 17:03 20:09 MCV MCH MCHC RDW Plt Count MPV Absolute Nucleated RBC Nucleated RBC % (auto) Anion Gap Estim Creat Clear Calc Estimated GFR POC Glucose 117 H 139 H 147 H Random Glucose Calcium B-Natriuretic Peptide 07/16/22 07/16/22 07/16/22 07:18 09:01 09:01 MCV 89.3 MCH 29.0 MCHC 32.4 RDW 15.6 Plt Count 230 MPV 10.4 Absolute Nucleated RBC 0.000 Nucleated RBC % (auto) 0.0 Anion Gap 15 Estim Creat Clear Calc 20.7 Estimated GFR 18 POC Glucose 92 Random Glucose 87 Calcium 8.8 B-Natriuretic Peptide 07/16/22 07/16/22 09:01 10:49 MCV MCH MCHC RDW Plt Count MPV Absolute Nucleated RBC Nucleated RBC % (auto) Anion Gap Estim Creat Clear Calc Estimated GFR POC Glucose 135 H Random Glucose Calcium B-Natriuretic Peptide 380 H Assessment and Plan (1) Acute exacerbation of CHF (congestive heart failure): Status: Acute Plan This is an 82 year old [place]-speaking female with history of CKD 4, hypertension, hyperlipidemia, diabetes, stroke, HFpEF who presents to the emergency department with shortness of breath found to have fluid overload Acute respiratory failure with hypoxia secondary to heart failure with preserved ejection fraction follow Is&Os and daily weights low Na+ diet trops flat BNP trending down stop bumex drip, start po Bumex ash wraps to legs HTN bp elevated continue norvasc, hydralazine imdur dose increased UTI urine culture growing >100,000 mixed bacterial tatiana reporting dysuria continue IV ceftriaxone CKD4 creatinine at baseline Chronic normocytic anemia likely anemia of chronic disease no evidence of bleeding s/p 2 u RBCs H/H improved pre-DM type 2 not on baseline meds hba1c 5.8 pocs under 150 HLD continue statin dvt ppx - mechanical devices code status - full code HCP - daughter Emilee Attending Lance requires ongoing inpatient hospitalization for management of acute CHF requiring IV diuresis and close monitoring to prevent decompensation Quality Stroke Does the patient have a stroke diagnosis?: No VTE Prior VTE?: No VTE Risk Level:: Medical - moderate - high VTE Device Contraindication: N/A - Device Ordered VTE Drug Contraindication: Treatment Not Indicated
[2022-07-16] MEDS: Bumetanide 25 MG in Container,Empty 0 ML IVCONT (12:28)
[2022-07-16 15:41] LABS: Glucose, Whole Blood 118 mg/dL (60-115)
[2022-07-16] MEDS: cefTRIAXone sodium 1 GM in 0.9 % Sodium Chloride 50 ML IV (16:47)
[2022-07-16 19:52] LABS: Glucose, Whole Blood 128 mg/dL (60-115)
[2022-07-17] VITALS (9 sets, daily range): BP systolic 136–159; BP diastolic 58–70; PULSE 69–81; RESP 16–18; TEMP 36.2–37.4; O2SAT 87–98
[2022-07-17] MEDS: Acetaminophen 325 MG TABLET 650 MG PO (00:26)
[2022-07-17 07:20] LABS: Glucose, Whole Blood 82 mg/dL (60-115)
[2022-07-17] MEDS: hydrALAZINE HCl 50 MG TABLET 100 MG PO ×3 (08:40→20:34)
[2022-07-17] MEDS: Ferrous Sulfate 324 MG TABLET.DR PO ×3 (08:40→20:34)
[2022-07-17] MEDS: Atorvastatin Calcium 40 MG TABLET PO (08:41)
[2022-07-17] MEDS: 0.9 % Sodium Chloride Flush 3 ML SYRINGE IVFLUSH ×3 (08:41→20:34)
[2022-07-17] MEDS: Pregabalin 25 MG CAPSULE PO ×2 (08:41→20:34)
[2022-07-17] MEDS: amLODIPine Besylate 10 MG TABLET PO (08:41)
[2022-07-17] MEDS: Isosorbide Mononitrate 60 MG TAB.ER.24H PO (08:41)
[2022-07-17] MEDS: Bumetanide 1 MG TABLET PO (08:41)
--- NOTE | 2022-07-17 10:26 | P.DS_ITS ---
DS: Providers Provider Date of Service: 07/17/22 Date of admission: 07/11/22 17:33 Primary care physician: Kya Mata MD Consults: 07/11/22 17:47 Consult to Cardiology Routine Consulting Provider: Noé Deal Reason for consultation: chf Has provider been notified: No DS: Diagnosis Discharge Diagnosis (1) Acute exacerbation of CHF (congestive heart failure): Status: Acute DS: Summary Hospital Course Hospital Course: Chief Complaint: shortness of breath this is an 82-year-old Lithuanian-speaking female with multiple medical problems who presents to the emergency department today with shortness of breath.? History was obtained with the assistance of her daughter at the bedside.? Patient was in her usual state of health until today when she had sudden onset of shortness of breath.? She has associated dry cough.? Denies any fever, chills.? No chest pain at this time. At home her daughter checked her oxygen saturation she was noted to be in the 80s. She came to the emergency department for evaluation, chest x-ray showed evidence of fluid overload, BNP was elevated at 492. She afebrile, covid was negative. ? She was initially placed on 2 L of supplemental oxygen, she was trialed off oxygen and her oxygen saturation dropped to 88% on room air.? She is currently saturating 94% on 2 L. ? She was given a dose of IV Lasix and the decision was made to admit her to the hospital for further management with working diagnosis of acute on chronic CHF Hospital course: This is an 82 year old Lithuanian-speaking female with history of CKD 4, hypertension, hyperlipidemia, diabetes, stroke, HFpEF was admitted for management of decompensation diastolic heart failure with fluid overload. Heart failure management consisted IV diuretic with Bumex drip under the direction of cardiology, over the course of treatment, 7.3 Liters of fluid have been removed and Bumex drip changed to oral Bumex 1 mg daily. Additionally medication have been adjsted with increased of Hydralazine to 100 mg tid and increased of Mdur to 60 mg daily and clinically feels better at moment without hypoxia. Acute respiratory failure with hypoxia secondary to heart failure with preserved ejection fraction--due to above and resolved. HTN--much better with incrased of Hydralazine and Mdur as above. UTI--completed treatment with IV Ceftriaxone CKD4 creatinine at baseline Chronic normocytic anemia likely anemia of chronic disease no evidence of bleeding s/p 2 u RBCs H/H improved pre-DM type 2 not on baseline meds hba1c 5.8 to watch diet HLD continue statin Final diagnis; Acute on chronic HFpEF Acute hypoxic respiratory failure CKD4 pre diabetes HTN HLD anemia of chronic disease UTI Time Spent with Patient Time attestation: Total time spent providing and/or coordinating discharge services: Discharge coordination time: Greater than 30 minutes Quality: Safe Use of Opioids Does Pt have an Active Cancer Diagnosis on the Problem List?: No Quality: Stroke Does the patient have a stroke diagnosis?: No Physical Exam Vital Signs: Vital Signs: Last Vital Signs Temp 98.1 F 07/17/22 08:00 Pulse 69 07/17/22 08:00 Resp 16 07/17/22 08:00 BP 136/58 L 07/17/22 08:00 Pulse Ox 98 07/17/22 08:00 O2 Del Method 07/17/22 08:00 O2 Flow Rate 2 07/17/22 08:00 Oxygen Flow Rate 1.5 07/11/22 12:55 BMI result Body Mass Index 33.8 DS: Data Data Completed and Pending Labs on day of discharge: Laboratory Results - last 24 hr 07/16/22 07/16/22 07/16/22 10:49 15:31 19:46 POC Glucose 135 H 118 H 128 H 07/17/22 07:06 POC Glucose 82 Discharge Plan Discharge Anticipated Discharge Date/Time: 07/17/22 10:20 Patient Disposition: Home Health Service Discharge Diagnosis: Acute exacerbation of copd Referrals: jean [Other] - 1 Week Kay Chávez MD [Primary Care Provider] - 1 Week Discharge Medications: New hydralazine 50 mg Tablet 100 mg PO TID Qty: 90 0RF Protocol: Hold for SBP< HOLD for SBP < : 90 isosorbide mononitrate 60 mg Tablet Extended Release 24 Hr 60 mg PO DAILY Qty: 60 0RF Protocol: Hold for SBP< HOLD for SBP < : 90 bumetanide 1 mg Tablet 1 mg PO DAILY Qty: 30 0RF Protocol: Hold for SBP< HOLD for SBP < : 90 Continued (DME) miscellaneous medical supply Misc See Rx Instructions .MEDSUPPLY Qty: 1 0RF Rx Instructions: As directed atorvastatin 40 mg tablet 40 mg PO DAILY 90 Days Qty: 90 1RF cyanocobalamin (vitamin B-12) [Vitamin B-12] 1,000 mcg tablet 1,000 mcg PO DAILY 90 Days Qty: 90 1RF multivitamin with folic acid 400 mcg tablet 1 tab PO DAILY 90 Days Qty: 90 1RF amlodipine 10 mg tablet 10 mg PO DAILY 90 Days Qty: 90 1RF pregabalin [Lyrica] 25 mg capsule 25 mg PO BID 30 Days Qty: 60 0RF ferrous sulfate [FeroSul] 325 mg (65 mg iron) tablet 1 tab PO TID omeprazole 40 mg capsule,delayed release(DR/EC) 40 mg PO DAILY PRN (Reason: Acid Reflux) acetaminophen 325 mg Tablet 650 mg PO Q6H PRN (Reason: Pain) (DME) miscellaneous medical supply Misc See Rx Instructions .MEDSUPPLY Qty: 1 0RF Rx Instructions: pneumatic compression stockings Discontinued hydralazine 50 mg tablet 100 mg PO TID Qty: 180 0RF Protocol: Hold for SBP< HOLD for SBP < : 90 isosorbide mononitrate 30 mg tablet extended release 24 hr 30 mg PO DAILY Qty: 30 0RF Protocol: Hold for SBP< HOLD for SBP < : 90 Discharge Orders: Discharge Order (Routine); Ordered 07/17/22 Ordered By: Jozef Carlton Diet: Advance to usual diet Activity on Discharge: As tolerated Stand Alone Forms: Patient Portal Discharge page Care Plan Goals: Full recovery Health Concerns: Chronic heart failure Plan of Treatment: Take Bumex and all other medications as recommended avoid salty food weight yourself daily aor several days a sandra Assessment: as above
[2022-07-17 11:15] LABS: Glucose, Whole Blood 118 mg/dL (60-115)
--- NOTE | 2022-07-17 11:45 | MHC.CM.PN ---
pt dcd home via chair bonny henry notified of pharmacy picking tech time 230 referral jean pina
--- NOTE | 2022-07-17 11:59 | W.MHC.F2F ---
Service Date Service Date: 07/17/22 Encounter Date of encounter: 07/17/22 Reasons for Services Signs and symptoms assessed: shortnesss of breath Reason for longterm: medication management, medication treatment and teach disease management Homebound: Leaving the home is medically contraindicated at this time without the asist of a device and/or another person due th the listed conditions above and below. Reason homebound: shortness of breath at rest and weakness related to hospital stay Homebound supporting statement: Homebound due to shortness of breath at rest related to heart failure and therefore needs the assistance of another person Certification: Based on the above findings, I certify that this patient is confined to the home and needs intermittent longterm care, physical therapy and/or speech therapy, or continues to need occupational therapy. The patient is under my care, and I have initiated the establishment of the plan of care. The patient will be followed by a physician who will periodically review the plan of care.
--- NOTE | 2022-07-17 12:16 | MHC.CM.PN ---
pt to go home by chair van at 2:00 w/vna ?hvns
--- NOTE | 2022-07-17 14:08 | MHC.CM.PN ---
[facility] has indicated a SOC of Friday07/21/22; CM has checked with MD who is approving.
--- NOTE | 2022-07-17 15:35 | MHC.CM.PN ---
Per RN, Patient is in need of a Home O2 Eval. Per Tracy from [facility], Tracy will arrange appropriate transportation to home based on that eval ([facility] if home O2 is needed and Chair van if home O2 is not needed). RN is aware and has been in touch with Tracy from [facility] regarding this arrangement.
[2022-07-17 15:57] LABS: Glucose, Whole Blood 115 mg/dL (60-115)
[2022-07-17] MEDS: cefTRIAXone sodium 1 GM in 0.9 % Sodium Chloride 50 ML IV (16:09)
[2022-07-17 20:14] LABS: Glucose, Whole Blood 136 mg/dL (60-115)
[2022-07-18 03:18] VITALS: BP 153/67; PULSE 83; RESP 18; TEMP 37.4; O2SAT 93
[2022-07-18 06:56] VITALS: O2SAT 92
[2022-07-18] MEDS: Acetaminophen 325 MG TABLET 650 MG PO (07:25)
[2022-07-18] MEDS: 0.9 % Sodium Chloride Flush 3 ML SYRINGE IVFLUSH (07:29)
[2022-07-18 07:35] VITALS: BP 147/78; PULSE 89; RESP 18; TEMP 37.3; O2SAT 94
[2022-07-18 07:44] LABS: Glucose, Whole Blood 86 mg/dL (60-115)
[2022-07-18] MEDS: Ferrous Sulfate 324 MG TABLET.DR PO (09:20)
[2022-07-18] MEDS: Pregabalin 25 MG CAPSULE PO (09:20)
[2022-07-18] MEDS: Isosorbide Mononitrate 60 MG TAB.ER.24H PO (09:20)
[2022-07-18] MEDS: amLODIPine Besylate 10 MG TABLET PO (09:20)
[2022-07-18] MEDS: hydrALAZINE HCl 50 MG TABLET 100 MG PO (09:20)
[2022-07-18] MEDS: Bumetanide 1 MG TABLET PO (09:20)
[2022-07-18] MEDS: Atorvastatin Calcium 40 MG TABLET PO (09:20)
--- NOTE | 2022-07-18 11:02 | MHC.CM.PN ---
Per MD, Patient is medically cleared for dc to home today with services; [facility] has been notified of today's dc. Patient will dc to home with new O2; per RT, Patient only needs O2 @ night but she will be sent home with an O2 tank anyway and Patient/family will need to phone [facility] once she is home in order for new O2 set up/ delivery to take place (CM provided Daughter/Emilee with Ap[facility]ne's phone # and she expressed understanding of the instructions). Patient will dc to home today at 2PM via [facility]. Last IMM addressed on 07/17/2022.
[2022-07-18 11:12] LABS: Glucose, Whole Blood 112 mg/dL (60-115)
== END 2022-07-18 14:34 | disposition home health service (06) | DRG 291 ==
LOC: HO.ED 16:55 → HO.EDOVER 17:39 → HO.IMC 07-12 16:35
PROVIDERS: Nurse Practitioner Acute Care; Physician Assistant; Admitting Provider Physician Assistant Medical; Emergency Provider Emergency Medicine Emergency Medical Services; PCP Internal Medicine; Visit Provider Internal Medicine
DX: I13.0 Hypertensive heart and chronic kidney disease with heart failure and stage 1 through stage 4 chronic kidney disease, or unspecified chronic kidney disease (principal); I50.33 Acute on chronic diastolic (congestive) heart failure; J96.01 Acute respiratory failure with hypoxia; N39.0 Urinary tract infection, site not specified; N18.4 Chronic kidney disease, stage 4 (severe); R73.03 Prediabetes; E78.5 Hyperlipidemia, unspecified; D63.1 Anemia in chronic kidney disease; Z20.822 Contact with and (suspected) exposure to COVID-19; Z91.041 Radiographic dye allergy status; Z79.899 Other long term (current) drug therapy
CPT/HCPCS: 0241U; 36415; 36600; 71045; 80048; 80076; 81001; 82947; 83036; 83605; 83735; 83880; 84484; 85025; 85027; 86850; 86900; 86901; 86923; 87040; 87086; 93005; 93306; 94762; 99285; C1758; J0696; J1940; P9016; Q9957

== ENCOUNTER 2022-08-17 16:58 | Emergency (ER) | payer OTHER, SELFPAY ==
--- NOTE | 2022-08-17 17:06 | ED_ITS ---
HPI - SOB/Dyspnea General Chief Complaint: General Medical Stated Complaint: sob Time Seen by Provider: 08/17/22 17:06 Source: patient and EMS Mode of arrival: EMS Limitations: language barrier History of Present Illness HPI Narrative: . Patient's oxygen tank is not working properly, she is normally on 2 L nasal holiday weekend. Patient does not have access to oxygen at home, was found to 08/13/22 respiratory symptoms. release Context: other (Oxygen tank failure) Related Data Home oxygen amount: 2 liters Medication Instructions Recorded Confirmed acetaminophen 325 mg tablet 650 mg PO Q6H PRN Pain 09/10/21 08/17/22 08/13/22 cyanocobalamin (vitamin B-12) 1,000 mcg PO BEDTIME 08/17/22 08/17/22 Medication Instructions Recorded mcg tablet Previous Rx's Medication Instructions Recorded ferrous sulfate 325 mg (65 mg 325 mg PO TID 30 days #90 tabs 08/13/22
--- NOTE | 2022-08-17 17:06 | ED.SOB ---
HPI - SOB/Dyspnea General Chief Complaint: General Medical Stated Complaint: sob Time Seen by Provider: 08/17/22 17:06 Source: patient and EMS Mode of arrival: EMS Limitations: language barrier History of Present Illness HPI Narrative: 82-year-old female presents via EMS for hypoxia secondary to oxygen tank failure. Patient's oxygen tank is not working properly, she is normally on 2 L nasal cannula continuous. Tank is unable to be repaired or replaced as it is a holiday weekend. Patient does not have access to oxygen at home, was found to be 86% on room air. Family does not report any altered mental status or upper respiratory symptoms. MD elicited complaint: shortness of breath Pertinent past history: COPD and congestive heart failure Onset (ago): hour(s) (Within hours of arrival) Context: other (Oxygen tank failure) Known history of: COPD and congestive heart failure Associated symptoms: denies other symptoms Treatment prior to arrival: oxygen Related Data Home oxygen amount: 2 liters Home Medications Medication Instructions Recorded Confirmed acetaminophen 325 mg tablet 650 mg PO Q6H PRN Pain 09/10/21 08/17/22 amlodipine 10 mg tablet 10 mg PO BEDTIME 08/17/22 08/17/22 atorvastatin 40 mg tablet 40 mg PO BEDTIME 08/17/22 08/17/22 bumetanide 1 mg tablet 1 mg PO DAILY 08/17/22 08/17/22 cyanocobalamin (vitamin B-12) 1,000 mcg PO BEDTIME 08/17/22 08/17/22 1,000 mcg tablet (Vitamin B-12) multivitamin with folic acid 400 1 tab PO BEDTIME 08/17/22 08/17/22 mcg tablet Previous Rx's Medication Instructions Recorded ferrous sulfate 325 mg (65 mg 325 mg PO TID 30 days #90 tabs 08/13/22 iron) tablet (FeroSul) hydralazine 50 mg tablet 100 mg PO TID #90 tabs 08/13/22 isosorbide mononitrate 60 mg 60 mg PO DAILY #60 tabs 08/13/22 tablet,extended release 24 hr Allergies Allergy/AdvReac Type Severity Reaction Status Date / Time Iodinated Contrast Media Allergy Unknown UNKNOWN Verified 08/13/22 16:05 [IODINATED CONTRAST MEDIA] Review of Systems Review of Systems: Constitutional: No Fever, No Chills ENT/Mouth: No sore throat, no congestion Cardiovascular: No Chest Pain, No SOB Respiratory: No Cough, No Dyspnea Gastrointestinal: No Nausea, No Vomiting, No Diarrhea, No abdominal Pain Genitourinary: No Dysuria, No Hematuria Musculoskeletal: No joint pain, No Myalgias Skin: No Skin lacerations, No rash Neuro: No Weakness, No Numbness, No Paresthesias, No Loss of Consciousness, No Dizziness, No Headache Yes all other systems are reviewed and are negative [facility] Past Medical History Attestation statement: The following information was validated with the patient. Source: old records reviewed Medical History Abscess of forearm, right Acute on chronic diastolic heart failure Acute respiratory failure with hypoxia Anemia B12 deficiency Chronic renal insufficiency CKD (chronic kidney disease) Congestive heart failure Diabetes Femoral artery stenosis Gram-positive bacteremia High cholesterol Hypertension Hypoxia Lower extremity edema Psoriasis of scalp PVD (peripheral vascular disease) Surgical History History of female sterilization History of shoulder surgery Family History Family History Father No problems noted. Mother No problems noted. Social History Social History Household Members: Family Household Members Other:: Daughter Housing: House Do you presently have visiting nurse or other home services: Yes Alcohol intake: unknown Patient Tobacco Use Status: Never used Tobacco e-Cigarette/Vaping Use: Never Used Second Hand Smoke Exposure: No Advance Directives: Yes Advance Directives on File: Yes Advance Directives Date on File: 04/18/21 service: No Current occupational status: retired and disabled Cognitive needs: Yes Hearing needs: No Vision needs: No Physical Exam Vital Signs: Vital Signs: Last Vital Signs Temp 98.4 F 08/17/22 22:12 Pulse 81 08/17/22 22:12 Resp 18 08/17/22 22:12 BP 166/76 H 08/17/22 22:12 Pulse Ox 97 08/17/22 22:12 O2 Del Method 08/17/22 22:12 O2 Flow Rate 2 08/17/22 22:12 BMI result Body Mass Index 36.0 Appearance: Alert. Oriented X3. No acute distress. Eyes: Pupils equal, round and reactive to light. Arcus senilis, pterygium noted to the left eye ENT: Pharynx normal. Neck: Normal inspection. Neck supple. CVS: Normal heart rate and rhythm. Pulses normal. Respiratory: No respiratory distress. Breath sounds normal. Abdomen: Soft and nontender. Skin: Skin warm and dry. Normal skin color. Normal skin turgor. Extremities: Bilateral lower extremity edema, moves extremities against resistance. Patient is nonambulatory Neuro: No motor deficit. No sensory deficit. Cranial nerves 2-12 intact. Course Course Course Narrative: 82-year-old female presents via EMS for hypoxia secondary to oxygen tank failure. EMS reports that patient's family states that pain patient is at her baseline, and that they were unable to get the oxygen tank serviced because it is a holiday. Patient is on continuous O2 2 L. She was found to be hypoxic at 86% with out her oxygen. Will order labs, and urinalysis with case management. 18:13 BUN elevated at 51, creatinine 2.53, prior values on 07/16/2022 BUN 72, and creatinine 2.59, today's values are improvement to prior. H&H 9.0/28.5, consistent with prior values, and improved from June of 2022. 00:15 physician observation started at this time. Patient pending case management. Medical Decision Making Differential Diagnosis Differential Diagnoses: The differential diagnosis associated with the presentation includes COVID, influenza, RSV, mechanical failure of oxygen tank Admission/Observation Consideration of admission/observation: Escalation of care including admission/observation considered Consult Healthcare Provider Case management Lab Data MDM Lab Attestation statement: I reviewed the patient's lab results. Result Diagrams: 08/17/22 17:24 08/17/22 17:24 Labs: Lab Results 08/17/22 08/17/22 08/17/22 Range/Units 17:24 17:24 17:24 WBC 7.8 (4.8-10.8) X10*3/uL RBC 3.15 L (4.20-5.50) X10*6/uL Hgb 9.0 L (12.0-16.0) g/dl Hct 28.5 L (37.0-47.0) % MCV 90.5 (80.0-98.0) fL MCH 28.6 (27.0-33.0) pg MCHC 31.6 (31.0-35.0) g/dl RDW 15.3 (11.0-16.0) % Plt Count 209 (160-400) X10*3/uL MPV 11.1 (9.4-12.3) fL Immature Gran % (Auto) 0.8 H (0.0-0.4) % Neut % (Auto) 73.0 (45-73) % Lymph % (Auto) 15.1 L (20-40) % [place] % (Auto) 7.2 (2-11) % Eos % (Auto) 3.3 (0-4) % Baso % (Auto) 0.6 (0-2) % Lymph # (Auto) 1.2 (1.2-4.9) X10*3/uL [place] # (Auto) 0.6 (0.1-1.2) X10*3/uL Eos # (Auto) 0.3 (0.0-0.4) X10*3/uL Baso # (Auto) 0.1 (0.0-0.2) X10*3/uL Abs Immat Gran (auto) 0.06 H (0.00-0.03) X10*3/uL Absolute Neuts (auto) 5.7 (2.0-8.3) x10*3/uL Absolute Nucleated RBC 0.000 (0.0-0.012) X10*3/uL Nucleated RBC % (auto) 0.0 (0.0-0.2) /100WBC Sodium 137 (135-145) mmol/L Potassium 4.0 (3.3-5.1) mmol/L Chloride 106 (96-108) mmol/L Carbon Dioxide 22 (22-29) mmol/L Anion Gap 13 (12-20) BUN 51 H (9-16) mg/dL Creatinine 2.53 H (0.5-1.4) mg/dL Estim Creat Clear Calc 19.9 Estimated GFR 18 Random Glucose 158 H (60-115) mg/dL Calcium 9.0 (8.4-10.2) mg/dL Influenza Type A (PCR) NEGATIVE (Negative) Influenza Type B (PCR) NEGATIVE (Negative) RSV RNA Qual (PCR) NEGATIVE (Negative) SARS-CoV-2 RNA (RT-PCR) NEGATIVE (Negative) Discharge Plan Discharge Clinical Impression: Hypoxia Patient Disposition: Still a Patient Prescriptions: No Action acetaminophen 325 mg Tablet 650 mg PO Q6H PRN (Reason: Pain) atorvastatin 40 mg tablet 40 mg PO BEDTIME cyanocobalamin (vitamin B-12) [Vitamin B-12] 1,000 mcg tablet 1,000 mcg PO BEDTIME amlodipine 10 mg tablet 10 mg PO BEDTIME bumetanide 1 mg tablet 1 mg PO DAILY Protocol: Hold for SBP< HOLD for SBP < : 90 multivitamin with folic acid 400 mcg tablet 1 tab PO BEDTIME ferrous sulfate [FeroSul] 325 mg (65 mg iron) tablet 325 mg PO TID 30 Days Qty: 90 3RF hydralazine 50 mg tablet 100 mg PO TID Qty: 90 0RF Protocol: Hold for SBP< HOLD for SBP < : 90 isosorbide mononitrate 60 mg tablet extended release 24 hr 60 mg PO DAILY Qty: 60 0RF Protocol: Hold for SBP< HOLD for SBP < : 90
[2022-08-17 17:08] VITALS: PULSE 95; RESP 16; TEMP 36.6; O2SAT 98; BMI 36.0
[2022-08-17 17:15] VITALS: BP 170/74
[2022-08-17 17:27] LABS: MANUAL DIFF FLAG NO
[2022-08-17 17:36] LABS: Basophils Absolute Auto 0.1 X10*3/uL (0.0-0.2); Basophils Percent Auto 0.6 % (0-2); Eosinophils Absolute Auto 0.3 X10*3/uL (0.0-0.4); Eosinophils Percent Auto 3.3 % (0-4); Hematocrit 28.5 % (37.0-47.0); Imm Gran Abs Auto 0.06 X10*3/uL (0.00-0.03); Imm Gran Pct Auto 0.8 % (0.0-0.4); Lymphocytes Absolute Auto 1.2 X10*3/uL (1.2-4.9); Lymphocytes Percent Auto 15.1 % (20-40); Mean Corpuscular HGB Conc 31.6 g/dl (31.0-35.0); Mean Corpuscular Hemoglobin 28.6 pg (27.0-33.0); Mean Corpuscular Volume 90.5 fL (80.0-98.0); Mean Platelet Volume 11.1 fL (9.4-12.3); Monocytes Absolute Auto 0.6 X10*3/uL (0.1-1.2); Monocytes Percent Auto 7.2 % (2-11); Neutrophils Absolute Auto 5.7 x10*3/uL (2.0-8.3); Platelet Count 209 X10*3/uL (160-400); Red Blood Count 3.15 X10*6/uL (4.20-5.50); Red Cell Distribution Width 15.3 % (11.0-16.0); White Blood Count 7.8 X10*3/uL (4.8-10.8)
[2022-08-17 17:50] LABS: Anion Gap 13 (12-20); Blood Urea Nitrogen 51 mg/dL (9-16); Carbon Dioxide 22 mmol/L (22-29); Chloride 106 mmol/L (96-108); Creatinine Clr Calc Pharmacy 19.9; Estimated Glomerular Filt Rate 18; Glucose Random 158 mg/dL (60-115); Sodium 137 mmol/L (135-145)
--- NOTE | 2022-08-17 18:21 | PHA.MEDREC ---
Pharmacy Consult ? Medication Reconciliation Pharmacy has completed the medication reconciliation. Med rec complete by reviewing claim history with daughter at patient bedside. Daughter handles medications but doesn't know them off the top of her head. Reviewed list with her and she confirmed what patient is taking, and when.
[2022-08-17 18:28] LABS: Influenza A PCR NEGATIVE (Negative); Influenza B PCR NEGATIVE (Negative); Resp Syncy Virus RNA Qual PCR NEGATIVE (Negative); SARS COV2 PCR INHOUSE NEGATIVE (Negative)
[2022-08-17 19:13] VITALS: BP 157/74; PULSE 85; RESP 16; TEMP 36.8; O2SAT 97
--- NOTE | 2022-08-17 19:30 | PC.NURSE ---
This mortgage or loan underwriter assumed care of this PT at 1900.
--- NOTE | 2022-08-17 20:24 | PC.NURSE ---
PT alert to self and situation, denies pain. Resting quietly on stretcher. No apparent distress.
[2022-08-17 22:12] VITALS: BP 166/76; PULSE 81; RESP 18; TEMP 36.9; O2SAT 97
[2022-08-18 00:45] VITALS: BP 178/76; PULSE 77; RESP 18; O2SAT 97
--- NOTE | 2022-08-18 00:45 | PC.NURSE ---
PT reports 06/03 headache, provider notified. New order for Tylenol. Meds given as documented.
--- NOTE | 2022-08-18 01:17 | MHC.CLN ---
Pt transferred over to a hospital bed. Pt given hailey care and set up on [employer] system. Pt given warm blankets and call story placed in reach
--- NOTE | 2022-08-18 01:29 | MHC.EDTECH ---
Unable to collect urine sample due to Pt incontinence. Lucina Walter made aware.
--- NOTE | 2022-08-18 04:15 | PC.NURSE ---
PT sleeping, no apparent distress. Will continue to monitor.
[2022-08-18 06:51] VITALS: BP 148/60; PULSE 66; RESP 18
[2022-08-18 07:16] VITALS: BP 149/62; PULSE 66; RESP 18; TEMP 36.5; O2SAT 98
[2022-08-18 14:11] VITALS: BP 143/55; PULSE 76; RESP 20; TEMP 36.6; O2SAT 98
[2022-08-18 16:50] VITALS: BP 157/59; PULSE 78; RESP 16; TEMP 36.7; O2SAT 99
--- NOTE | 2022-08-18 21:06 | PC.NURSE ---
Pt's V/S are stable, pt is o2 2l NC. Pt meds were given pt does not appears any distress.
[2022-08-19 00:24] VITALS: BP 140/58; PULSE 75; RESP 16; TEMP 36.9; O2SAT 95
--- NOTE | 2022-08-19 06:30 | PC.NURSE ---
Pt was cleaned, pads were changed, and a new purewick was put in place. Pt had no complaints at time of interaction, she was A&Ox4, GCS 15. No apparent distress.
[2022-08-19 07:21] VITALS: BP 142/55; PULSE 74; RESP 18; TEMP 36.6; O2SAT 97
[2022-08-19 08:46] VITALS: BP 136/62; PULSE 73; RESP 17; TEMP 36.7; O2SAT 99
--- NOTE | 2022-08-19 09:14 | MHC.CM.ED ---
Received case management consult over the weekend. Patient was discharged from [facility] in June with oxygen via [facility]. Patient came to the ER on 08/17 because she was out of oxygen and short of breath. T/W spoke with [facility] on-call services via telephone at [phone]. Patient's daughter, Emilee, confirmed patient's concentrator was not working. [facility] will come to patient's home today to exchange the concentrator and bring patient an extra tank. Emilee aware and will notify T/W when this delivery happens. Per Emilee, patient will need transport home via Chair Van. A BLS stretcher will not fit in her door. Continue to monitor for d/c needs.
[2022-08-19 09:38] VITALS: BP 152/60; PULSE 75; RESP 18; TEMP 36.8; O2SAT 97
--- NOTE | 2022-08-19 10:58 | MHC.CM.ED ---
Received telephone call from patient's daughter, Emilee. New O2 concentrator and O2 tank have been delivered. Attempted to book chair van for patient with [facility]. Chair van not available. Chair van with BLS covering. Crew will help patient in the home. Patient, Tommy WALKER and Elly RODRIGUEZ aware. Continue to monitor for d/c needs.
== END 2022-08-19 11:40 | disposition home or self-care (01) ==
PROVIDERS: Nurse Practitioner Family; Emergency Provider Internal Medicine; PCP Internal Medicine
DX: R09.02 Hypoxemia (principal); R06.02 Shortness of breath; Z20.828 Contact with and (suspected) exposure to other viral communicable diseases; E11.22 Type 2 diabetes mellitus with diabetic chronic kidney disease; I13.0 Hypertensive heart and chronic kidney disease with heart failure and stage 1 through stage 4 chronic kidney disease, or unspecified chronic kidney disease; N18.9 Chronic kidney disease, unspecified; I50.33 Acute on chronic diastolic (congestive) heart failure; E78.5 Hyperlipidemia, unspecified; Z79.02 Long term (current) use of antithrombotics/antiplatelets; Z79.899 Other long term (current) drug therapy
CPT/HCPCS: 0241U; 36415; 80048; 82947; 85025; 99285

== ENCOUNTER 2022-12-24 06:42 | Inpatient (IN) | payer OTHER, SELFPAY ==
[2022-12-24] VITALS (14 sets, daily range): BP systolic 91–168; BP diastolic 49–76; PULSE 76–103; RESP 16–26; TEMP 36.5–36.7; O2SAT 84–98; BMI 35.1; BMI 35.4
--- NOTE | ~2022-12-24 | XR_ITS ---
EXAMINATION: XR CHEST CLINICAL INFORMATION: Shortness of breath. COMPARISON: 07/11/2022 chest radiograph. TECHNIQUE: Frontal view of the chest was obtained. FINDINGS: There are increased pulmonary vascular markings. The heart is mildly enlarged. The mediastinal structures are unremarkable. XR/XR chest 1V IMPRESSION: Mild CHF represents interval worsening from the previous study.
--- NOTE | 2022-12-24 06:59 | ECG_ITS ---
Test Reason : chest pain Blood Pressure : / mmHG Vent. Rate : 092 BPM Atrial Rate : 092 BPM P-R Int : 150 ms QRS Dur : 116 ms QT Int : 380 ms P-R-T Axes : 054 -20 082 degrees QTc Int : 469 ms Normal sinus rhythm Minimal voltage criteria for LVH, may be normal variant ( [place] product ) ST & T wave abnormality, consider lateral ischemia Abnormal ECG When compared with ECG of 11-JUL-2022 14:22, T wave inversion more evident in Lateral leads Referred By: Generic ED Physician Electronically Signed By:RAÚL BLUE MD
--- NOTE | 2022-12-24 07:27 | PC.NURSE ---
Addendum entered by Sirisha Kimble 12/24/22 07:45: Pt tachypneic breathing 24-30, shallow Original Note: Pt is alert/oriented x 2. [place] speaking primarily. daughter at bedside. Pt reports abd pain x 2 days with nausea and SOB this AM. +3-4 edema to ble, normal for pt per family. crackles hear to b/l bases. skin color pwd. NSR on monitor. titrated to oxymask 6lpm, sat 96%, will continue to titrate. Speaking 5-6 word sentences.
--- NOTE | 2022-12-24 07:39 | ED.GENADULT ---
HPI - General Adult General Chief complaint: Dyspnea Stated complaint: sob Time Seen by Provider: 12/24/22 07:06 Source: patient Mode of arrival: ambulatory Limitations: no limitations History of Present Illness HPI narrative: 86-year-old female with history of right-sided decompensated heart failure, CKD, and is oxygen dependent on 2 liters presents to ED for shortness of breath for the past 2 days. Patient is bedbound and states shortness of breath for the past 2 days. Patient states history of heart failure in the past. Patient states also history of increased swelling of lower extremity. Patient states also chest pain. Patient states no fever, chills, or coughing up blood. She states no recent long travel or recent surgery. Patient states compliant with her Bumex but did not take it this morning. Patient states this morning her O2 saturation on 2 L or 79%. Related Data Home Medications Medication Instructions Recorded Confirmed acetaminophen 325 mg tablet 650 mg PO Q6H PRN Pain 09/10/21 08/17/22 amlodipine 10 mg tablet 10 mg PO BEDTIME 08/17/22 08/17/22 cyanocobalamin (vitamin B-12) 1,000 mcg PO BEDTIME 08/17/22 08/17/22 1,000 mcg tablet (Vitamin B-12) multivitamin with folic acid 400 1 tab PO BEDTIME 08/17/22 08/17/22 mcg tablet hydralazine 50 mg tablet 50 mg PO TID 12/24/22 Previous Rx's Medication Instructions Recorded ferrous sulfate 325 mg (65 mg 325 mg PO TID 30 days #90 tabs 08/13/22 iron) tablet (FeroSul) adult diapers #240 ea 08/31/22 disposable gloves #200 ea 08/31/22 personal wipes #300 ea 08/31/22 atorvastatin 40 mg tablet 40 mg PO BEDTIME #90 tabs 11/28/22 bumetanide 2 mg tablet 2 mg PO DAILY 90 days #90 tabs 11/28/22 pregabalin 25 mg capsule 25 mg PO BEDTIME 30 days #30 caps 11/28/22 isosorbide mononitrate 60 mg 60 mg PO DAILY #60 tabs 12/10/22 tablet,extended release 24 hr Allergies Allergy/AdvReac Type Severity Reaction Status Date / Time Iodinated Contrast Media Allergy Unknown UNKNOWN Verified 08/13/22 16:05 [IODINATED CONTRAST MEDIA] Review of Systems Review of Systems: Shortness of breath. Yes all other systems are reviewed and are negative [facility] Past Medical History Medical History Abscess of forearm, right Acute on chronic diastolic heart failure Acute respiratory failure with hypoxia Anemia B12 deficiency Chronic renal insufficiency CKD (chronic kidney disease) Congestive heart failure Diabetes Femoral artery stenosis Gram-positive bacteremia High cholesterol Hypertension Hypoxia Lower extremity edema Psoriasis of scalp PVD (peripheral vascular disease) Surgical History History of female sterilization History of shoulder surgery Family History Family History Father No problems noted. Mother No problems noted. Social History Social History Household Members: Family Household Members Other:: Daughter Housing: House Do you presently have visiting nurse or other home services: Yes Alcohol intake: former Patient Tobacco Use Status: Never used Tobacco Smoked in Last 30 Days: No e-Cigarette/Vaping Use: Never Used Second Hand Smoke Exposure: No Use of substances other than those prescribed or required for medical reasons: No Any prior treatment program specific to substance use: No Advance Directives: Yes Advance Directives on File: Yes Advance Directives Date on File: 04/18/21 service: No Current occupational status: retired and disabled Cognitive needs: Yes Hearing needs: No Vision needs: No Physical Exam ED Vital Signs: Vital Signs - 24 hr 12/24/22 06:55 12/24/22 07:15 12/24/22 09:04 Temperature 97.7 F 98.1 F Pulse Rate 90 93 88 Respiratory Rate 16 24 H 22 H Blood Pressure 144/49 H 157/65 H 152/53 H Pulse Oximetry 86 L 95 91 L Oxygen Delivery Method Nasal Cannula Oxymask Nasal Cannula Oxygen Flow Rate 6 4 12/24/22 09:29 12/24/22 09:42 12/24/22 10:28 Temperature Pulse Rate 85 76 Respiratory Rate 23 H 19 22 H Blood Pressure 165/67 H 145/65 H Pulse Oximetry 95 96 Oxygen Delivery Method CPAP Nasal Cannula Oxygen Flow Rate 4 12/24/22 10:36 12/24/22 12:33 12/24/22 14:55 Temperature Pulse Rate 78 76 Respiratory Rate 20 26 H Blood Pressure 153/67 H 151/71 H Pulse Oximetry Oxygen Delivery Method Oxymask Oxygen Flow Rate 4 12/24/22 16:10 12/24/22 16:25 Temperature Pulse Rate 77 Respiratory Rate 19 16 Blood Pressure 168/69 H Pulse Oximetry 98 Oxygen Delivery Method CPAP Oxygen Flow Rate BMI result Body Mass Index 35.4 Const General: cooperative, healthy appearing, comfortable, no acute distress, well developed, alert, awake and Physically active Orientation/consciousness: oriented to person, oriented to place, oriented to time and patient oriented x3 [facility] Head: Yes normal to inspection, Yes No palpable skull fracture present, Yes normocephalic, Yes atraumatic and No abrasion Eyes General: appearance normal, both eyes and all related structures Neck Neck: Yes normal visual inspection, Yes full ROM, Yes no lymphadenopathy, Yes no meningeal signs, Yes trachea midline, Yes supple, No anterior neck swelling and No tender Chest Chest palpation & inspection: normal inspection of the chest and normal palpation of entire chest wall Resp Effort & Inspection: able to speak in complete sentences Auscultation: crackles bilateral Cardio Jugular venous distension: no JVD Heart sounds: S1 normal heart sound present and S2 normal heart sound present GI Inspection: Yes normal to inspection and No abdominal wall ecchymosis Palpation (GI): Soft to palpation, not firm, nontender, no guarding and not rigid General: No CVA tenderness and Yes no CVA tenderness Back/Spine/Pelvis Back: no CVA tenderness, No CVA tenderness and No back tenderness Skin General skin exam: no rashes or lesions noted and elasticity normal Neuro Other: Patient is bedbound General: oriented to person, oriented to place, oriented to time, patient oriented x3, tone normal, moves all extremities, Normal light touch and pain sensation, no meningeal signs, no focal motor deficits and CN's II-XI intact bilaterally Extrem Other: Bilateral lower extremity pitting edema General: Yes normal to inspection and Yes full ROM Psych Appearance: grossly normal, well kempt and not disheveled Course Course Course Narrative: 82-year-old female with shortness of breath history of right-sided heart failure. Patient on 6 L O2 saturation 95%. Will order Bumex 2mg stata. Cardiac workup ordered such as troponin EKG and BMP. Chest x-ray ordered. Is no improvement will order another Bumex or renal control Lasix dose. Patient blood pressure normal/acceptable for now. If blood pressure increases of patient continues to have shortness of breath may put on BiPAP. Reevaluation(s) Reevaluation #1: BNP over 1088 and troponin 900.2. now 3 liters 02 saturation is 90%. will placed on CPAP. Patient using accessory muscles. Patient has pmh of anemia in the past. Patient has B12 folate deficiency. Rectal exam brown stool. Negative occult stool. BNP 1088. Troponin over 900. Case discussed with explosive ordnance disposal manager Dr. Deal in the ED who also reviewed patient's EKG and made aware of physical exam, labs, and diagnostics. He does not believe its ACS. Agrees with patient received bumex and lasix and going on CPAP. He states his patient does not improve recommend Bumex drip and then at that do not work recommend matalazone Time: 10:09 Reevaluation #2: Patient now 2 L 93 94%. Patient taking of CPAP. Second troponin pending. Patient drank coffee. Case presented to hospitalist. Time: 13:45 Reevaluation #3: Patient decompensated to 87% ib 2 liters and troponins increased to 1200. Patient placed back on CPAP and give another round of Lasix 40. Case was discussed with Financial Operations Consultant and he was informed of patient's history, physical exam, diagnostics, and new changes in physical exam and troponin. Repeat EKG was done he was shown pictures of it. Recommends patient being placed on heparin. Time: 15:40 Additional Reevaluation(s): Patient admitted to hospitalist after speaking with Dr. Toussaint ICU states patient can go to the floor with CPAP Medications Administered Generic Name Dose Route Start Last Admin Trade Name Freq PRN Reason Stop Dose Admin Heparin Sodium/Sodium Chloride 25,000 unit in 250 mls @ 0 mls/hr 12/24/22 15:45 12/24/22 16:10 Heparin Sodium,Porcine/1/2ns IVCONT 9.76 units/kg/hr .Q0M PALOMO 10 mls/hr Administration Protocol Per Protocol Discontinued Medications Generic Name Dose Route Start Last Admin Trade Name Freq PRN Reason Stop Dose Admin Bumetanide 2 mg 12/24/22 07:28 12/24/22 07:40 Bumetanide 1 Mg/4 Ml Vial IVPUSH 12/24/22 07:29 2 mg ONCE ONE Administration Protocol Furosemide 40 mg 12/24/22 08:34 12/24/22 09:07 Furosemide 40 Mg/4 Ml Vial IVPUSH 12/24/22 08:35 40 mg STAT STA Administration Protocol Furosemide 40 mg 12/24/22 14:47 12/24/22 16:01 Furosemide 40 Mg/4 Ml Vial IVPUSH 12/24/22 14:48 40 mg STAT STA Administration Protocol Heparin Sodium (Porcine) 4,000 unit 12/24/22 15:31 12/24/22 16:06 Heparin Sodium,Porcine 5,000 Unit/Ml Vial IVPUSH 12/24/22 15:32 4,000 unit ONCE ONE Administration Nitroglycerin 0.5 inch 12/24/22 10:01 12/24/22 10:36 Nitroglycerin 2 % Oint 1 Gm Packet TRANSDERMA 12/24/22 10:02 0.5 inch ONCE ONE Administration Medical Decision Making Medical Decision Making [facility] Narrative: 82-year-old female presents to ED for shortness of breath for 2 days, leg swelling, and shortness of breath on exertion. Patient's history of right-sided heart failure. Patient baseline 2 L oxygen daily. Patient had to be placed on CPAP. Patient placed on CPAP for CHF exacerbation. Case discussed with hospitalist to start heparin due to elevation of troponin. Differential Diagnosis Differential Diagnoses: The differential diagnosis associated with the presentation includes (Congestive heart failure, myocardial infarction, PE,) Admission/Observation Consideration of admission/observation: Escalation of care including admission/observation considered Consult Healthcare Provider Management of the patient was discussed with: Hospitalist (Dr. Esparza) and Water Purification Chemist (Dr. Deal, Financial Operations Consultant recommend have IV heparin due to patient having increase in troponin. Spoke with Dr. Toussaint of ICU who states patient can be admitted to floor with CPAP. ) Lab Data [facility] Lab Attestation statement: I reviewed the patient's lab results. 12/24/22 08:23 12/24/22 08:23 Labs: Lab Results 12/24/22 12/24/22 12/24/22 Range/Units 07:46 08:23 08:23 WBC 12.9 H (4.8-10.8) X10*3/uL RBC 2.59 L (4.20-5.50) X10*6/uL Hgb 7.6 L (12.0-16.0) g/dl Hct 24.2 L (37.0-47.0) % MCV 93.4 (80.0-98.0) fL MCH 29.3 (27.0-33.0) pg MCHC 31.4 (31.0-35.0) g/dl RDW 14.5 (11.0-16.0) % Plt Count 248 (160-400) X10*3/uL MPV 11.0 (9.4-12.3) fL Absolute Nucleated RBC 0.000 (0.0-0.012) X10*3/uL Nucleated RBC % (auto) 0.0 (0.0-0.2) /100WBC PT (10.0-13.1) SEC INR (0.9-1.1) APTT (26.0-36.4) SEC Sodium 140 (135-145) mmol/L Potassium 4.4 (3.3-5.1) mmol/L Chloride 101 (96-108) mmol/L Carbon Dioxide 25 (22-29) mmol/L Anion Gap 18 (12-20) BUN 81 H (9-16) mg/dL Creatinine 3.46 H (0.5-1.4) mg/dL Estim Creat Clear Calc 15.3 Estimated GFR 13 Random Glucose 150 H (60-115) mg/dL Lactic Acid (0.5-2.0) mmol/L Calcium 9.6 D (8.4-10.2) mg/dL Magnesium 2.3 (1.6-2.6) mg/dL Troponin I High Sens (<3.5-17.0) ng/L B-Natriuretic Peptide (<100) pg/mL Urine Color Urine Appearance Urine pH (5.0-9.0) Ur Specific [place] (1.005-1.025) Urine Protein (Neg-Trace) mg/dL Urine Glucose (UA) (Negative) mg/dL Urine Ketones (Negative) mg/dL Urine Blood (Negative) Urine Nitrite (Negative) Ur Leukocyte Esterase (Negative) Urine RBC (0-2) /HPF Urine WBC (0-5) /HPF Ur Squamous Epith Cells (0-2) /HPF Urine Bacteria (None Seen) Hyaline Casts (0-2) /LPF Stool Occult Blood (NEGATIVE) Influenza Type A (PCR) NEGATIVE (Negative) Influenza Type B (PCR) NEGATIVE (Negative) RSV RNA Qual (PCR) NEGATIVE (Negative) SARS-CoV-2 RNA (RT-PCR) NEGATIVE (Negative) 12/24/22 12/24/22 12/24/22 Range/Units 08:23 08:23 08:23 WBC (4.8-10.8) X10*3/uL RBC (4.20-5.50) X10*6/uL Hgb (12.0-16.0) g/dl Hct (37.0-47.0) % MCV (80.0-98.0) fL MCH (27.0-33.0) pg MCHC (31.0-35.0) g/dl RDW (11.0-16.0) % Plt Count (160-400) X10*3/uL MPV (9.4-12.3) fL Absolute Nucleated RBC (0.0-0.012) X10*3/uL Nucleated RBC % (auto) (0.0-0.2) /100WBC PT 10.5 (10.0-13.1) SEC INR 0.9 (0.9-1.1) APTT 25.3 L (26.0-36.4) SEC Sodium (135-145) mmol/L Potassium (3.3-5.1) mmol/L Chloride (96-108) mmol/L Carbon Dioxide (22-29) mmol/L Anion Gap (12-20) BUN (9-16) mg/dL Creatinine (0.5-1.4) mg/dL Estim Creat Clear Calc Estimated GFR Random Glucose (60-115) mg/dL Lactic Acid (0.5-2.0) mmol/L Calcium (8.4-10.2) mg/dL Magnesium (1.6-2.6) mg/dL Troponin I High Sens 900.2 H* (<3.5-17.0) ng/L B-Natriuretic Peptide 1088 H (<100) pg/mL Urine Color Urine Appearance Urine pH (5.0-9.0) Ur Specific [place] (1.005-1.025) Urine Protein (Neg-Trace) mg/dL Urine Glucose (UA) (Negative) mg/dL Urine Ketones (Negative) mg/dL Urine Blood (Negative) Urine Nitrite (Negative) Ur Leukocyte Esterase (Negative) Urine RBC (0-2) /HPF Urine WBC (0-5) /HPF Ur Squamous Epith Cells (0-2) /HPF Urine Bacteria (None Seen) Hyaline Casts (0-2) /LPF Stool Occult Blood (NEGATIVE) Influenza Type A (PCR) (Negative) Influenza Type B (PCR) (Negative) RSV RNA Qual (PCR) (Negative) SARS-CoV-2 RNA (RT-PCR) (Negative) 12/24/22 12/24/22 12/24/22 Range/Units 08:23 09:30 11:01 WBC (4.8-10.8) X10*3/uL RBC (4.20-5.50) X10*6/uL Hgb (12.0-16.0) g/dl Hct (37.0-47.0) % MCV (80.0-98.0) fL MCH (27.0-33.0) pg MCHC (31.0-35.0) g/dl RDW (11.0-16.0) % Plt Count (160-400) X10*3/uL MPV (9.4-12.3) fL Absolute Nucleated RBC (0.0-0.012) X10*3/uL Nucleated RBC % (auto) (0.0-0.2) /100WBC PT (10.0-13.1) SEC INR (0.9-1.1) APTT (26.0-36.4) SEC Sodium (135-145) mmol/L Potassium (3.3-5.1) mmol/L Chloride (96-108) mmol/L Carbon Dioxide (22-29) mmol/L Anion Gap (12-20) BUN (9-16) mg/dL Creatinine (0.5-1.4) mg/dL Estim Creat Clear Calc Estimated GFR Random Glucose (60-115) mg/dL Lactic Acid 0.9 (0.5-2.0) mmol/L Calcium (8.4-10.2) mg/dL Magnesium (1.6-2.6) mg/dL Troponin I High Sens (<3.5-17.0) ng/L B-Natriuretic Peptide (<100) pg/mL Urine Color Yellow Urine Appearance Clear Urine pH 6.5 (5.0-9.0) Ur Specific [place] 1.010 (1.005-1.025) Urine Protein 300 (3+) H (Neg-Trace) mg/dL Urine Glucose (UA) Negative (Negative) mg/dL Urine Ketones Negative (Negative) mg/dL Urine Blood Negative (Negative) Urine Nitrite Negative (Negative) Ur Leukocyte Esterase Trace H (Negative) Urine RBC 0-2 (0-2) /HPF Urine WBC 6-10 H (0-5) /HPF Ur Squamous Epith Cells 0-2 (0-2) /HPF Urine Bacteria None Seen (None Seen) Hyaline Casts 0-2 (0-2) /LPF Stool Occult Blood NEGATIVE (NEGATIVE) Influenza Type A (PCR) (Negative) Influenza Type B (PCR) (Negative) RSV RNA Qual (PCR) (Negative) SARS-CoV-2 RNA (RT-PCR) (Negative) 12/24/22 Range/Units 13:51 WBC (4.8-10.8) X10*3/uL RBC (4.20-5.50) X10*6/uL Hgb (12.0-16.0) g/dl Hct (37.0-47.0) % MCV (80.0-98.0) fL MCH (27.0-33.0) pg MCHC (31.0-35.0) g/dl RDW (11.0-16.0) % Plt Count (160-400) X10*3/uL MPV (9.4-12.3) fL Absolute Nucleated RBC (0.0-0.012) X10*3/uL Nucleated RBC % (auto) (0.0-0.2) /100WBC PT (10.0-13.1) SEC INR (0.9-1.1) APTT (26.0-36.4) SEC Sodium (135-145) mmol/L Potassium (3.3-5.1) mmol/L Chloride (96-108) mmol/L Carbon Dioxide (22-29) mmol/L Anion Gap (12-20) BUN (9-16) mg/dL Creatinine (0.5-1.4) mg/dL Estim Creat Clear Calc Estimated GFR Random Glucose (60-115) mg/dL Lactic Acid (0.5-2.0) mmol/L Calcium (8.4-10.2) mg/dL Magnesium (1.6-2.6) mg/dL Troponin I High Sens 1274.1 H* (<3.5-17.0) ng/L B-Natriuretic Peptide (<100) pg/mL Urine Color Urine Appearance Urine pH (5.0-9.0) Ur Specific [place] (1.005-1.025) Urine Protein (Neg-Trace) mg/dL Urine Glucose (UA) (Negative) mg/dL Urine Ketones (Negative) mg/dL Urine Blood (Negative) Urine Nitrite (Negative) Ur Leukocyte Esterase (Negative) Urine RBC (0-2) /HPF Urine WBC (0-5) /HPF Ur Squamous Epith Cells (0-2) /HPF Urine Bacteria (None Seen) Hyaline Casts (0-2) /LPF Stool Occult Blood (NEGATIVE) Influenza Type A (PCR) (Negative) Influenza Type B (PCR) (Negative) RSV RNA Qual (PCR) (Negative) SARS-CoV-2 RNA (RT-PCR) (Negative) Independent Interpretation I performed an independent interpretation of an: EKG (EK2; normal sinus rhythm. Ventricular rate 88. Pr interval 150. QRS 112. QTC 459) and Plain X-Ray Interpretation: EKG: Normal sinus rhythm. Ventricular rate 92. Pr interval 150. QRS 116. QTC 469. Negative STEMI Radiology Impression Discussion of test interpretation with radiology: I have reviewed the radiologist's reading. Critical Care Time Critical Care Time Critical Care Time: Yes Total Critical Care Time: 60 Attestation: Patient given Lasix and Bumex. Patient placed on CPAP. Nitropaste placed. Discussed with Cardiology to start heparin due to elevation of troponin. Discharge Plan Discharge Patient Disposition: Admitted As Inpatient
[2022-12-24] MEDS: Bumetanide 1 MG/4 ML VIAL 2 MG IVPUSH (07:40)
[2022-12-24 08:31] LABS: Influenza A PCR NEGATIVE (Negative); Influenza B PCR NEGATIVE (Negative); Resp Syncy Virus RNA Qual PCR NEGATIVE (Negative); SARS COV2 PCR INHOUSE NEGATIVE (Negative)
[2022-12-24 08:38] LABS: Hematocrit 24.2 % (37.0-47.0); Hemoglobin 7.6 g/dl (12.0-16.0); Mean Corpuscular HGB Conc 31.4 g/dl (31.0-35.0); Mean Corpuscular Hemoglobin 29.3 pg (27.0-33.0); Mean Corpuscular Volume 93.4 fL (80.0-98.0); Platelet Count 248 X10*3/uL (160-400); Red Blood Count 2.59 X10*6/uL (4.20-5.50); Red Cell Distribution Width 14.5 % (11.0-16.0); White Blood Count 12.9 X10*3/uL (4.8-10.8)
[2022-12-24 08:42] LABS: INTERNATIONAL NORM RATIO 0.9 (0.9-1.1); Prothrombin Time 10.5 SEC (10.0-13.1)
--- NOTE | 2022-12-24 08:42 | MHC.EDTECH ---
put patient on bedpan, unable to void. placed a purewick.
[2022-12-24 08:45] LABS: Partial Thromboplastin Time 25.3 SEC (26.0-36.4)
[2022-12-24 08:50] LABS: Lactic Acid 0.9 mmol/L (0.5-2.0)
[2022-12-24 08:56] LABS: Anion Gap 18 (12-20); Blood Urea Nitrogen 81 mg/dL (9-16); Calcium 9.6 mg/dL (8.4-10.2); Carbon Dioxide 25 mmol/L (22-29); Chloride 101 mmol/L (96-108); Creatinine Clr Calc Pharmacy 15.3; Estimated Glomerular Filt Rate 13; Glucose Random 150 mg/dL (60-115); Magnesium 2.3 mg/dL (1.6-2.6); Potassium 4.4 mmol/L (3.3-5.1); Sodium 140 mmol/L (135-145)
[2022-12-24 09:02] LABS: B Type Natriuretic Peptide 1088 pg/mL (<100)
[2022-12-24] MEDS: Furosemide 40 MG/4 ML VIAL IVPUSH ×3 (09:07→23:09)
--- NOTE | 2022-12-24 09:13 | PC.NURSE ---
no voiding, IV lasiks given per order, work of breathing with improvement sating 92% on 4 liters with oxymask.
[2022-12-24 09:14] LABS: Troponin-I High Sensitivity 900.2 ng/L (<3.5-17.0)
[2022-12-24 09:37] LABS: OBS Int Ctl Valid YES; OBS1 NEGATIVE (NEGATIVE)
--- NOTE | 2022-12-24 09:47 | PC.NURSE ---
placed on CPAP 8/40%, work of breathing improved.
[2022-12-24] MEDS: Nitroglycerin 2 % Oint 1 GM Packet 0.5 INCH TRANSDERMA (10:36)
--- NOTE | 2022-12-24 10:54 | PC.NURSE ---
No output after medications, bladder scanned for 522mls, [id number] cath placed, 1/2 inch nitro paste placed on left upper chest.
[2022-12-24 11:07] LABS: Appearance Urine Clear; Color Urine Yellow; Glucose Urine UA Negative (Negative); Leukocyte Esterase Urine Trace (Negative); Nitrite Urine Negative (Negative); PH 6.5 (5.0-9.0); UMIC TRIGGER UACC YES; Urine Blood Negative (Negative); Urine Ketones Negative (Negative); Urine Protein 300 (3+) mg/dL (Neg-Trace)
[2022-12-24 11:11] LABS: Bacteria Urine None Seen (None Seen); Hyaline Casts Urine 0-2 /LPF (0-2); RBC Urine 0-2 /HPF (0-2); Squamous Epithelial Cell Urine 0-2 /HPF (0-2); UACC Culture Trigger YES
--- NOTE | 2022-12-24 12:35 | PC.NURSE ---
CPAP removed and placed on oxymask at 4liters. 350mls empties fro ch cath. Patient alert and requesting coffee.
[2022-12-24 14:41] LABS: Troponin-I High Sensitivity 1274.1 ng/L (<3.5-17.0)
--- NOTE | 2022-12-24 14:44 | ECG_ITS ---
Test Reason : ELEVATED TRPONIN Blood Pressure : / mmHG Vent. Rate : 088 BPM Atrial Rate : 088 BPM P-R Int : 150 ms QRS Dur : 112 ms QT Int : 380 ms P-R-T Axes : 053 -23 103 degrees QTc Int : 459 ms Normal sinus rhythm Minimal voltage criteria for LVH, may be normal variant ( Carlitos product ) ST & T wave abnormality, consider lateral ischemia Abnormal ECG When compared with ECG of 24-DEC-2022 07:22, No significant change was found Referred By: Sina Borrero Electronically Signed By:RAÚL BLUE MD
[2022-12-24] MEDS: Heparin Sodium,Porcine 5,000 UNIT/ML VIAL 4000 UNIT IVPUSH (16:06)
[2022-12-24] MEDS: Heparin Sodium,Porcine/1/2NS 25,000 UNIT/250 ML IV.SOLN 10 UNIT IVCONT (16:10)
--- NOTE | 2022-12-24 16:23 | PC.NURSE ---
Addendum entered by Sirisha Kimble 12/24/22 18:44: CPAP replaced on previous settings, pt with increased work of breathing Original Note: Out put from ch 250mls. Heparin drip started
--- NOTE | 2022-12-24 16:24 | PM.IMHP ---
History of Present Illness Date of Service: 12/24/22 Chief Complaint: sob 82F PMH chronic hypoxic respiratory failure on 2L home o2, chronic diastolic chf, CKD IV, obesity, HTN, HLD, preDM, presented with shortness of breath. patient states sob worsening over past 2 days, worse on minimal exertion. acute on chronic lower extremity edema. orthopnea. denies chest pain, fever, chills. reports compliance with meds, no obvious triggering events. in ED noted to be hypoxic, placed on cpap and given diuretics with significnat improvement, elevated troponin and bnp, started on iv heparin. Review of Systems Review of Systems: Yes all other systems are reviewed and are negative [facility] Medical History Abscess of forearm, right Acute on chronic diastolic heart failure Acute respiratory failure with hypoxia Anemia B12 deficiency Chronic renal insufficiency CKD (chronic kidney disease) Congestive heart failure Diabetes Femoral artery stenosis Gram-positive bacteremia High cholesterol Hypertension Hypoxia Lower extremity edema Psoriasis of scalp PVD (peripheral vascular disease) Family History Father No problems noted. Mother No problems noted. Surgical History History of female sterilization History of shoulder surgery Social History Household Members: Family Household Members Other:: Daughter Housing: House Do you presently have visiting nurse or other home services: Yes Alcohol intake: former Patient Tobacco Use Status: Never used Tobacco Smoked in Last 30 Days: No e-Cigarette/Vaping Use: Never Used Second Hand Smoke Exposure: No Use of substances other than those prescribed or required for medical reasons: No Any prior treatment program specific to substance use: No Advance Directives: Yes Advance Directives on File: Yes Advance Directives Date on File: 04/18/21 service: No Current occupational status: retired and disabled Cognitive needs: Yes Hearing needs: No Vision needs: No Meds Allergies Allergy/AdvReac Type Severity Reaction Status Date / Time Iodinated Contrast Media Allergy Unknown UNKNOWN Verified 08/13/22 16:05 [IODINATED CONTRAST MEDIA] Active Medications: Current Medications Bumetanide (Bumetanide 1 Mg/4 Ml Vial) 1 mg IVPUSH BID@0900,1700 [place]; Protocol Heparin Sodium (Porcine) (Heparin Sodium,Porcine 5,000 Unit/Ml Vial) 4,100 unit 40 unit/kg (4100 unit) IVPUSH PROTOCOL BOLUS PRN; Protocol PRN Reason: 40 unit/kg - Heparin Protocol Heparin Sodium (Porcine) (Heparin Sodium,Porcine 5,000 Unit/Ml Vial) 8,200 unit IVPUSH PROTOCOL BOLUS PRN; Protocol PRN Reason: 80 unit/kg - Heparin Protocol Heparin Sodium/Sodium Chloride (Heparin Sodium,Porcine/1/2ns) 25,000 unit in 250 mls @ 0 mls/hr IVCONT .Q0M [facility]; Protocol Last Admin: 12/24/22 16:10 Dose: 9.76 units/kg/hr, 10 mls/hr Pharmacy Consult (Consult Rx Perform Med Rec) 1 each MISCELLANE ONCE PRN PRN Reason: Consult order Home Medications Medication Instructions Recorded Confirmed Last Taken Type acetaminophen 325 mg tablet 650 mg PO Q6H PRN Pain 09/10/21 08/17/22 Unknown History amlodipine 10 mg tablet 10 mg PO BEDTIME 08/17/22 08/17/22 08/16/22 History cyanocobalamin (vitamin B-12) 1,000 mcg PO BEDTIME 08/17/22 08/17/22 08/16/22 History 1,000 mcg tablet (Vitamin B-12) multivitamin with folic acid 400 1 tab PO BEDTIME 08/17/22 08/17/22 08/16/22 History mcg tablet hydralazine 50 mg tablet 50 mg PO TID 12/24/22 Unknown History Physical Exam Vital Signs and Narrative: Vital Signs: Last Vital Signs Temp 98.1 F 12/24/22 07:15 Pulse 76 12/24/22 12:33 Resp 19 12/24/22 16:10 BP 151/71 H 12/24/22 12:33 Pulse Ox 96 12/24/22 10:28 O2 Del Method Oxymask 12/24/22 12:33 O2 Flow Rate 4 12/24/22 12:33 Oxygen Flow Rate 6 12/24/22 06:55 BMI result Body Mass Index 35.4 General: lethargic O X 3, in acute distress Resp: Crackles bilateral, accessory muscles used CVS: S1,S2,RRR, 4+ bilateral edema GI: soft, non tender, non distended Results Labs 12/24/22 08:23 12/24/22 08:23 Labs: Laboratory Results - last 24 hr 12/24/22 12/24/22 12/24/22 07:46 08:23 08:23 MCV 93.4 MCH 29.3 MCHC 31.4 RDW 14.5 Plt Count 248 MPV 11.0 Absolute Nucleated RBC 0.000 Nucleated RBC % (auto) 0.0 PT INR APTT Anion Gap 18 Estim Creat Clear Calc 15.3 Estimated GFR 13 Random Glucose 150 H Lactic Acid Calcium 9.6 D Magnesium 2.3 Troponin I High Sens B-Natriuretic Peptide Urine Color Urine Appearance Urine pH Ur Specific [place] Urine Protein Urine Glucose (UA) Urine Ketones Urine Blood Urine Nitrite Ur Leukocyte Esterase Urine RBC Urine WBC Ur Squamous Epith Cells Urine Bacteria Hyaline Casts Stool Occult Blood Influenza Type A (PCR) NEGATIVE Influenza Type B (PCR) NEGATIVE RSV RNA Qual (PCR) NEGATIVE SARS-CoV-2 RNA (RT-PCR) NEGATIVE 12/24/22 12/24/22 12/24/22 08:23 08:23 08:23 MCV MCH MCHC RDW Plt Count MPV Absolute Nucleated RBC Nucleated RBC % (auto) PT 10.5 INR 0.9 APTT 25.3 L Anion Gap Estim Creat Clear Calc Estimated GFR Random Glucose Lactic Acid Calcium Magnesium Troponin I High Sens 900.2 H* B-Natriuretic Peptide 1088 H Urine Color Urine Appearance Urine pH Ur Specific [place] Urine Protein Urine Glucose (UA) Urine Ketones Urine Blood Urine Nitrite Ur Leukocyte Esterase Urine RBC Urine WBC Ur Squamous Epith Cells Urine Bacteria Hyaline Casts Stool Occult Blood Influenza Type A (PCR) Influenza Type B (PCR) RSV RNA Qual (PCR) SARS-CoV-2 RNA (RT-PCR) 12/24/22 12/24/22 12/24/22 08:23 09:30 11:01 MCV MCH MCHC RDW Plt Count MPV Absolute Nucleated RBC Nucleated RBC % (auto) PT INR APTT Anion Gap Estim Creat Clear Calc Estimated GFR Random Glucose Lactic Acid 0.9 Calcium Magnesium Troponin I High Sens B-Natriuretic Peptide Urine Color Yellow Urine Appearance Clear Urine pH 6.5 Ur Specific [place] 1.010 Urine Protein 300 (3+) H Urine Glucose (UA) Negative Urine Ketones Negative Urine Blood Negative Urine Nitrite Negative Ur Leukocyte Esterase Trace H Urine RBC 0-2 Urine WBC 6-10 H Ur Squamous Epith Cells 0-2 Urine Bacteria None Seen Hyaline Casts 0-2 Stool Occult Blood NEGATIVE Influenza Type A (PCR) Influenza Type B (PCR) RSV RNA Qual (PCR) SARS-CoV-2 RNA (RT-PCR) 12/24/22 13:51 MCV MCH MCHC RDW Plt Count MPV Absolute Nucleated RBC Nucleated RBC % (auto) PT INR APTT Anion Gap Estim Creat Clear Calc Estimated GFR Random Glucose Lactic Acid Calcium Magnesium Troponin I High Sens 1274.1 H* B-Natriuretic Peptide Urine Color Urine Appearance Urine pH Ur Specific [place] Urine Protein Urine Glucose (UA) Urine Ketones Urine Blood Urine Nitrite Ur Leukocyte Esterase Urine RBC Urine WBC Ur Squamous Epith Cells Urine Bacteria Hyaline Casts Stool Occult Blood Influenza Type A (PCR) Influenza Type B (PCR) RSV RNA Qual (PCR) SARS-CoV-2 RNA (RT-PCR) Imaging Radiologist's Impressions: Impressions Chest X-Ray 12/24/22 08:38 IMPRESSION: Mild CHF represents interval worsening from the previous study. Assessment and Plan (1) CKD (chronic kidney disease): Qualifiers: Chronic kidney disease stage: stage 4 (severe) Qualified Code(s): N18.4 - Chronic kidney disease, stage 4 (severe) Status: Acute Plan 82F PMH chronic hypoxic respiratory failure on 2L home o2, chronic diastolic chf, CKD IV, obesity, HTN, HLD, preDM, presented with shortness of breath acute on chronic hypoxic respiratory failure due to acute on chronic diastolic chf iv bumex, cpap (okay for med tele per icu) cardio eval montior lytes, is and os NSTEMI iv heparin cardio eval NAHID on cKD IV suspect cardiorenal, monitor while diuresing obesity weight loss recomended chronic anemia monitor htn amlodipine hld statin dvt prophylaxis - on iv heparin full code patient with significantly overload needing iv diuresis, therefore, expected to require atleast 2 midnights inpatient. Time Spent With Patient Time: Total time managing care of this patient today ____ minutes. Quality Stroke Does the patient have a stroke diagnosis?: No VTE Prior VTE?: No VTE Risk Level:: Medical - moderate - high VTE Device Contraindication: Treatment Not Indicated VTE Drug Contraindication: N/A - Med Ordered
--- NOTE | 2022-12-24 17:04 | PHA.MEDREC ---
Pharmacy Consult ? Medication Reconciliation Pharmacy has completed the medication reconciliation. Spoke with patient's daughter. Was able to recognize most of the medication names, unsure about amlodipine. Dinora Bustamante, RosauraD
[2022-12-24] MEDS: Bumetanide 1 MG/4 ML VIAL IVPUSH (18:43)
--- NOTE | 2022-12-24 18:45 | PC.NURSE ---
CPAP removed and placed on oxymask 4lpm in attempt to trial off, okay per Krysta. Medicating as charted with Bumex. Additional output 250ml
--- NOTE | 2022-12-24 20:16 | PC.NURSE ---
Pt on 4L changed from oxy mask to nc 4L. Resp in to assess pt. No signs of distress. Pt requesting to eat, dinner warmed and pt will be fed. Carlie care completed and complete bed change done. Will continue to assess.
--- NOTE | 2022-12-24 20:26 | PC.NURSE ---
Vera in place, urine clear. hep drip running at 10ml an hr. Pt tolerating dinner well. Pt was incontinent of a small amount of stool. Will continue to monitor.
[2022-12-24] MEDS: Pregabalin 25 MG CAPSULE PO (20:35)
[2022-12-24] MEDS: amLODIPine Besylate 10 MG TABLET PO (20:35)
[2022-12-24] MEDS: hydrALAZINE HCl 50 MG TABLET PO (20:35)
[2022-12-24] MEDS: Ferrous Sulfate 324 MG TABLET.DR PO (20:35)
[2022-12-24] MEDS: Atorvastatin Calcium 40 MG TABLET PO (20:35)
[2022-12-24] MEDS: Cyanocobalamin (Vitamin B-12) 1,000 MCG TABLET 1000 MCG PO (20:36)
[2022-12-24] MEDS: Multivitamin TABLET 1 TAB PO (20:40)
--- NOTE | 2022-12-24 21:30 | PC.NURSE ---
Pt assessed by Resp. Placed from cpap on bypap 6L.
--- NOTE | 2022-12-24 21:35 | PC.NURSE ---
pt reporting sob, respiratory called, respiratory into assess pt, pt placed on bipap. Will continue to monitor.
--- NOTE | 2022-12-24 21:47 | PC.NURSE ---
Dr. Durant notified of pt respiratory distress, per provider will keep pt on bipap for an hour and will re-assess with respiratory.
[2022-12-24 22:30] LABS: VBG Base Excess 6.2 mmol/L; VBG HCO3 29 mmol/L (22-26); VBG pCO2 39 mmHg; VBG pH 7.48 (7.32-7.43); VBG pO2 94 mmHg
[2022-12-24 22:32] LABS: Venous Blood Gas Refer to POC result
[2022-12-24 22:39] LABS: PTT Heparin Drip 93.6 SEC (53-77.9)
--- NOTE | 2022-12-24 23:17 | PC.NURSE ---
medicated per mar, will continue monitor urine out put, 350cc of clear yellow urine. Will continue to monitor
--- NOTE | 2022-12-24 23:26 | PC.NURSE ---
heparin on hold per protocol, charge nurse Laine verified, no sign of bleeding, Will continue to monitor.
[2022-12-25] VITALS (21 sets, daily range): BP systolic 111–163; BP diastolic 44–70; PULSE 61–98; RESP 14–66; TEMP 36.2–37.1; O2SAT 90–98; BMI 35.4
[2022-12-25] MEDS: 0.9 % Sodium Chloride Flush 3 ML SYRINGE IVFLUSH ×3 (00:17→16:50)
--- NOTE | 2022-12-25 00:55 | PC.NURSE ---
Heparin drip restarted and decreased by protocol, co-signed by Charge nurse Laine
--- NOTE | 2022-12-25 04:10 | PC.NURSE ---
Attempt to call report, RN unavailable at this time, will call back
[2022-12-25 04:53] LABS: Hematocrit 21.5 % (37.0-47.0); Mean Corpuscular HGB Conc 31.6 g/dl (31.0-35.0); Mean Corpuscular Hemoglobin 29.3 pg (27.0-33.0); Mean Corpuscular Volume 92.7 fL (80.0-98.0); Mean Platelet Volume 10.7 fL (9.4-12.3); Platelet Count 202 X10*3/uL (160-400); Red Blood Count 2.32 X10*6/uL (4.20-5.50); Red Cell Distribution Width 14.5 % (11.0-16.0); White Blood Count 6.8 X10*3/uL (4.8-10.8)
[2022-12-25 04:57] LABS: Hemoglobin 6.8 g/dl (12.0-16.0)
[2022-12-25 05:03] LABS: Prothrombin Time 11.3 SEC (10.0-13.1)
--- NOTE | 2022-12-25 05:04 | PM.EVENT ---
Event Note Date of Service: 12/25/22 Event Note: Earlier in the night patient did develop respiratory distress, was placed on BiPAP temporarily For work of breathing, that has now improved., now off BiPAP and placed On CPAP. patient was also given Lasix IV CBC this morning shows anemia with hemoglobin less than 7. Will transfuse 1 unit. Stool occult from earlier shows negative results, will obtain haptoglobin Time Spent With Patient Time: Total time managing care of this patient today ____ minutes.
[2022-12-25 05:27] LABS: PTT Heparin Drip 46.1 SEC (53-77.9)
[2022-12-25 05:34] LABS: Anion Gap 14 (12-20); Blood Urea Nitrogen 81 mg/dL (9-16); Calcium 8.9 mg/dL (8.4-10.2); Carbon Dioxide 29 mmol/L (22-29); Chloride 104 mmol/L (96-108); Creatinine Clr Calc Pharmacy 14.7; Estimated Glomerular Filt Rate 12; Glucose Fasting 104 mg/dL (60-99); Magnesium 2.3 mg/dL (1.6-2.6); Potassium 4.5 mmol/L (3.3-5.1); Sodium 142 mmol/L (135-145)
--- NOTE | 2022-12-25 05:38 | PC.NURSE ---
pt transferred to unit, reported of to RN deanna ptt should be pending, called phlebotomy who was added the lab,
[2022-12-25] MEDS: Heparin Sodium,Porcine 5,000 UNIT/ML VIAL 4100 UNIT IVPUSH (05:55)
[2022-12-25] MEDS: Bumetanide 1 MG/4 ML VIAL IVPUSH (10:32)
--- NOTE | 2022-12-25 10:51 | PC.RT ---
pt sats were 82% on 4 liters nasal cannula. Pt RR 34 and increased wob with paradoxical respirations. Placed on 8 liters Oxymask and Sats decreased to 78%. Pt then was placed back on Cpap 8-40% and her sats came up to 90%. RN aware
[2022-12-25 11:53] LABS: Iron 27 mcg/dL (30-160); Percent Iron Saturation 15 % (15-50); Total Iron Binding Capacity 180 mcg/dL (228-428); Unsaturated Iron Binding 153 ug/dL
--- NOTE | 2022-12-25 12:00 | CA_ITS ---
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 Moderate to severe LV systolic dysfunction with grade 2 diastolic dysfunction with regional wall motion abnormality suggestive underlying coronary artery disease 2. Normal RV systolic pressure Findings Procedure Information Contrast agent, definity, is being given per protocol without apparent complications. Left Ventricle Mildly increased left ventricular cavity size. There is normal left ventricular wall thickness. The left ventricular systolic function is moderate to severely decreased. The visually estimated ejection fraction is between 30-35%. Spectral Doppler is indicative of a pseudonormal filling pattern. E/E prime ratio is >15, consistent with elevated filling pressures. Evidence suggests grade II (moderate) diastolic dysfunction. Wall Motion Rest Echo Findings The inferolateral wall, the apex, basal inferior, mid inferior, apical lateral, and apical septum segments are akinetic. All other scored wall segments showed normal motion. Tricuspid Valve The right ventricular systolic pressure is normal. Normal right atrial pressure. There is no evidence of pulmonary hypertension. Prior Study Comparison Significant changes compared to prior study dated: 07/12/2022. LV systolic function is significantly reduced with new wall motion abnormality. Measurements 2D Linear Measurements IVSd: 1.09 0.6-0.9/0.6-1.0 cm LVIDd: 5.95 3.9-5.3/4.2-5.9 cm LVIDd Index: 2.79 2.4-3.2/2.2-3.1 cm/m2 LVIDs: 4.29 2.0-3.6 cm LVPWd: 1.07 0.7-1.1 cm LV Mass: 335.68 67-162/88-224 g LV Mass Index: 157.60 43-95/49-115 g/m2 LVOT Diam: 2.00 3.0+(-)1.3 cm 2D Systolic Function EF 4C: 33.30 >55% EF 2C: 31.30 >55% EF BiP: 33.90 >55% Mitral Valve MV Pk E: 1.41 MV PK A: 1.22 MV Decel Time: 120.00 E/A: 1.20 E'Lateral: 7.51 E'Medial: 6.74 E/E' Med: 20.90 E/E' Lat: 18.80 PHT: 35.00 MVA PHT: 6.29 Decel [place]: 11.83 LVOT LVOT Pk [place]jo: 1.02 LVOT Mn Alejo: 0.69 LVOT VTI: 0.23 LVOT Pk Grad: 4.00 LVOT Mn Grad: 2.00 LVOT Diam: 2.00 LVOT Area: 3.14 Diastolic Function MV Pk E: 1.41 MV Pk A: 1.22 E/A: 1.20 E'Medial: 6.74 E/E' Med: 20.90 E' Laterial: 7.51 E/E' Lat: 18.80 Right Ventricle TAPSE (mm): 26.40 TVS' Alejo: 11.30 Tricuspid Valve TR Pk [place]: 2.31 TR Pk Grad: 21.00 RA Press: 8.00 RVSP: 29.00 Updated in Other Vendor System with Status of Final Noé Deal MD electronically signed on 12/25/2022 3:23:36 PM with status of Final
[2022-12-25 12:41] LABS: PTT Heparin Drip 45.3 SEC (53-77.9)
--- NOTE | 2022-12-25 12:47 | PM.CNCAR ---
History of Present Illness History of Present Illness Date of Service: 12/25/22 Requesting physician: Elisabet Campo Consult reason: congestive heart failure and troponin elevation Chief complaint: CHF, NSTEMI Narrative: I was consulted to see Kay in cardiology consultation today for sudden-onset shortness of breath consistent with pulmonary edema/CHF. Patient is a poor historian despite use of glass bender. History was obtained bedside with the daughter present. Patient usual state of health and present it with sudden-onset shortness of breath as per the daughter yesterday. She was noted to be in pulmonary edema in the ER and was diuresed and subsequently put on CPAP as she remained with respiratory distress. Subsequent troponins were elevated consistent with NSTEMI. EKG shows lateral ST depression. She was started on IV heparin drip. She underlying chronic kidney disease as well as anemia and there is further drop in her hematocrit this morning. There is no obvious signs of bleeding although this is difficult to assess. Patient says her breathing is improved marginally. She complains right-sided pain in the chest which she had even including last hospitalization and is reproducible with pressure suggestive tenderness at this part. She denies any other retrosternal chest pressure precordial chest pressure pain. Denies any palpitation lightheadedness. On admission the blood pressure is slightly elevated. Blood pressure currently is adequately controlled. She is currently on aspirin, amlodipine, atorvastatin, Bumex 1 mg b.i.d., IV heparin drip, hydralazine, isosorbide. Overall she has poor functional status as mostly bed-bound at home. Review of Systems Constitutional: Constitutional: Reports no additional constitutional complaints Eyes: Eyes: Reports no additional eye complaints Cardiovascular: Cardiovascular: Denies chest pain, Denies leg edema, Denies lightheadedness, Denies Loss of Consciousness, Denies palpitations and Reports dyspnea Respiratory: Respiratory: Reports no additional respiratory complaints and Reports dyspnea Gastrointestinal: Gastrointestinal: Reports no additional gastrointestinal complaints Genitourinary: Genitourinary: Reports no additional female genitourinary complaints Integumentary/Breasts: Skin/Breast: Reports system reviewed and no additional complaints, except as docu Endocrine: Endocrine: Denies palpitations PMFSH Past Medical History Medical History Abscess of forearm, right Acute on chronic diastolic heart failure Acute respiratory failure with hypoxia Anemia B12 deficiency Chronic renal insufficiency CKD (chronic kidney disease) Congestive heart failure Diabetes Femoral artery stenosis Gram-positive bacteremia High cholesterol Hypertension Hypoxia Lower extremity edema Psoriasis of scalp PVD (peripheral vascular disease) Family History Family History Father No problems noted. Mother No problems noted. Surgical History Surgical History History of female sterilization History of shoulder surgery Social History Social History Household Members: Family Household Members Other:: Daughter Housing: House Do you presently have visiting nurse or other home services: Yes Alcohol intake: former Patient Tobacco Use Status: Never used Tobacco e-Cigarette/Vaping Use: Never Used Second Hand Smoke Exposure: No Advance Directives Date on File: 04/18/21 service: No Current occupational status: retired and disabled Cognitive needs: Yes Hearing needs: No Vision needs: No Meds Allergies Allergy/AdvReac Type Severity Reaction Status Date / Time Iodinated Contrast Media Allergy Unknown UNKNOWN Verified 08/13/22 16:05 [IODINATED CONTRAST MEDIA] Active Medications: Current Medications Acetaminophen (Acetaminophen 325 Mg Tablet) 650 mg PO Q6H PRN PRN Reason: moderate pain Amlodipine Besylate (Amlodipine Besylate 10 Mg Tablet) 10 mg PO BEDTIME [facility]; Protocol Last Admin: 12/24/22 20:35 Dose: 10 mg Aspirin (Aspirin Enteric Coated 81 Mg Tablet.) 81 mg PO DAILY [facility] Atorvastatin Calcium (Atorvastatin Calcium 40 Mg Tablet) 40 mg PO BEDTIME [facility] Last Admin: 12/24/22 20:35 Dose: 40 mg Bumetanide (Bumetanide 1 Mg/4 Ml Vial) 1 mg IVPUSH BID@0900,1700 [facility]; Protocol Last Admin: 12/25/22 10:32 Dose: 1 mg Cyanocobalamin (Cyanocobalamin (Vitamin B-12) 1,000 Mcg Tablet) 1,000 mcg PO BEDTIME [facility] Last Admin: 12/24/22 20:36 Dose: 1,000 mcg Ferrous Sulfate (Ferrous Sulfate 324 Mg Tablet.) 324 mg PO TID [facility] Last Admin: 12/25/22 12:02 Dose: Not Given Hydralazine HCl (Hydralazine Hcl 50 Mg Tablet) 50 mg PO TID [facility]; Protocol Last Admin: 12/25/22 12:02 Dose: Not Given Isosorbide Mononitrate (Isosorbide Mononitrate 60 Mg Tab.Er.24h) 60 mg PO DAILY [facility]; Protocol Last Admin: 12/25/22 12:02 Dose: Not Given Multivitamins/Vitamin C (Multivitamin Tablet) 1 tab PO BEDTIME [facility] Last Admin: 12/24/22 20:40 Dose: 1 tab Pharmacy Consult (Consult Rx Perform Med Rec) 1 each MISCELLANE ONCE PRN PRN Reason: Consult order Pregabalin (Pregabalin 25 Mg Capsule) 25 mg PO BEDTIME [facility] Last Admin: 12/24/22 20:35 Dose: 25 mg Sodium Chloride (0.9 % Sodium Chloride Flush 3 Ml Syringe) 3 ml IVFLUSH QSHIFT [facility] Last Admin: 12/25/22 10:33 Dose: 3 ml Home Medications Medication Instructions Recorded Confirmed Last Taken Type acetaminophen 325 mg tablet 650 mg PO Q6H PRN Pain 09/10/21 12/24/22 Unknown History amlodipine 10 mg tablet 10 mg PO BEDTIME 08/17/22 12/24/22 08/16/22 History cyanocobalamin (vitamin B-12) 1,000 mcg PO BEDTIME 08/17/22 12/24/22 08/16/22 History 1,000 mcg tablet (Vitamin B-12) multivitamin with folic acid 400 1 tab PO BEDTIME 08/17/22 12/24/22 08/16/22 History mcg tablet hydralazine 50 mg tablet 50 mg PO TID 12/24/22 12/24/22 Unknown History Physical Exam Vital Signs: Vital Signs: Last Vital Signs Temp 98.3 F 12/25/22 11:28 Pulse 97 12/25/22 11:28 Resp 20 12/25/22 11:28 BP 134/57 L 12/25/22 11:28 Pulse Ox 91 L 12/25/22 11:28 O2 Del Method CPAP 12/25/22 11:28 O2 Flow Rate 6 12/24/22 21:23 Oxygen Flow Rate 6 12/24/22 06:55 BMI result Body Mass Index 35.4 Const: General: cooperative, alert, awake, in distress mild and respiratory and ill appearing Nutritional Appearance: obese Orientation/consciousness: patient oriented x3 HEENT: Head: Yes normocephalic and Yes atraumatic Neck: Neck: Yes trachea midline, Yes supple and Yes no JVD Resp: Effort & Inspection: decreased respiratory effort Auscultation: clear to auscultation bilaterally, no rales and diminished lung sounds Cardio: Palpation: normal PMI Rate: regular rate Rhythm: regular rhythm Heart sounds: S1 normal heart sound present, S2 normal heart sound present, no click, no gallops and no murmurs GI: Auscultation: normal bowel sounds Skin: General skin exam: no rashes or lesions noted Neuro: General: patient oriented x3 Objective Labs and Meds 12/25/22 04:49 12/25/22 04:49 Lab results: Laboratory Results - last 24 hr 12/24/22 12/24/22 12/24/22 13:51 22:19 22:20 WBC RBC Hgb Hct MCV MCH MCHC RDW Plt Count MPV Absolute Nucleated RBC Nucleated RBC % (auto) PT INR aPTT Heparin Protocol 93.6 H VBG pH 7.48 H VBG pCO2 39 VBG pO2 94 VBG HCO3 29 H VBG O2 Saturation 99.0 VBG Base Excess 6.2 Sodium Potassium Chloride Carbon Dioxide Anion Gap BUN Creatinine Estim Creat Clear Calc Estimated GFR Fasting Glucose Calcium Magnesium Iron TIBC % Saturation Unsat Iron Binding Troponin I High Sens 1274.1 H* Blood Type Antibody Screen Crossmatch 12/25/22 12/25/22 12/25/22 04:49 04:49 04:49 WBC 6.8 RBC 2.32 L Hgb 6.8 L* Hct 21.5 L MCV 92.7 MCH 29.3 MCHC 31.6 RDW 14.5 Plt Count 202 MPV 10.7 Absolute Nucleated RBC 0.000 Nucleated RBC % (auto) 0.0 PT 11.3 INR 1.0 aPTT Heparin Protocol VBG pH VBG pCO2 VBG pO2 VBG HCO3 VBG O2 Saturation VBG Base Excess Sodium 142 Potassium 4.5 Chloride 104 Carbon Dioxide 29 Anion Gap 14 BUN 81 H Creatinine 3.62 H Estim Creat Clear Calc 14.7 Estimated GFR 12 Fasting Glucose 104 H Calcium 8.9 D Magnesium 2.3 Iron 27 L TIBC 180 L % Saturation 15 Unsat Iron Binding 153 Troponin I High Sens Blood Type Antibody Screen Crossmatch 05/11/1412/25/22 12/25/22 04:49 06:04 12:11 WBC RBC Hgb Hct MCV MCH MCHC RDW Plt Count MPV Absolute Nucleated RBC Nucleated RBC % (auto) PT INR aPTT Heparin Protocol 46.1 L D 45.3 L VBG pH VBG pCO2 VBG pO2 VBG HCO3 VBG O2 Saturation VBG Base Excess Sodium Potassium Chloride Carbon Dioxide Anion Gap BUN Creatinine Estim Creat Clear Calc Estimated GFR Fasting Glucose Calcium Magnesium Iron TIBC % Saturation Unsat Iron Binding Troponin I High Sens Blood Type A Positive Antibody Screen NEGATIVE Crossmatch See Detail EKG shows normal sinus rhythm with ST depression high lateral and anterolateral leads Assessment and Plan (1) Acute exacerbation of CHF (congestive heart failure): Status: Acute Acute exacerbation of congestive heart failure, start onset with EKG changes suggestive ischemia along with elevated troponin, represent most likely ischemic congestive heart failure however she has multiple comorbidities including poor functional status, advanced kidney disease as well as significant anemia with drop in hematocrit of unclear origin. Would stop IV heparin for now given that she might have a bleeding source. Will transfuse her to maintain hematocrit over 30. Continue IV diuresis and supportive care. High likelihood of underlying significant coronary artery disease although given her overall comorbidities will pursue conservative management. Continue isosorbide. Add metoprolol to her regimen. Continue supportive care with CPAP and respiratory support. Overall prognosis is guarded. Please obtain a repeat echocardiogram, limited to evaluate for LV function and regional wall motion abnormality. Will follow with you Time Spent With Patient Time: Total time managing care of this patient today ____ minutes. Procedures Date of Service Date of Service: 12/25/22
--- NOTE | 2022-12-25 12:59 | MHC.CM.PN ---
IMM 12/25/22. Pt admitted with dx CHF, NSTEMI. D/C plan pending further evaluation. Pt SSO from home, had [facility] services, used W/C and O2 at 2L/min cont. HCP/daughter Emilee [phone]. BLS to transport. PCP: Kay Mata.
--- NOTE | 2022-12-25 13:41 | HO.PM.IMPN ---
Subjective Subjective Date of Service: 12/25/22 Interval History: Seen and evaluated this morning noted to have a drop in Hb overnight required CPAP on multiple occasions for hypoxia Cr remains elevated No other overnight events Review of Systems Review of Systems: Yes all other systems are reviewed and are negative Physical Exam Vital Signs: Vital Signs: Last Vital Signs Temp 98.3 F 12/25/22 11:28 Pulse 97 12/25/22 11:28 Resp 20 12/25/22 11:28 BP 134/57 L 12/25/22 11:28 Pulse Ox 91 L 12/25/22 11:28 O2 Del Method CPAP 12/25/22 11:28 O2 Flow Rate 6 12/24/22 21:23 Oxygen Flow Rate 6 12/24/22 06:55 BMI result Body Mass Index 35.4 Const: Other: Constitutional : Awake, w, in respiratory disrress Neck : Normal inspection, Supple Cardiovascular : RRR, elevated JVP, +1 bilateral lower extremity edema Respiratory : fair bilateral air entry, basal fine crackles Gastrointestinal: soft, lax, Normal bowel sounds, Non tender Skin : Warm, Dry Neurological : Alert & oriented x3, No focal deficit Objective Data Active Medications Acetaminophen (Acetaminophen 325 Mg Tablet) 650 mg PO Q6H PRN PRN Reason: moderate pain Aspirin (Aspirin Enteric Coated 81 Mg Tablet.) 81 mg PO DAILY [facility] Atorvastatin Calcium (Atorvastatin Calcium 40 Mg Tablet) 40 mg PO BEDTIME [facility] Last Admin: 12/24/22 20:35 Dose: 40 mg Documented By: ALEKSANDR Bumetanide (Bumetanide 1 Mg/4 Ml Vial) 1 mg IVPUSH BID@0900,1700 [facility]; Protocol Last Admin: 12/25/22 10:32 Dose: 1 mg Documented By: ELIZABETH Cyanocobalamin (Cyanocobalamin (Vitamin B-12) 1,000 Mcg Tablet) 1,000 mcg PO BEDTIME [facility] Last Admin: 12/24/22 20:36 Dose: 1,000 mcg Documented By: ALEKSANDR Ferrous Sulfate (Ferrous Sulfate 324 Mg Tablet.) 324 mg PO TID [facility] Last Admin: 12/25/22 12:02 Dose: Not Given Documented By: ELIZABETH Non-Admin Reason: Patient Condition Contraindication Hydralazine HCl (Hydralazine Hcl 50 Mg Tablet) 50 mg PO TID [facility]; Protocol Last Admin: 12/25/22 12:02 Dose: Not Given Documented By: ELIZABETH Non-Admin Reason: Patient Condition Contraindication Nitroglycerin/Dextrose (Nitroglycerin/D5w) 100 mg in 250 mls @ 0 mls/hr IVCONT .Q0M [facility]; Protocol Multivitamins/Vitamin C (Multivitamin Tablet) 1 tab PO BEDTIME [facility] Last Admin: 12/24/22 20:40 Dose: 1 tab Documented By: ALEKSANDR Pharmacy Consult (Consult Rx Perform Med Rec) 1 each MISCELLANE ONCE PRN PRN Reason: Consult order Pregabalin (Pregabalin 25 Mg Capsule) 25 mg PO BEDTIME [facility] Last Admin: 12/24/22 20:35 Dose: 25 mg Documented By: ALEKSANDR Sodium Chloride (0.9 % Sodium Chloride Flush 3 Ml Syringe) 3 ml IVFLUSH QSHIFT [facility] Last Admin: 12/25/22 10:33 Dose: 3 ml Documented By: ELIZABETH Labs 12/25/22 04:49 12/25/22 04:49 Labs: Laboratory Results - last 24 hr 12/24/22 12/24/22 12/24/22 13:51 22:19 22:20 MCV MCH MCHC RDW Plt Count MPV Absolute Nucleated RBC Nucleated RBC % (auto) PT INR aPTT Heparin Protocol 93.6 H VBG pH 7.48 H VBG pCO2 39 VBG pO2 94 VBG HCO3 29 H VBG O2 Saturation 99.0 VBG Base Excess 6.2 Anion Gap Estim Creat Clear Calc Estimated GFR Fasting Glucose Calcium Magnesium Iron TIBC % Saturation Unsat Iron Binding Troponin I High Sens 1274.1 H* Blood Type Antibody Screen Crossmatch 12/25/22 12/25/22 12/25/22 04:49 04:49 04:49 MCV 92.7 MCH 29.3 MCHC 31.6 RDW 14.5 Plt Count 202 MPV 10.7 Absolute Nucleated RBC 0.000 Nucleated RBC % (auto) 0.0 PT 11.3 INR 1.0 aPTT Heparin Protocol VBG pH VBG pCO2 VBG pO2 VBG HCO3 VBG O2 Saturation VBG Base Excess Anion Gap 14 Estim Creat Clear Calc 14.7 Estimated GFR 12 Fasting Glucose 104 H Calcium 8.9 D Magnesium 2.3 Iron 27 L TIBC 180 L % Saturation 15 Unsat Iron Binding 153 Troponin I High Sens Blood Type Antibody Screen Crossmatch 12/25/22 12/25/22 12/25/22 04:49 06:04 12:11 MCV MCH MCHC RDW Plt Count MPV Absolute Nucleated RBC Nucleated RBC % (auto) PT INR aPTT Heparin Protocol 46.1 L D 45.3 L VBG pH VBG pCO2 VBG pO2 VBG HCO3 VBG O2 Saturation VBG Base Excess Anion Gap Estim Creat Clear Calc Estimated GFR Fasting Glucose Calcium Magnesium Iron TIBC % Saturation Unsat Iron Binding Troponin I High Sens Blood Type A Positive Antibody Screen NEGATIVE Crossmatch See Detail Microbiology Microbiology Results: Microbiology 12/24/22 08:23 Blood Culture - Preliminary Blood - Venous No growth after 24 hours. 12/24/22 07:43 Blood Culture - Preliminary Blood - Venous No growth after 24 hours. 12/24/22 Unknown Urine Culture - Final Urine clean catch - Urine allen top No growth. Assessment and Plan (1) Acute exacerbation of CHF (congestive heart failure): Status: Acute (2) Acute respiratory failure with hypoxia: Status: Acute (3) Symptomatic anemia: Status: Acute Plan 82F PMH chronic hypoxic respiratory failure on 2L home o2, chronic diastolic chf, CKD IV, obesity, HTN, HLD, preDM, presented with shortness of breath acute on chronic hypoxic respiratory failure due to acute on chronic diastolic chf secondary to acute ACS continue iv bumex cpap for hypoxia cardio eval recommended medical management Critical care team will take her to ICU given hemoglobin drop and holding blood thinner for NTG drip and hypoxia management NSTEMI DC iv heparin for drop in Hb hold on ASA with bleeding Statin cardio eval appreciated Acute on chronic symptomatic anemia likely blood loss Low iron profile Transfuse 1 unit PRBCs negative occult stool NAHID on cKD IV suspect cardiorenal, monitor while diuresing obesity weight loss recomended chronic anemia monitor htn amlodipine hld statin dvt prophylaxis - on iv heparin full code patient with significantly overload needing iv diuresis and more oxygen supplement will transfer to ICU for further treatment. Time Spent With Patient Time: Total time managing care of this patient today ____ minutes. Quality Stroke Does the patient have a stroke diagnosis?: No VTE Prior VTE?: No VTE Risk Level:: Medical - moderate - high VTE Device Contraindication: Treatment Not Indicated VTE Drug Contraindication: N/A - Med Ordered
--- NOTE | 2022-12-25 15:32 | P.CONCC_ITS ---
History of Present Illness Data of Consult Service Date: 12/25/22 Requesting physician: Elisabet Campo Primary Care Provider: Kay Mata [facility] Reason for consult: acute hypoxic respiratory failure/ distress 82-year-old morbidly obese female with acute hypoxic respiratory failure who is currently on CPAP for intractable hypoxemia seemingly requiring the positive- pressure but markedly tachypneic with accessory muscle in diaphragmatic effort and known background of peripheral vascular disease and guaiac-positive stool and apparently was was heparinized because she developed a new and ST-T change actually yesterday in the posterolateral distribution and today's bedside echo definitely shows a posterior lateral new wall motion abnormality with preservation of function in the anterior distribution normal right ventricle no primary valve disease but clearly significant mitral regurgitation and pulmonary hypertension but increased E wave velocity across the mitral valve and short of having tissue Doppler probably an increased E to E prime ratio implying markedly elevated left heart filling pressures and and therefore this looks like a circumflex distribution acute infarct especially given the significant positivity of yesterday's cardiac enzymes and BNP I changed her from CPAP to BiPAP with a an expiratory pressure of approximately 8 and broader down to the ICU to start IV nitroglycerin especially in light of the acute hypertension at 01:50 systolic chest x-ray unequivocally consistent with congestive heart failure which is markedly plus Thorek even with some early bilateral pleural effusions Review of Systems Review of Systems: Yes Unobtainable due to mental status PMFSH Past Medical History Medical History (Updated 12/25/22 @ 15:39 by Ekaterina Perez MD) Abscess of forearm, right Acute on chronic diastolic heart failure Acute respiratory failure with hypoxia Anemia B12 deficiency Chronic renal insufficiency CKD (chronic kidney disease) Congestive heart failure Diabetes Femoral artery stenosis Gram-positive bacteremia High cholesterol Hypertension Hypoxia Lower extremity edema Psoriasis of scalp PVD (peripheral vascular disease) Family History Family History Father No problems noted. Mother No problems noted. Surgical History Surgical History History of female sterilization History of shoulder surgery Social History Social History Household Members: Family Household Members Other:: Daughter Housing: House Do you presently have visiting nurse or other home services: Yes Alcohol intake: former Patient Tobacco Use Status: Never used Tobacco Smoked in Last 30 Days: No e-Cigarette/Vaping Use: Never Used Second Hand Smoke Exposure: No Use of substances other than those prescribed or required for medical reasons: No Currently Displaying Signs/Symptoms of Drug Intoxication Withdrawal: No Any prior treatment program specific to substance use: No Have you been hit, kicked, punched, or otherwise hurt by someone within the past year? If so, by whom?: No Do you feel safe in your current relationship?: No Current Relationship Is there a partner from a previous relationship who is making you feel unsafe now?: No Are you made to feel afraid or neglected: No Advance Directives: Yes Advance Directives on File: Yes Advance Directives Date on File: 04/18/21 Do you have thoughts of harming others: None Do you have a plan to hurt others: No Plan Recently lost weight without trying: No Nutrition Risks: No Nutritional Risk Patient : No service: No Current occupational status: retired and disabled Cognitive needs: Yes Hearing needs: No Vision needs: No Meds Allergies Allergy/AdvReac Type Severity Reaction Status Date / Time Iodinated Contrast Media Allergy Unknown UNKNOWN Verified 08/13/22 16:05 [IODINATED CONTRAST MEDIA] Active Medications: Current Medications Acetaminophen (Acetaminophen 325 Mg Tablet) 650 mg PO Q6H PRN PRN Reason: moderate pain Aspirin (Aspirin Enteric Coated 81 Mg Tablet.) 81 mg PO DAILY COUNT INCLUDES THE [facility] Atorvastatin Calcium (Atorvastatin Calcium 40 Mg Tablet) 40 mg PO BEDTIME COUNT INCLUDES THE [facility] Last Admin: 12/24/22 20:35 Dose: 40 mg Cyanocobalamin (Cyanocobalamin (Vitamin B-12) 1,000 Mcg Tablet) 1,000 mcg PO BEDTIME COUNT INCLUDES THE [facility] Last Admin: 12/24/22 20:36 Dose: 1,000 mcg Ferrous Sulfate (Ferrous Sulfate 324 Mg Tablet.) 324 mg PO TID COUNT INCLUDES THE [facility] Last Admin: 12/25/22 14:45 Dose: Not Given Nitroglycerin/Dextrose (Nitroglycerin/D5w) 100 mg in 250 mls @ 0 mls/hr IVCONT .Q0M COUNT INCLUDES THE [facility]; Protocol Pharmacy Consult (Consult Rx Perform Med Rec) 1 each MISCELLANE ONCE PRN PRN Reason: Consult order Pregabalin (Pregabalin 25 Mg Capsule) 25 mg PO BEDTIME COUNT INCLUDES THE [facility] Last Admin: 12/24/22 20:35 Dose: 25 mg Sodium Chloride (0.9 % Sodium Chloride Flush 3 Ml Syringe) 3 ml IVFLUSH QSHIFT COUNT INCLUDES THE [facility] Last Admin: 12/25/22 10:33 Dose: 3 ml Home Medications Medication Instructions Recorded Confirmed Last Taken Type acetaminophen 325 mg tablet 650 mg PO Q6H PRN Pain 09/10/21 12/24/22 Unknown History amlodipine 10 mg tablet 10 mg PO BEDTIME 08/17/22 12/24/22 08/16/22 History cyanocobalamin (vitamin B-12) 1,000 mcg PO BEDTIME 08/17/22 12/24/22 08/16/22 History 1,000 mcg tablet (Vitamin B-12) multivitamin with folic acid 400 1 tab PO BEDTIME 08/17/22 12/24/22 08/16/22 History mcg tablet hydralazine 50 mg tablet 50 mg PO TID 12/24/22 12/24/22 Unknown History Physical Exam Vital Signs: Vital Signs: Last Vital Signs Temp 98.2 F 12/25/22 14:20 Pulse 98 12/25/22 14:20 Resp 32 H 12/25/22 14:20 BP 150/67 H 12/25/22 14:20 Pulse Ox 91 L 12/25/22 11:28 O2 Del Method CPAP 12/25/22 11:28 O2 Flow Rate 6 12/24/22 21:23 Oxygen Flow Rate 6 12/24/22 06:55 BMI result Body Mass Index 35.4 vital signs stable but marked tachypnea with accessory muscle in diaphragmatic effort bilateral wheezing otherwise diminished breath sounds bedside echo defining wall motion abnormality in the posterior lateral distribution quite poss ibly circumflex abdomen obese but soft with no organomegaly no significant peripheral edema but there is significant neck vein distension Results Labs 12/25/22 04:49 12/25/22 04:49 Labs: Short CBC 12/25/22 Range/Units 04:49 WBC 6.8 (4.8-10.8) X10*3/uL Hgb 6.8 L* (12.0-16.0) g/dl Hct 21.5 L (37.0-47.0) % Plt Count 202 (160-400) X10*3/uL BMP 12/25/22 04:49 Sodium 142 Potassium 4.5 Chloride 104 Carbon Dioxide 29 BUN 81 H Creatinine 3.62 H Calcium 8.9 D Microbiology Microbiology Results: Microbiology 12/24/22 08:23 Blood - Venous Blood Culture - Preliminary Prelim: GPC Gram Stain only 12/24/22 07:43 Blood - Venous Blood Culture - Preliminary No growth after 24 hours. 12/24/22 Unknown Urine clean catch - Urine allen top Urine Culture - Final No growth. 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 insulin use: without skilled nursing use Diabetes mellitus complication status: with other specified complication Qualified Code(s): E11.69 - Type 2 diabetes mellitus with other specified complication Status: Acute (6) Congestive heart failure: Status: Acute (7) Acute pulmonary edema: Status: Acute (8) Acute myocardial infarction of posterolateral wall: Status: Acute (9) Acute kidney injury superimposed on chronic kidney disease: Status: Acute (10) Guaiac + stool: Status: Acute (11) Acute exacerbation of CHF (congestive heart failure): Status: Acute (12) Gram-positive bacteremia: Status: Acute (13) MSSA bacteremia: Status: Acute (14) MRSA cellulitis: Status: Acute (15) NAHID (acute kidney injury): Status: Acute (16) Anemia: Status: Acute (17) Femoral artery stenosis: Status: Acute (18) PVD (peripheral vascular disease): Status: Acute Plan the plan is to start IV nitroglycerin titrate for systolic pressure no lower than 15 mm below the baseline and on entry in and hopefully restoring respiratory comfort and BiPAP as well as an adjunct for treatment of congestive heart failure because her candidacy for cardiac sawyer cork slabs knowing that she has got a bleeding site dropping hemoglobin on anticoagulation would preclude the use of aggressive sawyer cork slabs approach to this disease plus per 24 hours I think into the evolution of this infarct so were little bit beyond the window to to run that risk so we will hopefully nurse to her through the heart failure aspect Time Spent With Patient Time: Total time managing care of this patient today 60____ minutes.
[2022-12-25 16:01] LABS: VBG Base Excess 7.2 mmol/L; VBG HCO3 27 mmol/L (22-26); VBG pCO2 24 mmHg; VBG pH 7.66 (7.32-7.43); VBG pO2 135 mmHg
[2022-12-25 16:18] LABS: Anion Gap 16 (12-20); Blood Urea Nitrogen 79 mg/dL (9-16); Calcium 9.5 mg/dL (8.4-10.2); Carbon Dioxide 27 mmol/L (22-29); Chloride 103 mmol/L (96-108); Creatinine Clr Calc Pharmacy 15.2; Estimated Glomerular Filt Rate 13; Glucose Random 169 mg/dL (60-115); Potassium 4.3 mmol/L (3.3-5.1); Sodium 142 mmol/L (135-145)
[2022-12-25 16:29] LABS: Troponin-I High Sensitivity 591.6 ng/L (<3.5-17.0)
[2022-12-25 17:35] LABS: Glucose, Whole Blood 160 mg/dL (60-115)
[2022-12-25] MEDS: Nitroglycerin/D5W 100 MG/250 ML INFUS..BTL IVCONT (17:56)
--- NOTE | 2022-12-25 18:40 | PC.NURSE ---
Pt transferred to the ICU from [facility]. Pt was having some increased respiratory distress. Pt brought down on Bipap, tolerating well. 1 unit RBC completed. Unable to obtain any additional IV access. Nitroglycerin drip started at 10 mcg/ min per Dr Perez. Goal SBP >130. cafeteria monitor Sinus rhythm. Afebrile. Telugu speaking. Pt denied any headache, dizziness, blurred vision, numbness or tingling. Pain noted in bilateral legs with movement. +2 edema. Heparin drip discontinued earlier today. Compression boots applied. Lab called with results of Gram positive cocci in blood, Dr Perez notifed. No new orders at this time. Vera draining clear yellow urine. Small Stage 2 on coccyx noted, foam dsg applied. Also appears to have old healed wound on coccyx. See assessment for further documentation.
[2022-12-25 19:18] LABS: Venous Blood Gas Refer to POC result
[2022-12-25 21:11] LABS: Glucose, Whole Blood 133 mg/dL (60-115)
[2022-12-26] VITALS (36 sets, daily range): BP systolic 103–159; BP diastolic 38–64; PULSE 61–101; RESP 14–39; TEMP 36.1–37.2; O2SAT 86–99; BMI 35.6
[2022-12-26 05:29] LABS: VBG Base Excess 7.5 mmol/L; VBG HCO3 31 mmol/L (22-26); VBG pCO2 42 mmHg; VBG pH 7.48 (7.32-7.43); VBG pO2 34 mmHg
[2022-12-26 05:29] LABS: MANUAL DIFF FLAG NO
[2022-12-26 05:30] LABS: Venous Blood Gas Refer to POC result
[2022-12-26 05:37] LABS: Basophils Percent Auto 0.4 % (0-2); Eosinophils Absolute Auto 0.1 X10*3/uL (0.0-0.4); Eosinophils Percent Auto 0.7 % (0-4); Hematocrit 22.7 % (37.0-47.0); Hemoglobin 7.6 g/dl (12.0-16.0); Imm Gran Abs Auto 0.04 X10*3/uL (0.00-0.03); Imm Gran Pct Auto 0.5 % (0.0-0.4); Lymphocytes Absolute Auto 1.1 X10*3/uL (1.2-4.9); Lymphocytes Percent Auto 14.3 % (20-40); Mean Corpuscular HGB Conc 33.5 g/dl (31.0-35.0); Mean Corpuscular Hemoglobin 30.6 pg (27.0-33.0); Mean Corpuscular Volume 91.5 fL (80.0-98.0); Monocytes Absolute Auto 0.7 X10*3/uL (0.1-1.2); Monocytes Percent Auto 8.9 % (2-11); Neutrophils Absolute Auto 5.6 x10*3/uL (2.0-8.3); Neutrophils Percent Auto 75.2 % (45-73); Platelet Count 198 X10*3/uL (160-400); Red Blood Count 2.48 X10*6/uL (4.20-5.50); Red Cell Distribution Width 14.1 % (11.0-16.0); White Blood Count 7.5 X10*3/uL (4.8-10.8)
[2022-12-26 05:54] LABS: Alanine Aminotransferase 9 U/L (0-31); Albumin Level 3.3 g/dL (3.5-5.0); Alkaline Phosphatase 60 U/L (39-117); Anion Gap 16 (12-20); Aspartate Amino Transferase 41 U/L (5-31); Bilirubin Total 0.6 mg/dL (0.0-1.0); Blood Urea Nitrogen 81 mg/dL (9-16); Calcium 9.1 mg/dL (8.4-10.2); Carbon Dioxide 27 mmol/L (22-29); Chloride 104 mmol/L (96-108); Creatinine Clr Calc Pharmacy 15.4; Estimated Glomerular Filt Rate 13; Glucose Random 96 mg/dL (60-115); Sodium 143 mmol/L (135-145); Total Protein 6.3 g/dL (6.5-8.0)
[2022-12-26] MEDS: acetaZOLAMIDE sodium 500 MG VIAL IVPUSH (06:27)
[2022-12-26 07:28] LABS: Troponin-I High Sensitivity > 3600.0 ng/L (<3.5-17.0)
[2022-12-26 07:42] LABS: Glucose, Whole Blood 99 mg/dL (60-115)
--- NOTE | 2022-12-26 09:17 | MHC.CLN ---
F/U PT TRANSFERRED TO ICU FROM MEDICAL FLOOR PO INTAKE POOR DIET RX: 2200DM-WILL CHANGE TO 2000DM BASED ON CALORIC NEEDS PT WITH INCREASED RISK R/T PRESSURE INJURY RECOMMEND ADDING ENSURE MAX BID TO PROMOTE WOUND HEALING SUPP TO PROVIDE 300KCALS, 60G PROTEIN MONITOR PO INTAKE
[2022-12-26] MEDS: Ferrous Sulfate 324 MG TABLET.DR PO ×3 (09:24→21:22)
[2022-12-26] MEDS: Aspirin Enteric Coated 81 MG TABLET.DR PO (09:24)
[2022-12-26] MEDS: 0.9 % Sodium Chloride Flush 3 ML SYRINGE IVFLUSH ×3 (09:24→23:47)
[2022-12-26 11:58] LABS: Glucose, Whole Blood 163 mg/dL (60-115)
--- NOTE | 2022-12-26 13:49 | MHC.CM.PN ---
Pt transferred to ICU for NIPPV support and Nitro gtt following NSTEMI/CHF. Initial d/c plans were for a return to home w/existing services however, pt may require a higher level of care and may need placement. CM to follow for functional assessment of d/c needs.
--- NOTE | 2022-12-26 14:29 | PM.CCPN ---
Subjective Subjective Date of Service: 12/26/22 Interval History: 82-year-old morbidly obese type 2 diabetic with a history of peripheral vascular disease presented with any evolving acute probably circumflex distribution inferior 0 posterolateral infarct peak CPK over 3000 and went into pulmonary edema and require BiPAP support along with IV nitroglycerin and she looked wonderful this morning spent almost an hour and a half off of the BiPAP and then started to become tachypneic with some diaphragmatic effort and we had to put her back on BiPAP and titrate up a little bit on the IV nitroglycerin of mean of pursuing the elevated blood pressure and and of course her work of breathing looks perfectly calm now but still manifesting the need for noninvasive or positive-pressure breathing Critical Care Time (minutes): 45 Physical Exam Vital Signs: Vital Signs: Last Vital Signs Temp 98.5 F 12/26/22 08:00 Pulse 78 12/26/22 14:00 Resp 18 12/26/22 14:00 BP 137/53 L 12/26/22 14:00 Pulse Ox 96 12/26/22 14:00 O2 Del Method BiPAP 12/26/22 14:00 O2 Flow Rate 4 12/26/22 10:00 FiO2 35 12/26/22 14:00 Oxygen Flow Rate 6 12/24/22 06:55 BMI result Body Mass Index 35.6 Mildly acutely hypertensive and that his now better she has fallen asleep with a reduced respiratory rate below 20 and no accessory muscle a diaphragmatic effort and pressures are running currently at about 115-125 systolic on the nitroglycerin and she is slowly diuresing heart rate is at about 68 with an oxygen saturation at 98% Lungs now without adventitious sounds just very mild bibasilar rales Cardiac exam adequate but mildly reduced bilateral carotid upstrokes with no neck vein distension and no gallop Still has bilateral 2+ peripheral edema Objective Data Labs 12/26/22 05:17 12/26/22 05:17 Labs: Laboratory Results - last 24 hr 12/25/22 12/25/22 12/25/22 15:53 15:53 15:54 WBC RBC Hgb Hct MCV MCH MCHC RDW Plt Count MPV Immature Gran % (Auto) Neut % (Auto) Lymph % (Auto) [place] % (Auto) Eos % (Auto) Baso % (Auto) Lymph # (Auto) [place] # (Auto) Eos # (Auto) Baso # (Auto) Abs Immat Gran (auto) Absolute Neuts (auto) Absolute Nucleated RBC Nucleated RBC % (auto) VBG pH 7.66 H* VBG pCO2 24 VBG pO2 135 VBG HCO3 27 H VBG O2 Saturation 99.0 VBG Base Excess 7.2 Sodium 142 Potassium 4.3 Chloride 103 Carbon Dioxide 27 Anion Gap 16 BUN 79 H Creatinine 3.50 H Estim Creat Clear Calc 15.2 Estimated GFR 13 POC Glucose Random Glucose 169 H Calcium 9.5 D Total Bilirubin AST ALT Alkaline Phosphatase Troponin I High Sens 591.6 H* D Total Protein Albumin 12/25/22 12/25/22 12/26/22 17:22 21:08 05:17 WBC 7.5 RBC 2.48 L Hgb 7.6 L Hct 22.7 L MCV 91.5 MCH 30.6 MCHC 33.5 RDW 14.1 Plt Count 198 MPV 11.0 Immature Gran % (Auto) 0.5 H Neut % (Auto) 75.2 H Lymph % (Auto) 14.3 L [place] % (Auto) 8.9 Eos % (Auto) 0.7 Baso % (Auto) 0.4 Lymph # (Auto) 1.1 L [place] # (Auto) 0.7 Eos # (Auto) 0.1 Baso # (Auto) 0.0 Abs Immat Gran (auto) 0.04 H Absolute Neuts (auto) 5.6 Absolute Nucleated RBC 0.000 Nucleated RBC % (auto) 0.0 VBG pH VBG pCO2 VBG pO2 VBG HCO3 VBG O2 Saturation VBG Base Excess Sodium Potassium Chloride Carbon Dioxide Anion Gap BUN Creatinine Estim Creat Clear Calc Estimated GFR POC Glucose 160 H 133 H Random Glucose Calcium Total Bilirubin AST ALT Alkaline Phosphatase Troponin I High Sens Total Protein Albumin 12/26/22 12/26/22 12/26/22 05:17 05:21 06:46 WBC RBC Hgb Hct MCV MCH MCHC RDW Plt Count MPV Immature Gran % (Auto) Neut % (Auto) Lymph % (Auto) [place] % (Auto) Eos % (Auto) Baso % (Auto) Lymph # (Auto) [place] # (Auto) Eos # (Auto) Baso # (Auto) Abs Immat Gran (auto) Absolute Neuts (auto) Absolute Nucleated RBC Nucleated RBC % (auto) VBG pH 7.48 H VBG pCO2 42 VBG pO2 34 VBG HCO3 31 H VBG O2 Saturation TNP VBG Base Excess 7.5 Sodium 143 Potassium 4.0 Chloride 104 Carbon Dioxide 27 Anion Gap 16 BUN 81 H Creatinine 3.47 H Estim Creat Clear Calc 15.4 Estimated GFR 13 POC Glucose Random Glucose 96 Calcium 9.1 Total Bilirubin 0.6 AST 41 H ALT 9 Alkaline Phosphatase 60 Troponin I High Sens > 3600.0 H* D Total Protein 6.3 L Albumin 3.3 L 12/26/22 12/26/22 07:39 11:52 WBC RBC Hgb Hct MCV MCH MCHC RDW Plt Count MPV Immature Gran % (Auto) Neut % (Auto) Lymph % (Auto) [place] % (Auto) Eos % (Auto) Baso % (Auto) Lymph # (Auto) [place] # (Auto) Eos # (Auto) Baso # (Auto) Abs Immat Gran (auto) Absolute Neuts (auto) Absolute Nucleated RBC Nucleated RBC % (auto) VBG pH VBG pCO2 VBG pO2 VBG HCO3 VBG O2 Saturation VBG Base Excess Sodium Potassium Chloride Carbon Dioxide Anion Gap BUN Creatinine Estim Creat Clear Calc Estimated GFR POC Glucose 99 163 H Random Glucose Calcium Total Bilirubin AST ALT Alkaline Phosphatase Troponin I High Sens Total Protein Albumin Microbiology Microbiology Results: Microbiology 12/24/22 08:23 Blood - Venous Blood Culture - Final Coag negative Staphylococcus 12/24/22 07:43 Blood - Venous Blood Culture - Preliminary No growth after 48 hours. 12/24/22 Unknown Urine clean catch - Urine allen top Urine Culture - Final No growth. Progress Note: A&P Assessment and plan (1) Acute myocardial infarction of posterolateral wall: Status: Acute (2) Acute pulmonary edema: Status: Acute (3) Symptomatic anemia: Status: Acute (4) Acute respiratory failure with hypoxia: Status: Acute (5) Fecal incontinence: Status: Acute (6) Urinary incontinence: Status: Acute (7) CKD (chronic kidney disease): Status: Acute (8) B12 deficiency: Status: Acute (9) Diabetes: Status: Acute (10) Congestive heart failure: Status: Acute (11) Weakness: Status: Acute (12) Acute exacerbation of CHF (congestive heart failure): Status: Acute (13) Chest pain: Status: Acute (14) Guaiac + stool: Status: Acute (15) Acute kidney injury superimposed on chronic kidney disease: Status: Acute (16) Acute hyperkalemia: Status: Acute (17) Lumbar radiculopathy: Status: Acute (18) Low back pain at multiple sites: Status: Acute (19) Toe pain: Status: Acute (20) Back pain: Status: Acute (21) MRSA cellulitis: Status: Acute (22) MSSA bacteremia: Status: Acute (23) Gram-positive bacteremia: Status: Acute (24) Monoclonal gammopathies: Status: Acute (25) NAHID (acute kidney injury): Status: Acute (26) Anemia: Status: Acute (27) Femoral artery stenosis: Status: Acute (28) Psoriasis of scalp: Status: Inactive (29) Lower extremity edema: Status: Acute (30) PVD (peripheral vascular disease): Status: Acute Plan To the impression is that we have a a certainly an acute coronary syndrome in the inferior lateral distribution with ischemic pulmonary edema which improved with between IV nitroglycerin which does have a little bit of antiplatelet effect and along with the noninvasive ventilation so we will try to a.m. intermittently withhold the BiPAP to allow her to eat if tolerable and then a try to wean her again tomorrow morning but I am considering possible antiplatelet therapy the no despite that hemoglobin dropped when she was heparinized but with a drop in hemoglobin I am afraid to systemically anticoagulate her as we attempted to yesterday Quality Stroke Does the patient have a stroke diagnosis?: No VTE Prior VTE?: No VTE Risk Level:: Medical - moderate - high VTE Device Contraindication: Treatment Not Indicated VTE Drug Contraindication: N/A - Med Ordered
[2022-12-26 16:36] LABS: Glucose, Whole Blood 132 mg/dL (60-115)
[2022-12-26] MEDS: Clopidogrel Bisulfate 300 MG TABLET PO (16:49)
[2022-12-26 20:20] LABS: Glucose, Whole Blood 176 mg/dL (60-115)
[2022-12-26] MEDS: Insulin Lispro 100 UNIT/ML 3 ML VIAL SUBCUT (21:05)
[2022-12-26] MEDS: Atorvastatin Calcium 40 MG TABLET PO (21:22)
[2022-12-26] MEDS: Pregabalin 25 MG CAPSULE PO (21:22)
[2022-12-27] VITALS (29 sets, daily range): BP systolic 110–169; BP diastolic 37–81; PULSE 55–92; RESP 16–35; TEMP 36–37; O2SAT 88–99; BMI 36.2
--- NOTE | 2022-12-27 | ECG_ITS ---
Test Reason : chest tightness Blood Pressure : / mmHG Vent. Rate : 084 BPM Atrial Rate : 084 BPM P-R Int : 166 ms QRS Dur : 118 ms QT Int : 384 ms P-R-T Axes : 057 -33 104 degrees QTc Int : 453 ms Normal sinus rhythm Left axis deviation ST depression in lateral leads suggestive of ischemia Abnormal ECG When compared with ECG of 24-DEC-2022 14:46, No significant change was found Referred By: Jose Durant Electronically Signed By:RAÚL BLUE MD
[2022-12-27 05:33] LABS: VBG Base Excess 5.1 mmol/L; VBG HCO3 29 mmol/L (22-26); VBG pCO2 41 mmHg; VBG pH 7.45 (7.32-7.43); VBG pO2 73 mmHg
[2022-12-27 05:33] LABS: MANUAL DIFF FLAG NO
[2022-12-27 05:35] LABS: Venous Blood Gas Refer to POC result
[2022-12-27 05:37] LABS: Basophils Percent Auto 0.5 % (0-2); Eosinophils Absolute Auto 0.2 X10*3/uL (0.0-0.4); Eosinophils Percent Auto 2.7 % (0-4); Hematocrit 21.3 % (37.0-47.0); Imm Gran Abs Auto 0.04 X10*3/uL (0.00-0.03); Imm Gran Pct Auto 0.7 % (0.0-0.4); Lymphocytes Percent Auto 16.6 % (20-40); Mean Corpuscular HGB Conc 31.9 g/dl (31.0-35.0); Mean Corpuscular Hemoglobin 29.7 pg (27.0-33.0); Mean Platelet Volume 10.6 fL (9.4-12.3); Monocytes Absolute Auto 0.5 X10*3/uL (0.1-1.2); Monocytes Percent Auto 8.4 % (2-11); Neutrophils Absolute Auto 4.3 x10*3/uL (2.0-8.3); Neutrophils Percent Auto 71.1 % (45-73); Platelet Count 171 X10*3/uL (160-400); Red Blood Count 2.29 X10*6/uL (4.20-5.50); Red Cell Distribution Width 14.3 % (11.0-16.0)
[2022-12-27 05:42] LABS: Hemoglobin 6.8 g/dl (12.0-16.0)
[2022-12-27 05:59] LABS: Alanine Aminotransferase 10 U/L (0-31); Alkaline Phosphatase 51 U/L (39-117); Anion Gap 13 (12-20); Aspartate Amino Transferase 25 U/L (5-31); Bilirubin Total 0.5 mg/dL (0.0-1.0); Blood Urea Nitrogen 84 mg/dL (9-16); Calcium 8.4 mg/dL (8.4-10.2); Carbon Dioxide 27 mmol/L (22-29); Chloride 105 mmol/L (96-108); Creatinine Clr Calc Pharmacy 16.2; Estimated Glomerular Filt Rate 13; Glucose Random 82 mg/dL (60-115); Phosphorus 4.7 mg/dL (2.7-4.5); Potassium 3.4 mmol/L (3.3-5.1); Sodium 142 mmol/L (135-145); Total Protein 5.7 g/dL (6.5-8.0)
[2022-12-27] MEDS: Nitroglycerin/D5W 100 MG/250 ML INFUS..BTL IVCONT (06:18)
[2022-12-27 07:59] LABS: Glucose, Whole Blood 111 mg/dL (60-115)
[2022-12-27] MEDS: Ferrous Sulfate 324 MG TABLET.DR PO ×2 (09:34→14:17)
[2022-12-27] MEDS: 0.9 % Sodium Chloride Flush 3 ML SYRINGE IVFLUSH ×3 (09:34→21:31)
[2022-12-27] MEDS: Aspirin Enteric Coated 81 MG TABLET.DR PO (09:34)
--- NOTE | 2022-12-27 10:07 | MHC.CLN ---
F/U PO INTAKE 50-100% DIET RX: 2000DM-APPROPRIATE PT WITH INCREASED RISK R/T PRESSURE INJURY PT RECEIVING ENSURE MAX BID TO PROMOTE WOUND HEALING SUPP PROVIDES 300KCALS, 60G PROTEIN WITH 100% ACCEPTANCE MONITOR PO INTAKE
[2022-12-27 10:09] LABS: MANUAL DIFF FLAG NO
[2022-12-27 10:19] LABS: Basophils Absolute Auto 0.1 X10*3/uL (0.0-0.2); Basophils Percent Auto 0.6 % (0-2); Eosinophils Absolute Auto 0.2 X10*3/uL (0.0-0.4); Eosinophils Percent Auto 2.8 % (0-4); Hematocrit 27.7 % (37.0-47.0); Hemoglobin 8.9 g/dl (12.0-16.0); Imm Gran Abs Auto 0.04 X10*3/uL (0.00-0.03); Imm Gran Pct Auto 0.5 % (0.0-0.4); Lymphocytes Absolute Auto 1.1 X10*3/uL (1.2-4.9); Mean Corpuscular HGB Conc 32.1 g/dl (31.0-35.0); Mean Corpuscular Hemoglobin 30.6 pg (27.0-33.0); Mean Corpuscular Volume 95.2 fL (80.0-98.0); Mean Platelet Volume 11.4 fL (9.4-12.3); Monocytes Absolute Auto 0.7 X10*3/uL (0.1-1.2); Monocytes Percent Auto 8.7 % (2-11); Neutrophils Absolute Auto 5.7 x10*3/uL (2.0-8.3); Neutrophils Percent Auto 73.4 % (45-73); Platelet Count 190 X10*3/uL (160-400); Red Blood Count 2.91 X10*6/uL (4.20-5.50); Red Cell Distribution Width 14.2 % (11.0-16.0); White Blood Count 7.7 X10*3/uL (4.8-10.8)
[2022-12-27] MEDS: Acetaminophen 325 MG TABLET 650 MG PO ×2 (11:01→21:28)
[2022-12-27] MEDS: Clopidogrel Bisulfate 75 MG TABLET PO (11:02)
[2022-12-27 11:20] LABS: Glucose, Whole Blood 131 mg/dL (60-115)
[2022-12-27] MEDS: carvediloL 3.125 MG TABLET PO ×2 (14:17→16:11)
--- NOTE | 2022-12-27 15:31 | P.PNCC_ITS ---
Subjective Subjective Date of Service: 12/27/22 Interval History: 82-year-old type 2 diabetic morbidly obese female presented with acute hypoxemic respiratory failure respiratory distress and significant bilateral wheezing but bottom line she was in pulmonary edema troponin peaked at over 3000 she acutely in the hospital developed new ST-T depression predominantly in the lateral distribution with a new inferior lateral and maybe even a little bit of and distal apical septal wall motion abnormality in so this could be at least 1 possibly 2 vascular territories and of course pulmonary edema a in and she required aggressive BiPAP never had to be intubated and IV nitroglycerin titrate d the no to all respiratory comfort been using a blood pressure and point as well as and as a vaso dilator between the 2 she did extremely well diuresed respiratory effort greatly diminished he was very comfortable yesterday just 2 hours off the BiPAP started to become tachypneic again with diaphragmatic effort and no wheeze so clearly we were in done she went back on the BiPAP until this morning at 06:00 o'clock and she has been off it ever since doing very well blood pressure is I believe was a contributing issue because she has got at best a 30-35% residual ejection fraction definitely diminished systolic reserve and blood pressure is clearly an excessive afterload precipitating failure and we backed her off the IV nitroglycerin and because she has got chronic stage IV renal failure with creatinines approximately 3.5 in and seemingly plateauing we can not use Chan inhibitors or ARB he has but I did start her because of borderline hypokalemia on spironolactone so potassium needs to be monitored and I started her on Coreg currently she will be on 6.25 mg q.12 hourly and with the option if her blood pressure still remained excessive meaning greater than or equal to 150 I would consider really adding her nighttime amlodipine at 10 mg once a day and if we can bring her pressures down at systolic to between 135 and 145 in preserve renal function that would be sufficient for medication No evidence of recurrent ischemia and for now I would recommend maintaining the BiPAP I think for resting at night there is still question that she might have a no an upper airway issue in other words a and obstructive sleep apnea and we certainly do not want that to exacerbate the situation now and then of course if she needs on a p.r.n. basis during the day but here she fared very well with the nasal cannula Critical Care Time (minutes): 45 Physical Exam Vital Signs: Vital Signs: Last Vital Signs Temp 97.0 F 12/27/22 12:00 Pulse 84 12/27/22 15:00 Resp 27 H 12/27/22 15:00 BP 161/66 H 12/27/22 15:00 Pulse Ox 93 12/27/22 15:00 O2 Del Method Nasal Cannula 12/27/22 15:00 O2 Flow Rate 3 12/27/22 15:00 FiO2 35 12/27/22 08:00 Oxygen Flow Rate 6 12/24/22 06:55 BMI result Body Mass Index 36.2 She has good bilateral carotid upstrokes no bruits no gallops Awake alert nonfocal neurologically Lungs without adventitious sounds without diaphragmatic or accessory muscle effort Tolerating her diet abdomen is benign no again a megaly nontender Skin is intact but she still has a considerable peripheral fluid reservoir with bilateral leg edema primarily on the basis of venous insufficiency Objective Data Labs 12/27/22 10:06 12/27/22 05:27 Labs: Laboratory Results - last 24 hr 12/25/22 12/26/22 12/26/22 06:04 16:31 20:17 WBC RBC Hgb Hct MCV MCH MCHC RDW Plt Count MPV Immature Gran % (Auto) Neut % (Auto) Lymph % (Auto) [place] % (Auto) Eos % (Auto) Baso % (Auto) Lymph # (Auto) [place] # (Auto) Eos # (Auto) Baso # (Auto) Abs Immat Gran (auto) Absolute Neuts (auto) Absolute Nucleated RBC Nucleated RBC % (auto) VBG pH VBG pCO2 VBG pO2 VBG HCO3 VBG O2 Saturation VBG Base Excess Sodium Potassium Chloride Carbon Dioxide Anion Gap BUN Creatinine Estim Creat Clear Calc Estimated GFR POC Glucose 132 H 176 H Random Glucose Calcium Phosphorus Total Bilirubin AST ALT Alkaline Phosphatase Total Protein Albumin Blood Type A Positive Antibody Screen NEGATIVE Crossmatch See Detail 12/27/22 12/27/22 12/27/22 05:24 05:27 05:27 WBC 6.0 RBC 2.29 L Hgb 6.8 L* Hct 21.3 L MCV 93.0 MCH 29.7 MCHC 31.9 RDW 14.3 Plt Count 171 MPV 10.6 Immature Gran % (Auto) 0.7 H Neut % (Auto) 71.1 Lymph % (Auto) 16.6 L [place] % (Auto) 8.4 Eos % (Auto) 2.7 Baso % (Auto) 0.5 Lymph # (Auto) 1.0 L [place] # (Auto) 0.5 Eos # (Auto) 0.2 Baso # (Auto) 0.0 Abs Immat Gran (auto) 0.04 H Absolute Neuts (auto) 4.3 Absolute Nucleated RBC 0.000 Nucleated RBC % (auto) 0.0 VBG pH 7.45 H VBG pCO2 41 VBG pO2 73 VBG HCO3 29 H VBG O2 Saturation 95.0 VBG Base Excess 5.1 Sodium 142 Potassium 3.4 Chloride 105 Carbon Dioxide 27 Anion Gap 13 BUN 84 H Creatinine 3.29 H Estim Creat Clear Calc 16.2 Estimated GFR 13 POC Glucose Random Glucose 82 Calcium 8.4 D Phosphorus 4.7 H Total Bilirubin 0.5 AST 25 ALT 10 Alkaline Phosphatase 51 Total Protein 5.7 L Albumin 3.0 L Blood Type Antibody Screen Crossmatch 12/27/22 12/27/22 12/27/22 07:56 10:06 11:17 WBC 7.7 RBC 2.91 L D Hgb 8.9 L D Hct 27.7 L D MCV 95.2 MCH 30.6 MCHC 32.1 RDW 14.2 Plt Count 190 MPV 11.4 Immature Gran % (Auto) 0.5 H Neut % (Auto) 73.4 H Lymph % (Auto) 14.0 L [place] % (Auto) 8.7 Eos % (Auto) 2.8 Baso % (Auto) 0.6 Lymph # (Auto) 1.1 L [place] # (Auto) 0.7 Eos # (Auto) 0.2 Baso # (Auto) 0.1 Abs Immat Gran (auto) 0.04 H Absolute Neuts (auto) 5.7 Absolute Nucleated RBC 0.000 Nucleated RBC % (auto) 0.0 VBG pH VBG pCO2 VBG pO2 VBG HCO3 VBG O2 Saturation VBG Base Excess Sodium Potassium Chloride Carbon Dioxide Anion Gap BUN Creatinine Estim Creat Clear Calc Estimated GFR POC Glucose 111 131 H Random Glucose Calcium Phosphorus Total Bilirubin AST ALT Alkaline Phosphatase Total Protein Albumin Blood Type Antibody Screen Crossmatch Microbiology Microbiology Results: Microbiology 12/24/22 08:23 Blood - Venous Blood Culture - Final Coag negative Staphylococcus 12/24/22 07:43 Blood - Venous Blood Culture - Preliminary No growth after 48 hours. 12/24/22 Unknown Urine clean catch - Urine allen top Urine Culture - Final No growth. Progress Note: A&P Assessment and plan (1) Acute myocardial infarction of posterolateral wall: Status: Acute (2) Acute pulmonary edema: Status: Acute (3) Symptomatic anemia: Status: Acute (4) Acute respiratory failure with hypoxia: Status: Acute (5) Fecal incontinence: Status: Acute (6) Urinary incontinence: Status: Acute (7) CKD (chronic kidney disease): Status: Acute (8) B12 deficiency: Status: Acute (9) Diabetes: Status: Acute (10) Congestive heart failure: Status: Acute (11) Weakness: Status: Acute (12) Acute exacerbation of CHF (congestive heart failure): Status: Acute (13) Chest pain: Status: Acute (14) Guaiac + stool: Status: Acute (15) Acute kidney injury superimposed on chronic kidney disease: Status: Acute (16) Acute hyperkalemia: Status: Acute (17) Lumbar radiculopathy: Status: Acute (18) Low back pain at multiple sites: Status: Acute (19) Toe pain: Status: Acute (20) Back pain: Status: Acute (21) MRSA cellulitis: Status: Acute (22) MSSA bacteremia: Status: Acute (23) Gram-positive bacteremia: Status: Acute (24) Monoclonal gammopathies: Status: Acute (25) NAHID (acute kidney injury): Status: Acute (26) Anemia: Status: Acute (27) Femoral artery stenosis: Status: Acute (28) Lower extremity edema: Status: Acute (29) Psoriasis of scalp: Status: Inactive (30) PVD (peripheral vascular disease): Status: Acute Plan So she was a acute coronary syndrome resulting in in an infarct in the inferior lateral distribution possibly a persistent wall motion abnormality in the apical septal distribution as well which could be implying that was sitting on multi vessel disease in and we chose not to go the laboratory monitor were out because on heparin she dropped her hemoglobin without and distensible bleeding source therefore a poor candidate for an intervention with the amount of an ticoagulation she would need but if she were to have a recurrence of instability then I think we would have to heparinize ir and we would have to deal with bleed because it would be life in to have catheterization and stent placement etc. but right now stable and for the management of her failure reduced systolic reserve and the impediment of her elevated pressure a month titrating up on Cor eg currently 6.25 mg q.12 and spironolactone following her renal function and her potassium and consider adding amlodipine if need be to try to bring systolic pressures down between 135 and 145 empirically but I would also continue for now of because it has not caused this a problem maintenance Plavix and aspirin Quality Stroke Does the patient have a stroke diagnosis?: No VTE Prior VTE?: No VTE Risk Level:: Medical - moderate - high VTE Device Contraindication: Treatment Not Indicated VTE Drug Contraindication: N/A - Med Ordered
[2022-12-27 16:16] LABS: Glucose, Whole Blood 166 mg/dL (60-115)
[2022-12-27] MEDS: amLODIPine Besylate 10 MG TABLET PO (16:59)
[2022-12-27] MEDS: Spironolactone 25 MG TABLET PO (16:59)
[2022-12-27] MEDS: Insulin Lispro 100 UNIT/ML 3 ML VIAL SUBCUT (16:59)
[2022-12-27 21:04] LABS: Glucose, Whole Blood 145 mg/dL (60-115)
[2022-12-27] MEDS: Pregabalin 25 MG CAPSULE PO (21:27)
[2022-12-27] MEDS: Atorvastatin Calcium 40 MG TABLET PO (21:28)
[2022-12-27] MEDS: carvediloL 3.125 MG TABLET 6.25 MG PO (21:37)
[2022-12-27 22:29] LABS: Troponin-I High Sensitivity > 3600.0 ng/L (<3.5-17.0)
[2022-12-27] MEDS: Nitroglycerin 0.4 MG TAB.SUBL SUBLINGUAL (23:58)
[2022-12-28] VITALS (11 sets, daily range): BP systolic 146–159; BP diastolic 56–70; PULSE 53–79; RESP 18–22; TEMP 36–36.8; O2SAT 90–98
[2022-12-28 00:19] LABS: Hematocrit 26.2 % (37.0-47.0); Hemoglobin 8.5 g/dl (12.0-16.0); Mean Corpuscular HGB Conc 32.4 g/dl (31.0-35.0); Mean Corpuscular Hemoglobin 30.1 pg (27.0-33.0); Mean Corpuscular Volume 92.9 fL (80.0-98.0); Mean Platelet Volume 10.9 fL (9.4-12.3); Platelet Count 191 X10*3/uL (160-400); Red Blood Count 2.82 X10*6/uL (4.20-5.50); Red Cell Distribution Width 14.3 % (11.0-16.0); White Blood Count 8.2 X10*3/uL (4.8-10.8)
[2022-12-28 00:26] LABS: Prothrombin Time 10.9 SEC (10.0-13.1)
[2022-12-28 00:29] LABS: PTT Heparin Drip 27.7 SEC (53-77.9)
--- NOTE | 2022-12-28 00:43 | PM.EVENT ---
Event Note Date of Service: 12/28/22 Event Note: With complaints of midsternal chest pressure that is worsening this evening. Hemodynamically stable. EKG shows ST depressions in the lateral leads. Repeat troponin stool more than 36,000. given 1 nitroglycerin sublingual. Spoke to Cardiology, Will start her on nitroglycerin paste, and heparin drip. If remains to have chest pain, may need to be transferred to icu Time Spent With Patient Time: Total time managing care of this patient today ____ minutes.
[2022-12-28] MEDS: Heparin Sodium,Porcine/1/2NS 25,000 UNIT/250 ML IV.SOLN 14.67 UNIT IVCONT (01:02)
[2022-12-28 07:12] LABS: MANUAL DIFF FLAG NO
[2022-12-28 07:20] LABS: Basophils Percent Auto 0.6 % (0-2); Eosinophils Absolute Auto 0.3 X10*3/uL (0.0-0.4); Eosinophils Percent Auto 4.8 % (0-4); Hematocrit 24.9 % (37.0-47.0); Imm Gran Abs Auto 0.03 X10*3/uL (0.00-0.03); Imm Gran Pct Auto 0.4 % (0.0-0.4); Lymphocytes Absolute Auto 1.2 X10*3/uL (1.2-4.9); Lymphocytes Percent Auto 17.4 % (20-40); Mean Corpuscular HGB Conc 32.1 g/dl (31.0-35.0); Mean Corpuscular Volume 93.3 fL (80.0-98.0); Mean Platelet Volume 11.2 fL (9.4-12.3); Monocytes Absolute Auto 0.6 X10*3/uL (0.1-1.2); Monocytes Percent Auto 8.2 % (2-11); Neutrophils Absolute Auto 4.6 x10*3/uL (2.0-8.3); Neutrophils Percent Auto 68.6 % (45-73); Platelet Count 184 X10*3/uL (160-400); Red Blood Count 2.67 X10*6/uL (4.20-5.50); Red Cell Distribution Width 14.2 % (11.0-16.0); White Blood Count 6.7 X10*3/uL (4.8-10.8)
[2022-12-28 07:30] LABS: Glucose, Whole Blood 88 mg/dL (60-115)
[2022-12-28 07:30] LABS: Prothrombin Time 11.6 SEC (10.0-13.1)
[2022-12-28 07:33] LABS: PTT Heparin Drip 86.8 SEC (53-77.9)
--- NOTE | 2022-12-28 07:37 | PC.NURSE ---
pt alert and oriented x4, VSS as noted. Pt c/o chest tightness and pressure when asked about chest pain she kept referring to R knee pain. 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 MD immediately aware, labs, ecg, and meds done and heparin GTT started. Pt placed on her HS bipap and tolerated well. Pt given apap and heating pack for knee. upon reassessment pt stated pain resolved and no futher chest pressure.
[2022-12-28] MEDS: amLODIPine Besylate 10 MG TABLET PO (09:07)
[2022-12-28] MEDS: Clopidogrel Bisulfate 75 MG TABLET PO (09:07)
[2022-12-28] MEDS: Spironolactone 25 MG TABLET PO (09:07)
[2022-12-28] MEDS: Aspirin Enteric Coated 81 MG TABLET.DR PO (09:07)
[2022-12-28] MEDS: carvediloL 3.125 MG TABLET 6.25 MG PO (09:07)
[2022-12-28] MEDS: Nitroglycerin 0.1 MG PATCH.TD24 TRANSDERMA (09:08)
[2022-12-28] MEDS: 0.9 % Sodium Chloride Flush 3 ML SYRINGE IVFLUSH ×3 (09:08→22:12)
--- NOTE | 2022-12-28 10:08 | P.PNIM_ITS ---
Subjective Subjective Date of Service: 12/28/22 Interval History: Seen and evaluated this morning Feels better this morning, had chest pain night time and restarted on blood thinners Hb stable required BiPAP at night, on O2 3L with fair O2 sat stable Cr, remains elevated No other overnight events Review of Systems Review of Systems: Yes all other systems are reviewed and are negative Physical Exam Vital Signs: Vital Signs: Last Vital Signs Temp 98.1 F 12/28/22 08:00 Pulse 69 12/28/22 08:00 Resp 22 H 12/28/22 08:00 BP 156/56 H 12/28/22 08:00 Pulse Ox 93 12/28/22 08:00 O2 Del Method Nasal Cannula 12/28/22 08:00 O2 Flow Rate 3 12/28/22 08:00 FiO2 35 12/28/22 04:00 Oxygen Flow Rate 6 12/24/22 06:55 BMI result Body Mass Index 36.2 Const: Other: Constitutional : Awake, interactive, not in distress Neck : Normal inspection, Supple Cardiovascular : RRR, normal JVP, trace bilateral lower extremity edema Respiratory : fair bilateral air entry, no significant crackles Gastrointestinal: soft, lax, Normal bowel sounds, Non tender Skin : Warm, Dry Neurological : Alert & oriented to self place and time, No focal deficit Objective Data Active Medications Acetaminophen (Acetaminophen 325 Mg Tablet) 650 mg PO Q6H PRN PRN Reason: moderate pain Last Admin: 12/27/22 21:28 Dose: 650 mg Documented By: SALVATORE Amlodipine Besylate (Amlodipine Besylate 10 Mg Tablet) 10 mg PO DAILY [facility]; Protocol Last Admin: 12/28/22 09:07 Dose: 10 mg Documented By: MADISON Aspirin (Aspirin Enteric Coated 81 Mg Tablet.) 81 mg PO DAILY [facility] Last Admin: 12/28/22 09:07 Dose: 81 mg Documented By: MADISON Atorvastatin Calcium (Atorvastatin Calcium 40 Mg Tablet) 40 mg PO BEDTIME [facility] Last Admin: 12/27/22 21:28 Dose: 40 mg Documented By: SALVATORE Carvedilol (Carvedilol 3.125 Mg Tablet) 6.25 mg PO BID [facility]; Protocol Last Admin: 12/28/22 09:07 Dose: 6.25 mg Documented By: MADISON Clopidogrel Bisulfate (Clopidogrel Bisulfate 75 Mg Tablet) 75 mg PO DAILY [facility] Last Admin: 12/28/22 09:07 Dose: 75 mg Documented By: MADISON Heparin Sodium (Porcine) (Heparin Sodium,Porcine 5,000 Unit/Ml Vial) 4,200 unit 40 unit/kg (4200 unit) IVPUSH PROTOCOL BOLUS PRN; Protocol PRN Reason: 40 unit/kg - Heparin Protocol Heparin Sodium (Porcine) (Heparin Sodium,Porcine 5,000 Unit/Ml Vial) 8,400 unit 80 unit/kg (8400 unit) IVPUSH PROTOCOL BOLUS PRN; Protocol PRN Reason: 80 unit/kg - Heparin Protocol Heparin Sodium/Sodium Chloride (Heparin Sodium,Porcine/1/2ns) 25,000 unit in 250 mls @ 0 mls/hr IVCONT .Q0M [facility]; Protocol Last Titration: 12/28/22 08:43 Dose: 12 units/kg/hr, 12.58 mls/hr Documented By: MADISON Co-signed By: NELSY Insulin Human Lispro (Insulin Lispro 100 Unit/Ml 3 Ml Vial) 0 unit SUBCUT QIDACHS [facility]; Protocol Last Admin: 12/28/22 08:42 Dose: Not Given Documented By: MADISON Non-Admin Reason: No Insulin Coverage Nitroglycerin (Nitroglycerin 0.4 Mg Tab.Subl) 0.4 mg SUBLINGUAL [id number] PRN PRN Reason: chest pain Last Admin: 12/27/22 23:58 Dose: 0.4 mg Documented By: SALVATORE Comments: pt denies chest pain Nitroglycerin (Nitroglycerin 0.1 Mg Patch.Td24) 0.1 mg TRANSDERMA DAILY [facility]; Protocol Last Admin: 12/28/22 09:08 Dose: 0.1 mg Documented By: MADISON Pharmacy Consult (Consult Rx Perform Med Rec) 1 each MISCELLANE ONCE PRN PRN Reason: Consult order Pregabalin (Pregabalin 25 Mg Capsule) 25 mg PO BEDTIME [facility] Last Admin: 12/27/22 21:27 Dose: 25 mg Documented By: SALVATORE Sodium Chloride (0.9 % Sodium Chloride Flush 3 Ml Syringe) 3 ml IVFLUSH QSHIFT [facility] Last Admin: 12/28/22 09:08 Dose: 3 ml Documented By: MADISON Spironolactone (Spironolactone 25 Mg Tablet) 25 mg PO DAILY [facility]; Protocol Last Admin: 12/28/22 09:07 Dose: 25 mg Documented By: MADISON Labs 12/28/22 07:04 12/27/22 05:27 Labs: Laboratory Results - last 24 hr 12/27/22 12/27/22 12/27/22 10:06 11:17 16:12 MCV 95.2 MCH 30.6 MCHC 32.1 RDW 14.2 Plt Count 190 MPV 11.4 Immature Gran % (Auto) 0.5 H Neut % (Auto) 73.4 H Lymph % (Auto) 14.0 L [place] % (Auto) 8.7 Eos % (Auto) 2.8 Baso % (Auto) 0.6 Lymph # (Auto) 1.1 L [place] # (Auto) 0.7 Eos # (Auto) 0.2 Baso # (Auto) 0.1 Abs Immat Gran (auto) 0.04 H Absolute Neuts (auto) 5.7 Absolute Nucleated RBC 0.000 Nucleated RBC % (auto) 0.0 PT INR aPTT Heparin Protocol POC Glucose 131 H 166 H Troponin I High Sens 12/27/22 12/27/22 12/28/22 21:00 21:45 00:12 MCV 92.9 MCH 30.1 MCHC 32.4 RDW 14.3 Plt Count 191 MPV 10.9 Immature Gran % (Auto) Neut % (Auto) Lymph % (Auto) [place] % (Auto) Eos % (Auto) Baso % (Auto) Lymph # (Auto) [place] # (Auto) Eos # (Auto) Baso # (Auto) Abs Immat Gran (auto) Absolute Neuts (auto) Absolute Nucleated RBC 0.000 Nucleated RBC % (auto) 0.0 PT INR aPTT Heparin Protocol POC Glucose 145 H Troponin I High Sens > 3600.0 H* 12/28/22 12/28/22 12/28/22 00:12 07:04 07:04 MCV 93.3 Cancelled MCH 30.0 Cancelled MCHC 32.1 Cancelled RDW 14.2 Cancelled Plt Count 184 Cancelled MPV 11.2 Cancelled Immature Gran % (Auto) 0.4 Neut % (Auto) 68.6 Lymph % (Auto) 17.4 L [place] % (Auto) 8.2 Eos % (Auto) 4.8 H Baso % (Auto) 0.6 Lymph # (Auto) 1.2 [place] # (Auto) 0.6 Eos # (Auto) 0.3 Baso # (Auto) 0.0 Abs Immat Gran (auto) 0.03 Absolute Neuts (auto) 4.6 Absolute Nucleated RBC 0.000 Cancelled Nucleated RBC % (auto) 0.0 Cancelled PT 10.9 INR 1.0 aPTT Heparin Protocol 27.7 L D POC Glucose Troponin I High Sens 12/28/22 12/28/22 12/28/22 07:04 07:04 07:24 MCV MCH MCHC RDW Plt Count MPV Immature Gran % (Auto) Neut % (Auto) Lymph % (Auto) [place] % (Auto) Eos % (Auto) Baso % (Auto) Lymph # (Auto) [place] # (Auto) Eos # (Auto) Baso # (Auto) Abs Immat Gran (auto) Absolute Neuts (auto) Absolute Nucleated RBC Nucleated RBC % (auto) PT 11.6 INR 1.0 aPTT Heparin Protocol 86.8 H D POC Glucose 88 Troponin I High Sens Assessment and Plan (1) Acute myocardial infarction of posterolateral wall: Status: Acute (2) Acute pulmonary edema: Status: Acute (3) Symptomatic anemia: Status: Acute (4) Acute respiratory failure with hypoxia: Status: Acute Plan 82F PMH chronic hypoxic respiratory failure on 2L home o2, chronic diastolic ch f, CKD IV, obesity, HTN, HLD, preDM, presented with shortness of breath acute on chronic hypoxic respiratory failure due to acute on chronic diastolic chf improving On 3L O2 now, was on BiPAP at night Critical care team following if need of NTG drip and hypoxia management Acute coronary syndrome EKG showed lateral distribution, elevated Trop >3600 Dropped Hb while on heparin before, required transfusion. so she was not considered for intervention with high risk of bleeding with no clear source ECHO showed low EF Overnight developed chest pain, cardio recommended restarting Heparin drip On Coreg Aspirin, Plavix Statin cardio to approach with conservative measures Acute on chronic symptomatic anemia improved after transfusion negative occult stool stable at 10 monitor CBC after starting heparin NAHID on cKD IV suspect cardiorenal, stable monitor BMP obesity weight loss recomended chronic anemia monitor htn amlodipine hld statin dvt prophylaxis on iv heparin full code patient with ACS on heparin drip following H&H and improvement in clinical status Time Spent With Patient Time: Total time managing care of this patient today ____ minutes. Quality Stroke Does the patient have a stroke diagnosis?: No VTE Prior VTE?: No VTE Risk Level:: Medical - moderate - high VTE Device Contraindication: Treatment Not Indicated VTE Drug Contraindication: N/A - Med Ordered
[2022-12-28 12:08] LABS: Glucose, Whole Blood 115 mg/dL (60-115)
--- NOTE | 2022-12-28 12:15 | PM.PNCARD ---
Subjective Subjective Date of Service: 12/28/22 Principal diagnosis: NSTEMI Interval history: History was obtained with help of merchandising team lead. Two daughters are present at bedside. Patient had chest pressure last night with repeat troponin of greater than 3600. She was started on nitrates therapy. This morning she is not having any chest pressure. Also not have any significant shortness of breath compared to on admission. There was a question about further treatment options for her. As mention the past patient has poor overall functional status and has significant anemia with recent drop in hematocrit of unclear etiology and bleeding source. She has been restarted on IV heparin without bolus. No overnight arrhythmias. Review of Systems Constitutional: Reports lethargy and Reports weakness Eyes: Reports no additional eye complaints Cardiovascular: Reports chest pain at rest, Denies leg edema, Denies lightheadedness, Denies palpitations and Reports dyspnea Respiratory: Reports dyspnea Genitourinary: Reports no additional female genitourinary complaints Musculoskeletal: Reports no additional musculoskeletal complaints Reports system reviewed and no additional complaints, except as documented and Reports weakness Endocrine: Denies palpitations Physical Exam Vital Signs: Last Vital Signs Temp 98.1 F 12/28/22 08:00 Pulse 69 12/28/22 08:00 Resp 22 H 12/28/22 08:00 BP 156/56 H 12/28/22 08:00 Pulse Ox 93 12/28/22 08:00 O2 Del Method Nasal Cannula 12/28/22 08:00 O2 Flow Rate 3 12/28/22 08:00 FiO2 30 12/28/22 08:00 Oxygen Flow Rate 6 12/24/22 06:55 BMI result Body Mass Index 36.2 Const General: cooperative, no acute distress, alert, awake and ill appearing Nutritional Appearance: obese Orientation/consciousness: patient oriented x3 Neck Neck: Yes trachea midline, Yes supple and Yes no JVD Resp Effort & Inspection: decreased respiratory effort Auscultation: clear to auscultation bilaterally, no rales and diminished lung sounds Cardio Palpation: normal PMI Rate: regular rate Rhythm: regular rhythm Heart sounds: S1 normal heart sound present, S2 normal heart sound present, no click, no gallops and no murmurs GI Auscultation: normal bowel sounds Skin General skin exam: no rashes or lesions noted Neuro General: patient oriented x3 Objective Labs and Meds 12/28/22 07:04 12/27/22 05:27 Lab results: Laboratory Results - last 24 hr 12/27/22 12/27/22 12/27/22 16:12 21:00 21:45 WBC RBC Hgb Hct MCV MCH MCHC RDW Plt Count MPV Immature Gran % (Auto) Neut % (Auto) Lymph % (Auto) [place] % (Auto) Eos % (Auto) Baso % (Auto) Lymph # (Auto) [place] # (Auto) Eos # (Auto) Baso # (Auto) Abs Immat Gran (auto) Absolute Neuts (auto) Absolute Nucleated RBC Nucleated RBC % (auto) PT INR aPTT Heparin Protocol POC Glucose 166 H 145 H Troponin I High Sens > 3600.0 H* 12/28/22 12/28/22 12/28/22 00:12 00:12 07:04 WBC 8.2 6.7 RBC 2.82 L 2.67 L Hgb 8.5 L 8.0 L Hct 26.2 L 24.9 L MCV 92.9 93.3 MCH 30.1 30.0 MCHC 32.4 32.1 RDW 14.3 14.2 Plt Count 191 184 MPV 10.9 11.2 Immature Gran % (Auto) 0.4 Neut % (Auto) 68.6 Lymph % (Auto) 17.4 L [place] % (Auto) 8.2 Eos % (Auto) 4.8 H Baso % (Auto) 0.6 Lymph # (Auto) 1.2 [place] # (Auto) 0.6 Eos # (Auto) 0.3 Baso # (Auto) 0.0 Abs Immat Gran (auto) 0.03 Absolute Neuts (auto) 4.6 Absolute Nucleated RBC 0.000 0.000 Nucleated RBC % (auto) 0.0 0.0 PT 10.9 INR 1.0 aPTT Heparin Protocol 27.7 L D POC Glucose Troponin I High Sens 12/28/22 12/28/22 12/28/22 07:04 07:04 07:04 WBC Cancelled RBC Cancelled Hgb Cancelled Hct Cancelled MCV Cancelled MCH Cancelled MCHC Cancelled RDW Cancelled Plt Count Cancelled MPV Cancelled Immature Gran % (Auto) Neut % (Auto) Lymph % (Auto) [place] % (Auto) Eos % (Auto) Baso % (Auto) Lymph # (Auto) [place] # (Auto) Eos # (Auto) Baso # (Auto) Abs Immat Gran (auto) Absolute Neuts (auto) Absolute Nucleated RBC Cancelled Nucleated RBC % (auto) Cancelled PT 11.6 INR 1.0 aPTT Heparin Protocol 86.8 H D POC Glucose Troponin I High Sens 12/28/22 12/28/22 07:24 11:59 WBC RBC Hgb Hct MCV MCH MCHC RDW Plt Count MPV Immature Gran % (Auto) Neut % (Auto) Lymph % (Auto) [place] % (Auto) Eos % (Auto) Baso % (Auto) Lymph # (Auto) [place] # (Auto) Eos # (Auto) Baso # (Auto) Abs Immat Gran (auto) Absolute Neuts (auto) Absolute Nucleated RBC Nucleated RBC % (auto) PT INR aPTT Heparin Protocol POC Glucose 88 115 Troponin I High Sens Progress Note: A&P Assessment and plan (1) Acute myocardial infarction of posterolateral wall: Status: Acute Assessment and Plan: Patient with acute NM with recurrent post NM angina. She is currently angina free on nitrate therapy. Overall out of pulmonary edema at this point time. We discussed given that she has multiple comorbidities including acute bleeding and drop in hematocrit severe anemia as well as poor functional status overall in the long run and poor kidney function she is at high risk for any interventional therapy. Discussed with them about it and goals of therapy. They showed understanding but not sure as to how they want manage, at some point time day said do everything but at a time day say that the monitor try conservative medical therapy. Currently symptom-free although likelihood of recurrent angina as well as heart failure is extremely high. Risk of that as high. We discussed given her multiple comorbidities will treat her with medications and they are agreed. Will treat her day-to-day. Overall prognosis is guarded and grim. Would increase nitrates to 1 in q.6 hours to improve coronary blood flow and reduce preload. Also maximize carvedilol therapy. Continue other therapy for blood pressure. Currently does appear to be in overt heart failure. Continue supportive care. Continue IV heparin with trending hematocrit to make sure she has no further bleeding episodes that might complicate overall management. Patient says she does not want to be resuscitated. Should readdress her advanced directives. Will follow with you Time Spent With Patient Time: Total time managing care of this patient today ____ minutes. Progress Note: Quality Stroke Does the patient have a stroke diagnosis?: No Procedures Date of Service Date of Service: 12/28/22
[2022-12-28] MEDS: Nitroglycerin 2 % Oint 1 GM Packet 0.5 INCH TRANSDERMA ×3 (12:18→22:10)
[2022-12-28 12:38] LABS: Haptoglobin 251 mg/dL (43-212)
[2022-12-28 15:26] LABS: Hematocrit 25.5 % (37.0-47.0); Hemoglobin 8.1 g/dl (12.0-16.0); Mean Corpuscular HGB Conc 31.8 g/dl (31.0-35.0); Mean Corpuscular Hemoglobin 29.8 pg (27.0-33.0); Mean Corpuscular Volume 93.8 fL (80.0-98.0); Mean Platelet Volume 11.4 fL (9.4-12.3); Platelet Count 187 X10*3/uL (160-400); Red Blood Count 2.72 X10*6/uL (4.20-5.50); Red Cell Distribution Width 14.4 % (11.0-16.0); White Blood Count 7.9 X10*3/uL (4.8-10.8)
[2022-12-28 15:54] LABS: PTT Heparin Drip 93.6 SEC (53-77.9)
[2022-12-28 16:24] LABS: Glucose, Whole Blood 136 mg/dL (60-115)
[2022-12-28 17:01] LABS: Appearance Urine Cloudy; Color Urine Yellow; Glucose Urine UA Negative (Negative); Leukocyte Esterase Urine Large (3+) (Negative); Nitrite Urine Negative (Negative); PH 6.5 (5.0-9.0); Specific Gravity - Urine 1.015 (1.005-1.025); UMIC TRIGGER UA YES; Urine Blood Moderate (2+) (Negative); Urine Ketones Negative (Negative); Urine Protein 300 (3+) mg/dL (Neg-Trace)
[2022-12-28 17:18] LABS: Bacteria Urine 4+ (None Seen); Hyaline Casts Urine 0-2 /LPF (0-2); RBC Urine >20 /HPF (0-2); Squamous Epithelial Cell Urine 0-2 /HPF (0-2); WBC Urine >50 /HPF (0-5)
[2022-12-28] MEDS: Heparin Sodium,Porcine/1/2NS 25,000 UNIT/250 ML IV.SOLN 9.43 UNIT IVCONT (17:58)
[2022-12-28] MEDS: Acetaminophen 325 MG TABLET 650 MG PO (18:21)
[2022-12-28 20:57] LABS: Glucose, Whole Blood 144 mg/dL (60-115)
[2022-12-28 21:35] LABS: Hematocrit 24.9 % (37.0-47.0); Hemoglobin 8.1 g/dl (12.0-16.0); Mean Corpuscular HGB Conc 32.5 g/dl (31.0-35.0); Mean Corpuscular Hemoglobin 30.1 pg (27.0-33.0); Mean Corpuscular Volume 92.6 fL (80.0-98.0); Mean Platelet Volume 11.5 fL (9.4-12.3); Platelet Count 188 X10*3/uL (160-400); Red Blood Count 2.69 X10*6/uL (4.20-5.50); Red Cell Distribution Width 14.3 % (11.0-16.0); White Blood Count 7.7 X10*3/uL (4.8-10.8)
[2022-12-28] MEDS: Pregabalin 25 MG CAPSULE PO (22:02)
[2022-12-28] MEDS: Atorvastatin Calcium 40 MG TABLET PO (22:02)
[2022-12-28] MEDS: carvediloL 12.5 MG TABLET PO (22:03)
[2022-12-29] VITALS (10 sets, daily range): BP systolic 147–169; BP diastolic 64–80; PULSE 60–75; RESP 18–22; TEMP 36.1–37; O2SAT 93–96
[2022-12-29 00:17] LABS: PTT Heparin Drip 54.9 SEC (53-77.9)
[2022-12-29] MEDS: Nitroglycerin 2 % Oint 1 GM Packet 0.5 INCH TRANSDERMA ×4 (06:34→23:20)
[2022-12-29] MEDS: Acetaminophen 325 MG TABLET 650 MG PO (06:35)
[2022-12-29 06:53] LABS: Hematocrit 23.9 % (37.0-47.0); Hemoglobin 7.7 g/dl (12.0-16.0); Mean Corpuscular HGB Conc 32.2 g/dl (31.0-35.0); Mean Platelet Volume 11.5 fL (9.4-12.3); Platelet Count 177 X10*3/uL (160-400); Red Blood Count 2.57 X10*6/uL (4.20-5.50); Red Cell Distribution Width 14.1 % (11.0-16.0); White Blood Count 6.5 X10*3/uL (4.8-10.8)
[2022-12-29 07:13] LABS: PTT Heparin Drip 59.1 SEC (53-77.9)
[2022-12-29 07:14] LABS: Anion Gap 17 (12-20); Blood Urea Nitrogen 95 mg/dL (9-16); Calcium 8.5 mg/dL (8.4-10.2); Carbon Dioxide 23 mmol/L (22-29); Chloride 106 mmol/L (96-108); Creatinine Clr Calc Pharmacy 18.5; Estimated Glomerular Filt Rate 15; Glucose Random 91 mg/dL (60-115); Potassium 3.7 mmol/L (3.3-5.1); Sodium 142 mmol/L (135-145)
[2022-12-29 07:24] LABS: Glucose, Whole Blood 95 mg/dL (60-115)
[2022-12-29 08:37] LABS: B Type Natriuretic Peptide 1518 pg/mL (<100)
[2022-12-29] MEDS: 0.9 % Sodium Chloride Flush 3 ML SYRINGE IVFLUSH ×3 (09:53→20:51)
[2022-12-29] MEDS: Furosemide 40 MG/4 ML VIAL IVPUSH (09:53)
[2022-12-29] MEDS: Lidocaine 4 % Patch ADH..PATCH 1 PATCH TRANSDERMA (09:53)
[2022-12-29] MEDS: Aspirin Enteric Coated 81 MG TABLET.DR PO (09:54)
[2022-12-29] MEDS: amLODIPine Besylate 10 MG TABLET PO (09:54)
[2022-12-29] MEDS: carvediloL 12.5 MG TABLET PO ×2 (09:54→20:51)
[2022-12-29] MEDS: Spironolactone 25 MG TABLET PO (09:54)
[2022-12-29] MEDS: Clopidogrel Bisulfate 75 MG TABLET PO (09:54)
--- NOTE | 2022-12-29 10:00 | P.PNIM_ITS ---
Subjective Subjective Date of Service: 12/29/22 Interval History: Seen and evaluated this morning Feels better ,no recurrence of chest pain Hb dropped below 8 with no overt bleeding required BiPAP at night for short period, on O2 3L with fair O2 sat stable Cr No other overnight events Review of Systems Review of Systems: Yes all other systems are reviewed and are negative Physical Exam Vital Signs: Vital Signs: Last Vital Signs Temp 97.9 F 12/29/22 07:58 Pulse 60 12/29/22 07:58 Resp 22 H 12/29/22 07:58 BP 147/68 H 12/29/22 07:58 Pulse Ox 94 12/29/22 07:58 O2 Del Method Nasal Cannula 12/29/22 07:58 O2 Flow Rate 3 12/29/22 07:58 FiO2 35 12/28/22 23:44 Oxygen Flow Rate 6 12/24/22 06:55 BMI result Body Mass Index 36.2 Const: Other: Constitutional : Awake, interactive, not in distress Neck : Normal inspection, Supple Cardiovascular : RRR, elevaated JVP, +1 bilateral lower extremity edema Respiratory : fair bilateral air entry, no significant crackles Gastrointestinal: soft, lax, Normal bowel sounds, Non tender Skin : Warm, Dry Neurological : Alert & oriented to self place and time, No focal deficit Objective Data Active Medications Acetaminophen (Acetaminophen 325 Mg Tablet) 650 mg PO Q6H PRN PRN Reason: moderate pain Last Admin: 12/29/22 06:35 Dose: 650 mg Documented By: SALVATORE Amlodipine Besylate (Amlodipine Besylate 10 Mg Tablet) 10 mg PO DAILY [facility]; Protocol Last Admin: 12/29/22 09:54 Dose: 10 mg Documented By: MADISON Aspirin (Aspirin Enteric Coated 81 Mg Tablet.) 81 mg PO DAILY [facility] Last Admin: 12/29/22 09:54 Dose: 81 mg Documented By: MADISON Atorvastatin Calcium (Atorvastatin Calcium 40 Mg Tablet) 40 mg PO BEDTIME [facility] Last Admin: 12/28/22 22:02 Dose: 40 mg Documented By: SALVATORE Carvedilol (Carvedilol 12.5 Mg Tablet) 12.5 mg PO BID [facility]; Protocol Last Admin: 12/29/22 09:54 Dose: 12.5 mg Documented By: MADISON Clopidogrel Bisulfate (Clopidogrel Bisulfate 75 Mg Tablet) 75 mg PO DAILY [facility] Last Admin: 12/29/22 09:54 Dose: 75 mg Documented By: MADISON Furosemide (Furosemide 40 Mg/4 Ml Vial) 40 mg IVPUSH DAILY [facility]; Protocol Last Admin: 12/29/22 09:53 Dose: 40 mg Documented By: MADISON Heparin Sodium (Porcine) (Heparin Sodium,Porcine 5,000 Unit/Ml Vial) 4,200 unit 40 unit/kg (4200 unit) IVPUSH PROTOCOL BOLUS PRN; Protocol PRN Reason: 40 unit/kg - Heparin Protocol Heparin Sodium (Porcine) (Heparin Sodium,Porcine 5,000 Unit/Ml Vial) 8,400 unit 80 unit/kg (8400 unit) IVPUSH PROTOCOL BOLUS PRN; Protocol PRN Reason: 80 unit/kg - Heparin Protocol Heparin Sodium/Sodium Chloride (Heparin Sodium,Porcine/1/2ns) 25,000 unit in 250 mls @ 0 mls/hr IVCONT .Q0M [facility]; Protocol Last Titration: 12/29/22 07:20 Dose: 9 units/kg/hr, 9.43 mls/hr Documented By: MADISON Co-signed By: GARO Insulin Human Lispro (Insulin Lispro 100 Unit/Ml 3 Ml Vial) 0 unit SUBCUT QIDACHS [facility]; Protocol Last Admin: 12/29/22 07:48 Dose: Not Given Documented By: MADISON Non-Admin Reason: No Insulin Coverage Lidocaine (Lidocaine 4 % Patch Adh..Patch) 1 patch TRANSDERMA DAILY [facility]; Protocol Last Admin: 12/29/22 09:53 Dose: 1 patch Documented By: MADISON Nitroglycerin (Nitroglycerin 0.4 Mg Tab.Subl) 0.4 mg SUBLINGUAL Q5MX3 PRN PRN Reason: chest pain Last Admin: 12/27/22 23:58 Dose: 0.4 mg Documented By: SALVATORE Comments: pt denies chest pain Nitroglycerin (Nitroglycerin 2 % Oint 1 Gm Packet) 0.5 inch TRANSDERMA Q6H [facility]; Protocol Last Admin: 12/29/22 06:34 Dose: 0.5 inch Documented By: SALVATORE Pharmacy Consult (Consult Rx Perform Med Rec) 1 each MISCELLANE ONCE PRN PRN Reason: Consult order Pregabalin (Pregabalin 25 Mg Capsule) 25 mg PO BEDTIME [facility] Last Admin: 12/28/22 22:02 Dose: 25 mg Documented By: SALVATORE Sodium Chloride (0.9 % Sodium Chloride Flush 3 Ml Syringe) 3 ml IVFLUSH QSHIFT [facility] Last Admin: 12/29/22 09:53 Dose: 3 ml Documented By: MADISON Spironolactone (Spironolactone 25 Mg Tablet) 25 mg PO DAILY [facility]; Protocol Last Admin: 12/29/22 09:54 Dose: 25 mg Documented By: MADISON Labs 12/29/22 06:11 12/29/22 06:11 Labs: Laboratory Results - last 24 hr 12/25/22 12/28/22 12/28/22 06:04 11:59 15:04 MCV MCH MCHC RDW Plt Count MPV Absolute Nucleated RBC Nucleated RBC % (auto) Haptoglobin 251 H aPTT Heparin Protocol 93.6 H Anion Gap Estim Creat Clear Calc Estimated GFR POC Glucose 115 Random Glucose Calcium Troponin I High Sens B-Natriuretic Peptide Urine Color Urine Appearance Urine pH Ur Specific [place] Urine Protein Urine Glucose (UA) Urine Ketones Urine Blood Urine Nitrite Ur Leukocyte Esterase Urine RBC Urine WBC Ur Squamous Epith Cells Urine Bacteria Hyaline Casts 12/28/22 12/28/22 12/28/22 15:04 16:18 16:50 MCV 93.8 MCH 29.8 MCHC 31.8 RDW 14.4 Plt Count 187 MPV 11.4 Absolute Nucleated RBC 0.000 Nucleated RBC % (auto) 0.0 Haptoglobin aPTT Heparin Protocol Anion Gap Estim Creat Clear Calc Estimated GFR POC Glucose 136 H Random Glucose Calcium Troponin I High Sens B-Natriuretic Peptide Urine Color Yellow Urine Appearance Cloudy Urine pH 6.5 Ur Specific [place] 1.015 Urine Protein 300 (3+) H Urine Glucose (UA) Negative Urine Ketones Negative Urine Blood Moderate (2+) H Urine Nitrite Negative Ur Leukocyte Esterase Large (3+) H Urine RBC >20 H Urine WBC >50 H Ur Squamous Epith Cells 0-2 Urine Bacteria 4+ Hyaline Casts 0-2 12/28/22 12/28/22 12/28/22 20:47 21:03 23:10 MCV 92.6 MCH 30.1 MCHC 32.5 RDW 14.3 Plt Count 188 MPV 11.5 Absolute Nucleated RBC 0.000 Nucleated RBC % (auto) 0.0 Haptoglobin aPTT Heparin Protocol 54.9 D Anion Gap Estim Creat Clear Calc Estimated GFR POC Glucose 144 H Random Glucose Calcium Troponin I High Sens B-Natriuretic Peptide Urine Color Urine Appearance Urine pH Ur Specific [place] Urine Protein Urine Glucose (UA) Urine Ketones Urine Blood Urine Nitrite Ur Leukocyte Esterase Urine RBC Urine WBC Ur Squamous Epith Cells Urine Bacteria Hyaline Casts 12/29/22 12/29/22 12/29/22 06:11 06:11 06:11 MCV 93.0 MCH 30.0 MCHC 32.2 RDW 14.1 Plt Count 177 MPV 11.5 Absolute Nucleated RBC 0.000 Nucleated RBC % (auto) 0.0 Haptoglobin aPTT Heparin Protocol 59.1 Anion Gap 17 Estim Creat Clear Calc 18.5 Estimated GFR 15 POC Glucose Random Glucose 91 Calcium 8.5 Troponin I High Sens B-Natriuretic Peptide Urine Color Urine Appearance Urine pH Ur Specific [place] Urine Protein Urine Glucose (UA) Urine Ketones Urine Blood Urine Nitrite Ur Leukocyte Esterase Urine RBC Urine WBC Ur Squamous Epith Cells Urine Bacteria Hyaline Casts 12/29/22 12/29/22 12/29/22 06:11 07:15 08:05 MCV MCH MCHC RDW Plt Count MPV Absolute Nucleated RBC Nucleated RBC % (auto) Haptoglobin aPTT Heparin Protocol Anion Gap Estim Creat Clear Calc Estimated GFR POC Glucose 95 Random Glucose Calcium Troponin I High Sens 3199.0 H* B-Natriuretic Peptide 1518 H Urine Color Urine Appearance Urine pH Ur Specific [place] Urine Protein Urine Glucose (UA) Urine Ketones Urine Blood Urine Nitrite Ur Leukocyte Esterase Urine RBC Urine WBC Ur Squamous Epith Cells Urine Bacteria Hyaline Casts Microbiology Microbiology Results: Microbiology 12/24/22 07:43 Blood Culture - Final Blood - Venous No growth after 5 days. Assessment and Plan (1) Acute myocardial infarction of posterolateral wall: Status: Acute (2) Acute respiratory failure with hypoxia: Status: Acute Plan 82F PMH chronic hypoxic respiratory failure on 2L home o2, chronic diastolic chf, CKD IV, obesity, HTN, HLD, preDM, presented with shortness of breath acute on chronic hypoxic respiratory failure due to acute on chronic diastolic chf improving On 3L O2 now, was on BiPAP at night Start IV lasix wean O2 down as tolerated Acute coronary syndrome EKG showed lateral distribution, elevated Trop at 3100 Dropped Hb while on heparin before, required transfusion. so she was not considered for intervention with high risk of bleeding with no clear source Currently no chest pain but risk of recurrent angina and heart failure still high.? ECHO showed low EF cardio to approach with conservative measures and hold on intervention, family on board on Heparin drip On Coreg Aspirin, Plavix Statin Family to consider outpatient further work up and intervention after this hospital stay Acute on chronic symptomatic anemia dropped to 7.7 No overt bleeding Transfuse 1 unit of blood monitor CBC after starting heparin NAHID on cKD IV improved but not back to baseline, stable monitor BMP obesity weight loss recomended chronic anemia monitor htn amlodipine hld statin dvt prophylaxis on iv heparin full code patient with ACS on heparin drip following H&H and improvement in clinical status Time Spent With Patient Time: Total time managing care of this patient today ____ minutes. Quality Stroke Does the patient have a stroke diagnosis?: No VTE Prior VTE?: No VTE Risk Level:: Medical - moderate - high VTE Device Contraindication: Treatment Not Indicated VTE Drug Contraindication: N/A - Med Ordered
--- NOTE | 2022-12-29 11:34 | PM.PNCARD ---
Subjective Subjective Date of Service: 12/29/22 Principal diagnosis: NSTEMI Interval history: Patient denies any symptoms. Says not having any trouble breathing. No overnight chest pressure. However still remains anemic but no significant drop in hematocrit. Tolerating IV heparin. Troponin is down trending. BNP significantly elevated at 1518 Review of Systems Constitutional: Reports lethargy Eyes: Reports no additional eye complaints Cardiovascular: Denies chest pain, Reports leg edema, Denies lightheadedness, Denies Loss of Consciousness, Denies palpitations and Reports dyspnea Respiratory: Reports no additional respiratory complaints and Reports dyspnea Gastrointestinal: Reports no additional gastrointestinal complaints Endocrine: Denies palpitations Physical Exam Vital Signs: Last Vital Signs Temp 97.9 F 12/29/22 07:58 Pulse 60 12/29/22 07:58 Resp 22 H 12/29/22 07:58 BP 147/68 H 12/29/22 07:58 Pulse Ox 94 12/29/22 07:58 O2 Del Method Nasal Cannula 12/29/22 07:58 O2 Flow Rate 3 12/29/22 07:58 FiO2 35 12/28/22 23:44 Oxygen Flow Rate 6 12/24/22 06:55 BMI result Body Mass Index 36.2 Const General: cooperative, no acute distress, alert, awake and ill appearing Nutritional Appearance: obese Orientation/consciousness: patient oriented x3 Neck Neck: Yes trachea midline, Yes supple and Yes no JVD Resp Effort & Inspection: decreased respiratory effort Auscultation: clear to auscultation bilaterally, crackles and diminished lung sounds Cardio Palpation: normal PMI Rate: regular rate Rhythm: regular rhythm Heart sounds: S1 normal heart sound present, S2 normal heart sound present, no click, no gallops and no murmurs GI Auscultation: normal bowel sounds Skin General skin exam: no rashes or lesions noted Neuro General: patient oriented x3 Objective Labs and Meds 12/29/22 06:11 12/29/22 06:11 Lab results: Laboratory Results - last 24 hr 12/25/22 12/28/22 12/28/22 06:04 11:59 15:04 WBC RBC Hgb Hct MCV MCH MCHC RDW Plt Count MPV Absolute Nucleated RBC Nucleated RBC % (auto) Haptoglobin 251 H aPTT Heparin Protocol 93.6 H Sodium Potassium Chloride Carbon Dioxide Anion Gap BUN Creatinine Estim Creat Clear Calc Estimated GFR POC Glucose 115 Random Glucose Calcium Troponin I High Sens B-Natriuretic Peptide Urine Color Urine Appearance Urine pH Ur Specific [place] Urine Protein Urine Glucose (UA) Urine Ketones Urine Blood Urine Nitrite Ur Leukocyte Esterase Urine RBC Urine WBC Ur Squamous Epith Cells Urine Bacteria Hyaline Casts Blood Type Antibody Screen Crossmatch 12/28/22 12/28/22 12/28/22 15:04 16:18 16:50 WBC 7.9 RBC 2.72 L Hgb 8.1 L Hct 25.5 L MCV 93.8 MCH 29.8 MCHC 31.8 RDW 14.4 Plt Count 187 MPV 11.4 Absolute Nucleated RBC 0.000 Nucleated RBC % (auto) 0.0 Haptoglobin aPTT Heparin Protocol Sodium Potassium Chloride Carbon Dioxide Anion Gap BUN Creatinine Estim Creat Clear Calc Estimated GFR POC Glucose 136 H Random Glucose Calcium Troponin I High Sens B-Natriuretic Peptide Urine Color Yellow Urine Appearance Cloudy Urine pH 6.5 Ur Specific [place] 1.015 Urine Protein 300 (3+) H Urine Glucose (UA) Negative Urine Ketones Negative Urine Blood Moderate (2+) H Urine Nitrite Negative Ur Leukocyte Esterase Large (3+) H Urine RBC >20 H Urine WBC >50 H Ur Squamous Epith Cells 0-2 Urine Bacteria 4+ Hyaline Casts 0-2 Blood Type Antibody Screen Crossmatch 12/28/22 12/28/22 12/28/22 20:47 21:03 23:10 WBC 7.7 RBC 2.69 L Hgb 8.1 L Hct 24.9 L MCV 92.6 MCH 30.1 MCHC 32.5 RDW 14.3 Plt Count 188 MPV 11.5 Absolute Nucleated RBC 0.000 Nucleated RBC % (auto) 0.0 Haptoglobin aPTT Heparin Protocol 54.9 D Sodium Potassium Chloride Carbon Dioxide Anion Gap BUN Creatinine Estim Creat Clear Calc Estimated GFR POC Glucose 144 H Random Glucose Calcium Troponin I High Sens B-Natriuretic Peptide Urine Color Urine Appearance Urine pH Ur Specific [place] Urine Protein Urine Glucose (UA) Urine Ketones Urine Blood Urine Nitrite Ur Leukocyte Esterase Urine RBC Urine WBC Ur Squamous Epith Cells Urine Bacteria Hyaline Casts Blood Type Antibody Screen Crossmatch 12/29/22 12/29/22 12/29/22 06:11 06:11 06:11 WBC 6.5 RBC 2.57 L Hgb 7.7 L Hct 23.9 L MCV 93.0 MCH 30.0 MCHC 32.2 RDW 14.1 Plt Count 177 MPV 11.5 Absolute Nucleated RBC 0.000 Nucleated RBC % (auto) 0.0 Haptoglobin aPTT Heparin Protocol 59.1 Sodium 142 Potassium 3.7 Chloride 106 Carbon Dioxide 23 Anion Gap 17 BUN 95 H Creatinine 2.91 H Estim Creat Clear Calc 18.5 Estimated GFR 15 POC Glucose Random Glucose 91 Calcium 8.5 Troponin I High Sens B-Natriuretic Peptide Urine Color Urine Appearance Urine pH Ur Specific [place] Urine Protein Urine Glucose (UA) Urine Ketones Urine Blood Urine Nitrite Ur Leukocyte Esterase Urine RBC Urine WBC Ur Squamous Epith Cells Urine Bacteria Hyaline Casts Blood Type Antibody Screen Crossmatch 12/29/22 12/29/22 12/29/22 06:11 07:15 08:05 WBC RBC Hgb Hct MCV MCH MCHC RDW Plt Count MPV Absolute Nucleated RBC Nucleated RBC % (auto) Haptoglobin aPTT Heparin Protocol Sodium Potassium Chloride Carbon Dioxide Anion Gap BUN Creatinine Estim Creat Clear Calc Estimated GFR POC Glucose 95 Random Glucose Calcium Troponin I High Sens 3199.0 H* B-Natriuretic Peptide 1518 H Urine Color Urine Appearance Urine pH Ur Specific [place] Urine Protein Urine Glucose (UA) Urine Ketones Urine Blood Urine Nitrite Ur Leukocyte Esterase Urine RBC Urine WBC Ur Squamous Epith Cells Urine Bacteria Hyaline Casts Blood Type Antibody Screen Crossmatch 12/29/22 10:29 WBC RBC Hgb Hct MCV MCH MCHC RDW Plt Count MPV Absolute Nucleated RBC Nucleated RBC % (auto) Haptoglobin aPTT Heparin Protocol Sodium Potassium Chloride Carbon Dioxide Anion Gap BUN Creatinine Estim Creat Clear Calc Estimated GFR POC Glucose Random Glucose Calcium Troponin I High Sens B-Natriuretic Peptide Urine Color Urine Appearance Urine pH Ur Specific [place] Urine Protein Urine Glucose (UA) Urine Ketones Urine Blood Urine Nitrite Ur Leukocyte Esterase Urine RBC Urine WBC Ur Squamous Epith Cells Urine Bacteria Hyaline Casts Blood Type A Positive Antibody Screen NEGATIVE Crossmatch See Detail Progress Note: A&P Assessment and plan (1) Acute myocardial infarction of posterolateral wall: Status: Acute Assessment and Plan: Patient with acute myocardial infarction what appears to be of the posterior/inferior wall in the circumflex territory. Currently symptom-free on current medical therapy. Continue maximize medical therapy. Continue nitrates as well as beta-blockers and amlodipine. Continue aspirin, statins. IV heparin 1st total of 72 hours. Continue to trend hematocrit. Has significant drop in hematocrit should stop IV heparin. Overall prognosis is very guarded. She has multiple comorbidities including advanced age, poor functional status, advanced kidney disease, unknown source of bleeding with drop in hematocrit and chronic anemia. Management will be conservative at this point time. Patient and patient's family understand agree. She is doing better at this point in time but still critically ill. (2) Acute exacerbation of CHF (congestive heart failure): Status: Acute Assessment and Plan: Clinically appears to be in mild heart failure. I would consider gently diuresing her. Continue treatment for cardiac ischemia as above. Continue oxygen therapy. If needed CPAP therapy. Maintain hematocrit over 30. Consider transfusion of 1 packed unit. Followed with Lasix. Strict intake and output chart needs to be pursued. Will continue to follow with you Time Spent With Patient Time: Total time managing care of this patient today ____ minutes. Progress Note: Quality Stroke Does the patient have a stroke diagnosis?: No Procedures Date of Service Date of Service: 12/29/22
[2022-12-29 12:00] LABS: Glucose, Whole Blood 146 mg/dL (60-115)
[2022-12-29 16:13] LABS: Glucose, Whole Blood 149 mg/dL (60-115)
[2022-12-29] MEDS: Heparin Sodium,Porcine/1/2NS 25,000 UNIT/250 ML IV.SOLN 9.43 UNIT IVCONT (17:24)
[2022-12-29 19:35] LABS: Glucose, Whole Blood 139 mg/dL (60-115)
[2022-12-29] MEDS: Pregabalin 25 MG CAPSULE PO (20:49)
[2022-12-29] MEDS: Atorvastatin Calcium 40 MG TABLET PO (20:49)
[2022-12-30] VITALS (9 sets, daily range): BP systolic 135–170; BP diastolic 60–74; PULSE 54–88; RESP 18–20; TEMP 36.2–36.7; O2SAT 92–100
[2022-12-30] MEDS: Nitroglycerin 2 % Oint 1 GM Packet 0.5 INCH TRANSDERMA ×4 (04:53→22:52)
[2022-12-30 06:55] LABS: Hematocrit 26.4 % (37.0-47.0); Hemoglobin 8.6 g/dl (12.0-16.0); Mean Corpuscular HGB Conc 32.6 g/dl (31.0-35.0); Mean Corpuscular Hemoglobin 29.6 pg (27.0-33.0); Mean Corpuscular Volume 90.7 fL (80.0-98.0); Mean Platelet Volume 11.6 fL (9.4-12.3); Platelet Count 190 X10*3/uL (160-400); Red Blood Count 2.91 X10*6/uL (4.20-5.50); Red Cell Distribution Width 16.1 % (11.0-16.0); White Blood Count 6.6 X10*3/uL (4.8-10.8)
[2022-12-30 07:06] LABS: PTT Heparin Drip 55.6 SEC (53-77.9)
[2022-12-30 07:43] LABS: Anion Gap 18 (12-20); Blood Urea Nitrogen 100 mg/dL (9-16); Calcium 8.7 mg/dL (8.4-10.2); Carbon Dioxide 22 mmol/L (22-29); Chloride 106 mmol/L (96-108); Creatinine Clr Calc Pharmacy 18.6; Estimated Glomerular Filt Rate 16; Glucose Random 86 mg/dL (60-115); Potassium 3.9 mmol/L (3.3-5.1); Sodium 142 mmol/L (135-145)
[2022-12-30] MEDS: Lidocaine 4 % Patch ADH..PATCH 1 PATCH TRANSDERMA (08:14)
[2022-12-30] MEDS: Aspirin Enteric Coated 81 MG TABLET.DR PO (08:16)
[2022-12-30] MEDS: Spironolactone 25 MG TABLET PO (08:18)
[2022-12-30] MEDS: Clopidogrel Bisulfate 75 MG TABLET PO (08:18)
[2022-12-30] MEDS: amLODIPine Besylate 10 MG TABLET PO (08:18)
[2022-12-30] MEDS: Furosemide 40 MG/4 ML VIAL IVPUSH ×2 (08:21→17:56)
[2022-12-30] MEDS: carvediloL 12.5 MG TABLET PO ×2 (08:26→22:50)
[2022-12-30] MEDS: 0.9 % Sodium Chloride Flush 3 ML SYRINGE IVFLUSH ×2 (08:27→22:49)
--- NOTE | 2022-12-30 10:21 | MHC.CM.PN ---
Per ROUNDS discussion, Patient is not yet medically cleared for dc (Heparin Drip); home/resume services is the goal and CM will continue to follow.
--- NOTE | 2022-12-30 10:57 | HO.PM.IMPN ---
Subjective Subjective Date of Service: 12/30/22 Interval History: Seen and evaluated this morning Feels better ,no recurrence of chest pain Hb stable above 8 with no overt bleeding after 1 unit transfusion required BiPAP at night, on O2 3L with fair O2 sat stable Cr No other overnight events Review of Systems Review of Systems: Yes all other systems are reviewed and are negative Physical Exam Vital Signs: Vital Signs: Last Vital Signs Temp 97.6 F 12/30/22 07:46 Pulse 54 12/30/22 07:46 Resp 20 12/30/22 07:46 BP 135/71 12/30/22 07:46 Pulse Ox 100 12/30/22 07:46 O2 Del Method CPAP 12/30/22 07:46 O2 Flow Rate 30 12/30/22 07:46 FiO2 35 12/30/22 04:00 Oxygen Flow Rate 6 12/24/22 06:55 BMI result Body Mass Index 36.2 Const: Other: Constitutional : Awake, interactive, not in distress Neck : Normal inspection, Supple Cardiovascular : RRR, elevaated JVP, +2 bilateral lower extremity edema Respiratory : fair bilateral air entry, no significant crackles Gastrointestinal: soft, lax, Normal bowel sounds, Non tender Skin : Warm, Dry Neurological : Alert & oriented to self place and time, No focal deficit Objective Data Active Medications Acetaminophen (Acetaminophen 325 Mg Tablet) 650 mg PO Q6H PRN PRN Reason: moderate pain Last Admin: 12/29/22 06:35 Dose: 650 mg Documented By: SALVATORE Amlodipine Besylate (Amlodipine Besylate 10 Mg Tablet) 10 mg PO DAILY [facility]; Protocol Last Admin: 12/30/22 08:18 Dose: 10 mg Documented By: CRISELDA Aspirin (Aspirin Enteric Coated 81 Mg Tablet.) 81 mg PO DAILY [facility] Last Admin: 12/30/22 08:16 Dose: 81 mg Documented By: CRISELDA Atorvastatin Calcium (Atorvastatin Calcium 40 Mg Tablet) 40 mg PO BEDTIME [facility] Last Admin: 12/29/22 20:49 Dose: 40 mg Documented By: KELLIE Carvedilol (Carvedilol 12.5 Mg Tablet) 12.5 mg PO BID [facility]; Protocol Last Admin: 12/30/22 08:26 Dose: 12.5 mg Documented By: CRISELDA Clopidogrel Bisulfate (Clopidogrel Bisulfate 75 Mg Tablet) 75 mg PO DAILY [facility] Last Admin: 12/30/22 08:18 Dose: 75 mg Documented By: CRISELDA Furosemide (Furosemide 40 Mg/4 Ml Vial) 40 mg IVPUSH BID@0900,1800 [facility]; Protocol Heparin Sodium (Porcine) (Heparin Sodium,Porcine 5,000 Unit/Ml Vial) 4,200 unit 40 unit/kg (4200 unit) IVPUSH PROTOCOL BOLUS PRN; Protocol PRN Reason: 40 unit/kg - Heparin Protocol Heparin Sodium (Porcine) (Heparin Sodium,Porcine 5,000 Unit/Ml Vial) 8,400 unit 80 unit/kg (8400 unit) IVPUSH PROTOCOL BOLUS PRN; Protocol PRN Reason: 80 unit/kg - Heparin Protocol Heparin Sodium/Sodium Chloride (Heparin Sodium,Porcine/1/2ns) 25,000 unit in 250 mls @ 0 mls/hr IVCONT .Q0M [facility]; Protocol Last Admin: 12/29/22 17:24 Dose: 9 units/kg/hr, 9.43 mls/hr Documented By: MADISON Co-signed By: NELSY Insulin Human Lispro (Insulin Lispro 100 Unit/Ml 3 Ml Vial) 0 unit SUBCUT QIDACHS [facility]; Protocol Last Admin: 12/30/22 08:27 Dose: Not Given Documented By: CRISELDA Non-Admin Reason: No Insulin Coverage Lidocaine (Lidocaine 4 % Patch Adh..Patch) 1 patch TRANSDERMA DAILY [facility]; Protocol Last Admin: 12/30/22 08:14 Dose: 1 patch Documented By: CRISELDA Nitroglycerin (Nitroglycerin 0.4 Mg Tab.Subl) 0.4 mg SUBLINGUAL Q5MX3 PRN PRN Reason: chest pain Last Admin: 12/27/22 23:58 Dose: 0.4 mg Documented By: SALVATORE Comments: pt denies chest pain Nitroglycerin (Nitroglycerin 2 % Oint 1 Gm Packet) 0.5 inch TRANSDERMA Q6H [facility]; Protocol Last Admin: 12/30/22 04:53 Dose: 0.5 inch Documented By: KELLIE Pharmacy Consult (Consult Rx Perform Med Rec) 1 each MISCELLANE ONCE PRN PRN Reason: Consult order Pregabalin (Pregabalin 25 Mg Capsule) 25 mg PO BEDTIME [facility] Last Admin: 12/29/22 20:49 Dose: 25 mg Documented By: KELLIE Sodium Chloride (0.9 % Sodium Chloride Flush 3 Ml Syringe) 3 ml IVFLUSH QSHIFT [place] Last Admin: 12/30/22 08:27 Dose: 3 ml Documented By: CRISELDA Spironolactone (Spironolactone 25 Mg Tablet) 25 mg PO DAILY [facility]; Protocol Last Admin: 12/30/22 08:18 Dose: 25 mg Documented By: CRISELDA Labs 12/30/22 06:10 12/30/22 06:10 Labs: Laboratory Results - last 24 hr 12/29/22 12/29/22 12/29/22 10:29 11:52 16:08 MCV MCH MCHC RDW Plt Count MPV Absolute Nucleated RBC Nucleated RBC % (auto) aPTT Heparin Protocol Anion Gap Estim Creat Clear Calc Estimated GFR POC Glucose 146 H 149 H Random Glucose Calcium Blood Type A Positive Antibody Screen NEGATIVE Crossmatch See Detail 12/29/22 12/30/22 12/30/22 19:28 06:10 06:10 MCV 90.7 MCH 29.6 MCHC 32.6 RDW 16.1 H Plt Count 190 MPV 11.6 Absolute Nucleated RBC 0.000 Nucleated RBC % (auto) 0.0 aPTT Heparin Protocol 55.6 Anion Gap Estim Creat Clear Calc Estimated GFR POC Glucose 139 H Random Glucose Calcium Blood Type Antibody Screen Crossmatch 12/30/22 06:10 MCV MCH MCHC RDW Plt Count MPV Absolute Nucleated RBC Nucleated RBC % (auto) aPTT Heparin Protocol Anion Gap 18 Estim Creat Clear Calc 18.6 Estimated GFR 16 POC Glucose Random Glucose 86 Calcium 8.7 Blood Type Antibody Screen Crossmatch Microbiology Microbiology Results: Microbiology 12/24/22 07:43 Blood Culture - Final Blood - Venous No growth after 5 days. Assessment and Plan (1) Acute myocardial infarction of posterolateral wall: Status: Acute (2) Acute pulmonary edema: Status: Acute (3) Acute respiratory failure with hypoxia: Status: Acute Plan 82F PMH chronic hypoxic respiratory failure on 2L home o2, chronic diastolic chf, CKD IV, obesity, HTN, HLD, preDM, presented with shortness of breath acute on chronic hypoxic respiratory failure due to acute on chronic diastolic chf improving On 3L O2 now, was on BiPAP at night Increase IV lasix 40 bid wean O2 down as tolerated Acute coronary syndrome EKG showed lateral distribution, trending down Trop at 3100 Dropped Hb while on heparin before, required transfusion. so she was not considered for intervention with high risk of bleeding with no clear source Currently no chest pain but risk of recurrent angina and heart failure still high.? ECHO showed low EF cardio to approach with conservative measures and hold on intervention, family on board on Heparin drip On Coreg Aspirin, Plavix Statin Family to consider outpatient further work up and intervention after this hospital stay Acute on chronic symptomatic anemia Improved to 8.6 No overt bleeding Transfuse 1 unit of blood monitor CBC after starting heparin NAHID on cKD IV improved but not back to baseline, stable monitor BMP obesity weight loss recomended chronic anemia monitor htn amlodipine hld statin dvt prophylaxis on iv heparin full code patient with ACS on heparin drip following H&H and improvement in clinical status Time Spent With Patient Time: Total time managing care of this patient today ____ minutes. Quality Stroke Does the patient have a stroke diagnosis?: No VTE Prior VTE?: No VTE Risk Level:: Medical - moderate - high VTE Device Contraindication: Treatment Not Indicated VTE Drug Contraindication: N/A - Med Ordered
--- NOTE | 2022-12-30 11:32 | P.PNCA_ITS ---
Subjective Subjective Date of Service: 12/30/22 Principal diagnosis: NSTEMI Interval history: Discussed with patient using historic interpreter. She states that she is doing okay. No current chest pain. Breathing is okay. Review of Systems Review of Systems Yes all other systems are reviewed and are negative Constitutional: Reports as per HPI and Reports no additional constitutional complaints Eyes: Reports as per HPI and Denies no additional eye complaints Denies system reviewed and no additional complaints, except as documented and Reports as per HPI Cardiovascular: Reports as per HPI, Reports no additional cardiovascular complaints, Denies acrocyanosis, Denies cool extremities, Denies chest pain, Denies leg edema, Denies lightheadedness, Denies palpitations and Reports dyspnea Respiratory: Reports as per HPI, Denies no additional respiratory complaints and Reports dyspnea Gastrointestinal: Reports as per HPI and Denies no additional gastrointestinal complaints Genitourinary: Reports as per HPI Musculoskeletal: Reports no additional musculoskeletal complaints and Reports as per HPI Skin/Breast: Reports system reviewed and no additional complaints, except as docu Reports system reviewed and no additional complaints, except as documented and Reports as per HPI Psychiatric: Reports no additional psychiatric complaints and Reports as per HPI Endocrine: Reports no additional endocrine complaints, Reports as per HPI and Denies palpitations Hematologic/Lymphatic: Reports no additional hematologic/lymphatic complaints and Reports as per HPI Allergic/Immunologic: Reports no additional allergic/immunologic complaints and Reports as per HPI Physical Exam Vital Signs: Last Vital Signs Temp 97.6 F 12/30/22 07:46 Pulse 54 12/30/22 07:46 Resp 20 12/30/22 07:46 BP 135/71 12/30/22 07:46 Pulse Ox 100 12/30/22 07:46 O2 Del Method CPAP 12/30/22 07:46 O2 Flow Rate 30 12/30/22 07:46 FiO2 35 12/30/22 04:00 Oxygen Flow Rate 6 12/24/22 06:55 BMI result Body Mass Index 36.2 Const General: comfortable and no acute distress Orientation/consciousness: patient oriented x3 HEENT Other: Unremarkable Head: Yes normal to inspection Neck Neck: Yes normal visual inspection Chest Chest palpation & inspection: normal inspection of the chest Resp Auscultation: crackles Cardio Palpation: normal PMI Heart sounds: S1 normal heart sound present, S2 normal heart sound present, no gallops, Murmur heart sound present systolic II/ and at the right sternal border and no rubs GI Palpation (GI): Soft to palpation Back/Spine/Pelvis Other: unremarkable Skin General skin exam: no rashes or lesions noted Neuro General: patient oriented x3 Extrem Other: 2+ edema General: Yes normal to inspection Psych Mental Status: mental status grossly normal Objective Labs and Meds 12/30/22 06:10 12/30/22 06:10 Lab results: Laboratory Results - last 24 hr 12/29/22 12/29/22 12/29/22 10:29 11:52 16:08 WBC RBC Hgb Hct MCV MCH MCHC RDW Plt Count MPV Absolute Nucleated RBC Nucleated RBC % (auto) aPTT Heparin Protocol Sodium Potassium Chloride Carbon Dioxide Anion Gap BUN Creatinine Estim Creat Clear Calc Estimated GFR POC Glucose 146 H 149 H Random Glucose Calcium Blood Type A Positive Antibody Screen NEGATIVE Crossmatch See Detail 12/29/22 12/30/22 12/30/22 19:28 06:10 06:10 WBC 6.6 RBC 2.91 L Hgb 8.6 L Hct 26.4 L MCV 90.7 MCH 29.6 MCHC 32.6 RDW 16.1 H Plt Count 190 MPV 11.6 Absolute Nucleated RBC 0.000 Nucleated RBC % (auto) 0.0 aPTT Heparin Protocol 55.6 Sodium Potassium Chloride Carbon Dioxide Anion Gap BUN Creatinine Estim Creat Clear Calc Estimated GFR POC Glucose 139 H Random Glucose Calcium Blood Type Antibody Screen Crossmatch 12/30/22 06:10 WBC RBC Hgb Hct MCV MCH MCHC RDW Plt Count MPV Absolute Nucleated RBC Nucleated RBC % (auto) aPTT Heparin Protocol Sodium 142 Potassium 3.9 Chloride 106 Carbon Dioxide 22 Anion Gap 18 BUN 100 H Creatinine 2.89 H Estim Creat Clear Calc 18.6 Estimated GFR 16 POC Glucose Random Glucose 86 Calcium 8.7 Blood Type Antibody Screen Crossmatch Progress Note: A&P Assessment and plan (1) Acute pulmonary edema: Status: Acute (2) Acute myocardial infarction of posterolateral wall: Status: Acute Plan Echocardiogram with LVEF of 30-35%. Wall motion abnormalities in the inferior/inferolateral wall as well as apex. Moderate diastolic dysfunction. BUN is 100. Creatinine is 2.89. Troponin peak was exceeding 3600. Overall, suspected acute coronary infarct with pulmonary edema. Per previously discussed plan, conservative therapy has been chosen which seems appropriate considering her age in many comorbidities as well as renal insufficiency. From ACS standpoint, she is pain free. Currently listed to be on aspirin, Plavix, carvedilol, atorvastatin. With regard to heart failure, on IV Lasix. Overall, guarded prognosis. Discussed with Dr. Campo. Time Spent With Patient Time: Total time managing care of this patient today ____ minutes. Progress Note: Quality Stroke Does the patient have a stroke diagnosis?: No Procedures Date of Service Date of Service: 12/30/22
[2022-12-30 11:46] LABS: Glucose, Whole Blood 144 mg/dL (60-115)
[2022-12-30 11:46] LABS: Glucose, Whole Blood 92 mg/dL (60-115)
--- NOTE | 2022-12-30 12:07 | MHC.CLN ---
F/U PO INTAKE 75% AVG DIET RX: 2000DM-APPROPRIATE PT WITH INCREASED RISK R/T PRESSURE INJURY PT RECEIVING ENSURE MAX BID TO PROMOTE WOUND HEALING SUPP PROVIDES 300KCALS, 60G PROTEIN WITH 100% ACCEPTANCE NOTED INCREASE IN BUN/CREAT WILL CHANGE SUPPLEMENT TO ENSURE CLEAR TID TO PROVIDE 720KCALS, 24G PROTEIN MONITOR PO INTAKE
[2022-12-30] MEDS: Acetaminophen 325 MG TABLET 650 MG PO ×2 (12:49→22:50)
--- NOTE | 2022-12-30 16:30 | PC.NURSE ---
Vera was removed per MD ordered. Pt is due to void at 4400-0090. pt tolerated well.
[2022-12-30 17:01] LABS: Glucose, Whole Blood 136 mg/dL (60-115)
[2022-12-30] MEDS: Heparin Sodium,Porcine/1/2NS 25,000 UNIT/250 ML IV.SOLN 9.43 UNIT IVCONT (19:26)
[2022-12-30 22:17] LABS: Glucose, Whole Blood 188 mg/dL (60-115)
[2022-12-30] MEDS: Pregabalin 25 MG CAPSULE PO (22:50)
[2022-12-30] MEDS: Atorvastatin Calcium 40 MG TABLET PO (22:50)
[2022-12-30] MEDS: Insulin Lispro 100 UNIT/ML 3 ML VIAL SUBCUT (22:51)
[2022-12-31] VITALS (10 sets, daily range): BP systolic 135–167; BP diastolic 50–85; PULSE 60–83; RESP 15–22; TEMP 36.2–36.7; O2SAT 86–99
[2022-12-31 05:03] LABS: Hematocrit 26.1 % (37.0-47.0); Hemoglobin 8.3 g/dl (12.0-16.0); Mean Corpuscular HGB Conc 31.8 g/dl (31.0-35.0); Mean Corpuscular Hemoglobin 29.4 pg (27.0-33.0); Mean Corpuscular Volume 92.6 fL (80.0-98.0); Mean Platelet Volume 11.2 fL (9.4-12.3); Platelet Count 174 X10*3/uL (160-400); Red Blood Count 2.82 X10*6/uL (4.20-5.50); White Blood Count 6.4 X10*3/uL (4.8-10.8)
[2022-12-31] MEDS: Nitroglycerin 2 % Oint 1 GM Packet 0.5 INCH TRANSDERMA ×4 (05:04→22:43)
[2022-12-31 05:17] LABS: PTT Heparin Drip 55.3 SEC (53-77.9)
[2022-12-31 05:46] LABS: Anion Gap 16 (12-20); Blood Urea Nitrogen 108 mg/dL (9-16); Calcium 8.8 mg/dL (8.4-10.2); Carbon Dioxide 22 mmol/L (22-29); Chloride 107 mmol/L (96-108); Creatinine Clr Calc Pharmacy 18.6; Estimated Glomerular Filt Rate 16; Glucose Random 90 mg/dL (60-115); Potassium 4.1 mmol/L (3.3-5.1); Sodium 141 mmol/L (135-145)
[2022-12-31 07:33] LABS: Glucose, Whole Blood 97 mg/dL (60-115)
[2022-12-31] MEDS: Furosemide 40 MG/4 ML VIAL IVPUSH ×2 (10:17→13:00)
[2022-12-31] MEDS: Clopidogrel Bisulfate 75 MG TABLET PO (10:17)
[2022-12-31] MEDS: amLODIPine Besylate 10 MG TABLET PO (10:17)
[2022-12-31] MEDS: Aspirin Enteric Coated 81 MG TABLET.DR PO (10:17)
[2022-12-31] MEDS: Spironolactone 25 MG TABLET PO (10:17)
[2022-12-31] MEDS: carvediloL 12.5 MG TABLET PO ×2 (10:17→19:59)
[2022-12-31] MEDS: Lidocaine 4 % Patch ADH..PATCH 1 PATCH TRANSDERMA (10:18)
[2022-12-31] MEDS: 0.9 % Sodium Chloride Flush 3 ML SYRINGE IVFLUSH ×3 (10:18→20:01)
--- NOTE | 2022-12-31 10:48 | PM.PNCARD ---
Subjective Subjective Date of Service: 12/31/22 Principal diagnosis: NSTEMI Interval history: She states that she is feeling better. No clear-cut cardiac complaints at this time. Review of Systems Review of Systems Yes all other systems are reviewed and are negative Constitutional: Reports as per HPI and Reports no additional constitutional complaints Eyes: Reports as per HPI and Denies no additional eye complaints Denies system reviewed and no additional complaints, except as documented and Reports as per HPI Cardiovascular: Reports as per HPI, Reports no additional cardiovascular complaints, Denies acrocyanosis, Denies cool extremities, Denies chest pain, Denies leg edema, Denies lightheadedness, Denies palpitations and Reports dyspnea Respiratory: Reports as per HPI, Denies no additional respiratory complaints and Reports dyspnea Gastrointestinal: Reports as per HPI and Denies no additional gastrointestinal complaints Musculoskeletal: Reports no additional musculoskeletal complaints and Reports as per HPI Skin/Breast: Reports system reviewed and no additional complaints, except as docu Reports system reviewed and no additional complaints, except as documented and Reports as per HPI Psychiatric: Reports no additional psychiatric complaints and Reports as per HPI Endocrine: Reports no additional endocrine complaints, Reports as per HPI and Denies palpitations Hematologic/Lymphatic: Reports no additional hematologic/lymphatic complaints and Reports as per HPI Allergic/Immunologic: Reports no additional allergic/immunologic complaints and Reports as per HPI Physical Exam Vital Signs: Last Vital Signs Temp 97.6 F 12/31/22 07:13 Pulse 65 12/31/22 10:21 Resp 20 12/31/22 07:13 BP 148/64 H 12/31/22 07:13 Pulse Ox 98 12/31/22 07:13 O2 Del Method BiPAP 12/31/22 07:13 O2 Flow Rate 3 12/31/22 07:13 FiO2 35 12/31/22 07:13 Oxygen Flow Rate 6 12/24/22 06:55 BMI result Body Mass Index 36.2 Const General: comfortable and no acute distress Orientation/consciousness: patient oriented x3 HEENT Other: Unremarkable Head: Yes normal to inspection Neck Neck: Yes normal visual inspection Chest Chest palpation & inspection: normal inspection of the chest Resp Auscultation: crackles Cardio Palpation: normal PMI Heart sounds: S1 normal heart sound present, S2 normal heart sound present, no gallops, Murmur heart sound present systolic II/ and at the right sternal border and no rubs GI Palpation (GI): Soft to palpation Back/Spine/Pelvis Other: unremarkable Skin General skin exam: no rashes or lesions noted Neuro General: patient oriented x3 Extrem Other: 2+ edema General: Yes normal to inspection Psych Mental Status: mental status grossly normal Objective Labs and Meds 12/31/22 04:54 12/31/22 04:54 Lab results: Laboratory Results - last 24 hr 12/30/22 12/30/22 12/30/22 07:50 11:34 16:35 WBC RBC Hgb Hct MCV MCH MCHC RDW Plt Count MPV Absolute Nucleated RBC Nucleated RBC % (auto) aPTT Heparin Protocol Sodium Potassium Chloride Carbon Dioxide Anion Gap BUN Creatinine Estim Creat Clear Calc Estimated GFR POC Glucose 92 144 H 136 H Random Glucose Calcium 12/30/22 12/31/22 12/31/22 21:47 04:54 04:54 WBC 6.4 RBC 2.82 L Hgb 8.3 L Hct 26.1 L MCV 92.6 MCH 29.4 MCHC 31.8 RDW 16.0 Plt Count 174 MPV 11.2 Absolute Nucleated RBC 0.000 Nucleated RBC % (auto) 0.0 aPTT Heparin Protocol 55.3 Sodium Potassium Chloride Carbon Dioxide Anion Gap BUN Creatinine Estim Creat Clear Calc Estimated GFR POC Glucose 188 H Random Glucose Calcium 12/31/22 12/31/22 04:54 07:27 WBC RBC Hgb Hct MCV MCH MCHC RDW Plt Count MPV Absolute Nucleated RBC Nucleated RBC % (auto) aPTT Heparin Protocol Sodium 141 Potassium 4.1 Chloride 107 Carbon Dioxide 22 Anion Gap 16 BUN 108 H Creatinine 2.89 H Estim Creat Clear Calc 18.6 Estimated GFR 16 POC Glucose 97 Random Glucose 90 Calcium 8.8 Progress Note: A&P Assessment and plan (1) Acute pulmonary edema: Status: Acute (2) Acute myocardial infarction of posterolateral wall: Status: Acute Plan Echocardiogram with LVEF of 30-35%. Wall motion abnormalities in the inferior/inferolateral wall as well as apex. Moderate diastolic dysfunction. BUN is 108. Creatinine is 2.89. Troponin peak was exceeding 3600. Overall, suspected acute coronary infarct with pulmonary edema. Per previously discussed plan, conservative therapy has been chosen which seems appropriate considering her age in many comorbidities as well as renal insufficiency. From ACS standpoint, she is pain free. Currently listed to be on aspirin, Plavix, carvedilol, atorvastatin. Based on input/output data, she has not diurese much. However, not clear how much that is reliable. On clinical exam, she still seems volume overloaded. Overall, difficult scenario but we can probably try to go up on the Lasix at a higher dose and she if she responds or not. Guarded prognosis. At some point, need to discuss goals of care. Discussed with Dr. Campo. Time Spent With Patient Time: Total time managing care of this patient today ____ minutes. Progress Note: Quality Stroke Does the patient have a stroke diagnosis?: No Procedures Date of Service Date of Service: 12/31/22
[2022-12-31 11:30] LABS: Glucose, Whole Blood 184 mg/dL (60-115)
[2022-12-31] MEDS: Insulin Lispro 100 UNIT/ML 3 ML VIAL SUBCUT ×3 (11:53→20:00)
--- NOTE | 2022-12-31 12:21 | HO.PM.IMPN ---
Subjective Subjective Date of Service: 12/31/22 Interval History: Seen and evaluated this morning Feels better ,no recurrence of chest pain Hb stable above 8 with no overt bleeding , Discontinue heparin required BiPAP at night, on O2 3L with fair O2 sat stable Cr No other overnight events Review of Systems Review of Systems: Yes all other systems are reviewed and are negative Physical Exam Vital Signs: Vital Signs: Last Vital Signs Temp 97.6 F 12/31/22 11:16 Pulse 60 12/31/22 11:16 Resp 15 12/31/22 11:16 BP 135/55 L 12/31/22 11:16 Pulse Ox 97 12/31/22 11:16 O2 Del Method Nasal Cannula 12/31/22 11:16 O2 Flow Rate 3 12/31/22 11:16 FiO2 35 12/31/22 07:13 Oxygen Flow Rate 6 12/24/22 06:55 BMI result Body Mass Index 36.2 Const: Other: Constitutional : Awake, interactive, not in distress Neck : Normal inspection, Supple Cardiovascular : RRR, elevaated JVP, +2 bilateral lower extremity edema Respiratory : fair bilateral air entry, no significant crackles Gastrointestinal: soft, lax, Normal bowel sounds, Non tender Skin : Warm, Dry Neurological : Alert & oriented to self place and time, No focal deficit Objective Data Active Medications Acetaminophen (Acetaminophen 325 Mg Tablet) 650 mg PO Q6H PRN PRN Reason: moderate pain Last Admin: 12/30/22 22:50 Dose: 650 mg Documented By: JOYCE Amlodipine Besylate (Amlodipine Besylate 10 Mg Tablet) 10 mg PO DAILY [facility]; Protocol Last Admin: 12/31/22 10:17 Dose: 10 mg Documented By: ZORAN Aspirin (Aspirin Enteric Coated 81 Mg Tablet.) 81 mg PO DAILY [facility] Last Admin: 12/31/22 10:17 Dose: 81 mg Documented By: ZORAN Atorvastatin Calcium (Atorvastatin Calcium 40 Mg Tablet) 40 mg PO BEDTIME [facility] Last Admin: 12/30/22 22:50 Dose: 40 mg Documented By: JOYCE Carvedilol (Carvedilol 12.5 Mg Tablet) 12.5 mg PO BID [facility]; Protocol Last Admin: 12/31/22 10:17 Dose: 12.5 mg Documented By: ZORAN Clopidogrel Bisulfate (Clopidogrel Bisulfate 75 Mg Tablet) 75 mg PO DAILY [facility] Last Admin: 12/31/22 10:17 Dose: 75 mg Documented By: ZORAN Furosemide (Furosemide 40 Mg/4 Ml Vial) 40 mg IVPUSH BID@0900,1800 [facility]; Protocol Last Admin: 12/31/22 10:17 Dose: 40 mg Documented By: ZORAN Insulin Human Lispro (Insulin Lispro 100 Unit/Ml 3 Ml Vial) 0 unit SUBCUT QIDACHS [facility]; Protocol Last Admin: 12/31/22 11:53 Dose: 2 unit Documented By: ZORAN Lidocaine (Lidocaine 4 % Patch Adh..Patch) 1 patch TRANSDERMA DAILY [facility]; Protocol Last Admin: 12/31/22 10:18 Dose: 1 patch Documented By: ZORAN Nitroglycerin (Nitroglycerin 0.4 Mg Tab.Subl) 0.4 mg SUBLINGUAL Q5MX3 PRN PRN Reason: chest pain Last Admin: 12/27/22 23:58 Dose: 0.4 mg Documented By: SALVATORE Comments: pt denies chest pain Nitroglycerin (Nitroglycerin 2 % Oint 1 Gm Packet) 0.5 inch TRANSDERMA Q6H [facility]; Protocol Last Admin: 12/31/22 11:52 Dose: 0.5 inch Documented By: ZORAN Pharmacy Consult (Consult Rx Perform Med Rec) 1 each MISCELLANE ONCE PRN PRN Reason: Consult order Pregabalin (Pregabalin 25 Mg Capsule) 25 mg PO BEDTIME [facility] Last Admin: 12/30/22 22:50 Dose: 25 mg Documented By: JOYCE Sodium Chloride (0.9 % Sodium Chloride Flush 3 Ml Syringe) 3 ml IVFLUSH QSHIFT [facility] Last Admin: 12/31/22 10:18 Dose: 3 ml Documented By: ZORAN Spironolactone (Spironolactone 25 Mg Tablet) 25 mg PO DAILY [facility]; Protocol Last Admin: 12/31/22 10:17 Dose: 25 mg Documented By: ZORAN Labs 12/31/22 04:54 12/31/22 04:54 Labs: Laboratory Results - last 24 hr 12/30/22 12/30/22 12/31/22 16:35 21:47 04:54 MCV MCH MCHC RDW Plt Count MPV Absolute Nucleated RBC Nucleated RBC % (auto) aPTT Heparin Protocol 55.3 Anion Gap Estim Creat Clear Calc Estimated GFR POC Glucose 136 H 188 H Random Glucose Calcium 12/31/22 12/31/22 12/31/22 04:54 04:54 07:27 MCV 92.6 MCH 29.4 MCHC 31.8 RDW 16.0 Plt Count 174 MPV 11.2 Absolute Nucleated RBC 0.000 Nucleated RBC % (auto) 0.0 aPTT Heparin Protocol Anion Gap 16 Estim Creat Clear Calc 18.6 Estimated GFR 16 POC Glucose 97 Random Glucose 90 Calcium 8.8 12/31/22 11:22 MCV MCH MCHC RDW Plt Count MPV Absolute Nucleated RBC Nucleated RBC % (auto) aPTT Heparin Protocol Anion Gap Estim Creat Clear Calc Estimated GFR POC Glucose 184 H Random Glucose Calcium Assessment and Plan (1) Acute myocardial infarction of posterolateral wall: Status: Acute (2) Acute pulmonary edema: Status: Acute (3) Symptomatic anemia: Status: Acute (4) Acute respiratory failure with hypoxia: Status: Acute Plan 82F PMH chronic hypoxic respiratory failure on 2L home o2, chronic diastolic chf, CKD IV, obesity, HTN, HLD, preDM, presented with shortness of breath acute on chronic hypoxic respiratory failure due to acute on chronic diastolic chf improving On 3L O2 now, was on BiPAP at night Increase IV lasix 80 bid Monitor I\O wean O2 down as tolerated to do overnight Oxymetry for BiPAP home eval Acute coronary syndrome EKG showed lateral distribution, trending down Trop at 3100 Dropped Hb while on heparin before, required transfusion. so she was not considered for intervention with high risk of bleeding with no clear source Currently no chest pain but risk of recurrent angina and heart failure still high.? ECHO showed low EF cardio to approach with conservative measures and hold on intervention, family on board DC Heparin drip On Coreg Aspirin, Plavix AtorvaStatin Family to consider outpatient further work up and intervention after this hospital stay Acute on chronic symptomatic anemia Improved to 8.3 No overt bleeding, negative occult but likely GI loss Transfused total of 4 unit of blood, follow CBC NAHID on cKD IV back to baseline, stable monitor BMP obesity weight loss recomended chronic anemia monitor htn amlodipine hld statin dvt prophylaxis on iv heparin full code patient with ACS on heparin drip following H&H , Fluid overload, eval for BiPAP need and improvement in clinical status Time Spent With Patient Time: Total time managing care of this patient today ____ minutes. Quality Stroke Does the patient have a stroke diagnosis?: No VTE Prior VTE?: No VTE Risk Level:: Medical - moderate - high VTE Device Contraindication: Treatment Not Indicated VTE Drug Contraindication: N/A - Med Ordered
--- NOTE | 2022-12-31 14:28 | P.CDIM_ITS ---
PROVIDER RESPONSE TEXT: To clarify, the appropriate diagnosis supported by the clinical indicators: Pressure (decubitus) ulcer: stage 2 QUERY TEXT: PHYSICIAN'S DOCUMENTATION REQUEST Date of Query: 12/30/2022 08:44 AM EDT Patient Name: Kay Cuadra Admit Date: 12/24/2022 Dear Elisabet Campo, A review of the medical record indicates additional documentation may be needed. Please review below and update the documentation accordingly. Clinical Indicators: Per Pressure Injury Assessment 12/25/22: Stage 2 coccyx H&P 12/24/22 without mention of pressure ulcer Based on the above, could you please provide further information regarding the ulcer/wound: r Pressure (decubitus) ulcer Please include the stage of the ulcer and specify the location and laterality of the ulcer/wound Other, please specify Unable to determine Other (explain) Clinically unable to determine (explain) Thank you, Helen Mullen RN Use of terms such as suspected, likely, concern for, or probable (associated with a specific diagnosi s that is being evaluated, monitored, or treated as if it exists) are acceptable and can be coded in the inpatient se tting, when documented at the time of discharge. Please use your independent medical judgment in providing your response. THIS QUERY IS PART OF THE PERMANENT MEDICAL RECORD
[2022-12-31 17:09] LABS: Glucose, Whole Blood 166 mg/dL (60-115)
[2022-12-31] MEDS: Furosemide 40 MG/4 ML VIAL 80 MG IVPUSH (17:54)
[2022-12-31 19:50] LABS: Glucose, Whole Blood 214 mg/dL (60-115)
[2022-12-31] MEDS: Atorvastatin Calcium 40 MG TABLET PO (20:00)
[2022-12-31] MEDS: Pregabalin 25 MG CAPSULE PO (20:00)
[2023-01-01 03:04] VITALS: BP 149/67; PULSE 60; RESP 20; TEMP 36.4; O2SAT 94
[2023-01-01] MEDS: Nitroglycerin 2 % Oint 1 GM Packet 0.5 INCH TRANSDERMA ×4 (05:11→23:26)
[2023-01-01 06:22] LABS: Hematocrit 25.7 % (37.0-47.0); Hemoglobin 8.4 g/dl (12.0-16.0); Mean Corpuscular HGB Conc 32.7 g/dl (31.0-35.0); Mean Corpuscular Hemoglobin 29.8 pg (27.0-33.0); Mean Corpuscular Volume 91.1 fL (80.0-98.0); Mean Platelet Volume 11.2 fL (9.4-12.3); Platelet Count 186 X10*3/uL (160-400); Red Blood Count 2.82 X10*6/uL (4.20-5.50); White Blood Count 6.7 X10*3/uL (4.8-10.8)
[2023-01-01 06:33] LABS: PTT Heparin Drip 29.5 SEC (53-77.9)
[2023-01-01 06:40] LABS: Anion Gap 15 (12-20); Blood Urea Nitrogen 110 mg/dL (9-16); Calcium 8.9 mg/dL (8.4-10.2); Carbon Dioxide 23 mmol/L (22-29); Chloride 106 mmol/L (96-108); Creatinine Clr Calc Pharmacy 18.7; Estimated Glomerular Filt Rate 16; Glucose Random 96 mg/dL (60-115); Potassium 4.3 mmol/L (3.3-5.1); Sodium 140 mmol/L (135-145)
[2023-01-01 06:44] LABS: B Type Natriuretic Peptide 909 pg/mL (<100)
[2023-01-01 07:23] LABS: Glucose, Whole Blood 96 mg/dL (60-115)
[2023-01-01 07:55] VITALS: PULSE 54; RESP 15; O2SAT 98
[2023-01-01 07:56] VITALS: BP 170/77; PULSE 59; RESP 18; TEMP 36.2; O2SAT 94
--- NOTE | 2023-01-01 08:50 | PC.RT ---
ABG attempeted this am after overnight oximetry. ABG not obtainalble after puncture. Pt also was bleeding alot due to heparin. Dr. Krysta goldberg.
[2023-01-01] MEDS: Lidocaine 4 % Patch ADH..PATCH 1 PATCH TRANSDERMA (09:27)
[2023-01-01] MEDS: Furosemide 40 MG/4 ML VIAL 80 MG IVPUSH ×2 (09:27→17:01)
[2023-01-01] MEDS: 0.9 % Sodium Chloride Flush 3 ML SYRINGE IVFLUSH ×2 (09:28→20:09)
[2023-01-01] MEDS: Spironolactone 25 MG TABLET PO (09:28)
[2023-01-01] MEDS: Aspirin Enteric Coated 81 MG TABLET.DR PO (09:28)
[2023-01-01] MEDS: Clopidogrel Bisulfate 75 MG TABLET PO (09:28)
[2023-01-01] MEDS: amLODIPine Besylate 10 MG TABLET PO (09:29)
--- NOTE | 2023-01-01 10:06 | PM.PNCARD ---
Subjective Subjective Date of Service: 01/01/23 Principal diagnosis: NSTEMI Interval history: Patient is lying down in bed. Not much of activity. She states she is doing okay. Denies any chest pain or shortness of breath. Still has leg swelling. Review of Systems Review of Systems Yes all other systems are reviewed and are negative Constitutional: Reports as per HPI and Reports no additional constitutional complaints Eyes: Reports as per HPI and Denies no additional eye complaints Denies system reviewed and no additional complaints, except as documented and Reports as per HPI Cardiovascular: Reports as per HPI, Reports no additional cardiovascular complaints, Denies acrocyanosis, Denies cool extremities, Denies chest pain, Denies leg edema, Denies lightheadedness, Denies palpitations and Denies dyspnea Respiratory: Reports as per HPI, Denies no additional respiratory complaints and Denies dyspnea Gastrointestinal: Reports as per HPI and Denies no additional gastrointestinal complaints Genitourinary: Reports as per HPI Musculoskeletal: Reports no additional musculoskeletal complaints and Reports as per HPI Skin/Breast: Reports system reviewed and no additional complaints, except as docu Reports system reviewed and no additional complaints, except as documented and Reports as per HPI Psychiatric: Reports no additional psychiatric complaints and Reports as per HPI Endocrine: Reports no additional endocrine complaints, Reports as per HPI and Denies palpitations Hematologic/Lymphatic: Reports no additional hematologic/lymphatic complaints and Reports as per HPI Allergic/Immunologic: Reports no additional allergic/immunologic complaints and Reports as per HPI Physical Exam Vital Signs: Last Vital Signs Temp 97.2 F 01/01/23 07:56 Pulse 59 01/01/23 07:56 Resp 18 01/01/23 07:56 BP 170/77 H 01/01/23 07:56 Pulse Ox 94 01/01/23 07:56 O2 Del Method Nasal Cannula 01/01/23 07:56 O2 Flow Rate 2 01/01/23 07:56 FiO2 35 12/31/22 07:13 Oxygen Flow Rate 6 12/24/22 06:55 BMI result Body Mass Index 36.2 Const General: comfortable and no acute distress Orientation/consciousness: patient oriented x3 HEENT Other: Unremarkable Head: Yes normal to inspection Neck Neck: Yes normal visual inspection Chest Chest palpation & inspection: normal inspection of the chest Resp Auscultation: crackles Cardio Palpation: normal PMI Heart sounds: S1 normal heart sound present, S2 normal heart sound present, no gallops, Murmur heart sound present systolic II/ and at the right sternal border and no rubs GI Palpation (GI): Soft to palpation Back/Spine/Pelvis Other: unremarkable Skin General skin exam: no rashes or lesions noted Neuro General: patient oriented x3 Extrem Other: 1-2+ edema General: Yes normal to inspection Psych Mental Status: mental status grossly normal Objective Labs and Meds 01/01/23 06:10 01/01/23 06:10 Lab results: Laboratory Results - last 24 hr 12/31/22 12/31/22 12/31/22 11:22 17:05 19:45 WBC RBC Hgb Hct MCV MCH MCHC RDW Plt Count MPV Absolute Nucleated RBC Nucleated RBC % (auto) aPTT Heparin Protocol Sodium Potassium Chloride Carbon Dioxide Anion Gap BUN Creatinine Estim Creat Clear Calc Estimated GFR POC Glucose 184 H 166 H 214 H Random Glucose Calcium B-Natriuretic Peptide 01/01/23 01/01/23 01/01/23 06:10 06:10 06:10 WBC 6.7 RBC 2.82 L Hgb 8.4 L Hct 25.7 L MCV 91.1 MCH 29.8 MCHC 32.7 RDW 16.0 Plt Count 186 MPV 11.2 Absolute Nucleated RBC 0.000 Nucleated RBC % (auto) 0.0 aPTT Heparin Protocol 29.5 L D Sodium 140 Potassium 4.3 Chloride 106 Carbon Dioxide 23 Anion Gap 15 BUN 110 H Creatinine 2.88 H Estim Creat Clear Calc 18.7 Estimated GFR 16 POC Glucose Random Glucose 96 Calcium 8.9 B-Natriuretic Peptide 01/01/23 01/01/23 06:10 07:19 WBC RBC Hgb Hct MCV MCH MCHC RDW Plt Count MPV Absolute Nucleated RBC Nucleated RBC % (auto) aPTT Heparin Protocol Sodium Potassium Chloride Carbon Dioxide Anion Gap BUN Creatinine Estim Creat Clear Calc Estimated GFR POC Glucose 96 Random Glucose Calcium B-Natriuretic Peptide 909 H Progress Note: A&P Assessment and plan (1) Acute pulmonary edema: Status: Acute (2) Acute myocardial infarction of posterolateral wall: Status: Acute Plan Echocardiogram with LVEF of 30-35%. Wall motion abnormalities in the inferior/inferolateral wall as well as apex. Moderate diastolic dysfunction. BUN is 110. Creatinine is 2.88. Troponin peak was exceeding 3600. Cardiac BNP was peaking at 1500 but today it is 900. And there is improvement. Overall, suspected acute coronary infarct with pulmonary edema. Per previously discussed plan, conservative therapy has been chosen which seems appropriate considering her age in many comorbidities as well as renal insufficiency. From ACS standpoint, she is pain free. Currently listed to be on aspirin, Plavix, carvedilol, amlodipine, NTG paste, atorvastatin. Overall, she is reasonably stable but still edematous. As she is essentially bedbound at home, not clear how much this is going to improve. Also due to significant renal insufficiency, she is not really suitable for aggressive diuretics. We already tried with not much of change. Also input output data is inaccurate and we cannot use that either. Will need to discuss with family about goals of care. Discharge planning. Discussed with Dr. Chaparro. Time Spent With Patient Time: Total time managing care of this patient today 52 minutes. This includes time spent in review of chart, laboratory data, imaging studies, review of telemetry, counseling patient, discussion with hospitalist, RN, documentation, coordination of care. Progress Note: Quality Stroke Does the patient have a stroke diagnosis?: No Procedures Date of Service Date of Service: 01/01/23
--- NOTE | 2023-01-01 10:14 | MHC.CLN ---
F/U PO INTAKE VARIABLE RANGING FROM 25-100% DIET RX: 2000DM-APPROPRIATE PT WITH INCREASED RISK R/T PRESSURE INJURY PT RECEIVING ENSURE CLEAR TID TO PROVIDE 720KCALS, 24G PROTEIN SUPPLEMENT IS RENAL FRIENDLY MONITOR PO INTAKE
--- NOTE | 2023-01-01 10:22 | MHC.CM.PN ---
Per ROUNDS discussion, Patient is not yet medically cleared for dc (IV Lasix); Patient will need PT eval to assist with disposition.
--- NOTE | 2023-01-01 11:14 | P.PNIM_ITS ---
Subjective Subjective Date of Service: 01/01/23 Interval History: fatigued Physical Exam Vital Signs: Vital Signs: Last Vital Signs Temp 97.2 F 01/01/23 07:56 Pulse 59 01/01/23 07:56 Resp 18 01/01/23 07:56 BP 170/77 H 01/01/23 07:56 Pulse Ox 94 01/01/23 07:56 O2 Del Method Nasal Cannula 01/01/23 07:56 O2 Flow Rate 2 01/01/23 07:56 FiO2 35 12/31/22 07:13 Oxygen Flow Rate 6 12/24/22 06:55 BMI result Body Mass Index 36.2 Const: General: comfortable and no acute distress [place] ation/consciousness: patient oriented x3 HEENT: Other: Unremarkable Head: Yes normal to inspection Neck: Neck: Yes normal visual inspection Chest: Chest palpation & inspection: normal inspection of the chest Resp: Auscultation: crackles Cardio: Palpation: normal PMI Heart sounds: S1 normal heart sound present, S2 normal heart sound present, no gallops, Murmur heart sound present systolic II/ and at the right sternal border and no rubs GI: Palpation (GI): Soft to palpation Back/Spine/Pelvis: Other: unremarkable Skin: General skin exam: no rashes or lesions noted Neuro: General: patient oriented x3 Extrem: Other: 1-2+ edema General: Yes normal to inspection Psych: Mental Status: mental status grossly normal Objective Data Active Medications Acetaminophen (Acetaminophen 325 Mg Tablet) 650 mg PO Q6H PRN PRN Reason: moderate pain Last Admin: 12/30/22 22:50 Dose: 650 mg Documented By: JOYCE Amlodipine Besylate (Amlodipine Besylate 10 Mg Tablet) 10 mg PO DAILY [facility]; Protocol Last Admin: 01/01/23 09:29 Dose: 10 mg Documented By: ZORAN Aspirin (Aspirin Enteric Coated 81 Mg Tablet.) 81 mg PO DAILY [facility] Last Admin: 01/01/23 09:28 Dose: 81 mg Documented By: ZORAN Atorvastatin Calcium (Atorvastatin Calcium 40 Mg Tablet) 40 mg PO BEDTIME [facility] Last Admin: 12/31/22 20:00 Dose: 40 mg Documented By: KELLIE Carvedilol (Carvedilol 12.5 Mg Tablet) 12.5 mg PO BID [facility]; Protocol Last Admin: 01/01/23 09:18 Dose: Not Given Documented By: ZORAN Non-Admin Reason: pt HR below 60 Clopidogrel Bisulfate (Clopidogrel Bisulfate 75 Mg Tablet) 75 mg PO DAILY [facility] Last Admin: 01/01/23 09:28 Dose: 75 mg Documented By: ZORAN Furosemide (Furosemide 40 Mg/4 Ml Vial) 80 mg IVPUSH BID@0900,1800 [facility]; Protocol Last Admin: 01/01/23 09:27 Dose: 80 mg Documented By: ZORAN Insulin Human Lispro (Insulin Lispro 100 Unit/Ml 3 Ml Vial) 0 unit SUBCUT Q IDACHS [facility]; Protocol Last Admin: 01/01/23 07:29 Dose: Not Given Documented By: ZORAN Non-Admin Reason: No Insulin Coverage Lidocaine (Lidocaine 4 % Patch Adh..Patch) 1 patch TRANSDERMA DAILY [facility]; Protocol Last Admin: 01/01/23 09:27 Dose: 1 patch Documented By: ZORAN Nitroglycerin (Nitroglycerin 0.4 Mg Tab.Subl) 0.4 mg SUBLINGUAL Q5MX3 PRN PRN Reason: chest pain Last Admin: 12/27/22 23:58 Dose: 0.4 mg Documented By: SALVATORE Comments: pt denies chest pain Nitroglycerin (Nitroglycerin 2 % Oint 1 Gm Packet) 0.5 inch TRANSDERMA Q6H [facility]; Protocol Last Admin: 01/01/23 05:11 Dose: 0.5 inch Documented By: KELLIE Pharmacy Consult (Consult Rx Perform Med Rec) 1 each MISCELLANE ONCE PRN PRN Reason: Consult order Pregabalin (Pregabalin 25 Mg Capsule) 25 mg PO BEDTIME [facility] Last Admin: 12/31/22 20:00 Dose: 25 mg Documented By: KELLIE Sodium Chloride (0.9 % Sodium Chloride Flush 3 Ml Syringe) 3 [facility] Last Admin: 01/01/23 09:28 Dose: 3 ml Documented By: ZORAN Spironolactone (Spironolactone 25 Mg Tablet) 25 mg PO DAILY [facility]; Protocol Last Admin: 01/01/23 09:28 Dose: 25 mg Documented By: ZORAN Labs 01/01/23 06:10 01/01/23 06:10 Labs: Laboratory Results - last 24 hr 12/31/22 12/31/22 12/31/22 11:22 17:05 19:45 MCV MCH MCHC RDW Plt Count MPV Absolute Nucleated RBC Nucleated RBC % (auto) aPTT Heparin Protocol Anion Gap Estim Creat Clear Calc Estimated GFR POC Glucose 184 H 166 H 214 H Random Glucose Calcium B-Natriuretic Peptide 01/01/23 01/01/23 01/01/23 06:10 06:10 06:10 MCV 91.1 MCH 29.8 MCHC 32.7 RDW 16.0 Plt Count 186 MPV 11.2 Absolute Nucleated RBC 0.000 Nucleated RBC % (auto) 0.0 aPTT Heparin Protocol 29.5 L D Anion Gap 15 Estim Creat Clear Calc 18.7 Estimated GFR 16 POC Glucose Random Glucose 96 Calcium 8.9 B-Natriuretic Peptide 01/01/23 01/01/23 06:10 07:19 MCV MCH MCHC RDW Plt Count MPV Absolute Nucleated RBC Nucleated RBC % (auto) aPTT Heparin Protocol Anion Gap Estim Creat Clear Calc Estimated GFR POC Glucose 96 Random Glucose Calcium B-Natriuretic Peptide 909 H Assessment and Plan (1) Acute myocardial infarction of posterolateral wall: Status: Acute (2) Acute pulmonary edema: Status: Acute (3) Symptomatic anemia: Status: Acute (4) Acute respiratory failure with hypoxia: Status: Acute Plan 82F PMH chronic hypoxic respiratory failure on 2L home o2, chronic diastolic chf, CKD IV, obesity, HTN, HLD, preDM, presented with shortness of breath acute on chronic hypoxic respiratory failure due to acute on chronic diastolic chf On 3L O2 now, was on BiPAP at night, qualified for overnight o2 Increased IV lasix 80 bid, will add one dose of metolazone 2.5mg Monitor I\O wean O2 down as tolerated Acute coronary syndrome EKG showed lateral distribution Dropped Hb while on heparin before, required transfusion. so she was not considered for intervention with high risk of bleeding with no clear source Currently no chest pain but risk of recurrent angina and heart failure still high.? ECHO showed Moderate to severe LV systolic dysfunction with grade 2 diastolic dysfunction with regional wall motion abnormality suggestive underlying coronary artery disease cardio to approach with conservative measures and hold on intervention, family on board off Heparin drip On Coreg Aspirin, Plavix AtorvaStatin Family to consider outpatient further work up and intervention after this hospital stay Acute on chronic symptomatic anemia Improved and stable around 8 No overt bleeding, negative occult but likely GI loss Transfused total of 4 unit of blood, follow CBC NAHID on cKD IV back to baseline, stable monitor BMP obesity weight loss recomended htn amlodipine hld statin dvt prophylaxis on sq heparin full code reason for continued hospitalization:iv diuresis, still very overloaded Time Spent With Patient Time: Total time managing care of this patient today ____ minutes. Quality Stroke Does the patient have a stroke diagnosis?: No VTE Prior VTE?: No VTE Risk Level:: Medical - moderate - high VTE Device Contraindication: Treatment Not Indicated VTE Drug Contraindication: N/A - Med Ordered
[2023-01-01 11:40] VITALS: BP 157/69; PULSE 64; RESP 19; TEMP 36.4; O2SAT 93
[2023-01-01 12:14] LABS: Glucose, Whole Blood 146 mg/dL (60-115)
[2023-01-01] MEDS: Heparin Sodium,Porcine 5,000 UNIT/ML VIAL 5000 UNIT SUBCUT ×2 (12:43→20:07)
[2023-01-01] MEDS: metOLazone 2.5 MG TABLET PO (12:43)
[2023-01-01 15:03] VITALS: BP 151/62; PULSE 63; RESP 20; TEMP 36.4; O2SAT 95
[2023-01-01 16:06] LABS: Glucose, Whole Blood 174 mg/dL (60-115)
[2023-01-01] MEDS: Insulin Lispro 100 UNIT/ML 3 ML VIAL SUBCUT ×2 (17:06→20:07)
[2023-01-01 19:09] VITALS: BP 167/68; PULSE 69; RESP 20; TEMP 37; O2SAT 93
[2023-01-01 19:42] LABS: Glucose, Whole Blood 224 mg/dL (60-115)
[2023-01-01] MEDS: Atorvastatin Calcium 40 MG TABLET PO (20:03)
[2023-01-01] MEDS: Pregabalin 25 MG CAPSULE PO (20:03)
[2023-01-01] MEDS: carvediloL 12.5 MG TABLET PO (20:04)
[2023-01-02] VITALS (7 sets, daily range): BP systolic 148–167; BP diastolic 58–84; PULSE 60–67; RESP 16–20; TEMP 35.9–37.2; O2SAT 91–97
[2023-01-02] MEDS: Heparin Sodium,Porcine 5,000 UNIT/ML VIAL 5000 UNIT SUBCUT ×3 (02:35→20:46)
[2023-01-02] MEDS: Nitroglycerin 2 % Oint 1 GM Packet 0.5 INCH TRANSDERMA ×3 (05:22→17:43)
[2023-01-02 06:31] LABS: Hematocrit 26.1 % (37.0-47.0); Hemoglobin 8.5 g/dl (12.0-16.0); Mean Corpuscular HGB Conc 32.6 g/dl (31.0-35.0); Mean Corpuscular Volume 92.2 fL (80.0-98.0); Mean Platelet Volume 11.1 fL (9.4-12.3); Platelet Count 206 X10*3/uL (160-400); Red Blood Count 2.83 X10*6/uL (4.20-5.50); Red Cell Distribution Width 15.9 % (11.0-16.0); White Blood Count 6.4 X10*3/uL (4.8-10.8)
[2023-01-02 06:51] LABS: Anion Gap 17 (12-20); Blood Urea Nitrogen 112 mg/dL (9-16); Carbon Dioxide 24 mmol/L (22-29); Chloride 104 mmol/L (96-108); Creatinine Clr Calc Pharmacy 18.6; Estimated Glomerular Filt Rate 16; Glucose Fasting 87 mg/dL (60-99); Magnesium 1.8 mg/dL (1.6-2.6); Potassium 4.6 mmol/L (3.3-5.1); Sodium 140 mmol/L (135-145)
[2023-01-02 07:16] LABS: Glucose, Whole Blood 84 mg/dL (60-115)
[2023-01-02] MEDS: amLODIPine Besylate 10 MG TABLET PO (08:50)
[2023-01-02] MEDS: carvediloL 12.5 MG TABLET PO ×2 (08:50→20:46)
[2023-01-02] MEDS: Clopidogrel Bisulfate 75 MG TABLET PO (08:50)
[2023-01-02] MEDS: 0.9 % Sodium Chloride Flush 3 ML SYRINGE IVFLUSH ×2 (08:50→17:43)
[2023-01-02] MEDS: Spironolactone 25 MG TABLET PO (08:50)
[2023-01-02] MEDS: Aspirin Enteric Coated 81 MG TABLET.DR PO (08:50)
[2023-01-02] MEDS: Lidocaine 4 % Patch ADH..PATCH 1 PATCH TRANSDERMA (08:51)
[2023-01-02] MEDS: Furosemide 40 MG/4 ML VIAL 80 MG IVPUSH ×2 (08:51→17:43)
--- NOTE | 2023-01-02 10:37 | HO.PM.IMPN ---
Subjective Subjective Date of Service: 01/02/23 Interval History: fatigued Physical Exam Vital Signs: Vital Signs: Last Vital Signs Temp 98.6 F 01/02/23 07:41 Pulse 64 01/02/23 07:41 Resp 20 01/02/23 07:41 BP 150/58 H 01/02/23 07:41 Pulse Ox 94 01/02/23 07:41 O2 Del Method Nasal Cannula 01/02/23 07:41 O2 Flow Rate 1 01/02/23 07:41 FiO2 35 12/31/22 07:13 Oxygen Flow Rate 6 12/24/22 06:55 BMI result Body Mass Index 36.2 Const: General: comfortable and no acute distress Orientation/consciousness: patient oriented x3 HEENT: Other: Unremarkable Head: Yes normal to inspection Neck: Neck: Yes normal visual inspection Chest: Chest palpation & inspection: normal inspection of the chest Resp: Auscultation: crackles Cardio: Palpation: normal PMI Heart sounds: S1 normal heart sound present, S2 normal heart sound present, no gallops, Murmur heart sound present systolic II/ and at the right sternal border and no rubs GI: Palpation (GI): Soft to palpation Back/Spine/Pelvis: Other: unremarkable Skin: General skin exam: no rashes or lesions noted Neuro: General: patient oriented x3 Extrem: Other: 1-2+ edema General: Yes normal to inspection Psych: Mental Status: mental status grossly normal Objective Data Active Medications Acetaminophen (Acetaminophen 325 Mg Tablet) 650 mg PO Q6H PRN PRN Reason: moderate pain Last Admin: 12/30/22 22:50 Dose: 650 mg Documented By: JOYCE Amlodipine Besylate (Amlodipine Besylate 10 Mg Tablet) 10 mg PO DAILY [facility]; Protocol Last Admin: 01/02/23 08:50 Dose: 10 mg Documented By: NELSY Aspirin (Aspirin Enteric Coated 81 Mg Tablet.) 81 mg PO DAILY [facility] Last Admin: 01/02/23 08:50 Dose: 81 mg Documented By: NELSY Atorvastatin Calcium (Atorvastatin Calcium 40 Mg Tablet) 40 mg PO BEDTIME [facility] Last Admin: 01/01/23 20:03 Dose: 40 mg Documented By: KELLIE Carvedilol (Carvedilol 12.5 Mg Tablet) 12.5 mg PO BID [facility]; Protocol Last Admin: 01/02/23 08:50 Dose: 12.5 mg Documented By: NELSY Clopidogrel Bisulfate (Clopidogrel Bisulfate 75 Mg Tablet) 75 mg PO DAILY [facility] Last Admin: 01/02/23 08:50 Dose: 75 mg Documented By: NELSY Furosemide (Furosemide 40 Mg/4 Ml Vial) 80 mg IVPUSH BID@0900,1800 [facility]; Protocol Last Admin: 01/02/23 08:51 Dose: 80 mg Documented By: NELSY Heparin Sodium (Porcine) (Heparin Sodium,Porcine 5,000 Unit/Ml Vial) 5,000 unit SUBCUT Q8H [facility] Last Admin: 01/02/23 02:35 Dose: 5,000 unit Documented By: KELLIE Insulin Human Lispro (Insulin Lispro 100 Unit/Ml 3 Ml Vial) 0 unit SUBCUT QIDACHS [facility]; Protocol Last Admin: 01/02/23 07:18 Dose: Not Given Documented By: NELSY Non-Admin Reason: No Insulin Coverage Lidocaine (Lidocaine 4 % Patch Adh..Patch) 1 patch TRANSDERMA DAILY [facility]; Protocol Last Admin: 01/02/23 08:51 Dose: 1 patch Documented By: NELSY Nitroglycerin (Nitroglycerin 0.4 Mg Tab.Subl) 0.4 mg SUBLINGUAL Q5MX3 PRN PRN Reason: chest pain Last Admin: 12/27/22 23:58 Dose: 0.4 mg Documented By: SALVATORE Comments: pt denies chest pain Nitroglycerin (Nitroglycerin 2 % Oint 1 Gm Packet) 0.5 inch TRANSDERMA Q6H [facility]; Protocol Last Admin: 01/02/23 05:22 Dose: 0.5 inch Documented By: KELLIE Pharmacy Consult (Consult Rx Perform Med Rec) 1 each MISCELLANE ONCE PRN PRN Reason: Consult order Pregabalin (Pregabalin 25 Mg Capsule) 25 mg PO BEDTIME [facility] Last Admin: 01/01/23 20:03 Dose: 25 mg Documented By: KELLIE Sodium Chloride (0.9 % Sodium Chloride Flush 3 Ml Syringe) 3 ml IVFLUSH QSHIFT [facility] Last Admin: 01/02/23 08:50 Dose: 3 ml Documented By: NELSY Spironolactone (Spironolactone 25 Mg Tablet) 25 mg PO DAILY [facility]; Protocol Last Admin: 01/02/23 08:50 Dose: 25 mg Documented By: NELSY Labs 01/02/23 06:18 01/02/23 06:18 Labs: Laboratory Results - last 24 hr 01/01/23 01/01/23 01/01/23 11:38 16:02 19:37 MCV MCH MCHC RDW Plt Count MPV Absolute Nucleated RBC Nucleated RBC % (auto) Anion Gap Estim Creat Clear Calc Estimated GFR POC Glucose 146 H 174 H 224 H Fasting Glucose Calcium Magnesium 01/02/23 01/02/23 01/02/23 06:18 06:18 07:01 MCV 92.2 MCH 30.0 MCHC 32.6 RDW 15.9 Plt Count 206 MPV 11.1 Absolute Nucleated RBC 0.000 Nucleated RBC % (auto) 0.0 Anion Gap 17 Estim Creat Clear Calc 18.6 Estimated GFR 16 POC Glucose 84 Fasting Glucose 87 Calcium 9.0 Magnesium 1.8 Assessment and Plan (1) Acute myocardial infarction of posterolateral wall: Status: Acute (2) Acute pulmonary edema: Status: Acute (3) Symptomatic anemia: Status: Acute (4) Acute respiratory failure with hypoxia: Status: Acute Plan 82F PMH chronic hypoxic respiratory failure on 2L home o2, chronic diastolic chf, CKD IV, obesity, HTN, HLD, preDM, presented with shortness of breath acute on chronic hypoxic respiratory failure due to acute on chronic diastolic chf On 3L O2 now, was on BiPAP at night, qualified for overnight o2 Increased IV lasix 80 bid, s/p one dose of metolazone 2.5mg 01/01/23 with good increase in output Monitor I\O wean O2 down as tolerated Acute coronary syndrome EKG showed lateral distribution Dropped Hb while on heparin before, required transfusion. so she was not considered for intervention with high risk of bleeding with no clear source Currently no chest pain but risk of recurrent angina and heart failure still high.? ECHO showed Moderate to severe LV systolic dysfunction with grade 2 diastolic dysfunction with regional wall motion abnormality suggestive underlying coronary artery disease cardio to approach with conservative measures and hold on intervention, family on board off Heparin drip On Coreg Aspirin, Plavix AtorvaStatin Family to consider outpatient further work up and intervention after this hospital stay Acute on chronic symptomatic anemia Improved and stable around 8 No overt bleeding, negative occult but likely GI loss Transfused total of 4 unit of blood, follow CBC NAHID on cKD IV back to baseline, stable monitor BMP obesity weight loss recomended htn amlodipine hld statin dvt prophylaxis on sq heparin full code PT eval reason for continued hospitalization:iv diuresis, still very overloaded Time Spent With Patient Time: Total time managing care of this patient today ____ minutes. Quality Stroke Does the patient have a stroke diagnosis?: No VTE Prior VTE?: No VTE Risk Level:: Medical - moderate - high VTE Device Contraindication: Treatment Not Indicated VTE Drug Contraindication: N/A - Med Ordered
[2023-01-02 11:26] LABS: Glucose, Whole Blood 177 mg/dL (60-115)
[2023-01-02] MEDS: Insulin Lispro 100 UNIT/ML 3 ML VIAL SUBCUT ×2 (12:11→20:46)
[2023-01-02 16:12] LABS: Glucose, Whole Blood 141 mg/dL (60-115)
[2023-01-02 19:40] LABS: Glucose, Whole Blood 157 mg/dL (60-115)
[2023-01-02] MEDS: Atorvastatin Calcium 40 MG TABLET PO (20:46)
[2023-01-02] MEDS: Pregabalin 25 MG CAPSULE PO (20:46)
[2023-01-03] VITALS (7 sets, daily range): BP systolic 137–174; BP diastolic 63–74; PULSE 62–66; RESP 18–20; TEMP 36.4–37.1; O2SAT 93–96; BMI 32.3
[2023-01-03] MEDS: Nitroglycerin 2 % Oint 1 GM Packet 0.5 INCH TRANSDERMA ×4 (00:35→17:06)
[2023-01-03] MEDS: 0.9 % Sodium Chloride Flush 3 ML SYRINGE IVFLUSH ×4 (00:39→19:49)
[2023-01-03] MEDS: Heparin Sodium,Porcine 5,000 UNIT/ML VIAL 5000 UNIT SUBCUT ×2 (03:19→11:32)
[2023-01-03 06:45] LABS: Hematocrit 25.9 % (37.0-47.0); Hemoglobin 8.4 g/dl (12.0-16.0); Mean Corpuscular HGB Conc 32.4 g/dl (31.0-35.0); Mean Corpuscular Volume 92.5 fL (80.0-98.0); Mean Platelet Volume 11.5 fL (9.4-12.3); Platelet Count 209 X10*3/uL (160-400); Red Cell Distribution Width 15.8 % (11.0-16.0); White Blood Count 5.6 X10*3/uL (4.8-10.8)
[2023-01-03 07:00] LABS: Anion Gap 17 (12-20); Blood Urea Nitrogen 124 mg/dL (9-16); Carbon Dioxide 25 mmol/L (22-29); Chloride 104 mmol/L (96-108); Creatinine Clr Calc Pharmacy 18.4; Estimated Glomerular Filt Rate 15; Glucose Fasting 92 mg/dL (60-99); Magnesium 1.8 mg/dL (1.6-2.6); Potassium 4.5 mmol/L (3.3-5.1); Sodium 141 mmol/L (135-145)
[2023-01-03 07:03] LABS: B Type Natriuretic Peptide 909 pg/mL (<100)
[2023-01-03 07:05] LABS: Glucose, Whole Blood 95 mg/dL (60-115)
[2023-01-03] MEDS: Aspirin Enteric Coated 81 MG TABLET.DR PO (07:55)
[2023-01-03] MEDS: carvediloL 12.5 MG TABLET PO ×2 (07:56→19:48)
[2023-01-03] MEDS: Lidocaine 4 % Patch ADH..PATCH 1 PATCH TRANSDERMA (07:56)
[2023-01-03] MEDS: Spironolactone 25 MG TABLET PO (07:56)
[2023-01-03] MEDS: Furosemide 40 MG/4 ML VIAL 80 MG IVPUSH ×2 (07:56→17:06)
[2023-01-03] MEDS: amLODIPine Besylate 10 MG TABLET PO (07:56)
[2023-01-03] MEDS: Clopidogrel Bisulfate 75 MG TABLET PO (07:56)
--- NOTE | 2023-01-03 10:14 | MHC.CLN ---
F/U PO INTAKE 75-100% X2 MEALS DIET RX: 2000DM-APPROPRIATE PT RECEIVING ENSURE CLEAR TID TO PROVIDE 720KCALS, 24G PROTEIN SUPPLEMENT IS RENAL FRIENDLY CONTINUE TO MONITOR PO INTAKE
--- NOTE | 2023-01-03 10:53 | P.PNIM_ITS ---
Subjective Subjective Date of Service: 01/03/23 Interval History: improving Physical Exam Vital Signs: Vital Signs: Last Vital Signs Temp 98.2 F 01/03/23 07:26 Pulse 62 01/03/23 07:26 Resp 20 01/03/23 07:26 BP 161/70 H 01/03/23 07:26 Pulse Ox 94 01/03/23 07:26 O2 Del Method Nasal Cannula 01/03/23 07:26 O2 Flow Rate 1 01/03/23 07:26 FiO2 35 12/31/22 07:13 Oxygen Flow Rate 6 12/24/22 06:55 BMI result Body Mass Index 32.3 Const: General: comfortable and no acute distress Orien tation/consciousness: patient oriented x3 HEENT: Other: Unremarkable Head: Yes normal to inspection Neck: Neck: Yes normal visual inspection Chest: Chest palpation & inspection: normal inspection of the chest Resp: Auscultation: crackles Cardio: Palpation: normal PMI Heart sounds: S1 normal heart sound present, S2 normal heart sound present, no gallops, Murmur heart sound present systolic II/ and at the right sternal border and no rubs GI: Palpation (GI): Soft to palpation Back/Spine/Pelvis: Other: unremarkable Skin: General skin exam: no rashes or lesions noted Neuro: General: patient oriented x3 Extrem: Other: 1-2+ edema General: Yes normal to inspection Psych: Mental Status: mental status grossly normal Objective Data Active Medications Acetaminophen (Acetaminophen 325 Mg Tablet) 650 mg PO Q6H PRN PRN Reason: moderate pain Last Admin: 12/30/22 22:50 Dose: 650 mg Documented By: JOYCE Amlodipine Besylate (Amlodipine Besylate 10 Mg Tablet) 10 mg PO DAILY [facility]; Protocol Last Admin: 01/03/23 07:56 Dose: 10 mg Documented By: NELSY Aspirin (Aspirin Enteric Coated 81 Mg Tablet.) 81 mg PO DAILY [facility] Last Admin: 01/03/23 07:55 Dose: 81 mg Documented By: NELSY Atorvastatin Calcium (Atorvastatin Calcium 40 Mg Tablet) 40 mg PO BEDTIME [facility] Last Admin: 01/02/23 20:46 Dose: 40 mg Documented By: JANNETTE Carvedilol (Carvedilol 12.5 Mg Tablet) 12.5 mg PO BID [facility]; Protocol Last Admin: 01/03/23 07:56 Dose: 12.5 mg Documented By: NELSY Clopidogrel Bisulfate (Clopidogrel Bisulfate 75 Mg Tablet) 75 mg PO DAILY [facility] Last Admin: 01/03/23 07:56 Dose: 75 mg Documented By: NELSY Furosemide (Furosemide 40 Mg/4 Ml Vial) 80 mg IVPUSH BID@0900,1800 [facility]; Protocol Last Admin: 01/03/23 07:56 Dose: 80 mg Documented By: NELSY Heparin Sodium (Porcine) (Heparin Sodium,Porcine 5,000 Unit/Ml Vial) 5,000 unit SUBCUT Q8H [facility] Last Admin: 01/03/23 03:19 Dose: 5,000 unit Documented By: CINDY Insulin Human Lispro (Insulin Lispro 100 Unit/Ml 3 Ml Vial) 0 unit SUBCUT QIDACHS [facility]; Protocol Last Admin: 01/03/23 07:13 Dose: Not Given Documented By: NELSY Non-Admin Reason: No Insulin Coverage Lidocaine (Lidocaine 4 % Patch Adh..Patch) 1 patch TRANSDERMA DAILY [facility]; Protocol Last Admin: 01/03/23 07:56 Dose: 1 patch Documented By: NELSY Nitroglycerin (Nitroglycerin 0.4 Mg Tab.Subl) 0.4 mg SUBLINGUAL Q5MX3 PRN PRN Reason: chest pain Last Admin: 12/27/22 23:58 Dose: 0.4 mg Documented By: SALVATORE Comments: pt denies chest pain Nitroglycerin (Nitroglycerin 2 % Oint 1 Gm Packet) 0.5 inch TRANSDERMA Q6H [facility]; Protocol Last Admin: 01/03/23 04:24 Dose: 0.5 inch Documented By: CINDY Pharmacy Consult (Consult Rx Perform Med Rec) 1 each MISCELLANE ONCE PRN PRN Reason: Consult order Pregabalin (Pregabalin 25 Mg Capsule) 25 mg PO BEDTIME [facility] Last Admin: 01/02/23 20:46 Dose: 25 mg Documented By: JANNETTE Sodium Chloride (0.9 % Sodium Chloride Flush 3 Ml Syringe) 3 ml IVFLUSH QSHIFT [facility] Last Admin: 01/03/23 07:56 Dose: 3 ml Documented By: NELSY Spironolactone (Spironolactone 25 Mg Tablet) 25 mg PO DAILY [facility]; Protocol Last Admin: 01/03/23 07:56 Dose: 25 mg Documented By: NELSY Labs 01/03/23 06:17 01/03/23 06:17 Labs: Laboratory Results - last 24 hr 01/02/23 01/02/23 01/02/23 11:21 16:07 19:36 MCV MCH MCHC RDW Plt Count MPV Absolute Nucleated RBC Nucleated RBC % (auto) Anion Gap Estim Creat Clear Calc Estimated GFR POC Glucose 177 H 141 H 157 H Fasting Glucose Calcium Magnesium B-Natriuretic Peptide 01/03/23 01/03/23 01/03/23 06:17 06:17 06:17 MCV 92.5 MCH 30.0 MCHC 32.4 RDW 15.8 Plt Count 209 MPV 11.5 Absolute Nucleated RBC 0.000 Nucleated RBC % (auto) 0.0 Anion Gap 17 Estim Creat Clear Calc 18.4 Estimated GFR 15 POC Glucose Fasting Glucose 92 Calcium 9.0 Magnesium 1.8 B-Natriuretic Peptide 909 H 01/03/23 06:57 MCV MCH MCHC RDW Plt Count MPV Absolute Nucleated RBC Nucleated RBC % (auto) Anion Gap Estim Creat Clear Calc Estimated GFR POC Glucose 95 Fasting Glucose Calcium Magnesium B-Natriuretic Peptide Assessment and Plan (1) Acute myocardial infarction of posterolateral wall: Status: Acute (2) Acute pulmonary edema: Status: Acute (3) Symptomatic anemia: Status: Acute (4) Acute respiratory failure with hypoxia: Status: Acute Plan 82F PMH chronic hypoxic respiratory failure on 2L home o2, chronic diastolic chf, CKD IV, obesity, HTN, HLD, preDM, presented with shortness of breath acute on chronic hypoxic respiratory failure due to acute on chronic diastolic chf On 1L O2 now, was on BiPAP at night, qualified for overnight o2 Increased IV lasix 80 bid, s/p one dose of metolazone 2.5mg 01/01/23 with good increase in output Monitor I\O wean O2 down as tolerated Acute coronary syndrome EKG showed lateral distribution Dropped Hb while on heparin before, required transfusion. so she was not considered for intervention with high risk of bleeding with no clear source Currently no chest pain but risk of recurrent angina and heart failure still high.? ECHO showed Moderate to severe LV systolic dysfunction with grade 2 diastolic dysfunction with regional wall motion abnormality suggestive underlying coronary artery disease cardio to approach with conservative measures and hold on intervention, family on board off Heparin drip On Coreg Aspirin, Plavix AtorvaStatin Family to consider outpatient further work up and intervention after this hospital stay Acute on chronic symptomatic anemia Improved and stable around 8 No overt bleeding, negative occult but likely GI loss Transfused total of 4 unit of blood, follow CBC NAHID on cKD IV back to baseline, stable monitor BMP obesity weight loss recomended htn amlodipine hld statin dvt prophylaxis on sq heparin full code PT eval reason for continued hospitalization: safe dispo Time Spent With Patient Time: Total time managing care of this patient today ____ minutes. Quality Stroke Does the patient have a stroke diagnosis?: No VTE Prior VTE?: No VTE Risk Level:: Medical - moderate - high VTE Device Contraindication: Treatment Not Indicated VTE Drug Contraindication: N/A - Med Ordered
[2023-01-03 11:10] LABS: Glucose, Whole Blood 167 mg/dL (60-115)
[2023-01-03] MEDS: Insulin Lispro 100 UNIT/ML 3 ML VIAL SUBCUT ×3 (11:32→19:59)
--- NOTE | 2023-01-03 12:02 | MHC.CM.PN ---
EMR REVIEWED AND PER MD ROUNDS, PT IS MEDICALLY CLEARED FOR DC HOWEVER HER DAUGHTERS/CAREGIVERS ARE NOW UNABLE TO CARE FOR HER AT HOME ANY LONGER . PT AND DAUGHTERS ARE REQUESTING PLACEMENT IN THE [place] [facility] FOR LTC. BED SEARCH UNDERWAY. MD AWARE. CM WILL CONTINUE TO FOLLOW FOR SAFE DISPO PLAN.
[2023-01-03 16:06] LABS: Glucose, Whole Blood 202 mg/dL (60-115)
[2023-01-03 19:36] LABS: Glucose, Whole Blood 171 mg/dL (60-115)
[2023-01-03] MEDS: Pregabalin 25 MG CAPSULE PO (19:48)
[2023-01-03] MEDS: Atorvastatin Calcium 40 MG TABLET PO (19:48)
--- NOTE | 2023-01-03 19:54 | PM.EVENT ---
Event Note Date of Service: 01/03/23 Event Note: Nurse reported that patient had large black starry stool. Will consult GI and give IV Protonix. Keep NPO after midnight Time Spent With Patient Time: Total time managing care of this patient today ____ minutes.
--- NOTE | 2023-01-03 19:56 | PC.NURSE ---
Addendum entered by Justyna Morales RN 01/04/23 06:31: patient had 2 episode of black tarry stool this shift. Addendum entered by Justyna Morales RN 01/04/23 00:54: 1948- pt had a huge black tarry stool. Reported to . Heparin SQ was held. Will make pt NPO after midnight per MD advise and consult GI. Original Note: 1927 notified that pt BP was elevated. OK to give meds early.
[2023-01-03] MEDS: Pantoprazole Sodium 40 MG/10 ML VIAL 80 MG IVPUSH (20:09)
[2023-01-04] VITALS (9 sets, daily range): BP systolic 157–169; BP diastolic 69–79; PULSE 54–80; RESP 17–20; TEMP 36.2–36.7; O2SAT 98–100; BMI 30.2
[2023-01-04] MEDS: Nitroglycerin 2 % Oint 1 GM Packet 0.5 INCH TRANSDERMA ×4 (00:24→17:51)
[2023-01-04 07:58] LABS: Glucose, Whole Blood 98 mg/dL (60-115)
[2023-01-04 08:25] LABS: Hematocrit 25.5 % (37.0-47.0); Hemoglobin 8.2 g/dl (12.0-16.0); Mean Corpuscular HGB Conc 32.2 g/dl (31.0-35.0); Mean Corpuscular Hemoglobin 29.8 pg (27.0-33.0); Mean Corpuscular Volume 92.7 fL (80.0-98.0); Mean Platelet Volume 11.5 fL (9.4-12.3); Platelet Count 205 X10*3/uL (160-400); Red Blood Count 2.75 X10*6/uL (4.20-5.50); Red Cell Distribution Width 15.9 % (11.0-16.0); White Blood Count 5.9 X10*3/uL (4.8-10.8)
[2023-01-04 08:40] LABS: Anion Gap 16 (12-20); Carbon Dioxide 24 mmol/L (22-29); Chloride 105 mmol/L (96-108); Estimated Glomerular Filt Rate 13; Glucose Random 93 mg/dL (60-115); Potassium 4.3 mmol/L (3.3-5.1); Sodium 141 mmol/L (135-145)
--- NOTE | 2023-01-04 09:01 | PM.GICN ---
History of Present Illness Data of Consult Service Date: 01/04/23 Requesting physician: Soo Steele Primary Care Provider: Kay Mata MD HPI Reason for consult: Black tarry stools 82 YF with chronic hypoxic respiratory failure on 2L home o2, chronic diastolic chf, CKD IV, obesity, HTN, HLD, preDM, admitted to [facility] on 12/24/22 with 2 day hx of shortness of breath, worse on minimal exertion and acute on chronic lower extremity edema. orthopnea. No obvious triggering events. In the ED noted to be hypoxic, placed on cpap and given diuretics with significnat improvement, elevated troponin and bnp, started on iv heparin. Pt was seen by cardiology and suspected to have acute coronary infarct with pulmonary edema. Echocardiogram with LVEF of 30-35%.? Wall motion abnormalities in the inferior/inferolateral wall as well as apex.? Moderate diastolic dysfunction. BUN is 110.? Creatinine is 2.88.? Troponin peak was exceeding 3600. Cardiac BNP was peaking at 1500 and improved to 900. Pt was treated conservatively given her age, bed bound status, renal insifficiency and multiple comorbidities. Currently listed to be on aspirin, Plavix, carvedilol, amlodipine, NTG paste, atorvastatin.? 01/03/23 Nurse reported that patient had large black starry stool.? Patient was started on IV Protonix and made NPO. Pt's nurse reported 2 black BMs last night and no BM today. History obtained from patient and her daughter who was at the bedside and interpreted for the patient (pt lives with the daughter) Daughter reports pt complains of intermittent abdominal pain. She denies nausea or vomiting and has a good appetite. She has intermittent constipation alternating with diarrhea and uses stool softeners prn. Stool are intermittently dark. Labs showed H & H of 8.4 & 25.9 yesterday and 8.2 & 25.5 today (pt's baseline Hb varies between 7 and 9.7 and was 7.6 on admission) PAST GI HISTORY BY REVIEW OF MEDICAL RECORDS: 12/2020 PATIENT HAD AN EGD AND COLONOSCOPY BY DR. OCONNOR: Impression and Post Procedure Diagnosis: Endoscopy Findings: duodenitis, erosions, ulceration gastritis esophagitis Colonoscopy Findings: polyps internal hemorrhoids diverticular disease Plan: Await Pathology results Repeat Colonoscopy in 6-12 months with attention to prep?(NEXT TIME USE ADULT SCOPE) High fiber diet leaflet avoid straining at stool, epsom salts and sitz bath, anusol supps or cream as needed: BIOPSIES SHOWED: A.? Duodenum, biopsy:? Duodenal mucosa within normal limits. B.? Stomach, biopsy:? Oxyntic mucosa with mild chronic inactive inflammation; no Helicobacter organisms seen. C.? Colon, transverse, polypectomy:? Tubular adenoma; no high grade dysplasia or carcinoma seen. pantoprazole 40 mg OD, if h pylori pos then treat, her anemia is likely 2/2 duduodenal ucleration and erosion. Review of Systems Review of Systems: Yes all other systems are reviewed and are negative Constitutional: Constitutional: Reports as per HPI and Reports no additional constitutional complaints Eyes: Eyes: Reports as per HPI and Denies no additional eye complaints ENT: Denies system reviewed and no additional complaints, except as documented and Reports as per HPI Cardiovascular: Cardiovascular: Reports as per HPI, Reports no additional cardiovascular complaints, Denies acrocyanosis, Denies cool extremities, Denies chest pain, Denies leg edema, Denies lightheadedness, Denies palpitations and Denies dyspnea Respiratory: Respiratory: Reports as per HPI, Denies no additional respiratory complaints and Denies dyspnea Gastrointestinal: Gastrointestinal: Reports as per HPI and Denies no additional gastrointestinal complaints Genitourinary: Genitourinary: Reports as per HPI Musculoskeletal: Musculoskeletal: Reports no additional musculoskeletal complaints and Reports as per HPI Integumentary/Breasts: Skin/Breast: Reports system reviewed and no additional complaints, except as docu Neurologic: Reports system reviewed and no additional complaints, except as documented and Reports as per HPI Psychiatric: Psychiatric: Reports no additional psychiatric complaints and Reports as per HPI Endocrine: Endocrine: Reports no additional endocrine complaints, Reports as per HPI and Denies palpitations Hematologic/Lymphatic: Hematologic/Lymphatic: Reports no additional hematologic/lymphatic complaints and Reports as per HPI Allergic/Immunologic: Allergic/Immunologic: Reports no additional allergic/immunologic complaints and Reports as per HPI [facility] Past Medical History Medical History (Updated 01/04/23 @ 11:56 by Aranza Keller MD) Abscess of forearm, right Acute on chronic diastolic heart failure Acute respiratory failure with hypoxia Anemia B12 deficiency Chronic renal insufficiency CKD (chronic kidney disease) Congestive heart failure Diabetes Femoral artery stenosis Gram-positive bacteremia High cholesterol Hypertension Hypoxia Lower extremity edema Psoriasis of scalp PVD (peripheral vascular disease) Family History Family History Father No problems noted. Mother No problems noted. Surgical History Surgical History History of female sterilization History of shoulder surgery Social History Social History Household Members: Family Household Members Other:: Daughter Housing: House Do you presently have visiting nurse or other home services: Yes Alcohol intake: former Patient Tobacco Use Status: Never used Tobacco Smoked in Last 30 Days: No e-Cigarette/Vaping Use: Never Used Second Hand Smoke Exposure: No Use of substances other than those prescribed or required for medical reasons: No Currently Displaying Signs/Symptoms of Drug Intoxication Withdrawal: No Any prior treatment program specific to substance use: No Have you been hit, kicked, punched, or otherwise hurt by someone within the past year? If so, by whom?: No Do you feel safe in your current relationship?: No Current Relationship Is there a partner from a previous relationship who is making you feel unsafe now?: No Are you made to feel afraid or neglected: No Advance Directives: Yes Advance Directives on File: Yes Advance Directives Date on File: 04/18/21 Do you have thoughts of harming others: None Do you have a plan to hurt others: No Plan Recently lost weight without trying: No Nutrition Risks: No Nutritional Risk Patient : No service: No Current occupational status: retired and disabled Cognitive needs: Yes Hearing needs: No Vision needs: No Meds Allergies Allergy/AdvReac Type Severity Reaction Status Date / Time Iodinated Contrast Media Allergy Unknown UNKNOWN Verified 08/13/22 16:05 [IODINATED CONTRAST MEDIA] Active Medications: Current Medications Acetaminophen (Acetaminophen 325 Mg Tablet) 650 mg PO Q6H PRN PRN Reason: moderate pain Last Admin: 12/30/22 22:50 Dose: 650 mg Amlodipine Besylate (Amlodipine Besylate 10 Mg Tablet) 10 mg PO DAILY [facility]; Protocol Last Admin: 01/03/23 07:56 Dose: 10 mg Atorvastatin Calcium (Atorvastatin Calcium 40 Mg Tablet) 40 mg PO BEDTIME [facility] Last Admin: 01/03/23 19:48 Dose: 40 mg Carvedilol (Carvedilol 12.5 Mg Tablet) 12.5 mg PO BID [facility]; Protocol Last Admin: 01/03/23 19:48 Dose: 12.5 mg Clopidogrel Bisulfate (Clopidogrel Bisulfate 75 Mg Tablet) 75 mg PO DAILY [facility] Last Admin: 01/03/23 07:56 Dose: 75 mg Furosemide (Furosemide 40 Mg/4 Ml Vial) 80 mg IVPUSH BID@0900,1800 [facility]; Protocol Last Admin: 01/03/23 17:06 Dose: 80 mg Insulin Human Lispro (Insulin Lispro 100 Unit/Ml 3 Ml Vial) 0 unit SUBCUT QIDACHS [facility]; Protocol Last Admin: 01/04/23 08:01 Dose: Not Given Lidocaine (Lidocaine 4 % Patch Adh..Patch) 1 patch TRANSDERMA DAILY [facility]; Protocol Last Admin: 01/03/23 07:56 Dose: 1 patch Nitroglycerin (Nitroglycerin 0.4 Mg Tab.Subl) 0.4 mg SUBLINGUAL Q5MX3 PRN PRN Reason: chest pain Last Admin: 12/27/22 23:58 Dose: 0.4 mg Nitroglycerin (Nitroglycerin 2 % Oint 1 Gm Packet) 0.5 inch TRANSDERMA Q6H [facility]; Protocol Last Admin: 01/04/23 06:06 Dose: 0.5 inch Pharmacy Consult (Consult Rx Perform Med Rec) 1 each MISCELLANE ONCE PRN PRN Reason: Consult order Pregabalin (Pregabalin 25 Mg Capsule) 25 mg PO BEDTIME [facility] Last Admin: 01/03/23 19:48 Dose: 25 mg Sodium Chloride (0.9 % Sodium Chloride Flush 3 Ml Syringe) [facility] Last Admin: 01/03/23 19:49 Dose: 3 ml Spironolactone (Spironolactone 25 Mg Tablet) 25 mg PO DAILY [facility]; Protocol Last Admin: 01/03/23 07:56 Dose: 25 mg Home Medications Medication Instructions Recorded Confirmed Last Taken Type acetaminophen 325 mg tablet 650 mg PO Q6H PRN Pain 09/10/21 12/24/22 Unknown History amlodipine 10 mg tablet 10 mg PO BEDTIME 08/17/22 12/24/22 08/16/22 History cyanocobalamin (vitamin B-12) 1,000 mcg PO BEDTIME 08/17/22 12/24/22 08/16/22 History 1,000 mcg tablet (Vitamin B-12) multivitamin with folic acid 400 1 tab PO BEDTIME 08/17/22 12/24/22 08/16/22 History mcg tablet Physical Exam Vital Signs: Vital Signs: Last Vital Signs Temp 97.2 F 01/04/23 07:41 Pulse 57 01/04/23 07:41 Resp 17 01/04/23 07:41 BP 159/69 H 01/04/23 07:41 Pulse Ox 100 01/04/23 07:41 O2 Del Method Nasal Cannula 01/04/23 07:41 O2 Flow Rate 1.5 01/04/23 07:41 FiO2 35 01/04/23 04:00 Oxygen Flow Rate 6 12/24/22 06:55 BMI result Body Mass Index 30.2 Const: General: no acute distress and ill appearing Nutritional Appearance: obese Orientation/consciousness: patient oriented x3 Limitations: language barrier and other limitations (bed bound) HEENT: Head: Yes normal to inspection Ears: hearing grossly normal bilaterally Eyes: Sclerae: sclerae normal Pupils: Equal, round and reactive pupils present Neck: Neck: Yes normal visual inspection Chest: Chest palpation & inspection: normal inspection of the chest Resp: Effort & Inspection: normal respiratory effort Auscultation: clear to auscultation bilaterally Cardio: Palpation: normal PMI Rate: regular rate Rhythm: regular rhythm Heart sounds: S1 normal heart sound present, S2 normal heart sound present and no murmurs GI: Palpation (GI): Soft to palpation, nontender and No hepatosplenomegaly present Auscultation: normal bowel sounds Rectal Exam - Female: deferred Skin: General skin exam: no rashes or lesions noted Neuro: General: patient oriented x3, gait normal and moves all extremities Cranial nerves: Yes Equal, round and reactive pupils present Extrem: General: Yes pedal edema (bilateral pitting edema) Psych: Appearance: grossly normal Mental Status: mental status grossly normal Results Labs 01/04/23 08:05 01/04/23 08:05 Labs: Short CBC 01/04/23 Range/Units 08:05 WBC 5.9 (4.8-10.8) X10*3/uL Hgb 8.2 L (12.0-16.0) g/dl Hct 25.5 L (37.0-47.0) % Plt Count 205 (160-400) X10*3/uL BMP 01/04/23 08:05 Sodium 141 Potassium 4.3 Chloride 105 Carbon Dioxide 24 Creatinine 3.28 H Calcium 9.0 Microbiology Microbiology Results: Microbiology 12/24/22 07:43 Blood - Venous Blood Culture - Final No growth after 5 days. 12/24/22 08:23 Blood - Venous Blood Culture - Final Coag negative Staphylococcus 12/24/22 Unknown Urine clean catch - Urine allen top Urine Culture - Final No growth. Assessment and Plan (1) Acute GI bleeding: Status: Acute (2) Anemia: Status: Acute Plan 82 year old [place] speaking female with chronic hypoxic respiratory failure on 2L home o2, chronic diastolic chf, CKD IV, obesity, HTN, HLD, preDM, admitted to [facility] on 12/24/22 with 2 day hx of shortness of breath, worse on minimal exertion and acute on chronic lower extremity edema. Pt was seen by cardiology and suspected to have acute coronary infarct with pulmonary edema. Echocardiogram with LVEF of 30-35%.? Wall motion abnormalities in the inferior/inferolateral wall as well as apex.? Moderate diastolic dysfunction. BUN is 110.? Creatinine is 2.88.? Troponin peak was exceeding 3600. Cardiac BNP was peaking at 1500 and improved to 900. Pt was treated conservatively given her age, bed bound status, renal insifficiency and multiple comorbidities. Currently listed to be on aspirin, Plavix, carvedilol, amlodipine, NTG paste, atorvastatin.? 01/03/23 Nurse reported that patient had large black starry stool.? Patient was started on IV Protonix and made NPO. Pt's nurse reported 2 black BMs last night and no BM today. Labs showed H & H of 8.4 & 25.9 yesterday and 8.2 & 25.5 today iron studies on admission were suggestive of anemia of chronic disease. (pt's baseline Hb varies between 7 and 9.7 and was 7.6 on admission) RECOMMENDATIONS: 1. Continue IV PPI twice daily x 48 hrs and then switch to Omeprazole 40 mg twice daily if H&H remains stable. 2. Repeat CBC at 12 pm today and if stable then daily. 3. Recommend conservative management for now since pt is high risk for EGD and anesthesia given recent [facility] and multiple comorbidities. Time Spent With Patient Time: Total time managing care of this patient today ____ minutes. Procedures Date of Service Date of Service: 01/05/23
[2023-01-04 09:02] LABS: Blood Urea Nitrogen 132 mg/dL (9-16)
--- NOTE | 2023-01-04 09:10 | HO.PM.IMPN ---
Subjective Subjective Date of Service: 01/04/23 Interval History: tarry stools overnight Physical Exam Vital Signs: Vital Signs: Last Vital Signs Temp 97.2 F 01/04/23 07:41 Pulse 57 01/04/23 07:41 Resp 17 01/04/23 07:41 BP 159/69 H 01/04/23 07:41 Pulse Ox 100 01/04/23 07:41 O2 Del Method Nasal Cannula 01/04/23 07:41 O2 Flow Rate 1.5 01/04/23 07:41 FiO2 35 01/04/23 04:00 Oxygen Flow Rate 6 12/24/22 06:55 BMI result Body Mass Index 30.2 Const: General: comfortable and no acute distress Orientation/consciousness: patient oriented x3 HEENT: Other: Unremarkable Head: Yes normal to inspection Neck: Neck: Yes normal visual inspection Chest: Chest palpation & inspection: normal inspection of the chest Resp: Auscultation: crackles Cardio: Palpation: normal PMI Heart sounds: S1 normal heart sound present, S2 normal heart sound present, no gallops, Murmur heart sound present systolic II/ and at the right sternal border and no rubs GI: Palpation (GI): Soft to palpation Back/Spine/Pelvis: Other: unremarkable Skin: General skin exam: no rashes or lesions noted Neuro: General: patient oriented x3 Extrem: Other: 1-2+ edema General: Yes normal to inspection Psych: Mental Status: mental status grossly normal Objective Data Active Medications Acetaminophen (Acetaminophen 325 Mg Tablet) 650 mg PO Q6H PRN PRN Reason: moderate pain Last Admin: 12/30/22 22:50 Dose: 650 mg Documented By: JOYCE Amlodipine Besylate (Amlodipine Besylate 10 Mg Tablet) 10 mg PO DAILY [facility]; Protocol Last Admin: 01/03/23 07:56 Dose: 10 mg Documented By: NELSY Atorvastatin Calcium (Atorvastatin Calcium 40 Mg Tablet) 40 mg PO BEDTIME [facility] Last Admin: 01/03/23 19:48 Dose: 40 mg Documented By: CORNELIA Carvedilol (Carvedilol 12.5 Mg Tablet) 12.5 mg PO BID [facility]; Protocol Last Admin: 01/03/23 19:48 Dose: 12.5 mg Documented By: CORNELIA Clopidogrel Bisulfate (Clopidogrel Bisulfate 75 Mg Tablet) 75 mg PO DAILY [facility] Last Admin: 01/03/23 07:56 Dose: 75 mg Documented By: NELSY Furosemide (Furosemide 40 Mg/4 Ml Vial) 80 mg IVPUSH BID@0900,1800 [facility]; Protocol Last Admin: 01/03/23 17:06 Dose: 80 mg Documented By: NELSY Insulin Human Lispro (Insulin Lispro 100 Unit/Ml 3 Ml Vial) 0 unit SUBCUT QIDACHS [facility]; Protocol Last Admin: 01/04/23 08:01 Dose: Not Given Documented By: RODERICK Non-Admin Reason: No Insulin Coverage Lidocaine (Lidocaine 4 % Patch Adh..Patch) 1 patch TRANSDERMA DAILY [facility]; Protocol Last Admin: 01/03/23 07:56 Dose: 1 patch Documented By: NELSY Nitroglycerin (Nitroglycerin 0.4 Mg Tab.Subl) 0.4 mg SUBLINGUAL Q5MX3 PRN PRN Reason: chest pain Last Admin: 12/27/22 23:58 Dose: 0.4 mg Documented By: SALVATORE Comments: pt denies chest pain Nitroglycerin (Nitroglycerin 2 % Oint 1 Gm Packet) 0.5 inch TRANSDERMA Q6H [facility]; Protocol Last Admin: 01/04/23 06:06 Dose: 0.5 inch Documented By: CORNELIA Pharmacy Consult (Consult Rx Perform Med Rec) 1 each MISCELLANE ONCE PRN PRN Reason: Consult order Pregabalin (Pregabalin 25 Mg Capsule) 25 mg PO BEDTIME [facility] Last Admin: 01/03/23 19:48 Dose: 25 mg Documented By: CORNELIA Sodium Chloride (0.9 % Sodium Chloride Flush 3 Ml Syringe) 3 ml IVFLUSH QSHIFT [facility] Last Admin: 01/03/23 19:49 Dose: 3 ml Documented By: CORNELIA Spironolactone (Spironolactone 25 Mg Tablet) 25 mg PO DAILY [facility]; Protocol Last Admin: 01/03/23 07:56 Dose: 25 mg Documented By: NELSY Labs 01/04/23 08:05 01/04/23 08:05 Labs: Laboratory Results - last 24 hr 01/03/23 01/03/23 01/03/23 11:06 16:03 19:31 MCV MCH MCHC RDW Plt Count MPV Absolute Nucleated RBC Nucleated RBC % (auto) Anion Gap Estim Creat Clear Calc Estimated GFR POC Glucose 167 H 202 H 171 H Random Glucose Calcium 01/04/23 01/04/23 01/04/23 07:40 08:05 08:05 MCV 92.7 MCH 29.8 MCHC 32.2 RDW 15.9 Plt Count 205 MPV 11.5 Absolute Nucleated RBC 0.000 Nucleated RBC % (auto) 0.0 Anion Gap 16 Estim Creat Clear Calc 15.0 Estimated GFR 13 POC Glucose 98 Random Glucose 93 Calcium 9.0 Assessment and Plan (1) Acute myocardial infarction of posterolateral wall: Status: Acute (2) Acute pulmonary edema: Status: Acute (3) Symptomatic anemia: Status: Acute (4) Acute respiratory failure with hypoxia: Status: Acute Plan 82F PMH chronic hypoxic respiratory failure on 2L home o2, chronic diastolic chf, CKD IV, obesity, HTN, HLD, preDM, presented with shortness of breath acute on chronic hypoxic respiratory failure due to acute on chronic diastolic chf On 1L O2 now, was on BiPAP at night, qualified for overnight o2 s/p one dose of metolazone 2.5mg 01/01/23 with good increase in output will decrease back down to lasix 40mg bid po Monitor I\O wean O2 down as tolerated tarry stools no drop in hgb on ppi iv bid gi to see monitor cbc Acute coronary syndrome EKG showed lateral distribution Dropped Hb while on heparin before, required transfusion. so she was not considered for intervention with high risk of bleeding with no clear source Currently no chest pain but risk of recurrent angina and heart failure still high.? ECHO showed Moderate to severe LV systolic dysfunction with grade 2 diastolic dysfunction with regional wall motion abnormality suggestive underlying coronary artery disease cardio to approach with conservative measures and hold on intervention, family on board off Heparin drip On Coreg Aspirin, Plavix AtorvaStatin Family to consider outpatient further work up and intervention after this hospital stay Acute on chronic symptomatic anemia Improved and stable around 8 No overt bleeding, negative occult but likely GI loss Transfused total of 4 unit of blood, follow CBC NAHID on CKD IV initial improvement, now with worsening again, will change lasix to 40mg po bid monitor BMP obesity weight loss recomended htn amlodipine hld statin dvt prophylaxis mechanicla due to tarry stools full code PT eval reason for continued hospitalization: gi bleed Time Spent With Patient Time: Total time managing care of this patient today ____ minutes. Quality Stroke Does the patient have a stroke diagnosis?: No VTE Prior VTE?: No VTE Risk Level:: Medical - moderate - high VTE Device Contraindication: Treatment Not Indicated VTE Drug Contraindication: N/A - Med Ordered
[2023-01-04] MEDS: 0.9 % Sodium Chloride Flush 3 ML SYRINGE IVFLUSH ×2 (09:33→19:51)
[2023-01-04] MEDS: Pantoprazole Sodium 40 MG/10 ML VIAL IVPUSH ×2 (09:33→16:41)
[2023-01-04] MEDS: Lidocaine 4 % Patch ADH..PATCH 1 PATCH TRANSDERMA (09:39)
[2023-01-04 12:29] LABS: Glucose, Whole Blood 88 mg/dL (60-115)
[2023-01-04 12:32] LABS: Hematocrit 27.5 % (37.0-47.0); Hemoglobin 9.2 g/dl (12.0-16.0); Mean Corpuscular HGB Conc 33.5 g/dl (31.0-35.0); Mean Corpuscular Hemoglobin 30.6 pg (27.0-33.0); Mean Corpuscular Volume 91.4 fL (80.0-98.0); PLT CLUMP 1; Red Blood Count 3.01 X10*6/uL (4.20-5.50); Red Cell Distribution Width 15.9 % (11.0-16.0); White Blood Count 7.7 X10*3/uL (4.8-10.8)
[2023-01-04 12:54] LABS: Mean Platelet Volume 11.7 fL (9.4-12.3); Platelet Count 199 X10*3/uL (160-400)
[2023-01-04 16:04] LABS: Glucose, Whole Blood 106 mg/dL (60-115)
[2023-01-04] MEDS: Furosemide 40 MG TABLET PO (17:52)
[2023-01-04 19:46] LABS: Glucose, Whole Blood 143 mg/dL (60-115)
[2023-01-04] MEDS: Pregabalin 25 MG CAPSULE PO (19:50)
[2023-01-04] MEDS: carvediloL 12.5 MG TABLET PO (19:50)
[2023-01-04] MEDS: Atorvastatin Calcium 40 MG TABLET PO (19:50)
[2023-01-05] VITALS (10 sets, daily range): BP systolic 150–188; BP diastolic 60–79; PULSE 52–64; RESP 18–20; TEMP 36.2–37; O2SAT 95–100; BMI 30.4
[2023-01-05] MEDS: Nitroglycerin 2 % Oint 1 GM Packet 0.5 INCH TRANSDERMA ×5 (00:03→22:27)
[2023-01-05] MEDS: Pantoprazole Sodium 40 MG/10 ML VIAL IVPUSH (05:01)
[2023-01-05 06:11] LABS: Hematocrit 25.4 % (37.0-47.0); Hemoglobin 8.3 g/dl (12.0-16.0); Mean Corpuscular HGB Conc 32.7 g/dl (31.0-35.0); Mean Corpuscular Hemoglobin 29.9 pg (27.0-33.0); Mean Corpuscular Volume 91.4 fL (80.0-98.0); Mean Platelet Volume 11.4 fL (9.4-12.3); Platelet Count 221 X10*3/uL (160-400); Red Blood Count 2.78 X10*6/uL (4.20-5.50); Red Cell Distribution Width 15.6 % (11.0-16.0); White Blood Count 5.7 X10*3/uL (4.8-10.8)
[2023-01-05 06:26] LABS: Anion Gap 19 (12-20); Calcium 9.2 mg/dL (8.4-10.2); Carbon Dioxide 23 mmol/L (22-29); Chloride 105 mmol/L (96-108); Estimated Glomerular Filt Rate 13; Glucose Fasting 86 mg/dL (60-99); Potassium 4.4 mmol/L (3.3-5.1); Sodium 143 mmol/L (135-145)
[2023-01-05 06:41] LABS: Blood Urea Nitrogen 126 mg/dL (9-16)
[2023-01-05 07:01] LABS: Ferritin 329 ng/mL (10-250); Folate 18.1 ng/mL (> or = 4.0); Vitamin B12 805 pg/mL (200-900)
[2023-01-05 07:11] LABS: Glucose, Whole Blood 85 mg/dL (60-115)
[2023-01-05] MEDS: Spironolactone 25 MG TABLET PO (08:18)
[2023-01-05] MEDS: Clopidogrel Bisulfate 75 MG TABLET PO (08:18)
[2023-01-05] MEDS: amLODIPine Besylate 10 MG TABLET PO (08:19)
[2023-01-05] MEDS: Furosemide 40 MG TABLET PO ×2 (08:19→18:00)
[2023-01-05] MEDS: carvediloL 12.5 MG TABLET PO ×2 (08:19→22:27)
[2023-01-05] MEDS: Lidocaine 4 % Patch ADH..PATCH 1 PATCH TRANSDERMA (08:20)
[2023-01-05] MEDS: 0.9 % Sodium Chloride Flush 3 ML SYRINGE IVFLUSH ×2 (08:22→17:06)
--- NOTE | 2023-01-05 09:17 | HO.PM.IMPN ---
Subjective Subjective Date of Service: 01/05/23 Interval History: no complaints Physical Exam Vital Signs: Vital Signs: Last Vital Signs Temp 98.6 F 01/05/23 08:00 Pulse 59 01/05/23 08:00 Resp 20 01/05/23 08:00 BP 188/79 H 01/05/23 08:00 Pulse Ox 97 01/05/23 08:00 O2 Del Method Nasal Cannula 01/05/23 08:00 O2 Flow Rate 1.5 01/05/23 08:00 FiO2 35 01/04/23 04:00 Oxygen Flow Rate 6 12/24/22 06:55 BMI result Body Mass Index 30.4 Const: General: comfortable and no acute distress Orientation/consciousness: patient oriented x3 HEENT: Other: Unremarkable Head: Yes normal to inspection Neck: Neck: Yes normal visual inspection Chest: Chest palpation & inspection: normal inspection of the chest Resp: Auscultation: crackles Cardio: Palpation: normal PMI Heart sounds: S1 normal heart sound present, S2 normal heart sound present, no gallops, Murmur heart sound present systolic II/ and at the right sternal border and no rubs GI: Palpation (GI): Soft to palpation Back/Spine/Pelvis: Other: unremarkable Skin: General skin exam: no rashes or lesions noted Neuro: General: patient oriented x3 Extrem: Other: 1-2+ edema General: Yes normal to inspection Psych: Mental Status: mental status grossly normal Objective Data Active Medications Acetaminophen (Acetaminophen 325 Mg Tablet) 650 mg PO Q6H PRN PRN Reason: moderate pain Last Admin: 12/30/22 22:50 Dose: 650 mg Documented By: JOYCE Amlodipine Besylate (Amlodipine Besylate 10 Mg Tablet) 10 mg PO DAILY [facility]; Protocol Last Admin: 01/05/23 08:19 Dose: 10 mg Documented By: RODERICK Atorvastatin Calcium (Atorvastatin Calcium 40 Mg Tablet) 40 mg PO BEDTIME [facility] Last Admin: 01/04/23 19:50 Dose: 40 mg Documented By: CORNELIA Carvedilol (Carvedilol 12.5 Mg Tablet) 12.5 mg PO BID [facility]; Protocol Last Admin: 01/05/23 08:19 Dose: 12.5 mg Documented By: RODERICK Clopidogrel Bisulfate (Clopidogrel Bisulfate 75 Mg Tablet) 75 mg PO DAILY [facility] Last Admin: 01/05/23 08:18 Dose: 75 mg Documented By: RODERICK Furosemide (Furosemide 40 Mg Tablet) 40 mg PO BID@0900,1800 [facility]; Protocol Last Admin: 01/05/23 08:19 Dose: 40 mg Documented By: RODERICK Insulin Human Lispro (Insulin Lispro 100 Unit/Ml 3 Ml Vial) 0 unit SUBCUT QIDACHS [facility]; Protocol Last Admin: 01/05/23 07:15 Dose: Not Given Documented By: RODERICK Non-Admin Reason: No Insulin Coverage Lidocaine (Lidocaine 4 % Patch Adh..Patch) 1 patch TRANSDERMA DAILY [facility]; Protocol Last Admin: 01/05/23 08:20 Dose: 1 patch Documented By: RODERICK Nitroglycerin (Nitroglycerin 0.4 Mg Tab.Subl) 0.4 mg SUBLINGUAL Q5MX3 PRN PRN Reason: chest pain Last Admin: 12/27/22 23:58 Dose: 0.4 mg Documented By: SALVATORE Comments: pt denies chest pain Nitroglycerin (Nitroglycerin 2 % Oint 1 Gm Packet) 0.5 inch TRANSDERMA Q6H [facility]; Protocol Last Admin: 01/05/23 05:01 Dose: 0.5 inch Documented By: NELSY Pantoprazole Sodium (Pantoprazole Sodium 40 Mg/10 Ml Vial) 40 mg IVPUSH BID@0630,1630 [facility] Last Admin: 01/05/23 05:01 Dose: 40 mg Documented By: NELSY Pharmacy Consult (Consult Rx Perform Med Rec) 1 each MISCELLANE ONCE PRN PRN Reason: Consult order Pregabalin (Pregabalin 25 Mg Capsule) 25 mg PO BEDTIME [facility] Last Admin: 01/04/23 19:50 Dose: 25 mg Documented By: REYESAIban Sodium Chloride (0.9 % Sodium Chloride Flush 3 Ml Syringe) 3 ml IVFLUSH QSHIFT [facility] Last Admin: 01/05/23 08:22 Dose: 3 ml Documented By: RODERICK Spironolactone (Spironolactone 25 Mg Tablet) 25 mg PO DAILY [facility]; Protocol Last Admin: 01/05/23 08:18 Dose: 25 mg Documented By: RODERICK Labs 01/05/23 05:43 01/05/23 05:43 Labs: Laboratory Results - last 24 hr 01/04/23 01/04/23 01/04/23 11:51 12:22 16:01 MCV 91.4 MCH 30.6 MCHC 33.5 RDW 15.9 Plt Count 199 MPV 11.7 Absolute Nucleated RBC 0.000 Nucleated RBC % (auto) 0.0 Anion Gap Estim Creat Clear Calc Estimated GFR POC Glucose 88 106 Fasting Glucose Calcium Ferritin Vitamin B12 Folate 01/04/23 01/05/23 01/05/23 19:42 05:43 05:43 MCV 91.4 MCH 29.9 MCHC 32.7 RDW 15.6 Plt Count 221 MPV 11.4 Absolute Nucleated RBC 0.000 Nucleated RBC % (auto) 0.0 Anion Gap 19 Estim Creat Clear Calc 15.0 Estimated GFR 13 POC Glucose 143 H Fasting Glucose 86 Calcium 9.2 Ferritin Vitamin B12 Folate 01/05/23 01/05/23 05:43 07:07 MCV MCH MCHC RDW Plt Count MPV Absolute Nucleated RBC Nucleated RBC % (auto) Anion Gap Estim Creat Clear Calc Estimated GFR POC Glucose 85 Fasting Glucose Calcium Ferritin 329 H Vitamin B12 805 Folate 18.1 Assessment and Plan (1) Acute myocardial infarction of posterolateral wall: Status: Acute (2) Acute pulmonary edema: Status: Acute (3) Symptomatic anemia: Status: Acute (4) Acute respiratory failure with hypoxia: Status: Acute Plan 82F PMH chronic hypoxic respiratory failure on 2L home o2, chronic diastolic chf, CKD IV, obesity, HTN, HLD, preDM, presented with shortness of breath acute on chronic hypoxic respiratory failure due to acute on chronic diastolic chf lasix 40mg bid po Monitor I\O wean O2 down as tolerated tarry stools no drop in hgb change to po ppi monitor cbc Acute coronary syndrome EKG showed lateral distribution Dropped Hb while on heparin before, required transfusion. so she was not considered for intervention with high risk of bleeding with no clear source Currently no chest pain but risk of recurrent angina and heart failure still high.? ECHO showed Moderate to severe LV systolic dysfunction with grade 2 diastolic dysfunction with regional wall motion abnormality suggestive underlying coronary artery disease cardio to approach with conservative measures and hold on intervention, family on board off Heparin drip On Coreg Plavix AtorvaStatin Family to consider outpatient further work up and intervention after this hospital stay Acute on chronic symptomatic anemia Improved and stable around 8 No overt bleeding, negative occult but likely GI loss Transfused total of 4 unit of blood, follow CBC NAHID on CKD IV initial improvement, now with worsening again monitor BMP obesity weight loss recommended htn amlodipine hld statin dvt prophylaxis mechanical due to tarry stools full code PT eval reason for continued hospitalization: gi bleed Time Spent With Patient Time: Total time managing care of this patient today ____ minutes. Quality Stroke Does the patient have a stroke diagnosis?: No VTE Prior VTE?: No VTE Risk Level:: Medical - moderate - high VTE Device Contraindication: Treatment Not Indicated VTE Drug Contraindication: N/A - Med Ordered
[2023-01-05 11:52] LABS: Glucose, Whole Blood 174 mg/dL (60-115)
[2023-01-05] MEDS: Insulin Lispro 100 UNIT/ML 3 ML VIAL SUBCUT ×3 (11:56→22:28)
[2023-01-05 16:03] LABS: Glucose, Whole Blood 155 mg/dL (60-115)
[2023-01-05 19:43] LABS: Glucose, Whole Blood 206 mg/dL (60-115)
[2023-01-05] MEDS: Atorvastatin Calcium 40 MG TABLET PO (22:27)
[2023-01-05] MEDS: Pregabalin 25 MG CAPSULE PO (22:27)
[2023-01-06 06:00] VITALS: BP 152/67; PULSE 56; RESP 20; TEMP 36.5; O2SAT 100; BMI 29.8
[2023-01-06 06:30] VITALS: BP 152/67
[2023-01-06] MEDS: Nitroglycerin 2 % Oint 1 GM Packet 0.5 INCH TRANSDERMA ×2 (06:30→11:38)
[2023-01-06] MEDS: Acetaminophen 325 MG TABLET 650 MG PO (06:32)
[2023-01-06] MEDS: Omeprazole 40 MG CAPSULE.DR PO (06:32)
[2023-01-06 07:12] LABS: Hematocrit 24.7 % (37.0-47.0); Mean Corpuscular HGB Conc 32.4 g/dl (31.0-35.0); Mean Corpuscular Hemoglobin 29.9 pg (27.0-33.0); Mean Corpuscular Volume 92.2 fL (80.0-98.0); Mean Platelet Volume 11.4 fL (9.4-12.3); Platelet Count 211 X10*3/uL (160-400); Red Blood Count 2.68 X10*6/uL (4.20-5.50); Red Cell Distribution Width 15.8 % (11.0-16.0); White Blood Count 5.7 X10*3/uL (4.8-10.8)
[2023-01-06 07:27] LABS: Glucose, Whole Blood 95 mg/dL (60-115)
[2023-01-06 07:46] LABS: Anion Gap 17 (12-20); Carbon Dioxide 23 mmol/L (22-29); Chloride 107 mmol/L (96-108); Creatinine Clr Calc Pharmacy 14.9; Estimated Glomerular Filt Rate 13; Glucose Fasting 96 mg/dL (60-99); Potassium 4.3 mmol/L (3.3-5.1); Sodium 143 mmol/L (135-145)
[2023-01-06 07:56] LABS: Blood Urea Nitrogen 133 mg/dL (9-16)
[2023-01-06 08:00] VITALS: BP 153/67; PULSE 53; RESP 18; TEMP 36.3; O2SAT 98
[2023-01-06] MEDS: Furosemide 40 MG TABLET PO (08:40)
[2023-01-06] MEDS: 0.9 % Sodium Chloride Flush 3 ML SYRINGE IVFLUSH (08:40)
[2023-01-06] MEDS: Lidocaine 4 % Patch ADH..PATCH 1 PATCH TRANSDERMA (08:40)
[2023-01-06] MEDS: amLODIPine Besylate 10 MG TABLET PO (08:40)
[2023-01-06] MEDS: carvediloL 12.5 MG TABLET PO (08:40)
[2023-01-06] MEDS: Spironolactone 25 MG TABLET PO (08:40)
[2023-01-06] MEDS: Clopidogrel Bisulfate 75 MG TABLET PO (08:40)
--- NOTE | 2023-01-06 09:32 | P.PNIM_ITS ---
Subjective Subjective Date of Service: 01/06/23 Interval History: no complaints Physical Exam Vital Signs: Vital Signs: Last Vital Signs Temp 97.4 F 01/06/23 08:00 Pulse 53 01/06/23 08:00 Resp 18 01/06/23 08:00 BP 153/67 H 01/06/23 08:00 Pulse Ox 98 01/06/23 08:00 O2 Del Method Nasal Cannula 01/06/23 08:00 O2 Flow Rate 1 01/06/23 08:00 FiO2 35 01/04/23 04:00 Oxygen Flow Rate 6 12/24/22 06:55 BMI result Body Mass Index 29.8 Const: General: comfortable and no acute distress O rientation/consciousness: patient oriented x3 HEENT: Other: Unremarkable Head: Yes normal to inspection Neck: Neck: Yes normal visual inspection Chest: Chest palpation & inspection: normal inspection of the chest Resp: Auscultation: crackles Cardio: Palpation: normal PMI Heart sounds: S1 normal heart sound present, S2 normal heart sound present, no gallops, Murmur heart sound present systolic II/ and at the right sternal border and no rubs GI: Palpation (GI): Soft to palpation Back/Spine/Pelvis: Other: unremarkable Skin: General skin exam: no rashes or lesions noted Neuro: General: patient oriented x3 Extrem: Other: 1-2+ edema General: Yes normal to inspection Psych: Mental Status: mental status grossly normal Objective Data Active Medications Acetaminophen (Acetaminophen 325 Mg Tablet) 650 mg PO Q6H PRN PRN Reason: moderate pain Last Admin: 01/06/23 06:32 Dose: 650 mg Documented By: SALVATORE Amlodipine Besylate (Amlodipine Besylate 10 Mg Tablet) 10 mg PO DAILY [facility]; Protocol Last Admin: 01/06/23 08:40 Dose: 10 mg Documented By: ELIZBAETH Atorvastatin Calcium (Atorvastatin Calcium 40 Mg Tablet) 40 mg PO BEDTIME [facility] Last Admin: 01/05/23 22:27 Dose: 40 mg Documented By: RYAN Carvedilol (Carvedilol 12.5 Mg Tablet) 12.5 mg PO BID [facility]; Protocol Last Admin: 01/06/23 08:40 Dose: 12.5 mg Documented By: ELIZABETH Clopidogrel Bisulfate (Clopidogrel Bisulfate 75 Mg Tablet) 75 mg PO DAILY [facility] Last Admin: 01/06/23 08:40 Dose: 75 mg Documented By: ELIZABETH Furosemide (Furosemide 40 Mg Tablet) 40 mg PO BID@0900,1800 [facility]; Protocol Last Admin: 01/06/23 08:40 Dose: 40 mg Documented By: ELIZABETH Insulin Human Lispro (Insulin Lispro 100 Unit/Ml 3 Ml Vial) 0 unit SUBCUT QIDACHS [facility]; Protocol Last Admin: 01/06/23 07:53 Dose: Not Given Documented By: ELIZABETH Non-Admin Reason: No Insulin Coverage Lidocaine (Lidocaine 4 % Patch Adh..Patch) 1 patch TRANSDERMA DAILY [facility]; Protocol Last Admin: 01/06/23 08:40 Dose: 1 patch Documented By: ELIZABETH Nitroglycerin (Nitroglycerin 0.4 Mg Tab.Subl) 0.4 mg SUBLINGUAL Q5MX3 PRN PRN Reason: chest pain Last Admin: 12/27/22 23:58 Dose: 0.4 mg Documented By: SALVATORE Comments: pt denies chest pain Nitroglycerin (Nitroglycerin 2 % Oint 1 Gm Packet) 0.5 inch TRANSDERMA Q6H [facility]; Protocol Last Admin: 01/06/23 06:30 Dose: 0.5 inch Documented By: SALVATORE Omeprazole (Omeprazole 40 Mg Capsule.Dr) 40 mg PO DAILY@0630 [facility] Last Admin: 01/06/23 06:32 Dose: 40 mg Documented By: SALVATORE Pharmacy Consult (Consult Rx Perform Med Rec) 1 each MISCELLANE ONCE PRN PRN Reason: Consult order Pregabalin (Pregabalin 25 Mg Capsule) 25 mg PO BEDTIME [facility] Last Admin: 01/05/23 22:27 Dose: 25 mg Documented By: RYAN Sodium Chloride (0.9 % Sodium Chloride Flush 3 Ml Syringe) 3 ml IVFLUSH QSHIFT [facility] Last Admin: 01/06/23 08:40 Dose: 3 ml Documented By: ELIZABETH Spironolactone (Spironolactone 25 Mg Tablet) 25 mg PO DAILY [facility]; Protocol Last Admin: 01/06/23 08:40 Dose: 25 mg Documented By: ELIZABETH Labs 01/06/23 06:46 05/15/23 06:46 Labs: Laboratory Results - last 24 hr 01/05/23 01/05/23 01/05/23 11:44 15:55 19:33 MCV MCH MCHC RDW Plt Count MPV Absolute Nucleated RBC Nucleated RBC % (auto) Anion Gap Estim Creat Clear Calc Estimated GFR POC Glucose 174 H 155 H 206 H Fasting Glucose Calcium 01/06/23 01/06/23 01/06/23 06:46 06:46 07:18 MCV 92.2 MCH 29.9 MCHC 32.4 RDW 15.8 Plt Count 211 MPV 11.4 Absolute Nucleated RBC 0.000 Nucleated RBC % (auto) 0.0 Anion Gap 17 Estim Creat Clear Calc 14.9 Estimated GFR 13 POC Glucose 95 Fasting Glucose 96 Calcium 9.0 Assessment and Plan (1) Acute myocardial infarction of posterolateral wall: Status: Acute (2) Acute pulmonary edema: Status: Acute (3) Symptomatic anemia: Status: Acute (4) Acute respiratory failure with hypoxia: Status: Acute Plan 82F PMH chronic hypoxic respiratory failure on 2L home o2, chronic diastolic chf, CKD IV, obesity, HTN, HLD, preDM, presented with shortness of breath acute on chronic hypoxic respiratory failure due to acute on chronic diastolic c hf lasix 40mg bid po Monitor I\O wean O2 down as tolerated tarry stools no drop in hgb change to po ppi monitor cbc Acute coronary syndrome EKG showed lateral distribution Dropped Hb while on heparin before, required transfusion. so she was not considered for intervention with high risk of bleeding with no clear source Currently no chest pain but risk of recurrent angina and heart failure still high.? ECHO showed Moderate to severe LV systolic dysfunction with grade 2 diastolic dysfunction with regional wall motion abnormality suggestive underlying coronary artery disease cardio to approach with conservative measures and hold on intervention, family on board off Heparin drip On Coreg Plavix AtorvaStatin Family to consider outpatient further work up and intervention after this hospital stay Acute on chronic symptomatic anemia Improved and stable around 8 No overt bleeding, negative occult but likely GI loss Transfused total of 4 unit of blood, follow CBC NAHID on CKD IV initial improvement, now with worsening again monitor BMP obesity weight loss recommended htn amlodipine hld statin dvt prophylaxis mechanical due to tarry stools full code PT eval reason for continued hospitalization: gi bleed Time Spent With Patient Time: Total time managing care of this patient today ____ minutes. Quality Stroke Does the patient have a stroke diagnosis?: No VTE Prior VTE?: No VTE Risk Level:: Medical - moderate - high VTE Device Contraindication: Treatment Not Indicated VTE Drug Contraindication: N/A - Med Ordered
--- NOTE | 2023-01-06 10:24 | MHC.CM.PN ---
Addendum entered by Monse Mcmahon 01/06/23 14:01: [facility]ANIEL booked for 3:30pm today, RN, MD, and pt aware. Pts daughter to bring the bipap machine to [facility], facility is aware. Second IMM given via telephone to daughter/HCP Emilee. Original Note: EMR reviewed and per MD rounds, pt is medically cleared for D/C to SNF. [facility] has a bed for the patient, facility is awaiting insurance auth. Pt and family aware and in agreement. Transport via BLS/[facility].
[2023-01-06 11:19] LABS: Glucose, Whole Blood 147 mg/dL (60-115)
[2023-01-06 11:45] VITALS: BP 141/62; PULSE 57; RESP 20; TEMP 36.8; O2SAT 97
[2023-01-06 11:46] LABS: Glucose, Whole Blood 149 mg/dL (60-115)
--- NOTE | 2023-01-06 11:56 | MHC.CLN ---
F/U PO INTAKE APPEARS GOOD, 75-100%. DIET RX: 1800DM-APPROPRIATE PT RECEIVING ENSURE CLEAR TID TO PROVIDE 720KCALS, 24G PROTEIN ELEVATED BUN AND Cr NOTED. STAGE II PRESSURE INJURY TO COCCYX. CONTINUE TO MONITOR PO INTAKE AND WOUND HEALING.
[2023-01-06 12:32] LABS: COVID-19 Test Negative (Negative); IDNOW Serial# 08D9AD1C
--- NOTE | 2023-01-06 12:45 | P.DS_ITS ---
DS: Providers Provider Date of Service: 01/06/23 Date of admission: 12/24/22 16:23 Primary care physician: Kay Mata MD Consults: 12/24/22 16:22 Consult to Cardiology Routine Consulting Provider[place] [facility] Reason for consultation: chf Has provider been notified: Yes 12/25/22 12:09 Consult to Critical Care Routine Consulting Provider: Ekaterina Perez Reason for consultation: CHF exacerbation, hypoxia 01/03/23 19:55 Consult to Gastroenterology Routine Consulting Provider: Aranza Keller Reason for consultation: black tarry stool DS: Diagnosis Discharge Diagnosis (1) Acute myocardial infarction of posterolateral wall: Status: Acute (2) Acute pulmonary edema: Status: Acute (3) Symptomatic anemia: Status: Acute (4) Acute respiratory failure with hypoxia: Status: Acute DS: Summary Hospital Course Hospital Course: from initial hpi: 82F PMH chronic hypoxic respiratory failure on 2L home o2, chronic diastolic chf, CKD IV, obesity, HTN, HLD, preDM, presented with shortness of breath.? patient states sob worsening over past 2 days, worse on minimal exertion. acute on chronic lower extremity edema. orthopnea. denies chest pain, fever, chills. reports compliance with meds, no obvious triggering events. in ED noted to be hypoxic, placed on cpap and given diuretics with significnat improvement, elevated troponin and bnp, started on iv heparin hospital course: Patient was admitted for acute on chronic hypoxic respiratory failure due to acute on chronic systolic CHF. She was treated with IV diuresis and echo showed moderate to severe LV systolic dysfunction with grade 2 diastolic dysfunction and regional wall motion abnormality, seen by Cardiology who initially recommended conservative therapy with dual antiplatelet and heparin. Patient then had significant anemia likely due to acute blood loss so heparin was dis continued. She was considered too high risk for endoscopy. Initially hemoglobin remained stable and patient is having no gross bleeding at discharge. For CHF she is now close to euvolemic and was de-escalated down to 40 mg b.i.d. p.o. of Lasix. Acute kidney injury on CKD 4 she initially had improvement but at discharge appears to be at a new baseline of about 3.5. For obesity weight loss recommended peripheral attention she will continue on amlodipine. For lipidemia will continue on statin. Overall patient has poor prognosis, but is currently stable, she will be discharged to correction facility, Time Spent with Patient Time attestation: Total time managing care of this patient today ____ minutes. Discharge coordination time: Greater than 30 minutes Quality: Safe Use of Opioids Does Pt have an Active Cancer Diagnosis on the Problem List?: No Quality: Stroke Does the patient have a stroke diagnosis?: No Physical Exam Vital Signs: Vital Signs: Last Vital Signs Temp 98.3 F 01/06/23 11:45 Pulse 57 01/06/23 11:45 Resp 20 01/06/23 11:45 BP 141/62 H 01/06/23 11:45 Pulse Ox 97 01/06/23 11:45 O2 Del Method Room Air 01/06/23 11:45 O2 Flow Rate 1 01/06/23 08:00 FiO2 35 01/04/23 04:00 Oxygen Flow Rate 6 12/24/22 06:55 BMI result Body Mass Index 29.8 Const: General: comfortable and no acute distress Orientation/consciousness: patient oriented x3 HEENT: Other: Unremarkable Head: Yes normal to inspection Neck: Neck: Yes normal visual inspection Chest: Chest palpation & inspection: normal inspection of the chest Resp: Auscultation: crackles Cardio: Palpation: normal PMI Heart sounds: S1 normal heart sound present, S2 normal heart sound present, no gallops, Murmur heart sound present systolic II/ and at the right sternal border and no rubs GI: Palpation (GI): Soft to palpation Back/Spine/Pelvis: Other: unremarkable Skin: General skin exam: no rashes or lesions noted Neuro: General: patient oriented x3 Extrem: Other: 1-2+ edema General: Yes normal to inspection Psych: Mental Status: mental status grossly normal DS: Data Data Completed and Pending Completed studies during hospitalization [Text1]: Procedures Drainage of Right Upper Arm Subcutaneous Tissue and Fascia, Open Approach (03/03/21) Excision of Ascending Colon, Via Natural or Artificial Opening Endoscopic, Diagnostic (01/07/21) Excision of Duodenum, Via Natural or Artificial Opening Endoscopic, Diagnostic (01/07/21) Excision of Stomach, Pylorus, Via Natural or Artificial Opening Endoscopic, Diagnostic (01/07/21) Insertion of Infusion Device into Right Brachial Vein, Percutaneous Approach (03/03/21) Transfusion of Nonautologous Red Blood Cells into Peripheral Vein, Percutaneous Approach (07/11/22) Labs on day of discharge: Laboratory Results - last 24 hr 01/05/23 01/05/23 01/06/23 15:55 19:33 06:46 WBC 5.7 RBC 2.68 L Hgb 8.0 L Hct 24.7 L MCV 92.2 MCH 29.9 MCHC 32.4 RDW 15.8 Plt Count 211 MPV 11.4 Absolute Nucleated RBC 0.000 Nucleated RBC % (auto) 0.0 Sodium Potassium Chloride Carbon Dioxide Anion Gap BUN Creatinine Estim Creat Clear Calc Estimated GFR POC Glucose 155 H 206 H Fasting Glucose Calcium COVID-19 (ROBBIE) COVID-19 [employer] 01/06/23 01/06/23 01/06/23 06:46 07:18 11:11 WBC RBC Hgb Hct MCV MCH MCHC RDW Plt Count MPV Absolute Nucleated RBC Nucleated RBC % (auto) Sodium 143 Potassium 4.3 Chloride 107 Carbon Dioxide 23 Anion Gap 17 BUN 133 H Creatinine 3.28 H Estim Creat Clear Calc 14.9 Estimated GFR 13 POC Glucose 95 147 H Fasting Glucose 96 Calcium 9.0 COVID-19 (ROBBIE) COVID-19 [employer] 01/06/23 01/06/23 11:30 11:40 WBC RBC Hgb Hct MCV MCH MCHC RDW Plt Count MPV Absolute Nucleated RBC Nucleated RBC % (auto) Sodium Potassium Chloride Carbon Dioxide Anion Gap BUN Creatinine Estim Creat Clear Calc Estimated GFR POC Glucose 149 H Fasting Glucose Calcium COVID-19 (ROBBIE) Negative COVID-19 [employer] See Note Discharge Plan Discharge Anticipated Discharge Date/Time: 01/03/23 10:43 Patient Disposition: Xfer SNF Discharge Diagnosis: chf Referrals: Kay Chávez MD [Primary Care Provider] - 1 Week Discharge Medications: New carvedilol 12.5 mg Tablet 12.5 mg PO BID Qty: 60 0RF Protocol: Hold for SBP/HR < HOLD for SBP < : 90 HOLD for HR < : 60 clopidogrel 75 mg Tablet 75 mg PO DAILY Qty: 30 0RF aspirin 81 mg Tablet,Delayed Release (Dr/Ec) 81 mg PO DAILY Qty: 30 0RF spironolactone 25 mg Tablet 25 mg PO DAILY Qty: 30 0RF Protocol: Hold for SBP< HOLD for SBP < : 90 Continued (DME) adult diapers X-large See Rx Instructions .Route .MEDSUPPLY Qty: 240 6RF Rx Instructions: As directed (DME) personal wipes See Rx Instructions .Route .MEDSUPPLY Qty: 300 6RF Rx Instructions: As directed (DME) disposable gloves Misc See Rx Instructions .Route Qty: 200 6RF Rx Instructions: As directed atorvastatin 40 mg tablet 40 mg PO BEDTIME Qty: 90 0RF bumetanide 2 mg tablet 2 mg PO DAILY 90 Days Qty: 90 1RF pregabalin 25 mg capsule 25 mg PO BEDTIME 30 Days Qty: 30 0RF acetaminophen 325 mg Tablet 650 mg PO Q6H PRN (Reason: Pain) cyanocobalamin (vitamin B-12) [Vitamin B-12] 1,000 mcg tablet 1,000 mcg PO BEDTIME amlodipine 10 mg tablet 10 mg PO BEDTIME multivitamin with folic acid 400 mcg tablet 1 tab PO BEDTIME ferrous sulfate [FeroSul] 325 mg (65 mg iron) tablet 325 mg PO TID 30 Days Qty: 90 3RF Discontinued isosorbide mononitrate 60 mg tablet extended release 24 hr 60 mg PO DAILY Qty: 60 0RF Protocol: Hold for SBP< HOLD for SBP < : 90 hydralazine 50 mg tablet 50 mg PO TID Protocol: Hold for SBP< HOLD for SBP < : 90 Discharge Orders: Discharge Order (Routine); Ordered 01/06/23 Ordered By: Xavier Chaparro Diet: Advance to usual diet Activity on Discharge: As tolerated Stand Alone Forms: Patient Portal Discharge page Care Plan Goals: recovery Health Concerns: chf Plan of Treatment: med changes per medrec Assessment: see above
== END 2023-01-06 16:40 | disposition skilled nursing facility (03) | DRG 280 ==
LOC: HO.ED 07:46 → HO.EDOVER 17:02 → HO.IMC 12-25 01:43 → HO.ICU 12-25 13:32 → HO.IMC 12-27 17:44
PROVIDERS: Internal Medicine; Internal Medicine Cardiovascular Disease; Internal Medicine Gastroenterology; Physician Assistant; Physician Assistant Medical; Student in an Organized Health Care Education/Training Program; Admitting Provider Internal Medicine; Emergency Provider Emergency Medicine; PCP Internal Medicine; Visit Provider Internal Medicine
DX: I13.0 Hypertensive heart and chronic kidney disease with heart failure and stage 1 through stage 4 chronic kidney disease, or unspecified chronic kidney disease (principal); I50.33 Acute on chronic diastolic (congestive) heart failure; I21.29 ST elevation (STEMI) myocardial infarction involving other sites; I21.4 Non-ST elevation (NSTEMI) myocardial infarction; J96.21 Acute and chronic respiratory failure with hypoxia; N18.4 Chronic kidney disease, stage 4 (severe); N17.9 Acute kidney failure, unspecified; D62 Acute posthemorrhagic anemia; K92.1 Melena; E78.00 Pure hypercholesterolemia, unspecified; E11.22 Type 2 diabetes mellitus with diabetic chronic kidney disease; E11.51 Type 2 diabetes mellitus with diabetic peripheral angiopathy without gangrene; D63.1 Anemia in chronic kidney disease; E66.01 Morbid (severe) obesity due to excess calories; L89.152 Pressure ulcer of sacral region, stage 2; Z20.822 Contact with and (suspected) exposure to COVID-19; Z74.01 Bed confinement status; Z99.81 Dependence on supplemental oxygen; Z68.35 Body mass index [BMI] 35.0-35.9, adult; Z91.041 Radiographic dye allergy status; Z79.899 Other long term (current) drug therapy
CPT/HCPCS: 0241U; 36415; 71045; 80048; 80053; 81001; 81003; 82272; 82607; 82728; 82746; 82803; 82947; 83010; 83540; 83605; 83735; 83880; 84100; 84484; 85025; 85027; 85610; 85730; 86850; 86900; 86901; 86923; 87040; 87086; 87147; 87205; 87635; 92950; 93005; 93306; 94660; 97161; 99285; C1758; J1643; J1940; P9016; Q9957

== ENCOUNTER 2023-03-07 12:46 | Inpatient (IN) | payer OTHER, SELFPAY ==
[2023-03-07] VITALS (13 sets, daily range): BP systolic 133–172; BP diastolic 49–74; PULSE 60–75; RESP 15–29; TEMP 36.2–37; O2SAT 89–97; BMI 34.1
--- NOTE | ~2023-03-07 | XR_ITS ---
EXAMINATION: XR CHEST CLINICAL INFORMATION: Follow-up pulmonary edema. COMPARISON: 03/07/2023 chest radiograph. TECHNIQUE: Frontal view of the chest was obtained. FINDINGS: Persistent mild increased pulmonary vascular and interstitial markings are seen with interval decrease. The heart is mildly enlarged with mediastinal structures are unremarkable. XR/XR chest 1V IMPRESSION: Mild interval improvement in pulmonary vascular congestion.
--- NOTE | ~2023-03-07 | XR_ITS ---
EXAMINATION: XR CHEST CLINICAL INFORMATION: Shortness of breath COMPARISON: 03/09/2023 TECHNIQUE: Frontal view of the chest was obtained. FINDINGS: Lung volumes are symmetric. There is prominence of the central vasculature and surrounding interstitium. There is increasing hazy opacification of the right lung base and persistent retrocardiac opacity. Small pleural effusions noted. No evidence of pneumothorax. Cardiac silhouette remains enlarged. Calcification is present at the aortic arch. Degenerative changes are noted in the spine. XR/XR chest 1V IMPRESSION: Prominent central vasculature and surrounding interstitium, suspicious for vascular congestion and edema. Bibasilar opacities, slightly worsened on the right compared to prior, along with small pleural effusions.
--- NOTE | ~2023-03-07 | XR_ITS ---
EXAMINATION: XR CHEST CLINICAL INFORMATION: Shortness of breath COMPARISON: 12/24/2022 TECHNIQUE: Frontal view of the chest was obtained. FINDINGS: Lungs are mildly hypoinflated. Again noted is cardiomegaly and engorged pulmonary vessels. Patchy hazy bilateral pulmonary opacities and generalized interstitial prominence suggest active congestive heart failure with pulmonary edema. There are bibasilar opacities from small pleural effusions and likely associated bibasilar atelectasis.. No pneumothorax. EKG wires overlie the chest. The aorta is calcified. The visualized bones are intact. XR/XR chest 1V IMPRESSION: Cardiomegaly, pulmonary edema and small pleural effusions. The bibasilar opacities are likely from atelectasis and pleural effusions, although this examination would not be able to exclude any superimposed pneumonia.
--- NOTE | 2023-03-07 13:01 | ECG_ITS ---
Test Reason : dyspnea Blood Pressure : / mmHG Vent. Rate : 071 BPM Atrial Rate : 071 BPM P-R Int : 164 ms QRS Dur : 110 ms QT Int : 414 ms P-R-T Axes : 038 -17 042 degrees QTc Int : 449 ms Normal sinus rhythm Minimal voltage criteria for LVH, may be normal variant ( [place] product ) Nonspecific ST and T wave abnormality Abnormal ECG When compared with ECG of 27-DEC-2022 21:35, Nonspecific T wave abnormality now evident in Inferior leads T wave inversion no longer evident in Anterolateral leads Referred By: Edwardo Wilks Electronically Signed By:RAÚL BLUE MD
--- NOTE | 2023-03-07 13:04 | ED.SOB ---
HPI - SOB/Dyspnea General Chief Complaint: Dyspnea Stated Complaint: Resp distress, SOB, Low O2(88) per EMS Time Seen by Provider: 03/07/23 13:01 Source: EMS Mode of arrival: EMS History of Present Illness HPI Narrative: This is a 83 years old female from the senior living a with history of coronary artery disease, history of congestive heart failure on chronic oxygen, presented in respiratory distress arrived on high-flow oxygen. Symptoms started this morning. MD elicited complaint: shortness of breath Pertinent past history: COPD and congestive heart failure Onset (ago): hour(s) (5) Timing: constant Severity: severe Exacerbating factors: lying flat Known history of: congestive heart failure Related Data Home Medications Medication Instructions Recorded Confirmed acetaminophen 325 mg tablet 650 mg PO Q6H PRN Pain 09/10/21 12/24/22 amlodipine 10 mg tablet 10 mg PO BEDTIME 08/17/22 12/24/22 cyanocobalamin (vitamin B-12) 1,000 mcg PO BEDTIME 08/17/22 12/24/22 1,000 mcg tablet (Vitamin B-12) multivitamin with folic acid 400 1 tab PO BEDTIME 08/17/22 12/24/22 mcg tablet Previous Rx's Medication Instructions Recorded ferrous sulfate 325 mg (65 mg 325 mg PO TID 30 days #90 tabs 08/13/22 iron) tablet (FeroSul) adult diapers #240 ea 08/31/22 disposable gloves #200 ea 08/31/22 personal wipes #300 ea 08/31/22 atorvastatin 40 mg tablet 40 mg PO BEDTIME #90 tabs 11/28/22 bumetanide 2 mg tablet 2 mg PO DAILY 90 days #90 tabs 11/28/22 pregabalin 25 mg capsule 25 mg PO BEDTIME 30 days #30 caps 11/28/22 aspirin 81 mg tablet,delayed 81 mg PO DAILY #30 tabs 01/03/23 release carvedilol 12.5 mg tablet 12.5 mg PO BID #60 tabs 01/03/23 clopidogrel 75 mg tablet 75 mg PO DAILY #30 tabs 01/03/23 spironolactone 25 mg tablet 25 mg PO DAILY #30 tabs 01/03/23 Allergies Allergy/AdvReac Type Severity Reaction Status Date / Time Iodinated Contrast Media Allergy Unknown UNKNOWN Verified 08/13/22 16:05 [IODINATED CONTRAST MEDIA] Review of Systems Review of Systems: Yes Unobtainable due to mental condition PMFSH Past Medical History Attestation statement: The following information was validated with the patient. Medical History Abscess of forearm, right Acute on chronic diastolic heart failure Acute respiratory failure with hypoxia Anemia B12 deficiency Chronic renal insufficiency CKD (chronic kidney disease) Congestive heart failure Diabetes Femoral artery stenosis Gram-positive bacteremia High cholesterol Hypertension Hypoxia Lower extremity edema Psoriasis of scalp PVD (peripheral vascular disease) Surgical History History of female sterilization History of shoulder surgery Family History Family History Father No problems noted. Mother No problems noted. Social History Social History Household Members: Family Household Members Other:: Daughter Housing: House Do you presently have visiting nurse or other home services: Yes Alcohol intake: never Patient Tobacco Use Status: Never used Tobacco Smoked in Last 30 Days: No e-Cigarette/Vaping Use: Never Used Second Hand Smoke Exposure: No Use of substances other than those prescribed or required for medical reasons: No Advance Directives: Yes Advance Directives on File: Yes Advance Directives Date on File: 04/18/21 service: No Current occupational status: retired and disabled Cognitive needs: Yes Hearing needs: No Vision needs: No Physical Exam Vital Signs: Vital Signs: Last Vital Signs Temp 98.6 F 03/07/23 13:05 Pulse 63 03/07/23 16:10 Resp 19 03/07/23 16:10 BP 149/57 H 03/07/23 16:10 Pulse Ox 93 03/07/23 16:10 O2 Del Method Nasal Cannula 03/07/23 16:10 O2 Flow Rate 4 03/07/23 16:10 Oxygen Flow Rate 6 03/07/23 13:05 BMI result Body Mass Index 34.1 Const: General: alert Nutritional Appearance: well nourished Orientation/consciousness: patient oriented x3 HEENT: Head: Yes normal to inspection Face and sinus: Yes normal facial exam Teeth and gingiva: dentition normal Neck: Neck: Yes normal visual inspection Chest: Chest palpation & inspection: normal inspection of the chest Resp: Effort & Inspection: respiratory distress and tachypneic Auscultation: rales and wheezes Cardio: Jugular venous distension: no JVD Rate: regular rate Rhythm: regular rhythm GI: Inspection: Yes normal to inspection Palpation (GI): Soft to palpation Auscultation: normal bowel sounds Skin: General skin exam: no rashes or lesions noted and elasticity normal Neuro: General: patient oriented x3 Extrem: General: Yes normal to inspection Course Reevaluation(s) Reevaluation #1: Patient feels much better less short of breath we will wean off of BiPAP. Labs reviewed chronic renal failure, anemia of chronic disease, elevated troponin in the setting of chronic renal insufficiency. I discussed the case with the patient daughter and son the patient is do not resuscitate do not intubate. Her quality of life is poor a baseline she does not walk. She is a senior living resident Time: 15:42 Reevaluation #2: off bypap duing much better Time: 16:18 Medications Administered Discontinued Medications Generic Name Dose Route Start Last Admin Trade Name Moralesq PRN Reason Stop Dose Admin Furosemide 80 mg 03/07/23 13:07 03/07/23 14:25 Furosemide 100 Mg/10 Ml Vial IVPUSH 03/07/23 13:08 80 mg ONCE ONE Administration Protocol Lidocaine HCl 5 ml 03/07/23 15:00 03/07/23 15:04 Lidocaine Hcl 1 % Mpf 5 Ml Vial INFILTRATI 03/07/23 15:01 5 ml ONCE ONE Administration Medical Decision Making Medical Decision Making [facility] Narrative: Presented emergency department complaining of shortness of breath will get chest x-ray labs ABG BMP As 15:40 she is feeling much better, labs and chest x-ray reviewed patient is consistent with the congestive heart failure in a patient with chronic renal failure, and troponin is elevated as well in the setting of a chronic renal insufficiency. As I said before I spoke with family at length patient is DNR DNI. She also very difficult IV access we were able to place an IV in the left hand 20 gauge. At this point she has IV access but she is very difficult. Differential Diagnosis Differential Diagnoses: The differential diagnosis associated with the presentation includes Differential diagnosis is congestive failure/pneumonia/pneumothorax Admission/Observation Consideration of admission/observation: Escalation of care including admission/observation considered Consult Healthcare Provider Management of the patient was discussed with: Hospitalist Lab Data MDM Lab Attestation statement: I reviewed the patient's lab results. 03/07/23 13:39 03/07/23 13:39 Labs: Lab Results 03/07/23 03/07/23 03/07/23 Range/Units 13:06 13:39 13:39 WBC 15.4 H (4.8-10.8) X10*3/uL RBC 2.34 L (4.20-5.50) X10*6/uL Hgb 7.0 L* (12.0-16.0) g/dl Hct 21.5 L (37.0-47.0) % MCV 91.9 (80.0-98.0) fL MCH 29.9 (27.0-33.0) pg MCHC 32.6 (31.0-35.0) g/dl RDW 14.6 (11.0-16.0) % Plt Count 271 D (160-400) X10*3/uL MPV 10.9 (9.4-12.3) fL Immature Gran % (Auto) 1.0 H (0.0-0.4) % Neut % (Auto) 91.4 H (45-73) % Lymph % (Auto) 3.8 L (20-40) % [place] % (Auto) 3.6 (2-11) % Eos % (Auto) 0.1 (0-4) % Baso % (Auto) 0.1 (0-2) % Lymph # (Auto) 0.6 L (1.2-4.9) X10*3/uL [place] # (Auto) 0.6 (0.1-1.2) X10*3/uL Eos # (Auto) 0.0 (0.0-0.4) X10*3/uL Baso # (Auto) 0.0 (0.0-0.2) X10*3/uL Abs Immat Gran (auto) 0.16 H (0.00-0.03) X10*3/uL Absolute Neuts (auto) 14.0 H (2.0-8.3) x10*3/uL Absolute Nucleated RBC 0.000 (0.0-0.012) X10*3/uL Nucleated RBC % (auto) 0.0 (0.0-0.2) /100WBC Smear Tech's Comments VERIFIED PT 11.8 (10.0-13.1) SEC INR 1.0 (0.9-1.1) APTT 28.1 (26.0-36.4) SEC O2 Saturation 90.0 % ABG pH at Pt Temp 7.32 L (7.35-7.45) ABG pCO2 at Pt Temp 35 (32-45) mmHg ABG pO2 at Pt Temp 61 L (83-108) mmHg ABG HCO3 18 L (22-26) mmol/L ABG Base Excess (Actual) -6.4 mmol/L Sodium (135-145) mmol/L Potassium (3.3-5.1) mmol/L Chloride (96-108) mmol/L Carbon Dioxide (22-29) mmol/L Anion Gap (12-20) BUN (9-16) mg/dL Creatinine (0.5-1.4) mg/dL Estim Creat Clear Calc Estimated GFR Random Glucose (60-115) mg/dL Calcium (8.4-10.2) mg/dL Total Bilirubin (0.0-1.0) mg/dL AST (5-31) U/L ALT (0-31) U/L Alkaline Phosphatase (39-117) U/L Troponin I High Sens (<3.5-17.0) ng/L B-Natriuretic Peptide (<100) pg/mL Total Protein (6.5-8.0) g/dL Albumin (3.5-5.0) g/dL Stool Occult Blood (NEGATIVE) 03/07/23 03/07/23 03/07/23 Range/Units 13:39 13:39 13:39 WBC (4.8-10.8) X10*3/uL RBC (4.20-5.50) X10*6/uL Hgb (12.0-16.0) g/dl Hct (37.0-47.0) % MCV (80.0-98.0) fL MCH (27.0-33.0) pg MCHC (31.0-35.0) g/dl RDW (11.0-16.0) % Plt Count (160-400) X10*3/uL MPV (9.4-12.3) fL Immature Gran % (Auto) (0.0-0.4) % Neut % (Auto) (45-73) % Lymph % (Auto) (20-40) % [place] % (Auto) (2-11) % Eos % (Auto) (0-4) % Baso % (Auto) (0-2) % Lymph # (Auto) (1.2-4.9) X10*3/uL [place] # (Auto) (0.1-1.2) X10*3/uL Eos # (Auto) (0.0-0.4) X10*3/uL Baso # (Auto) (0.0-0.2) X10*3/uL Abs Immat Gran (auto) (0.00-0.03) X10*3/uL Absolute Neuts (auto) (2.0-8.3) x10*3/uL Absolute Nucleated RBC (0.0-0.012) X10*3/uL Nucleated RBC % (auto) (0.0-0.2) /100WBC Smear Tech's Comments PT (10.0-13.1) SEC INR (0.9-1.1) APTT (26.0-36.4) SEC O2 Saturation % ABG pH at Pt Temp (7.35-7.45) ABG pCO2 at Pt Temp (32-45) mmHg ABG pO2 at Pt Temp (83-108) mmHg ABG HCO3 (22-26) mmol/L ABG Base Excess (Actual) mmol/L Sodium 135 (135-145) mmol/L Potassium 4.7 (3.3-5.1) mmol/L Chloride 104 (96-108) mmol/L Carbon Dioxide 18 L (22-29) mmol/L Anion Gap 18 (12-20) BUN 116 H (9-16) mg/dL Creatinine 3.27 H (0.5-1.4) mg/dL Estim Creat Clear Calc 16.0 Estimated GFR 14 Random Glucose 155 H (60-115) mg/dL Calcium 9.7 D (8.4-10.2) mg/dL Total Bilirubin 0.3 (0.0-1.0) mg/dL AST 27 (5-31) U/L ALT 17 (0-31) U/L Alkaline Phosphatase 78 (39-117) U/L Troponin I High Sens > 3600.0 H* (<3.5-17.0) ng/L B-Natriuretic Peptide 3303 H (<100) pg/mL Total Protein 7.2 (6.5-8.0) g/dL Albumin 3.3 L (3.5-5.0) g/dL Stool Occult Blood (NEGATIVE) 03/07/23 Range/Units 14:43 WBC (4.8-10.8) X10*3/uL RBC (4.20-5.50) X10*6/uL Hgb (12.0-16.0) g/dl Hct (37.0-47.0) % MCV (80.0-98.0) fL MCH (27.0-33.0) pg MCHC (31.0-35.0) g/dl RDW (11.0-16.0) % Plt Count (160-400) X10*3/uL MPV (9.4-12.3) fL Immature Gran % (Auto) (0.0-0.4) % Neut % (Auto) (45-73) % Lymph % (Auto) (20-40) % [place] % (Auto) (2-11) % Eos % (Auto) (0-4) % Baso % (Auto) (0-2) % Lymph # (Auto) (1.2-4.9) X10*3/uL [place] # (Auto) (0.1-1.2) X10*3/uL Eos # (Auto) (0.0-0.4) X10*3/uL Baso # (Auto) (0.0-0.2) X10*3/uL Abs Immat Gran (auto) (0.00-0.03) X10*3/uL Absolute Neuts (auto) (2.0-8.3) x10*3/uL Absolute Nucleated RBC (0.0-0.012) X10*3/uL Nucleated RBC % (auto) (0.0-0.2) /100WBC Smear Tech's Comments PT (10.0-13.1) SEC INR (0.9-1.1) APTT (26.0-36.4) SEC O2 Saturation % ABG pH at Pt Temp (7.35-7.45) ABG pCO2 at Pt Temp (32-45) mmHg ABG pO2 at Pt Temp (83-108) mmHg ABG HCO3 (22-26) mmol/L ABG Base Excess (Actual) mmol/L Sodium (135-145) mmol/L Potassium (3.3-5.1) mmol/L Chloride (96-108) mmol/L Carbon Dioxide (22-29) mmol/L Anion Gap (12-20) BUN (9-16) mg/dL Creatinine (0.5-1.4) mg/dL Estim Creat Clear Calc Estimated GFR Random Glucose (60-115) mg/dL Calcium (8.4-10.2) mg/dL Total Bilirubin (0.0-1.0) mg/dL AST (5-31) U/L ALT (0-31) U/L Alkaline Phosphatase (39-117) U/L Troponin I High Sens (<3.5-17.0) ng/L B-Natriuretic Peptide (<100) pg/mL Total Protein (6.5-8.0) g/dL Albumin (3.5-5.0) g/dL Stool Occult Blood NEGATIVE (NEGATIVE) Independent Interpretation I performed an independent interpretation of an: EKG (sinus rhythm rate 71 intraventricular conduction) and Plain X-Ray Interpretation: CHF Radiology Impression Discussion of test interpretation with radiology: I have reviewed the radiologist's reading. Radiologist Impression: CHF Independent Historian Clinical information obtained from an independent historian. History obtained from or confirmed by: Other (Sons) Chronic Conditions CRF/CHF Critical Care Time Critical Care Time Critical Care Time: Yes Total Critical Care Time: 60 Attestation: taking care of pt speaking with the family Discharge Plan Discharge Clinical Impression: CHF (congestive heart failure), CKD (chronic kidney disease), Anemia, Elevated troponin I level Patient Disposition: Admitted As Inpatient
[2023-03-07 13:16] LABS: ABG Base Excess -6.4 mmol/L; ABG HCO3 18 mmol/L (22-26); ABG pCO2 35 mmHg (32-45); ABG pH 7.32 (7.35-7.45); ABG pO2 61 mmHg (83-108)
[2023-03-07 13:47] LABS: Basophils Percent Auto 0.1 % (0-2); Eosinophils Percent Auto 0.1 % (0-4); Hematocrit 21.5 % (37.0-47.0); Imm Gran Abs Auto 0.16 X10*3/uL (0.00-0.03); Lymphocytes Absolute Auto 0.6 X10*3/uL (1.2-4.9); Lymphocytes Percent Auto 3.8 % (20-40); MANUAL DIFF FLAG SCAN; Mean Corpuscular HGB Conc 32.6 g/dl (31.0-35.0); Mean Corpuscular Hemoglobin 29.9 pg (27.0-33.0); Mean Corpuscular Volume 91.9 fL (80.0-98.0); Mean Platelet Volume 10.9 fL (9.4-12.3); Monocytes Absolute Auto 0.6 X10*3/uL (0.1-1.2); Monocytes Percent Auto 3.6 % (2-11); Neutrophils Percent Auto 91.4 % (45-73); Platelet Count 271 X10*3/uL (160-400); Red Blood Count 2.34 X10*6/uL (4.20-5.50); Red Cell Distribution Width 14.6 % (11.0-16.0); SCAN SMEAR FLAG 1; White Blood Count 15.4 X10*3/uL (4.8-10.8)
[2023-03-07 13:53] LABS: Prothrombin Time 11.8 SEC (10.0-13.1)
[2023-03-07 13:56] LABS: Partial Thromboplastin Time 28.1 SEC (26.0-36.4)
[2023-03-07 14:08] LABS: Alanine Aminotransferase 17 U/L (0-31); Albumin Level 3.3 g/dL (3.5-5.0); Alkaline Phosphatase 78 U/L (39-117); Anion Gap 18 (12-20); Aspartate Amino Transferase 27 U/L (5-31); Bilirubin Total 0.3 mg/dL (0.0-1.0); Blood Urea Nitrogen 116 mg/dL (9-16); Calcium 9.7 mg/dL (8.4-10.2); Carbon Dioxide 18 mmol/L (22-29); Chloride 104 mmol/L (96-108); Estimated Glomerular Filt Rate 14; Glucose Random 155 mg/dL (60-115); Potassium 4.7 mmol/L (3.3-5.1); Sodium 135 mmol/L (135-145); Total Protein 7.2 g/dL (6.5-8.0)
[2023-03-07 14:14] LABS: B Type Natriuretic Peptide 3303 pg/mL (<100)
[2023-03-07] MEDS: Furosemide 100 MG/10 ML VIAL 80 MG IVPUSH (14:25)
[2023-03-07 14:43] LABS: SLIDE REVIEW VERIFIED
[2023-03-07 14:59] LABS: OBS Int Ctl Valid YES
[2023-03-07 15:00] LABS: OBS1 NEGATIVE (NEGATIVE)
[2023-03-07] MEDS: Lidocaine HCl 1 % MPF 5 ML VIAL INFILTRATI (15:04)
--- NOTE | 2023-03-07 15:28 | PC.NURSE ---
CB ([facility]) [phone]
--- NOTE | 2023-03-07 16:01 | PC.NURSE ---
MD IBANEZ MADE MULTIPLE ATTEMPTS AT MULTIPLE SITES TO OBTAIN SECOND IV LINE. ATTEMPTING WITH U/S GUIDED LINE WITHOUT SUCCESS
--- NOTE | 2023-03-07 16:36 | P.HPHOSP_ITS ---
History of Present Illness Date of Service: 03/07/23 Chief Complaint: SOB An 82 years lady with PMH of dCHF on 2L O2, CKD IV, HTN, HLD, CAD on medical tx who presents with SOB and dyspnea. reports she has been getting more SOB over the last 2 days but overnight she became very SOB with associated cough and dyspnea. no fever, chills, nausea, vomitng or change in bowel habits. She reports drinking fair amount of fluids as she feels thirsty from diuresis. Denies any chest pain, palpitations or sweating. In ED found to be in respiratory distress with hypoxia requiring placement on CPAP. improved and weaned down to 4L O2 as she received Lasix. Trop Elevated >3600 with no new EKG changes. BNP >3000 Drop in Hb from 8 to 7. Admitted for further eval and management., Review of Systems Review of Systems: No fever, chills but has weakness No chest pain, palpitation reporting shortness of breath and coughing No abdominal pain, nausea or vomiting No urinary symptoms No any rash or wounds PMFSH Medical History Abscess of forearm, right Acute on chronic diastolic heart failure Acute respiratory failure with hypoxia Anemia B12 deficiency Chronic renal insufficiency CKD (chronic kidney disease) Congestive heart failure Diabetes Femoral artery stenosis Gram-positive bacteremia High cholesterol Hypertension Hypoxia Lower extremity edema Psoriasis of scalp PVD (peripheral vascular disease) Family History Father No problems noted. Mother No problems noted. Surgical History History of female sterilization History of shoulder surgery Social History Household Members: Family Household Members Other:: Daughter Housing: House Do you presently have visiting nurse or other home services: Yes Alcohol intake: never Patient Tobacco Use Status: Never used Tobacco Smoked in Last 30 Days: No e-Cigarette/Vaping Use: Never Used Second Hand Smoke Exposure: No Use of substances other than those prescribed or required for medical reasons: No Advance Directives: Yes Advance Directives on File: Yes Advance Directives Date on File: 04/18/21 service: No Current occupational status: retired and disabled Cognitive needs: Yes Hearing needs: No Vision needs: No Meds Allergies Allergy/AdvReac Type Severity Reaction Status Date / Time Iodinated Contrast Media Allergy Unknown UNKNOWN Verified 08/13/22 16:05 [IODINATED CONTRAST MEDIA] Active Medications: Current Medications Acetaminophen (Acetaminophen 325 Mg Tablet) 650 mg PO Q6H PRN PRN Reason: Pain, Mild (Pain Scale 1-3) Bumetanide (Bumetanide 1 Mg/4 Ml Vial) 2 mg IVPUSH BID@0900,1700 [facility]; Protocol Enoxaparin Sodium (Enoxaparin Sodium 30 Mg/0.3 Ml Syringe) 30 mg SUBCUT Q24H [place] Nitroglycerin (Nitroglycerin 0.4 Mg Tab.Subl) 0.4 mg SUBLINGUAL Q5MX3 PRN PRN Reason: Chest Pain Pharmacy Consult (Consult Rx Perform Med Rec) 1 each MISCELLANE ONCE PRN PRN Reason: Consult order Sodium Chloride (0.9 % Sodium Chloride Flush 3 Ml Syringe) 3 ml IVFLUSH QSHIFT [facility] Home Medications Medication Instructions Recorded Confirmed Last Taken Type acetaminophen 325 mg tablet 650 mg PO Q6H PRN Pain 09/10/21 12/24/22 Unknown History amlodipine 10 mg tablet 10 mg PO BEDTIME 08/17/22 12/24/22 08/16/22 History cyanocobalamin (vitamin B-12) 1,000 mcg PO BEDTIME 08/17/22 12/24/22 08/16/22 History 1,000 mcg tablet (Vitamin B-12) multivitamin with folic acid 400 1 tab PO BEDTIME 08/17/22 12/24/22 08/16/22 History mcg tablet Physical Exam Vital Signs and Narrative: Vital Signs: Last Vital Signs Temp 97.5 F 03/07/23 16:26 Pulse 61 03/07/23 16:26 Resp 25 H 03/07/23 16:26 BP 145/57 H 03/07/23 16:26 Pulse Ox 91 L 03/07/23 16:26 O2 Del Method Nasal Cannula 03/07/23 16:26 O2 Flow Rate 4 03/07/23 16:26 Oxygen Flow Rate 6 03/07/23 13:05 BMI result Body Mass Index 34.1 Const: Other: Constitutional : Awake, interactive, not in distress Neck : Normal inspection, Supple Cardiovascular : RRR, no JVP, +1 lower extremity edema Respiratory : fair bilateral air entry, basal bilateral crackles, no wheezes Gastrointestinal: soft, lax, Normal bowel sounds, Non tender Skin : Warm, Dry Neurological : Alert & oriented x3, No focal deficit Results Labs 03/07/23 13:39 03/07/23 13:39 Labs: Laboratory Results - last 24 hr 03/07/23 03/07/23 03/07/23 13:06 13:39 13:39 MCV 91.9 MCH 29.9 MCHC 32.6 RDW 14.6 Plt Count 271 D MPV 10.9 Immature Gran % (Auto) 1.0 H Neut % (Auto) 91.4 H Lymph % (Auto) 3.8 L [place] % (Auto) 3.6 Eos % (Auto) 0.1 Baso % (Auto) 0.1 Lymph # (Auto) 0.6 L [place] # (Auto) 0.6 Eos # (Auto) 0.0 Baso # (Auto) 0.0 Abs Immat Gran (auto) 0.16 H Absolute Neuts (auto) 14.0 H Absolute Nucleated RBC 0.000 Nucleated RBC % (auto) 0.0 Smear Tech's Comments VERIFIED PT 11.8 INR 1.0 APTT 28.1 O2 Saturation 90.0 ABG pH at Pt Temp 7.32 L ABG pCO2 at Pt Temp 35 ABG pO2 at Pt Temp 61 L ABG HCO3 18 L ABG Base Excess (Actual) -6.4 Anion Gap Estim Creat Clear Calc Estimated GFR Random Glucose Calcium Total Bilirubin AST ALT Alkaline Phosphatase Troponin I High Sens B-Natriuretic Peptide Total Protein Albumin Stool Occult Blood 03/07/23 03/07/23 03/07/23 13:39 13:39 13:39 MCV MCH MCHC RDW Plt Count MPV Immature Gran % (Auto) Neut % (Auto) Lymph % (Auto) [place] % (Auto) Eos % (Auto) Baso % (Auto) Lymph # (Auto) [place] # (Auto) Eos # (Auto) Baso # (Auto) Abs Immat Gran (auto) Absolute Neuts (auto) Absolute Nucleated RBC Nucleated RBC % (auto) Smear Tech's Comments PT INR APTT O2 Saturation ABG pH at Pt Temp ABG pCO2 at Pt Temp ABG pO2 at Pt Temp ABG HCO3 ABG Base Excess (Actual) Anion Gap 18 Estim Creat Clear Calc 16.0 Estimated GFR 14 Random Glucose 155 H Calcium 9.7 D Total Bilirubin 0.3 AST 27 ALT 17 Alkaline Phosphatase 78 Troponin I High Sens > 3600.0 H* B-Natriuretic Peptide 3303 H Total Protein 7.2 Albumin 3.3 L Stool Occult Blood 03/07/23 14:43 MCV MCH MCHC RDW Plt Count MPV Immature Gran % (Auto) Neut % (Auto) Lymph % (Auto) [place] % (Auto) Eos % (Auto) Baso % (Auto) Lymph # (Auto) [place] # (Auto) Eos # (Auto) Baso # (Auto) Abs Immat Gran (auto) Absolute Neuts (auto) Absolute Nucleated RBC Nucleated RBC % (auto) Smear Tech's Comments PT INR APTT O2 Saturation ABG pH at Pt Temp ABG pCO2 at Pt Temp ABG pO2 at Pt Temp ABG HCO3 ABG Base Excess (Actual) Anion Gap Estim Creat Clear Calc Estimated GFR Random Glucose Calcium Total Bilirubin AST ALT Alkaline Phosphatase Troponin I High Sens B-Natriuretic Peptide Total Protein Albumin Stool Occult Blood NEGATIVE Imaging Radiologist's Impressions: Impressions Chest X-Ray 03/07/23 13:42 IMPRESSION: Cardiomegaly, pulmonary edema and small pleural effusions. The bibasilar opacities are likely from atelectasis and pleural effusions, although this examination would not be able to exclude any superimposed pneumonia. Assessment and Plan (1) CHF (congestive heart failure): Status: Acute (2) Elevated troponin I level: Status: Acute (3) Acute pulmonary edema: Status: Acute (4) Acute respiratory failure with hypoxia: Status: Acute Plan An 82 years lady with PMH of dCHF on 2L O2, CKD IV, HTN, HLD, CAD on medical tx who presents with SOB and dyspnea. Acute on chronic hypoxic respiratory failure 2/2 acute diastolic CHF exacerbation per CXR and high BNP IV Bumex I\O wean O2 down as tolerated Elevated Trop with CHF exacerbation NSTEMI equivilant start Lovenox full dose ASA, Plavix, increase Statin NTG prn Pending cardiology eval Acute on chronic symptomatic anemia Hb dropped to 7 Occult stool negative last admission, to recheck give 1 unit of blood follow CBC CKD 4 monitor BMP HTN hold Amlodipine DVT PPx Lovenox Needs inpatient hospital stay for >2 nights for treatment of hypoxic respiratory failure pending cardiology eval. Time Spent With Patient Time: Total time managing care of this patient today ____ minutes. Quality Stroke Does the patient have a stroke diagnosis?: No VTE Prior VTE?: No VTE Risk Level:: Medical - moderate - high VTE Device Contraindication: Treatment Not Indicated VTE Drug Contraindication: N/A - Med Ordered
[2023-03-07] MEDS: Bumetanide 1 MG/4 ML VIAL 2 MG IVPUSH (18:39)
[2023-03-07] MEDS: Aspirin Enteric Coated 325 MG TABLET.DR PO (18:39)
[2023-03-07] MEDS: Enoxaparin Sodium 100 MG/ML SYRINGE 90 MG SUBCUT (18:40)
--- NOTE | 2023-03-07 18:44 | PHA.MEDREC ---
Med rec complete, used list from patient's nursing facility Pharmacy Consult ? Medication Reconciliation Pharmacy has completed the medication reconciliation.
--- NOTE | 2023-03-07 19:46 | PC.NURSE ---
this rn assumed care of pt @ 1900. report given to floor rn. pt awaiting for transport to bed assignment. floor rn made this rn aware that blood bank [place] [facility] ready. ed staff not notified of blood being ready.
[2023-03-07] MEDS: Atorvastatin Calcium 80 MG TABLET PO (21:19)
[2023-03-07] MEDS: Pregabalin 25 MG CAPSULE PO (21:19)
[2023-03-07] MEDS: carvediloL 12.5 MG TABLET PO (21:19)
[2023-03-07] MEDS: 0.9 % Sodium Chloride Flush 3 ML SYRINGE IVFLUSH (21:40)
[2023-03-07] MEDS: Acetaminophen 325 MG TABLET 650 MG PO (21:40)
[2023-03-07] MEDS: ondansetron HCL 4 MG/2 ML VIAL IVPUSH (23:23)
[2023-03-08 04:00] VITALS: BP 151/67; PULSE 65; RESP 24; TEMP 36.8; O2SAT 92
[2023-03-08 06:31] LABS: Hematocrit 23.2 % (37.0-47.0); Hemoglobin 7.8 g/dl (12.0-16.0); Mean Corpuscular HGB Conc 33.6 g/dl (31.0-35.0); Mean Corpuscular Hemoglobin 30.1 pg (27.0-33.0); Mean Corpuscular Volume 89.6 fL (80.0-98.0); Mean Platelet Volume 10.8 fL (9.4-12.3); Platelet Count 241 X10*3/uL (160-400); Red Blood Count 2.59 X10*6/uL (4.20-5.50); White Blood Count 10.9 X10*3/uL (4.8-10.8)
[2023-03-08 06:47] LABS: Alanine Aminotransferase 14 U/L (0-31); Albumin Level 3.3 g/dL (3.5-5.0); Alkaline Phosphatase 75 U/L (39-117); Anion Gap 20 (12-20); Aspartate Amino Transferase 21 U/L (5-31); Bilirubin Total 0.3 mg/dL (0.0-1.0); Blood Urea Nitrogen 114 mg/dL (9-16); Calcium 9.5 mg/dL (8.4-10.2); Carbon Dioxide 19 mmol/L (22-29); Chloride 102 mmol/L (96-108); Creatinine Clr Calc Pharmacy 16.6; Estimated Glomerular Filt Rate 14; Glucose Random 133 mg/dL (60-115); Potassium 4.6 mmol/L (3.3-5.1); Sodium 136 mmol/L (135-145)
[2023-03-08 06:49] LABS: B Type Natriuretic Peptide 3413 pg/mL (<100)
[2023-03-08 07:32] VITALS: BP 139/63; PULSE 70; RESP 20; TEMP 36.5; O2SAT 96
--- NOTE | 2023-03-08 08:10 | MHC.CM.PN ---
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 CM has initiated and will follow for dc planning. IMM addressed.
[2023-03-08] MEDS: Aspirin Enteric Coated 81 MG TABLET.DR PO (09:36)
[2023-03-08] MEDS: amLODIPine Besylate 10 MG TABLET PO (09:36)
[2023-03-08] MEDS: Sodium Zirconium Cyclosilicate 10 GM POWD.PACK PO (09:36)
[2023-03-08] MEDS: Multivitamin TABLET 1 TAB PO (09:36)
[2023-03-08] MEDS: Bumetanide 1 MG/4 ML VIAL 2 MG IVPUSH (09:36)
[2023-03-08] MEDS: carvediloL 12.5 MG TABLET PO ×2 (09:36→20:32)
[2023-03-08] MEDS: Clopidogrel Bisulfate 75 MG TABLET PO (09:37)
[2023-03-08] MEDS: 0.9 % Sodium Chloride Flush 3 ML SYRINGE IVFLUSH (09:37)
[2023-03-08] MEDS: Acetaminophen 325 MG TABLET 650 MG PO (10:43)
[2023-03-08] MEDS: Furosemide 200 MG in 0.9 % Sodium Chloride 80 ML IVCONT (10:43)
[2023-03-08 11:13] VITALS: BP 161/69; PULSE 69; RESP 21; TEMP 36.1; O2SAT 92
--- NOTE | 2023-03-08 12:42 | HO.PM.IMPN ---
Subjective Subjective Date of Service: 03/08/23 Interval History: Seen and evaluated this morning complaining of dyspnea BNP still >1000 MNot making much of urine no other overnight events Review of Systems No fever, chills but has weakness No chest pain, palpitation reporting shortness of breath and coughing No abdominal pain, nausea or vomiting No urinary symptoms No any rash or wounds Physical Exam Vital Signs: Vital Signs: Last Vital Signs Temp 96.9 F 03/08/23 11:13 Pulse 69 03/08/23 11:13 Resp 21 H 03/08/23 11:13 BP 161/69 H 03/08/23 11:13 Pulse Ox 92 03/08/23 11:13 O2 Del Method Nasal Cannula 03/08/23 11:13 O2 Flow Rate 3 03/08/23 11:13 Oxygen Flow Rate 6 03/07/23 13:05 BMI result Body Mass Index 34.1 Const: Other: Constitutional : Awake, interactive, not in distress Neck : Normal inspection, Supple Cardiovascular : RRR, elevated JVP, +1 lower extremity edema Respiratory : fair bilateral air entry, basal bilateral crackles, no wheezes Gastrointestinal: soft, lax, Normal bowel sounds, Non tender Skin : Warm, Dry Neurological : Alert & oriented x3, No focal deficit Objective Data Active Medications Acetaminophen (Acetaminophen 325 Mg Tablet) 650 mg PO Q6H PRN PRN Reason: Pain, Mild (Pain Scale 1-3) Last Admin: 03/08/23 10:43 Dose: 650 mg Documented By: ELIZABETH Amlodipine Besylate (Amlodipine Besylate 10 Mg Tablet) 10 mg PO DAILY [facility]; Protocol Last Admin: 03/08/23 09:36 Dose: 10 mg Documented By: ELIZABETH Aspirin (Aspirin Enteric Coated 81 Mg Tablet.Dr) 81 mg PO DAILY [facility] Last Admin: 03/08/23 09:36 Dose: 81 mg Documented By: ELIZABETH Atorvastatin Calcium (Atorvastatin Calcium 80 Mg Tablet) 80 mg PO BEDTIME [facility] Last Admin: 03/07/23 21:19 Dose: 80 mg Documented By: ANNA Bisacodyl (Bisacodyl 10 Mg Supp.Rect) 10 mg [place] DAILY PRN PRN Reason: Constipation Carvedilol (Carvedilol 12.5 Mg Tablet) 12.5 mg PO BID [facility]; Protocol Last Admin: 03/08/23 09:36 Dose: 12.5 mg Documented By: ELIZABETH Clopidogrel Bisulfate (Clopidogrel Bisulfate 75 Mg Tablet) 75 mg PO DAILY [facility] Last Admin: 03/08/23 09:37 Dose: 75 mg Documented By: ELIZABETH Cyanocobalamin (Cyanocobalamin (Vitamin B-12) 1,000 Mcg Tablet) 1,000 mcg PO BEDTIME [facility] Enoxaparin Sodium (Enoxaparin Sodium 100 Mg/Ml Syringe) 90 mg SUBCUT Q24H [facility] Last Admin: 03/07/23 18:40 Dose: 90 mg Documented By: VAN Furosemide 200 mg/ Sodium (Chloride) 100 mls @ 5 mls/hr IVCONT .Q20H [facility] Last Admin: 03/08/23 10:43 Dose: 10 mg/hr, 5 mls/hr Documented By: ELIZABETH Morphine Sulfate (Morphine Sulfate Oral Jennifer 10 Mg/5 Ml Solution) 5 mg PO Q4H PRN PRN Reason: Pain (Scale Score 4-6) Multivitamins/Vitamin C (Multivitamin Tablet) 1 tab PO DAILY [facility] Last Admin: 03/08/23 09:36 Dose: 1 tab Documented By: ELIZABETH Nitroglycerin (Nitroglycerin 0.4 Mg Tab.Subl) 0.4 mg SUBLINGUAL Q5MX3 PRN PRN Reason: Chest Pain Ondansetron HCl (Ondansetron Hcl 4 Mg/2 Ml Vial) 4 mg IVPUSH Q8H PRN PRN Reason: Nausea and Vomiting Last Admin: 03/07/23 23:23 Dose: 4 mg Documented By: ANNA Pharmacy Consult (Consult Rx Perform Med Rec) 1 each MISCELLANE ONCE PRN PRN Reason: Consult order Pregabalin (Pregabalin 25 Mg Capsule) 25 mg PO BEDTIME [facility] Last Admin: 03/07/23 21:19 Dose: 25 mg Documented By: ANNA Sodium Biphosphate/Sodium Phosphate (Sodium Phosphate,[place]-Dibasic 133 Ml Enema) 118 ml [place] DAILY PRN PRN Reason: Constipation Sodium Chloride (0.9 % Sodium Chloride Flush 3 Ml Syringe) 3 ml IVFLUSH QSHIFT [facility] Last Admin: 03/08/23 09:37 Dose: 3 ml Documented By: ELIZABETH Sodium Zirconium Cyclosilicate (Sodium Zirconium Cyclosilicate 10 Gm Powd.Pack) 10 gm PO DAILY [place] Last Admin: 03/08/23 09:36 Dose: 10 gm Documented By: ELIZABETH Labs 03/08/23 05:50 03/08/23 05:50 Labs: Laboratory Results - last 24 hr 03/07/23 03/07/23 03/07/23 13:06 13:39 13:39 MCV 91.9 MCH 29.9 MCHC 32.6 RDW 14.6 Plt Count 271 D MPV 10.9 Immature Gran % (Auto) 1.0 H Neut % (Auto) 91.4 H Lymph % (Auto) 3.8 L [place] % (Auto) 3.6 Eos % (Auto) 0.1 Baso % (Auto) 0.1 Lymph # (Auto) 0.6 L [place] # (Auto) 0.6 Eos # (Auto) 0.0 Baso # (Auto) 0.0 Abs Immat Gran (auto) 0.16 H Absolute Neuts (auto) 14.0 H Absolute Nucleated RBC 0.000 Nucleated RBC % (auto) 0.0 Smear Tech's Comments VERIFIED PT 11.8 INR 1.0 APTT 28.1 O2 Saturation 90.0 ABG pH at Pt Temp 7.32 L ABG pCO2 at Pt Temp 35 ABG pO2 at Pt Temp 61 L ABG HCO3 18 L ABG Base Excess (Actual) -6.4 Anion Gap Estim Creat Clear Calc Estimated GFR Random Glucose Calcium Total Bilirubin AST ALT Alkaline Phosphatase Troponin I High Sens B-Natriuretic Peptide Total Protein Albumin Stool Occult Blood Blood Type Antibody Screen Crossmatch 03/07/23 03/07/23 03/07/23 13:39 13:39 13:39 MCV MCH MCHC RDW Plt Count MPV Immature Gran % (Auto) Neut % (Auto) Lymph % (Auto) [place] % (Auto) Eos % (Auto) Baso % (Auto) Lymph # (Auto) [place] # (Auto) Eos # (Auto) Baso # (Auto) Abs Immat Gran (auto) Absolute Neuts (auto) Absolute Nucleated RBC Nucleated RBC % (auto) Smear Tech's Comments PT INR APTT O2 Saturation ABG pH at Pt Temp ABG pCO2 at Pt Temp ABG pO2 at Pt Temp ABG HCO3 ABG Base Excess (Actual) Anion Gap 18 Estim Creat Clear Calc 16.0 Estimated GFR 14 Random Glucose 155 H Calcium 9.7 D Total Bilirubin 0.3 AST 27 ALT 17 Alkaline Phosphatase 78 Troponin I High Sens > 3600.0 H* B-Natriuretic Peptide 3303 H Total Protein 7.2 Albumin 3.3 L Stool Occult Blood Blood Type Antibody Screen Crossmatch 03/07/23 03/07/23 03/08/23 14:43 18:02 05:50 MCV MCH MCHC RDW Plt Count MPV Immature Gran % (Auto) Neut % (Auto) Lymph % (Auto) [place] % (Auto) Eos % (Auto) Baso % (Auto) Lymph # (Auto) [place] # (Auto) Eos # (Auto) Baso # (Auto) Abs Immat Gran (auto) Absolute Neuts (auto) Absolute Nucleated RBC Nucleated RBC % (auto) Smear Tech's Comments PT INR APTT O2 Saturation ABG pH at Pt Temp ABG pCO2 at Pt Temp ABG pO2 at Pt Temp ABG HCO3 ABG Base Excess (Actual) Anion Gap Estim Creat Clear Calc Estimated GFR Random Glucose Calcium Total Bilirubin AST ALT Alkaline Phosphatase Troponin I High Sens B-Natriuretic Peptide 3413 H Total Protein Albumin Stool Occult Blood NEGATIVE Blood Type A Positive Antibody Screen NEGATIVE Crossmatch See Detail 03/08/23 03/08/23 05:50 05:50 MCV 89.6 MCH 30.1 MCHC 33.6 RDW 15.0 Plt Count 241 MPV 10.8 Immature Gran % (Auto) Neut % (Auto) Lymph % (Auto) [place] % (Auto) Eos % (Auto) Baso % (Auto) Lymph # (Auto) [place] # (Auto) Eos # (Auto) Baso # (Auto) Abs Immat Gran (auto) Absolute Neuts (auto) Absolute Nucleated RBC 0.000 Nucleated RBC % (auto) 0.0 Smear Tech's Comments PT INR APTT O2 Saturation ABG pH at Pt Temp ABG pCO2 at Pt Temp ABG pO2 at Pt Temp ABG HCO3 ABG Base Excess (Actual) Anion Gap 20 Estim Creat Clear Calc 16.6 Estimated GFR 14 Random Glucose 133 H Calcium 9.5 Total Bilirubin 0.3 AST 21 ALT 14 Alkaline Phosphatase 75 Troponin I High Sens B-Natriuretic Peptide Total Protein 7.0 Albumin 3.3 L Stool Occult Blood Blood Type Antibody Screen Crossmatch Assessment and Plan (1) CHF (congestive heart failure): Status: Acute (2) Elevated troponin I level: Status: Acute Plan An 82 years lady with PMH of dCHF on 2L O2, CKD IV, HTN, HLD, CAD on medical tx who presents with SOB and dyspnea. Acute on chronic hypoxic respiratory failure 2/2 acute diastolic CHF exacerbation Not making much of urine BNP remains elevated DC IV Bumex Start IV lasix drip I\O wean O2 down as tolerated Elevated Trop with CHF exacerbation NSTEMI equivilant Continue Lovenox full dose ASA, Plavix, increase Statin NTG prn Pending cardiology eval Acute on chronic symptomatic anemia Hb improved to 7.8 after 1 unit transfusion Occult stool negative follow CBC CKD 4 monitor BMP HTN hold Amlodipine DVT PPx Lovenox Needs inpatient hospital stay for overnight for treatment of hypoxic respiratory failure pending cardiology eval. Time Spent With Patient Time: Total time managing care of this patient today ____ minutes. Quality Stroke Does the patient have a stroke diagnosis?: No VTE Prior VTE?: No VTE Risk Level:: Medical - moderate - high VTE Device Contraindication: Treatment Not Indicated VTE Drug Contraindication: N/A - Med Ordered
--- NOTE | 2023-03-08 13:46 | P.CONCA_ITS ---
History of Present Illness History of Present Illness Date of Service: 03/08/23 Consult reason: congestive heart failure and troponin elevation Chief complaint: SOB Narrative: I was consulted to see Kay in cardiology consultation today. History was obtained with help of for certified dialysis clinical manager at bedside. Patient is accompanied by her 2 daughters. History was obtained from the patient as well as patient's daughter. She was brought to the emergency room from [facility] because of acute sudden-onset shortness of breath. She was noted to be in decompensated congestive heart failure. Subsequent blood work also showed elevated troponins. She denies any chest pain. She has been diuresed but with poor diuresis response since admission. However she says she is breathing better. As per the daughter with CPAP she was breathing better but again this morning appears to be in mild respiratory distress. Despite the dialysis clinical manager she is a limited historian. She has had similar problems in the past with severe LV systolic dysfunction with regional wall motion and a consistent with ischemic cardiomyopathy. Given her multiple comorbidities including poor functional status, dementia, significant anemia, advanced kidney disease she has been managed conservatively in the past. Review of Systems Review of Systems: Yes Unobtainable due to mental status PMFSH Past Medical History Medical History Abscess of forearm, right Acute on chronic diastolic heart failure Acute respiratory failure with hypoxia Anemia B12 deficiency Chronic renal insufficiency CKD (chronic kidney disease) Congestive heart failure Diabetes Femoral artery stenosis Gram-positive bacteremia High cholesterol Hypertension Hypoxia Lower extremity edema Psoriasis of scalp PVD (peripheral vascular disease) Family History Family History Father No problems noted. Mother No problems noted. Surgical History Surgical History History of female sterilization History of shoulder surgery Social History Social History Household Members: Family Household Members Other:: Daughter Housing: Intermediate Do you presently have visiting nurse or other home services: Yes Alcohol intake: never Patient Tobacco Use Status: Never used Tobacco e-Cigarette/Vaping Use: Never Used Second Hand Smoke Exposure: No Advance Directives Date on File: 04/18/21 service: No Current occupational status: retired and disabled Cognitive needs: Yes Hearing needs: No Vision needs: No Meds Allergies Allergy/AdvReac Type Severity Reaction Status Date / Time Iodinated Contrast Media Allergy Unknown UNKNOWN Verified 08/13/22 16:05 [IODINATED CONTRAST MEDIA] Active Medications: Current Medications Acetaminophen (Acetaminophen 325 Mg Tablet) 650 mg PO Q6H PRN PRN Reason: Pain, Mild (Pain Scale 1-3) Last Admin: 03/08/23 10:43 Dose: 650 mg Amlodipine Besylate (Amlodipine Besylate 10 Mg Tablet) 10 mg PO DAILY [facility]; Protocol Last Admin: 03/08/23 09:36 Dose: 10 mg Aspirin (Aspirin Enteric Coated 81 Mg Tablet.Dr) 81 mg PO DAILY [facility] Last Admin: 03/08/23 09:36 Dose: 81 mg Atorvastatin Calcium (Atorvastatin Calcium 80 Mg Tablet) 80 mg PO BEDTIME [facility] Last Admin: 03/07/23 21:19 Dose: 80 mg Bisacodyl (Bisacodyl 10 Mg Supp.Rect) 10 mg AL DAILY PRN PRN Reason: Constipation Carvedilol (Carvedilol 12.5 Mg Tablet) 12.5 mg PO BID [facility]; Protocol Last Admin: 03/08/23 09:36 Dose: 12.5 mg Clopidogrel Bisulfate (Clopidogrel Bisulfate 75 Mg Tablet) 75 mg PO DAILY [facility] Last Admin: 03/08/23 09:37 Dose: 75 mg Cyanocobalamin (Cyanocobalamin (Vitamin B-12) 1,000 Mcg Tablet) 1,000 mcg PO BEDTIME [facility] Enoxaparin Sodium (Enoxaparin Sodium 100 Mg/Ml Syringe) 90 mg SUBCUT Q24H [facility] Last Admin: 03/07/23 18:40 Dose: 90 mg Hydralazine HCl (Hydralazine Hcl 10 Mg Tablet) 10 mg PO TID [facility]; Protocol Furosemide 200 mg/ Sodium (Chloride) 100 mls @ 5 mls/hr IVCONT .Q20H [facility] Last Admin: 03/08/23 10:43 Dose: 10 mg/hr, 5 mls/hr Isosorbide Dinitrate (Isosorbide Dinitrate 5 Mg Tablet) 5 mg PO 0800,1300,1800 [facility]; Protocol Morphine Sulfate (Morphine Sulfate Oral Jennifer 10 Mg/5 Ml Solution) 5 mg PO Q4H PRN PRN Reason: Pain (Scale Score 4-6) Multivitamins/Vitamin C (Multivitamin Tablet) 1 tab PO DAILY [facility] Last Admin: 03/08/23 09:36 Dose: 1 tab Nitroglycerin (Nitroglycerin 0.4 Mg Tab.Subl) 0.4 mg SUBLINGUAL Q5MX3 PRN PRN Reason: Chest Pain Ondansetron HCl (Ondansetron Hcl 4 Mg/2 Ml Vial) 4 mg IVPUSH Q8H PRN PRN Reason: Nausea and Vomiting Last Admin: 03/07/23 23:23 Dose: 4 mg Pharmacy Consult (Consult Rx Perform Med Rec) 1 each MISCELLANE ONCE PRN PRN Reason: Consult order Pregabalin (Pregabalin 25 Mg Capsule) 25 mg PO BEDTIME [facility] Last Admin: 03/07/23 21:19 Dose: 25 mg Sodium Biphosphate/Sodium Phosphate (Sodium Phosphate,[place]-Dibasic 133 Ml Enema) 118 ml AL DAILY PRN PRN Reason: Constipation Sodium Chloride (0.9 % Sodium Chloride Flush 3 Ml Syringe) 3 ml IVFLUSH QSHIFT [facility] Last Admin: 03/08/23 09:37 Dose: 3 ml Sodium Zirconium Cyclosilicate (Sodium Zirconium Cyclosilicate 10 Gm Powd.Pack) 10 gm PO DAILY [facility] Last Admin: 03/08/23 09:36 Dose: 10 gm Home Medications Medication Instructions Recorded Confirmed Last Taken Type acetaminophen 325 mg tablet 650 mg PO Q6H PRN Pain 09/10/21 03/07/23 Unknown History amlodipine 10 mg tablet 10 mg PO DAILY 08/17/22 03/07/23 08/16/22 History cyanocobalamin (vitamin B-12) 1,000 mcg PO BEDTIME 08/17/22 03/07/23 08/16/22 History 1,000 mcg tablet (Vitamin B-12) multivitamin with folic acid 400 1 tab PO DAILY 08/17/22 03/07/23 08/16/22 History mcg tablet bisacodyl 10 mg rectal suppository 10 mg AL DAILY PRN Constipation 03/07/23 03/07/23 Unknown History ferrous sulfate 325 mg (65 mg 1 tab PO DAILY 03/07/23 03/07/23 Unknown History iron) tablet (FeroSul) morphine concentrate 100 mg/5 mL 5 mg PO Q4H PRN Pain (Scale Score 03/07/23 03/07/23 Unknown History (20 mg/mL) oral solution 4-6) moxifloxacin 400 mg tablet 400 mg PO DAILY 03/07/23 03/07/23 Unknown History sodium phosphates 19 gram-7 118 ml AL DAILY PRN Constipation 03/07/23 03/07/23 Unknown History gram/118 mL enema (Fleet Enema) sodium zirconium cyclosilicate 10 10 g PO DAILY 03/07/23 03/07/23 Unknown History gram oral powder packet (Lokelma) Physical Exam Vital Signs: Vital Signs: Last Vital Signs Temp 96.9 F 03/08/23 11:13 Pulse 69 03/08/23 11:13 Resp 21 H 03/08/23 11:13 BP 161/69 H 03/08/23 11:13 Pulse Ox 92 03/08/23 11:13 O2 Del Method Nasal Cannula 03/08/23 11:13 O2 Flow Rate 3 03/08/23 11:13 Oxygen Flow Rate 6 03/07/23 13:05 BMI result Body Mass Index 34.1 Const: General: cooperative, comfortable and in distress moderate and respiratory Nutritional Appearance: obese Orientation/consciousness: patient oriented x3 HEENT: Head: Yes normocephalic and Yes atraumatic Neck: Neck: Yes trachea midline, Yes supple and Yes no JVD Resp: Effort & Inspection: decreased respiratory effort Auscultation: diminished lung sounds Cardio: Rate: regular rate Rhythm: regular rhythm Heart sounds: S1 normal heart sound present, S2 normal heart sound present, no click, no gallops and no murmurs GI: Auscultation: normal bowel sounds Skin: General skin exam: no rashes or lesions noted and ecchymosis Neuro: General: patient oriented x3 and no focal motor deficits Extrem: General: No clubbing, No cyanosis and Yes edema Objective Labs and Meds 03/08/23 05:50 03/08/23 05:50 Lab results: Laboratory Results - last 24 hr 03/07/23 03/07/23 03/07/23 13:39 13:39 13:39 WBC 15.4 H RBC 2.34 L Hgb 7.0 L* Hct 21.5 L MCV 91.9 MCH 29.9 MCHC 32.6 RDW 14.6 Plt Count 271 D MPV 10.9 Immature Gran % (Auto) 1.0 H Neut % (Auto) 91.4 H Lymph % (Auto) 3.8 L [place] % (Auto) 3.6 Eos % (Auto) 0.1 Baso % (Auto) 0.1 Lymph # (Auto) 0.6 L [place] # (Auto) 0.6 Eos # (Auto) 0.0 Baso # (Auto) 0.0 Abs Immat Gran (auto) 0.16 H Absolute Neuts (auto) 14.0 H Absolute Nucleated RBC 0.000 Nucleated RBC % (auto) 0.0 Smear Tech's Comments VERIFIED PT 11.8 INR 1.0 APTT 28.1 Sodium 135 Potassium 4.7 Chloride 104 Carbon Dioxide 18 L Anion Gap 18 BUN 116 H Creatinine 3.27 H Estim Creat Clear Calc 16.0 Estimated GFR 14 Random Glucose 155 H Calcium 9.7 D Total Bilirubin 0.3 AST 27 ALT 17 Alkaline Phosphatase 78 Troponin I High Sens B-Natriuretic Peptide Total Protein 7.2 Albumin 3.3 L Stool Occult Blood Blood Type Antibody Screen Crossmatch 03/07/23 03/07/23 03/07/23 13:39 13:39 14:43 WBC RBC Hgb Hct MCV MCH MCHC RDW Plt Count MPV Immature Gran % (Auto) Neut % (Auto) Lymph % (Auto) [place] % (Auto) Eos % (Auto) Baso % (Auto) Lymph # (Auto) [place] # (Auto) Eos # (Auto) Baso # (Auto) Abs Immat Gran (auto) Absolute Neuts (auto) Absolute Nucleated RBC Nucleated RBC % (auto) Smear Tech's Comments PT INR APTT Sodium Potassium Chloride Carbon Dioxide Anion Gap BUN Creatinine Estim Creat Clear Calc Estimated GFR Random Glucose Calcium Total Bilirubin AST ALT Alkaline Phosphatase Troponin I High Sens > 3600.0 H* B-Natriuretic Peptide 3303 H Total Protein Albumin Stool Occult Blood NEGATIVE Blood Type Antibody Screen Crossmatch 03/07/23 03/08/23 03/08/23 18:02 05:50 05:50 WBC 10.9 H RBC 2.59 L Hgb 7.8 L Hct 23.2 L MCV 89.6 MCH 30.1 MCHC 33.6 RDW 15.0 Plt Count 241 MPV 10.8 Immature Gran % (Auto) Neut % (Auto) Lymph % (Auto) [place] % (Auto) Eos % (Auto) Baso % (Auto) Lymph # (Auto) [place] # (Auto) Eos # (Auto) Baso # (Auto) Abs Immat Gran (auto) Absolute Neuts (auto) Absolute Nucleated RBC 0.000 Nucleated RBC % (auto) 0.0 Smear Tech's Comments PT INR APTT Sodium Potassium Chloride Carbon Dioxide Anion Gap BUN Creatinine Estim Creat Clear Calc Estimated GFR Random Glucose Calcium Total Bilirubin AST ALT Alkaline Phosphatase Troponin I High Sens B-Natriuretic Peptide 3413 H Total Protein Albumin Stool Occult Blood Blood Type A Positive Antibody Screen NEGATIVE Crossmatch See Detail 03/08/23 05:50 WBC RBC Hgb Hct MCV MCH MCHC RDW Plt Count MPV Immature Gran % (Auto) Neut % (Auto) Lymph % (Auto) [place] % (Auto) Eos % (Auto) Baso % (Auto) Lymph # (Auto) [place] # (Auto) Eos # (Auto) Baso # (Auto) Abs Immat Gran (auto) Absolute Neuts (auto) Absolute Nucleated RBC Nucleated RBC % (auto) Smear Tech's Comments PT INR APTT Sodium 136 Potassium 4.6 Chloride 102 Carbon Dioxide 19 L Anion Gap 20 BUN 114 H Creatinine 3.16 H Estim Creat Clear Calc 16.6 Estimated GFR 14 Random Glucose 133 H Calcium 9.5 Total Bilirubin 0.3 AST 21 ALT 14 Alkaline Phosphatase 75 Troponin I High Sens B-Natriuretic Peptide Total Protein 7.0 Albumin 3.3 L Stool Occult Blood Blood Type Antibody Screen Crossmatch EKG shows normal sinus rhythm nonspecific ST T wave changes Imaging Radiologist's impression: Impressions Chest X-Ray 03/07/23 13:42 IMPRESSION: Cardiomegaly, pulmonary edema and small pleural effusions. The bibasilar opacities are likely from atelectasis and pleural effusions, although this examination would not be able to exclude any superimposed pneumonia. Assessment and Plan (1) Acute pulmonary edema: Status: Acute Acute pulmonary edema in this elderly woman with multiple comorbidities including poor functional status, cognitive dysfunction, advanced renal dysfunction, severe anemia with moderate to severe LV systolic dysfunction suggestive ischemic cardiomyopathy by echocardiogram. High likelihood of underlying obstructive coronary artery disease. She comes recurrent [place] with recurrent pulmonary edema at this point time. This is most likely ischemic in nature. There is high likelihood of underlying obstructive coronary artery disease. This has been discussed with her in the past as well. She has had poor response to IV Lasix drip. Will give a metolazone 5 mg in addition to Lasix drip. Strict intake and output chart needs to be pursued. She has elevated troponin consistent with NSTEMI. This is most likely related to underlying coronary artery disease. Given her multiple comorbidities management would be conservative and was discussed with the family member in the understand in the agree. Start vasodilators therapy with hydralazine and Isordil. Continue Lovenox for total of 48 hours. Continue aspirin as well as high- intensity statin therapy. Overall prognosis is guarded. Greater than 45 minutes was spent in managing her complex care. Time Spent With Patient Time: Total time managing care of this patient today ____ minutes. Procedures Date of Service Date of Service: 03/08/23
[2023-03-08] MEDS: Isosorbide Dinitrate 5 MG TABLET PO ×2 (14:40→17:08)
[2023-03-08] MEDS: hydrALAZINE HCl 10 MG TABLET PO ×2 (14:40→20:32)
[2023-03-08] MEDS: metOLazone 5 MG TABLET PO (14:40)
[2023-03-08 15:22] VITALS: BP 128/56; PULSE 67; RESP 16; TEMP 36.2; O2SAT 95
[2023-03-08 16:37] LABS: Glucose, Whole Blood 163 mg/dL (60-115)
[2023-03-08] MEDS: Enoxaparin Sodium 100 MG/ML SYRINGE 90 MG SUBCUT (17:08)
[2023-03-08 19:06] VITALS: BP 142/56; PULSE 68; RESP 20; TEMP 36.4; O2SAT 94
[2023-03-08 20:14] LABS: Glucose, Whole Blood 167 mg/dL (60-115)
[2023-03-08] MEDS: Cyanocobalamin (Vitamin B-12) 1,000 MCG TABLET 1000 MCG PO (20:31)
[2023-03-08] MEDS: Pregabalin 25 MG CAPSULE PO (20:32)
[2023-03-08] MEDS: Atorvastatin Calcium 80 MG TABLET PO (20:32)
[2023-03-09] VITALS: BP 143/67; PULSE 66; RESP 16; TEMP 36.4; O2SAT 96
[2023-03-09 03:22] VITALS: BP 145/65; PULSE 70; RESP 16; TEMP 36.3; O2SAT 94
[2023-03-09 06:33] LABS: Hematocrit 22.2 % (37.0-47.0); Hemoglobin 7.3 g/dl (12.0-16.0); Mean Corpuscular HGB Conc 32.9 g/dl (31.0-35.0); Mean Corpuscular Hemoglobin 29.8 pg (27.0-33.0); Mean Corpuscular Volume 90.6 fL (80.0-98.0); Mean Platelet Volume 11.4 fL (9.4-12.3); Platelet Count 222 X10*3/uL (160-400); Red Blood Count 2.45 X10*6/uL (4.20-5.50); Red Cell Distribution Width 15.1 % (11.0-16.0); White Blood Count 9.2 X10*3/uL (4.8-10.8)
[2023-03-09] MEDS: Furosemide 200 MG in 0.9 % Sodium Chloride 80 ML IVCONT (06:34)
[2023-03-09 06:50] LABS: Anion Gap 19 (12-20); Blood Urea Nitrogen 115 mg/dL (9-16); Calcium 9.4 mg/dL (8.4-10.2); Carbon Dioxide 20 mmol/L (22-29); Chloride 100 mmol/L (96-108); Creatinine Clr Calc Pharmacy 15.6; Estimated Glomerular Filt Rate 13; Glucose Random 96 mg/dL (60-115); Potassium 4.4 mmol/L (3.3-5.1); Sodium 135 mmol/L (135-145)
[2023-03-09 07:01] LABS: B Type Natriuretic Peptide 2303 pg/mL (<100)
[2023-03-09 07:36] VITALS: BP 146/65; PULSE 71; RESP 20; TEMP 36.5; O2SAT 96
[2023-03-09] MEDS: Multivitamin TABLET 1 TAB PO (09:02)
[2023-03-09] MEDS: 0.9 % Sodium Chloride Flush 3 ML SYRINGE IVFLUSH ×2 (09:02→16:01)
[2023-03-09] MEDS: Aspirin Enteric Coated 81 MG TABLET.DR PO (09:02)
[2023-03-09] MEDS: Sodium Zirconium Cyclosilicate 10 GM POWD.PACK PO (09:02)
[2023-03-09] MEDS: hydrALAZINE HCl 10 MG TABLET PO ×3 (09:02→21:15)
[2023-03-09] MEDS: Clopidogrel Bisulfate 75 MG TABLET PO (09:03)
[2023-03-09] MEDS: Isosorbide Dinitrate 5 MG TABLET PO ×3 (09:03→18:04)
[2023-03-09] MEDS: amLODIPine Besylate 10 MG TABLET PO (09:03)
[2023-03-09] MEDS: carvediloL 12.5 MG TABLET PO ×2 (09:03→21:15)
--- NOTE | 2023-03-09 09:20 | PC.NURSE ---
Lasix drip increased to 20ml/ hr per dr red
[2023-03-09] MEDS: Acetaminophen 325 MG TABLET 650 MG PO (09:36)
[2023-03-09] MEDS: metOLazone 5 MG TABLET PO (09:37)
--- NOTE | 2023-03-09 10:00 | HO.PM.IMPN ---
Subjective Subjective Date of Service: 03/09/23 Interval History: Seen and evaluated this morning complaining of dyspnea BNP down to 2300 but still significantly edematous Not making much of urine no other overnight events Review of Systems No fever, chills but has weakness No chest pain, palpitation reporting shortness of breath and coughing with blood streaks No abdominal pain, nausea or vomiting No urinary symptoms No any rash or wounds Physical Exam Vital Signs: Vital Signs: Last Vital Signs Temp 97.7 F 03/09/23 07:36 Pulse 71 03/09/23 07:36 Resp 20 03/09/23 07:36 BP 146/65 H 03/09/23 07:36 Pulse Ox 96 03/09/23 07:36 O2 Del Method Nasal Cannula 03/09/23 07:36 O2 Flow Rate 5 03/09/23 07:36 Oxygen Flow Rate 6 03/07/23 13:05 BMI result Body Mass Index 34.1 Const: Other: Constitutional : Awake, interactive, not in distress Neck : Normal inspection, Supple Cardiovascular : RRR, elevated JVP, +2 lower extremity edema Respiratory : fair bilateral air entry, basal bilateral crackles, no wheezes Gastrointestinal: soft, lax, Normal bowel sounds, Non tender Skin : Warm, Dry Neurological : Alert & oriented x3, No focal deficit Objective Data Active Medications Acetaminophen (Acetaminophen 325 Mg Tablet) 650 mg PO Q6H PRN PRN Reason: Pain, Mild (Pain Scale 1-3) Last Admin: 03/09/23 09:36 Dose: 650 mg Documented By: ANTOLIN Amlodipine Besylate (Amlodipine Besylate 10 Mg Tablet) 10 mg PO DAILY [facility]; Protocol Last Admin: 03/09/23 09:03 Dose: 10 mg Documented By: ANTOLIN Aspirin (Aspirin Enteric Coated 81 Mg Tablet.) 81 mg PO DAILY [facility] Last Admin: 03/09/23 09:02 Dose: 81 mg Documented By: ANTOLIN Atorvastatin Calcium (Atorvastatin Calcium 80 Mg Tablet) 80 mg PO BEDTIME [facility] Last Admin: 03/08/23 20:32 Dose: 80 mg Documented By: ANNA Bisacodyl (Bisacodyl 10 Mg Supp.Rect) 10 mg IN DAILY PRN PRN Reason: Constipation Carvedilol (Carvedilol 12.5 Mg Tablet) 12.5 mg PO BID [facility]; Protocol Last Admin: 03/09/23 09:03 Dose: 12.5 mg Documented By: ANTOLIN Clopidogrel Bisulfate (Clopidogrel Bisulfate 75 Mg Tablet) 75 mg PO DAILY [facility] Last Admin: 03/09/23 09:03 Dose: 75 mg Documented By: ANTOLIN Cyanocobalamin (Cyanocobalamin (Vitamin B-12) 1,000 Mcg Tablet) 1,000 mcg PO BEDTIME [facility] Last Admin: 03/08/23 20:31 Dose: 1,000 mcg Documented By: ANNA Enoxaparin Sodium (Enoxaparin Sodium 100 Mg/Ml Syringe) 90 mg SUBCUT Q24H [facility] Last Admin: 03/08/23 17:08 Dose: 90 mg Documented By: ELIZABETH Hydralazine HCl (Hydralazine Hcl 10 Mg Tablet) 10 mg PO TID [facility]; Protocol Last Admin: 03/09/23 09:02 Dose: 10 mg Documented By: ANTOLIN Furosemide 200 mg/ Sodium (Chloride) 100 mls @ 10 mls/hr IVCONT .Q10H [facility] Last Admin: 03/09/23 06:34 Dose: 10 mg/hr, 5 mls/hr Documented By: ANNA Isosorbide Dinitrate (Isosorbide Dinitrate 5 Mg Tablet) 5 mg PO 0800,1300,1800 [facility]; Protocol Last Admin: 03/09/23 09:03 Dose: 5 mg Documented By: ANTOLIN Morphine Sulfate (Morphine Sulfate Oral Jennifer 10 Mg/5 Ml Solution) 5 mg PO Q4H PRN PRN Reason: Pain (Scale Score 4-6) Multivitamins/Vitamin C (Multivitamin Tablet) 1 tab PO DAILY [facility] Last Admin: 03/09/23 09:02 Dose: 1 tab Documented By: ANTOLIN Nitroglycerin (Nitroglycerin 0.4 Mg Tab.Subl) 0.4 mg SUBLINGUAL Q5MX3 PRN PRN Reason: Chest Pain Ondansetron HCl (Ondansetron Hcl 4 Mg/2 Ml Vial) 4 mg IVPUSH Q8H PRN PRN Reason: Nausea and Vomiting Last Admin: 03/07/23 23:23 Dose: 4 mg Documented By: ANNA Pharmacy Consult (Consult Rx Perform Med Rec) 1 each MISCELLANE ONCE PRN PRN Reason: Consult order Pregabalin (Pregabalin 25 Mg Capsule) 25 mg PO BEDTIME [facility] Last Admin: 03/08/23 20:32 Dose: 25 mg Documented By: ANNA Sodium Biphosphate/Sodium Phosphate (Sodium Phosphate,[place]-Dibasic 133 Ml Enema) 118 ml IN DAILY PRN PRN Reason: Constipation Sodium Chloride (0.9 % Sodium Chloride Flush 3 Ml Syringe) 3 ml IVFLUSH QSHIFT [facility] Last Admin: 03/09/23 09:02 Dose: 3 ml Documented By: ANTOLIN Sodium Zirconium Cyclosilicate (Sodium Zirconium Cyclosilicate 10 Gm Powd.Pack) 10 gm PO DAILY [facility] Last Admin: 03/09/23 09:02 Dose: 10 gm Documented By: ANTOLIN Labs 03/09/23 05:42 03/09/23 05:42 Labs: Laboratory Results - last 24 hr 03/08/23 03/08/23 03/09/23 16:23 19:51 05:42 MCV 90.6 MCH 29.8 MCHC 32.9 RDW 15.1 Plt Count 222 MPV 11.4 Absolute Nucleated RBC 0.000 Nucleated RBC % (auto) 0.0 Anion Gap Estim Creat Clear Calc Estimated GFR POC Glucose 163 H 167 H Random Glucose Calcium B-Natriuretic Peptide 03/09/23 03/09/23 05:42 05:42 MCV MCH MCHC RDW Plt Count MPV Absolute Nucleated RBC Nucleated RBC % (auto) Anion Gap 19 Estim Creat Clear Calc 15.6 Estimated GFR 13 POC Glucose Random Glucose 96 Calcium 9.4 B-Natriuretic Peptide 2303 H Assessment and Plan (1) Elevated troponin I level: Status: Acute (2) CHF (congestive heart failure): Status: Acute (3) Acute pulmonary edema: Status: Acute Plan An 82 years lady with PMH of dCHF on 2L O2, CKD IV, HTN, HLD, CAD on medical tx who presents with SOB and dyspnea. Acute on chronic hypoxic respiratory failure 2/2 acute diastolic CHF exacerbation Not making much of urine, no accurate readings BNP down to 2300 Increase IV lasix drip to 20mg\hr Add Metolazone I\O wean O2 down as tolerated Elevated Trop with CAD Lovenox full dose for 48 hours continue ASA, Plavix, increase Statin Isordil tid Hydralazine tid Pending cardiology eval Acute on chronic symptomatic anemia Hb improved to 7.3 after 1 unit transfusion Occult stool negative follow CBC CKD 4 monitor BMP HTN hold Amlodipine DVT PPx Lovenox I had the chance to speak with the HCP of patient about current medical issues. she understands that her mother condition has been deteriorating steadily over the last period of time as he ischemic heart condition not resolved and no plans for interventions. she agreed to change her status to DNR\DNI as patient also made it clear she doesnt want dialysis. Will continue medical management for now with understanding of ASSURANCE SENIOR status if she continues to deteriorate. Needs inpatient hospital stay for overnight for treatment of hypoxic respiratory failure pending clinical improvement Time Spent With Patient Time: Total time managing care of this patient today ____ minutes. Quality Stroke Does the patient have a stroke diagnosis?: No VTE Prior VTE?: No VTE Risk Level:: Medical - moderate - high VTE Device Contraindication: Treatment Not Indicated VTE Drug Contraindication: N/A - Med Ordered
--- NOTE | 2023-03-09 11:12 | P.PNCA_ITS ---
Subjective Subjective Date of Service: 03/09/23 Principal diagnosis: Congestive heart failure and acute DE Interval history: Patient overnight has no significant improvement in her symptoms. Continues to have shortness of breath. Reported to have chest pain. Not diuresing well. Discussed with the family about possibility of dialysis and patient has completely refused. Patient is currently do not resuscitate Review of Systems Cardiovascular: Reports chest pain at rest, Reports leg edema, Denies lightheadedness, Denies Loss of Consciousness, Denies palpitations and Reports dyspnea Respiratory: Reports dyspnea Endocrine: Denies palpitations Physical Exam Vital Signs: Last Vital Signs Temp 97.7 F 03/09/23 07:36 Pulse 71 03/09/23 07:36 Resp 20 03/09/23 07:36 BP 146/65 H 03/09/23 07:36 Pulse Ox 96 03/09/23 07:36 O2 Del Method Nasal Cannula 03/09/23 07:36 O2 Flow Rate 5 03/09/23 07:36 Oxygen Flow Rate 6 03/07/23 13:05 BMI result Body Mass Index 34.1 Const General: in distress moderate and respiratory Nutritional Appearance: obese Orientation/consciousness: patient oriented x3 HEENT Head: Yes normocephalic and Yes atraumatic Neck Neck: Yes trachea midline and Yes supple Resp Effort & Inspection: decreased respiratory effort Auscultation: rales and diminished lung sounds Cardio Rate: regular rate Rhythm: regular rhythm Heart sounds: S1 normal heart sound present, S2 normal heart sound present, no click, no gallops and no murmurs GI Auscultation: normal bowel sounds Skin General skin exam: no rashes or lesions noted and ecchymosis Neuro General: patient oriented x3 and no focal motor deficits Extrem General: No clubbing, No cyanosis and Yes edema Objective Labs and Meds 03/09/23 05:42 03/09/23 05:42 Lab results: Laboratory Results - last 24 hr 03/08/23 03/08/23 03/09/23 16: 19:51 05:42 WBC 9.2 RBC 2.45 L Hgb 7.3 L Hct 22.2 L MCV 90.6 MCH 29.8 MCHC 32.9 RDW 15.1 Plt Count 222 MPV 11.4 Absolute Nucleated RBC 0.000 Nucleated RBC % (auto) 0.0 Sodium Potassium Chloride Carbon Dioxide Anion Gap BUN Creatinine Estim Creat Clear Calc Estimated GFR POC Glucose 163 H 167 H Random Glucose Calcium B-Natriuretic Peptide 03/09/23 03/09/23 05:42 05:42 WBC RBC Hgb Hct MCV MCH MCHC RDW Plt Count MPV Absolute Nucleated RBC Nucleated RBC % (auto) Sodium 135 Potassium 4.4 Chloride 100 Carbon Dioxide 20 L Anion Gap 19 BUN 115 H Creatinine 3.36 H Estim Creat Clear Calc 15.6 Estimated GFR 13 POC Glucose Random Glucose 96 Calcium 9.4 B-Natriuretic Peptide 2303 H Imaging Radiologist's impression: Impressions Chest X-Ray 03/09/23 08:03 IMPRESSION: Mild interval improvement in pulmonary vascular congestion. Progress Note: A&P Assessment and plan (1) Acute respiratory failure with hypoxia: Status: Acute Assessment and Plan: Acute congestive heart failure with acute respiratory failure. Patient deterio rating. Not responding to IV diuretics. Patient has declined dialyses treatment given her multiple comorbidities. She is also currently do not resuscitate do not intubate. Prognosis extremely guarded. Discussed about possibility of comfort care. Meanwhile will change her diuretic drip to Bumex hopefully with the hope of improving diuretic response. Will also add metolazone 5 mg to regimen. Continue vasodilators therapy. Will follow with you Time Spent With Patient Time: Total time managing care of this patient today ____ minutes. Progress Note: Quality Stroke Does the patient have a stroke diagnosis?: No Procedures Date of Service Date of Service: 03/09/23
[2023-03-09 11:33] VITALS: BP 134/60; PULSE 66; RESP 20; TEMP 36.3; O2SAT 96
[2023-03-09] MEDS: Bumetanide 25 MG in Container,Empty 0 ML IVCONT (12:18)
[2023-03-09 15:17] VITALS: BP 144/64; PULSE 69; RESP 16; TEMP 36.2; O2SAT 95
[2023-03-09 16:31] LABS: Glucose, Whole Blood 186 mg/dL (60-115)
[2023-03-09 19:32] VITALS: BP 141/63; PULSE 77; RESP 20; TEMP 36.4; O2SAT 93
[2023-03-09 20:42] LABS: Anion Gap 18 (12-20); Blood Urea Nitrogen 118 mg/dL (9-16); Calcium 9.3 mg/dL (8.4-10.2); Carbon Dioxide 20 mmol/L (22-29); Chloride 99 mmol/L (96-108); Creatinine Clr Calc Pharmacy 15.6; Estimated Glomerular Filt Rate 13; Glucose Random 224 mg/dL (60-115); Sodium 133 mmol/L (135-145)
[2023-03-09] MEDS: Cyanocobalamin (Vitamin B-12) 1,000 MCG TABLET 1000 MCG PO (21:15)
[2023-03-09] MEDS: Atorvastatin Calcium 80 MG TABLET PO (21:15)
[2023-03-09] MEDS: Pregabalin 25 MG CAPSULE PO (21:16)
[2023-03-09 21:42] LABS: Glucose, Whole Blood 201 mg/dL (60-115)
[2023-03-10] VITALS (9 sets, daily range): BP systolic 118–156; BP diastolic 44–70; PULSE 61–75; RESP 14–24; TEMP 35.9–37; O2SAT 91–94
--- NOTE | 2023-03-10 03:39 | PC.NURSE ---
pt had 3 beat run and followed by 7 beat, o2 sats 90-91 percent and she stated is difficult to deep breath .she is now on 6 L of o2 . d notified order rceved for morphine 4 mg iv , also labs bnp ordered albuterol tx. and chest x-ray will monitor
[2023-03-10] MEDS: Morphine Sulfate 4 MG/ML CARTRIDGE IVPUSH (03:55)
[2023-03-10 04:28] LABS: Hematocrit 21.2 % (37.0-47.0); Hemoglobin 7.1 g/dl (12.0-16.0); Mean Corpuscular HGB Conc 33.5 g/dl (31.0-35.0); Mean Corpuscular Volume 89.5 fL (80.0-98.0); Mean Platelet Volume 10.6 fL (9.4-12.3); Platelet Count 207 X10*3/uL (160-400); Red Blood Count 2.37 X10*6/uL (4.20-5.50); Red Cell Distribution Width 15.2 % (11.0-16.0); White Blood Count 10.5 X10*3/uL (4.8-10.8)
[2023-03-10 04:43] LABS: Anion Gap 20 (12-20); Blood Urea Nitrogen 117 mg/dL (9-16); Calcium 9.3 mg/dL (8.4-10.2); Carbon Dioxide 19 mmol/L (22-29); Chloride 100 mmol/L (96-108); Creatinine Clr Calc Pharmacy 15.9; Estimated Glomerular Filt Rate 13; Glucose Random 120 mg/dL (60-115); Potassium 4.1 mmol/L (3.3-5.1); Sodium 135 mmol/L (135-145)
[2023-03-10 04:49] LABS: B Type Natriuretic Peptide 2377 pg/mL (<100)
[2023-03-10] MEDS: amLODIPine Besylate 10 MG TABLET PO (08:56)
[2023-03-10] MEDS: Multivitamin TABLET 1 TAB PO (08:56)
[2023-03-10] MEDS: Aspirin Enteric Coated 81 MG TABLET.DR PO (08:56)
[2023-03-10] MEDS: Clopidogrel Bisulfate 75 MG TABLET PO (08:56)
[2023-03-10] MEDS: hydrALAZINE HCl 10 MG TABLET PO (08:56)
[2023-03-10] MEDS: Isosorbide Dinitrate 5 MG TABLET PO ×3 (08:56→18:00)
[2023-03-10] MEDS: 0.9 % Sodium Chloride Flush 3 ML SYRINGE IVFLUSH ×2 (08:57→17:55)
[2023-03-10] MEDS: Sodium Zirconium Cyclosilicate 10 GM POWD.PACK PO (08:57)
[2023-03-10] MEDS: carvediloL 12.5 MG TABLET PO (08:57)
--- NOTE | 2023-03-10 09:57 | PM.PNCARD ---
Subjective Subjective Date of Service: 03/10/23 Principal diagnosis: Congestive heart failure and acute MT Interval history: Seen examined at bedside with campaign management senior manager. She is saying she is feeling little better compared to yesterday. Has been experiencing some mild chest tightness off and. On supplemental oxygen and Bumex drip. Physical Exam Vital Signs: Last Vital Signs Temp 96.6 F L 03/10/23 08:00 Pulse 70 03/10/23 08:00 Resp 16 03/10/23 08:00 BP 118/44 L 03/10/23 08:00 Pulse Ox 93 03/10/23 08:00 O2 Del Method Nasal Cannula 03/10/23 08:00 O2 Flow Rate 5 03/10/23 08:00 Oxygen Flow Rate 6 03/07/23 13:05 BMI result Body Mass Index 34.1 GENERAL APPEARANCE: in no acute distress, on supplemental oxygen. NECK: no carotid bruit, + jugular venous distention. SKIN: no suspicious lesions, warm and dry. HEART: no murmurs, regular rate and rhythm. LUNGS: Crackles at bases. ABDOMEN: soft, nontender. EXTREMITIES: 2+ edema. PERIPHERAL PULSES: equal. NEUROLOGIC: No gross deficits, AAO X 3 Objective Labs and Meds 03/10/23 04:22 03/10/23 04:22 Lab results: Laboratory Results - last 24 hr 03/07/23 03/09/23 03/09/23 13:39 16:18 19:50 WBC RBC Hgb Hct MCV MCH MCHC RDW Plt Count MPV Absolute Nucleated RBC Nucleated RBC % (auto) Sodium Potassium Chloride Carbon Dioxide Anion Gap BUN Creatinine Estim Creat Clear Calc Estimated GFR POC Glucose 186 H 201 H Random Glucose Calcium Troponin I High Sens 8003.9 H* D B-Natriuretic Peptide 03/09/23 03/10/23 03/10/23 20:02 04:22 04:22 WBC 10.5 RBC 2.37 L Hgb 7.1 L Hct 21.2 L MCV 89.5 MCH 30.0 MCHC 33.5 RDW 15.2 Plt Count 207 MPV 10.6 Absolute Nucleated RBC 0.000 Nucleated RBC % (auto) 0.0 Sodium 133 L 135 Potassium 4.0 4.1 Chloride 99 100 Carbon Dioxide 20 L 19 L Anion Gap 18 20 BUN 118 H 117 H Creatinine 3.34 H 3.29 H Estim Creat Clear Calc 15.6 15.9 Estimated GFR 13 13 POC Glucose Random Glucose 224 H 120 H Calcium 9.3 9.3 Troponin I High Sens B-Natriuretic Peptide 03/10/23 03/10/23 04:22 04:22 WBC RBC Hgb Hct MCV MCH MCHC RDW Plt Count MPV Absolute Nucleated RBC Nucleated RBC % (auto) Sodium Potassium Chloride Carbon Dioxide Anion Gap BUN Creatinine Estim Creat Clear Calc Estimated GFR POC Glucose Random Glucose Calcium Troponin I High Sens B-Natriuretic Peptide Cancelled 2377 H Imaging Radiologist's impression: Impressions Chest X-Ray 03/10/23 03:50 IMPRESSION: Prominent central vasculature and surrounding interstitium, suspicious for vascular congestion and edema. Bibasilar opacities, slightly worsened on the right compared to prior, along with small pleural effusions. Progress Note: A&P Assessment and plan (1) CHF (congestive heart failure): Status: Acute Plan 82-year-old female with cardiomyopathy and congestive heart failure along with chronic kidney disease. She is anemic and has elevated creatinine of 3.27 be BUN of 117. Is not encephalopathic. She has refused hemodialysis. She was started on Bumex drip with a negative balance of 415 mL. Decrease the carvedilol to 6.25 mg twice a day. Increase the hydralazine to 25 mg 3 times a day. Continue Isordil at the same dose. By cutting back on carvedilol probably we can increase forward flow and improved blood pressure and use that to titrate hydralazine. Continue metolazone along with Bumex and monitor electrolytes closely. She is anemic but cannot be transfused because she may not be able to tolerate it due to significant volume overload. We will follow along with you. Thank you for allowing me to participate in the care of your patient. Please feel free to contact me if you have any questions. Time Spent With Patient Time: Total time managing care of this patient today ____ minutes. Progress Note: Quality Stroke Does the patient have a stroke diagnosis?: No Procedures Date of Service Date of Service: 03/10/23
[2023-03-10] MEDS: Lactulose 20 GM/30 ML SOLUTION PO ×2 (11:57→23:11)
[2023-03-10] MEDS: metOLazone 5 MG TABLET 10 MG PO (11:57)
--- NOTE | 2023-03-10 12:34 | PM.CNNEP ---
History of Present Illness Reason for Consult Consult date: 03/10/23 Chief Complaint Chief complaint: SOB History of Present Illness Narrative: 82 years patient with history of severe CKD admitted with decompensated CHF. She is known to have a history of diastolic heart failure and presented with worsening shortness of breath and lower extremity edema. At the time of the consultation she reports improving shortness of breath. There is no report of fever, chills, chest pain, nausea, vomiting or diarrhea. Review of Systems Review of Systems 10 points ROS negative except for pertinent in HPI PMFSH Past Medical History Medical History Abscess of forearm, right Acute on chronic diastolic heart failure Acute respiratory failure with hypoxia Anemia B12 deficiency Chronic renal insufficiency CKD (chronic kidney disease) Congestive heart failure Diabetes Femoral artery stenosis Gram-positive bacteremia High cholesterol Hypertension Hypoxia Lower extremity edema Psoriasis of scalp PVD (peripheral vascular disease) Family History Family History Father No problems noted. Mother No problems noted. Surgical History Surgical History History of female sterilization History of shoulder surgery Social History Social History Household Members: Family Household Members Other:: Daughter Housing: Intermediate Do you presently have visiting nurse or other home services: Yes Alcohol intake: never Patient Tobacco Use Status: Never used Tobacco e-Cigarette/Vaping Use: Never Used Second Hand Smoke Exposure: No Advance Directives Date on File: 04/18/21 service: No Current occupational status: retired and disabled Cognitive needs: Yes Hearing needs: No Vision needs: No Meds Allergies Allergy/AdvReac Type Severity Reaction Status Date / Time Iodinated Contrast Media Allergy Unknown UNKNOWN Verified 08/13/22 16:05 [IODINATED CONTRAST MEDIA] Active Medications: Current Medications Acetaminophen (Acetaminophen 325 Mg Tablet) 650 mg PO Q6H PRN PRN Reason: Pain, Mild (Pain Scale 1-3) Last Admin: 03/09/23 09:36 Dose: 650 mg Albuterol/Ipratropium (Albuterol/Iprat 2.5/0.5mg 3 Ml Ampul.Neb) 3 ml INHALE RQ4H PRN PRN Reason: Shortness of Breath/Wheezing Amlodipine Besylate (Amlodipine Besylate 10 Mg Tablet) 10 mg PO DAILY [facility]; Protocol Last Admin: 03/10/23 08:56 Dose: 10 mg Aspirin (Aspirin Enteric Coated 81 Mg Tablet.Dr) 81 mg PO DAILY [facility] Last Admin: 03/10/23 08:56 Dose: 81 mg Atorvastatin Calcium (Atorvastatin Calcium 80 Mg Tablet) 80 mg PO BEDTIME [facility] Last Admin: 03/09/23 21:15 Dose: 80 mg Bisacodyl (Bisacodyl 10 Mg Supp.Rect) 10 mg MI DAILY PRN PRN Reason: Constipation Carvedilol (Carvedilol 6.25 Mg Tablet) 6.25 mg PO BID [facility]; Protocol Clopidogrel Bisulfate (Clopidogrel Bisulfate 75 Mg Tablet) 75 mg PO DAILY [facility] Last Admin: 03/10/23 08:56 Dose: 75 mg Cyanocobalamin (Cyanocobalamin (Vitamin B-12) 1,000 Mcg Tablet) 1,000 mcg PO BEDTIME [facility] Last Admin: 03/09/23 21:15 Dose: 1,000 mcg Hydralazine HCl (Hydralazine Hcl 25 Mg Tablet) 25 mg PO TID [facility]; Protocol Bumetanide 25 mg/ IV (Miscellaneous Supplies) 100 mls @ 2 mls/hr IVCONT .Q24H [facility] Last Admin: 03/09/23 12:18 Dose: 0.5 mg/hr, 2 mls/hr Isosorbide Dinitrate (Isosorbide Dinitrate 5 Mg Tablet) 5 mg PO 0800,1300,1800 [facility]; Protocol Last Admin: 03/10/23 11:57 Dose: 5 mg Lactulose (Lactulose 20 Gm/30 Ml Solution) 20 gm PO BID [facility] Last Admin: 03/10/23 11:57 Dose: 20 gm Morphine Sulfate (Morphine Sulfate Oral Jennifer 10 Mg/5 Ml Solution) 5 mg PO Q4H PRN PRN Reason: Pain (Scale Score 4-6) Multivitamins/Vitamin C (Multivitamin Tablet) 1 tab PO DAILY [facility] Last Admin: 03/10/23 08:56 Dose: 1 tab Nitroglycerin (Nitroglycerin 0.4 Mg Tab.Subl) 0.4 mg SUBLINGUAL Q5MX3 PRN PRN Reason: Chest Pain Ondansetron HCl (Ondansetron Hcl 4 Mg/2 Ml Vial) 4 mg IVPUSH Q8H PRN PRN Reason: Nausea and Vomiting Last Admin: 03/07/23 23:23 Dose: 4 mg Pharmacy Consult (Consult Rx Perform Med Rec) 1 each MISCELLANE ONCE PRN PRN Reason: Consult order Pregabalin (Pregabalin 25 Mg Capsule) 25 mg PO BEDTIME [facility] Last Admin: 03/09/23 21:16 Dose: 25 mg Sodium Biphosphate/Sodium Phosphate (Sodium Phosphate,[place]-Dibasic 133 Ml Enema) 118 ml MI DAILY PRN PRN Reason: Constipation Sodium Chloride (0.9 % Sodium Chloride Flush 3 Ml Syringe) 3 ml IVFLUSH QSHIFT [facility] Last Admin: 03/10/23 08:57 Dose: 3 ml Sodium Zirconium Cyclosilicate (Sodium Zirconium Cyclosilicate 10 Gm Powd.Pack) 10 gm PO DAILY [facility] Last Admin: 03/10/23 08:57 Dose: 10 gm Home Medications Medication Instructions Recorded Confirmed Last Taken Type acetaminophen 325 mg tablet 650 mg PO Q6H PRN Pain 09/10/21 03/07/23 Unknown History amlodipine 10 mg tablet 10 mg PO DAILY 08/17/22 03/07/23 08/16/22 History cyanocobalamin (vitamin B-12) 1,000 mcg PO BEDTIME 08/17/22 03/07/23 08/16/22 History 1,000 mcg tablet (Vitamin B-12) multivitamin with folic acid 400 1 tab PO DAILY 08/17/22 03/07/23 08/16/22 History mcg tablet bisacodyl 10 mg rectal suppository 10 mg MI DAILY PRN Constipation 03/07/23 03/07/23 Unknown History ferrous sulfate 325 mg (65 mg 1 tab PO DAILY 03/07/23 03/07/23 Unknown History iron) tablet (FeroSul) morphine concentrate 100 mg/5 mL 5 mg PO Q4H PRN Pain (Scale Score 03/07/23 03/07/23 Unknown History (20 mg/mL) oral solution 4-6) moxifloxacin 400 mg tablet 400 mg PO DAILY 03/07/23 03/07/23 Unknown History sodium phosphates 19 gram-7 118 ml MI DAILY PRN Constipation 03/07/23 03/07/23 Unknown History gram/118 mL enema (Fleet Enema) sodium zirconium cyclosilicate 10 10 g PO DAILY 03/07/23 03/07/23 Unknown History gram oral powder packet (Lokelma) Physical Exam Vital Signs: Last Vital Signs Temp 96.9 F 03/10/23 11:26 Pulse 65 03/10/23 11:26 Resp 18 03/10/23 11:26 BP 118/59 L 03/10/23 11:26 Pulse Ox 91 L 03/10/23 11:26 O2 Del Method Nasal Cannula 03/10/23 11:26 O2 Flow Rate 5 03/10/23 11:26 Oxygen Flow Rate 6 03/07/23 13:05 BMI result Body Mass Index 34.1 Const General: no acute distress, alert and awake HEENT Head: Yes normocephalic and Yes atraumatic Neck Neck: Yes supple Resp Auscultation: diminished lung sounds Cardio Heart sounds: S1 normal heart sound present and S2 normal heart sound present GI Palpation (GI): Soft to palpation and nontender Extrem General: Yes edema and Yes pedal edema Results Lab Results 03/10/23 04:22 03/10/23 04:22 Lab results: Chemistry 03/07/23 03/08/23 03/09/23 13:39 05:50 05:42 Sodium 135 136 135 Potassium 4.7 4.6 4.4 Carbon Dioxide 18 L 19 L 20 L BUN 116 H 114 H 115 H Creatinine 3.27 H 3.16 H 3.36 H Calcium 9.7 D 9.5 9.4 03/09/23 03/10/23 20:02 04:22 Sodium 133 L 135 Potassium 4.0 4.1 Carbon Dioxide 20 L 19 L BUN 118 H 117 H Creatinine 3.34 H 3.29 H Calcium 9.3 9.3 Hematology 03/07/23 03/08/23 03/09/23 13:39 05:50 05:42 WBC 15.4 H 10.9 H 9.2 Hgb 7.0 L* 7.8 L 7.3 L Plt Count 271 D 241 222 03/10/23 04:22 WBC 10.5 Hgb 7.1 L Plt Count 207 Assessment and Plan (1) CKD (chronic kidney disease) stage 4, GFR 15-29 ml/min: Status: Acute (2) (HFpEF) heart failure with preserved ejection fraction: Status: Acute (3) Metabolic acidosis: Status: Acute (4) Anemia aplastic aregenerative: Status: Acute Plan known severe CKD kidney function at baseline baseline Scr ~ 3 mg/dl h/o diastolic HF volume status above dry weight nephrogenic anemia will need to r/o iron deficiency she will need MOON REC iron profile c/w bumetanide gtt no indication for PORT DRIER strict I/O daily weight follow kidney function and electrolytes Time Spent With Patient Time: Total time managing care of this patient today ____ minutes. Procedures Date of Service Date of Service: 03/10/23
--- NOTE | 2023-03-10 13:08 | P.PNIM_ITS ---
Subjective Subjective Date of Service: 03/10/23 Interval History: Seen and evaluated this morning feels partial improvement overall but still complaining of dyspnea BNP stays around 2300 but still significantly edematous Not making much of urine no other overnight events Review of Systems No fever, chills but has weakness No chest pain, palpitation reporting shortness of breath and coughing with blood streaks No abdominal pain, nausea or vomiting No urinary symptoms No any rash or wounds Physical Exam Vital Signs: Vital Signs: Last Vital Signs Temp 96.9 F 03/10/23 11:26 Pulse 65 03/10/23 11:26 Resp 18 03/10/23 11:26 BP 118/59 L 03/10/23 11:26 Pulse Ox 91 L 03/10/23 11:26 O2 Del Method Nasal Cannula 03/10/23 11:26 O2 Flow Rate 5 03/10/23 11:26 Oxygen Flow Rate 6 03/07/23 13:05 BMI result Body Mass Index 34.1 Const: Other: Constitutional : Awake, interactive, not in distress Neck : Normal inspection, Supple Cardiovascular : RRR, elevated JVP, +2 lower extremity edema Respiratory : fair bilateral air entry, basal bilateral crackles, no wheezes Gastrointestinal: soft, lax, Normal bowel sounds, Non tender Skin : Warm, Dry Neurological : Alert & oriented x3, No focal deficit Objective Data Active Medications Acetaminophen (Acetaminophen 325 Mg Tablet) 650 mg PO Q6H PRN PRN Reason: Pain, Mild (Pain Scale 1-3) Last Admin: 03/09/23 09:36 Dose: 650 mg Documented By: ANTOLIN Albuterol/Ipratropium (Albuterol/Iprat 2.5/0.5mg 3 Ml Ampul.Neb) 3 ml INHALE RQ4H PRN PRN Reason: Shortness of Breath/Wheezing Amlodipine Besylate (Amlodipine Besylate 10 Mg Tablet) 10 mg PO DAILY [facility]; Protocol Last Admin: 03/10/23 08:56 Dose: 10 mg Documented By: ANTOLIN Aspirin (Aspirin Enteric Coated 81 Mg Tablet.) 81 mg PO DAILY [facility] Last Admin: 03/10/23 08:56 Dose: 81 mg Documented By: ANTOILN Atorvastatin Calcium (Atorvastatin Calcium 80 Mg Tablet) 80 mg PO BEDTIME [facility] Last Admin: 03/09/23 21:15 Dose: 80 mg Documented By: ABDELRAHMAN Bisacodyl (Bisacodyl 10 Mg Supp.Rect) 10 mg ME DAILY PRN PRN Reason: Constipation Carvedilol (Carvedilol 6.25 Mg Tablet) 6.25 mg PO BID [facility]; Protocol Clopidogrel Bisulfate (Clopidogrel Bisulfate 75 Mg Tablet) 75 mg PO DAILY [facility] Last Admin: 03/10/23 08:56 Dose: 75 mg Documented By: ANTOLIN Cyanocobalamin (Cyanocobalamin (Vitamin B-12) 1,000 Mcg Tablet) 1,000 mcg PO BEDTIME [facility] Last Admin: 03/09/23 21:15 Dose: 1,000 mcg Documented By: ABDELRAHMAN Hydralazine HCl (Hydralazine Hcl 25 Mg Tablet) 25 mg PO TID [facility]; Protocol Bumetanide 25 mg/ IV (Miscellaneous Supplies) 100 mls @ 2 mls/hr IVCONT .Q24H [facility] Last Admin: 03/09/23 12:18 Dose: 0.5 mg/hr, 2 mls/hr Documented By: ANTOLIN Isosorbide Dinitrate (Isosorbide Dinitrate 5 Mg Tablet) 5 mg PO 0800,1300,1800 [facility]; Protocol Last Admin: 03/10/23 11:57 Dose: 5 mg Documented By: ANTOLIN Lactulose (Lactulose 20 Gm/30 Ml Solution) 20 gm PO BID [facility] Last Admin: 03/10/23 11:57 Dose: 20 gm Documented By: ANTOLIN Morphine Sulfate (Morphine Sulfate Oral Jennifer 10 Mg/5 Ml Solution) 5 mg PO Q4H PRN PRN Reason: Pain (Scale Score 4-6) Multivitamins/Vitamin C (Multivitamin Tablet) 1 tab PO DAILY [facility] Last Admin: 03/10/23 08:56 Dose: 1 tab Documented By: ANTOLIN Nitroglycerin (Nitroglycerin 0.4 Mg Tab.Subl) 0.4 mg SUBLINGUAL Q5MX3 PRN PRN Reason: Chest Pain Ondansetron HCl (Ondansetron Hcl 4 Mg/2 Ml Vial) 4 mg IVPUSH Q8H PRN PRN Reason: Nausea and Vomiting Last Admin: 03/07/23 23:23 Dose: 4 mg Documented By: ANNA Pharmacy Consult (Consult Rx Perform Med Rec) 1 each MISCELLANE ONCE PRN PRN Reason: Consult order Pregabalin (Pregabalin 25 Mg Capsule) 25 mg PO BEDTIME [facility] Last Admin: 03/09/23 21:16 Dose: 25 mg Documented By: ABDELRAHMAN Sodium Biphosphate/Sodium Phosphate (Sodium Phosphate,[place]-Dibasic 133 Ml Enema) 118 ml ME DAILY PRN PRN Reason: Constipation Sodium Chloride (0.9 % Sodium Chloride Flush 3 Ml Syringe) 3 ml IVFLUSH QSHIFT [facility] Last Admin: 03/10/23 08:57 Dose: 3 ml Documented By: ANTOLIN Sodium Zirconium Cyclosilicate (Sodium Zirconium Cyclosilicate 10 Gm Powd.Pack) 10 gm PO DAILY [facility] Last Admin: 03/10/23 08:57 Dose: 10 gm Documented By: ANTOLIN Labs 03/10/23 04:22 03/10/23 04:22 Labs: Laboratory Results - last 24 hr 03/07/23 03/09/23 03/09/23 13:39 16:18 19:50 MCV MCH MCHC RDW Plt Count MPV Absolute Nucleated RBC Nucleated RBC % (auto) Anion Gap Estim Creat Clear Calc Estimated GFR POC Glucose 186 H 201 H Random Glucose Calcium Troponin I High Sens 8003.9 H* D B-Natriuretic Peptide 03/09/23 03/10/23 03/10/23 20:02 04:22 04:22 MCV 89.5 MCH 30.0 MCHC 33.5 RDW 15.2 Plt Count 207 MPV 10.6 Absolute Nucleated RBC 0.000 Nucleated RBC % (auto) 0.0 Anion Gap 18 20 Estim Creat Clear Calc 15.6 15.9 Estimated GFR 13 13 POC Glucose Random Glucose 224 H 120 H Calcium 9.3 9.3 Troponin I High Sens B-Natriuretic Peptide 03/10/23 03/10/23 04:22 04:22 MCV MCH MCHC RDW Plt Count MPV Absolute Nucleated RBC Nucleated RBC % (auto) Anion Gap Estim Creat Clear Calc Estimated GFR POC Glucose Random Glucose Calcium Troponin I High Sens B-Natriuretic Peptide Cancelled 2377 H Assessment and Plan (1) Anemia aplastic aregenerative: Status: Acute (2) (HFpEF) heart failure with preserved ejection fraction: Status: Acute (3) Metabolic acidosis: Status: Acute (4) CKD (chronic kidney disease) stage 4, GFR 15-29 ml/min: Status: Acute (5) CHF (congestive heart failure): Status: Acute Plan An 82 years lady with PMH of dCHF on 2L O2, CKD IV, HTN, HLD, CAD on medical tx who presents with SOB and dyspnea. Acute on chronic hypoxic respiratory failure 2/2 acute diastolic CHF exa cerbation Not making much of urine, no accurate readings BNP down to 2300 Increase IV lasix drip to 20mg\hr Add Metolazone I\O wean O2 down as tolerated Elevated Trop with CAD Finished Lovenox full dose for 48 hours continue ASA, Plavix, increase Statin Isordil tid increase Hydralazine tid to 25mg cut down Carvedilol to 6.25 mg bid Pending cardiology eval Acute on chronic symptomatic anemia Hb down to 7.1 after 1 unit transfusion, to give an extra unit today Occult stool negative check Iron profile Nephrology to follow, might need EPO follow CBC CKD 4 monitor BMP HTN hold Amlodipine DVT PPx Lovenox I had the chance to speak with the HCP of patient about current medical issues. she understands that her mother condition has been deteriorating steadily over the last period of time as he ischemic heart condition not resolved and no plans for interventions. she agreed to change her status to DNR\DNI as patient also made it clear she doesnt want dialysis. 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 Needs inpatient hospital stay for overnight for treatment of hypoxic respiratory failure pending clinical improvement Time Spent With Patient Time: Total time managing care of this patient today ____ minutes. Quality Stroke Does the patient have a stroke diagnosis?: No VTE Prior VTE?: No VTE Risk Level:: Medical - moderate - high VTE Device Contraindication: Treatment Not Indicated VTE Drug Contraindication: N/A - Med Ordered
[2023-03-10 13:47] LABS: Iron 33 mcg/dL (30-160); Percent Iron Saturation 23 % (15-50); Total Iron Binding Capacity 146 mcg/dL (228-428); Unsaturated Iron Binding 113 ug/dL
--- NOTE | 2023-03-10 15:10 | MHC.CM.PN ---
EMR reviewed and per MD rounds, pt is not medically cleared for D/C, is on a bumex drip. Pt remains a bed hold at [facility]. HCP updated today to add pts other daughter as alternate HCP. CM will continue to follow.
--- NOTE | 2023-03-10 16:26 | P.CDIM_ITS ---
PROVIDER RESPONSE TEXT: To clarify, the appropriate diagnosis supported by the clinical indicators: Other (explain): anemia of advanced CKD QUERY TEXT: PHYSICIAN'S DOCUMENTATION REQUEST Date of Query: 03/10/2023 09:05 AM EDT Patient Name: Kay Cuadra Admit Date: 03/07/2023 Dear Elisabet Campo, A review of the medical record indicates additional documentation may be needed. Please review below and update the documentation accordingly. Clinical Indicators: Acute on chronic symptomatic anemia HGB 7.0 HCT 21.5 transfuse 1 unit PRBC/short of breath Surgery - I AND D - blade 11 carried down through full thickness of skin an subcutaneous fat, debride d, open wound, dressing. Based on the above, could you clarify which of the following is the most likely type of anemia you ar e evaluating, treating, and/or monitoring? Acute blood loss anemia Acute blood loss anemia with baseline chronic anemia (specify type) Other Other (explain)Clinically unable to determine (explain)Thank you, Jeannie Alexis, CCS, CDIS Use of terms such as suspected, likely, concern for, or probable (associated with a specific diagnosi s that is being evaluated, monitored, or treated as if it exists) are acceptable and can be coded in the inpatient se tting, when documented at the time of discharge. Please use your independent medical judgment in providing your response. THIS QUERY IS PART OF THE PERMANENT MEDICAL RECORD
[2023-03-10] MEDS: Bumetanide 25 MG in Container,Empty 0 ML IVCONT (17:54)
[2023-03-10] MEDS: hydrALAZINE HCl 25 MG TABLET PO ×2 (18:00→23:10)
[2023-03-10] MEDS: Atorvastatin Calcium 80 MG TABLET PO (23:10)
[2023-03-10] MEDS: bisacodyL 10 MG SUPP.RECT PR (23:10)
[2023-03-10] MEDS: carvediloL 6.25 MG TABLET PO (23:11)
[2023-03-10] MEDS: Cyanocobalamin (Vitamin B-12) 1,000 MCG TABLET 1000 MCG PO (23:11)
[2023-03-10] MEDS: Pregabalin 25 MG CAPSULE PO (23:11)
[2023-03-10] MEDS: Acetaminophen 325 MG TABLET 650 MG PO (23:12)
[2023-03-11] VITALS: BP 145/68; PULSE 68; RESP 20; TEMP 36.7; O2SAT 95
[2023-03-11 04:00] VITALS: BP 144/60; PULSE 69; RESP 20; TEMP 36.6; O2SAT 95
[2023-03-11 06:57] LABS: Hematocrit 23.3 % (37.0-47.0); Hemoglobin 7.8 g/dl (12.0-16.0); Mean Corpuscular HGB Conc 33.5 g/dl (31.0-35.0); Mean Corpuscular Hemoglobin 29.8 pg (27.0-33.0); Mean Corpuscular Volume 88.9 fL (80.0-98.0); Mean Platelet Volume 11.2 fL (9.4-12.3); Platelet Count 210 X10*3/uL (160-400); Red Blood Count 2.62 X10*6/uL (4.20-5.50); Red Cell Distribution Width 15.1 % (11.0-16.0)
[2023-03-11 07:06] LABS: Anion Gap 19 (12-20); Blood Urea Nitrogen 118 mg/dL (9-16); Calcium 8.7 mg/dL (8.4-10.2); Carbon Dioxide 19 mmol/L (22-29); Chloride 99 mmol/L (96-108); Creatinine Clr Calc Pharmacy 16.3; Estimated Glomerular Filt Rate 14; Glucose Random 119 mg/dL (60-115); Potassium 3.8 mmol/L (3.3-5.1); Sodium 133 mmol/L (135-145)
[2023-03-11 07:22] LABS: B Type Natriuretic Peptide 2823 pg/mL (<100)
[2023-03-11 08:00] VITALS: BP 142/60; PULSE 64; RESP 20; TEMP 36; O2SAT 97
[2023-03-11] MEDS: Sodium Zirconium Cyclosilicate 10 GM POWD.PACK PO (09:19)
[2023-03-11] MEDS: Clopidogrel Bisulfate 75 MG TABLET PO (09:22)
[2023-03-11] MEDS: Isosorbide Dinitrate 5 MG TABLET PO ×3 (09:22→17:12)
[2023-03-11] MEDS: hydrALAZINE HCl 25 MG TABLET PO (09:22)
[2023-03-11] MEDS: Multivitamin TABLET 1 TAB PO (09:22)
[2023-03-11] MEDS: carvediloL 6.25 MG TABLET PO ×2 (09:23→20:36)
[2023-03-11] MEDS: Aspirin Enteric Coated 81 MG TABLET.DR PO (09:23)
[2023-03-11] MEDS: Heparin Sodium,Porcine 5,000 UNIT/ML VIAL 5000 UNIT SUBCUT ×2 (09:23→17:11)
[2023-03-11] MEDS: amLODIPine Besylate 10 MG TABLET PO (09:23)
[2023-03-11] MEDS: Lactulose 20 GM/30 ML SOLUTION PO ×2 (09:24→20:37)
--- NOTE | 2023-03-11 09:30 | PC.NURSE ---
current bag of bumex ,. change bag by 2100
[2023-03-11 11:29] VITALS: BP 135/60; PULSE 62; RESP 20; TEMP 36.2; O2SAT 94
--- NOTE | 2023-03-11 11:40 | P.PNIM_ITS ---
Subjective Subjective Date of Service: 03/11/23 Interval History: feeling lousy Physical Exam Vital Signs: Vital Signs: Last Vital Signs Temp 97.1 F 03/11/23 11:29 Pulse 62 03/11/23 11:29 Resp 20 03/11/23 11:29 BP 135/60 03/11/23 11:29 Pulse Ox 94 03/11/23 11:29 O2 Del Method Nasal Cannula 03/11/23 11:29 O2 Flow Rate 5 03/11/23 11:29 Oxygen Flow Rate 6 03/07/23 13:05 BMI result Body Mass Index 34.1 Const: Other: Constitutional : Awake, interactive, not in distress Neck : Normal inspection, Supple Cardiovascular : RRR, elevated JVP, +2 lower extremity edema Respiratory : fair bilateral air entry, basal bilateral crackles, no wheezes Gastrointestinal: soft, lax, Normal bowel sounds, Non tender Skin : Warm, Dry Neurological : Alert & oriented x3, No focal deficit Objective Data Active Medications Acetaminophen (Acetaminophen 325 Mg Tablet) 650 mg PO Q6H PRN PRN Reason: Pain, Mild (Pain Scale 1-3) Last Admin: 03/10/23 23:12 Dose: 650 mg Documented By: SALVATORE Albuterol/Ipratropium (Albuterol/Iprat 2.5/0.5mg 3 Ml Ampul.Neb) 3 ml INHALE RQ4H PRN PRN Reason: Shortness of Breath/Wheezing Amlodipine Besylate (Amlodipine Besylate 10 Mg Tablet) 10 mg PO DAILY [facility]; Protocol Last Admin: 03/11/23 09:23 Dose: 10 mg Documented By: ANTOLIN Aspirin (Aspirin Enteric Coated 81 Mg Tablet.Dr) 81 mg PO DAILY [facility] Last Admin: 03/11/23 09:23 Dose: 81 mg Documented By: ANTOLIN Atorvastatin Calcium (Atorvastatin Calcium 80 Mg Tablet) 80 mg PO BEDTIME [facility] Last Admin: 03/10/23 23:10 Dose: 80 mg Documented By: SALVATORE Bisacodyl (Bisacodyl 10 Mg Supp.Rect) 10 mg IN DAILY PRN PRN Reason: Constipation Last Admin: 03/10/23 23:10 Dose: 10 mg Documented By: SALVATORE Carvedilol (Carvedilol 6.25 Mg Tablet) 6.25 mg PO BID [facility]; Protocol Last Admin: 03/11/23 09:23 Dose: 6.25 mg Documented By: ANTOLIN Clopidogrel Bisulfate (Clopidogrel Bisulfate 75 Mg Tablet) 75 mg PO DAILY [facility] Last Admin: 03/11/23 09:22 Dose: 75 mg Documented By: ANTOLIN Cyanocobalamin (Cyanocobalamin (Vitamin B-12) 1,000 Mcg Tablet) 1,000 mcg PO BEDTIME [facility] Last Admin: 03/10/23 23:11 Dose: 1,000 mcg Documented By: SALVATORE Heparin Sodium (Porcine) (Heparin Sodium,Porcine 5,000 Unit/Ml Vial) 5,000 unit SUBCUT Q8H [facility] Last Admin: 03/11/23 09:23 Dose: 5,000 unit Documented By: ANTOLIN Bumetanide 25 mg/ IV (Miscellaneous Supplies) 100 mls @ 2 mls/hr IVCONT .Q24H [facility] Last Admin: 03/10/23 23:15 Dose: Not Given Documented By: SALVATORE Non-Admin Reason: full bag hanging. Isosorbide Dinitrate (Isosorbide Dinitrate 5 Mg Tablet) 5 mg PO 0800,1300,1800 [facility]; Protocol Last Admin: 03/11/23 09:22 Dose: 5 mg Documented By: ANTOLIN Lactulose (Lactulose 20 Gm/30 Ml Solution) 20 gm PO BID [facility] Last Admin: 03/11/23 09:24 Dose: 20 gm Documented By: ANTOLIN Morphine Sulfate (Morphine Sulfate Oral Jennifer 10 Mg/5 Ml Solution) 5 mg PO Q4H PRN PRN Reason: Pain (Scale Score 4-6) Multivitamins/Vitamin C (Multivitamin Tablet) 1 tab PO DAILY [facility] Last Admin: 03/11/23 09:22 Dose: 1 tab Documented By: ANTOLIN Nitroglycerin (Nitroglycerin 0.4 Mg Tab.Subl) 0.4 mg SUBLINGUAL Q5MX3 PRN PRN Reason: Chest Pain Ondansetron HCl (Ondansetron Hcl 4 Mg/2 Ml Vial) 4 mg IVPUSH Q8H PRN PRN Reason: Nausea and Vomiting Last Admin: 03/07/23 23:23 Dose: 4 mg Documented By: ANNA Pharmacy Consult (Consult Rx Perform Med Rec) 1 each MISCELLANE ONCE PRN PRN Reason: Consult order Pregabalin (Pregabalin 25 Mg Capsule) 25 mg PO BEDTIME [facility] Last Admin: 03/10/23 23:11 Dose: 25 mg Documented By: SALVATORE Sodium Biphosphate/Sodium Phosphate (Sodium Phosphate,[place]-Dibasic 133 Ml Enema) 118 ml IN DAILY PRN PRN Reason: Constipation Sodium Chloride (0.9 % Sodium Chloride Flush 3 Ml Syringe) 3 ml IVFLUSH QSHIFT [facility] Last Admin: 03/11/23 09:35 Dose: Not Given Documented By: ANTOLIN Non-Admin Reason: IV Running Sodium Zirconium Cyclosilicate (Sodium Zirconium Cyclosilicate 10 Gm Powd.Pack) 10 gm PO DAILY [facility] Last Admin: 03/11/23 09:19 Dose: 10 gm Documented By: ANTOLIN Labs 03/11/23 06:30 03/11/23 06:30 Labs: Laboratory Results - last 24 hr 03/07/23 03/10/23 03/11/23 18:02 13:15 06:30 MCV 88.9 MCH 29.8 MCHC 33.5 RDW 15.1 Plt Count 210 MPV 11.2 Absolute Nucleated RBC 0.000 Nucleated RBC % (auto) 0.0 Anion Gap Estim Creat Clear Calc Estimated GFR Random Glucose Calcium Iron 33 TIBC 146 L % Saturation 23 Unsat Iron Binding 113 B-Natriuretic Peptide Blood Type A Positive Antibody Screen NEGATIVE Crossmatch See Detail 03/11/23 03/11/23 06:30 06:30 MCV MCH MCHC RDW Plt Count MPV Absolute Nucleated RBC Nucleated RBC % (auto) Anion Gap 19 Estim Creat Clear Calc 16.3 Estimated GFR 14 Random Glucose 119 H Calcium 8.7 D Iron TIBC % Saturation Unsat Iron Binding B-Natriuretic Peptide 2823 H Blood Type Antibody Screen Crossmatch Assessment and Plan (1) Anemia aplastic aregenerative: Status: Acute (2) (HFpEF) heart failure with preserved ejection fraction: Status: Acute (3) Metabolic acidosis: Status: Acute (4) CKD (chronic kidney disease) stage 4, GFR 15-29 ml/min: Status: Acute (5) CHF (congestive heart failure): Status: Acute Plan 82F PMH of dCHF on 2L O2, CKD IV, HTN, HLD, CAD on medical tx who presented with SOB and dyspnea. Acute on chronic hypoxic respiratory failure 2/2 acute on chronic diastolic CHF exacerbation changed to bumex drip wean O2 down as tolerated Elevated Trop with CAD Finished Lovenox full dose for 48 hours continue ASA, Plavix, Statin Isordil tid increased Hydralazine tid to 25mg cut down Carvedilol to 6.25 mg bid Acute on chronic symptomatic anemia s/p 2 units prbc CKD 4 monitor BMP HTN hold Amlodipine DVT PPx Lovenox reason for continued hospitalization:hypoxia, iv diuresis Time Spent With Patient Time: Total time managing care of this patient today ____ minutes. Quality Stroke Does the patient have a stroke diagnosis?: No VTE Prior VTE?: No VTE Risk Level:: Medical - moderate - high VTE Device Contraindication: Treatment Not Indicated VTE Drug Contraindication: N/A - Med Ordered
--- NOTE | 2023-03-11 11:42 | P.PNNP_ITS ---
Subjective Subjective Date of Service: 03/11/23 Principal diagnosis: Congestive heart failure and acute [place] Interval history: seen and evaluated feels better still complains of dyspnea Physical Exam Vital Signs: Vital Signs: Last Vital Signs Temp 97.1 F 03/11/23 11:29 Pulse 62 03/11/23 11:29 Resp 20 03/11/23 11:29 BP 135/60 03/11/23 11:29 Pulse Ox 94 03/11/23 11:29 O2 Del Method Nasal Cannula 03/11/23 11:29 O2 Flow Rate 5 03/11/23 11:29 Oxygen Flow Rate 6 03/07/23 13:05 BMI result Body Mass Index 34.1 Const: General: no acute distress, alert and awake HEENT: Head: Yes normocephalic and Yes atraumatic Neck: Neck: Yes supple Resp: Auscultation: diminished lung sounds Cardio: Heart sounds: S1 normal heart sound present and S2 normal heart sound present GI: Palpation (GI): Soft to palpation and nontender Extrem: General: Yes edema and Yes pedal edema Objective Data Labs 03/11/23 06:30 03/11/23 06:30 Labs: Laboratory Results - last 24 hr 03/07/23 03/10/23 03/11/23 18:02 13:15 06:30 WBC 8.0 RBC 2.62 L Hgb 7.8 L Hct 23.3 L MCV 88.9 MCH 29.8 MCHC 33.5 RDW 15.1 Plt Count 210 MPV 11.2 Absolute Nucleated RBC 0.000 Nucleated RBC % (auto) 0.0 Sodium Potassium Chloride Carbon Dioxide Anion Gap BUN Creatinine Estim Creat Clear Calc Estimated GFR Random Glucose Calcium Iron 33 TIBC 146 L % Saturation 23 Unsat Iron Binding 113 B-Natriuretic Peptide Blood Type A Positive Antibody Screen NEGATIVE Crossmatch See Detail 03/11/23 03/11/23 06:30 06:30 WBC RBC Hgb Hct MCV MCH MCHC RDW Plt Count MPV Absolute Nucleated RBC Nucleated RBC % (auto) Sodium 133 L Potassium 3.8 Chloride 99 Carbon Dioxide 19 L Anion Gap 19 BUN 118 H Creatinine 3.21 H Estim Creat Clear Calc 16.3 Estimated GFR 14 Random Glucose 119 H Calcium 8.7 D Iron TIBC % Saturation Unsat Iron Binding B-Natriuretic Peptide 2823 H Blood Type Antibody Screen Crossmatch Procedures Date of Service Date of Service: 03/11/23 Assessment & Plan Assessment and plan (1) CKD (chronic kidney disease) stage 4, GFR 15-29 ml/min: Status: Acute (2) (HFpEF) heart failure with preserved ejection fraction: Status: Acute (3) Metabolic acidosis: Status: Acute (4) Anemia aplastic aregenerative: Status: Acute Plan known severe CKD kidney function at baseline baseline Scr ~ 3 mg/dl h/o diastolic HF volume status above dry weight nephrogenic anemia iron profile acceptable she will need MOON o/p REC c/w bumetanide gtt 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 Progress Note: Quality Stroke Does the patient have a stroke diagnosis?: No
[2023-03-11] MEDS: hydrALAZINE HCl 50 MG TABLET PO ×2 (14:11→20:36)
--- NOTE | 2023-03-11 14:30 | PM.PNCARD ---
Subjective Subjective Date of Service: 03/11/23 Principal diagnosis: Congestive heart failure and acute [place] Interval history: Patient seen examined at bedside with president and chief commercial officer. She is denying any active issues currently. She is saying her breathing is stable. Physical Exam Vital Signs: Last Vital Signs Temp 97.1 F 03/11/23 11:29 Pulse 62 03/11/23 11:29 Resp 20 03/11/23 11:29 BP 135/60 03/11/23 11:29 Pulse Ox 94 03/11/23 11:29 O2 Del Method Nasal Cannula 03/11/23 11:29 O2 Flow Rate 5 03/11/23 11:29 Oxygen Flow Rate 6 03/07/23 13:05 BMI result Body Mass Index 34.1 GENERAL APPEARANCE: in no acute distress, on supplemental oxygen. NECK: no carotid bruit, + jugular venous distention. SKIN: no suspicious lesions, warm and dry. HEART: no murmurs, regular rate and rhythm. LUNGS: Crackles at bases. ABDOMEN: soft, nontender. EXTREMITIES: 2+ edema. PERIPHERAL PULSES: equal. NEUROLOGIC: No gross deficits, AAO X 3 Objective Labs and Meds 03/11/23 06:30 03/11/23 06:30 Lab results: Laboratory Results - last 24 hr 03/07/23 03/11/23 03/11/23 18:02 06:30 06:30 WBC 8.0 RBC 2.62 L Hgb 7.8 L Hct 23.3 L MCV 88.9 MCH 29.8 MCHC 33.5 RDW 15.1 Plt Count 210 MPV 11.2 Absolute Nucleated RBC 0.000 Nucleated RBC % (auto) 0.0 Sodium 133 L Potassium 3.8 Chloride 99 Carbon Dioxide 19 L Anion Gap 19 BUN 118 H Creatinine 3.21 H Estim Creat Clear Calc 16.3 Estimated GFR 14 Random Glucose 119 H Calcium 8.7 D B-Natriuretic Peptide Blood Type A Positive Antibody Screen NEGATIVE Crossmatch See Detail 03/11/23 06:30 WBC RBC Hgb Hct MCV MCH MCHC RDW Plt Count MPV Absolute Nucleated RBC Nucleated RBC % (auto) Sodium Potassium Chloride Carbon Dioxide Anion Gap BUN Creatinine Estim Creat Clear Calc Estimated GFR Random Glucose Calcium B-Natriuretic Peptide 2823 H Blood Type Antibody Screen Crossmatch Progress Note: A&P Assessment and plan (1) CHF (congestive heart failure): Status: Acute (2) Anemia: Status: Acute (3) CKD (chronic kidney disease): Status: Acute Plan 82-year-old female with advanced kidney issues, anemia and congestive heart failure. She has refused dialysis. She was started on Bumex drip with some improvement in urine output. Her carvedilol to come dose was decreased and I think carvedilol can be decreased further the 3.125 mg twice a day. I have increased her hydralazine to 50 mg 3 times a day. If her blood pressure does not tolerate this then I think amlodipine should be cut to 5 mg and the blood pressure should be used to titrate hydralazine and nitrates. Due to advanced kidney issues she cannot get Chan inhibitor or ARB right now. She is anemic but cannot get transfusion because she may not be able to tolerate it due to her current volume status. Consider increasing Bumex dose. Continue to dose metolazone 10 mg every other day. Situation is challenging because she has advanced kidney trouble and not agreeable for dialysis. With medication adjustment there is some improvement in her symptoms status. Hopefully we can bring her to a point where she can be changed to oral medications and can be discharged. Will follow along with you. Thank you for allowing me to participate in the care of your patient. Please feel free to contact me if you have any questions. Time Spent With Patient Time: Total time managing care of this patient today ____ minutes. Progress Note: Quality Stroke Does the patient have a stroke diagnosis?: No Procedures Date of Service Date of Service: 03/11/23
[2023-03-11 15:11] VITALS: BP 125/59; PULSE 66; RESP 20; TEMP 36.7; O2SAT 96
[2023-03-11] MEDS: Acetaminophen 325 MG TABLET 650 MG PO (17:10)
[2023-03-11] MEDS: 0.9 % Sodium Chloride Flush 3 ML SYRINGE IVFLUSH ×2 (17:11→20:37)
[2023-03-11] MEDS: metOLazone 5 MG TABLET 10 MG PO (17:11)
[2023-03-11] MEDS: Bumetanide 1 MG/4 ML VIAL 2 MG IVPUSH (17:11)
[2023-03-11 19:02] VITALS: BP 141/53; PULSE 65; RESP 20; TEMP 36.1; O2SAT 99
[2023-03-11] MEDS: Atorvastatin Calcium 80 MG TABLET PO (20:36)
[2023-03-11] MEDS: Cyanocobalamin (Vitamin B-12) 1,000 MCG TABLET 1000 MCG PO (20:36)
[2023-03-11] MEDS: Bumetanide 25 MG in Container,Empty 0 ML 4 MG IVCONT (20:36)
[2023-03-11] MEDS: Pregabalin 25 MG CAPSULE PO (20:36)
[2023-03-12] VITALS (7 sets, daily range): BP systolic 128–164; BP diastolic 41–83; PULSE 63–96; RESP 18–22; TEMP 35.8–36.7; O2SAT 93–99
[2023-03-12] MEDS: Heparin Sodium,Porcine 5,000 UNIT/ML VIAL 5000 UNIT SUBCUT ×3 (00:33→15:50)
[2023-03-12 06:21] LABS: Hematocrit 23.9 % (37.0-47.0); Hemoglobin 8.1 g/dl (12.0-16.0); Mean Corpuscular HGB Conc 33.9 g/dl (31.0-35.0); Mean Corpuscular Hemoglobin 30.3 pg (27.0-33.0); Mean Corpuscular Volume 89.5 fL (80.0-98.0); Mean Platelet Volume 11.3 fL (9.4-12.3); Platelet Count 217 X10*3/uL (160-400); Red Blood Count 2.67 X10*6/uL (4.20-5.50); Red Cell Distribution Width 14.9 % (11.0-16.0); White Blood Count 9.2 X10*3/uL (4.8-10.8)
[2023-03-12 06:40] LABS: Anion Gap 19 (12-20); Blood Urea Nitrogen 118 mg/dL (9-16); Calcium 9.1 mg/dL (8.4-10.2); Carbon Dioxide 18 mmol/L (22-29); Chloride 97 mmol/L (96-108); Creatinine Clr Calc Pharmacy 17.1; Estimated Glomerular Filt Rate 15; Glucose Fasting 93 mg/dL (60-99); Potassium 3.9 mmol/L (3.3-5.1); Sodium 130 mmol/L (135-145)
[2023-03-12] MEDS: carvediloL 6.25 MG TABLET PO ×2 (08:28→20:15)
[2023-03-12] MEDS: Aspirin Enteric Coated 81 MG TABLET.DR PO (08:28)
[2023-03-12] MEDS: amLODIPine Besylate 10 MG TABLET PO (08:28)
[2023-03-12] MEDS: Isosorbide Dinitrate 5 MG TABLET PO (08:28)
[2023-03-12] MEDS: Clopidogrel Bisulfate 75 MG TABLET PO (08:28)
[2023-03-12] MEDS: Multivitamin TABLET 1 TAB PO (08:28)
[2023-03-12] MEDS: Sodium Zirconium Cyclosilicate 10 GM POWD.PACK PO (08:28)
[2023-03-12] MEDS: hydrALAZINE HCl 50 MG TABLET PO (08:28)
[2023-03-12] MEDS: Lactulose 20 GM/30 ML SOLUTION PO ×2 (08:28→20:28)
[2023-03-12] MEDS: 0.9 % Sodium Chloride Flush 3 ML SYRINGE IVFLUSH (08:29)
--- NOTE | 2023-03-12 08:29 | HO.PM.IMPN ---
Subjective Subjective Date of Service: 03/12/23 Interval History: still with significant edema, sob improving Physical Exam Vital Signs: Vital Signs: Last Vital Signs Temp 97.0 F 03/12/23 07:40 Pulse 68 03/12/23 07:40 Resp 18 03/12/23 07:40 BP 164/83 H 03/12/23 07:40 Pulse Ox 99 03/12/23 07:40 O2 Del Method Nasal Cannula 03/12/23 07:40 O2 Flow Rate 3 03/12/23 07:40 BMI result GENERAL APPEARANCE: in no acute distress, on supplemental oxygen. NECK: no carotid bruit, + jugular venous distention. SKIN: no suspicious lesions, warm and dry. HEART: no murmurs, regular rate and rhythm. LUNGS: Crackles at bases. ABDOMEN: soft, nontender. EXTREMITIES: 2+ edema. PERIPHERAL PULSES: equal. NEUROLOGIC: No gross deficits, AAO X 3 Objective Data Active Medications Acetaminophen (Acetaminophen 325 Mg Tablet) 650 mg PO Q6H PRN PRN Reason: Pain, Mild (Pain Scale 1-3) Last Admin: 03/11/23 17:10 Dose: 650 mg Documented By: ANTOLIN Albuterol/Ipratropium (Albuterol/Iprat 2.5/0.5mg 3 Ml Ampul.Neb) 3 ml INHALE RQ4H PRN PRN Reason: Shortness of Breath/Wheezing Amlodipine Besylate (Amlodipine Besylate 10 Mg Tablet) 10 mg PO DAILY [facility], [facility]; Protocol Last Admin: 03/11/23 09:23 Dose: 10 mg Documented By: ANTOLIN Aspirin (Aspirin Enteric Coated 81 Mg Tablet.Dr) 81 mg PO DAILY [facility] Last Admin: 03/11/23 09:23 Dose: 81 mg Documented By: ANTOLIN Atorvastatin Calcium (Atorvastatin Calcium 80 Mg Tablet) 80 mg PO BEDTIME [facility] Last Admin: 03/11/23 20:36 Dose: 80 mg Documented By: JESSIE Bisacodyl (Bisacodyl 10 Mg Supp.Rect) 10 mg OR DAILY PRN PRN Reason: Constipation Last Admin: 03/10/23 23:10 Dose: 10 mg Documented By: SALVATORE Carvedilol (Carvedilol 6.25 Mg Tablet) 6.25 mg PO BID [facility], [facility]; Protocol Last Admin: 03/11/23 20:36 Dose: 6.25 mg Documented By: JESSIE Clopidogrel Bisulfate (Clopidogrel Bisulfate 75 Mg Tablet) 75 mg PO DAILY [facility] Last Admin: 03/11/23 09:22 Dose: 75 mg Documented By: ANTOLIN Cyanocobalamin (Cyanocobalamin (Vitamin B-12) 1,000 Mcg Tablet) 1,000 mcg PO BEDTIME [facility] Last Admin: 03/11/23 20:36 Dose: 1,000 mcg Documented By: JESSIE Heparin Sodium (Porcine) (Heparin Sodium,Porcine 5,000 Unit/Ml Vial) 5,000 unit SUBCUT Q8H [facility] Last Admin: 03/12/23 00:33 Dose: 5,000 unit Documented By: JESSIE Hydralazine HCl (Hydralazine Hcl 50 Mg Tablet) 50 mg PO TID [facility]; Protocol Last Admin: 03/11/23 20:36 Dose: 50 mg Documented By: JESSIE Bumetanide 25 mg/ IV (Miscellaneous Supplies) 100 mls @ 4 mls/hr IVCONT .Q24H [facility] Last Admin: 03/11/23 20:36 Dose: 1 mg/hr, 4 mls/hr Documented By: JESSIE Isosorbide Dinitrate (Isosorbide Dinitrate 5 Mg Tablet) 5 mg PO 0800,1300,1800 [facility]; Protocol Last Admin: 03/11/23 17:12 Dose: 5 mg Documented By: ANTOLIN Lactulose (Lactulose 20 Gm/30 Ml Solution) 20 gm PO BID [facility] Last Admin: 03/11/23 20:37 Dose: 20 gm Documented By: JESSIE Morphine Sulfate (Morphine Sulfate Oral Jennifer 10 Mg/5 Ml Solution) 5 mg PO Q4H PRN PRN Reason: Pain (Scale Score 4-6) Multivitamins/Vitamin C (Multivitamin Tablet) 1 tab PO DAILY [facility] Last Admin: 03/11/23 09:22 Dose: 1 tab Documented By: ANTOLIN Nitroglycerin (Nitroglycerin 0.4 Mg Tab.Subl) 0.4 mg SUBLINGUAL Q5MX3 PRN PRN Reason: Chest Pain Ondansetron HCl (Ondansetron Hcl 4 Mg/2 Ml Vial) 4 mg IVPUSH Q8H PRN PRN Reason: Nausea and Vomiting Last Admin: 03/07/23 23:23 Dose: 4 mg Documented By: ANNA Pharmacy Consult (Consult Rx Perform Med Rec) 1 each MISCELLANE ONCE PRN PRN Reason: Consult order Pregabalin (Pregabalin 25 Mg Capsule) 25 mg PO BEDTIME [facility] Last Admin: 03/11/23 20:36 Dose: 25 mg Documented By: JESSIE Sodium Biphosphate/Sodium Phosphate (Sodium Phosphate,[place]-Dibasic 133 Ml Enema) 118 ml OR DAILY PRN PRN Reason: Constipation Sodium Chloride (0.9 % Sodium Chloride Flush 3 Ml Syringe) 3 ml IVFLUSH QSHIFT [facility] Last Admin: 03/11/23 20:37 Dose: 3 ml Documented By: JESSIE Sodium Zirconium Cyclosilicate (Sodium Zirconium Cyclosilicate 10 Gm Powd.Pack) 10 gm PO DAILY [facility] Last Admin: 03/11/23 09:19 Dose: 10 gm Documented By: ANTOLIN Labs 03/12/23 05:53 03/12/23 05:53 Labs: Laboratory Results - last 24 hr 03/12/23 03/12/23 05:53 05:53 MCV 89.5 MCH 30.3 MCHC 33.9 RDW 14.9 Plt Count 217 MPV 11.3 Absolute Nucleated RBC 0.000 Nucleated RBC % (auto) 0.0 Anion Gap 19 Estim Creat Clear Calc 17.1 Estimated GFR 15 Fasting Glucose 93 Calcium 9.1 Assessment and Plan (1) Anemia aplastic aregenerative: Status: Acute (2) (HFpEF) heart failure with preserved ejection fraction: Status: Acute (3) Metabolic acidosis: Status: Acute (4) CKD (chronic kidney disease) stage 4, GFR 15-29 ml/min: Status: Acute (5) CHF (congestive heart failure): Status: Acute Plan 82F PMH of dCHF on 2L O2, CKD IV, HTN, HLD, CAD on medical tx who presented with SOB and dyspnea. Acute on chronic hypoxic respiratory failure 2/2 acute on chronic diastolic CHF exacerbation changed to bumex drip - increased to 1mg/hr, given 10mg metolazone 03/11/23 wean O2 down as tolerated Elevated Trop with CAD Finished Lovenox full dose for 48 hours continue ASA, Plavix, Statin Isordil tid increased Hydralazine tid to 50mg cut down Carvedilol to 6.25 mg bid Acute on chronic symptomatic anemia s/p 2 units prbc CKD 4 monitor BMP HTN hold Amlodipine DVT PPx Lovenox reason for continued hospitalization:hypoxia, iv diuresis Time Spent With Patient Time: Total time managing care of this patient today ____ minutes. Quality Stroke Does the patient have a stroke diagnosis?: No VTE Prior VTE?: No VTE Risk Level:: Medical - moderate - high VTE Device Contraindication: Treatment Not Indicated VTE Drug Contraindication: N/A - Med Ordered
--- NOTE | 2023-03-12 10:29 | MHC.CM.PN ---
Per ROUNDS discussion, Patient's O2 is still being weaned and Patient is not yet medically cleared for dc. Returning to LT @ [facility] is the goal and CM will continue to follow.
--- NOTE | 2023-03-12 12:06 | P.CDIM_ITS ---
PROVIDER RESPONSE TEXT: To clarify, the appropriate diagnosis supported by the clinical indicators: Myocardial infarction Type 2 QUERY TEXT: PHYSICIAN'S DOCUMENTATION REQUEST Date of Query: 03/12/2023 09:07 AM EDT Patient Name: Kay Cuadra Admit Date: 03/07/2023 Dear Xavier Chaparro, A review of the medical record indicates additional documentation may be needed. Please review below and update the documentation accordingly. Clinical Indicators: Cardiology consultation note 03/10 - Congestive heart failure and Acute [place] Has experienced some mild chest tightness off and on. Bumex drip and supplemental oxygen. LABS: Tropo keri 8003.9 Anemic Decrease the carvedilol to 6.25 twice a day, increase hydralazine to 25 mg 3 times a day. Continue is ordil. Progress notes 03/09 & 03/10: Elevated troponin with CAD Finished lovenox full dose for 48 hours. Nephrology progress note 03/11 - Acute [place] Please clarify the type of the documented myocardial infarction: Myocardial infarction Type 2 Myocardial infarction Type 1 (NSTEMI) Other if known Other (explain)Clinically unable to determine (explain)Thank you, Jeannie Alexis, CCS, CDIS Use of terms such as suspected, likely, concern for, or probable (associated with a specific diagnosi s that is being evaluated, monitored, or treated as if it exists) are acceptable and can be coded in the inpatient se tting, when documented at the time of discharge. Please use your independent medical judgment in providing your response. THIS QUERY IS PART OF THE PERMANENT MEDICAL RECORD
--- NOTE | 2023-03-12 12:41 | PM.PNNEP ---
Subjective Subjective Date of Service: 03/12/23 Principal diagnosis: Congestive heart failure and acute [place] Interval history: seen and examined sleeping Physical Exam Vital Signs: Vital Signs: Last Vital Signs Temp 98.0 F 03/12/23 11:09 Pulse 96 03/12/23 11:09 Resp 20 03/12/23 11:09 BP 156/70 H 03/12/23 11:09 Pulse Ox 93 03/12/23 11:09 O2 Del Method Nasal Cannula 03/12/23 11:09 O2 Flow Rate 2 03/12/23 11:09 Oxygen Flow Rate 6 03/07/23 13:05 BMI result Body Mass Index 34.1 Const: General: no acute distress, alert and awake HEENT: Head: Yes normocephalic and Yes atraumatic Neck: Neck: Yes supple Resp: Auscultation: diminished lung sounds Cardio: Heart sounds: S1 normal heart sound present and S2 normal heart sound present GI: Palpation (GI): Soft to palpation and nontender Extrem: General: Yes edema and Yes pedal edema Objective Data Labs 03/12/23 05:53 03/12/23 05:53 Labs: Laboratory Results - last 24 hr 03/12/23 03/12/23 05:53 05:53 WBC 9.2 RBC 2.67 L Hgb 8.1 L Hct 23.9 L MCV 89.5 MCH 30.3 MCHC 33.9 RDW 14.9 Plt Count 217 MPV 11.3 Absolute Nucleated RBC 0.000 Nucleated RBC % (auto) 0.0 Sodium 130 L Potassium 3.9 Chloride 97 Carbon Dioxide 18 L Anion Gap 19 BUN 118 H Creatinine 3.06 H Estim Creat Clear Calc 17.1 Estimated GFR 15 Fasting Glucose 93 Calcium 9.1 Procedures Date of Service Date of Service: 03/12/23 Assessment & Plan Assessment and plan (1) CKD (chronic kidney disease) stage 4, GFR 15-29 ml/min: Status: Acute (2) (HFpEF) heart failure with preserved ejection fraction: Status: Acute (3) Metabolic acidosis: Status: Acute (4) Anemia aplastic aregenerative: Status: Acute Plan known severe CKD kidney function at baseline baseline Scr ~ 3 mg/dl h/o diastolic HF volume status above dry weight nephrogenic anemia iron profile acceptable she will need MOON o/p hytpervolemic hyponatremia REC c/w bumetanide gtt strict I/O daily weight follow kidney function and electrolytes Time Spent With Patient Time: Total time managing care of this patient today ____ minutes. Progress Note: Quality Stroke Does the patient have a stroke diagnosis?: No
[2023-03-12] MEDS: Isosorbide Dinitrate 10 MG TABLET PO ×2 (14:10→19:01)
[2023-03-12] MEDS: hydrALAZINE HCl 25 MG TABLET 75 MG PO ×2 (14:10→20:15)
[2023-03-12] MEDS: Bumetanide 25 MG in Container,Empty 0 ML 4 MG IVCONT (15:49)
[2023-03-12] MEDS: Acetaminophen 325 MG TABLET 650 MG PO (17:55)
[2023-03-12] MEDS: Morphine Sulfate Oral Sol 10 MG/5 ML SOLUTION 5 MG PO (20:14)
[2023-03-12] MEDS: Pregabalin 25 MG CAPSULE PO (20:15)
[2023-03-12] MEDS: Atorvastatin Calcium 80 MG TABLET PO (20:16)
[2023-03-12] MEDS: Cyanocobalamin (Vitamin B-12) 1,000 MCG TABLET 1000 MCG PO (20:16)
[2023-03-13] MEDS: Heparin Sodium,Porcine 5,000 UNIT/ML VIAL 5000 UNIT SUBCUT ×4 (00:31→22:39)
[2023-03-13] MEDS: 0.9 % Sodium Chloride Flush 3 ML SYRINGE IVFLUSH ×3 (00:32→17:51)
[2023-03-13 03:48] VITALS: BP 168/69; PULSE 70; RESP 20; TEMP 36.3; O2SAT 99
[2023-03-13 06:14] LABS: Hematocrit 22.8 % (37.0-47.0); Hemoglobin 7.8 g/dl (12.0-16.0); Mean Corpuscular HGB Conc 34.2 g/dl (31.0-35.0); Mean Corpuscular Hemoglobin 30.2 pg (27.0-33.0); Mean Corpuscular Volume 88.4 fL (80.0-98.0); Mean Platelet Volume 10.7 fL (9.4-12.3); Platelet Count 228 X10*3/uL (160-400); Red Blood Count 2.58 X10*6/uL (4.20-5.50); Red Cell Distribution Width 14.8 % (11.0-16.0); White Blood Count 8.7 X10*3/uL (4.8-10.8)
[2023-03-13 06:30] LABS: Anion Gap 18 (12-20); Blood Urea Nitrogen 123 mg/dL (9-16); Carbon Dioxide 21 mmol/L (22-29); Chloride 95 mmol/L (96-108); Creatinine Clr Calc Pharmacy 16.2; Estimated Glomerular Filt Rate 14; Glucose Fasting 94 mg/dL (60-99); Potassium 3.3 mmol/L (3.3-5.1); Sodium 131 mmol/L (135-145)
[2023-03-13 07:26] VITALS: BP 181/77; PULSE 68; RESP 20; TEMP 36.6; O2SAT 98
--- NOTE | 2023-03-13 08:39 | P.PNIM_ITS ---
Subjective Subjective Date of Service: 03/13/23 Interval History: still with significant edema, overall improved Physical Exam Vital Signs: Vital Signs: Last Vital Signs Temp 97.9 F 03/13/23 07:26 Pulse 68 03/13/23 07:26 Resp 20 03/13/23 07:26 BP 181/77 H 03/13/23 07:26 Pulse Ox 98 03/13/23 07:26 O2 Del Method Nasal Cannula 03/13/23 07:26 O2 Flow Rate 2 03/13/23 07:26 Oxygen Flow Rate 6 03/07/23 13:05 BMI result Body Mass Index 34.1 Const: General: no acute distress, alert and awake HEENT: Head: Yes normocephalic and Yes atraumatic Neck: Neck: Yes supple Resp: Auscultation: diminished lung sounds Cardio: Heart sounds: S1 normal heart sound present and S2 normal heart sound present GI: Palpation (GI): Soft to palpation and nontender Extrem: General: Yes edema and Yes pedal edema Objective Data Active Medications Acetaminophen (Acetaminophen 325 Mg Tablet) 650 mg PO Q6H PRN PRN Reason: Pain, Mild (Pain Scale 1-3) Last Admin: 03/12/23 17:55 Dose: 650 mg Documented By: FRANCISCO Albuterol/Ipratropium (Albuterol/Iprat 2.5/0.5mg 3 Ml Ampul.Neb) 3 ml INHALE RQ4H PRN PRN Reason: Shortness of Breath/Wheezing Amlodipine Besylate (Amlodipine Besylate 10 Mg Tablet) 10 mg PO DAILY [facility]; Protocol Last Admin: 03/12/23 08:28 Dose: 10 mg Documented By: FRANCISCO Aspirin (Aspirin Enteric Coated 81 Mg Tablet.Dr) 81 mg PO DAILY [facility] Last Admin: 03/12/23 08:28 Dose: 81 mg Documented By: FRANCISCO Atorvastatin Calcium (Atorvastatin Calcium 80 Mg Tablet) 80 mg PO BEDTIME [facility] Last Admin: 03/12/23 20:16 Dose: 80 mg Documented By: SATURNINO Bisacodyl (Bisacodyl 10 Mg Supp.Rect) 10 mg AK DAILY PRN PRN Reason: Constipation Last Admin: 03/10/23 23:10 Dose: 10 mg Documented By: SALVATORE Carvedilol (Carvedilol 6.25 Mg Tablet) 6.25 mg PO BID [facility]; Protocol Last Admin: 03/12/23 20:15 Dose: 6.25 mg Documented By: SATURNINO Clopidogrel Bisulfate (Clopidogrel Bisulfate 75 Mg Tablet) 75 mg PO DAILY [facility] Last Admin: 03/12/23 08:28 Dose: 75 mg Documented By: FRANCISCO Cyanocobalamin (Cyanocobalamin (Vitamin B-12) 1,000 Mcg Tablet) 1,000 mcg PO BEDTIME [facility] Last Admin: 03/12/23 20:16 Dose: 1,000 mcg Documented By: SATURNINO Heparin Sodium (Porcine) (Heparin Sodium,Porcine 5,000 Unit/Ml Vial) 5,000 unit SUBCUT Q8H [facility] Last Admin: 03/13/23 00:31 Dose: 5,000 unit Documented By: SATURNINO Hydralazine HCl (Hydralazine Hcl 25 Mg Tablet) 75 mg PO TID [facility]; Protocol Last Admin: 03/12/23 20:15 Dose: 75 mg Documented By: SATURNINO Bumetanide 25 mg/ IV (Miscellaneous Supplies) 100 mls @ 4 mls/hr IVCONT .Q24H [facility] Last Admin: 03/12/23 15:49 Dose: 1 mg/hr, 4 mls/hr Documented By: FRANCISCO Isosorbide Dinitrate (Isosorbide Dinitrate 10 Mg Tablet) 10 mg PO 0800,1300,1800 [facility]; Protocol Last Admin: 03/12/23 19:01 Dose: 10 mg Documented By: FRANCISCO Lactulose (Lactulose 20 Gm/30 Ml Solution) 20 gm PO BID [facility] Last Admin: 03/12/23 20:28 Dose: 20 gm Documented By: SATURNINO Multivitamins/Vitamin C (Multivitamin Tablet) 1 tab PO DAILY [facility] Last Admin: 03/12/23 08:28 Dose: 1 tab Documented By: FRANCISCO Nitroglycerin (Nitroglycerin 0.4 Mg Tab.Subl) 0.4 mg SUBLINGUAL Q5MX3 PRN PRN Reason: Chest Pain Ondansetron HCl (Ondansetron Hcl 4 Mg/2 Ml Vial) 4 mg IVPUSH Q8H PRN PRN Reason: Nausea and Vomiting Last Admin: 03/07/23 23:23 Dose: 4 mg Documented By: HO.WILLIAC Pharmacy Consult (Consult Rx Perform Med Rec) 1 each MISCELLANE ONCE PRN PRN Reason: Consult order Pregabalin (Pregabalin 25 Mg Capsule) 25 mg PO BEDTIME [facility] Last Admin: 03/12/23 20:15 Dose: 25 mg Documented By: SATURNINO Sodium Biphosphate/Sodium Phosphate (Sodium Phosphate,Treasure-Dibasic 133 Ml Enema) 118 ml AK DAILY PRN PRN Reason: Constipation Sodium Chloride (0.9 % Sodium Chloride Flush 3 Ml Syringe) 3 ml IVFLUSH QSHIFT [facility] Last Admin: 03/13/23 00:32 Dose: 3 ml Documented By: SATURNINO Sodium Zirconium Cyclosilicate (Sodium Zirconium Cyclosilicate 10 Gm Powd.Pack) 10 gm PO DAILY [facility] Last Admin: 03/12/23 08:28 Dose: 10 gm Documented By: FRANCISCO Labs 03/13/23 06:02 03/13/23 06:00 Labs: Laboratory Results - last 24 hr 03/13/23 03/13/23 06:00 06:02 MCV 88.4 MCH 30.2 MCHC 34.2 RDW 14.8 Plt Count 228 MPV 10.7 Absolute Nucleated RBC 0.000 Nucleated RBC % (auto) 0.0 Anion Gap 18 Estim Creat Clear Calc 16.2 Estimated GFR 14 Fasting Glucose 94 Calcium 9.0 Assessment and Plan (1) Anemia aplastic aregenerative: Status: Acute (2) (HFpEF) heart failure with preserved ejection fraction: Status: Acute (3) Metabolic acidosis: Status: Acute (4) CKD (chronic kidney disease) stage 4, GFR 15-29 ml/min: Status: Acute (5) CHF (congestive heart failure): Status: Acute Plan 82F PMH of dCHF on 2L O2, CKD IV, HTN, HLD, CAD on medical tx who presented with SOB and dyspnea. Acute on chronic hypoxic respiratory failure 2/2 acute on chronic diastolic CHF exacerbation changed to bumex drip - increased to 1mg/hr, given 10mg metolazone 03/11/23 back to baseline 2L home o2 Elevated Trop with CAD, type II NSTEMI Finished Lovenox full dose for 48 hours continue ASA, Plavix, Statin Isordil tid increased Hydralazine tid to 50mg cut down Carvedilol to 6.25 mg bid Acute on chronic symptomatic anemia s/p 2 units prbc CKD 4 monitor BMP HTN hold Amlodipine DVT PPx Lovenox reason for continued hospitalization:iv diuresis Time Spent With Patient Time: Total time managing care of this patient today ____ minutes. Quality Stroke Does the patient have a stroke diagnosis?: No VTE Prior VTE?: No VTE Risk Level:: Medical - moderate - high VTE Device Contraindication: Treatment Not Indicated VTE Drug Contraindication: N/A - Med Ordered
[2023-03-13] MEDS: Sodium Zirconium Cyclosilicate 10 GM POWD.PACK PO (08:54)
[2023-03-13] MEDS: Lactulose 20 GM/30 ML SOLUTION PO ×2 (08:55→21:45)
[2023-03-13] MEDS: amLODIPine Besylate 10 MG TABLET PO (08:56)
[2023-03-13] MEDS: hydrALAZINE HCl 25 MG TABLET 75 MG PO (08:57)
[2023-03-13] MEDS: Isosorbide Dinitrate 10 MG TABLET PO ×3 (08:57→17:52)
[2023-03-13] MEDS: Multivitamin TABLET 1 TAB PO (08:57)
[2023-03-13] MEDS: Clopidogrel Bisulfate 75 MG TABLET PO (08:58)
[2023-03-13] MEDS: Aspirin Enteric Coated 81 MG TABLET.DR PO (08:58)
[2023-03-13] MEDS: carvediloL 6.25 MG TABLET PO ×2 (08:59→21:44)
--- NOTE | 2023-03-13 10:48 | PM.PNNEP ---
Subjective Subjective Date of Service: 03/13/23 Principal diagnosis: Congestive heart failure and acute [place] Interval history: seen and examined denies SOB Physical Exam Vital Signs: Vital Signs: Last Vital Signs Temp 97.9 F 03/13/23 07:26 Pulse 68 03/13/23 07:26 Resp 20 03/13/23 07:26 BP 181/77 H 03/13/23 07:26 Pulse Ox 98 03/13/23 07:26 O2 Del Method Nasal Cannula 03/13/23 07:26 O2 Flow Rate 2 03/13/23 07:26 Oxygen Flow Rate 6 03/07/23 13:05 BMI result Body Mass Index 34.1 Const: General: no acute distress, alert and awake HEENT: Head: Yes normocephalic and Yes atraumatic Neck: Neck: Yes supple Resp: Auscultation: diminished lung sounds Cardio: Heart sounds: S1 normal heart sound present and S2 normal heart sound present GI: Palpation (GI): Soft to palpation and nontender Extrem: General: Yes edema and Yes pedal edema Objective Data Labs 03/13/23 06:02 03/13/23 06:00 Labs: Laboratory Results - last 24 hr 03/13/23 03/13/23 06:00 06:02 WBC 8.7 RBC 2.58 L Hgb 7.8 L Hct 22.8 L MCV 88.4 MCH 30.2 MCHC 34.2 RDW 14.8 Plt Count 228 MPV 10.7 Absolute Nucleated RBC 0.000 Nucleated RBC % (auto) 0.0 Sodium 131 L Potassium 3.3 Chloride 95 L Carbon Dioxide 21 L Anion Gap 18 BUN 123 H Creatinine 3.22 H Estim Creat Clear Calc 16.2 Estimated GFR 14 Fasting Glucose 94 Calcium 9.0 Procedures Date of Service Date of Service: 03/13/23 Assessment & Plan Assessment and plan (1) CKD (chronic kidney disease) stage 4, GFR 15-29 ml/min: Status: Acute (2) (HFpEF) heart failure with preserved ejection fraction: Status: Acute (3) Metabolic acidosis: Status: Acute (4) Anemia aplastic aregenerative: Status: Acute Plan known severe CKD baseline Scr ~ 3 mg/dl h/o diastolic HF volume status improving but remains above dry weight nephrogenic anemia iron profile acceptable she will need MOON o/p hytpervolemic hyponatremia REC c/w bumetanide gtt strict I/O daily weight follow kidney function and electrolytes Time Spent With Patient Time: Total time managing care of this patient today ____ minutes. Progress Note: Quality Stroke Does the patient have a stroke diagnosis?: No
[2023-03-13 11:22] VITALS: BP 149/66; PULSE 84; RESP 16; TEMP 36.4; O2SAT 93
--- NOTE | 2023-03-13 14:14 | PM.PNCARD ---
Subjective Subjective Date of Service: 03/13/23 Principal diagnosis: Congestive heart failure and acute [place] Interval history: Seen and examined at bedside. Physical Exam Vital Signs: Last Vital Signs Temp 97.6 F 03/13/23 11:22 Pulse 84 03/13/23 11:22 Resp 16 03/13/23 11:22 BP 149/66 H 03/13/23 11:22 Pulse Ox 93 03/13/23 11:22 O2 Del Method Nasal Cannula 03/13/23 11:22 O2 Flow Rate 2 03/13/23 11:22 Oxygen Flow Rate 6 03/07/23 13:05 BMI result Body Mass Index 34.1 GENERAL APPEARANCE: in no acute distress, on supplemental oxygen. NECK: no carotid bruit, mild jugular venous distention. SKIN: no suspicious lesions, warm and dry. HEART: no murmurs, regular rate and rhythm. LUNGS: Clear to auscultation. ABDOMEN: soft, nontender. EXTREMITIES: 2+ edema. PERIPHERAL PULSES: equal. NEUROLOGIC: No gross deficits, AAO X 3 Objective Labs and Meds 03/13/23 06:02 03/13/23 06:00 Lab results: Laboratory Results - last 24 hr 03/13/23 03/13/23 06:00 06:02 WBC 8.7 RBC 2.58 L Hgb 7.8 L Hct 22.8 L MCV 88.4 MCH 30.2 MCHC 34.2 RDW 14.8 Plt Count 228 MPV 10.7 Absolute Nucleated RBC 0.000 Nucleated RBC % (auto) 0.0 Sodium 131 L Potassium 3.3 Chloride 95 L Carbon Dioxide 21 L Anion Gap 18 BUN 123 H Creatinine 3.22 H Estim Creat Clear Calc 16.2 Estimated GFR 14 Fasting Glucose 94 Calcium 9.0 Progress Note: A&P Assessment and plan (1) Congestive heart failure: Status: Acute (2) CKD (chronic kidney disease): Status: Acute Plan 82-year-old female with cardiomyopathy, advanced CKD and congestive heart failure. She has refused hemodialysis previously. Has been stable on Bumex drip. Still has significant peripheral edema and hold body volume overload. She has mild JVD. I think she may not have complete improvement in lower extremity edema. She is on pregabalin and amlodipine both can cause peripheral edema. Changed to Bumex 2 mg p.o. b.i.d.. Continue hydralazine at 100 mg 3 times a day along with Isordil. Continue carvedilol at a lower dose of 6.25 mg twice a day. She should have palliative care discussion before discharge. Signing off. Thank you for allowing me to participate in the care of your patient. Please feel free to contact me if you have any questions. Time Spent With Patient Time: Total time managing care of this patient today ____ minutes. Progress Note: Quality Stroke Does the patient have a stroke diagnosis?: No Procedures Date of Service Date of Service: 03/13/23
[2023-03-13] MEDS: hydrALAZINE HCl 50 MG TABLET 100 MG PO ×2 (14:24→21:44)
[2023-03-13] MEDS: Acetaminophen 325 MG TABLET 650 MG PO ×2 (14:29→21:46)
[2023-03-13] MEDS: Bumetanide 25 MG in Container,Empty 0 ML 4 MG IVCONT (14:40)
[2023-03-13 15:58] VITALS: BP 131/44; PULSE 68; RESP 20; TEMP 36.2; O2SAT 94
[2023-03-13 20:00] VITALS: BP 161/71; PULSE 69; RESP 20; TEMP 35.8; O2SAT 90
[2023-03-13] MEDS: Atorvastatin Calcium 80 MG TABLET PO (21:44)
[2023-03-13] MEDS: Cyanocobalamin (Vitamin B-12) 1,000 MCG TABLET 1000 MCG PO (21:44)
[2023-03-13] MEDS: Pregabalin 25 MG CAPSULE PO (21:44)
[2023-03-13] MEDS: Lidocaine 4 % Patch ADH..PATCH 1 PATCH TRANSDERMA (22:39)
[2023-03-13 23:06] VITALS: BP 134/60; PULSE 62; RESP 18; TEMP 36; O2SAT 92
[2023-03-14 03:23] VITALS: BP 139/58; PULSE 67; RESP 18; TEMP 36.2; O2SAT 98
[2023-03-14 06:23] LABS: Hemoglobin 7.9 g/dl (12.0-16.0); Mean Corpuscular HGB Conc 32.9 g/dl (31.0-35.0); Mean Corpuscular Hemoglobin 29.4 pg (27.0-33.0); Mean Corpuscular Volume 89.2 fL (80.0-98.0); Platelet Count 234 X10*3/uL (160-400); Red Blood Count 2.69 X10*6/uL (4.20-5.50); Red Cell Distribution Width 14.9 % (11.0-16.0); White Blood Count 7.7 X10*3/uL (4.8-10.8)
[2023-03-14 06:30] LABS: Anion Gap 18 (12-20); Blood Urea Nitrogen 121 mg/dL (9-16); Calcium 8.8 mg/dL (8.4-10.2); Carbon Dioxide 23 mmol/L (22-29); Chloride 94 mmol/L (96-108); Creatinine Clr Calc Pharmacy 16.2; Estimated Glomerular Filt Rate 14; Glucose Fasting 95 mg/dL (60-99); Potassium 3.1 mmol/L (3.3-5.1); Sodium 132 mmol/L (135-145)
[2023-03-14 07:19] VITALS: BP 156/72; PULSE 67; RESP 16; TEMP 36.4; O2SAT 96
[2023-03-14] MEDS: Acetaminophen 325 MG TABLET 650 MG PO (08:00)
[2023-03-14] MEDS: amLODIPine Besylate 10 MG TABLET PO (08:01)
[2023-03-14] MEDS: carvediloL 6.25 MG TABLET PO (08:01)
[2023-03-14] MEDS: Isosorbide Dinitrate 10 MG TABLET PO (08:01)
[2023-03-14] MEDS: hydrALAZINE HCl 50 MG TABLET 100 MG PO (08:01)
[2023-03-14] MEDS: Multivitamin TABLET 1 TAB PO (08:01)
[2023-03-14] MEDS: Clopidogrel Bisulfate 75 MG TABLET PO (08:01)
[2023-03-14] MEDS: Potassium Chloride ER 20 MEQ TAB.ER.PRT 40 MEQ PO (08:01)
[2023-03-14] MEDS: Aspirin Enteric Coated 81 MG TABLET.DR PO (08:01)
--- NOTE | 2023-03-14 08:01 | PM.PNNEP ---
Subjective Subjective Date of Service: 03/14/23 Principal diagnosis: Congestive heart failure and acute [place] Interval history: seen and examined denies SOB d/medical attending Physical Exam Vital Signs: Vital Signs: Last Vital Signs Temp 97.6 F 03/14/23 07:19 Pulse 67 03/14/23 07:19 Resp 16 03/14/23 07:19 BP 156/72 H 03/14/23 07:19 Pulse Ox 96 03/14/23 07:19 O2 Del Method Nasal Cannula 03/14/23 07:19 O2 Flow Rate 2 03/14/23 07:19 Oxygen Flow Rate 6 03/07/23 13:05 BMI result Body Mass Index 34.1 Const: General: no acute distress, alert and awake HEENT: Head: Yes normocephalic and Yes atraumatic Neck: Neck: Yes supple Resp: Auscultation: diminished lung sounds Cardio: Heart sounds: S1 normal heart sound present and S2 normal heart sound present GI: Palpation (GI): Soft to palpation and nontender Extrem: General: Yes edema and Yes pedal edema Objective Data Labs 03/14/23 05:52 03/14/23 05:51 Labs: Laboratory Results - last 24 hr 03/14/23 03/14/23 05:51 05:52 WBC 7.7 RBC 2.69 L Hgb 7.9 L Hct 24.0 L MCV 89.2 MCH 29.4 MCHC 32.9 RDW 14.9 Plt Count 234 MPV 11.0 Absolute Nucleated RBC 0.000 Nucleated RBC % (auto) 0.0 Sodium 132 L Potassium 3.1 L Chloride 94 L Carbon Dioxide 23 Anion Gap 18 BUN 121 H Creatinine 3.23 H Estim Creat Clear Calc 16.2 Estimated GFR 14 Fasting Glucose 95 Calcium 8.8 Procedures Date of Service Date of Service: 03/14/23 Assessment & Plan Assessment and plan (1) CKD (chronic kidney disease) stage 4, GFR 15-29 ml/min: Status: Acute (2) (HFpEF) heart failure with preserved ejection fraction: Status: Acute (3) Metabolic acidosis: Status: Acute (4) Anemia aplastic aregenerative: Status: Acute Plan known severe CKD baseline Scr ~ 3 mg/dl h/o diastolic HF volume status improving but remains above dry weight nephrogenic anemia iron profile acceptable she will need MOON o/p hypervolemic hyponatremia REC dc bumetanide gtt transition to bumetanide 2 mg po bid replace potassium fluid restriction 1.2 L follow kidney function and electrolytes Time Spent With Patient Time: Total time managing care of this patient today ____ minutes. Progress Note: Quality Stroke Does the patient have a stroke diagnosis?: No
[2023-03-14] MEDS: 0.9 % Sodium Chloride Flush 3 ML SYRINGE IVFLUSH (08:02)
[2023-03-14] MEDS: Heparin Sodium,Porcine 5,000 UNIT/ML VIAL 5000 UNIT SUBCUT (08:02)
[2023-03-14] MEDS: Lactulose 20 GM/30 ML SOLUTION PO (08:02)
[2023-03-14] MEDS: Bumetanide 1 MG TABLET 2 MG PO (09:50)
--- NOTE | 2023-03-14 10:23 | P.DS_ITS ---
DS: Providers Provider Date of Service: 03/14/23 Date of admission: 03/07/23 16:24 Primary care physician: Kay Mata MD Consults: 03/07/23 16:24 Consult to Cardiology Routine Consulting Provider: [facility] [place] Cardiovascular Services Reason for consultation: Elevated Trop , Pulm edema 03/10/23 07:48 Consult to Nephrology Routine Consulting Provider: Fuentes Clifford Reason for consultation: CKD4 w Pulm edema and low urine output. NO DIALYSIS. DS: Diagnosis Discharge Diagnosis (1) CKD (chronic kidney disease) stage 4, GFR 15-29 ml/min: Status: Acute (2) (HFpEF) heart failure with preserved ejection fraction: Status: Acute (3) Metabolic acidosis: Status: Acute (4) Anemia aplastic aregenerative: Status: Acute DS: Summary Hospital Course Hospital Course: from initial hpi: 82 years lady with PMH of dCHF on 2L O2, CKD IV, HTN, HLD, CAD on medical tx who presents with SOB and dyspnea. reports she has been getting more SOB over the last 2 days but overnight she became very SOB with associated cough and dyspnea. no fever, chills, nausea, vomitng or change in bowel habits. She reports drinking fair amount of fluids as she feels thirsty from diuresis. Denies any chest pain, palpitations or sweating. In ED found to be in respiratory distress with hypoxia requiring placement on CPAP. improved and weaned down to 4L O2 as she received Lasix. Trop Elevated >3600 with no new EKG changes. BNP >3000 Drop in Hb from 8 to 7. Admitted for further eval and management.,? hospital course: Patient was admitted for acute on chronic hypoxic respiratory failure secondary to acute on chronic systolic CHF. She was treated with continuous Bumex drip and metolazone. She diuresed well and was weaned down to baseline of 2 L home oxygen. Course was complicated by NSTEMI in setting of coronary disease. She received 48 hours of therapeutic Lovenox, dual antiplatelet, statin. She was started on ice a drill and hydralazine was increased to 100 t.i.d., Coreg was decreased to 6.25. For acute on chronic symptomatic anemia she was given 2 units PRBC. For CKD 4 she remained stable. For hypertension her amlodipine was held for peripheral edema. She was continued on meds as above. Patient is now back to baseline will be discharged to assisted facility. Time Spent with Patient Time attestation: Total time managing care of this patient today ____ minutes. Discharge coordination time: Greater than 30 minutes Quality: Safe Use of Opioids Does Pt have an Active Cancer Diagnosis on the Problem List?: No Quality: Stroke Does the patient have a stroke diagnosis?: No Physical Exam Vital Signs: Vital Signs: Last Vital Signs Temp 97.6 F 03/14/23 07:19 Pulse 67 03/14/23 07:19 Resp 16 03/14/23 07:19 BP 156/72 H 03/14/23 07:19 Pulse Ox 96 03/14/23 07:19 O2 Del Method Nasal Cannula 03/14/23 07:19 O2 Flow Rate 2 03/14/23 07:19 Oxygen Flow Rate 6 03/07/23 13:05 BMI result Body Mass Index 34.1 Const: General: no acute distress, alert and awake HEENT: Head: Yes normocephalic and Yes atraumatic Neck: Neck: Yes supple Resp: Auscultation: diminished lung sounds Cardio: Heart sounds: S1 normal heart sound present and S2 normal heart sound present GI: Palpation (GI): Soft to palpation and nontender Extrem: General: Yes edema and Yes pedal edema DS: Data Data Completed and Pending Completed studies during hospitalization [Text1]: Procedures Assistance with Respiratory Ventilation, 24-96 Consecutive Hours, Continuous Positive Airway Pressure (12/24/22) Drainage of Right Upper Arm Subcutaneous Tissue and Fascia, Open Approach (03/03/21) Excision of Ascending Colon, Via Natural or Artificial Opening Endoscopic, Diagnostic (01/07/21) Excision of Duodenum, Via Natural or Artificial Opening Endoscopic, Diagnostic (01/07/21) Excision of Stomach, Pylorus, Via Natural or Artificial Opening Endoscopic, Diagnostic (01/07/21) Insertion of Infusion Device into Right Brachial Vein, Percutaneous Approach (03/03/21) Transfusion of Nonautologous Red Blood Cells into Peripheral Vein, Percutaneous Approach (12/24/22) Labs on day of discharge: Laboratory Results - last 24 hr 03/14/23 03/14/23 05:51 05:52 WBC 7.7 RBC 2.69 L Hgb 7.9 L Hct 24.0 L MCV 89.2 MCH 29.4 MCHC 32.9 RDW 14.9 Plt Count 234 MPV 11.0 Absolute Nucleated RBC 0.000 Nucleated RBC % (auto) 0.0 Sodium 132 L Potassium 3.1 L Chloride 94 L Carbon Dioxide 23 Anion Gap 18 BUN 121 H Creatinine 3.23 H Estim Creat Clear Calc 16.2 Estimated GFR 14 Fasting Glucose 95 Calcium 8.8 Discharge Plan Discharge Anticipated Discharge Date/Time: 03/14/23 10:07 Patient Disposition: Xfer SNF Discharge Diagnosis: chf Referrals: Kay Chávez MD [Primary Care Provider] - 1 Week Discharge Medications: New isosorbide dinitrate 10 mg Tablet 10 mg PO 0800,1300,1800 Qty: 0 0RF Protocol: Hold for SBP< HOLD for SBP < : 90 carvedilol 6.25 mg Tablet 6.25 mg PO BID Qty: 0 0RF Protocol: Hold for SBP/HR < HOLD for SBP < : 90 HOLD for HR < : 60 ipratropium-albuterol 0.5 mg-3 mg(2.5 mg base)/3 mL Solution For Nebulization 3 ml inhalation RQ4H PRN (Reason: Shortness Of Breath/Wheezing) Qty: 90 0RF bumetanide 1 mg Tablet 2 mg PO BID@0800,1700 Qty: 0 0RF Protocol: Hold for SBP< HOLD for SBP < : 90 hydralazine 50 mg Tablet 100 mg PO TID Qty: 0 0RF Protocol: Hold for SBP< HOLD for SBP < : 90 lactulose 20 gram/30 mL Solution 20 g PO BID Qty: 0 0RF Continued (DME) adult diapers X-large See Rx Instructions .Route .MEDSUPPLY Qty: 240 6RF Rx Instructions: As directed (DME) personal wipes See Rx Instructions .Route .MEDSUPPLY Qty: 300 6RF Rx Instructions: As directed (DME) disposable gloves Misc See Rx Instructions .Route Qty: 200 6RF Rx Instructions: As directed atorvastatin 40 mg tablet 40 mg PO BEDTIME Qty: 90 0RF pregabalin 25 mg capsule 25 mg PO BEDTIME 30 Days Qty: 30 0RF acetaminophen 325 mg Tablet 650 mg PO Q6H PRN (Reason: Pain) cyanocobalamin (vitamin B-12) [Vitamin B-12] 1,000 mcg tablet 1,000 mcg PO BEDTIME amlodipine 10 mg tablet 10 mg PO DAILY multivitamin with folic acid 400 mcg tablet 1 tab PO DAILY clopidogrel 75 mg Tablet 75 mg PO DAILY Qty: 30 0RF aspirin 81 mg Tablet,Delayed Release (Dr/Ec) 81 mg PO DAILY Qty: 30 0RF bisacodyl 10 mg Suppository 10 mg NM DAILY PRN (Reason: Constipation) Fleet Enema 19-7 gram/118 mL Enema 118 ml NM DAILY PRN (Reason: Constipation) ferrous sulfate [FeroSul] 325 mg (65 mg iron) tablet 1 tab PO DAILY Lokelma 10 gram Powder In Packet 10 g PO DAILY morphine concentrate 100 mg/5 mL (20 mg/mL) Solution 5 mg PO Q4H PRN (Reason: Pain (Scale Score 4-6)) Discontinued bumetanide 2 mg tablet 2 mg PO DAILY 90 Days Qty: 90 1RF carvedilol 12.5 mg Tablet 12.5 mg PO BID Qty: 60 0RF Protocol: Hold for SBP/HR < HOLD for SBP < : 90 HOLD for HR < : 60 moxifloxacin 400 mg Tablet 400 mg PO DAILY Rx Instructions: ORDERED TO START 03/08/23 TO 03/13/23 Discharge Orders: Discharge Order (Routine); Ordered 03/14/23 Ordered By: Xavier Chaparro Diet: Advance to usual diet Activity on Discharge: As tolerated Stand Alone Forms: Patient Portal Discharge page Care Plan Goals: maange chf, avoid hospital Health Concerns: chf Plan of Treatment: bumex increased to 2mg bid Assessment: see above
--- NOTE | 2023-03-14 10:42 | MHC.CM.PN ---
Patient is medically cleared for dc to LTC/SNF today. Patient will return to LTC @ [place] [facility] today at 1PM, via [facility]. IMM addressed. Primary Contact/Daughter/Emilee @ listed # was not available by phone and had no VM set up; CM spoke with Second Contact/Daughter/Massiel @ listed # and informed her of the dc plan.
[2023-03-14 11:36] VITALS: BP 142/77; PULSE 70; RESP 18; TEMP 36.6; O2SAT 97
--- NOTE | 2023-03-14 12:58 | PC.NURSE ---
called [facility] to give RN -RN report but could not reach any one at facility.
== END 2023-03-14 14:03 | disposition skilled nursing facility (03) | DRG 280 ==
LOC: HO.ED 15:48 → HO.EDOVER 16:31 → HO.IMC 17:22
PROVIDERS: Internal Medicine; Internal Medicine Nephrology; Admitting Provider Student in an Organized Health Care Education/Training Program; Emergency Provider Emergency Medicine; PCP Internal Medicine; Visit Provider Internal Medicine
DX: I13.0 Hypertensive heart and chronic kidney disease with heart failure and stage 1 through stage 4 chronic kidney disease, or unspecified chronic kidney disease (principal); I21.A1 Myocardial infarction type 2; D61.89 Other specified aplastic anemias and other bone marrow failure syndromes; I50.33 Acute on chronic diastolic (congestive) heart failure; J96.21 Acute and chronic respiratory failure with hypoxia; N18.4 Chronic kidney disease, stage 4 (severe); E87.1 Hypo-osmolality and hyponatremia; E87.20 Acidosis, unspecified; I25.10 Atherosclerotic heart disease of native coronary artery without angina pectoris; E11.22 Type 2 diabetes mellitus with diabetic chronic kidney disease; E78.5 Hyperlipidemia, unspecified; E11.51 Type 2 diabetes mellitus with diabetic peripheral angiopathy without gangrene; D63.1 Anemia in chronic kidney disease; Z66 Do not resuscitate; Z91.041 Radiographic dye allergy status; Z99.81 Dependence on supplemental oxygen; Z79.02 Long term (current) use of antithrombotics/antiplatelets; Z79.82 Long term (current) use of aspirin; Z79.899 Other long term (current) drug therapy
CPT/HCPCS: 36415; 71045; 80048; 80053; 82272; 82803; 82947; 83540; 83880; 84484; 85025; 85027; 85610; 85730; 86850; 86900; 86901; 86923; 93005; 99285; J1643; J1650; J1940; J2270; J2405; P9016

== ENCOUNTER → 2023-03-07 16:24 | Outpatient (BNV) | payer OTHER, SELFPAY | PROVIDERS: Admitting Provider Student in an Organized Health Care Education/Training Program; Emergency Provider Emergency Medicine; PCP Internal Medicine; Visit Provider Student in an Organized Health Care Education/Training Program | DX: I50.9 Heart failure, unspecified (principal); R77.8 Other specified abnormalities of plasma proteins | CPT/HCPCS: 99223; 99232; 99233; 99239 ==

== ENCOUNTER → 2023-03-07 16:24 | Outpatient (BNV) | payer OTHER, SELFPAY | PROVIDERS: Admitting Provider Student in an Organized Health Care Education/Training Program; Emergency Provider Emergency Medicine; PCP Internal Medicine; Visit Provider Internal Medicine Cardiovascular Disease | DX: I50.9 Heart failure, unspecified (principal); N18.9 Chronic kidney disease, unspecified | CPT/HCPCS: 93010; 99222; 99232; 99233 ==

== ENCOUNTER 2023-04-14 21:40 | Inpatient (IN) | payer OTHER, SELFPAY ==
--- NOTE | 2023-04-14 | ECG_ITS ---
Test Reason : SOB Blood Pressure : / mmHG Vent. Rate : 076 BPM Atrial Rate : 076 BPM P-R Int : 158 ms QRS Dur : 116 ms QT Int : 390 ms P-R-T Axes : 041 -23 136 degrees QTc Int : 438 ms Normal sinus rhythm Minimal voltage criteria for LVH, may be normal variant ( Carlitos product ) Cannot rule out Anterior infarct , age undetermined ST & T wave abnormality, consider lateral ischemia Abnormal ECG When compared with ECG of 07-MAR-2023 13:04, T wave inversion now evident in Lateral leads Referred By: Zully Sanford Electronically Signed By:JOSY ALBERTS
--- NOTE | ~2023-04-14 | XR_ITS ---
EXAMINATION: XR CHEST CLINICAL INFORMATION: Shortness of breath. COMPARISON: 03/10/2023 TECHNIQUE: Frontal view of the chest was obtained. FINDINGS: The lung volumes are low. The cardiomediastinal silhouette is within normal limits and stable. There is pulmonary vascular congestion and perihilar increased markings. There is a left lingular and left lung base opacity. The bony structures and soft tissues are unremarkable. XR/XR chest 1V IMPRESSION: 1. Pulmonary vascular congestion and perihilar increased markings possibly fluid overload and/or early congestive heart failure with early interstitial edema. 2. Left lingular and apparent left lung base opacities. Consider pneumonia.
--- NOTE | ~2023-04-14 | XR_ITS ---
EXAMINATION: XR CHEST CLINICAL INFORMATION: Shortness of breath, hypoxia COMPARISON: 04/15/2023 TECHNIQUE: Frontal view of the chest was obtained. FINDINGS: Cardiac silhouette remains enlarged, aorta calcified. Progressive vascular prominence, right base opacity, right costophrenic angle blunting and right minor fissural fluid. Persistent opacity and costophrenic angle blunting on the left. Degenerative changes. Multiple lines overlie the patient. XR/XR chest 1V IMPRESSION: Likely worsening vascular congestion and increasing right pleural effusion. Persistent left base opacity, likely effusion, underlying consolidation not excluded.
[2023-04-14 21:58] VITALS: BP 109/43; BP 80/40; PULSE 77; RESP 31; TEMP 37.3; O2SAT 91; O2SAT 92; BMI 36.1
--- NOTE | 2023-04-14 22:07 | ED.SOB ---
HPI - SOB/Dyspnea General Chief Complaint: Upper Respiratory Symptoms Stated Complaint: SOB HYPOTENSIVE Time Seen by Provider: 04/14/23 21:58 Source: patient and EMS Mode of arrival: EMS Limitations: no limitations History of Present Illness HPI Narrative: 83-year-old Romanian speaking female brought in by EMS for evaluation of shortness of breath. Patient lives home with family, bed-bound at baseline, history of paraplegia due to fall in 2019, CVA, CKD, dm 2, CHF, HTN, HLD, PVD, uses 2 L of supplemental oxygen at baseline, patient been having shortness of breath with hypoxia at home of 85% seen by as an outpatient advised to increase her supplemental oxygen to 6 L, family decided to call EMS for further evaluation, on EMS arrival patient found to be hypoxic 85% despite the supplemental oxygen and also patient found to be hypotensive 1 time reading for EMS (systolic was in the 80s). Family also is concern of progressive worsening of lower extremity swelling. Patient otherwise declined fever, chills, coughing, CP. Related Data Home Medications Medication Instructions Recorded Confirmed cyanocobalamin (vitamin B-12) 1,000 mcg PO BEDTIME 08/17/22 03/07/23 1,000 mcg tablet (Vitamin B-12) multivitamin with folic acid 400 1 tab PO DAILY 08/17/22 03/07/23 mcg tablet ferrous sulfate 325 mg (65 mg 1 tab PO DAILY 03/07/23 03/07/23 iron) tablet (FeroSul) sodium phosphates 19 gram-7 118 ml NM DAILY PRN Constipation 03/07/23 03/07/23 gram/118 mL enema (Fleet Enema) sodium zirconium cyclosilicate 10 10 g PO DAILY 03/07/23 03/07/23 gram oral powder packet (Lokelma) Previous Rx's Medication Instructions Recorded lactulose 20 gram/30 mL oral 20 g (30 mL) PO BID #0 mL 03/14/23 solution carvedilol 6.25 mg tablet 6.25 mg PO BID 90 days #180 tabs 03/31/23 clopidogrel 75 mg tablet 75 mg PO DAILY 90 days #90 tabs 03/31/23 hydralazine 50 mg tablet 100 mg PO TID 90 days #540 tabs 03/31/23 isosorbide dinitrate 10 mg tablet 10 mg PO 0800,1300,1800 90 days 03/31/23 #270 tabs adult diapers #240 ea 04/01/23 disposable gloves #200 ea 04/01/23 personal wipes #300 ea 04/01/23 pregabalin 50 mg capsule 50 mg PO BID 30 days #60 caps 04/07/23 acetaminophen 325 mg tablet 650 mg PO Q6H PRN Pain 30 days #90 04/08/23 tabs amlodipine 10 mg tablet 10 mg PO DAILY 90 days #90 tabs 04/08/23 aspirin 81 mg tablet,delayed 81 mg PO DAILY #30 tabs 04/08/23 release atorvastatin 40 mg tablet 40 mg PO BEDTIME #90 tabs 04/08/23 bisacodyl 10 mg rectal suppository 10 mg NM DAILY PRN Constipation 04/08/23 100 days #100 ea bumetanide 1 mg tablet 2 mg PO BID@0800,1700 90 days #360 04/08/23 tabs ipratropium 0.5 mg-albuterol 3 mg 3 ml inhalation RQ4H PRN Shortness 04/08/23 (2.5 mg base)/3 mL nebulization Of Breath/Wheezing #90 mL soln morphine concentrate 100 mg/5 mL 5 mg (0.25 mL) PO Q4H PRN Pain 04/08/23 (20 mg/mL) oral solution (Scale Score 4-6) 30 days #45 mL nebulizers #1 ea 04/09/23 underpads (Bed Underpads) #100 ea 04/14/23 Allergies Allergy/AdvReac Type Severity Reaction Status Date / Time Iodinated Contrast Media Allergy Unknown UNKNOWN Verified 08/13/22 16:05 [IODINATED CONTRAST MEDIA] Review of Systems Review of Systems: All other systems are reviewed and are negative Constitutional: Reports as per HPI and Reports no additional constitutional complaints Eyes: Reports as per HPI and Reports no additional eye complaints Reports system reviewed and no additional complaints, except as documented Cardiovascular: Reports as per HPI and Reports no additional cardiovascular complaints Respiratory: Reports as per HPI and Reports no additional respiratory complaints Gastrointestinal: Reports as per HPI and Reports no additional gastrointestinal complaints Genitourinary: Reports no additional female genitourinary complaints Musculoskeletal: Reports no additional musculoskeletal complaints Skin/Breast: Reports system reviewed and no additional complaints, except as docu Psychiatric: Reports no additional psychiatric complaints Endocrine: Reports no additional endocrine complaints Hematologic/Lymphatic: Reports no additional hematologic/lymphatic complaints Allergic/Immunologic: Reports no additional allergic/immunologic complaints Reports system reviewed and no additional complaints, except as documented and Reports Abnormal speech present [facility] Past Medical History Medical History Abscess of forearm, right Acute on chronic diastolic heart failure Acute respiratory failure with hypoxia Anemia B12 deficiency Chronic renal insufficiency CKD (chronic kidney disease) Congestive heart failure Diabetes Femoral artery stenosis Gram-positive bacteremia High cholesterol Hypertension Hypoxia Lower extremity edema Psoriasis of scalp PVD (peripheral vascular disease) Surgical History History of female sterilization History of shoulder surgery Family History Family History Father No problems noted. Mother No problems noted. Social History Social History Household Members: Family Household Members Other:: Daughter Housing: Prison Do you presently have visiting nurse or other home services: Yes Alcohol intake: never Patient Tobacco Use Status: Never used Tobacco e-Cigarette/Vaping Use: Never Used Second Hand Smoke Exposure: No Advance Directives: Yes Advance Directives on File: Yes Advance Directives Date on File: 04/18/21 service: No Current occupational status: retired and disabled Cognitive needs: Yes Hearing needs: No Vision needs: No Physical Exam Vital Signs: Vital Signs: Last Vital Signs Temp 99.1 F 04/14/23 21:58 Pulse 79 04/14/23 23:35 Resp 27 H 04/14/23 23:35 BP 118/50 L 04/14/23 23:35 Pulse Ox 93 04/14/23 23:35 O2 Del Method Nasal Cannula 04/14/23 23:35 O2 Flow Rate 4 04/14/23 23:35 BMI result Body Mass Index 36.1 Vital signs have been reviewed as appeared to be correct. Blood pressure normal. Heart rate normal. Respiration rate normal. Temperature normal. Oxygen saturation normal. Appearance: Limited historian, awake, alert, oriented to place only. No acute distress. Head: Normal external exam. Normocephalic. Atraumatic. No Leyva signs noted. No raccoon eyes noted Eyes: PERRLA. EOMI. Conjunctiva and sclera normal. Eyelids normal. ENT: TM's Normal. Pharynx normal. Uvula midline. Moist mucous membranes. No trismus noted. No drooling noted. No muffled voice noted. Neck: Normal inspection. Neck supple. FROM. No adenopathy. Thyroid Normal. No meningeal signs. No neck mass noted. CVS: Normal heart rate and rhythm. Heart sound normal. No murmurs noted. Pulses normal throughout. Respiratory: No respiratory distress. Painless inspiration. Breath sounds normal. Bilateral rales up to half lung field bilaterally, Chest nontender. No accessory muscle usage noted or decreased air movement noted. Abdomen: Soft and nontender. Bowel sounds normal in all 4 quadrants. No distention noted. No organomegaly noted. No visible injury noted. Back: No CVA tenderness. Full range of motion noted. Skin: Skin warm and dry. Normal skin color. Normal skin turgor. No rashes/lesions/lacerations noted. Extremities: +2 lower extremity edema bilaterally. Extremities exhibit normal range of motion. Extremities nontender. Neuro:. Cranial nerve exam: II-XII are grossly intact No motor deficit. No sensory deficit. Reflexes normal. Course Course Course Narrative: 83-year-old female came in CHF and difficulty breathing with hypoxia, found to be anemic with melena and GI bleed. 1. Will transfuse 1 unit RBCs. 2. Patient in CHF will diurese carefully. 3. Non ST elevation HI case discussed with Dr. Cerna who recommended no heparin and blood transfusion. 4. inpatient monitoring. 5. Protonix/GI consult. Medications Administered Discontinued Medications Generic Name Dose Route Start Last Admin Trade Name Blayne PRN Reason Stop Dose Admin Aspirin 81 mg 04/14/23 22:15 04/14/23 22:36 Aspirin 81 Mg Tab.Chew PO 04/14/23 22:16 Not Given ONCE ONE Furosemide 40 mg 04/14/23 22:15 04/14/23 22:33 Furosemide 40 Mg/4 Ml Vial IVPUSH 04/14/23 22:16 40 mg STAT STA Administration Protocol Nitroglycerin 0.5 inch 04/14/23 22:15 04/14/23 22:33 Nitroglycerin 2 % Oint 1 Gm Packet TRANSDERMA 04/14/23 22:16 0.5 inch ONCE ONE Administration Medical Decision Making Differential Diagnosis Differential Diagnoses: The differential diagnosis associated with the presentation includes (CHF, pneumonia, pneumothorax, anemia, GI bleed, electrolyte abnormality, ACS, sepsis.) Admission/Observation Consideration of admission/observation: Escalation of care including admission/observation considered Consult Healthcare Provider Management of the patient was discussed with: Hospitalist (Dr. Huynh) and Billet Bed Operator (Dr. Cerna) Lab Data MDM Lab Attestation statement: I reviewed the patient's lab results. 04/14/23 22:15 04/14/23 22:15 Labs: Lab Results 04/14/23 04/14/23 04/14/23 Range/Units 22:15 22:15 22:15 WBC 8.7 (4.8-10.8) X10*3/uL RBC 2.27 L (4.20-5.50) X10*6/uL Hgb 6.6 L* (12.0-16.0) g/dl Hct 20.8 L* (37.0-47.0) % MCV 91.6 (80.0-98.0) fL MCH 29.1 (27.0-33.0) pg MCHC 31.7 (31.0-35.0) g/dl RDW 14.2 (11.0-16.0) % Plt Count 297 D (160-400) X10*3/uL MPV 11.0 (9.4-12.3) fL Immature Gran % (Auto) 2.0 H (0.0-0.4) % Neut % (Auto) 84.1 H (45-73) % Lymph % (Auto) 7.9 L (20-40) % [place] % (Auto) 5.3 (2-11) % Eos % (Auto) 0.6 (0-4) % Baso % (Auto) 0.1 (0-2) % Lymph # (Auto) 0.7 L (1.2-4.9) X10*3/uL [place] # (Auto) 0.5 (0.1-1.2) X10*3/uL Eos # (Auto) 0.1 (0.0-0.4) X10*3/uL Baso # (Auto) 0.0 (0.0-0.2) X10*3/uL Abs Immat Gran (auto) 0.17 H (0.00-0.03) X10*3/uL Absolute Neuts (auto) 7.3 (2.0-8.3) x10*3/uL Absolute Nucleated RBC 0.000 (0.0-0.012) X10*3/uL Nucleated RBC % (auto) 0.0 (0.0-0.2) /100WBC Sodium 130 L (135-145) mmol/L Potassium 4.3 D (3.3-5.1) mmol/L Chloride 95 L (96-108) mmol/L Carbon Dioxide 20 L (22-29) mmol/L Anion Gap 19 (12-20) BUN 148 H (9-16) mg/dL Creatinine 3.82 H (0.5-1.4) mg/dL Estim Creat Clear Calc 12.9 Estimated GFR 11 Random Glucose 146 H (60-115) mg/dL Lactic Acid 1.1 (0.5-2.0) mmol/L Calcium 9.1 (8.4-10.2) mg/dL Total Bilirubin 0.3 (0.0-1.0) mg/dL AST 17 (5-31) U/L ALT 9 (0-31) U/L Alkaline Phosphatase 72 (39-117) U/L Troponin I High Sens (<3.5-17.0) ng/L Total Protein 6.8 (6.5-8.0) g/dL Albumin 3.1 L (3.5-5.0) g/dL Lipase 42 (8-78) U/L Stool Occult Blood (NEGATIVE) Crossmatch 04/14/23 04/14/23 04/14/23 Range/Units 22:15 23:32 23:35 WBC (4.8-10.8) X10*3/uL RBC (4.20-5.50) X10*6/uL Hgb (12.0-16.0) g/dl Hct (37.0-47.0) % MCV (80.0-98.0) fL MCH (27.0-33.0) pg MCHC (31.0-35.0) g/dl RDW (11.0-16.0) % Plt Count (160-400) X10*3/uL MPV (9.4-12.3) fL Immature Gran % (Auto) (0.0-0.4) % Neut % (Auto) (45-73) % Lymph % (Auto) (20-40) % [place] % (Auto) (2-11) % Eos % (Auto) (0-4) % Baso % (Auto) (0-2) % Lymph # (Auto) (1.2-4.9) X10*3/uL [place] # (Auto) (0.1-1.2) X10*3/uL Eos # (Auto) (0.0-0.4) X10*3/uL Baso # (Auto) (0.0-0.2) X10*3/uL Abs Immat Gran (auto) (0.00-0.03) X10*3/uL Absolute Neuts (auto) (2.0-8.3) x10*3/uL Absolute Nucleated RBC (0.0-0.012) X10*3/uL Nucleated RBC % (auto) (0.0-0.2) /100WBC Sodium (135-145) mmol/L Potassium (3.3-5.1) mmol/L Chloride (96-108) mmol/L Carbon Dioxide (22-29) mmol/L Anion Gap (12-20) BUN (9-16) mg/dL Creatinine (0.5-1.4) mg/dL Estim Creat Clear Calc Estimated GFR Random Glucose (60-115) mg/dL Lactic Acid (0.5-2.0) mmol/L Calcium (8.4-10.2) mg/dL Total Bilirubin (0.0-1.0) mg/dL AST (5-31) U/L ALT (0-31) U/L Alkaline Phosphatase (39-117) U/L Troponin I High Sens 2554.6 H* D (<3.5-17.0) ng/L Total Protein (6.5-8.0) g/dL Albumin (3.5-5.0) g/dL Lipase (8-78) U/L Stool Occult Blood NEGATIVE (NEGATIVE) Crossmatch See Detail Independent Interpretation I performed an independent interpretation of an: EKG (Normal sinus rhythm at 76 beats per minutes, LVH, diffuse T-wave inversion in the lateral leads.) and Plain X-Ray Radiology Impression Discussion of test interpretation with radiology: I have reviewed the radiologist's reading. Chronic Conditions Patient?s care impacted by: Other (CHF.) Critical Care Time Critical Care Time Critical Care Time: Yes Total Critical Care Time: 60 Attestation: I spent 60 minutes providing critical care service to the patient, this including time spent at the bedside to evaluate the patient, reassess the patient, monitoring vital signs, review labs, and radiographic studies, counseling the patient/family, discussing the case with consultants, disposition the patient. Discharge Plan Discharge Clinical Impression: Anemia, CHF (congestive heart failure), Melena, Non-ST elevated myocardial infarction (non-STEMI) Patient Disposition: Admitted As Inpatient
[2023-04-14 22:21] LABS: MANUAL DIFF FLAG NO
[2023-04-14 22:24] LABS: Basophils Percent Auto 0.1 % (0-2); Eosinophils Absolute Auto 0.1 X10*3/uL (0.0-0.4); Eosinophils Percent Auto 0.6 % (0-4); Imm Gran Abs Auto 0.17 X10*3/uL (0.00-0.03); Lymphocytes Absolute Auto 0.7 X10*3/uL (1.2-4.9); Lymphocytes Percent Auto 7.9 % (20-40); Mean Corpuscular HGB Conc 31.7 g/dl (31.0-35.0); Mean Corpuscular Hemoglobin 29.1 pg (27.0-33.0); Mean Corpuscular Volume 91.6 fL (80.0-98.0); Monocytes Absolute Auto 0.5 X10*3/uL (0.1-1.2); Monocytes Percent Auto 5.3 % (2-11); Neutrophils Absolute Auto 7.3 x10*3/uL (2.0-8.3); Neutrophils Percent Auto 84.1 % (45-73); Platelet Count 297 X10*3/uL (160-400); Red Blood Count 2.27 X10*6/uL (4.20-5.50); Red Cell Distribution Width 14.2 % (11.0-16.0); White Blood Count 8.7 X10*3/uL (4.8-10.8)
[2023-04-14 22:25] VITALS: BP 112/47; PULSE 76; RESP 22
[2023-04-14] MEDS: Furosemide 40 MG/4 ML VIAL IVPUSH (22:33)
[2023-04-14] MEDS: Nitroglycerin 2 % Oint 1 GM Packet 0.5 INCH TRANSDERMA (22:33)
[2023-04-14 22:36] LABS: Hematocrit 20.8 % (37.0-47.0); Hemoglobin 6.6 g/dl (12.0-16.0)
[2023-04-14 22:54] LABS: Alanine Aminotransferase 9 U/L (0-31); Albumin Level 3.1 g/dL (3.5-5.0); Alkaline Phosphatase 72 U/L (39-117); Anion Gap 19 (12-20); Aspartate Amino Transferase 17 U/L (5-31); Bilirubin Total 0.3 mg/dL (0.0-1.0); Calcium 9.1 mg/dL (8.4-10.2); Carbon Dioxide 20 mmol/L (22-29); Chloride 95 mmol/L (96-108); Creatinine Clr Calc Pharmacy 12.9; Estimated Glomerular Filt Rate 11; Glucose Random 146 mg/dL (60-115); Lipase 42 U/L (8-78); Potassium 4.3 mmol/L (3.3-5.1); Sodium 130 mmol/L (135-145); Total Protein 6.8 g/dL (6.5-8.0)
[2023-04-14 23:01] LABS: Troponin-I High Sensitivity 2554.6 ng/L (<3.5-17.0)
[2023-04-14 23:10] LABS: Blood Urea Nitrogen 148 mg/dL (9-16)
--- NOTE | 2023-04-14 23:10 | PC.NURSE ---
BIBA based on playground monitor, MD at bedside, EKG and blood work obtained, spanish teacher utilized, Medicated per OCT. Lasixs given per MD, PO aspirin held per MD.
[2023-04-14 23:26] LABS: Lactic Acid 1.1 mmol/L (0.5-2.0)
[2023-04-14 23:35] VITALS: BP 118/50; PULSE 79; RESP 27; O2SAT 93
[2023-04-14 23:40] LABS: OBS Int Ctl Valid YES; OBS1 NEGATIVE (NEGATIVE)
[2023-04-14 23:45] LABS: B Type Natriuretic Peptide 4305 pg/mL (<100)
[2023-04-14] MEDS: Pantoprazole Sodium 40 MG/10 ML VIAL IVPUSH (23:51)
--- NOTE | 2023-04-14 23:53 | PC.NURSE ---
nitro paste removed from pt L chest per dr mckeon order. pt medicated according to oct. awaiting to hear from blood bank on status of blood
[2023-04-15] VITALS (14 sets, daily range): BP systolic 109–170; BP diastolic 42–84; PULSE 64–84; RESP 14–26; TEMP 36.3–37.1; O2SAT 91–97; BMI 34.6
--- NOTE | 2023-04-15 01:18 | PC.NURSE ---
1 unit of PRBC tranfusing at this time. vss. pt denies new sob, chest pain, BOONE, and or itchiness. c consultant utilized at this time. pt repositioned in bed. lights dimmed. bedside swallow eval performed
[2023-04-15] MEDS: Bumetanide 1 MG TABLET PO (01:37)
[2023-04-15] MEDS: Heparin Sodium,Porcine 5,000 UNIT/ML VIAL 5000 UNIT SUBCUT ×3 (01:37→21:42)
[2023-04-15] MEDS: 0.9 % Sodium Chloride Flush 3 ML SYRINGE IVFLUSH (01:40)
--- NOTE | 2023-04-15 03:47 | PC.NURSE ---
pt care taken over by this rn.
--- NOTE | 2023-04-15 03:57 | PC.NURSE ---
Pt bladder scanned 135ml, no urine output, primer charger and Dr. Durant aware. No new orders at this time.
--- NOTE | 2023-04-15 04:10 | PC.NURSE ---
blood product infusing on a pump, no s/s of reaction.
[2023-04-15 05:39] LABS: Basophils Percent Auto 0.2 % (0-2); Eosinophils Percent Auto 0.2 % (0-4); Hematocrit 25.9 % (37.0-47.0); Hemoglobin 8.5 g/dl (12.0-16.0); Imm Gran Abs Auto 0.18 X10*3/uL (0.00-0.03); Imm Gran Pct Auto 2.1 % (0.0-0.4); Lymphocytes Absolute Auto 0.7 X10*3/uL (1.2-4.9); Lymphocytes Percent Auto 8.4 % (20-40); MANUAL DIFF FLAG NO; Mean Corpuscular HGB Conc 32.8 g/dl (31.0-35.0); Mean Corpuscular Hemoglobin 29.6 pg (27.0-33.0); Mean Corpuscular Volume 90.2 fL (80.0-98.0); Mean Platelet Volume 10.8 fL (9.4-12.3); Monocytes Absolute Auto 0.5 X10*3/uL (0.1-1.2); Monocytes Percent Auto 5.6 % (2-11); Neutrophils Absolute Auto 7.3 x10*3/uL (2.0-8.3); Neutrophils Percent Auto 83.5 % (45-73); Platelet Count 281 X10*3/uL (160-400); Red Blood Count 2.87 X10*6/uL (4.20-5.50); Red Cell Distribution Width 14.4 % (11.0-16.0); White Blood Count 8.7 X10*3/uL (4.8-10.8)
--- NOTE | 2023-04-15 06:09 | PM.IMHP ---
History of Present Illness Date of Service: 04/15/23 Chief Complaint: Shortness of breath 83-year-old female with past medical history of diastolic CHF on 2 L of O2 at baseline, CKD stage 4, chronic anemia, HTN, HLD, CAD on medical treatment who presented to the hospital with shortness of breath. Patient is obtunded, history is obtained mostly family EMR and ED physician. Brought in by family for hypoxia. Patient was hypoxic at home per family, satting 85%, they had called her doctor which advised him to increase her oxygen to 6 L, which did not help, they called EMS for further evaluation. EMS reported hypoxia of 85% despite the 6 L of oxygen. Also reported to be hypotensive with systolic in the 80s. Patient's family is also concerned about her lower extremity edema. spoke to her daughter over the phone, pt saying that she cant breath. has not had cough, no recent fever. says that she has been slightly more tired. All other review of system unobtainable due to patient's medical presentation On arrival to the ED patient hemodynamically stable with tachypnea respiratory rate in the 30s, blood pressure stable, satting 95% on 4 L of O2 Labs are significant for WBC count is 0.7, hemoglobin of 6.6, hematocrit 20.8, sodium 130, chloride 95, creatinine of 3.82 which is around her recent baseline, troponin of 2554, BNP of 4300 Patient started on Bumex IV, discussion was made with Cardiology through the ED physician, no heparin at this time Patient being transfuse 1 unit of PRBC and will be admitted for further management Review of Systems Review of Systems: Yes Unobtainable due to mental condition and Unobtainable due to mental status [facility] Medical History Abscess of forearm, right Acute on chronic diastolic heart failure Acute respiratory failure with hypoxia Anemia B12 deficiency Chronic renal insufficiency CKD (chronic kidney disease) Congestive heart failure Diabetes Femoral artery stenosis Gram-positive bacteremia High cholesterol Hypertension Hypoxia Lower extremity edema Psoriasis of scalp PVD (peripheral vascular disease) Family History Father No problems noted. Mother No problems noted. Surgical History History of female sterilization History of shoulder surgery Social History Household Members: Family Household Members Other:: Daughter Housing: Longterm Do you presently have visiting nurse or other home services: Yes Alcohol intake: never Patient Tobacco Use Status: Never used Tobacco Smoked in Last 30 Days: No e-Cigarette/Vaping Use: Never Used Second Hand Smoke Exposure: No Use of substances other than those prescribed or required for medical reasons: No Advance Directives: Yes Advance Directives on File: Yes Advance Directives Date on File: 04/18/21 service: No Current occupational status: retired and disabled Cognitive needs: Yes Hearing needs: No Vision needs: No Meds Allergies Allergy/AdvReac Type Severity Reaction Status Date / Time Iodinated Contrast Media Allergy Unknown UNKNOWN Verified 08/13/22 16:05 [IODINATED CONTRAST MEDIA] Active Medications: Current Medications Acetaminophen (Acetaminophen 325 Mg Tablet) 650 mg PO Q6H PRN PRN Reason: Pain, Mild (Pain Scale 1-3) Bumetanide (Bumetanide 1 Mg Tablet) 1 mg PO BID@0800,1700 [facility]; Protocol Last Admin: 04/15/23 01:37 Dose: 1 mg Docusate Sodium (Docusate Sodium 100 Mg Capsule) 100 mg PO BID [facility] Heparin Sodium (Porcine) (Heparin Sodium,Porcine 5,000 Unit/Ml Vial) 5,000 unit SUBCUT BID [facility] Last Admin: 04/15/23 01:37 Dose: 5,000 unit Ondansetron HCl (Ondansetron Hcl 4 Mg/2 Ml Vial) 4 mg IVPUSH Q8H PRN PRN Reason: Nausea and Vomiting Sodium Chloride (0.9 % Sodium Chloride Flush 3 Ml Syringe) 3 ml IVFLUSH QSHIFT [facility] Last Admin: 04/15/23 01:40 Dose: 3 ml Home Medications Medication Instructions Recorded Confirmed Last Taken Type cyanocobalamin (vitamin B-12) 1,000 mcg PO BEDTIME 08/17/22 03/07/23 08/16/22 History 1,000 mcg tablet (Vitamin B-12) multivitamin with folic acid 400 1 tab PO DAILY 08/17/22 03/07/23 08/16/22 History mcg tablet ferrous sulfate 325 mg (65 mg 1 tab PO DAILY 03/07/23 04/15/23 Unknown History iron) tablet (FeroSul) sodium phosphates 19 gram-7 118 ml NH DAILY PRN Constipation 03/07/23 03/07/23 Unknown History gram/118 mL enema (Fleet Enema) sodium zirconium cyclosilicate 10 10 g PO DAILY 03/07/23 03/07/23 Unknown History gram oral powder packet (Lokelma) Physical Exam Vital Signs and Narrative: Vital Signs: Last Vital Signs Temp 98.2 F 04/15/23 04:39 Pulse 76 04/15/23 04:39 Resp 18 04/15/23 04:39 BP 128/48 L 04/15/23 04:39 Pulse Ox 94 04/15/23 03:42 O2 Del Method Room Air, Nasal C annula 04/15/23 03:42 O2 Flow Rate 15 04/15/23 03:42 Oxygen Flow Rate 4 04/15/23 00:05 BMI result Body Mass Index 36.1 Const: Other: Obtunded but arousable to painful stimuli Unable to assess orientation Eyes: General: appearance normal, both eyes and all related structures Pupils: Equal, round and reactive pupils present Resp: Other: Crackles bilaterally Effort & Inspection: normal respiratory effort Cardio: Other: Normal rate and rhythm Rate: regular rate Rhythm: regular rhythm GI: Other: Abdomen is obese, nontender Palpation (GI): Soft to palpation Auscultation: normal bowel sounds Skin: General skin exam: no rashes or lesions noted Neuro: Cranial nerves: Yes Equal, round and reactive pupils present Extrem: Other: 3+ pitting edema bilaterally General: Yes normal to inspection and Yes no pedal edema Results Labs 04/15/23 05:35 04/14/23 22:15 Labs: Laboratory Results - last 24 hr 04/14/23 04/14/23 04/14/23 22:15 22:15 22:15 MCV 91.6 MCH 29.1 MCHC 31.7 RDW 14.2 Plt Count 297 D MPV 11.0 Immature Gran % (Auto) 2.0 H Neut % (Auto) 84.1 H Lymph % (Auto) 7.9 L [place] % (Auto) 5.3 Eos % (Auto) 0.6 Baso % (Auto) 0.1 Lymph # (Auto) 0.7 L [place] # (Auto) 0.5 Eos # (Auto) 0.1 Baso # (Auto) 0.0 Abs Immat Gran (auto) 0.17 H Absolute Neuts (auto) 7.3 Absolute Nucleated RBC 0.000 Nucleated RBC % (auto) 0.0 Anion Gap 19 Estim Creat Clear Calc 12.9 Estimated GFR 11 Random Glucose 146 H Lactic Acid 1.1 Calcium 9.1 Total Bilirubin 0.3 AST 17 ALT 9 Alkaline Phosphatase 72 B-Natriuretic Peptide Total Protein 6.8 Albumin 3.1 L Lipase 42 Stool Occult Blood Blood Type Antibody Screen Crossmatch 04/14/23 04/14/23 04/14/23 22:19 23:32 23:35 MCV MCH MCHC RDW Plt Count MPV Immature Gran % (Auto) Neut % (Auto) Lymph % (Auto) [place] % (Auto) Eos % (Auto) Baso % (Auto) Lymph # (Auto) [place] # (Auto) Eos # (Auto) Baso # (Auto) Abs Immat Gran (auto) Absolute Neuts (auto) Absolute Nucleated RBC Nucleated RBC % (auto) Anion Gap Estim Creat Clear Calc Estimated GFR Random Glucose Lactic Acid Calcium Total Bilirubin AST ALT Alkaline Phosphatase B-Natriuretic Peptide 4305 H Total Protein Albumin Lipase Stool Occult Blood NEGATIVE Blood Type A Positive Antibody Screen NEGATIVE Crossmatch See Detail 04/15/23 05:35 MCV 90.2 MCH 29.6 MCHC 32.8 RDW 14.4 Plt Count 281 MPV 10.8 Immature Gran % (Auto) 2.1 H Neut % (Auto) 83.5 H Lymph % (Auto) 8.4 L [place] % (Auto) 5.6 Eos % (Auto) 0.2 Baso % (Auto) 0.2 Lymph # (Auto) 0.7 L [place] # (Auto) 0.5 Eos # (Auto) 0.0 Baso # (Auto) 0.0 Abs Immat Gran (auto) 0.18 H Absolute Neuts (auto) 7.3 Absolute Nucleated RBC 0.000 Nucleated RBC % (auto) 0.0 Anion Gap Estim Creat Clear Calc Estimated GFR Random Glucose Lactic Acid Calcium Total Bilirubin AST ALT Alkaline Phosphatase B-Natriuretic Peptide Total Protein Albumin Lipase Stool Occult Blood Blood Type Antibody Screen Crossmatch Imaging Radiologist's Impressions: Impressions Chest X-Ray 04/15/23 00:15 IMPRESSION: 1. Pulmonary vascular congestion and perihilar increased markings possibly fluid overload and/or early congestive heart failure with early interstitial edema. 2. Left lingular and apparent left lung base opacities. Consider pneumonia. Assessment and Plan (1) Acute exacerbation of CHF (congestive heart failure): Status: Acute (2) Non-ST elevated myocardial infarction (non-STEMI): Status: Acute (3) Acute on chronic anemia: Status: Acute (4) Metabolic encephalopathy: Status: Acute Plan 83-year-old female with past medical history of CHF, CAD, CKD, stage IV, history of chronic anemia, comes into the hospital with shortness of breath # acute hypoxic respiratory failure - very to CHF exacerbation - patient started on IV diuretics - monitor respiratory status - on baseline 2 L of oxygen # acute CHF exacerbation - has elevated BNP, lower extremity edema - given multiple rounds of diuretic IV pushes with minimal urine output, at this time will start her on Bumex IV similar to previous treatment on previous admission - cardiology consulted - strict I&O, low-sodium diet, daily weight, monitor urine output # acute on chronic anemia - anemia likely secondary to CKD - guaiac negative. No evidence of acute bleed - patient receive 1 unit of PRBC - follow CBC daily # NSTEMI - has significantly elevated troponin - given past medical history, anemia, at this time cardiology did not recommend heparin ggt - continue medical management - continue aspirin, statin, carvedilol, Plavix, isosorbide # CKD - stable - follow BMP # hypertension - continue antihypertensives DVT prophylaxis: Heparin subQ Given patient's need for IV diuretics patient will require minimum 2 nights inpatient hospital stay for further management and monitoring Time Spent With Patient Time: Total time managing care of this patient today ____ minutes. Quality Stroke Does the patient have a stroke diagnosis?: No VTE Prior VTE?: No VTE Risk Level:: Medical - moderate - high VTE Device Contraindication: Treatment Not Indicated VTE Drug Contraindication: N/A - Med Ordered
[2023-04-15 06:13] LABS: Alanine Aminotransferase 9 U/L (0-31); Albumin Level 3.2 g/dL (3.5-5.0); Alkaline Phosphatase 77 U/L (39-117); Anion Gap 21 (12-20); Aspartate Amino Transferase 17 U/L (5-31); Bilirubin Total 0.6 mg/dL (0.0-1.0); Calcium 9.5 mg/dL (8.4-10.2); Carbon Dioxide 20 mmol/L (22-29); Chloride 94 mmol/L (96-108); Creatinine Clr Calc Pharmacy 12.8; Estimated Glomerular Filt Rate 11; Glucose Random 139 mg/dL (60-115); Potassium 4.4 mmol/L (3.3-5.1); Sodium 131 mmol/L (135-145); Total Protein 7.2 g/dL (6.5-8.0)
[2023-04-15 06:24] LABS: Blood Urea Nitrogen 145 mg/dL (9-16)
[2023-04-15 06:42] LABS: Troponin-I High Sensitivity 2064.9 ng/L (<3.5-17.0)
[2023-04-15] MEDS: Bumetanide 25 MG in Container,Empty 0 ML 4 MG IVCONT (07:46)
--- NOTE | 2023-04-15 08:31 | CA_ITS ---
Transthoracic Echocardiogram Patient (Last, First, Middle): Kay Cuadra, H Gender: Female Date of : 1940 Age: 83 Procedure Date: 04/15/2023 Procedure Type: Transthoracic Echocardiogram Location: ER Height: 165.1 cm Weight: 97.98 kg BSA: 2.04 m2 Heart Rate: 66 bpm BP: 156 / 55 mmHg Direct Marketing Intern: TO Referring MD: Nabil Cerna MD Symptoms: NSTEMI Study Quality: Adequate/Contrast ECG Rhythm: Sinus Conclusions: - The left ventricular systolic function is moderately decreased. The calculated ejection fraction is 36% by biplane method. - Evidence suggests grade II (moderate) diastolic dysfunction. - There is evidence of regional wall motion abnormalities. - No obvious valvular pathology seen on this study. - There is a small loculated pericardial effusion overlying the left ventricle. Findings Procedure Information Contrast agent, definity, is being given per protocol without apparent complications. Left Ventricle Moderately increased left ventricular cavity size. There is normal left ventricular wall thickness. The left ventricular systolic function is moderately decreased. The calculated ejection fraction is 36% by biplane method. There is evidence of regional wall motion abnormalities. Elevated mean left atrial pressure. Evidence suggests grade II (moderate) diastolic dysfunction. Wall Motion Rest Echo Findings The inferolateral wall is hypokinetic. The apex, apical inferior, mid inferior, apical septum, and mid anteroseptal segments are akinetic. Right Ventricle Mildly increased right ventricular cavity size. There is normal right ventricular systolic function. Atria The left atrium is mildly dilated. The right atrium is normal in size. Aortic Valve There is mild calcification of the aortic valve. There is no aortic valve stenosis. There is no aortic valve regurgitation. Mitral Valve There is mild mitral annular calcification. There is mild mitral valve regurgitation. There is no mitral valve stenosis. Pulmonic Valve The pulmonic valve is likely normal. There is trace pulmonic valve regurgitation. Tricuspid Valve There is mild tricuspid valve regurgitation. Mild pulmonary hypertension is present. Great Vessels The asc aorta is normal in size. Venous The inferior vena cava is dilated and collapses less than 50% with inspiration. Pericardium/Pleural There is a small loculated pericardial effusion overlying the left ventricle. There is a moderate left sided pleural effusion. Prior Study Comparison No significant change compared to prior study dated: 12/25/2022. Recommendations, Care & Conclusions No obvious valvular pathology seen on this study. Measurements 2D Linear Measurements IVSd: 1.00 0.6-0.9/0.6-1.0 cm LVIDd: 6.10 3.9-5.3/4.2-5.9 cm LVIDd Index: 2.99 2.4-3.2/2.2-3.1 cm/m2 LVIDs: 4.80 2.0-3.6 cm LVPWd: 1.00 0.7-1.1 cm LA Diam: 4.50 2.7-3.8/3.0-4.0 cm LAIDs Index: 2.21 1.5-2.3 cm/m2 LV Mass: 316.64 67-162/88-224 g LV Mass Index: 155.21 43-95/49-115 g/m2 LVOT Diam: 2.00 3.0+(-)1.3 cm 2D Systolic Function EF 4C: 33.70 >55% EF 2C: 34.10 >55% EF BiP: 35.70 >55% Mitral Valve MV VTI: 0.39 MV Pk Alejo: 1.43 MV Mn Alejo: 0.96 MV Pk Grad: 8.00 MV Mn Grad: 4.00 MV Pk E: 1.40 MV PK A: 0.98 MV Decel Time: 207.00 E/A: 1.40 E'Lateral: 3.59 E'Medial: 3.15 E/E' Med: 44.40 E/E' Lat: 39.00 PHT: 61.00 MVA PHT: 3.61 MVA Continuity: 1.83 Decel [place]: 6.36 Aortic Valve AoV Pk Alejo: 2.03 AoV Mn Alejo: 1.44 AoV VTI: 0.48 AoV Pk Grad: 16.00 Aov Mn Grad: 9.00 OSWALDO Cont.VTI: 1.49 LVOT LVOT Pk Alejo: 0.92 LVOT Mn Alejo: 0.63 LVOT VTI: 0.23 LVOT Pk Grad: 3.00 LVOT Mn Grad: 2.00 LVOT Diam: 2.00 LVOT Area: 3.14 Diastolic Function MV Pk E: 1.40 MV Pk A: 0.98 E/A: 1.40 E'Medial: 3.15 E/E' Med: 44.40 E' Laterial: 3.59 E/E' Lat: 39.00 Tricuspid Valve TR Pk Alejo: 2.80 TR Pk Grad: 31.00 RA Press: 15.00 RVSP: 46.00 Great Vessels Aorta Sinus of Valsalva: 2.80 2.0-3.[address] [place]: 2.20 1.7-3.4 cm Ao Asc: 3.30 2.1-3.4 cm Updated in Other Vendor System with Status of Final Nabil Cerna MD electronically signed on 04/15/2023 12:41:28 PM with status of Final
[2023-04-15] MEDS: Clopidogrel Bisulfate 75 MG TABLET PO (08:50)
[2023-04-15] MEDS: Ferrous Sulfate 324 MG TABLET.DR PO (08:50)
[2023-04-15] MEDS: carvediloL 6.25 MG TABLET PO ×2 (08:50→21:42)
[2023-04-15] MEDS: Docusate Sodium 100 MG CAPSULE PO ×2 (08:50→21:42)
[2023-04-15] MEDS: Pregabalin 50 MG CAPSULE PO ×2 (08:50→21:42)
[2023-04-15] MEDS: Aspirin Enteric Coated 81 MG TABLET.DR PO (08:50)
--- NOTE | 2023-04-15 09:00 | PC.NURSE ---
pt axox3, respirations even and unlabored, lung sounds cta, sats 91% 2L NC, nsr on monitor 71 bpm, +3 pitting edema BLE, superficial coccyx wound cleaned barrier cream applied; pt repositioned to R. side. bumetanide infusing; purewick in place working properly. daughter at bedside. pt ate 100% breakfast. pt medicated per oct. all needs met at this time; call story within reach.
--- NOTE | 2023-04-15 09:54 | P.CONCA_ITS ---
History of Present Illness History of Present Illness Date of Service: 04/15/23 Chief complaint: CHF, Anemia Narrative: This is a cardiology consultation regarding elevated troponins. Multiple medical comorbidities. History of chronic congestive heart failure, chronic kidney disease, chronic anemia, presumed CAD. Present to the hospital shortness of breath. Patient is very sleepy and history is mostly obtained from family. Daughter at the bedside. Apparently, patient was hypoxic at home per family in the 80s and that led to EMS being called for further evaluation. Despite 6 L of oxygen, she was satting 80s and hence she is brought to the emergency room. These findings are reported H&P. Currently, patient seems very sleepy. She is not appearing to be in any distress. After arrival, her labs were checked. Troponins were over 2000. Subsequently, she was then admitted. However, looking back at the previous labs, her troponins are significantly higher, as much as 8000 last month. Overall, numerous troponins over the last several months have been extremely high and in fact the current admission is lower than before. Review of Systems Review of Systems: Unable to obtain review of systems as the patient is not very communicative. [facility] Past Medical History Medical History Abscess of forearm, right Acute on chronic diastolic heart failure Acute respiratory failure with hypoxia Anemia B12 deficiency Chronic renal insufficiency CKD (chronic kidney disease) Congestive heart failure Diabetes Femoral artery stenosis Gram-positive bacteremia High cholesterol Hypertension Hypoxia Lower extremity edema Psoriasis of scalp PVD (peripheral vascular disease) Family History Family History Father No problems noted. Mother No problems noted. Surgical History Surgical History History of female sterilization History of shoulder surgery Social History Social History Household Members: Family Household Members Other:: Daughter Housing: [facility] Do you presently have visiting nurse or other home services: Yes Alcohol intake: never Patient Tobacco Use Status: Never used Tobacco Smoked in Last 30 Days: No e-Cigarette/Vaping Use: Never Used Second Hand Smoke Exposure: No Use of substances other than those prescribed or required for medical reasons: No Advance Directives: Yes Advance Directives on File: Yes Advance Directives Date on File: 04/18/21 service: No Current occupational status: retired and disabled Cognitive needs: Yes Hearing needs: No Vision needs: No Meds Allergies Allergy/AdvReac Type Severity Reaction Status Date / Time Iodinated Contrast Media Allergy Unknown UNKNOWN Verified 08/13/22 16:05 [IODINATED CONTRAST MEDIA] Active Medications: Current Medications Acetaminophen (Acetaminophen 325 Mg Tablet) 650 mg PO Q6H PRN PRN Reason: Pain, Mild (Pain Scale 1-3) Aspirin (Aspirin Enteric Coated 81 Mg Tablet.) 81 mg PO DAILY [facility] Last Admin: 04/15/23 08:50 Dose: 81 mg Atorvastatin Calcium (Atorvastatin Calcium 40 Mg Tablet) 40 mg PO BEDTIME [facility] Carvedilol (Carvedilol 6.25 Mg Tablet) 6.25 mg PO BID [facility]; Protocol Last Admin: 04/15/23 08:50 Dose: 6.25 mg Clopidogrel Bisulfate (Clopidogrel Bisulfate 75 Mg Tablet) 75 mg PO DAILY [facility] Last Admin: 04/15/23 08:50 Dose: 75 mg Docusate Sodium (Docusate Sodium 100 Mg Capsule) 100 mg PO BID [facility] Last Admin: 04/15/23 08:50 Dose: 100 mg Ferrous Sulfate (Ferrous Sulfate 324 Mg Tablet.) 324 mg PO DAILY [facility] Last Admin: 04/15/23 08:50 Dose: 324 mg Heparin Sodium (Porcine) (Heparin Sodium,Porcine 5,000 Unit/Ml Vial) 5,000 unit SUBCUT BID [facility] Last Admin: 04/15/23 08:51 Dose: 5,000 unit Bumetanide 25 mg/ IV (Miscellaneous Supplies) 100 mls @ 4 mls/hr IVCONT .Q24H [facility] Last Admin: 04/15/23 07:46 Dose: 1 mg/hr, 4 mls/hr Ondansetron HCl (Ondansetron Hcl 4 Mg/2 Ml Vial) 4 mg IVPUSH Q8H PRN PRN Reason: Nausea and Vomiting Pregabalin (Pregabalin 50 Mg Capsule) 50 mg PO BID [facility] Last Admin: 04/15/23 08:50 Dose: 50 mg Sodium Chloride (0.9 % Sodium Chloride Flush 3 Ml Syringe) 3 ml IVFLUSH QSHIFT [facility] Last Admin: 04/15/23 07:47 Dose: Not Given Home Medications Medication Instructions Recorded Confirmed Last Taken Type cyanocobalamin (vitamin B-12) 1,000 mcg PO BEDTIME 08/17/22 04/15/23 08/16/22 History 1,000 mcg tablet (Vitamin B-12) multivitamin with folic acid 400 1 tab PO DAILY 08/17/22 04/15/23 08/16/22 History mcg tablet ferrous sulfate 325 mg (65 mg 1 tab PO DAILY 03/07/23 04/15/23 Unknown History iron) tablet (FeroSul) sodium phosphates 19 gram-[address] DAILY PRN Constipation 03/07/23 04/15/23 Unknown History gram/118 mL enema (Fleet Enema) Physical Exam Vital Signs: Vital Signs: Last Vital Signs Temp 97.9 F 04/15/23 08:02 Pulse 78 04/15/23 08:02 Resp 20 04/15/23 08:02 BP 146/62 H 04/15/23 08:02 Pulse Ox 91 L 04/15/23 08:02 O2 Del Method Nasal Cannula 04/15/23 08:02 O2 Flow Rate 2 04/15/23 08:02 Oxygen Flow Rate 4 04/15/23 00:05 BMI result Body Mass Index 36.1 Const: General: comfortable, no acute distress, lethargic, poor hygiene and ti red appearing Orientation/consciousness: No patient oriented x3 and lethargic HEENT: Other: Unremarkable Head: Yes normal to inspection Neck: Neck: Yes normal visual inspection Chest: Chest palpation & inspection: normal inspection of the chest Resp: Auscultation: clear to auscultation bilaterally Cardio: Palpation: normal PMI Heart sounds: S1 normal heart sound present, S2 normal heart sound present, no gallops, no murmurs and no rubs GI: Palpation (GI): Soft to palpation Back/Spine/Pelvis: Other: unremarkable Skin: General skin exam: no rashes or lesions noted Neuro: General: No patient oriented x3 Extrem: Other: 2+ edema General: Yes normal to inspection Psych: Mental Status: mental status grossly abnormal Objective Labs and Meds 04/15/23 05:35 04/15/23 05:35 Lab results: Laboratory Results - last 24 hr 04/14/23 04/14/23 04/14/23 22:15 22:15 22:15 WBC 8.7 RBC 2.27 L Hgb 6.6 L* Hct 20.8 L* MCV 91.6 MCH 29.1 MCHC 31.7 RDW 14.2 Plt Count 297 D MPV 11.0 Immature Gran % (Auto) 2.0 H Neut % (Auto) 84.1 H Lymph % (Auto) 7.9 L [place] % (Auto) 5.3 Eos % (Auto) 0.6 Baso % (Auto) 0.1 Lymph # (Auto) 0.7 L [place] # (Auto) 0.5 Eos # (Auto) 0.1 Baso # (Auto) 0.0 Abs Immat Gran (auto) 0.17 H Absolute Neuts (auto) 7.3 Absolute Nucleated RBC 0.000 Nucleated RBC % (auto) 0.0 Sodium 130 L Potassium 4.3 D Chloride 95 L Carbon Dioxide 20 L Anion Gap 19 BUN 148 H Creatinine 3.82 H Estim Creat Clear Calc 12.9 Estimated GFR 11 Random Glucose 146 H Lactic Acid 1.1 Calcium 9.1 Total Bilirubin 0.3 AST 17 ALT 9 Alkaline Phosphatase 72 Troponin I High Sens B-Natriuretic Peptide Total Protein 6.8 Albumin 3.1 L Lipase 42 Stool Occult Blood Blood Type Antibody Screen Crossmatch 04/14/23 04/14/23 04/14/23 22:15 22:19 23:32 WBC RBC Hgb Hct MCV MCH MCHC RDW Plt Count MPV Immature Gran % (Auto) Neut % (Auto) Lymph % (Auto) [place] % (Auto) Eos % (Auto) Baso % (Auto) Lymph # (Auto) [place] # (Auto) Eos # (Auto) Baso # (Auto) Abs Immat Gran (auto) Absolute Neuts (auto) Absolute Nucleated RBC Nucleated RBC % (auto) Sodium Potassium Chloride Carbon Dioxide Anion Gap BUN Creatinine Estim Creat Clear Calc Estimated GFR Random Glucose Lactic Acid Calcium Total Bilirubin AST ALT Alkaline Phosphatase Troponin I High Sens 2554.6 H* D B-Natriuretic Peptide 4305 H Total Protein Albumin Lipase Stool Occult Blood Blood Type A Positive Antibody Screen NEGATIVE Crossmatch See Detail 04/14/23 04/15/23 04/15/23 23:35 05:35 05:35 WBC 8.7 RBC 2.87 L D Hgb 8.5 L D Hct 25.9 L D MCV 90.2 MCH 29.6 MCHC 32.8 RDW 14.4 Plt Count 281 MPV 10.8 Immature Gran % (Auto) 2.1 H Neut % (Auto) 83.5 H Lymph % (Auto) 8.4 L [place] % (Auto) 5.6 Eos % (Auto) 0.2 Baso % (Auto) 0.2 Lymph # (Auto) 0.7 L [place] # (Auto) 0.5 Eos # (Auto) 0.0 Baso # (Auto) 0.0 Abs Immat Gran (auto) 0.18 H Absolute Neuts (auto) 7.3 Absolute Nucleated RBC 0.000 Nucleated RBC % (auto) 0.0 Sodium 131 L Potassium 4.4 Chloride 94 L Carbon Dioxide 20 L Anion Gap 21 H BUN 145 H Creatinine 3.87 H Estim Creat Clear Calc 12.8 Estimated GFR 11 Random Glucose 139 H Lactic Acid Calcium 9.5 Total Bilirubin 0.6 AST 17 ALT 9 Alkaline Phosphatase 77 Troponin I High Sens B-Natriuretic Peptide Total Protein 7.2 Albumin 3.2 L Lipase Stool Occult Blood NEGATIVE Blood Type Antibody Screen Crossmatch 04/15/23 05:35 WBC RBC Hgb Hct MCV MCH MCHC RDW Plt Count MPV Immature Gran % (Auto) Neut % (Auto) Lymph % (Auto) [place] % (Auto) Eos % (Auto) Baso % (Auto) Lymph # (Auto) [place] # (Auto) Eos # (Auto) Baso # (Auto) Abs Immat Gran (auto) Absolute Neuts (auto) Absolute Nucleated RBC Nucleated RBC % (auto) Sodium Potassium Chloride Carbon Dioxide Anion Gap BUN Creatinine Estim Creat Clear Calc Estimated GFR Random Glucose Lactic Acid Calcium Total Bilirubin AST ALT Alkaline Phosphatase Troponin I High Sens 2064.9 H* B-Natriuretic Peptide Total Protein Albumin Lipase Stool Occult Blood Blood Type Antibody Screen Crossmatch ECG Interpretation: EKG with sinus rhythm at 76/Min; voltage criteria for LVH but could be normal variant, lateral downsloping ST with some T inversion. Overall, similar to the previous EKGs. Imaging Radiologist's impression: Impressions Chest X-Ray 04/15/23 00:15 IMPRESSION: 1. Pulmonary vascular congestion and perihilar increased markings possibly fluid overload and/or early congestive heart failure with early interstitial edema. 2. Left lingular and apparent left lung base opacities. Consider pneumonia. Assessment and Plan (1) Metabolic encephalopathy: Status: Acute (2) Acute respiratory failure with hypoxia: Status: Acute (3) Acute exacerbation of CHF (congestive heart failure): Status: Acute (4) CKD (chronic kidney disease): Status: Acute (5) Non-ST elevated myocardial infarction (non-STEMI): Status: Acute (6) Acute on chronic anemia: Status: Acute (7) Acute pulmonary edema: Status: Acute Plan Overall, presumed coronary disease based on prior consultations. In fact it seems that goals of care for where to be addressed with consideration of palliative care that time. However, patient daughter states that it was not pursued. Currently patient is DNR/DNI. 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 Even though the troponins are elevated, they are actually less than the last time. With admission hemoglobin being 6.6, would not start anticoagulation especially as the troponins are less now than before. Intravenous diuretics as tolerated. Otherwise, may remain on beta-blockers, dual antiplatelet therapy, statins. Not suitable for any invasive care. Goals of care again need to be addressed, possibly transition to palliative care. Discussed with . Time Spent With Patient Time: Total time managing care of this patient today ____ minutes. Procedures Date of Service Date of Service: 04/15/23
--- NOTE | 2023-04-15 10:29 | HO.SKINPHOTO ---
Location: buttocks Category: Stage: Length: Width: Depth: cm Location: Category: Stage: Length: Width: Depth: cm Location: Category: Stage: Length: Width: Depth: cm Location: Category: Stage: Length: Width: Depth: cm Location: Category: Stage: Length: Width: Depth: cm Location: Category: Stage: Length: Width: Depth: cm
--- NOTE | 2023-04-15 10:34 | MHC.CM.PN ---
CM spoke with Patient's Daughter/HCP/Emilee @ [phone](Patient with Metabolic Encephalopathy) and addressed IMM with her (original will be mailed certified letter to Emilee and a copy will be placed on the chart). Patient lives in a house with Emilee and she is bed bound at baseline. Patient is active with [facility] and [facility] services; home/resume said services is the goal. CM has initiated and will follow for dc planning. PCP is Dr. Kay Gonzalez.
--- NOTE | 2023-04-15 10:48 | PM.CNNEP ---
History of Present Illness Reason for Consult Consult date: 04/16/23 Reason for consult: NAHID Chief Complaint Chief complaint: CHF, Anemia History of Present Illness Narrative: 83-year-old female with past medical history of diastolic CHF on 2 L of O2 at baseline, CKD stage 4, chronic anemia, HTN, HLD, CAD on medical treatment who presented to the hospital with shortness of breath.? Patient is obtunded, history is obtained mostly family EMR and ED physician.? Brought in by family for hypoxia.? Patient was hypoxic at home per family, satting 85%, they had called her doctor which advised him to increase her oxygen to 6 L, which did not help, they called EMS for further evaluation.? EMS reported hypoxia of 85% despite the 6 L of oxygen.? Also reported to be hypotensive with systolic in the 80s.? Patient's family is also concerned about her lower extremity edema. 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 Mother No problems noted. Surgical History Surgical History History of female sterilization History of shoulder surgery Social History Social History Household Members: Family Household Members Other:: Daughter Housing: Unknown / Unable to assess Do you presently have visiting nurse or other home services: Yes Alcohol intake: never Patient Tobacco Use Status: Never used Tobacco e-Cigarette/Vaping Use: Never Used Second Hand Smoke Exposure: No Advance Directives Date on File: 04/18/21 service: No Current occupational status: retired and disabled Cognitive needs: Yes Hearing needs: No Vision needs: No Meds Allergies Allergy/AdvReac Type Severity Reaction Status Date / Time Iodinated Contrast Media Allergy Unknown UNKNOWN Verified 08/13/22 16:05 [IODINATED CONTRAST MEDIA] Active Medications: Current Medications Acetaminophen (Acetaminophen 325 Mg Tablet) 650 mg PO Q6H PRN PRN Reason: Pain, Mild (Pain Scale 1-3) Aspirin (Aspirin Enteric Coated 81 Mg Tablet.) 81 mg PO DAILY [facility] Last Admin: 04/15/23 08:50 Dose: 81 mg Atorvastatin Calcium (Atorvastatin Calcium 40 Mg Tablet) 40 mg PO BEDTIME [facility] Carvedilol (Carvedilol 6.25 Mg Tablet) 6.25 mg PO BID [facility]; Protocol Last Admin: 04/15/23 08:50 Dose: 6.25 mg Clopidogrel Bisulfate (Clopidogrel Bisulfate 75 Mg Tablet) 75 mg PO DAILY [facility] Last Admin: 04/15/23 08:50 Dose: 75 mg Docusate Sodium (Docusate Sodium 100 Mg Capsule) 100 mg PO BID [facility] Last Admin: 04/15/23 08:50 Dose: 100 mg Ferrous Sulfate (Ferrous Sulfate 324 Mg Tablet.) 324 mg PO DAILY [facility] Last Admin: 04/15/23 08:50 Dose: 324 mg Heparin Sodium (Porcine) (Heparin Sodium,Porcine 5,000 Unit/Ml Vial) 5,000 unit SUBCUT BID [facility] Last Admin: 04/15/23 08:51 Dose: 5,000 unit Bumetanide 25 mg/ IV (Miscellaneous Supplies) 100 mls @ 4 mls/hr IVCONT .Q24H [facility] Last Admin: 04/15/23 07:46 Dose: 1 mg/hr, 4 mls/hr Ondansetron HCl (Ondansetron Hcl 4 Mg/2 Ml Vial) 4 mg IVPUSH Q8H PRN PRN Reason: Nausea and Vomiting Pregabalin (Pregabalin 50 Mg Capsule) 50 mg PO BID [facility] Last Admin: 04/15/23 08:50 Dose: 50 mg Sodium Chloride (0.9 % Sodium Chloride Flush 3 Ml Syringe) 3 ml IVFLUSH QSHIFT [facility] Last Admin: 04/15/23 07:47 Dose: Not Given Home Medications Medication Instructions Recorded Confirmed Last Taken Type cyanocobalamin (vitamin B-12) 1,000 mcg PO BEDTIME 08/17/22 04/15/23 08/16/22 History 1,000 mcg tablet (Vitamin B-12) multivitamin with folic acid 400 1 tab PO DAILY 08/17/22 04/15/23 08/16/22 History mcg tablet ferrous sulfate 325 mg (65 mg 1 tab PO DAILY 03/07/23 04/15/23 Unknown History iron) tablet (FeroSul) sodium phosphates 19 gram-7 118 ml [place] DAILY PRN Constipation 03/07/23 04/15/23 Unknown History gram/118 mL enema (Fleet Enema) Physical Exam Vital Signs: Last Vital Signs Temp 97.9 F 04/15/23 08:02 Pulse 78 04/15/23 08:02 Resp 20 04/15/23 08:02 BP 146/62 H 04/15/23 08:02 Pulse Ox 91 L 04/15/23 08:02 O2 Del Method Nasal Cannula 04/15/23 08:02 O2 Flow Rate 2 04/15/23 08:02 Oxygen Flow Rate 4 04/15/23 00:05 BMI result Body Mass Index 36.1 Ill appearing Neck is supple Lung: Air entry equal with crackles Heart: S1,S2, normal. No rub Abd: Soft. BS + NS : Alert.No asterexis Ext: 2+ edema Results Lab Results 04/15/23 05:35 04/15/23 05:35 Lab results: Chemistry 04/14/23 04/15/23 22:15 05:35 Sodium 130 L 131 L Potassium 4.3 D 4.4 Carbon Dioxide 20 L 20 L BUN 148 H 145 H Creatinine 3.82 H 3.87 H Calcium 9.1 9.5 Hematology 04/14/23 04/15/23 22:15 05:35 WBC 8.7 8.7 Hgb 6.6 L* 8.5 L D Plt Count 297 D 281 Assessment and Plan (1) CHF (congestive heart failure): Status: Acute (2) CKD (chronic kidney disease) stage 4, GFR 15-29 ml/min: Status: Acute (3) Anemia: Status: Acute Plan elderly woman with advanced renal failure. She is approaching ESRD. If the family agrees we will consider renal replacement therapy. Anemia is multifactorial. 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 We will restart Epogen may need transfusion. Fluid overload. Keep output more than intake. Agree with IV Lasix. Time Spent With Patient Time: Total time managing care of this patient today ____ minutes. Procedures Date of Service Date of Service: 04/16/23
--- NOTE | 2023-04-15 11:31 | PC.NURSE ---
call to pharmacy for procrit.
--- NOTE | 2023-04-15 12:18 | P.PNIM_ITS ---
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 Review of Systems General no headache no dizziness no fever chills. CVS no chest pain, no palpitation. Respiratory no cough no sob Gastrointestinal no nausea, no vomiting, no abdominal pain all other system reviewed and negative Physical Exam Vital Signs: Vital Signs: Last Vital Signs Temp 97.6 F 04/15/23 11:41 Pulse 69 04/15/23 11:41 Resp 16 04/15/23 11:41 BP 150/69 H 04/15/23 11:41 Pulse Ox 93 04/15/23 11:41 O2 Del Method Nasal Cannula 04/15/23 11:41 O2 Flow Rate 2 04/15/23 11:41 Oxygen Flow Rate 4 04/15/23 00:05 BMI result Body Mass Index 36.1 Const: Other: General awake alert, resting comfortably in no acute distress. Neck supple, no JVD. CVS regular rate rhythm, Respiratory lungs clear to auscultation, no respiratory distress, no wheeze, no rales. Gastrointestinal abdomen soft, nontender, bowel sounds audible Extremities b/l pitting edema. Neuro nonfocal ,moving all 4 extremity speech clear. Skin no rash Objective Data Active Medications Acetaminophen (Acetaminophen 325 Mg Tablet) 650 mg PO Q6H PRN PRN Reason: Pain, Mild (Pain Scale 1-3) Aspirin (Aspirin Enteric Coated 81 Mg Tablet.) 81 mg PO DAILY [facility] Last Admin: 04/15/23 08:50 Dose: 81 mg Documented By: LISA Atorvastatin Calcium (Atorvastatin Calcium 40 Mg Tablet) 40 mg PO BEDTIME [facility] Carvedilol (Carvedilol 6.25 Mg Tablet) 6.25 mg PO BID [facility]; Protocol Last Admin: 04/15/23 08:50 Dose: 6.25 mg Documented By: LISA Clopidogrel Bisulfate (Clopidogrel Bisulfate 75 Mg Tablet) 75 mg PO DAILY [facility] Last Admin: 04/15/23 08:50 Dose: 75 mg Documented By: LISA Docusate Sodium (Docusate Sodium 100 Mg Capsule) 100 mg PO BID [facility] Last Admin: 04/15/23 08:50 Dose: 100 mg Documented By: LISA Ferrous Sulfate (Ferrous Sulfate 324 Mg Tablet.Dr) 324 mg PO DAILY [facility] Last Admin: 04/15/23 08:50 Dose: 324 mg Documented By: LISA Heparin Sodium (Porcine) (Heparin Sodium,Porcine 5,000 Unit/Ml Vial) 5,000 unit SUBCUT BID [facility] Last Admin: 04/15/23 08:51 Dose: 5,000 unit Documented By: LISA Bumetanide 25 mg/ IV (Miscellaneous Supplies) 100 mls @ 4 mls/hr IVCONT .Q24H [facility] Last Admin: 04/15/23 07:46 Dose: 1 mg/hr, 4 mls/hr Documented By: LISA Ondansetron HCl (Ondansetron Hcl 4 Mg/2 Ml Vial) 4 mg IVPUSH Q8H PRN PRN Reason: Nausea and Vomiting Pregabalin (Pregabalin 50 Mg Capsule) 50 mg PO BID [facility] Last Admin: 04/15/23 08:50 Dose: 50 mg Documented By: LISA Sodium Chloride (0.9 % Sodium Chloride Flush 3 Ml Syringe) 3 ml IVFLUSH QSHIFT [facility] Last Admin: 04/15/23 07:47 Dose: Not Given Documented By: LISA Non-Admin Reason: IV Running Labs 04/15/23 05:35 04/15/23 05:35 Labs: Laboratory Results - last 24 hr 04/14/23 04/14/23 04/14/23 22:15 22:15 22:15 MCV 91.6 MCH 29.1 MCHC 31.7 RDW 14.2 Plt Count 297 D MPV 11.0 Immature Gran % (Auto) 2.0 H Neut % (Auto) 84.1 H Lymph % (Auto) 7.9 L Pitkin % (Auto) 5.3 Eos % (Auto) 0.6 Baso % (Auto) 0.1 Lymph # (Auto) 0.7 L Pitkin # (Auto) 0.5 Eos # (Auto) 0.1 Baso # (Auto) 0.0 Abs Immat Gran (auto) 0.17 H Absolute Neuts (auto) 7.3 Absolute Nucleated RBC 0.000 Nucleated RBC % (auto) 0.0 Anion Gap 19 Estim Creat Clear Calc 12.9 Estimated GFR 11 Random Glucose 146 H Lactic Acid 1.1 Calcium 9.1 Total Bilirubin 0.3 AST 17 ALT 9 Alkaline Phosphatase 72 B-Natriuretic Peptide Total Protein 6.8 Albumin 3.1 L Lipase 42 Stool Occult Blood Blood Type Antibody Screen Crossmatch 04/14/23 04/14/23 04/14/23 22:19 23:32 23:35 MCV MCH MCHC RDW Plt Count MPV Immature Gran % (Auto) Neut % (Auto) Lymph % (Auto) Pitkin % (Auto) Eos % (Auto) Baso % (Auto) Lymph # (Auto) Pitkin # (Auto) Eos # (Auto) Baso # (Auto) Abs Immat Gran (auto) Absolute Neuts (auto) Absolute Nucleated RBC Nucleated RBC % (auto) Anion Gap Estim Creat Clear Calc Estimated GFR Random Glucose Lactic Acid Calcium Total Bilirubin AST ALT Alkaline Phosphatase B-Natriuretic Peptide 4305 H Total Protein Albumin Lipase Stool Occult Blood NEGATIVE Blood Type A Positive Antibody Screen NEGATIVE Crossmatch See Detail 04/15/23 04/15/23 05:35 05:35 MCV 90.2 MCH 29.6 MCHC 32.8 RDW 14.4 Plt Count 281 MPV 10.8 Immature Gran % (Auto) 2.1 H Neut % (Auto) 83.5 H Lymph % (Auto) 8.4 L Pitkin % (Auto) 5.6 Eos % (Auto) 0.2 Baso % (Auto) 0.2 Lymph # (Auto) 0.7 L Pitkin # (Auto) 0.5 Eos # (Auto) 0.0 Baso # (Auto) 0.0 Abs Immat Gran (auto) 0.18 H Absolute Neuts (auto) 7.3 Absolute Nucleated RBC 0.000 Nucleated RBC % (auto) 0.0 Anion Gap 21 H Estim Creat Clear Calc 12.8 Estimated GFR 11 Random Glucose 139 H Lactic Acid Calcium 9.5 Total Bilirubin 0.6 AST 17 ALT 9 Alkaline Phosphatase 77 B-Natriuretic Peptide Total Protein 7.2 Albumin 3.2 L Lipase Stool Occult Blood Blood Type Antibody Screen Crossmatch Assessment and Plan (1) Metabolic encephalopathy: Status: Acute (2) CHF (congestive heart failure): Status: Acute (3) Acute on chronic anemia: Status: Acute Plan 82F [place]ruguayan-speaking with PMH of dCHF on 2L O2, CKD IV, HTN, HLD, CAD on medical tx was brought in from home due shortness of breath and hypoxia at home patient finger oximetry was 85%, daughter called the doctor he advised to increase oxygen to 6 L but since it did not help family called EMS, EMS found oxygenation of 85% on 6 L and blood pressure systolic in 80s, in ED patient blood pressure was stable oxygenation was 95% on 4 L of oxygen she had hemoglobin of 6.6, creatinine of 3.82 around her recent baseline troponin of 2554 and being NPO 4300 patient admitted to [facility] with a diagnosis of a acute anemia and acute on chronic congestive heart failure. Acute on chronic hypoxic respiratory failure 2/2 acute on chronic diastolic CHF exacerbation Continue IV bumex 1mg /hr drip - increased to 1mg/hr, given 10mg metolazone 03/11/23 back to baseline 2L home o2 Elevated Trop with presumed CAD seen by Cardiology they recommend medical management, due to multiple comorbidi ties including significant anemia, significant renal impairment. felt not a suitable candidate for invasive management troponins on admission 2554 better than prior troponins of 8003 echo today showed EF 30%, grade 2 moderate diastolic dysfunction with evidence of regional wall motion abnormality no valvular pathology noted, there is a small located pericardial effusion overlying the left ventricle EKG showed ST and T-wave abnormality consider lateral ischemia continue ASA, Coreg, Plavix, and Statin acute metabolic encephalopathy likely due to hypoxia resolved. Acute on chronic symptomatic anemia s/p 1 units prbc, hematocrit improved from 20.8-25.9 spoke with Nephrology will likely need Procrit stool guaiac negative, previous iron studies not consistent with iron deficiency anemia CKD 4 will consult Nephrology, monitor BMP while being diuresed HTN continue Coreg 6.25 b.i.d. Obesity recommend low-calorie diet. DVT PPx heparin subQ b.i.d. DNR/ DNI reason for continued hospitalization:iv diuresis Time Spent With Patient Time: Total time managing care of this patient today ____ minutes. Quality Stroke Does the patient have a stroke diagnosis?: No VTE Prior VTE?: No VTE Risk Level:: Medical - moderate - high VTE Device Contraindication: Treatment Not Indicated VTE Drug Contraindication: N/A - Med Ordered
--- NOTE | 2023-04-15 12:38 | PC.NURSE ---
ch placed per order; 16 fr; pt tolerated well; draining clear yellow urine.
--- NOTE | 2023-04-15 15:15 | PC.NURSE ---
report given to [facility] [place] leeazar.
[2023-04-15] MEDS: Atorvastatin Calcium 40 MG TABLET PO (21:42)
[2023-04-16] VITALS: BP 140/62; PULSE 80; RESP 16; TEMP 36.6; O2SAT 93
--- NOTE | 2023-04-16 03:36 | PM.EVENT ---
Event Note Date of Service: 04/16/23 Event Note: Blood cultures positive for Gram-positive cocci, patient started on vancomycin, repeat cultures Time Spent With Patient Time: Total time managing care of this patient today ____ minutes.
[2023-04-16 03:40] VITALS: BP 139/63; PULSE 80; RESP 20; TEMP 36.3; O2SAT 92
[2023-04-16 04:11] LABS: Hematocrit 26.1 % (37.0-47.0); Hemoglobin 8.5 g/dl (12.0-16.0); Mean Corpuscular HGB Conc 32.6 g/dl (31.0-35.0); Mean Corpuscular Hemoglobin 29.7 pg (27.0-33.0); Mean Corpuscular Volume 91.3 fL (80.0-98.0); Mean Platelet Volume 11.1 fL (9.4-12.3); Platelet Count 271 X10*3/uL (160-400); Red Blood Count 2.86 X10*6/uL (4.20-5.50); Red Cell Distribution Width 14.6 % (11.0-16.0); White Blood Count 9.4 X10*3/uL (4.8-10.8)
[2023-04-16] MEDS: vancomycin/NS 2,000 MG/500 ML PLAST..BAG 250 MG IV (04:14)
[2023-04-16 04:33] LABS: Anion Gap 23 (12-20); Blood Urea Nitrogen 147 mg/dL (9-16); Calcium 9.8 mg/dL (8.4-10.2); Carbon Dioxide 19 mmol/L (22-29); Chloride 94 mmol/L (96-108); Creatinine Clr Calc Pharmacy 12.8; Estimated Glomerular Filt Rate 11; Glucose Random 131 mg/dL (60-115); Potassium 4.6 mmol/L (3.3-5.1); Sodium 131 mmol/L (135-145)
[2023-04-16 04:47] LABS: B Type Natriuretic Peptide 8127 pg/mL (<100)
[2023-04-16 05:58] VITALS: BMI 35.5
[2023-04-16] MEDS: Acetaminophen 325 MG TABLET 650 MG PO ×2 (06:09→13:35)
--- NOTE | 2023-04-16 07:16 | PHA.PROG ---
Addendum entered by Ivy Rodriguez [facility] 04/17/23 11:33: dr fritz then restarted. new level due 04/19 @0900 Original Note: Admission Date/Time: April 14, 2023 23:57 Indication: BACTEREMIA Weight in k.8 kg Serum Creatinine - Last 168 Hours 04/14/23 04/15/23 04/16/23 22:15 05:35 03:58 Creatinine 3.82 H 3.87 H 3.76 H Estimated CrCl and GFR - Last 168 Hours 04/14/23 04/15/23 04/16/23 22:15 05:35 03:58 Estim Creat Clear Calc 12.9 12.8 12.8 Estimated GFR 11 11 11 Vancomycin Loading Dose: 2000 Current Vancomycin Dosing Regimen: 750 Q 48 Vancomycin Monitoring using AUC goal of 400 - 600 range with trough as surrogate marker: 578 Date and Time for next Vancomycin Level to be drawn: 04/20 @ 0500 Pharmacist Comments on Vancomycin Plan: Vancomycin dosing will take advantage of [employer] as a clinical decision support tool that uses Bayesian modeling to calculate individual patient's pharmacokinetic parameters and forecast the patient's drug concentration time course with the target goal AUC 24 range of 400 - 600 mg/L/hr.
--- NOTE | 2023-04-16 07:20 | PC.NURSE ---
0630; Patient was on 2 -3 liters oxygen nasal cannula begining of shift and throughout most of the night , about 0500 O2 sats started dropping, respiratory called, respiratory placed patient on oxymask, patient's O2 sats 92% on 5 liters via oxymask. Briefly after, patient's O2 sats dropping again, lung sounds are with crackles. Respiratory advised to increase to 15 liters oxymask,; and oxygen at 90% right now. Patient has been on bumex drip 1 mg/hr with output of 400 mls at 2200 and [address] Durant notified. Orders for chest xray, bnp
[2023-04-16] MEDS: Furosemide 100 MG/10 ML VIAL 60 MG IVPUSH (07:26)
[2023-04-16 07:27] VITALS: BP 141/67; PULSE 77; RESP 20; TEMP 36.4; O2SAT 92
[2023-04-16] MEDS: 0.9 % Sodium Chloride Flush 3 ML SYRINGE IVFLUSH ×2 (07:27→15:26)
[2023-04-16] MEDS: Piperacillin Sodium/Tazobactam 2.25 GM in 0.9 % Sodium Chloride 50 ML IV ×2 (07:27→13:35)
[2023-04-16] MEDS: Bumetanide 25 MG in Container,Empty 0 ML 4 MG IVCONT (07:27)
[2023-04-16] MEDS: Pregabalin 50 MG CAPSULE PO (07:33)
[2023-04-16] MEDS: Clopidogrel Bisulfate 75 MG TABLET PO (07:33)
[2023-04-16] MEDS: Docusate Sodium 100 MG CAPSULE PO (07:33)
[2023-04-16] MEDS: carvediloL 6.25 MG TABLET PO (07:33)
[2023-04-16] MEDS: Ferrous Sulfate 324 MG TABLET.DR PO (07:34)
[2023-04-16] MEDS: Aspirin Enteric Coated 81 MG TABLET.DR PO (07:34)
[2023-04-16] MEDS: Heparin Sodium,Porcine 5,000 UNIT/ML VIAL 5000 UNIT SUBCUT (07:34)
--- NOTE | 2023-04-16 10:05 | PM.PNCARD ---
Subjective Subjective Date of Service: 04/16/23 Interval history: She looks quite ill. On OxyMask. Discussed with patient using hourly sign language interpreter. In spite of her illness, she states she actually feels okay. Denies any shortness of breath. Review of Systems Review of Systems Yes all other systems are reviewed and are negative Constitutional: Reports as per HPI and Reports no additional constitutional complaints Eyes: Reports as per HPI and Denies no additional eye complaints Denies system reviewed and no additional complaints, except as documented and Reports as per HPI Cardiovascular: Reports as per HPI, Reports no additional cardiovascular complaints, Denies acrocyanosis, Denies cool extremities, Denies chest pain, Denies leg edema, Denies lightheadedness, Denies palpitations and Denies dyspnea Respiratory: Reports as per HPI, Denies no additional respiratory complaints and Denies dyspnea Gastrointestinal: Reports as per HPI and Denies no additional gastrointestinal complaints Genitourinary: Reports as per HPI Musculoskeletal: Reports no additional musculoskeletal complaints and Reports as per HPI Skin/Breast: Reports system reviewed and no additional complaints, except as docu Reports system reviewed and no additional complaints, except as documented and Reports as per HPI Psychiatric: Reports no additional psychiatric complaints and Reports as per HPI Endocrine: Reports no additional endocrine complaints, Reports as per HPI and Denies palpitations Hematologic/Lymphatic: Reports no additional hematologic/lymphatic complaints and Reports as per HPI Allergic/Immunologic: Reports no additional allergic/immunologic complaints and Reports as per HPI Physical Exam Vital Signs: Last Vital Signs Temp 97.5 F 04/16/23 07:27 Pulse 77 04/16/23 07:27 Resp 20 04/16/23 07:27 BP 141/67 H 04/16/23 07:27 Pulse Ox 92 04/16/23 07:27 O2 Del Method Oxymask 04/16/23 07:27 O2 Flow Rate 15 04/16/23 07:27 Oxygen Flow Rate 4 04/15/23 00:05 BMI result Body Mass Index 35.5 Const General: comfortable, no acute distress, ill appearing, lethargic and tired appearing Orientation/consciousness: No patient oriented x3 and lethargic HEENT Other: Unremarkable Head: Yes normal to inspection Neck Neck: Yes normal visual inspection Chest Chest palpation & inspection: normal inspection of the chest Resp Other: Difficult to examine as she is not able to turn. Limited auscultation. Cardio Palpation: normal PMI Heart sounds: S1 normal heart sound present, S2 normal heart sound present, no gallops, no murmurs and no rubs GI Palpation (GI): Soft to palpation Back/Spine/Pelvis Other: unremarkable Skin General skin exam: no rashes or lesions noted Neuro General: No patient oriented x3 Extrem General: Yes normal to inspection Psych Mental Status: mental status grossly abnormal Objective Labs and Meds 04/16/23 03:58 04/16/23 03:58 Lab results: Laboratory Results - last 24 hr 04/16/23 04/16/23 04/16/23 03:58 03:58 03:58 WBC 9.4 RBC 2.86 L Hgb 8.5 L Hct 26.1 L MCV 91.3 MCH 29.7 MCHC 32.6 RDW 14.6 Plt Count 271 MPV 11.1 Absolute Nucleated RBC 0.000 Nucleated RBC % (auto) 0.0 Sodium 131 L Potassium 4.6 Chloride 94 L Carbon Dioxide 19 L Anion Gap 23 H BUN 147 H Creatinine 3.76 H Estim Creat Clear Calc 12.8 Estimated GFR 11 Random Glucose 131 H Calcium 9.8 B-Natriuretic Peptide 8127 H Imaging Radiologist's impression: Impressions Chest X-Ray 04/16/23 07:48 IMPRESSION: Likely worsening vascular congestion and increasing right pleural effusion. Persistent left base opacity, likely effusion, underlying consolidation not excluded. Progress Note: A&P Assessment and plan (1) Acute pulmonary edema: Status: Acute (2) Acute respiratory failure with hypoxia: Status: Acute (3) Acute exacerbation of CHF (congestive heart failure): Status: Acute (4) Metabolic encephalopathy: Status: Acute (5) CKD (chronic kidney disease): Status: Acute (6) Non-ST elevated myocardial infarction (non-STEMI): Status: Acute (7) Acute on chronic anemia: Status: Acute Plan Overall, multiple comorbidities primarily coronary disease, acute on chronic systolic/diastolic left-sided heart failure, anemia, NSTEMI, chronic kidney disease, frailty, advanced age. She seems to be a significant amount of supplemental oxygen. Her troponins are high but they seem to be chronically high on the current values are actually less than the last time. Less likely she had new NSTEMI. Most likely ongoing myocardial stress from comorbidities. On Bumex drip. Overall, high likelihood of further decompensation and . Do not recommend aggressive care as it will not change outcome. Suggest pursuing palliative care route/hospice. Discussed with Dr. Salas. Time Spent With Patient Time: Total time managing care of this patient today 45 minutes. This includes time spent in review of chart, laboratory data, imaging studies, review of telemetry, counseling patient, family, discussion with hospitalist, RN, documentation, coordination of care. Progress Note: Quality Stroke Does the patient have a stroke diagnosis?: No Procedures Date of Service Date of Service: 04/16/23
--- NOTE | 2023-04-16 10:07 | W.PM.CCCN ---
History of Present Illness Data of Consult Service Date: 04/16/23 Requesting physician: Umm Salas Primary Care Provider: Kay Mata MD HPI Reason for consult: dyspnea and altered mental status 83-year-old morbidly obese female presents with acute on chronic respiratory failure marked increase in work of breathing and I was brought up by the attending and the patient was very difficult to arouse but did respond ultimately to being shaken as well as loud voice and clearly reviewing her laboratories the woman is uremic with worsening azotemia and is currently on a Bumex drip which is not very well productive and she is tachypneic at rest with significant diaphragmatic effort and markedly prolonged expiratory time and is consistent certainly with CHF I reviewed her echocardiogram from yesterday with a global ejection fraction 30% with global hypokinesis but anterior 0 apical akinesis and right ventricle is normal as a size and there is no evidence of any significant pericardial fluid EKG is normal sinus rhythm with a left IVCD rather prolonged at 116 milliseconds with diffuse nonspecific ST-T changes Review of Systems Review of Systems: Yes Unobtainable due to mental status [facility] Past Medical History Medical History (Updated 04/16/23 @ 10:15 by Ekaterina Perez MD) Abscess of forearm, right Acute on chronic diastolic heart failure Acute respiratory failure with hypoxia Anemia B12 deficiency Chronic renal insufficiency CKD (chronic kidney disease) Congestive heart failure Diabetes Femoral artery stenosis Gram-positive bacteremia Heart failure and kidney disease due to high blood pressure High cholesterol Hypertension Hypoxia Lower extremity edema Psoriasis of scalp PVD (peripheral vascular disease) Family History Family History Father No problems noted. Mother No problems noted. Surgical History Surgical History History of female sterilization History of shoulder surgery Social History Social History Household Members: Family Household Members Other:: Daughter Housing: Unknown / Unable to assess Do you presently have visiting nurse or other home services: Yes Alcohol intake: never Patient Tobacco Use Status: Never used Tobacco e-Cigarette/Vaping Use: Never Used Second Hand Smoke Exposure: No Advance Directives Date on File: 04/18/21 service: No Current occupational status: retired and disabled Cognitive needs: Yes Hearing needs: No Vision needs: No Meds Allergies Allergy/AdvReac Type Severity Reaction Status Date / Time Iodinated Contrast Media Allergy Unknown UNKNOWN Verified 08/13/22 16:05 [IODINATED CONTRAST MEDIA] Active Medications: Current Medications Acetaminophen (Acetaminophen 325 Mg Tablet) 650 mg PO Q6H PRN PRN Reason: Pain, Mild (Pain Scale 1-3) Last Admin: 04/16/23 06:09 Dose: 650 mg Aspirin (Aspirin Enteric Coated 81 Mg Tablet.) 81 mg PO DAILY [facility] Last Admin: 04/16/23 07:34 Dose: 81 mg Atorvastatin Calcium (Atorvastatin Calcium 40 Mg Tablet) 40 mg PO BEDTIME [facility] Last Admin: 04/15/23 21:42 Dose: 40 mg Carvedilol (Carvedilol 6.25 Mg Tablet) 6.25 mg PO BID [facility]; Protocol Last Admin: 04/16/23 07:33 Dose: 6.25 mg Clopidogrel Bisulfate (Clopidogrel Bisulfate 75 Mg Tablet) 75 mg PO DAILY [facility] Last Admin: 04/16/23 07:33 Dose: 75 mg Docusate Sodium (Docusate Sodium 100 Mg Capsule) 100 mg PO BID [facility] Last Admin: 04/16/23 07:33 Dose: 100 mg Ferrous Sulfate (Ferrous Sulfate 324 Mg Tablet.) 324 mg PO DAILY [facility] Last Admin: 04/16/23 07:34 Dose: 324 mg Heparin Sodium (Porcine) (Heparin Sodium,Porcine 5,000 Unit/Ml Vial) 5,000 unit SUBCUT BID [facility] Last Admin: 04/16/23 07:34 Dose: 5,000 unit Bumetanide 25 mg/ IV (Miscellaneous Supplies) 100 mls @ 4 mls/hr IVCONT .Q24H [facility] Last Admin: 04/16/23 07:27 Dose: 1 mg/hr, 4 mls/hr Piperacillin Sod/Tazobactam (Sod 2.25 gm/ Sodium Chloride) 50 mls @ 100 mls/hr IV Q6H [facility] Last Infusion: 04/16/23 08:02 Dose: Infused Vancomycin HCl 750 mg/ Sodium (Chloride) 265 mls @ 265 mls/hr IV Q48H [facility] Ondansetron HCl (Ondansetron Hcl 4 Mg/2 Ml Vial) 4 mg IVPUSH Q8H PRN PRN Reason: Nausea and Vomiting Pharmacy Consult (Consult Rx Vancomycin Dosing) 1 each MISCELLANE DAILY PRN PRN Reason: Consult order Pregabalin (Pregabalin 50 Mg Capsule) 50 mg PO BID [facility] Last Admin: 04/16/23 07:33 Dose: 50 mg Sodium Chloride (0.9 % Sodium Chloride Flush 3 Ml Syringe) 3 ml IVFLUSH QSHIFT [facility] Last Admin: 04/16/23 07:27 Dose: 3 ml Home Medications Medication Instructions Recorded Confirmed Last Taken Type cyanocobalamin (vitamin B-12) 1,000 mcg PO BEDTIME 08/17/22 04/15/23 08/16/22 History 1,000 mcg tablet (Vitamin B-12) multivitamin with folic acid 400 1 tab PO DAILY 08/17/22 04/15/23 08/16/22 History mcg tablet ferrous sulfate 325 mg (65 mg 1 tab PO DAILY 03/07/23 04/15/23 Unknown History iron) tablet (FeroSul) sodium phosphates 19 gram-7 118 ml UT DAILY PRN Constipation 03/07/23 04/15/23 Unknown History gram/118 mL enema (Fleet Enema) Physical Exam Vital Signs: Vital Signs: Last Vital Signs Temp 97.5 F 04/16/23 07:27 Pulse 77 04/16/23 07:27 Resp 20 04/16/23 07:27 BP 141/67 H 04/16/23 07:27 Pulse Ox 92 04/16/23 07:27 O2 Del Method Oxymask 04/16/23 07:27 O2 Flow Rate 15 04/16/23 07:27 Oxygen Flow Rate 4 04/15/23 00:05 BMI result Body Mass Index 35.5 very lethargic but does arouse diminished bilateral carotid upstrokes consistent with poor stroke work reserve and positive neck vein distension bilateral and expiratory wheezing abdomen soft with no organomegaly no acrocyanosis Results Labs 04/16/23 03:58 04/16/23 03:58 Labs: Short CBC 04/16/23 Range/Units 03:58 WBC 9.4 (4.8-10.8) X10*3/uL Hgb 8.5 L (12.0-16.0) g/dl Hct 26.1 L (37.0-47.0) % Plt Count 271 (160-400) X10*3/uL BMP 04/16/23 03:58 Sodium 131 L Potassium 4.6 Chloride 94 L Carbon Dioxide 19 L BUN 147 H Creatinine 3.76 H Calcium 9.8 Microbiology Microbiology Results: Microbiology 04/14/23 22:15 Blood - Venous Blood Culture - Preliminary Coag negative Staphylococcus 04/14/23 22:15 Blood - Venous Blood Culture - Preliminary No growth after 24 hours. Assessment and Plan (1) Metabolic encephalopathy: Status: Acute (2) Acute on chronic anemia: Status: Acute (3) CHF (congestive heart failure): Status: Acute (4) Bedridden: Status: Acute (5) Asthma: Status: Acute (6) Metabolic acidosis: Status: Acute (7) Heart failure and kidney disease due to high blood pressure: Status: Acute (8) CHF (congestive heart failure), NYHA class IV: Status: Acute (9) Elevated troponin I level: Status: Acute (10) CKD (chronic kidney disease) stage 4, GFR 15-29 ml/min: Status: Acute (11) Acute pulmonary edema: Status: Acute (12) Symptomatic anemia: Status: Acute (13) Diabetes: Qualifiers: Diabetes mellitus type: type 2 Diabetes mellitus alf insulin use: 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 Diabetes mellitus complication status: with other specified complication Qualified Code(s): E11.69 - Type 2 diabetes mellitus with other specified complication Status: Acute (14) Acute kidney injury superimposed on chronic kidney disease: Status: Acute (15) MRSA cellulitis: Status: Acute (16) MSSA bacteremia: Status: Acute (17) PVD (peripheral vascular disease): Status: Acute Plan 0 in reviewing her echo and laboratory I believe the altered mental status is based on uremia and her persistent heart failure is because of very poor GFR and the recommendation here I think to take care of all these ills is that she needs dialysis should have a PermCath placed dialysis should be initiated it would improve her volume of course which will then improve her congestive heart failure and then she would be a candidate potentially for drugs that would improve her myocardial prognosis such as lisinopril losartan etc. Time Spent With Patient Time: Total time managing care of this patient today 60____ minutes.
[2023-04-16 10:38] VITALS: BMI 35.5
--- NOTE | 2023-04-16 10:48 | P.PNNP_ITS ---
Subjective Subjective Date of Service: 04/16/23 Interval history: Events noted. Cardiology note appreciated. Physical Exam 2 Vital Signs: Vital Signs: Last Vital Signs Temp 97.5 F 04/16/23 07:27 Pulse 77 04/16/23 07:27 Resp 20 04/16/23 07:27 BP 141/67 H 04/16/23 07:27 Pulse Ox 92 04/16/23 07:27 O2 Del Method Oxymask 04/16/23 07:27 O2 Flow Rate 15 04/16/23 07:27 Oxygen Flow Rate 4 04/15/23 00:05 BMI result Body Mass Index 35.5 Ill-appearing Neck is supple Lung: Air entry equal bilateral crackles Heart: S1,S2, normal. No rub Abd: Soft. BS + NS : Lethargic.No asterexis Objective Data Labs 04/16/23 03:58 04/16/23 03:58 Labs: Laboratory Results - last 24 hr 04/16/23 04/16/23 04/16/23 03:58 03:58 03:58 WBC 9.4 RBC 2.86 L Hgb 8.5 L Hct 26.1 L MCV 91.3 MCH 29.7 MCHC 32.6 RDW 14.6 Plt Count 271 MPV 11.1 Absolute Nucleated RBC 0.000 Nucleated RBC % (auto) 0.0 Sodium 131 L Potassium 4.6 Chloride 94 L Carbon Dioxide 19 L Anion Gap 23 H BUN 147 H Creatinine 3.76 H Estim Creat Clear Calc 12.8 Estimated GFR 11 Random Glucose 131 H Calcium 9.8 B-Natriuretic Peptide 8127 H Microbiology Microbiology Results: Microbiology 04/14/23 22:15 Blood - Venous Blood Culture - Preliminary Coag negative Staphylococcus 04/14/23 22:15 Blood - Venous Blood Culture - Preliminary No growth after 24 hours. Procedures Date of Service Date of Service: 04/16/23 Assessment & Plan Assessment and plan (1) CHF (congestive heart failure): Status: Acute (2) CKD (chronic kidney disease) stage 5, GFR less than 15 ml/min: Status: Acute Plan Elderly woman with advanced renal failure approaching end-stage renal disease currently has fluid overload. At this point she will require dialysis. However she has refused dialysis in the past. If the family and the patient agreed for dialysis I will arrange for dialysis. Otherwise I would encourage hospice or or comfort measures. Optimize hemoglobin. Continue with diuretics and keep him in negative fluid balance. Time Spent With Patient Time: Total time managing care of this patient today ____ minutes. Progress Note: Quality Stroke Does the patient have a stroke diagnosis?: No
[2023-04-16 10:49] LABS: VBG HCO3 21 mmol/L (22-26); VBG pCO2 26 mmHg; VBG pO2 199 mmHg
[2023-04-16 10:50] LABS: Venous Blood Gas Refer to POC result
[2023-04-16 10:56] VITALS: BP 151/70; PULSE 75; RESP 20; TEMP 36.4; O2SAT 90
--- NOTE | 2023-04-16 12:57 | MHC.CM.PN ---
This CM spoke with pts daughter/HCP Emilee in regard to her mothers declining condition. Emilee states that her mother did not want dialysis and they would not like to pursue any further aggressive treatment options, and would like her care to be focused on maintaining her comfort. Emilee states she would like to take her mother home on hospice care if they are able to. Emilee then asked for this CM to call her [id number] Jade at [phone] as Jade will then explain things to Emilee more in Nepali. This CM called Jade and spoke about the direction of care the family would like for the pt, and she agrees with Emilee that the doctors have stated there is not much they can do to help the pt heal and are not interested in pursing any further aggressive treatment options, and they would like to focus on maintaining her comfort. updated. Referral placed to [facility].
--- NOTE | 2023-04-16 13:37 | MHC.CM.PN ---
Patient was active with home care from [facility]; CM called [facility], who has indicated that they do not do Hospice services. A referral was made to [facility] who will arrange for a Hospice Informational tomorrow at bedside with Daughter/HCP/Emilee and Patient;s Grand Daughter-in Law via phone. CM will follow.
--- NOTE | 2023-04-16 14:15 | HO.PM.IMPN ---
Subjective Subjective Date of Service: 04/17/23 Interval History: Acute hypoxemic respiratory failure,nahid Review of Systems worsening sob/hypoxia overnight-placed in 15 liter oxygen. no cough or sputum no fevers does not answer many questions -says sob seems worsening Physical Exam Vital Signs: Vital Signs: Last Vital Signs Temp 97.6 F 04/16/23 10:56 Pulse 75 04/16/23 10:56 Resp 20 04/16/23 10:56 BP 151/70 H 04/16/23 10:56 Pulse Ox 90 L 04/16/23 10:56 O2 Del Method Oxymask 04/16/23 10:56 O2 Flow Rate 15 04/16/23 10:56 Oxygen Flow Rate 4 04/15/23 00:05 BMI result Body Mass Index 35.5 General? awake ,seems generalised weak? Neck supple, no JVD. CVS? regular rate rhythm,s1s2 heard. Respiratory lungs -air entry seems diminshed ,has few cracles at bases. Gastrointestinal abdomen soft, nontender, bowel sounds audible Extremities b/l pitting edema. Neuro nonfocal ,moving all 4 extremity speech clear. Skin no rash Objective Data Active Medications Acetaminophen (Acetaminophen 325 Mg Tablet) 650 mg PO Q6H PRN PRN Reason: Pain, Mild (Pain Scale 1-3) Last Admin: 04/16/23 13:35 Dose: 650 mg Documented By: NELSY Aspirin (Aspirin Enteric Coated 81 Mg Tablet.) 81 mg PO DAILY [facility] Last Admin: 04/16/23 07:34 Dose: 81 mg Documented By: NELSY Atorvastatin Calcium (Atorvastatin Calcium 40 Mg Tablet) 40 mg PO BEDTIME [facility] Last Admin: 04/15/23 21:42 Dose: 40 mg Documented By: RONIT Carvedilol (Carvedilol 6.25 Mg Tablet) 6.25 mg PO BID [facility]; Protocol Last Admin: 04/16/23 07:33 Dose: 6.25 mg Documented By: NELSY Clopidogrel Bisulfate (Clopidogrel Bisulfate 75 Mg Tablet) 75 mg PO DAILY [facility] Last Admin: 04/16/23 07:33 Dose: 75 mg Documented By: NELSY Docusate Sodium (Docusate Sodium 100 Mg Capsule) 100 mg PO BID [facility] Last Admin: 04/16/23 07:33 Dose: 100 mg Documented By: NELSY Ferrous Sulfate (Ferrous Sulfate 324 Mg Val.) 324 mg PO DAILY [facility] Last Admin: 04/16/23 07:34 Dose: 324 mg Documented By: NELSY Heparin Sodium (Porcine) (Heparin Sodium,Porcine 5,000 Unit/Ml Vial) 5,000 unit SUBCUT BID [facility] Last Admin: 04/16/23 07:34 Dose: 5,000 unit Documented By: NELSY Bumetanide 25 mg/ IV (Miscellaneous Supplies) 100 mls @ 6 mls/hr IVCONT .[id number] [facility] Last Infusion: 04/16/23 12:55 Dose: 1.5 mg/hr, 6 mls/hr Documented By: NELSY Piperacillin Sod/Tazobactam (Sod 2.25 gm/ Sodium Chloride) 50 mls @ 100 mls/hr IV Q6H [facility] Last Admin: 04/16/23 13:35 Dose: 100 mls/hr Documented By: NELSY Vancomycin HCl 750 mg/ Sodium (Chloride) 265 mls @ 265 mls/hr IV Q48H [facility] Ondansetron HCl (Ondansetron Hcl 4 Mg/2 Ml Vial) 4 mg IVPUSH Q8H PRN PRN Reason: Nausea and Vomiting Pharmacy Consult (Consult Rx Vancomycin Dosing) 1 each MISCELLANE DAILY PRN PRN Reason: Consult order Pregabalin (Pregabalin 50 Mg Capsule) 50 mg PO BID [facility] Last Admin: 04/16/23 07:33 Dose: 50 mg Documented By: NELSY Sodium Chloride (0.9 % Sodium Chloride Flush 3 Ml Syringe) 3 ml IVFLUSH QSHIFT [facility] Last Admin: 04/16/23 07:27 Dose: 3 ml Documented By: NELSY Labs 04/16/23 03:58 04/16/23 03:58 Labs: Laboratory Results - last 24 hr 04/16/23 04/16/23 04/16/23 03:58 03:58 03:58 MCV 91.3 MCH 29.7 MCHC 32.6 RDW 14.6 Plt Count 271 MPV 11.1 Absolute Nucleated RBC 0.000 Nucleated RBC % (auto) 0.0 VBG pH VBG pCO2 VBG pO2 VBG HCO3 VBG O2 Saturation VBG Base Excess Anion Gap 23 H Estim Creat Clear Calc 12.8 Estimated GFR 11 Random Glucose 131 H Calcium 9.8 B-Natriuretic Peptide 8127 H 04/16/23 10:45 MCV MCH MCHC RDW Plt Count MPV Absolute Nucleated RBC Nucleated RBC % (auto) VBG pH 7.50 H VBG pCO2 26 VBG pO2 199 VBG HCO3 21 L VBG O2 Saturation 99.0 VBG Base Excess -1.0 Anion Gap Estim Creat Clear Calc Estimated GFR Random Glucose Calcium B-Natriuretic Peptide Microbiology Microbiology Results: Microbiology 04/14/23 22:15 Blood Culture - Preliminary Blood - Venous Coag negative Staphylococcus 04/14/23 22:15 Blood Culture - Preliminary Blood - Venous No growth after 24 hours. Assessment and Plan (1) Heart failure and kidney disease due to high blood pressure: Status: Acute Plan 82F [place]-speaking with PMH of dCHF on 2L O2, CKD IV, HTN, HLD, CAD on medical tx was brought in from home due? shortness of breath and hypoxia at home patient finger oximetry was 85%, daughter called the doctor he advised to increase oxygen to 6 L but since it did not help family called EMS, EMS found oxygenation of 85% on 6 L and blood pressure systolic in 80s, in ED patient blood pressure was stable oxygenation was 95% on 4 L of oxygen she had hemoglobin of 6.6, creatinine of 3.82 around her recent baseline troponin of 2554 and being NPO 4300 patient admitted to [facility] with a diagnosis of a acute anemia and acute on chronic congestive heart failure. Acute on chronic hypoxic respiratory failure 2/2 acute on chronic diastolic CHF exacerbation in settingof advanced renal disease(ckd ). worsening respiratory failure and oxygen demand overnight VBG reviewed pH maintained, [id number] worsening vascular congestion and increasing right pleural effusion i/o : 1665/1200 adjusted IV bumex 1.5 mg /hr drip, added 10mg metolazone ,oxygen nephro recomended Hd-patient denied. Elevated Trop with? presumed CAD: trops trend down than last admission echo 04/15 showed EF 30%, grade 2 moderate diastolic dysfunction with evidence of regional wall motion abnormality no valvular pathology noted, there is a small located pericardial effusion overlying the left ventricle EKG showed ST and T-wave abnormality consider lateral ischemia continue ASA, Coreg, Plavix,? and Statin seen by Cardiology they recommend medical management, due to multiple comorbidities including significant anemia, significant renal impairment. felt not a suitable candidate for invasive? management acute metabolic encephalopathy likely due to hypoxia . Acute on chronic symptomatic anemia s/p 1 units prbc h/h 8.5/26.1 stool guaiac negative, previous iron studies not consistent with iron deficiency anemia. NAHID on ckd 4: in setting of chf nephro recomended Hd-patient denied. blood culture : coagulase neg staph - added Id eval -may need to dc antibiotics Considering multifactorial issues as above including acute on chronic hypoxemic respiratory failure secondary to CHF in setting of advanced renal disease and multiple comorbidities-discussed with cardio and Nephrology: Currently did not respond much with diuresis and supportive treatment above, Discussed with patient's daughter and [id number] in detail length-currently agreed for hospice and want her to comfortable . hospice eval added Time Spent With Patient Time: Total time managing care of this patient today ____ minutes. Quality Stroke Does the patient have a stroke diagnosis?: No VTE Prior VTE?: No VTE Risk Level:: Medical - moderate - high VTE Device Contraindication: Treatment Not Indicated VTE Drug Contraindication: N/A - Med Ordered
--- NOTE | 2023-04-16 15:10 | MHC.CM.PN ---
Hospice Informational has been changed to late afternoon today. CM will follow.
[2023-04-16] MEDS: metOLazone 5 MG TABLET 10 MG PO (15:22)
[2023-04-16 15:48] VITALS: BP 168/79; PULSE 74; RESP 18; TEMP 36.2; O2SAT 94
--- NOTE | 2023-04-16 16:14 | W.PM.IDCN ---
History of Present Illness Data of Consult Service Date: 04/16/23 Requesting physician: Umm Salas Primary Care Provider: Kay Mata MD HPI Reason for consult: shortness of breath She presents to hospital with shortness of breath and hypotension on 04/14 as well as hypoxia to 85% on arrival. She has paraplegia after fall 2018 as well as CKDand DM She has Vera now. Blood culture coagulase negative staph on 04/14. CXR patchy emphysema and increased vascular volume. She has no fever. She was started on Vancomycin and piperacillin/tazobactam. Review of Systems Review of Systems: Yes Unobtainable due to mental condition PMFSH Past Medical History Medical History Abscess of forearm, right Acute on chronic diastolic heart failure Acute respiratory failure with hypoxia Anemia B12 deficiency Chronic renal insufficiency CKD (chronic kidney disease) Congestive heart failure Diabetes Femoral artery stenosis Gram-positive bacteremia Heart failure and kidney disease due to high blood pressure High cholesterol Hypertension Hypoxia Lower extremity edema Psoriasis of scalp PVD (peripheral vascular disease) Family History Family History Father No problems noted. Mother No problems noted. Family history: reviewed and not pertinent Surgical History Surgical History History of female sterilization History of shoulder surgery Social History Social History Household Members: Family Household Members Other:: Daughter Housing: Unknown / Unable to assess Do you presently have visiting nurse or other home services: Yes Alcohol intake: never Patient Tobacco Use Status: Never used Tobacco e-Cigarette/Vaping Use: Never Used Second Hand Smoke Exposure: No Advance Directives Date on File: 04/18/21 service: No Current occupational status: retired and disabled Cognitive needs: Yes Hearing needs: No Vision needs: No Meds Allergies Allergy/AdvReac Type Severity Reaction Status Date / Time Iodinated Contrast Media Allergy Unknown UNKNOWN Verified 08/13/22 16:05 [IODINATED CONTRAST MEDIA] Active Medications: Current Medications Acetaminophen (Acetaminophen 325 Mg Tablet) 650 mg PO Q6H PRN PRN Reason: Pain, Mild (Pain Scale 1-3) Last Admin: 04/16/23 13:35 Dose: 650 mg Aspirin (Aspirin Enteric Coated 81 Mg Tablet.) 81 mg PO DAILY [facility]PL[facility] BY [facility] Last Admin: 04/16/23 07:34 Dose: 81 mg Atorvastatin Calcium (Atorvastatin Calcium 40 Mg Tablet) 40 mg PO BEDTIME REPLACED BY [facility] Last Admin: 04/15/23 21:42 Dose: 40 mg Carvedilol (Carvedilol 6.25 Mg Tablet) 6.25 mg PO BID [facility]; Protocol Last Admin: 04/16/23 07:33 Dose: 6.25 mg Clopidogrel Bisulfate (Clopidogrel Bisulfate 75 Mg Tablet) 75 mg PO DAILY [facility] Last Admin: 04/16/23 07:33 Dose: 75 mg Docusate Sodium (Docusate Sodium 100 Mg Capsule) 100 mg PO BID [facility]PL[facility] Last Admin: 04/16/23 07:33 Dose: 100 mg Ferrous Sulfate (Ferrous Sulfate 324 Mg Tablet.) 324 mg PO DAILY [facility]PL[facility] Last Admin: 04/16/23 07:34 Dose: 324 mg Heparin Sodium (Porcine) (Heparin Sodium,Porcine 5,000 Unit/Ml Vial) 5,000 unit SUBCUT BID [facility]PL[facility] Last Admin: 04/16/23 07:34 Dose: 5,000 unit Bumetanide 25 mg/ IV (Miscellaneous Supplies) 100 mls @ 6 mls/hr IVCONT .[id number] REPLACED BY [facility] Last Infusion: 04/16/23 12:55 Dose: 1.5 mg/hr, 6 mls/hr Piperacillin Sod/Tazobactam (Sod 2.25 gm/ Sodium Chloride) 50 mls @ 100 mls/hr IV Q6H REPLACED BY [facility] Last Infusion: 04/16/23 14:40 Dose: Infused Vancomycin HCl 750 mg/ Sodium (Chloride) 265 mls @ 265 mls/hr IV Q48H REPLACED BY [facility] Ondansetron HCl (Ondansetron Hcl 4 Mg/2 Ml Vial) 4 mg IVPUSH Q8H PRN PRN Reason: Nausea and Vomiting Pharmacy Consult (Consult Rx Vancomycin Dosing) 1 each MISCELLANE DAILY PRN PRN Reason: Consult order Pregabalin (Pregabalin 50 Mg Capsule) 50 mg PO BID [facility]PL[facility]ED BY [facility] Last Admin: 04/16/23 07:33 Dose: 50 mg Sodium Chloride (0.9 % Sodium Chloride Flush 3 Ml Syringe) 3 ml IVFLUSH QSHIFT REPLACED BY [facility] Last Admin: 04/16/23 15:26 Dose: 3 ml Home Medications Medication Instructions Recorded Confirmed Last Taken Type cyanocobalamin (vitamin B-12) 1,000 mcg PO BEDTIME 08/17/22 04/15/23 08/16/22 History 1,000 mcg tablet (Vitamin B-12) multivitamin with folic acid 400 1 tab PO DAILY 08/17/22 04/15/23 08/16/22 History mcg tablet ferrous sulfate 325 mg (65 mg 1 tab PO DAILY 03/07/23 04/15/23 Unknown History iron) tablet (FeroSul) sodium phosphates 19 gram-7 118 ml AR DAILY PRN Constipation 03/07/23 04/15/23 Unknown History gram/118 mL enema (Fleet Enema) Physical Exam Vital Signs: Vital Signs: Last Vital Signs Temp 97.2 F 04/16/23 15:48 Pulse 74 04/16/23 15:48 Resp 18 04/16/23 15:48 BP 168/79 H 04/16/23 15:48 Pulse Ox 94 04/16/23 15:48 O2 Del Method Oxymask 04/16/23 15:48 O2 Flow Rate 15 04/16/23 15:48 Oxygen Flow Rate 4 04/15/23 00:05 BMI result Body Mass Index 35.5 Const: General: cooperative HEENT: Head: Yes normal to inspection Face and sinus: Yes normal facial exam Mouth: Normal oral and palatal mucosa present Teeth and gingiva: dentition normal Eyes: General: appearance normal, both eyes and all related structures Pupils: Equal, round and reactive pupils present Resp: Effort & Inspection: normal respiratory effort Cardio: Rate: regular rate Rhythm: regular rhythm GI: Palpation (GI): Soft to palpation and nontender : General: Yes no CVA tenderness Back/Spine/Pelvis: Back: no CVA tenderness Skin: General skin exam: no rashes or lesions noted Neuro: General: moves all extremities Cranial nerves: Yes Equal, round and reactive pupils present Extrem: General: Yes normal to inspection Psych: Other: somnolent,encephalopathic Results Labs 04/16/23 03:58 04/16/23 03:58 Labs: Short CBC 04/16/23 Range/Units 03:58 WBC 9.4 (4.8-10.8) X10*3/uL Hgb 8.5 L (12.0-16.0) g/dl Hct 26.1 L (37.0-47.0) % Plt Count 271 (160-400) X10*3/uL BMP 04/16/23 03:58 Sodium 131 L Potassium 4.6 Chloride 94 L Carbon Dioxide 19 L BUN 147 H Creatinine 3.76 H Calcium 9.8 Microbiology Microbiology Results: Microbiology 04/14/23 22:15 Blood - Venous Blood Culture - Preliminary Coag negative Staphylococcus 04/14/23 22:15 Blood - Venous Blood Culture - Preliminary No growth after 24 hours. Assessment and Plan (1) CKD (chronic kidney disease) stage 5, GFR less than 15 ml/min: Status: Acute (2) CHF (congestive heart failure), NYHA class IV: Status: Acute (3) Metabolic encephalopathy: Status: Acute I do not see any signs of pneumonia with no lobar infiltrate or fever. She probably has congestive heart failure and has ACS. Plan Stop antibiotics tomorrow if no signs of endocarditis (no bacteremia). Time Spent With Patient Time: Total time managing care of this patient today ____ minutes.
[2023-04-16 19:22] VITALS: BP 128/66; PULSE 75; RESP 16; TEMP 36.1; O2SAT 96
--- NOTE | 2023-04-16 20:06 | PC.NURSE ---
Family had a meeting with hospice nurse haleigh .
[2023-04-16] MEDS: Morphine Sulfate 4 MG/ML CARTRIDGE IVPUSH (23:04)
[2023-04-17] VITALS (7 sets, daily range): BP systolic 127; BP diastolic 60; PULSE 72–89; RESP 14–48; TEMP 36.1; O2SAT 92; BMI 35.7
[2023-04-17] MEDS: 0.9 % Sodium Chloride Flush 3 ML SYRINGE IVFLUSH ×2 (00:24→22:05)
[2023-04-17] MEDS: Bumetanide 25 MG in Container,Empty 0 ML 6 MG IVCONT (02:00)
[2023-04-17 07:41] LABS: Creatinine Clr Calc Pharmacy 12.6; Estimated Glomerular Filt Rate 11
[2023-04-17] MEDS: vancomycin HCL 750 MG in 0.9 % Sodium Chloride 250 ML 265 MG IV (12:15)
--- NOTE | 2023-04-17 13:15 | MHC.CM.PN ---
Per [facility], the outcome of the Hospice Informational yesterday is that family would like Hospice in a SNF. CM awaits SNF bed offers and then will need [facility] auth. is aware and CM will continue to follow.
--- NOTE | 2023-04-17 13:38 | P.PNIM_ITS ---
Subjective Subjective Date of Service: 04/17/23 Interval History: chf/ckd Review of Systems patient more weak sob similar to yesterday no fevers Physical Exam Vital Signs: Vital Signs: Last Vital Signs Temp 96.9 F 04/17/23 00:00 Pulse 82 04/17/23 11:35 Resp 24 H 04/17/23 11:35 BP 127/60 04/17/23 00:00 Pulse Ox 92 04/17/23 00:00 O2 Del Method Nasal Cannula 04/17/23 00:00 O2 Flow Rate 4 04/17/23 00:00 Oxygen Flow Rate 4 04/15/23 00:05 BMI result Body Mass Index 35.7 General? awake ,seems more generalised weak? CVS? regular rate rhythm,s1s2 heard. Respiratory lungs -air entry seems diminshed ,has few cracles at bases. Gastrointestinal abdomen soft, nontender, bowel sounds audible Extremities b/l pitting edema. Neuro nonfocal ,moving all 4 extremity speech clear. Skin no rash Objective Data Active Medications Acetaminophen (Acetaminophen 325 Mg Tablet) 650 mg PO Q6H PRN PRN Reason: Pain, Mild (Pain Scale 1-3) Last Admin: 04/16/23 13:35 Dose: 650 mg Documented By: NELSY Bumetanide 25 mg/ IV (Miscellaneous Supplies) 100 mls @ 6 mls/hr IVCONT .[id number] [facility] Last Admin: 04/17/23 02:00 Dose: 1.5 mg/hr, 6 mls/hr Documented By: TERESA Vancomycin HCl 750 mg/ Sodium (Chloride) 265 mls @ 265 mls/hr IV Q48H [facility] Last Infusion: 04/17/23 13:15 Dose: 0 mls/hr Documented By: ZORAN Morphine Sulfate (Morphine Sulfate 4 Mg/Ml Cartridge) 2 mg IVPUSH Q4H PRN; Protocol PRN Reason: anxiety/restlessness Ondansetron HCl (Ondansetron Hcl 4 Mg/2 Ml Vial) 4 mg IVPUSH Q8H PRN PRN Reason: Nausea and Vomiting Pharmacy Consult (Consult Rx Vancomycin Dosing) 1 each MISCELLANE DAILY PRN PRN Reason: Consult order Sodium Chloride (0.9 % Sodium Chloride Flush 3 Ml Syringe) 3 ml IVFLUSH QSHIFT [facility] Last Admin: 04/17/23 10:05 Dose: Not Given Documented By: ZORNA Non-Admin Reason: IV Running Labs 04/16/23 03:58 04/17/23 06:29 Labs: Laboratory Results - last 24 hr 04/17/23 06:29 Estim Creat Clear Calc 12.6 Estimated GFR 11 Microbiology Microbiology Results: Microbiology 04/14/23 22:15 Blood Culture - Preliminary Blood - Venous Coag negative Staphylococcus 04/14/23 22:15 Blood Culture - Preliminary Blood - Venous Prelim: GPC Gram Stain only 04/16/23 03:58 Blood Culture - Preliminary Blood - Venous No growth after 24 hours. 04/16/23 03:58 Blood Culture - Preliminary Blood - Venous No growth after 24 hours. Assessment and Plan (1) CHF (congestive heart failure), NYHA class IV: Status: Acute (2) Metabolic encephalopathy: Status: Acute Plan 82F Citizen Of [place]-speaking with PMH of dCHF on 2L O2, CKD IV, HTN, HLD, CAD on medical tx was brought in from home due? shortness of breath and hypoxia at home patient finger oximetry was 85%, daughter called the doctor he advised to increase oxygen to 6 L but since it did not help family called EMS, EMS found oxygenation of 85% on 6 L and blood pressure systolic in 80s, in ED patient blood pressure was stable oxygenation was 95% on 4 L of oxygen she had hemoglobin of 6.6, c reatinine of 3.82 around her recent baseline troponin of 2554 and being NPO 4300 patient admitted to [facility] with a diagnosis of a acute anemia and acute on chronic congestive heart failure. Assessment and plan: Patient was admitted for acute metabolic encephalopathy and acute on chronic h ypoxemic respiratory failure possible multifactorial CHF exacerbation, advanced kidney disease related fluid overload, elevated troponin with presumed CAD, acute on chronic anemia : Patient was started on IV diuretics but patient diursed significantly secondary to advanced renal disease, oxygen support and also given PRBC for anemia: Patient's symptoms did not improve much( seen by cardiology and nephro-recomended hospice ,family /patient decided no HD), in addition patient was found to have Gram-positive bacteremia-given IV antibiotics. With above supportive care patient renal function did not improve much, dyspnea and and encephalopathy did not improve. Family decided for comfort measures only. Patient is waiting for rehab placement for hospice/comfort measures. Time Spent With Patient Time: Total time managing care of this patient today ____ minutes. Quality Stroke Does the patient have a stroke diagnosis?: No VTE Prior VTE?: No VTE Risk Level:: Medical - moderate - high VTE Device Contraindication: Treatment Not Indicated VTE Drug Contraindication: N/A - Med Ordered
--- NOTE | 2023-04-17 16:40 | PC.NURSE ---
pt is drowsy with increased work of breathing. Md notified, giving PRN morphine for WOB. Will continue to monitor
[2023-04-17] MEDS: Morphine Sulfate 4 MG/ML CARTRIDGE 2 MG IVPUSH ×2 (17:28→22:03)
--- NOTE | 2023-04-17 23:42 | PM.EVENT ---
Event Note Date of Service: 04/17/23 Event Note: pt at 1140 pm Time Spent With Patient Time: Total time managing care of this patient today ____ minutes.
--- NOTE | 2023-04-18 08:07 | P.DS_ITS ---
DS: Providers Provider Date of Service: 04/18/23 Date of admission: 04/14/23 23:57 Date of discharge: 04/18/23 Primary care physician: Kay Mata MD Consults: 04/14/23 23:57 Consult to Cardiology Routine Consulting Provider: [facility] [place] [facility] Reason for consultation: nstemi,chf Has provider been notified: Yes 04/15/23 10:11 Consult to Nephrology Routine Consulting Provider: Juanjose Barriga Reason for consultation: ckd stage 4 Has provider been notified: Yes 04/16/23 08:21 Consult to Infectious Diseases Routine Consulting Provider: [facility] [place] [facility] Reason for consultation: bacteremia? Has provider been notified: No 04/16/23 10:05 Consult for Sitter Routine Reason for consultation: Encephalopathy 04/16/23 17:19 Consult to Wound Care Routine Consulting Provider: Maddie Caba Reason for consultation: stage 2 to coccyx DS: Diagnosis Discharge Diagnosis (1) CHF (congestive heart failure), NYHA class IV: Status: Acute (2) Metabolic encephalopathy: Status: Acute DS: Summary Hospital Course Hospital Course: As per Hpi: 83-year-old female with past medical history of diastolic CHF on 2 L of O2 at baseline, CKD stage 4, chronic anemia, HTN, HLD, CAD on medical treatment who presented to the hospital with shortness of breath.? Patient is obtunded, history is obtained mostly family EMR and ED physician.? Brought in by family for hypoxia.? Patient was hypoxic at home per family, satting 85%, they had called her doctor which advised him to increase her oxygen to 6 L, which did not help, they called EMS for further evaluation.? EMS reported hypoxia of 85% despite the 6 L of oxygen.? Also reported to be hypotensive with systolic in the 80s.? Patient's family is also concerned about her lower extremity edema. spoke to her daughter over the phone, pt saying that she cant breath. has not had cough, no recent fever. says that she has been slightly more tired. All other review of system unobtainable due to patient's medical presentation On arrival to the ED patient hemodynamically stable with tachypnea respiratory rate in the 30s, blood pressure stable, satting 95% on 4 L of O2 Labs are significant for WBC count is 0.7, hemoglobin of 6.6, hematocrit 20.8, sodium 130, chloride 95, creatinine of 3.82 which is around her recent baseline, troponin of 2554, BNP of 4300 Patient started on Bumex IV, discussion was made with Cardiology through the ED physician, no heparin at this time Patient being transfuse 1 unit of PRBC and will be admitted for further man agement. hospital course: admitted for acute metabolic encephalopathy and acute on chronic hypoxemic respiratory failure possible multifactorial CHF exacerbation, advanced kidney disease related fluid overload, elevated troponin with presumed CAD,? acute on chronic anemia :? Patient was started on IV diuretics but patient diursed significantly secondary to advanced renal disease, oxygen support and? also given PRBC for anemia, in addition patient possible had Gram-positive bacteremia-received IV antibiotics.:? Patient's symptoms did not improve much. seen by cardiology and nephro-multiple comorbidities primarily coronary disease, acute on chronic systolic/diastolic left-sided heart failure, anemia, NSTEMI, chronic kidney disease, frailty, advanced age and given not much response to above conservative medical management -recomended hospice ,family /patient decided no HD. With above supportive care patient renal function did not improve much, dyspnea and and encephalopathy did not improve. Family decided for comfort measures only. Patient was pronounced at 1140 pm(please see night physician note). Time Spent with Patient Time attestation: Total time managing care of this patient today ____ minutes. Discharge coordination time: Greater than 30 minutes Quality: Safe Use of Opioids Does Pt have an Active Cancer Diagnosis on the Problem List?: No Quality: Stroke Does the patient have a stroke diagnosis?: No Physical Exam Vital Signs: Vital Signs: Last Vital Signs Temp 96.9 F 04/17/23 00:00 Pulse 82 04/17/23 11:35 Resp 22 H 04/17/23 22:33 BP 127/60 04/17/23 00:00 Pulse Ox 92 04/17/23 00:00 O2 Del Method Nasal Cannula 04/17/23 00:00 O2 Flow Rate 4 04/17/23 00:00 Oxygen Flow Rate 4 04/15/23 00:05 BMI result Body Mass Index 35.7 patient . DS: Data Data Completed and Pending Completed studies during hospitalization [Text1]: Procedures Assistance with Respiratory Ventilation, 24-96 Consecutive Hours, Continuous Positive Airway Pressure (12/24/22) Drainage of Right Upper Arm Subcutaneous Tissue and Fascia, Open Approach (03/03/21) Excision of Ascending Colon, Via Natural or Artificial Opening Endoscopic, Diagnostic (01/07/21) Excision of Duodenum, Via Natural or Artificial Opening Endoscopic, Diagnostic (01/07/21) Excision of Stomach, Pylorus, Via Natural or Artificial Opening Endoscopic, Diagnostic (01/07/21) Insertion of Infusion Device into Right Brachial Vein, Percutaneous Approach (03/03/21) Transfusion of Nonautologous Red Blood Cells into Peripheral Vein, Percutaneous Approach (03/07/23) Labs on day of discharge: Preliminary micro results at discharge 04/16/23 03:58 Blood Culture - Preliminary Blood - Venous No growth after 48 hours. 04/16/23 03:58 Blood Culture - Preliminary Blood - Venous No growth after 48 hours. 04/14/23 22:15 Blood Culture - Preliminary Blood - Venous Coag negative Staphylococcus 04/14/23 22:15 Blood Culture - Preliminary Blood - Venous Prelim: GPC Gram Stain only Discharge Plan Discharge Date/Time: 04/17/23 23:40 Patient Disposition: Discharge Diagnosis: [employer] Referrals: Kay Chávez MD [Primary Care Provider] - 1 Week Discharge Medications: No Action carvedilol 6.25 mg tablet 6.25 mg PO BID 90 Days Qty: 180 1RF Protocol: Hold for SBP/HR < HOLD for SBP < : 90 HOLD for HR < : 60 clopidogrel 75 mg tablet 75 mg PO DAILY 90 Days Qty: 90 1RF hydralazine 50 mg tablet 100 mg PO TID 90 Days Qty: 540 1RF Protocol: Hold for SBP< HOLD for SBP < : 90 isosorbide dinitrate 10 mg tablet 10 mg PO 0800,1300,1800 90 Days Qty: 270 2RF Protocol: Hold for SBP< HOLD for SBP < : 90 (DME) adult diapers X-large See Rx Instructions .Route .MEDSUPPLY Qty: 240 6RF Rx Instructions: As directed (DME) personal wipes See Rx Instructions .Route .MEDSUPPLY Qty: 300 6RF Rx Instructions: As directed (DME) disposable gloves Misc See Rx Instructions .Route Qty: 200 6RF Rx Instructions: As directed pregabalin 50 mg capsule 50 mg PO BID 30 Days Qty: 60 0RF ipratropium-albuterol 0.5 mg-3 mg(2.5 mg base)/3 mL solution for nebulization 3 ml inhalation RQ4H PRN (Reason: Shortness Of Breath/Wheezing) Qty: 90 0RF morphine concentrate 100 mg/5 mL (20 mg/mL) solution 5 mg PO Q4H PRN (Reason: Pain (Scale Score 4-6)) 30 Days Qty: 45 0RF acetaminophen 325 mg tablet 650 mg PO Q6H PRN (Reason: Pain) 30 Days Qty: 90 0RF amlodipine 10 mg tablet 10 mg PO DAILY 90 Days Qty: 90 1RF aspirin 81 mg tablet,delayed release (DR/EC) 81 mg PO DAILY Qty: 30 0RF atorvastatin 40 mg tablet 40 mg PO BEDTIME Qty: 90 0RF bisacodyl 10 mg suppository 10 mg RI DAILY PRN (Reason: Constipation) 100 Days Qty: 100 1RF bumetanide 1 mg tablet 2 mg PO BID@0800,1700 90 Days Qty: 360 1RF Protocol: Hold for SBP< HOLD for SBP < : 90 (DME) nebulizers Misc See Rx Instructions .Route Qty: 1 0RF Rx Instructions: As directed (DME) underpads [Bed Underpads] Pad See Rx Instructions .Route Qty: 100 11RF Rx Instructions: Use 4 underpads daily cyanocobalamin (vitamin B-12) [Vitamin B-12] 1,000 mcg tablet 1,000 mcg PO BEDTIME multivitamin with folic acid 400 mcg tablet 1 tab PO DAILY Fleet Enema 19-7 gram/118 mL Enema 118 ml RI DAILY PRN (Reason: Constipation) ferrous sulfate [FeroSul] 325 mg (65 mg iron) tablet 1 tab PO DAILY Discharge Date/Time: 04/17/23 23:40
== END 2023-04-17 23:40 | disposition expired ==
LOC: HO.ED 23:32 → HO.EDOVER 04-15 00:02 → HO.IMC 04-15 14:59 → HO.S3 04-17 18:48
PROVIDERS: Hospitalist; Admitting Provider Internal Medicine; Emergency Provider Emergency Medicine; PCP Internal Medicine; Visit Provider Internal Medicine
DX: I13.0 Hypertensive heart and chronic kidney disease with heart failure and stage 1 through stage 4 chronic kidney disease, or unspecified chronic kidney disease (principal); I21.4 Non-ST elevation (NSTEMI) myocardial infarction; G93.41 Metabolic encephalopathy; I50.33 Acute on chronic diastolic (congestive) heart failure; J96.21 Acute and chronic respiratory failure with hypoxia; N18.4 Chronic kidney disease, stage 4 (severe); R78.81 Bacteremia; I25.10 Atherosclerotic heart disease of native coronary artery without angina pectoris; I95.9 Hypotension, unspecified; E66.01 Morbid (severe) obesity due to excess calories; Z68.35 Body mass index [BMI] 35.0-35.9, adult; B95.7 Other staphylococcus as the cause of diseases classified elsewhere; E11.22 Type 2 diabetes mellitus with diabetic chronic kidney disease; Z91.041 Radiographic dye allergy status; D63.1 Anemia in chronic kidney disease; Z99.81 Dependence on supplemental oxygen; Z79.02 Long term (current) use of antithrombotics/antiplatelets; Z79.82 Long term (current) use of aspirin; Z79.899 Other long term (current) drug therapy
CPT/HCPCS: 36415; 71045; 80048; 80053; 82272; 82565; 82803; 83605; 83690; 83880; 84484; 85025; 85027; 86850; 86900; 86901; 86923; 87040; 87077; 87147; 87186; 87205; 93005; 93306; 99285; C1758; J0885; J1643; J1940; J2270; J2543; J3370; P9016; Q9957

== ENCOUNTER 2023-04-14 23:57 | Outpatient (BNV) | payer OTHER, SELFPAY | END 2023-04-15 08:31 | PROVIDERS: Admitting Provider Internal Medicine; Emergency Provider Emergency Medicine; PCP Internal Medicine; Visit Provider Internal Medicine | DX: I36.1 Nonrheumatic tricuspid (valve) insufficiency (principal); I34.0 Nonrheumatic mitral (valve) insufficiency | CPT/HCPCS: 93306 ==

== ENCOUNTER → 2023-04-14 23:57 | Outpatient (BNV) | payer OTHER, SELFPAY | PROVIDERS: Admitting Provider Internal Medicine; Emergency Provider Emergency Medicine; PCP Internal Medicine; Visit Provider Internal Medicine | DX: I50.9 Heart failure, unspecified (principal); G93.41 Metabolic encephalopathy | CPT/HCPCS: 99223; 99232; 99239; 99499 ==

== ENCOUNTER → 2023-04-14 23:57 | Outpatient (BNV) | payer OTHER, SELFPAY | PROVIDERS: Admitting Provider Internal Medicine; Emergency Provider Emergency Medicine; PCP Internal Medicine; Visit Provider Internal Medicine | DX: J81.0 Acute pulmonary edema (principal); J96.01 Acute respiratory failure with hypoxia; I50.9 Heart failure, unspecified; G93.41 Metabolic encephalopathy; N18.9 Chronic kidney disease, unspecified; I21.4 Non-ST elevation (NSTEMI) myocardial infarction; D64.9 Anemia, unspecified | CPT/HCPCS: 99222; 99232 ==

== ENCOUNTER → 2023-04-14 23:57 | Outpatient (BNV) | payer OTHER, SELFPAY | PROVIDERS: Admitting Provider Internal Medicine; Emergency Provider Emergency Medicine; PCP Internal Medicine; Visit Provider Internal Medicine Cardiovascular Disease | DX: I50.9 Heart failure, unspecified (principal); G93.41 Metabolic encephalopathy; D64.9 Anemia, unspecified; Z74.01 Bed confinement status; J45.909 Unspecified asthma, uncomplicated; E87.20 Acidosis, unspecified; I13.0 Hypertensive heart and chronic kidney disease with heart failure and stage 1 through stage 4 chronic kidney disease, or unspecified chronic kidney disease; R77.8 Other specified abnormalities of plasma proteins; N18.4 Chronic kidney disease, stage 4 (severe); J81.0 Acute pulmonary edema; E11.69 Type 2 diabetes mellitus with other specified complication; N17.9 Acute kidney failure, unspecified | CPT/HCPCS: 99291 ==

== ENCOUNTER → 2023-04-14 23:57 | Outpatient (BNV) | payer OTHER, SELFPAY | PROVIDERS: Admitting Provider Internal Medicine; Emergency Provider Emergency Medicine; PCP Internal Medicine; Visit Provider Internal Medicine | DX: N18.5 Chronic kidney disease, stage 5 (principal); I50.9 Heart failure, unspecified; G93.41 Metabolic encephalopathy | CPT/HCPCS: 99222 ==

== ENCOUNTER → 2023-04-17 | Outpatient (RCR) | payer MEDICARE, SELFPAY ==
[2021-02-05 16:25] LABS: MANUAL DIFF FLAG NO
--- NOTE | 2021-02-05 16:26 | PM.HEMONCCN ---
Subjective - Subjective Chief complaint: fatigue Patient: new to practice Consult date: 02/05/21 Medical Summary: Diagnosis: MGUS, vitamin B12 deficiency, iron deficiency. December 2020-patient was admitted For acute hypoxic respiratory failure secondary to acute on chronic diastolic CHF. HPI - Consult Narrative Reason for consult: monoclonal gammopathy Narrative: Kay Zapien is a 80 year old female referred for further evaluation of monoclonal gammopathy. This was detected on blood work during hospitalization for respiratory failure as well as acute on chronic kidney disease in December of 2020. patient reports chronic fatigue in leg swelling. She has no new complaints today such as chest pain or shortness of breath. She is wheelchair-bound and arrived to the clinic by ambulance. She is a poor historian and offers no other complaints. Review of Systems - Constitutional Reports as per HPI, Reports no additional constitutional complaints - Cardiovascular Reports no additional cardiovascular complaints - Respiratory Reports no additional respiratory complaints - Gastrointestinal Reports no additional gastrointestinal complaints PMFSH Medical History: Medical History (Last Reviewed 01/10/21 @ 11:28 by Esthela Hale PT) CKD (chronic kidney disease) Diabetes Femoral artery stenosis High cholesterol Hypertension Lower extremity edema Psoriasis of scalp PVD (peripheral vascular disease) Family History: Family History (Last Reviewed 01/09/21 @ 10:07 by Noé Deal MD) Father No problems noted. Mother No problems noted. Surgical History: Surgical History (Last Reviewed 01/10/21 @ 11:28 by Esthela Hale, PT) History of female sterilization History of shoulder surgery Social History: Social History (Last Reviewed 01/09/21 @ 10:07 by Noé Deal MD) Living Situation History: Household Members: Children Household Members Other:: Daughter Housing: House Do you presently have visiting nurse or other home services: No Alcohol History: Alcohol intake: never Advance Directives: Advance Directives Date on File: 01/08/21 Occupation Assessmet: service: No Current occupational status: retired Current occupational status: disabled Home Medications and Allergies Home Medications Medication Instructions Recorded Confirmed Type amlodipine 10 mg PO DAILY 01/07/21 02/05/21 History atorvastatin 40 mg PO DAILY 01/07/21 02/05/21 History Allergies Allergy/AdvReac Type Severity Reaction Status Date / Time Iodinated Contrast Media Allergy Unknown UNKNOWN Verified 12/26/20 13:27 [IODINATED CONTRAST MEDIA] Physical Exam - Constitutional Present: no acute distress - Routine HEENT Exam Head: Present: normal inspection Comments: left eye opaque - Routine Neck Exam Present: supple - Routine Respiratory Exam Present: CTAB - Routine Cardiovascular Exam Cardiovascular: Present: S1, S2 - Routine Extremities Exam Present: pedal edema Hem/Onc Consult Result - Labs CBC & Chem 7: 02/05/21 16:20 02/05/21 16:20 Assessment and Plan (1) Monoclonal gammopathies Status: Acute 1. This is a 80-year-old woman with multiple medical problems had, chronic anemia related to chronic kidney disease referred for evaluation of IgG lambda monoclonal gammopathy noted on routine blood work. IgG level is not elevated and there is no suppression of other immunoglobulins. She has anemia secondary to chronic kidney disease. She also has severe vitamin B12 deficiency and iron deficiency. She is on supplementation. She does not have hypercalcemia, her total protein and albumin levels are normal. I have submitted serum free kappa, lambda levels and ratio. She most likely has MGUS and this can be monitored. For her anemia, she would benefit from MOON therapy with Procrit. She has had regular follow-ups with her habilitation specialist. I thank you for this consultation. Follow-up in 6 months.
[2021-02-05 16:28] LABS: Basophils Absolute Auto 0.1 X10*3/uL (0.0-0.2); Basophils Percent Auto 0.7 % (0-2); Eosinophils Absolute Auto 0.5 X10*3/uL (0.0-0.4); Eosinophils Percent Auto 6.8 % (0-4); Hematocrit 33.2 % (37-47); Hemoglobin 10.6 g/dl (12.0-16.0); Imm Gran Abs Auto 0.05 X10*3/uL (0.00-0.03); Imm Gran Pct Auto 0.7 % (0.0-0.4); Lymphocytes Absolute Auto 1.2 X10*3/uL (1.2-4.9); Mean Corpuscular HGB Conc 31.9 g/dl (31.0-35.0); Mean Corpuscular Hemoglobin 29.7 pg (27.0-33.0); Mean Platelet Volume 11.1 fL (9.4-12.3); Monocytes Absolute Auto 0.5 X10*3/uL (0.1-1.2); Monocytes Percent Auto 6.4 % (2-11); Neutrophils Absolute Auto 5.4 X10*3/uL (2.0-8.3); Neutrophils Percent Auto 69.4 % (45-73); Platelet Count 298 X10*3/uL (160-400); Red Blood Count 3.57 X10*6/uL (4.20-5.50); Red Cell Distribution Width 14.6 % (11.0-16.0); White Blood Count 7.7 X10*3/uL (4.8-10.8)
--- NOTE | 2021-02-05 16:37 | MHC.HEMONC ---
pt here from [place] and is in w/c. She speaks British and we were assisted by Rob, Dust Sampler. Pt had labs drawn and will be reviewed by Dr Maldonado.
[2021-02-05 17:02] LABS: Alanine Aminotransferase 9 U/L (0-31); Albumin Level 3.5 g/dL (3.5-5.0); Alkaline Phosphatase 90 U/L (39-117); Anion Gap 17 (12-20); Aspartate Amino Transferase 13 U/L (5-31); Bilirubin Total 0.3 mg/dL (0.0-1.0); Blood Urea Nitrogen 55 mg/dL (9-16); Calcium 9.4 mg/dL (8.4-10.2); Carbon Dioxide 24 mmol/L (22-29); Chloride 106 mmol/L (96-108); Estimated Glomerular Filt Rate 14; Glucose Random 194 mg/dL (60-115); Iron 46 mcg/dL (30-160); Percent Iron Saturation 20 % (15-50); Sodium 142 mmol/L (135-145); Total Iron Binding Capacity 229 mcg/dL (228-428); Unsaturated Iron Binding 183 ug/dL
[2021-02-05 17:37] LABS: Folate 8.1 ng/mL (> or = 4.0); Vitamin B12 1209 pg/mL (200-900)
[2021-02-07 20:01] LABS: Kappa Light Chain, Free Serum 127.1 mg/L (3.3-19.4); Kappa/Lambda Lt Ch Free Ratio 0.54 (0.26-1.65); Lambda Light Chain, Free Serum 235.3 mg/L (5.7-26.3)
== END | disposition home or self-care (01) ==
LOC: HO.ONC 02-05 15:52
PROVIDERS: Visit Provider Internal Medicine
DX: D47.2 Monoclonal gammopathy (principal); N18.9 Chronic kidney disease, unspecified; D63.1 Anemia in chronic kidney disease; E53.8 Deficiency of other specified B group vitamins; E61.1 Iron deficiency; I13.0 Hypertensive heart and chronic kidney disease with heart failure and stage 1 through stage 4 chronic kidney disease, or unspecified chronic kidney disease; I50.33 Acute on chronic diastolic (congestive) heart failure; Z79.899 Other long term (current) drug therapy
CPT/HCPCS: 36415; 80053; 82607; 82746; 83520; 83540; 85025; 99204